=== PATIENT | female | born 1935 | race Caucasian/White ===

== ENCOUNTER → 2016-11-09 | Outpatient (CLI) | payer MEDICARE, OTHER ==
[~2016-11-09] MED LIST: ACET1TAB84 PO; FLEC100T21 PO; FLUO1CRE TD; FURO-85 PO; LISI-461 PO; MULTTAB5 PO; POTA20TA16 PO; PRT/20 PO; RIVA1TAB4 PO; TPRSR/100 PO
[2016-11-09 13:01] LABS: BLOOD UREA NITROGEN 14 mg/dl (7-18); BUN/CREATININE RATIO 23.3 (10-20); CALCIUM 9.2 mg/dl (8.5-10.1); CARBON DIOXIDE 28 mmol/L (21-32); CHLORIDE 106 mmol/L (98-107); CREATININE 0.61 mg/dl (0.60-1.20); GLUCOSE 86 mg/dl (70-99); POTASSIUM 4.2 mmol/L (3.5-5.1); SODIUM 142 mmol/L (136-145)
== END | disposition home or self-care (01) ==
LOC: C.LABOAKS 10:58
PROVIDERS: ATTEND Nurse Practitioner
DX: I10 Essential (primary) hypertension (principal)

== ENCOUNTER → 2017-05-04 | Outpatient (CLI) | payer MEDICARE, OTHER ==
--- NOTE | 2017-05-04 16:09 | MAMMOGRAPHY REPORT ---
BILATERAL DIGITAL SCREENING MAMMOGRAM WITH CAD: 05/04/2017 CLINICAL HISTORY: Routine screening. Patient has no complaints. TECHNIQUE: Current study was also evaluated with a Computer Aided Detection (CAD) system. Bilateral CC and MLO views were obtained. COMPARISON: Comparison is made to exams dated: 03/19/2016 mammogram, 02/03/2015 mammogram - [facility], 07/24/2012 mammogram, and 06/21/2011 mammogram. BREAST COMPOSITION: There are scattered areas of fibroglandular density in both breasts. FINDINGS: No suspicious masses, calcifications, or areas of architectural distortion are noted in ei ther breast. There has been no significant interval change compared to prior exams. Scar markers den ote scars on bilateral upper outer breasts. Bilateral benign-appearing calcifications are again note d. A biopsy marker clip is again noted in the left breast. IMPRESSION: ACR BI-RADS CATEGORY 2: BENIGN There is no mammographic evidence of malignancy. A 1 year screening mammogram is recommended. The pa tient will receive written notification of the results. Approximately 10% of breast cancers are not detected with mammography. A negative mammographic report should not delay biopsy if a clinically suggestive mass is present. Francesca Ramirez M.D. /:05/04/2017 15:29:25 [employer] Workers Supervisor: Dorinda NICOLE(Rosy)(Stefani)(BD), [facility] letter sent: Normal 1/2 BI-RADS Code: ACR BI-RADS Category 2: Benign
== END | disposition home or self-care (01) ==
LOC: C.MAMM 15:10
PROVIDERS: ATTEND Obstetrics & Gynecology
DX: Z12.31 Encounter for screening mammogram for malignant neoplasm of breast (principal)

== ENCOUNTER 2019-08-27 06:58 | Inpatient (IN) ==
[2019-08-27] MEDS ORDERED: SODIUM CHLORIDE 0.9% 500 ML IV ONE (07:07)
[2019-08-27] MEDS ORDERED: METOPROLOL SUCC 50MG EXT REL TAB PO STA (07:07)
[2019-08-27 07:21] LABS: Hematocrit (blood only) 43.4 % (37-47); Hemoglobin 13.8 g/dL (12.0-16.0); Mean Corpuscular Hemoglobin 21.9 pg (25-34); Mean Corpuscular Hgb Conc 31.8 g/dL (32-36); Mean Corpuscular Volume 68.9 fL (80-100); Mean Platelet Volume 9.9 fL (7.4-10.4); Platelet Count 177 K/uL (130-400); RDW Coefficient of Variation 15.7 % (11.5-14.5); RDW Standard Deviation 38.1 fL (36.4-46.3); White Blood Count 6.79 K/uL (4.8-10.8)
--- NOTE | 2019-08-27 07:22 | XRay Report ---
XR chest 1V portable CLINICAL HISTORY: weakness dyspnea COMPARISON STUDY: 10/28/2016 FINDINGS: Mild cardiomegaly. Chronic pleural scarring left lung base. Lungs otherwise appear clear. IMPRESSION: Mild cardiomegaly. Otherwise negative study. The above report was generated using voice recognition software. It may contain grammatical, syntax or spelling errors. Electronically signed by: Roderick Hernandes M.D. 08/27/2019 7:21 AM
[2019-08-27 07:38] LABS: Appearance Urine Clear (Clear); Bilirubin Urine Negative (Negative); Blood Urine Trace (Negative); Color Urine Yellow; Glucose Urine UA Negative (Negative); Ketones Urine Negative (Negative); Leukocyte Esterase Urine 2+ (Negative); Nitrite Urine Negative (Negative); Protein Urine Trace (Negative); Urobilinogen Urine Negative (Negative)
[2019-08-27 07:39] LABS: Alanine Aminotransferase 25 U/L (12-78); Albumin Level 4.1 gm/dl (3.4-5.0); Aspartate Aminotransferase 26 U/L (15-37); Blood Urea Nitrogen 14 mg/dl (7-18); Calcium 9.1 mg/dl (8.5-10.1); Carbon Dioxide 26 mmol/L (21-32); Chloride 105 mmol/L (98-107); Creatinine Clr Calc Pharmacy 61.8 ml/min; Est GFR (African American) 89.1; Est GFR (Non-African American) 76.9; Glucose 98 mg/dl (70-99); Potassium 4.1 mmol/L (3.5-5.1); Sodium 139 mmol/L (136-145)
[2019-08-27] MEDS ORDERED: cefTRIAXone SODIUM 2,000 MG/70 ML BAG IV STA (07:48)
[2019-08-27 07:49] LABS: ALC (manual) 2.16 K/uL (1.2-3.4); ANC (manual) 4.15 K/uL (1.4-6.5); Anisocytosis Present; Basophils # (manual) 0.06 K/uL (0-0.2); Basophils % (manual) 0.9 %; Eosinophils # (manual) 0.06 K/uL (0-0.5); Eosinophils % (manual) 0.9 %; Lymphocytes # (manual) 1.02 K/uL (1.2-3.4); Microcytosis Present; Monocytes # (manual) 0.36 K/uL (0.11-0.59); Monocytes % (manual) 5.3 %; Neutrophils # (manual) 4.15 K/uL (1.4-6.5); Neutrophils % (manual) 61.1 %; Ovalocytes 1+; Poikilocytosis Present; Reactive Lymphocytes # (manual) 1.14 K/uL; Reactive Lymphocytes % (manual) 16.8 %
[2019-08-27 07:51] LABS: Albumin Globulin Ratio 1.2 (0.9-2); Alkaline Phosphatase 74 U/L (45-117); Bilirubin,Total 1.5 mg/dl (0.2-1); Creatine Kinase 52 U/L (26-192); Creatine Kinase MB 1.1 ng/ml (0.5-3.6); Globulin 3.3 gm/dl (2.5-4.0); Thyroid Stimulating Hormone 0.674 uIu/ml (0.300-4.500); Total Protein 7.4 gm/dl (6.4-8.2); Troponin I < 0.015 ng/ml (0-0.045)
[2019-08-27 08:02] LABS: Bacteria Urine Negative (Negative); Epithelial Cell Urine >30 /lpf (0-5); RBC Urine 0-4 /hpf (0-4); WBC Urine >30 /hpf (0-5)
[2019-08-27] MEDS ORDERED: NITROGLYCERIN SL 0.4 MG/TAB TAB SL STA (08:24)
[2019-08-27] MEDS ORDERED: ASPIRIN CHEW 324 MG PO STA (08:24)
--- NOTE | 2019-08-27 09:46 | History & Physical Report ---
Date of Service August 27, 2019 Assessment & Plan (1) Chest pain: Began at 0500 this am upon awakening. Substernal with radiation to b/l shoulders and her back. Only major CAD risk factor is HTN. No family h/o CAD. Pain did improved from 8/10 to 3/10 with SL nitroglycerin. Additional nitropaste 1/2 inch x 1 given in ER for ongoing HTN and chest discomfort. I am uncertain if pain is ischemic vs related to markedly elevated BP vs other. In light of location and radiation of pain along with markedly elevated BP will obtain CTA dissection protocol to r/o aortic dissection. If CTA is negative plan for -- * improved BP control * serial troponins * 2D echo * telemetry Results of above studies will dictate plan of care. Consider stress test tomorrow. Consider formal cardiology consultation (sees Dr Holman from [facility]). If ischemic w/u is negative it is possible her pain/other symptoms are due to the uncontrolled HTN. (2) Hypertensive emergency without congestive heart failure: The patient took her lisinopril this am upon awakening. She also was given metoprolol xl in the ER. BPs briefly responded to this, but systolic BP is now back to 200. Nitro SL and nitropaste were given in the ER without any effect. Will provide amlodipine 5mg po x 1 now. Continue daily lisinopril. Continue BID toprol xl. Records indicate she was on HCTZ in the past. Consider changing her daily lasix to HCTZ. Her BPs have been challenging to control over the last few months and she has had several dose adjustments of her meds. Consider secondary work-up (renin, chidi levels; etc). TSH noted to be normal. Anxiety could be contributing as she reports significant stressors in her life. Fortunately patient appears compensated from CHF standpoint. (3) Paroxysmal atrial fibrillation: In NSR at time of presentation. Cont BB. Cont flecainide. Cont xarelto. Telemetry. (4) Anxiety: Cont klonipin BID. Could consider dose increase if anxiety is felt to be contributing to elevated BPs. (5) Asymptomatic bacteriuria: No symptoms of UTI at this time. Was given rocephin in ER for dirty u/a. Would defer on additional antibiotics at this time. (6) Thalassemia minor: Known diagnosis. This explains her chronic microcytosis. Would defer on additional work-up (iron studies, Hb electrophoresis). CBC is stable. (7) DVT prophylaxis: xarelto place on observation status History of Present Illness Chief Complaint: weakness, chest pain Primary Care Provider: Olman Vigil MD 84yo female with history of PAF who presents with weakness starting at 0500 this am upon awakening. As she went through her morning she simply didn't feel well and felt weak. She checked her BP on her home machine and it "didn't register" because it was so high. She reports recent issues with her HTN (poor control). When the BP machine wouldn't register a blood pressure she immediately took her lisinopril. In fact this medication was recently increased to 40mg from 20mg about 1 month ago. Prior to the increase her morning systolic BPs were 170s. She also had a recent increase in her toprol xl from once daily to BID dosing. Since the toprol xl increase her overall control has finally been better. In addition to the weakness she felt lightheaded and dizzy. No vomiting. No dyspnea. Did have nausea in the middle of the night but none in the ER. She also had chest discomfort - substernal - that radiated through her chest to the back. This occurred about 5am. The pain has lasted all morning. Was relieved with SL nitro. Her pain was 8/10 on pain scale early this am. It is now down to a 3/10. The pain never traveled into the arms or hands but it DID travel to both shoulders. No pain in neck or jaw. No sweats. Allergies Allergy/AdvReac Type Severity Reaction Status Date / Time metronidazole Allergy Intermediate HIVES Verified 08/27/19 08:03 naproxen Allergy Unknown HIVES Verified 08/27/19 08:03 Home Medications Home Medications Medication Instructions Recorded Confirmed Type clonazepam 0.125 mg disintegrating 0.125 mg PO BID tab 07/28/19 08/27/19 History tablet flecainide 100 mg tablet 100 mg PO Q12H #180 tab 07/28/19 08/27/19 History furosemide 40 mg tablet 40 mg PO DAILY tab 07/28/19 08/27/19 History lorazepam 0.5 mg tablet 0.5 mg PO PM PRN tab 07/28/19 08/27/19 History pantoprazole 20 mg tablet,delayed 20 mg PO QAM 07/28/19 08/27/19 History release potassium chloride ER 20 mEq 20 meq PO DAILY tab 07/28/19 08/27/19 History tablet,extended release rivaroxaban 20 mg tablet 20 mg PO QDD tab 07/28/19 08/27/19 History acetaminophen [Tylenol Extra 500 mg PO QID PRN 08/27/19 08/27/19 History Strength] fluocinolone 1 applic TOPICAL BID PRN 08/27/19 08/27/19 History lisinopril 40 mg PO DAILY 08/27/19 08/27/19 History metoprolol succinate [Toprol XL] 150 mg PO BID 08/27/19 08/27/19 History multivitamin 1 tab PO QAM 08/27/19 08/27/19 History Past Med/Surg History Medical History Biopsy of breast (Resolved 02/01/13) [id number] (Acute) Hypokalemia (Acute) Palpitations (Acute 09/05/13) Urinary tract infection (Acute) Dizziness (Acute 09/05/13) Chest pain (Acute) Atrial fibrillation with rapid ventricular response (Chronic) CHF (congestive heart failure) (Chronic) Acute on chronic diastolic CHF (congestive heart failure) (Acute) Atrial fibrillation with rapid ventricular response (Resolved) Congestive heart failure (Acute) Paroxysmal atrial fibrillation (Chronic) Surgical History History of hysterectomy (Chronic) with BSO History of 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 History of dilatation and curettage x 2 Family History Father , age 60 Colorectal cancer Mother , age 98 Dementia Hypertension Stroke Sister , age 60s Mesothelioma Social History Preferred Language: Greek Communication Ability: Effective Configuration Consultant Required: No Beliefs That Will Affect Care: None marital status: Current Living Situation: Alone Current Living Situation Comment: lives at [facility] current occupational status: 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) Other Information That Helps Us Care for You: No other: 2 daughters Feels Safe at Home: Yes Safety Concerns: Feels Safe At This Time Smoking Status: Never smoker Do You Dip or Chew Tobacco: No ; Second Hand Exposure: No ; Tobacco Cessation Education Requested by Patient: No Hx Alcohol Use: Yes Alcohol type: wine Alcohol Intake Frequency: Weekly Hx Substance Use: No Review of Systems Constitutional: no fever, no chills, no fatigue and no anorexia Eyes: no worsening vision Ear, Nose, Mouth, Throat: no nasal congestion, no sore throat and no dysphagia Respiratory: + dyspnea (today only) and + dyspnea on exertion (today only) Cardiovascular: + palpitations; no chest pain and no edema Gastrointestinal: + nausea; no abdominal pain, no vomiting and no blood in stools Genitourinary: no dysuria and no difficulty urinating Musculoskeletal: + joint pain (shoulders) Integumentary: no rash Neurologic: no numbness Psychiatric: + anxiety Endocrine: no DM Hematologic / Lymphatic: no easy bleeding Physical Exam Constitutional: well developed, well nourished and average body habitus; no acute distress and no altered mental status Eyes: PERRL (lens implants b/l) ENMT: external ear and nose normal, oropharynx normal Ears: no TM abnormality Neck: trachea midline, no thyromegaly Respiratory: no respiratory distress and does not use accessory muscles Auscultation: + crackles (left base); no wheezes Cardiovascular: Rate/Rhythm: regular rate and regular rhythm Heart Sounds: normal S1 and normal S2; no murmur Vessels: posterior tibial pulses present, dorsalis pedis pulses present and radial pulses present (symmetric, 2+ b/l ); no JVD Extremities: no edema right carotid upstroke is visually very promine nt Chest (Breasts): Additional Comments: no tenderness to palpation of chest wall Gastrointestinal (Abdomen): normal bowel sounds, soft, nontender, no hepatosplenomegaly Musculoskeletal: no cyanosis or clubbing, extremities motor strength 5/5 Skin: no rashes, warm and dry Neurologic: deep tendon reflexes 2+ bilaterally and moves all extremities; no focal motor deficits Psychiatric: A+Ox3, euthymic affect Lymphatic: no cervical lymphadenopathy Results & Data Vital Signs (Past 12 Hours) Vital Signs Temp Pulse Pulse Resp BP BP Pulse Ox 08/27/19 08:22 51 L 16 169/70 H 96 08/27/19 07:30 57 L 17 193/81 H 97 08/27/19 07:21 58 L 96 08/27/19 07:15 36.5 C 60 16 227/98 H 96 Laboratory Results Laboratory Results - last 24 hr 08/27/19 08/27/19 08/27/19 07:00 07:00 07:30 WBC 6.79 RBC 6.30 H Hgb 13.8 Hct 43.4 MCV 68.9 L MCH 21.9 L MCHC 31.8 L RDW Std Deviation 38.1 RDW Coeff of Mikayla 15.7 H Plt Count 177 MPV 9.9 Immature Gran % (Auto) 0.3 Neut % (Auto) 51.8 Lymph % (Auto) 37.0 Nobles % (Auto) 7.8 Eos % (Auto) 2.7 Baso % (Auto) 0.4 Immature Gran # (Auto) 0.02 Neut # (Auto) 3.52 Lymph # (Auto) 2.51 Nobles # (Auto) 0.53 Eos # (Auto) 0.18 Baso # (Auto) 0.03 Neutrophils % (Manual) 61.1 Lymphocytes % (Manual) 15.0 Reactive Lymphs % (Man) 16.8 Monocytes % (Manual) 5.3 Eosinophils % (Manual) 0.9 Basophils % (Manual) 0.9 Neutrophils # (Manual) 4.15 Total Absolute Neuts 4.15 Lymphocytes # (Manual) 1.02 L Reactive Lymphs # 1.14 Total Abs Lymphocytes 2.16 Monocytes # (Manual) 0.36 Eosinophils # (Manual) 0.06 Basophils # (Manual) 0.06 Poikilocytosis Present Anisocytosis Present Microcytosis Present Ovalocytes 1+ Sodium 139 Potassium 4.1 Chloride 105 Carbon Dioxide 26 Anion Gap 8.0 BUN 14 Creatinine 0.72 Est Cr Clr Drug Dosing 61.8 Est GFR ( Amer) 89.1 Est GFR (Non-Af Amer) 76.9 BUN/Creatinine Ratio 19.0 Glucose 98 Calcium 9.1 Total Bilirubin 1.5 H AST 26 ALT 25 Alkaline Phosphatase 74 Total Creatine Kinase 52 CK-MB (CK-2) 1.1 CK/CKMB % Calc 2.1 Troponin I < 0.015 Total Protein 7.4 Albumin 4.1 Globulin 3.3 Albumin/Globulin Ratio 1.2 TSH 0.674 Specimen Hemolysis Urine Color Yellow Urine Appearance Clear Urine pH 7.0 Ur Specific Jay 1.010 Urine Protein Trace H Urine Glucose (UA) Negative Urine Ketones Negative Urine Blood Trace H Urine Nitrite Negative Urine Bilirubin Negative Urine Urobilinogen Negative Ur Leukocyte Esterase 2+ H Urine RBC 0-4 Urine WBC >30 H Ur Epithelial Cells >30 H Urine Bacteria Negative 08/27/19 08:40 WBC RBC Hgb Hct MCV MCH MCHC RDW Std Deviation RDW Coeff of Mikayla Plt Count MPV Immature Gran % (Auto) Neut % (Auto) Lymph % (Auto) Nobles % (Auto) Eos % (Auto) Baso % (Auto) Immature Gran # (Auto) Neut # (Auto) Lymph # (Auto) Nobles # (Auto) Eos # (Auto) Baso # (Auto) Neutrophils % (Manual) Lymphocytes % (Manual) Reactive Lymphs % (Man) Monocytes % (Manual) Eosinophils % (Manual) Basophils % (Manual) Neutrophils # (Manual) Total Absolute Neuts Lymphocytes # (Manual) Reactive Lymphs # Total Abs Lymphocytes Monocytes # (Manual) Eosinophils # (Manual) Basophils # (Manual) Poikilocytosis Anisocytosis Microcytosis Ovalocytes Sodium Potassium Chloride Carbon Dioxide Anion Gap BUN Creatinine Est Cr Clr Drug Dosing Est GFR ( Amer) Est GFR (Non-Af Amer) BUN/Creatinine Ratio Glucose Calcium Total Bilirubin AST ALT Alkaline Phosphatase Total Creatine Kinase CK-MB (CK-2) CK/CKMB % Calc Troponin I < 0.015 Total Protein Albumin Globulin Albumin/Globulin Ratio TSH Specimen Hemolysis Urine Color Urine Appearance Urine pH Ur Specific Jay Urine Protein Urine Glucose (UA) Urine Ketones Urine Blood Urine Nitrite Urine Bilirubin Urine Urobilinogen Ur Leukocyte Esterase Urine RBC Urine WBC Ur Epithelial Cells Urine Bacteria Diagnostic Findings 1. chest - scarring left base, otherwise no infiltrates 2. EKG #1 - my reading - sinus leilani, first degree AV block, RSR' pattern anterior leads; no ST changes 3. EKG #2 - my reading - sinus leilani, first degree AV block, RSR' pattern, nonspecific ST changes III, AVF Code Status & VTE Plan Code Status DNR VTE Prophylaxis Plan VTE Prophylaxis will be ordered: Yes PG Care Time/CCT Total # of Minutes Spent Total Time Spent with Patient: Total time spent is greater than 50% in c oordination of care (as documented) at patient's floor/unit and/or counseling patient: (1) Chest pain Chest pain type: unspecified Qualified Code(s): R07.9 - Chest pain, unspecified
[2019-08-27] MEDS ORDERED: NITROGLYCERIN 2% OINTMENT 30GM TUBE EXT ONE (09:59)
[2019-08-27] MEDS ORDERED: AMLODIPINE BESYLATE 5 MG TAB PO ONE (10:42)
[2019-08-27] MEDS ORDERED: OPTIRAY 320 125ml IV PRN (10:57)
--- NOTE | 2019-08-27 11:18 | CT Scan Report ---
CT angio chest dissec wo/w con CT DOSE: 1217.23 mGycm HISTORY: Pain cp, b/l shoulder back pain, HTN; eval dissection TECHNIQUE: Multiaxial CT images of the chest, abdomen, and pelvis were performed both before and afte r the intravenous administration of contrast to evaluate the aorta. Maximal intensity projection imag es were also obtained. A dose lowering technique was utilized adhering to the principles of ALARA. COMPARISON STUDY: None. FINDINGS: Moderate cardiomegaly. Pulmonary vasculature enhances appropriately. Thoracic aorta shows minimal scattered atherosclerotic change. There is no evidence for aneurysm or d issection. Mild dependent bibasilar atelectasis. Lungs otherwise appear clear. IMPRESSION: 1. No evidence for aneurysm or dissection. 2. Moderate cardiomegaly. 3. Dependent bibasilar atelectasis. The above report was generated using voice recognition software. It may contain grammatical, syntax or spelling errors. Electronically signed by: Roderick Hernandes M.D. 08/27/2019 11:17 AM
[2019-08-27] MEDS ORDERED: NITROGLYCERIN SL 0.4 MG/TAB TAB SL PRN (11:39)
[2019-08-27] MEDS ORDERED: ONDANSETRON INJ 2 MG/ML 2 ML VIAL IV PRN (11:39)
[2019-08-27] MEDS ORDERED: SODIUM CHLORIDE 0.9% 1000ML 1,000 ML IV SCH (12:00)
[2019-08-27] MEDS ORDERED: ACETAMINOPHEN 500 MG TAB ONE (14:03)
[2019-08-27] MEDS: ACETAMINOPHEN 500 MG TAB PO PRN ×2 (14:04→20:31)
[2019-08-27] MEDS: FLECAINIDE ACETATE 100 MG TABLET PO SCH ×2 (14:05→20:30)
[2019-08-27] MEDS: RIVAROXABAN 20 MG TAB PO SCH (16:17)
--- NOTE | 2019-08-27 16:31 | Emergency Department Note ---
Entered by Tonny Coates acting as a scribe for History of Present Illness General Chief complaint: Chest Pain Stated complaint: chest pain Time Seen by Provider: 08/27/19 07:00 Source: patient History of Present Illness Provider complaint: Weakness Onset (ago): hour(s) (This morning) Location: head Radiation: non-radiation Pain Consistency: + constant Quality: + other (Pressure) Associated symptoms: + chest pain (Pressure) and + weakness The patient is an 84 year old female who presents to the Emergency Room with complaints of constant generalized weakness that she noticed this morning upon waking up. The patient states that when she noticed the weakness she took her blood pressure and it was too high to be read on her machine. The patient notes that she has taken her 40mg Lisinopril dose this morning but has not taken her Metoprolol. The patient adds that she had some chest pressure as well. The patient has a history of anxiety and admits to being anxious over this past week. The patient states that she took one of her Klonopin this morning. The patient denies any abdominal pain. Per EMS she has a history of Afib and CHF. EMS reports her pressures were initially 240s/100s but upon arrival to the ED they were around 180/90. Her pulses en route were in the 50s. The only medication she received from EMS was 324mg Aspirin. Home Medications Home Medications Medication Instructions Recorded Confirmed Type clonazepam 0.125 mg disintegrating 0.125 mg PO BID tab 07/28/19 08/27/19 History tablet flecainide 100 mg tablet 100 mg PO Q12H #180 tab 07/28/19 08/27/19 History furosemide 40 mg tablet 40 mg PO DAILY tab 07/28/19 08/27/19 History lorazepam 0.5 mg tablet 0.5 mg PO PM PRN tab 07/28/19 08/27/19 History pantoprazole 20 mg tablet,delayed 20 mg PO QAM 07/28/19 08/27/19 History release potassium chloride ER 20 mEq 20 meq PO DAILY tab 07/28/19 08/27/19 History tablet,extended release rivaroxaban 20 mg tablet 20 mg PO QDD tab 07/28/19 08/27/19 History acetaminophen [Tylenol Extra 500 mg PO QID PRN 08/27/19 08/27/19 History Strength] fluocinolone 1 applic TOPICAL BID PRN 08/27/19 08/27/19 History lisinopril 40 mg PO DAILY 08/27/19 08/27/19 History metoprolol succinate [Toprol XL] 150 mg PO BID 08/27/19 08/27/19 History multivitamin 1 tab PO QAM 08/27/19 08/27/19 History Allergies Allergy/AdvReac Type Severity Reaction Status Date / Time metronidazole Allergy Intermediate HIVES Verified 08/27/19 08:03 naproxen Allergy Unknown HIVES Verified 08/27/19 08:03 Past Med/Surg History Medical History Biopsy of breast (Resolved 02/01/13) [id number] (Acute) Hypokalemia (Acute) Palpitations (Acute 09/05/13) Urinary tract infection (Acute) Dizziness (Acute 09/05/13) Chest pain (Acute) Atrial fibrillation with rapid ventricular response (Chronic) CHF (congestive heart failure) (Chronic) Acute on chronic diastolic CHF (congestive heart failure) (Acute) Atrial fibrillation with rapid ventricular response (Resolved) Congestive heart failure (Acute) Paroxysmal atrial fibrillation (Chronic) Surgical History History of hysterectomy (Chronic) with BSO History of 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 History of dilatation and curettage x 2 Family History Father , age 60 Colorectal cancer Mother , age 98 Dementia Hypertension Stroke Sister , age 60s Mesothelioma Social History Preferred Language: Occitan Communication Ability: Effective 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 Beliefs That Will Affect Care: None marital status: Current Living Situation: Alone Current Living Situation Comment: lives at the [facility] current occupational status: 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 and A total of 10 systems reviewed and were otherwise negative Physical Exam Vital Signs Vital Signs - 24 hr 08/27/19 08:22 08/27/19 10:00 Pulse Rate [Apical] 51 L 61 Pulse Rhythm [Apical] Regular Regular Respiratory Rate 16 17 Respiratory Effort / Characteristics Non-Labored Spontaneous Non-Labored Spontaneous Respiratory Depth Normal Normal Respiratory Pattern Regular Regular Blood Pressure [Right Arm] 169/70 H 208/73 H Blood Pressure Mean [Right Arm] 103 118 Pulse Oximetry 96 96 Oxygen Delivery Method Room Air Room Air GENERAL: Awake, alert, well-appearing, in no distress HENT: Normocephalic, atraumatic. Oropharynx unremarkable. EYES: Normal conjunctiva. Sclera non-icteric. NECK: Supple. No nuchal rigidity. FROM. No masses. RESPIRATORY: Clear to auscultation. No wheezes. No rales. Normal respiratory effort. CARDIAC: Normal rate. Normal rhythm. No murmurs. No rubs. Extremities warm and well perfused. Pulses equal. No JVD. GI: Soft, non-distended. No tenderness to palpation. No rebound or guarding. No masses. RECTAL: Deferred. MUSCULOSKELETAL: Atraumatic. Chest examination reveals no tenderness. The back is symmetrical on inspection without obvious abnormality. There is no CVA tenderness to palpation. No joint edema. LOWER EXTREMITIES: Calves are equal size bilaterally and non-tender. No edema. No discoloration. NEURO: Normal sensorium. No sensory or motor deficits noted. Course 0700: Past medical records reviewed. The patient was evaluated in room B10, and a complete history and physical examination were performed. 822: I reevaluated the patient and she is now complaining of chest pain. 929: I reassessed the patient and she is feeling much better. I discussed the treatment plan with the patient and she agreed. 0939: I spoke to Dr. Luis Narayan [facility] Hospitalist about the patient's case. He is going to accept the patient for further evaluation. Consultations Consultation #1: I spoke to Dr. Luis Narayan [facility] Hospitalist about the patient's case. He is going to accept the patient for further evaluation. Time: 09:39 Administered Medications Acetaminophen (Tylenol) 500 mg PO QID PRN PRN Reason: Pain Stop: 09/26/19 11:38 Last Admin: 08/28/19 03:21 Dose: 500 mg Documented by: [id number] Admin: 08/27/19 20:31 Dose: 500 mg Documented by: [id number] Admin: 08/27/19 14:04 Dose: 500 mg Documented by: [id number] Cosigned by: [id number] Clonazepam (Klonopin) 0.125 mg PO BID RAMIRO Stop: 09/26/19 20:59 Last Admin: 08/27/19 20:31 Dose: 0.125 mg Documented by: [id number] Flecainide Acetate (Tambocor) 100 mg PO Q12 RAMIRO Stop: 09/26/19 11:38 Last Admin: 08/27/19 20:30 Dose: 100 mg Documented by: [id number] Admin: 08/27/19 14:05 Dose: 100 mg Documented by: [id number] Cosigned by: [id number] Ioversol (Optiray 320 125ml) 120 ml IV ONCE PRN PRN Reason: Interaction Checking Stop: 08/31/19 10:56 Last Admin: 08/27/19 10:58 Dose: 120 ml Documented by: [id number] Metoprolol Succinate (Toprol Xl) 150 mg PO BID RAMIRO Stop: 09/26/19 20:59 Last Admin: 08/27/19 20:30 Dose: 150 mg Documented by: [id number] Rivaroxaban (Xarelto) 20 mg PO QDD RAMIRO Stop: 09/26/19 16:29 Last Admin: 08/27/19 16:17 Dose: 20 mg Documented by: [id number] Discontinued Medications Acetaminophen (Tylenol) Confirm Administered Dose 500 mg .ROUTE .STK-MED ONE Stop: 08/27/19 14:04 Last Admin: 08/27/19 15:30 Dose: Not Given Documented by: [id number] Amlodipine Besylate (Norvasc) 5 mg PO NOW ONE Stop: 08/27/19 10:43 Last Admin: 08/27/19 11:02 Dose: 5 mg Documented by: [id number] Aspirin (Aspirin) 324 mg PO NOW STA Stop: 08/27/19 08:25 Last Admin: 08/27/19 08:27 Dose: 324 mg Documented by: [id number] Sodium Chloride (Nss) 500 mls @ 999 mls/hr IV .Q31M ONE Stop: 08/27/19 07:37 Last Infusion: 08/27/19 09:04 Dose: 0 mls/hr Documented by: [id number] Admin: 08/27/19 07:24 Dose: 999 mls/hr Documented by: [id number] Ceftriaxone Sodium (Rocephin) 2,000 mg in 70 mls @ 140 mls/hr IV NOW STA Stop: 08/27/19 08:17 Last Infusion: 08/27/19 09:04 Dose: 0 mls/hr Documented by: [id number] Admin: 08/27/19 08:22 Dose: 140 mls/hr Documented by: [id number] Sodium Chloride (Nss 1000ml) 1,000 mls @ 100 mls/hr IV .Q10H RAMIRO Stop: 08/27/19 16:59 Last Infusion: 08/27/19 18:41 Dose: 0 mls/hr Documented by: [id number] Admin: 08/27/19 11:57 Dose: 100 mls/hr Documented by: [id number] Metoprolol Succinate (Toprol Xl) 100 mg PO NOW STA Stop: 08/27/19 07:08 Last Admin: 08/27/19 07:24 Dose: 100 mg Documented by: [id number] Nitroglycerin (Nitrostat) 0.4 mg SL NOW STA Stop: 08/27/19 08:25 Last Admin: 08/27/19 08:28 Dose: 0.4 mg Documented by: [id number] Nitroglycerin (Nitro-Bid 2%) 0.5 inch EXT NOW ONE Stop: 08/27/19 10:00 Last Admin: 08/27/19 10:13 Dose: 0.5 inch Documented by: [id number] Medical Decision Making Differential Diagnosis Differential Diagnosis includes but is not limited to dehydration, stroke, anem ia, hypoglycemia, hyponatremia, hypernatremia, urinary tract infection, pneumonia, bronchitis, sepsis, gastroenteritis, additional abdominal pathology, metabolic abnormalities and infections. Medical Records Attestation: I reviewed the patient's medical records. Home Medications Current Medication List: was personally reviewed by me Laboratory Data Attestation: I reviewed the patient's lab results. Result diagrams: 08/27/19 07:00 08/28/19 06:42 Lab Results 08/27/19 08/27/19 08/27/19 Range/Units 07:00 07:00 07:30 WBC 6.79 (4.8-10.8) K/uL RBC 6.30 H (4.2-5.4) M/uL Hgb 13.8 (12.0-16.0) g/dL Hct 43.4 (37-47) % MCV 68.9 L (80-100) fL MCH 21.9 L (25-34) pg MCHC 31.8 L (32-36) g/dL RDW Std Deviation 38.1 (36.4-46.3) fL RDW Coeff of Mikayla 15.7 H (11.5-14.5) % Plt Count 177 (130-400) K/uL MPV 9.9 (7.4-10.4) fL Immature Gran % (Auto) % Neut % (Auto) % Lymph % (Auto) % [place] % (Auto) % Eos % (Auto) % Baso % (Auto) % Immature Gran # (Auto) (0.00-0.02) K/uL Neut # (Auto) (1.4-6.5) K/uL Lymph # (Auto) (1.2-3.4) K/uL [place] # (Auto) (0.11-0.59) K/uL Eos # (Auto) (0-0.5) K/uL Baso # (Auto) (0-0.2) K/uL Neutrophils % (Manual) 61.1 % Lymphocytes % (Manual) 15.0 % Reactive Lymphs % (Man) 16.8 % Monocytes % (Manual) 5.3 % Eosinophils % (Manual) 0.9 % Basophils % (Manual) 0.9 % Neutrophils # (Manual) 4.15 (1.4-6.5) K/uL Total Absolute Neuts 4.15 (1.4-6.5) K/uL Lymphocytes # (Manual) 1.02 L (1.2-3.4) K/uL Reactive Lymphs # 1.14 K/uL Total Abs Lymphocytes 2.16 (1.2-3.4) K/uL Monocytes # (Manual) 0.36 (0.11-0.59) K/uL Eosinophils # (Manual) 0.06 (0-0.5) K/uL Basophils # (Manual) 0.06 (0-0.2) K/uL Poikilocytosis Present Anisocytosis Present Microcytosis Present Ovalocytes 1+ Sodium 139 (136-145) mmol/L Potassium 4.1 (3.5-5.1) mmol/L Chloride 105 (98-107) mmol/L Carbon Dioxide 26 (21-32) mmol/L Anion Gap 8.0 (3-11) BUN 14 (7-18) mg/dl Creatinine 0.72 (0.6-1.2) mg/dl Est Cr Clr Drug Dosing 61.8 ml/min Est GFR ( Amer) 89.1 Est GFR (Non-Af Amer) 76.9 BUN/Creatinine Ratio 19.0 (10-20) Glucose 98 (70-99) mg/dl Calcium 9.1 (8.5-10.1) mg/dl Total Bilirubin 1.5 H (0.2-1) mg/dl AST 26 (15-37) U/L ALT 25 (12-78) U/L Alkaline Phosphatase 74 (45-117) U/L Total Creatine Kinase 52 (26-192) U/L CK-MB (CK-2) 1.1 (0.5-3.6) ng/ml CK/CKMB % Calc 2.1 (0-3.0) Troponin I < 0.015 (0-0.045) ng/ml Total Protein 7.4 (6.4-8.2) gm/dl Albumin 4.1 (3.4-5.0) gm/dl Globulin 3.3 (2.5-4.0) gm/dl Albumin/Globulin Ratio 1.2 (0.9-2) TSH 0.674 (0.300-4.500) uIu/ml Specimen Hemolysis Urine Color Yellow Urine Appearance Clear (Clear) Urine pH 7.0 (4.5-7.5) Ur Specific [place] 1.010 (1.000-1.030) Urine Protein Trace H (Negative) Urine Glucose (UA) Negative (Negative) Urine Ketones Negative (Negative) Urine Blood Trace H (Negative) Urine Nitrite Negative (Negative) Urine Bilirubin Negative (Negative) Urine Urobilinogen Negative (Negative) Ur Leukocyte Esterase 2+ H (Negative) Urine RBC 0-4 (0-4) /hpf Urine WBC >30 H (0-5) /hpf Ur Epithelial Cells >30 H (0-5) /lpf Urine Bacteria Negative (Negative) 08/27/19 Range/Units 08:40 WBC (4.8-10.8) K/uL RBC (4.2-5.4) M/uL Hgb (12.0-16.0) g/dL Hct (37-47) % MCV (80-100) fL MCH (25-34) pg MCHC (32-36) g/dL RDW Std Deviation (36.4-46.3) fL RDW Coeff of Mikayla (11.5-14.5) % Plt Count (130-400) K/uL MPV (7.4-10.4) fL Immature Gran % (Auto) % Neut % (Auto) % Lymph % (Auto) % [place] % (Auto) % Eos % (Auto) % Baso % (Auto) % Immature Gran # (Auto) (0.00-0.02) K/uL Neut # (Auto) (1.4-6.5) K/uL Lymph # (Auto) (1.2-3.4) K/uL [place] # (Auto) (0.11-0.59) K/uL Eos # (Auto) (0-0.5) K/uL Baso # (Auto) (0-0.2) K/uL Neutrophils % (Manual) % Lymphocytes % (Manual) % Reactive Lymphs % (Man) % Monocytes % (Manual) % Eosinophils % (Manual) % Basophils % (Manual) % Neutrophils # (Manual) (1.4-6.5) K/uL Total Absolute Neuts (1.4-6.5) K/uL Lymphocytes # (Manual) (1.2-3.4) K/uL Reactive Lymphs # K/uL Total Abs Lymphocytes (1.2-3.4) K/uL Monocytes # (Manual) (0.11-0.59) K/uL Eosinophils # (Manual) (0-0.5) K/uL Basophils # (Manual) (0-0.2) K/uL Poikilocytosis Anisocytosis Microcytosis Ovalocytes Sodium (136-145) mmol/L Potassium (3.5-5.1) mmol/L Chloride (98-107) mmol/L Carbon Dioxide (21-32) mmol/L Anion Gap (3-11) BUN (7-18) mg/dl Creatinine (0.6-1.2) mg/dl Est Cr Clr Drug Dosing ml/min Est GFR ( Amer) Est GFR (Non-Af Amer) BUN/Creatinine Ratio (10-20) Glucose (70-99) mg/dl Calcium (8.5-10.1) mg/dl Total Bilirubin (0.2-1) mg/dl AST (15-37) U/L ALT (12-78) U/L Alkaline Phosphatase (45-117) U/L Total Creatine Kinase (26-192) U/L CK-MB (CK-2) (0.5-3.6) ng/ml CK/CKMB % Calc (0-3.0) Troponin I < 0.015 (0-0.045) ng/ml Total Protein (6.4-8.2) gm/dl Albumin (3.4-5.0) gm/dl Globulin (2.5-4.0) gm/dl Albumin/Globulin Ratio (0.9-2) TSH (0.300-4.500) uIu/ml Specimen Hemolysis Urine Color Urine Appearance (Clear) Urine pH (4.5-7.5) Ur Specific [place] (1.000-1.030) Urine Protein (Negative) Urine Glucose (UA) (Negative) Urine Ketones (Negative) Urine Blood (Negative) Urine Nitrite (Negative) Urine Bilirubin (Negative) Urine Urobilinogen (Negative) Ur Leukocyte Esterase (Negative) Urine RBC (0-4) /hpf Urine WBC (0-5) /hpf Ur Epithelial Cells (0-5) /lpf Urine Bacteria (Negative) Imaging Data Radiologist's Impression: Radiology results as stated below per my review and the radiologist's interpretation: XR chest 1V portable CLINICAL HISTORY: weakness dyspnea COMPARISON STUDY: 10/28/2016 FINDINGS: Mild cardiomegaly. Chronic pleural scarring left lung base. Lungs otherwise appear clear. IMPRESSION: Mild cardiomegaly. Otherwise negative study. The above report was generated using voice recognition software. It may contain grammatical, syntax or spelling errors. Electronically signed by: Roderick Hernandes M.D. 08/27/2019 7:21 AM ECG Data Attestation: I personally reviewed and interpreted this ECG as follows: Indication: weakness Rate (beats per minute): 56 Rhythm: sinus bradycardia Findings: + other (Normal axis, QTC of 449) and + 1st degree AV block; no ST depression, no ST elevation and no acute ischemic change Additional Comments: REPEAT: SB rate of 50, 1st degree AV block, No ST elevation or depression, Normal axis, QTC 444 Blood Pressure Blood Pressure Findings: Elevated blood pressure Blood Pressure Disposition: further management by hospitalist MDM Narrative This is an 84-year-old female who presents the emergency department complaining of weakness. Patient does not have an elevation in her white blood cell count is afebrile. [place] through the patient's evaluation she began complaining of chest pain. For this she was given nitro. This resulted in relief of the patient's symptoms. Because of the patient's family history of cardiac disease she was placed in the emergency department for observation at 730 to avoid a hospital admission however the patient's chest pain was relieved by nitro and she was removed from observation at 9 AM for admission. I did discuss the case with the hospitalist service who agreed to admit the patient. Patient was in agreement with the treatment plan. Impression & Plan Chest pain Discharge Plan Visit Data *Final* Discharge Date/Time: 08/27/19 11:22 Chief Complaint: Chest Pain Stated Complaint: chest pain ED Provider: Maynor Alexander Discharge Problem: Chest pain Patient Disposition: Admitted As Inpatient Discharge Instructions Interventions: ED Discharge Assessment Last Done: 08/27/19 11:22 The scribe's documentation has been prepared under my direction and personally reviewed by me in its entirety. I confirm that the note above accurately reflects all work, treatment, procedures, and medical decision making performed by me.
[2019-08-27] MEDS: METOPROLOL SUCC 50MG EXT REL TAB PO SCH (20:30)
[2019-08-27] MEDS: clonazePAM 0.5 MG TAB PO SCH (20:31)
[2019-08-28] MEDS: ACETAMINOPHEN 500 MG TAB PO PRN ×2 (03:21→14:30)
[2019-08-28 07:29] LABS: Potassium 3.7 mmol/L (3.5-5.1)
[2019-08-28 07:30] LABS: BUN Creatinine Ratio 18.4 (10-20); Calcium 8.7 mg/dl (8.5-10.1); Creatinine Clr Calc Pharmacy 76.8 ml/min; Est GFR (African American) 97.5; Est GFR (Non-African American) 84.2
[2019-08-28] MEDS: MULTIVITAMIN TAB PO SCH (08:42)
[2019-08-28] MEDS: FLECAINIDE ACETATE 100 MG TABLET PO SCH ×2 (08:42→20:50)
[2019-08-28] MEDS: PANTOprazole 40 MG TAB PO SCH (08:42)
[2019-08-28] MEDS: METOPROLOL SUCC 50MG EXT REL TAB PO SCH ×2 (08:43→20:50)
--- NOTE | 2019-08-28 08:48 | Cardiology Consultation ---
Date of Consultation August 28, 2019 Assessment & Plan (1) Hypertensive emergency without congestive heart failure: She presents now with significant hypertension, her blood pressure has been increasing over the last year and her medications have been titrated but still she had significant hypertension. I agree with adding another class of medications (amlodipine) and that seems to have helped but her blood pressure is quite elevated this morning. She tells me that her blood pressure typically is higher in the morning then around noon, perhaps due to her morning medications affecting it. I think she will need a higher dose of amlodipine and I taken liberty of adding another 5 mg this morning in hopes that her blood pressure will come down by midday. I doubt she will be hypotensive. (2) Chest pain: She had some chest discomfort, it was a pressure sensation and although it could represent myocardial ischemia it was probably related to the hypertension and there is no evidence of myocardial damage. With her history of several nega tive stress tests, despite her risk factors for coronary disease, I would not further evaluate. (3) Paroxysmal atrial fibrillation: She has paroxysmal atrial fibrillation but it has been well controlled on her current regimen of flecainide and beta-blockade. She should remain on an anticoagulant, currently Xarelto. (4) CHF (congestive heart failure): She did present with congestive heart failure on the past but did not have shortness of breath this admission. Her chest x-ray or CT scan do not suggest CHF. She is maintained on a diuretic which I would continue. History of Present Illness Reason for Consultation: Chest discomfort, hypertension Attending Physician: Caio Smith History of Present Illness This is an 83-year-old woman with a history of hypertension, arthritis and thalassemia trait who moved here from [place]. She presented to the emergency room after she was awakened in the sports book writer hours with pal pitations, dizziness and weakness and was identified as having atrial fibrillation on September 05, 2013. She also reports having a heaviness in her chest. The arrhythmia converted in the emergency room after intravenous Cardizem, the duration was about 4-1/2 hours in total. By symptoms this is her first episode of atrial fibrillation. We therefore treated her conservatively with AV blockers, however she presented to the emergency room several more times with atrial fibrillation and a rapid heart rate, although she was not having hemodynamic symptoms during the arrhythmia. We therefore started her on flecainide in the early part of November 2013, at 50 mg twice a day. She then returned on November 12, 2013 with another episode of atrial fibrillation and her flecainide was increased to 100 mg twice a day. She has had no further sustained episodes of atrial fibrillation that she is aware of, we do have her on Xarelto. She was feeling a little bit of lightheadedness when she takes her flecainide and her metoprolol at the same time, I therefore changed to a long-acting metoprolol succinate preparation and have her take it in the evening. With these changes she felt very well. She presented to the emergency room again on June 06, 2015 with progressive weight gain and shortness of breath and was found to be in heart failure. Her echocardiogram was not significantly changed, she was diuresed and a pharmacologic stress ECHO was done which showed no ischemia. She had difficulty with chest pressure which sounded like it could be anginal. This was described initially in 2012 when she presented with atrial fibrillation, she also had it when she arrived in the emergency room June 06, 2015 but her enzymes were negative. She described having exertional symptoms of chest heaviness causing her to stop walking (she typically walked up and down the [place] where she lives at the [place] 4 times, however then with only 2 times she has the chest pressure and had to stop). We therefore performed a treadmill nuclear study on 09/26/2015 which was negative for ischemia. She presents now not feeling well and being very hypertensive. She was having some chest discomfort as well which she describes as a heaviness in her chest. This was present before she came in and while she was in the emergency room, she believes it lasted most of the morning but her enzymes and electrocardiograms we re negative for myocardial injury. She has not had recurrence of that. She has not had palpitations to suggest recurrent atrial fibrillation. Allergies Allergy/AdvReac Type Severity Reaction Status Date / Time metronidazole Allergy Intermediate HIVES Verified 08/27/19 08:03 naproxen Allergy Unknown HIVES Verified 08/27/19 08:03 Home Medications Home Medications Medication Instructions Recorded Confirmed Type clonazepam 0.125 mg disintegrating 0.125 mg PO BID tab 07/28/19 08/27/19 History tablet flecainide 100 mg tablet 100 mg PO Q12H #180 tab 07/28/19 08/27/19 History furosemide 40 mg tablet 40 mg PO DAILY tab 07/28/19 08/27/19 History lorazepam 0.5 mg tablet 0.5 mg PO PM PRN tab 07/28/19 08/27/19 History pantoprazole 20 mg tablet,delayed 20 mg PO QAM 07/28/19 08/27/19 History release potassium chloride ER 20 mEq 20 meq PO DAILY tab 07/28/19 08/27/19 History tablet,extended release rivaroxaban 20 mg tablet 20 mg PO QDD tab 07/28/19 08/27/19 History acetaminophen [Tylenol Extra 500 mg PO QID PRN 08/27/19 08/27/19 History Strength] fluocinolone 1 applic TOPICAL BID PRN 08/27/19 08/27/19 History lisinopril 40 mg PO DAILY 08/27/19 08/27/19 History metoprolol succinate [Toprol XL] 150 mg PO BID 08/27/19 08/27/19 History multivitamin 1 tab PO QAM 08/27/19 08/27/19 History Patient History Medical History Biopsy of breast (Resolved 02/01/13) [id number] (Acute) Hypokalemia (Acute) Palpitations (Acute 09/05/13) Urinary tract infection (Acute) Dizziness (Acute 09/05/13) Chest pain (Acute) Atrial fibrillation with rapid ventricular response (Chronic) CHF (congestive heart failure) (Chronic) Acute on chronic diastolic CHF (congestive heart failure) (Acute) Atrial fibrillation with rapid ventricular response (Resolved) Congestive heart failure (Acute) Paroxysmal atrial fibrillation (Chronic) Surgical History History of hysterectomy (Chronic) with BSO History of 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 History of dilatation and curettage x 2 Family History Father , age 60 Colorectal cancer Mother , age 98 Dementia Hypertension Stroke Sister , age 60s Mesothelioma Social History Preferred Language: Slovak Communication Ability: Effective 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 Required: No Beliefs That Will Affect Care: None marital status: Current Living Situation: Alone Current Living Situation Comment: lives at the [place] current occupational status: 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 HEENT: Unremarkable Neck: No jugular venous distention, carotid pulses are normal and equal bilaterally without bruits. Pulmonary: Basilar crackles on auscultation bilaterally. Cardiac: Regular rhythm with no murmur, gallop or rub. Abdomen: Soft, nontender with normal bowel sounds. Extremities: No edema. Distal pulses intact. Neurologic: No focal findings. Gait is steady. Skin: No rash, ecchymoses or petechiae. Results & Data Vital Signs (Past 12 Hours) Vital Signs Temp Pulse Pulse Resp BP Pulse Ox 08/28/19 07:52 37.1 C 54 L 16 180/72 H 93 08/28/19 03:06 37.0 C 54 L 18 160/65 H 92 08/27/19 23:58 56 L 08/27/19 23:37 36.8 C 58 L 18 151/65 H 93 Laboratory Results Abnormal lab results 08/28/19 Range/Units 06:42 Chloride 111 H (98-107) mmol/L Creatinine 0.59 L (0.6-1.2) mg/dl Diagnostic Findings Electrocardiography done several times shows sinus bradycardia with no acute changes. Echocardiography on August 27, 2019 shows normal left ventricular size and function with no wall motion abnormalities. She does have mild concentric left ventricular hypertrophy. PG Care Time/CCT Total # of Minutes Spent Total Time Spent with Patient: Total time spent is greater than 50% in coordination of care (as documented) at patient's floor/unit and/or counseling patient:
[2019-08-28] MEDS: clonazePAM 0.5 MG TAB PO SCH ×2 (08:53→20:54)
[2019-08-28] MEDS ORDERED: lisinopriL 40 MG TAB PO SCH (09:00)
[2019-08-28] MEDS ORDERED: AMLODIPINE BESYLATE 5 MG TAB PO SCH (09:00)
[2019-08-28] MEDS ORDERED: AMLODIPINE BESYLATE 5 MG TAB PO STA (09:17)
[2019-08-28] MEDS: RIVAROXABAN 20 MG TAB PO SCH ×2 (16:39→21:51)
[2019-08-28] MEDS ORDERED: FUROSEMIDE 40 MG TAB PO ONE (18:00)
--- NOTE | 2019-08-28 19:26 | Hospitalist Progress Note ---
Date of Service August 28, 2019 Assessment & Plan (1) Hypertensive emergency without congestive heart failure: pt continues to have severe, labile HTN with little response to date despite increasing doses of amlodipine. currently on large dose of BID beta evonne, max dose of lisinopril, and amlodipine. had been on lasix as outpatient - hadn't received thus far. plan - * renal artery doppler - r/o BRIAN * check renin/chidi levels in am * increase amlodipine to 5mg BID * make lisinopril 20mg BID * cont BB at BID dosing * consider substituting HCTZ or aldactone for lasix as former 2 will provide better BP coverage * if anxiety is contributing to BP lability - and I think it probably is to a degree - increase klonipin to 0.25mg BID patient/daughter agree w/ plan of care (2) Chest pain: likely 2nd to HTN emergency / severe HTN no evidence of ACS or ischemia trops neg x 3 echo w/o wall motion abnormalities seen by her primary power ballast machine operator, Dr Holman - agrees with treating BP; defer on additional w/u for chest pain at this time (3) Paroxysmal atrial fibrillation: Remains in NSR. Cont BB. Cont flecainide. Cont xarelto. Telemetry. (4) Anxiety: Increase klonipin to 0.25mg BID. Could consider increasing to TID dosing as well. (5) Asymptomatic bacteriuria: No symptoms of UTI at this time. Was given rocephin in ER for dirty u/a. Would defer on additional antibiotics at this time. Urine cx ultimately showed contamination. (6) Thalassemia minor: Known diagnosis. This explains her chronic microcytosis. Would defer on additional work-up (iron studies, Hb electrophoresis). CBC and hemoglobin are stable. (7) DVT prophylaxis: xarelto due to severe HTN will place on full admission status I certify that the inpatient services were ordered in accordance with Medicare regulations governing the order. This includes certification that hospital inpatient services are reasonable and necessary and in the case of services not specified as inpatient-only under 42 CFR 419.22(n), that they are appropriately provided as inpatient services in accordance to with the 2-midnight benchmark under 43 CFR 412.3(e) Subjective tele stable overnight no PAF admits to anxiety - got upset this afternoon that she hadn't been discharged, she was worried about hospital bills, etc spoke with daughter - she, too, also reports her mother has had increasing anxiety over last few weeks about various things denies any chest pain Review of Systems Constitutional: no fever, no chills, no fatigue and no anorexia Respiratory: no cough and no dyspnea Cardiovascular: no chest pain, no orthopnea, no paroxysmal nocturnal dyspnea and no edema Gastrointestinal: no abdominal pain, no nausea and no vomiting Physical Exam Constitutional: well developed and well nourished; no acute distress ENMT: external ear and nose normal, oropharynx normal Respiratory: normal respiratory effort, lungs clear to auscultation Cardiovascular: Rate/Rhythm: regular rate and regular rhythm Heart Sounds: normal S1 and normal S2; no murmur Vessels: posterior tibial pulses present and dorsalis pedis pulses present; no JVD Extremities: no edema Gastrointestinal (Abdomen): normal bowel sounds, soft, nontender, no hepatosplenomegaly Psychiatric: Orientation: alert and oriented x 3 Affect: + anxious affect Results & Data Vital Signs (Past 12 Hours) Vital Signs Temp Pulse Pulse Resp BP BP Pulse Ox 08/28/19 15:55 37.0 C 61 17 198/77 H 94 08/28/19 15:29 61 08/28/19 15:25 188/78 H 08/28/19 11:44 37.2 C 59 L 20 191/75 H 90 08/28/19 10:32 60 172/64 H 08/28/19 08:00 56 L 08/28/19 07:52 37.1 C 54 L 16 180/72 H 93 Laboratory Results Laboratory Results - last 24 hr 08/27/19 08/27/19 08/28/19 07:00 20:24 06:42 Immature Gran % (Auto) Neut % (Auto) Lymph % (Auto) [place] % (Auto) Eos % (Auto) Baso % (Auto) Immature Gran # (Auto) Neut # (Auto) Lymph # (Auto) [place] # (Auto) Eos # (Auto) Baso # (Auto) Sodium 142 Potassium 3.7 Chloride 111 H Carbon Dioxide 23 Anion Gap 8.0 BUN 11 Creatinine 0.59 L Est Cr Clr Drug Dosing 76.8 Est GFR ( Amer) 97.5 Est GFR (Non-Af Amer) 84.2 BUN/Creatinine Ratio 18.4 Glucose 97 Calcium 8.7 Troponin I < 0.015 PG Care Time/CCT Total # of Minutes Spent Total Time Spent with Patient: Total time spent is greater than 50% in coordination of care (as documented) at patient's floor/unit and/or counseling patient: (1) Chest pain Chest pain type: unspecified Qualified Code(s): R07.9 - Chest pain, unspecified
[2019-08-28] MEDS: AMLODIPINE BESYLATE 5 MG TAB PO SCH (20:49)
--- NOTE | 2019-08-28 21:53 | Ultrasound Report ---
US duplex renal artery CLINICAL HISTORY: Malignant hypertension. COMPARISON STUDY: None. FINDINGS: The right kidney measures 11.9 cm and the left kidney measures 11.5 cm. Bilateral renal vei ns are patent. No elevated velocities within the renal arteries to suggest renal artery stenosis. Pea k systolic velocity within the right renal artery was 113 cm/s and within the left renal artery was 1 12 cm/s. IMPRESSION: No evidence for renal artery stenosis. Electronically signed by: Markus Gongora M.D. 08/28/2019 9:52 PM
[2019-08-29 06:59] LABS: BUN Creatinine Ratio 17.6 (10-20); Calcium 8.9 mg/dl (8.5-10.1); Creatinine Clr Calc Pharmacy 58.7 ml/min; Est GFR (African American) 83.5; Potassium 3.7 mmol/L (3.5-5.1)
[2019-08-29] MEDS: AMLODIPINE BESYLATE 5 MG TAB PO SCH (07:49)
[2019-08-29] MEDS: FLECAINIDE ACETATE 100 MG TABLET PO SCH (07:49)
[2019-08-29] MEDS: MULTIVITAMIN TAB PO SCH (07:50)
[2019-08-29] MEDS: PANTOprazole 40 MG TAB PO SCH (07:50)
[2019-08-29] MEDS: METOPROLOL SUCC 50MG EXT REL TAB PO SCH (07:51)
[2019-08-29] MEDS ORDERED: lisinopriL 20 MG TAB PO SCH (09:00)
[2019-08-29] MEDS ORDERED: clonazePAM 0.5 MG TAB PO SCH (09:00)
[2019-08-29 11:33] VITALS: BP 161/71; TEMP 98.4; O2SAT 92
--- NOTE | 2019-08-29 14:23 | Discharge Summary ---
Date of Service date of admission - August 27, 2019 date of discharge - August 29, 2019 Admission HPI Per Admitting Provider 84yo female with history of PAF who presents with weakness starting at 0500 this am upon awakening. As she went through her morning she simply didn't feel well and felt weak. She checked her BP on her home machine and it "didn't register" because it was so high. She reports recent issues with her HTN (poor control). When the BP machine wouldn't register a blood pressure she immediately took her lisinopril. In fact this medication was recently increased to 40mg from 20mg about 1 month ago. Prior to the increase her morning systolic BPs were 170s. She also had a recent increase in her toprol xl from once daily to BID dosing. Since the toprol xl increase her overall control has finally been better. In addition to the weakness she felt lightheaded and dizzy. No vomiting. No dyspnea. Did have nausea in the middle of the night but none in the ER. She also had chest discomfort - substernal - that radiated through her chest to the back. This occurred about 5am. The pain has lasted all morning. Was relieved with SL nitro. Her pain was 8/10 on pain scale early this am. It is now down to a 3/10. The pain never traveled into the arms or hands but it DID travel to both shoulders. No pain in neck or jaw. No sweats. Principal Diagnosis hypertensive emergency Discharge Exam Constitutional well developed, well nourished and average body habitus; no acute distress and no altered mental status ENMT external ear and nose normal, oropharynx normal Neck trachea midline, no thyromegaly Respiratory no respiratory distress and does not use accessory muscles Auscultation: + crackles (left base); no wheezes Cardiovascular Rate/Rhythm: regular rate and regular rhythm Heart Sounds: normal S1 and normal S2; no murmur Vessels: posterior tibial pulses present, dorsalis pedis pulses present and radial pulses present (symmetric, 2+ b/l ); no JVD Extremities: no edema Gastrointestinal (Abdomen) normal bowel sounds, soft, nontender, no hepatosplenomegaly Neurologic moves all extremities; no focal motor deficits Psychiatric Orientation: alert and oriented x 3 Affect: + anxious affect Discharge Data Allergies Allergy/AdvReac Type Severity Reaction Status Date / Time metronidazole Allergy Intermediate HIVES Verified 08/27/19 08:03 naproxen Allergy Unknown HIVES Verified 08/27/19 08:03 Consultations Cardiology - Candido Holman MD Ordered Studies 1. CT angio chest dissection - IMPRESSION: 1. No evidence for aneurysm or dissection. 2. Moderate cardiomegaly. 3. Dependent bibasilar atelectasis. 2. US duplex renal artery - no evidence of renal artery stenosis. 3. echocardiogram - * EF 60-65% * no regional wall motion abnormalities * grade 1 diastolic dysfunction Hospital Course (1) Hypertensive emergency without congestive heart failure: Patient presented with severely elevated blood pressure (systolic BP of 220+) along with chest pain. Throughout her stay she continued with severe, labile HTN. She was placed on amlodipine and this was titrated to 10mg/day. Despite the amlodipine and her other home medications (metoprolol xl, lisinopril, etc) her BPs remained elevated. For that reason a renal artery doppler was checked and was negative for renal artery stenosis. Renin/aldosterone levels were dispatched. These were pending at time of hospital discharge. The patient endorsed multiple psychosocial stressors and admitted to increasing anxiety over the weeks leading up to this admission. Thus, her clonazepam was increased to 0.25mg BID (from 0.125mg BID). It is quite possible that anxiety was contributing to her HTN issues. Echo was checked this admission and was normal. On day of discharge, with a complex regimen of 4 different anti-hypertensives, her systolic BPs were finally in the ~160 range. Medication regimen at discharge for her HTN -- * lasix 40mg qam * amlodipine 5mg BID * lisinopril 20mg BID * metoprolol xl 150mg BID She will continue to check her BPs at home 1-2 times/day. If her BPs continue to remain high consider substituting HCTZ or aldactone for her lasix. (2) Chest pain: Likely 2nd to HTN emergency / severe HTN. No evidence of ACS or ischemia while hospitalized. Troponins were negative x 3. Echo failed to show wall motion abnormalities. She was seen by her primary boilermaker pipe fitter, Dr Holman. He agreed her pain was likely due to the HTN emergency and not ischemia. CTA chest dissection protocol this admission was NEGATIVE for dissection or other pathology. (3) Paroxysmal atrial fibrillation: Remained in NSR her entire stay. Cont metoprolol xl. Cont flecainide. Cont xarelto. (4) Anxiety: Increased her klonipin to 0.25mg BID while here. New prescription for such was given at discharge. (5) Asymptomatic bacteriuria: No symptoms of UTI during this admission. Was given rocephin in ER for dirty u/a. Would defer on additional antibiotics at this time. Urine culture ultimately showed contamination. (6) Thalassemia minor: Known diagnosis. This explains her chronic microcytosis. Would defer on additional work-up (iron studies, Hb electrophoresis). CBC and hemoglobin were stable. Total Time Total Time Spent Total Time Spent (In Minutes): 35 Total Time Includes: Examination of the Patient, Discharge Planning, Medication Reconciliation and Communication With Other Providers Discharge Plan Discharge Items Patient Disposition: Home - Self-Care Reason For Visit: chest pain Discharge Diagnosis: 1. chest pain - likely due to markedly elevated blood pressures - resolved. No evidence of heart attack, blood clots, aortic dissection, pneumonia, etc. 2. uncontrolled high blood pressure - ongoing issue but recently worse - slowly improving. 3. anxiety Goals: 1. rule out heart attack 2. control the blood pressure 3. improve the anxiety Activity: Resume your previous activity Non-emergency contact: Primary Care Provider and Plant Operator/Shift Supervisor Call non-emergency contact if: you have any medication questions, your symptoms worsen, your pain is not controlled, your pain is worsening, your pain is unusual for you, your pain is concerning for you and you have a fever Follow-up/Referrals: Olman Vigil MD [Primary Care Provider] - (Please, follow up with Dr. Vigil. *His nurse will contact you with appointment information. He will visit you at the [facility]. If you have any questions, call the office at [phone].) Diet: Heart Healthy Add Attending Provider Instructions: You were seen for markedly elevated blood pressure and chest pain/shoulder pain. Your systolic blood pressure (top number) was well over 200 by the time you came to the ER. We ruled out heart attack with 3 negative blood tests for your heart. Your echocardiogram showed good heart function. It was unchanged from your echo in 2015. A CAT scan of your lungs did not show aortic dissection or aneurysm which are conditions, if present, can cause chest pain. Your blood pressures were difficult to control during the stay prompting us to add another blood pressure medication called amlodipine. This was increased to 5mg twice a day. A renal artery doppler found that your arteries leading to the kidneys were normal (if someone has renal artery stenosis it can make it hard to control blood pressure). At this time we recommend - 1. split your lisinopril and take 20mg every AM and 20mg every evening 2. take amlodipine 5mg twice a day every day 3. continue your metoprolol and furosemide as previous 4. for anxiety INCREASE your clonazepam to 0.25mg twice a day new prescriptions sent to your pharmacy for the clonazepam and the amlodipine Continue to check your blood pressures once or twice a day. I would check your morning blood pressure 1 hour after taking your morning medications. Follow-up -- see Dr Vigil within 1 week Return to [facility] if -- * you have fevers over 100.5 degrees * you have worsening shortness of breath or severe chest pains * you have persistently high blood pressures over 200 (top number / systolic blood pressure) * any other concerns Pending Studies at Discharge: Yes Studies:: renin and aldosterone levels (hormones that, if out of balance, can contribute to [id number] blood pressure) Stand-Alone Forms: My [facility], Smoking Cessation Medications and DC Order Prescriptions: New amlodipine [Norvasc] 5 mg Tablet 5 mg PO BID Qty: 60 RF: 2 clonazepam 0.25 mg tablet,disintegrating 0.25 mg PO BID Qty: 60 RF: 0 Continued lorazepam 0.5 mg tablet 0.5 mg PO PM PRN (Reason: Insomnia) RF: 0 furosemide 40 mg tablet 40 mg PO DAILY RF: 0 potassium chloride 20 mEq tablet extended release 20 meq PO DAILY RF: 0 pantoprazole 20 mg tablet,delayed release (DR/EC) 20 mg PO QAM RF: 0 flecainide 100 mg tablet 100 mg PO Q12H Qty: 180 RF: 0 rivaroxaban 20 mg tablet 20 mg PO QDD RF: 0 metoprolol succinate [Toprol XL] 100 mg tablet extended release 24 hr 150 mg PO BID RF: 0 fluocinolone 0.01 % solution 1 applic topical BID PRN (Reason: Unknown) RF: 0 multivitamin Tablet 1 tab PO QAM RF: 0 acetaminophen [Tylenol Extra Strength] 500 mg Tablet 500 mg PO QID PRN (Reason: Pain) RF: 0 Changed lisinopril 40 mg tablet 20 mg PO BID Qty: 30 RF: 2 Discharge Orders: Discharge Order (Routine); Ordered 08/29/19 Ordered By: Caio Smith Admission Data Admit Date/Time: 08/28/19 16:26 Attending Provider: Caio Smith Admit Provider: Caio Smith Primary Care Provider: Olman Vigil Other Providers: Caio Smith ; Candido Holman Other Interventions: Discharge Summary Assessment (RN) Last Done: 08/29/19 14:20 DC Date/Time DO NOT enter until pt leaves facility: 08/29/19 15:32
[2019-08-29 14:51] VITALS: PULSE 60
[2019-09-05 16:19] LABS: Renin Activity 0.05 ng/mL/h (0.25-5.82)
== END 2019-08-29 15:32 | disposition home or self-care (01) | DRG 305 ==
LOC: ED 06:58 → 2S 06:58

== ENCOUNTER 2022-05-15 08:00 | Observation (INO) ==
[2022-05-15 08:45] LABS: Basophils # (auto) 0.06 K/uL (0-0.2); Basophils % (auto) 0.7 %; Eosinophils # (auto) 0.17 K/uL (0-0.50); Hematocrit (blood only) 41.4 % (34.1-44.9); Hemoglobin 12.9 g/dl (12.0-16.0); Immature Granulocytes # (auto) 0.03 K/uL (0.00-0.02); Immature Granulocytes % (auto) 0.4 %; Lymphocytes # (auto) 2.43 K/uL (1.2-3.4); Lymphocytes % (auto) 29.2 %; Mean Corpuscular Hemoglobin 21.3 pg (25.0-34.0); Mean Corpuscular Hgb Conc 31.2 g/dL (32.0-36.0); Mean Corpuscular Volume 68.3 fL (80.0-100.0); Monocytes % (auto) 7.2 %; Neutrophils # (auto) 5.03 K/uL (1.4-6.5); Neutrophils % (auto) 60.5 %; RDW Coefficient of Variation 16.2 % (11.5-14.5); RDW Standard Deviation 36.3 fL (36.4-46.3); Red Blood Count 6.06 M/uL (3.93-5.22); White Blood Count 8.32 K/ul (4.8-10.8)
[2022-05-15] MEDS ORDERED: GI COCKTAIL ED USE PO ONE (08:49)
--- NOTE | 2022-05-15 08:58 | Emergency Department Note ---
Impression & Plan Chest pain, Paroxysmal atrial fibrillation, Anticoagulant long-term use, Hypoxia ED Provider Note NAME: HENRY BOOKER AGE: 86 SEX: F : 1935 ARRIVES VIA: Ambulance INFORMANT: Patient ED PROVIDER(S): Emerson Bateman DO CHIEF COMPLAINT: Lightheaded HPI: Patient is an 86-year-old female with a past medical history of of hypertension, paroxysmal A. fib and chest pain who got up out of bed around 6:30-6:40 this morning. She went into the bathroom came back and started cleaning up around her room. She got lightheaded and felt her heart racing. She felt like she was in A. fib. She sat down and did not move that she was concerned and scared to get up move around other than taking her flecainide and clonazepam. She has been taking her apixaban and has not missed any doses. She also notes that she has a burning in the epigastric region coming up throughout her chest. She does have a history of reflux which is generally a burning sensation but notes that this was more diffuse in the little bit third or further throughout her chest but otherwise has no arm or jaw pain. She has no exertional symptoms. She notes that when she was in the A. fib she gets very worked up and is always very concerned. ROS: See above HPI for pertinent positives & negatives. A total of 10 systems reviewed and were otherwise negative. PAST MEDICAL HISTORY:See Below PAST SURGICAL HISTORY:See Below FAMILY HISTORY:See Below SOCIAL HISTORY:See Below HOME MEDICATIONS:See Below ALLERGIES:See Below VITALS:See Below PHYSICAL EXAMINATION: GENERAL: Sitting up in bed, alert, well appearing, well nourished, no distress, non-toxic EYE EXAM: normal conjunctiva. OROPHARYNX: no exudate, no erythema, lips, buccal mucosa, and tongue normal and mucous membranes are moist NECK: supple, no nuchal rigidity, no adenopathy, non-tender LUNGS: Clear to auscultation. Normal chest wall mechanics HEART: no murmurs, S1 normal and S2 normal ABDOMEN: abdomen soft, non-tender, normo-active bowel sounds, no masses, no rebound or guarding. UPPER EXTREMITIES: upper extremities are grossly normal. LOWER EXTREMITIES: No pitting edema. NEURO EXAM: Normal sensorium, cranial nerves II-XII grossly intact, normal speech, no gross weakness of arms, no gross weakness of legs. MEDICAL DECISION MAKING: Patient is an 86-year-old female with a past medical history of hypertension, paroxysmal A. fib, first-degree AV block, thalassemia anticoagulated who p resents the ER for feeling lightheaded and chest pressure. IV was established blood work was obtained and shows no significant leukocytosis or anemia. BMP along with LFTs was unremarkable. T bili slightly up at 1.4. Troponin was negative. Lipase is unremarkable. Heart score 4. EG shows no acute ischemia. No improvement with GI cocktail. Was given nitro chest pain resolved. X-ray was unremarkable. Patient did become slightly hypoxic at 86 to 89% transiently on room air 3 times and resolved shorty after. She is anticoagulated consequently did not pursue PE. Chest x-ray was clean. Will defer to the hospitalist for further evaluation. Triage Nursing notes reviewed. Limited review of prior medical records performed Vital Signs: reviewed and remarkable for HTN Differential diagnosis: Differential diagnoses includes but is not limited to acute coronary syndrome, myocardial infarction, pericarditis, pulmonary embolus, aortic dissection, pneumonia, pneumothorax, musculoskeletal, shingles, esophageal. ER treatment provided: See below Diagnostics interpreted by me: ECG: Sinus rhythm first-degree AV block rate of 63 Left axis No PVCs QTC 458 In comparison to EKG on 620 A. fib has now resolved Cardiac Monitoring: An order was placed for continuous cardiac monitoring. The monitor shows a rate of 70 with sinus rhythm. Laboratory studies: As stated above and show below. Imaging studies: Portable AP upright 1 view of the chest was unremarkable Consultation(s): Discussed with Dr. Zimmerman for further evaluation. Procedures: none Critical Care: None Past Med/Surg History Medical History Chest pain CHF (congestive heart failure) Paroxysmal atrial fibrillation Surgical History History of dilatation and curettage x 2 History of hysterectomy with BSO History of 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 Family History Father , age 60 Colorectal cancer Mother , age 98 Dementia Hypertension Stroke Sister , age 60s Mesothelioma Denies family history of Coronary heart disease AAA (abdominal aortic aneurysm) Social History Smoking Status: Never smoker Second Hand Exposure: No; Hx Alcohol Use: Yes Alcohol type: wine Hx Substance Use: No Preferred Language: Ghanaian Communication Ability: Effective Conservation Policy Analyst Required: No Beliefs That Will Affect Care: None marital status: Current Living Situation: Alone Current Living Situation Comment: lives at [facility] current occupational status: 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 Feels Safe at Home: Yes Assistive Devices: Glasses Allergies Allergies Allergy/AdvReac Type Severity Reaction Status Date / Time metronidazole Allergy Intermediate HIVES Verified 05/06/22 16:04 naproxen Allergy Unknown HIVES Verified 05/06/22 16:04 Home Meds Home Medications Medication Instructions Recorded Confirmed flecainide 100 mg tablet 100 mg PO Q12H #180 tab 07/28/19 05/06/22 furosemide 40 mg tablet 40 mg PO DAILY tab 07/28/19 05/06/22 lorazepam 0.5 mg tablet 0.5 mg PO PM PRN tab 07/28/19 05/06/22 pantoprazole 20 mg tablet,delayed 20 mg PO QAM 07/28/19 05/06/22 release potassium chloride 20 mEq 20 meq PO DAILY tab 07/28/19 05/06/22 tablet,extended release acetaminophen 500 mg tablet 500 mg PO QID PRN 08/27/19 05/15/22 (Tylenol Extra Strength) multivitamin 1 tab PO QAM 08/27/19 05/06/22 loperamide 2 mg capsule 2 mg PO DAILY PRN cap 06/12/20 05/06/22 simethicone 125 mg capsule (Gas 125 mg PO DAILY PRN 06/12/20 05/06/22 Relief (simethicone)) metoprolol succinate 100 mg 100 mg PO BID tab 06/16/21 05/06/22 tablet,extended release 24 hr (Toprol XL) Previous Rx's Medication Instructions Recorded amlodipine 5 mg tablet (Norvasc) 5 mg PO BID #60 tab 08/29/19 clonazepam 0.25 mg disintegrating 0.25 mg PO BID #60 tab 08/29/19 tablet lisinopril 40 mg tablet 20 mg PO BID #30 tab 08/29/19 apixaban 5 mg tablet (Eliquis) 5 mg PO BID #180 tab 07/21/21 Results & Data (ED) Vital Signs Vital Signs - 24 hr 05/15/22 08:02 05/15/22 08:13 05/15/22 08:35 Temperature 36.5 C Temperature Source Oral Pulse Rate 63 Pulse Rate [Apical] Pulse Rhythm [Apical] Respiratory Rate 16 18 Respiratory Effort / Characteristics Non-Labored Spontaneous Respiratory Depth Normal Blood Pressure 149/73 H Blood Pressure [Left Arm] Blood Pressure Mean 98 Blood Pressure Mean [Left Arm] Pulse Oximetry 96 95 94 Oxygen Delivery Method Room Air Room Air Room Air Sepsis Recent Fever Within 48 Hours No Sepsis New/Unexplained Change in Mental Status No Sepsis Action Taken by Nursing No Action Required 05/15/22 09:00 05/15/22 09:35 05/15/22 10:21 Temperature Temperature Source Pulse Rate Pulse Rate [Apical] 86 59 L Pulse Rhythm [Apical] Irregular Respiratory Rate 19 20 Respiratory Effort / Characteristics Non-Labored Spontaneous Non-Labored Spontaneous Respiratory Depth Normal Normal Blood Pressure Blood Pressure [Left Arm] 142/59 H 131/58 L Blood Pressure Mean Blood Pressure Mean [Left Arm] 86 82 Pulse Oximetry 96 95 89 L Oxygen Delivery Method Room Air Room Air Room Air Sepsis Recent Fever Within 48 Hours Sepsis New/Unexplained Change in Mental Status Sepsis Action Taken by Nursing Laboratory Data Result diagrams: 05/15/22 08:10 05/15/22 08:10 Lab Results 05/15/22 05/15/22 05/15/22 Range/Units 08:10 08:10 10:33 WBC 8.32 (4.8-10.8) K/ul RBC 6.06 H (3.93-5.22) M/uL Hgb 12.9 (12.0-16.0) g/dl Hct 41.4 (34.1-44.9) % MCV 68.3 L (80.0-100.0) fL MCH 21.3 L (25.0-34.0) pg MCHC 31.2 L (32.0-36.0) g/dL RDW Std Deviation 36.3 L (36.4-46.3) fL RDW Coeff of Mikayla 16.2 H (11.5-14.5) % Plt Count 219 (130-400) K/uL MPV 9.3 L (9.4-12.3) fL Immature Gran % (Auto) 0.4 % Neut % (Auto) 60.5 % Lymph % (Auto) 29.2 % Tate % (Auto) 7.2 % Eos % (Auto) 2.0 % Baso % (Auto) 0.7 % Neut # (Auto) 5.03 (1.4-6.5) K/uL Lymph # (Auto) 2.43 (1.2-3.4) K/uL Tate # (Auto) 0.60 (0.24-0.82) K/uL Eos # (Auto) 0.17 (0-0.50) K/uL Baso # (Auto) 0.06 (0-0.2) K/uL Immature Gran # (Auto) 0.03 H (0.00-0.02) K/uL Tear Drop Cells 1+ Sodium 137 (136-145) mmol/L Potassium 3.8 (3.5-5.1) mmol/L Chloride 102 (98-107) mmol/L Carbon Dioxide 26 (21-32) mmol/L Anion Gap 9 (3-11) BUN 16 (6-23) mg/dl Creatinine 0.62 (0.6-1.2) mg/dl Est Cr Clr Drug Dosing 37.5 ml/min Est GFR ( Amer) 94.6 ml/min Est GFR (Non-Af Amer) 81.6 ml/min BUN/Creatinine Ratio 25.8 H (10-20) Glucose 97 (70-99(Fasting)) mg/dl Calcium 9.6 (8.5-10.1) mg/dl Total Bilirubin 1.4 H (0.2-1.0) mg/dl AST 16 (13-39) U/L ALT 11 (7-52) U/L Alkaline Phosphatase 71 (34-104) U/L Troponin I High Sens 5.1 (0-14) pg/ml Total Protein 7.2 (6.0-8.3) gm/dl Albumin 4.5 (3.4-5.0) gm/dl Globulin 2.7 (2.5-4.0) gm/dl Albumin/Globulin Ratio 1.7 (0.9-2) Lipase 8 L (11-82) U/L SARS-CoV-2, RNA, NAAT NEGATIVE (NEGATIVE) Administered Medications Discontinued Medications Al Hydrox/Mg Hydrox/Simethicone (Gi Cocktail Ed Use) 1 dose PO ONE ONE Stop: 05/15/22 08:50 Last Admin: 05/15/22 09:04 Dose: 1 dose Documented by: [id number] Imaging Data Radiologist's Impression: Chest X-Ray 05/15/22 08:35 XR chest 1V portable CLINICAL HISTORY: Chest Pain. COMPARISON STUDY: 04/26/2022 TECHNIQUE: 1 view of the chest FINDINGS: Single frontal view of the chest demonstrates the heart to again be mildly enlarged. The lungs are clear of alveolar opacities. There is no evidence for pleural effusion. There is no evidence for vascular congestion. There is no acute osseous pathology. IMPRESSION: 1. Cardiomegaly with no acute chest disease. No significant interval change from the previous study. ACT 112: Negative or not required by law. Electronically signed by: Eliud Kang M.D. 05/15/2022 9:03 AM Discharge Plan Visit Data Chief Complaint: Dizziness Stated Complaint: LIGHTHEADED ED Provider: Emerson Bateman Discharge Problem: Chest pain, Paroxysmal atrial fibrillation, Anticoagulant long-term use, Hypoxia Forms Stand Alone Forms: My [facility] Prescriptions Prescriptions: No Action lorazepam 0.5 mg tablet 0.5 mg PO PM PRN (Reason: Insomnia) RF: 0 furosemide 40 mg tablet 40 mg PO DAILY RF: 0 potassium chloride 20 mEq tablet extended release 20 meq PO DAILY RF: 0 pantoprazole 20 mg tablet,delayed release (DR/EC) 20 mg PO QAM RF: 0 flecainide 100 mg tablet 100 mg PO Q12H Qty: 180 RF: 0 simethicone [Gas Relief (simethicone)] 125 mg capsule 125 mg PO DAILY PRNRF: 0 loperamide 2 mg capsule 2 mg PO DAILY PRNRF: 0 Eliquis 5 mg tablet 5 mg PO BID Qty: 180 RF: 3 multivitamin Tablet 1 tab PO QAM RF: 0 acetaminophen [Tylenol Extra Strength] 500 mg Tablet 500 mg PO QID PRN (Reason: Pain) RF: 0 amlodipine [Norvasc] 5 mg Tablet 5 mg PO BID Qty: 60 RF: 2 lisinopril 40 mg tablet 20 mg PO BID Qty: 30 RF: 2 clonazepam 0.25 mg tablet,disintegrating 0.25 mg PO BID Qty: 60 RF: 0 metoprolol succinate [Toprol XL] 100 mg tablet extended release 24 hr 100 mg PO BID RF: 0 Referrals Referrals: Olman Vigil MD [Primary Care Provider] - Discharge Problem: Chest pain Qualifiers: Chest pain type: unspecified Qualified Code(s): R07.9 - Chest pain, unspecified
--- NOTE | 2022-05-15 09:04 | XRay Report ---
XR chest 1V portable CLINICAL HISTORY: Chest Pain. COMPARISON STUDY: 04/26/2022 TECHNIQUE: 1 view of the chest FINDINGS: Single frontal view of the chest demonstrates the heart to again be mildly enlarged. The lungs are cl ear of alveolar opacities. There is no evidence for pleural effusion. There is no evidence for vascul ar congestion. There is no acute osseous pathology. IMPRESSION: 1. Cardiomegaly with no acute chest disease. No significant interval change from the previous study. ACT 112: Negative or not required by law. Electronically signed by: Eliud Kang M.D. 05/15/2022 9:03 AM
[2022-05-15 09:11] LABS: Troponin I High Sensitivity 5.1 pg/ml (0-14)
[2022-05-15 09:23] LABS: Albumin Globulin Ratio 1.7 (0.9-2); Albumin Level 4.5 gm/dl (3.4-5.0); BUN Creatinine Ratio 25.8 (10-20); Bilirubin,Total 1.4 mg/dl (0.2-1.0); Calcium 9.6 mg/dl (8.5-10.1); Creatinine Clr Calc Pharmacy 37.5 ml/min; Est GFR (African American) 94.6 ml/min; Est GFR (Non-African American) 81.6 ml/min; Globulin 2.7 gm/dl (2.5-4.0); Potassium 3.8 mmol/L (3.5-5.1); Total Protein 7.2 gm/dl (6.0-8.3)
[2022-05-15] MEDS ORDERED: NITROGLYCERIN SL 0.4 MG/TAB TAB SL PRN (09:25)
[2022-05-15 09:32] LABS: Mean Platelet Volume 9.3 fL (9.4-12.3); Platelet Count 219 K/uL (130-400); Tear Drop Cells 1+
--- NOTE | 2022-05-15 10:22 | History & Physical Report ---
Date of Service May 15, 2022 Assessment & Plan (1) Chest pain: Plan: - Burning sensation without radiation to back/arms/jaw. Presentation is more consistent with reflxu disease than ACS. Negative trop, Patient in NSR with HR < 100. - Trend troponin, continue PPI - AM labs. (2) Paroxysmal atrial fibrillation: Plan: - NSR here. - Continue flecainide, metoprolol, Eliquis. No missed doses. (3) Hypertension: Plan: - Continue lisinopril 20 mg daily, amlodipine 5 mg daily, as well as metoprolol as above. (4) (HFpEF) heart failure with preserved ejection fraction: Plan: - No evidence of acute exacerbation, pt's b/l edema is at her baseline. - Continue Lasix w/ K supplement. (5) GERD (gastroesophageal reflux disease): Plan: - Continue pantoprazole. (6) Arthritis: Plan: - Continue Tylenol 500 mg QID. (7) Anxiety: Plan: - Continue Klonopin 0.25 mg BID. - Lorazepam 0.5 mg hs prn. Plan: - Obs on med/tele. - SCDs, Eliquis for VTE ppx. - Full Code. History of Present Illness Chief Complaint: lightheadedness, chest pain since this AM Primary Care Provider: Olman Vigil MD Lizette Lynch is an 86-year-old female with past medical history significant for paroxysmal A. fib oon Eliquis, CHF, hypertension, GERD, arthritis, and anxiety who presents today with lightheadedness and burning in her chest this morning. She states she woke up around 6:30 AM and was making her bed when suddenly she felt lightheaded felt like her heart was beating faster than it typically does. She called EMS transferred to ED for further evaluation. While waiting for them, she had a burning sensation in her chest that radiated up to her throat and shoulders. In ED, she is hemodynamically stable, at times has a slower heart rate which she states is normal for her on her medications. Mildly hypertensive. Labs largely unremarkable, MCV and MCHC low, no toxemia. No electrolyte abnormalities. Initial troponin 5.1. EKG showed normal sinus rhythm without any ST segment or T wave changes. Chest x-ray showed cardiomegaly without acute disease process. ED course: GI cocktail, nitroglycerin 0.4 mg tab Patient will be observed overnight to trend troponin. Allergies Allergy/AdvReac Type Severity Reaction Status Date / Time metronidazole Allergy Intermediate HIVES Verified 05/06/22 16:04 naproxen Allergy Unknown HIVES Verified 05/06/22 16:04 Home Medications Medication Instructions Recorded Confirmed Type flecainide 100 mg tablet 100 mg PO Q12H #180 tab 07/28/19 05/06/22 History furosemide 40 mg tablet 40 mg PO DAILY tab 07/28/19 05/06/22 History lorazepam 0.5 mg tablet 0.5 mg PO PM PRN tab 07/28/19 05/06/22 History pantoprazole 20 mg tablet,delayed 20 mg PO QAM 07/28/19 05/06/22 History release potassium chloride 20 mEq 20 meq PO DAILY tab 07/28/19 05/06/22 History tablet,extended release acetaminophen 500 mg tablet 500 mg PO QID PRN 08/27/19 05/15/22 History (Tylenol Extra Strength) multivitamin 1 tab PO QAM 08/27/19 05/06/22 History amlodipine 5 mg tablet (Norvasc) 5 mg PO BID #60 tab 08/29/19 05/06/22 Rx clonazepam 0.25 mg disintegrating 0.25 mg PO BID #60 tab 08/29/19 05/06/22 Rx tablet lisinopril 40 mg tablet 20 mg PO BID #30 tab 08/29/19 05/15/22 Rx loperamide 2 mg capsule 2 mg PO DAILY PRN cap 06/12/20 05/06/22 History simethicone 125 mg capsule (Gas 125 mg PO DAILY PRN 06/12/20 05/06/22 History Relief (simethicone)) metoprolol succinate 100 mg 100 mg PO BID tab 06/16/21 05/06/22 History tablet,extended release 24 hr (Toprol XL) apixaban 5 mg tablet (Eliquis) 5 mg PO BID #180 tab 07/21/21 05/06/22 Rx Past Med/Surg History Medical History Chest pain CHF (congestive heart failure) Paroxysmal atrial fibrillation Surgical History History of dilatation and curettage x 2 History of hysterectomy with BSO History of 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 Family History Father , age 60 Colorectal cancer Mother , age 98 Dementia Hypertension Stroke Sister , age 60s Mesothelioma Denies family history of Coronary heart disease AAA (abdominal aortic aneurysm) Social History Smoking Status: Never smoker Second Hand Exposure: No; Hx Alcohol Use: Yes Alcohol type: wine Hx Substance Use: No Preferred Language: Belarusian Communication Ability: Effective Nurse College Required: No Beliefs That Will Affect Care: None marital status: Current Living Situation: Alone Current Living Situation Comment: lives at [facility] current occupational status: 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 Feels Safe at Home: Yes Assistive Devices: Glasses Review of Systems Review of Systems: Constitutional: lightheadedness this AM; No fever/chills, weakness, fatigue, myalgias, anorexia, night sweats Eyes: No diplopia, no worsening or blurred vision ENT: normal hearing, no trouble swallowing Respiratory: No cough, sputum, dyspnea at rest or on exertion Cardiovascular: burning chest pain this AM; no chest pressure, tightness or palpitations Abdomen: No pain, nausea, vomiting, diarrhea or constipation : Denies dysuria, hematuria, increased urgency/frequency, urinary retention Musculoskeletal: No joint pain, calf pain, swelling Neurologic: No weakness, numbness/tingling, or balance problems Psychiatric: No anxiety or depression Skin: No rash or itch Physical Exam Physical Exam: General: awake, alert, no apparent distress Head: Normocephalic, atraumatic ENT: PERRL, EOMI, no pharyngeal exudate, mucous membranes moist Chest: Clear to auscultation, on room air, no adventitious breath sounds Cardiac: Regular rate and rhythm, no murmur, no JVD, normal peripheral pulses, good capillary refill Abdominal: NABS x 4 quadrants, soft, nontender to palpation, no rebound, guarding or tenderness Extremities: Normal inspection, no peripheral edema or erythema, calfs nontender to palpation Psych: Normal mood and affect Neuro: AAO x 3, strength intact bilaterally and rated 5/5, no motor deficits, speech is clear, no peripheral sensory deficits Skin: no rash or erythema Results & Data Results & Data ([facility]) Vital Signs (Past 12 Hours) Vital Signs Temp Pulse Pulse Resp BP BP Pulse Ox 05/15/22 09:35 59 L 20 131/58 L 95 05/15/22 09:00 86 19 142/59 H 96 05/15/22 08:35 18 94 05/15/22 08:13 95 05/15/22 08:02 36.5 C 63 16 149/73 H 96 Laboratory Results Abnormal lab results 05/15/22 05/15/22 Range/Units 08:10 08:10 RBC 6.06 H (3.93-5.22) M/uL MCV 68.3 L (80.0-100.0) fL MCH 21.3 L (25.0-34.0) pg MCHC 31.2 L (32.0-36.0) g/dL RDW Std Deviation 36.3 L (36.4-46.3) fL RDW Coeff of Mikayla 16.2 H (11.5-14.5) % MPV 9.3 L (9.4-12.3) fL Immature Gran # (Auto) 0.03 H (0.00-0.02) K/uL BUN/Creatinine Ratio 25.8 H (10-20) Total Bilirubin 1.4 H (0.2-1.0) mg/dl Lipase 8 L (11-82) U/L Diagnostic Findings Chest X-Ray 05/15/22 08:35 XR chest 1V portable CLINICAL HISTORY: Chest Pain. COMPARISON STUDY: 04/26/2022 TECHNIQUE: 1 view of the chest FINDINGS: Single frontal view of the chest demonstrates the heart to again be mildly enlarged. The lungs are clear of alveolar opacities. There is no evidence for pleural effusion. There is no evidence for vascular congestion. There is no acute osseous pathology. IMPRESSION: 1. Cardiomegaly with no acute chest disease. No significant interval change from the previous study. ACT 112: Negative or not required by law. Electronically signed by: Eliud Kang M.D. 05/15/2022 9:03 AM ECG Additional Comments: Sinus rhythm with 1st degree A-V block Left axis deviation Possible Anterior infarct , age undetermined Abnormal ECG When compared with ECG of 26-APR-2022 08:37, Sinus rhythm has replaced Atrial fibrillation Vent. rate has decreased BY 37 BPM Incomplete right bundle branch block is no longer Present. Code Status & VTE Plan Code Status Full Code. Supervising Physician Co-Signing Physician Notes Patient seen and examined with IRAIDA, agree with her note above. This is an 86-year-old female with past medical history of paroxysmal atrial fibrillation on multiple medications for rhythm control along with Eliquis. Patient was complaining of some palpitations along with a burning chest pain as described above. She did also have a period of lightheadedness. At the time of our evaluation, patient's vital signs are stable and she remains in normal sinus rhythm with heart rate in the 70s. Patient denies any chest pain at this time. Plan to place patient in monitored observation overnight, rule out ischemia with troponins. Check magnesium, fasting lipids, and other routine lab work. Repeat EKG in the morning. Continue medications as per outpatient basis including anticoagulation. If no significant findings, suspect patient will be able to be discharged safely on 05/16. PG Care Time/CCT Total # of Minutes Spent Total Time Spent with Patient: Total time spent is greater than 50% in coordination of care (as documented) at patient's floor/unit and/or counseling patient: Coding Level of Care Code INT OBSERVATION CARE 50M LVL 2 Diagnoses Chest pain R07.9 Chest pain type: unspecified Paroxysmal atrial fibrillation I48.0 Arthritis M19.90 Anxiety F41.9 Hypertension I10 GERD (gastroesophageal reflux disease) K21.9 (HFpEF) heart failure with preserved ejection fraction I50.30 (1) Chest pain Chest pain type: unspecified Qualified Code(s): R07.9 - Chest pain, unspecified
[2022-05-15] MEDS ORDERED: FUROSEMIDE 40 MG TAB PO ONE (11:08)
[2022-05-15] MEDS ORDERED: PANTOprazole 40 MG TAB PO STA (11:08)
[2022-05-15] MEDS ORDERED: POTASSIUM CHLORIDE CRTAB 20 MEQ TABCR PO STA (11:08)
[2022-05-15] MEDS ORDERED: ACETAMINOPHEN 500 MG TAB PO STA (11:08)
[2022-05-15] MEDS ORDERED: LORazepam 0.5 MG TAB PO PRN (12:02)
--- NOTE | 2022-05-15 12:28 | Electrocardiogram Report ---
Test Reason : Blood Pressure : / mmHG Vent. Rate : 063 BPM Atrial Rate : 063 BPM P-R Int : 240 ms QRS Dur : 100 ms QT Int : 448 ms P-R-T Axes : 088 -40 036 degrees QTc Int : 458 ms Poor data quality, interpretation may be adversely affected Sinus rhythm with 1st degree A-V block Left axis deviation Poor R wave progression, consider anterior [place] vs. lead placement vs. LVH Abnormal ECG When compared with ECG of 26-APR-2022 08:37, Sinus rhythm has replaced Atrial fibrillation Vent. rate has decreased BY 37 BPM Incomplete right bundle branch block is no longer Present Confirmed by Ryan Jackson ([id number]) on 05/15/2022 12:28:02 PM Referred By: KATH Confirmed By:Oneil Jackson
[2022-05-15] MEDS: FLECAINIDE ACETATE 100 MG TABLET PO SCH ×3 (12:54→21:13)
[2022-05-15] MEDS ORDERED: LORazepam 0.5 MG TAB PO STA (16:33)
[2022-05-15] MEDS ORDERED: CALCIUM CARBONATE 500 MG CHEWABLE TAB PO STA (20:22)
[2022-05-15] MEDS: amLODIPine BESYLATE 5 MG TAB PO SCH (20:28)
[2022-05-15] MEDS: METOPROLOL SUCC 50MG EXT REL TAB PO SCH (20:29)
[2022-05-15] MEDS: lisinopril 20 MG TAB PO SCH (20:29)
[2022-05-15] MEDS: APIXABAN 5 MG TABLET PO SCH (20:29)
[2022-05-15] MEDS: ACETAMINOPHEN 500 MG TAB PO PRN (21:13)
[2022-05-15] MEDS: clonazePAM 0.25 MG TAB PO SCH (21:14)
[2022-05-16] MEDS: ACETAMINOPHEN 500 MG TAB PO PRN (05:04)
[2022-05-16 05:39] LABS: Basophils # (auto) 0.06 K/uL (0-0.2); Basophils % (auto) 0.7 %; Eosinophils # (auto) 0.19 K/uL (0-0.50); Eosinophils % (auto) 2.3 %; Hematocrit (blood only) 40.2 % (34.1-44.9); Hemoglobin 12.4 g/dl (12.0-16.0); Immature Granulocytes # (auto) 0.02 K/uL (0.00-0.02); Immature Granulocytes % (auto) 0.2 %; Lymphocytes # (auto) 2.35 K/uL (1.2-3.4); Lymphocytes % (auto) 28.2 %; Mean Corpuscular Hemoglobin 20.8 pg (25.0-34.0); Mean Corpuscular Hgb Conc 30.8 g/dL (32.0-36.0); Mean Corpuscular Volume 67.4 fL (80.0-100.0); Monocytes # (auto) 0.77 K/uL (0.24-0.82); Monocytes % (auto) 9.2 %; Neutrophils # (auto) 4.95 K/uL (1.4-6.5); Neutrophils % (auto) 59.4 %; RDW Coefficient of Variation 15.9 % (11.5-14.5); RDW Standard Deviation 35.1 fL (36.4-46.3); Red Blood Count 5.96 M/uL (3.93-5.22); White Blood Count 8.34 K/ul (4.8-10.8)
[2022-05-16 05:47] LABS: Mean Platelet Volume 9.5 fL (9.4-12.3); Platelet Count 219 K/uL (130-400)
[2022-05-16 05:58] LABS: BUN Creatinine Ratio 27.5 (10-20); Calcium 9.6 mg/dl (8.5-10.1); Chol HDL Ratio 2.4 (0-5); Creatinine Clr Calc Pharmacy 62.2 ml/min; Est GFR (African American) 91.4 ml/min; Est GFR (Non-African American) 78.8 ml/min; Potassium 4.3 mmol/L (3.5-5.1)
[2022-05-16 06:19] LABS: Target Cells 1+; Tear Drop Cells 2+
[2022-05-16] MEDS: lisinopril 20 MG TAB PO SCH (08:36)
[2022-05-16] MEDS: APIXABAN 5 MG TABLET PO SCH (08:37)
[2022-05-16] MEDS: amLODIPine BESYLATE 5 MG TAB PO SCH (08:37)
[2022-05-16] MEDS: METOPROLOL SUCC 50MG EXT REL TAB PO SCH (08:39)
[2022-05-16] MEDS: clonazePAM 0.25 MG TAB PO SCH (08:43)
[2022-05-16] MEDS ORDERED: PANTOprazole 40 MG TAB PO SCH (09:00)
[2022-05-16] MEDS ORDERED: FUROSEMIDE 40 MG TAB PO SCH (09:00)
[2022-05-16] MEDS ORDERED: POTASSIUM CHLORIDE CRTAB 20 MEQ TABCR PO SCH (09:00)
[2022-05-16] MEDS ORDERED: MULTIVITAMIN TAB PO SCH (09:00)
[2022-05-16] MEDS: FLECAINIDE ACETATE 100 MG TABLET PO SCH (09:58)
--- NOTE | 2022-05-16 13:36 | Discharge Summary ---
Date of Service May 16, 2022 Admission HPI Per Admitting Provider Lizette Lynch is an 86-year-old female with past medical history significant for paroxysmal A. fib oon Eliquis, CHF, hypertension, GERD, arthritis, and anxiety who presents today with lightheadedness and burning in her chest this morning. She states she woke up around 6:30 AM and was making her bed when suddenly she felt lightheaded felt like her heart was beating faster than it typically does. She called EMS transferred to ED for further evaluation. While waiting for them, she had a burning sensation in her chest that radiated up to her throat and shoulders. In ED, she is hemodynamically stable, at times has a slower heart rate which she states is normal for her on her medications. Mildly hypertensive. Labs largely unremarkable, MCV and MCHC low, no toxemia. No electrolyte abnormalities. Initial troponin 5.1. EKG showed normal sinus rhythm without any ST segment or T wave changes. Chest x-ray showed cardiomegaly without acute disease process. ED course: GI cocktail, nitroglycerin 0.4 mg tab Patient will be observed overnight to trend troponin. Admission Exam Per Admitting Provider The patient is awake, alert and oriented 3, well developed and well nourished, normocephalic and atraumatic, lying in bed and in no acute distress. HEENT--PERRL, EOMI, mucous membranes and oropharynx mildly dry Neck--supple. No JVD. No bruits. Thyroid normal, trachea midline, no adenopathy. Heart--normal S1 and S2. No murmurs, rubs or gallops. Lungs--clear bilaterally, no respiratory distress, no accessory muscle use. Abdomen--normal bowel sounds and soft. Mild epigastric and left sided abdominal pain Extremities--no cyanosis or clubbing. No edema. Dermatologic--normal skin turgor, normal color, no abnormal lymph nodes, no rash. Neurologic--cranial nerves II through XII grossly intact. Rheumatologic--normal range of motion. Psychiatric--normal affect. Principal Diagnosis Reflux Discharge Data Allergies Allergy/AdvReac Type Severity Reaction Status Date / Time metronidazole Allergy Intermediate HIVES Verified 05/06/22 16:04 naproxen Allergy Unknown HIVES Verified 05/06/22 16:04 Consultations 05/15/22 10:06 ED Decision to Admit Stat Hospital Course (1) Chest pain: - Most Likely due to reflux. Now resolved Patient adviced to take her home protonix BID instead of daily (2) Paroxysmal atrial fibrillation: - NSR here. - Continue flecainide, metoprolol, Eliquis. No missed doses. (3) Hypertension: - Continue lisinopril 20 mg daily, amlodipine 5 mg daily, as well as metoprolol as above. (4) (HFpEF) heart failure with preserved ejection fraction: - No evidence of acute exacerbation, pt's b/l edema is at her baseline. - Continue Lasix w/ K supplement. (5) GERD (gastroesophageal reflux disease): - Continue pantoprazole. (6) Arthritis: - Continue Tylenol 500 mg QID. (7) Anxiety: - Continue Klonopin 0.25 mg BID. - Lorazepam 0.5 mg hs prn. - Obs on med/tele. - SCDs, Eliquis for VTE ppx. - Full Code. Total Time Total Time Spent Total Time Spent (In Minutes): 35 Discharge Plan Discharge Items Patient Disposition: Home - Self-Care Reason For Visit: PALPITATIONS/CHEST PAIN Discharge Diagnosis: Reflux Activity: Resume your previous activity Non-emergency contact: Primary Care Provider Call non-emergency contact if: you have any medication questions Follow-up/Referrals: Olman Vigil MD [Primary Care Provider] - Diet: Regular Addtl Attending Provider Instructions: please make appointment to follow up with your regular PCP Pending Studies at Discharge: No Stand-Alone Forms: My [employer], Smoking Cessation Medications and DC Order Prescriptions: New pantoprazole 20 mg tablet,delayed release (DR/EC) 20 mg PO BID 30 Days Qty: 60 RF: 0 Continued lorazepam 0.5 mg tablet 0.5 mg PO PM PRN (Reason: Insomnia) RF: 0 furosemide 40 mg tablet 40 mg PO DAILY RF: 0 potassium chloride 20 mEq tablet extended release 20 meq PO DAILY RF: 0 flecainide 100 mg tablet 100 mg PO Q12H Qty: 180 RF: 0 simethicone [Gas Relief (simethicone)] 125 mg capsule 125 mg PO DAILY PRN (Reason: Gi Upset) RF: 0 loperamide 2 mg capsule 2 mg PO DAILY PRN (Reason: Gi Upset) RF: 0 Eliquis 5 mg tablet 5 mg PO BID Qty: 180 RF: 3 multivitamin Tablet 1 tab PO QAM RF: 0 acetaminophen [Tylenol Extra Strength] 500 mg Tablet 500 mg PO QID PRN (Reason: Pain) RF: 0 amlodipine [Norvasc] 5 mg Tablet 5 mg PO BID Qty: 60 RF: 2 lisinopril 40 mg tablet 20 mg PO BID Qty: 30 RF: 2 clonazepam 0.25 mg tablet,disintegrating 0.25 mg PO BID Qty: 60 RF: 0 metoprolol succinate [Toprol XL] 100 mg tablet extended release 24 hr 100 mg PO BID RF: 0 Discontinued pantoprazole 20 mg tablet,delayed release (DR/EC) 20 mg PO QAM RF: 0 Discharge Orders: Discharge Order (Routine); Ordered 05/16/22 Ordered By: Suha Arteaga/Other Patient Handouts: Understanding Deep Vein Thrombosis, DVT Complications, ED Chest Pain, Uncertain Cause Admission Data Admit Date/Time: 05/15/22 10:47 Attending Provider: Suha Small Admit Provider: Jason Zimmerman Primary Care Provider: Olman Vigil Other Providers: Jason Zimmerman Other Interventions: Discharge Summary Assessment (RN) Last Done: 05/16/22 10:23 Coding Level of Care Code D/C DAY MANAGEMENT >30 MINS Diagnoses Chest pain R07.9 Chest pain type: unspecified Paroxysmal atrial fibrillation I48.0 Hypertension I10 (HFpEF) heart failure with preserved ejection fraction I50.30 GERD (gastroesophageal reflux disease) K21.9 Arthritis M19.90 Anxiety F41.9 Time Spent (min) 35
== END 2022-05-16 12:35 | disposition home or self-care (01) ==
LOC: ED 08:00 → 1E 08:00 → SUATTDRO 10:47 → 1E 11:43 → 2E 05-16 06:21

== ENCOUNTER 2023-04-22 22:14 | Observation (INO) ==
[2023-04-22] MEDS ORDERED: MoRPHine SULFATE 2 MG/ML CARP IV STA (22:34)
[2023-04-22] MEDS ORDERED: ASPIRIN CHEW 324 MG PO STA (22:34)
--- NOTE | 2023-04-22 22:38 | Emergency Department Note ---
Impression & Plan Chest pain ED Provider Note HISTORY OF PRESENT ILLNESS: Patient is an 87-year-old female presenting with chest pain. Patient reports that earlier this evening she developed substernal chest pain that radiates into her left shoulder. Reports that she thought it was just her normal reflux symptoms and took 4 Tums without any relief of symptoms. However, the pain persisted and got progressively worse and she decided to call 911. EMS gave the patient 324 mg of aspirin and 0.4 mg of nitro in route. On arrival to the ER, the patient is still complaining of substernal chest pain. Describes the pain as a burning sensation. Denies any nausea, vomiting or shortness of breath. She denies any history of cardiac stents. She is on Eliquis daily for history of A-fib. Denies any DVT or PE history. ROS: as above PHYSICAL EXAM: Constitutional: Patient appears in no acute distress. HENT: Head: Normocephalic and atraumatic. Eyes: EOMI, PERRL Mouth/Throat: Mucous membranes moist. Neck: Trachea midline. Neck supple. Cardiovascular: RRR, No murmurs, rubs or gallops. Intact distal pulses. Pulmonary/Chest: No respiratory distress. Breath sounds clear and equal bilaterally. No wheezes or rales. Abdominal: BS +. Abdomen soft, no tenderness, rebound or guarding. Musculoskeletal: No edema, tenderness or deformity noted. Skin: Warm and dry. No rash, erythema, pallor or cyanosis Psychiatric: Appropriate mood and affect for situation. Neurological: Alert and keenly responsive. CN II-XII grossly intact, moving all extremities equally and fully. MDM: - Vitals signs stable. - History obtained via patient. Patient presents with substernal chest burning. Patient reports symptoms started earlier this evening. Describes the chest pain as a burning sensation that radiates into her left shoulder. Thought it was reflux and took multiple doses of Tums without any relief of symptoms. Patient reports she is never had reflux symptoms this intense before, so she called 911. Denies any history of cardiac stents. Denies any DVT or PE history. She is on Eliquis. - Chronic conditions affecting care: CHF; Afib - Differential diagnoses include, but are not limited to: Acute coronary syndrome; pulmonary embolism; dissection; tension pneumothorax; esophageal rupture; pneumonia - Order placed for continuous cardiac monitoring. At this time, monitor showed rate of 65 bpm with normal sinus rhythm, per my interpretation. - External medical records reviewed. EMS run sheet reviewed. Patient was vitally stable in route. Patient was given 324 mg of aspirin and 0.4 mg of n itro spray prehospital. - EKG reviewed by myself showed normal sinus rhythm. Rate 59 bpm. QTc 461. No acute ischemic changes. - Laboratory workup interpreted by myself showed normal WBC; stable rhett ctrolytes; normal troponin - CXR negative for pneumonia, per my interpretation. - HEART score 4 (+1 history; +0 EKG; +2 age; +1 risk factors; +0 troponin), resulting in a moderate risk. - Patient has never had a stress test noted on chart review before. Her last cardiology visit note from July 2022 reports that she had an echocardiogram and stress echo performed and 2015. She had a treadmill nuclear study on 09/26/2015 which was negative for ischemia. - Patient given 2 mg IV morphine and 4 mg IV zofran for continued chest pain in ER. - Discussion was had with social media content specialist about patient's case and need for admission. - Hospitalist, Dr. Dukes, consulted for admission. - [facility] ASSESSMENT AND PLAN: Diagnosis: chest pain Plan: admit Past Med/Surg History Medical History Chest pain CHF (congestive heart failure) Paroxysmal atrial fibrillation Surgical History History of dilatation and curettage x 2 History of hysterectomy with BSO History of 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 Family History Father , age 60 Colorectal cancer Mother , age 98 Dementia Hypertension Stroke Sister , age 60s Mesothelioma Denies family history of Coronary heart disease AAA (abdominal aortic aneurysm) Social History Smoking Status: Never smoker Second Hand Exposure: No; Do You Dip or Chew Tobacco: No; Hx Alcohol Use: No Hx Substance Use: No Preferred Language: Upper Sorbian Communication Ability: Effective Jeep Driver Required: No Beliefs That Will Affect Care: None marital status: Unknown Current Living Situation: Personal Care Facility Current Living Situation Comment: [facility] current occupational status: 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 Feels Safe at Home: Yes Assistive Devices: Cane Allergies Allergies Allergy/AdvReac Type Severity Reaction Status Date / Time metronidazole Allergy Intermediate HIVES Verified 07/29/22 13:15 naproxen Allergy Unknown HIVES Verified 07/29/22 13:15 Home Meds Home Medications Medication Instructions Recorded Confirmed flecainide 100 mg tablet 100 mg PO Q12H #180 tabs 07/28/19 07/29/22 furosemide 40 mg tablet 40 mg PO DAILY 07/28/19 07/29/22 lorazepam 0.5 mg tablet 0.5 mg PO PM PRN Insomnia 07/28/19 07/29/22 potassium chloride 20 mEq 20 meq PO DAILY 07/28/19 07/29/22 tablet,extended release acetaminophen 500 mg tablet 500 mg PO QID PRN Pain 08/27/19 07/29/22 (Tylenol Extra Strength) multivitamin 1 tab PO QAM 08/27/19 07/29/22 loperamide 2 mg capsule 2 mg PO DAILY PRN Gi Upset 06/12/20 07/29/22 simethicone 125 mg capsule (Gas 125 mg PO DAILY PRN Gi Upset 06/12/20 07/29/22 Relief (simethicone)) metoprolol succinate 100 mg 100 mg PO BID 06/16/21 07/29/22 tablet,extended release 24 hr (Toprol XL) Previous Rx's Medication Instructions Recorded amlodipine 5 mg tablet (Norvasc) 5 mg PO BID #60 tabs 08/29/19 clonazepam 0.25 mg disintegrating 0.25 mg PO BID #60 tabs 08/29/19 tablet lisinopril 40 mg tablet 20 mg PO BID #30 tabs 08/29/19 apixaban 5 mg tablet (Eliquis) 5 mg PO BID #180 tabs 07/21/21 Results & Data (ED) Vital Signs Vital Signs - 24 hr 04/22/23 22:21 04/22/23 22:21 04/22/23 22:52 Temperature 36.4 C L 36.4 C L Temperature Source Oral Oral Pulse Rate 57 L 61 Pulse Rate [Apical] 57 L Pulse Rate from SpO2 Sensor Respiratory Rate 17 17 17 Respiratory Effort / Characteristics Non-Labored Spontaneous Non-Labored Spontaneous Respiratory Depth Normal Normal Blood Pressure 130/61 Blood Pressure [Right Arm] 130/61 Blood Pressure Mean 84 Blood Pressure Mean [Right Arm] 84 Blood Pressure Position Semi-fowlers Blood Pressure Position [Right Arm] Semi-fowlers Pulse Oximetry 93 93 93 Oxygen Delivery Method Room Air Room Air Room Air Sepsis Recent Fever Within 48 Hours No Sepsis New/Unexplained Change in Mental Status N/A Sepsis Action Taken by Nursing No Action Required 04/22/23 22:30 Temperature Temperature Source Pulse Rate 120 H Pulse Rate [Apical] Pulse Rate from SpO2 Sensor 58 L Respiratory Rate 24 Respiratory Effort / Characteristics Respiratory Depth Blood Pressure Blood Pressure [Right Arm] Blood Pressure Mean Blood Pressure Mean [Right Arm] Blood Pressure Position Blood Pressure Position [Right Arm] Pulse Oximetry 94 Oxygen Delivery Method Sepsis Recent Fever Within 48 Hours Sepsis New/Unexplained Change in Mental Status Sepsis Action Taken by Nursing Laboratory Data 04/22/23 22:20 04/22/23 22:20 Lab Results 04/22/23 04/22/23 Range/Units 22:20 22:20 WBC 9.80 (4.8-10.8) K/ul RBC 5.84 H (4.20-5.40) M/uL Hgb 12.8 (12.0-16.0) g/dl Hct 39.7 (37.0-47.0) % MCV 68.0 L (80.0-100.0) fL MCH 21.9 L (25.0-34.0) pg MCHC 32.2 (32.0-36.0) g/dL RDW Std Deviation 38.4 (36.4-46.3) fL RDW Coeff of Mikayla 17.2 H (11.5-14.5) % Plt Count 220 (130-400) K/uL MPV 9.7 (9.4-12.4) fL Immature Gran % (Auto) 0.3 % Neut % (Auto) 43.5 % Lymph % (Auto) 42.9 % [place] % (Auto) 9.6 % Eos % (Auto) 2.9 % Baso % (Auto) 0.8 % Neut # (Auto) 4.27 (1.40-6.50) K/uL Lymph # (Auto) 4.20 H (1.2-3.4) K/uL [place] # (Auto) 0.94 H (0.11-0.59) K/uL Eos # (Auto) 0.28 (0-0.50) K/uL Baso # (Auto) 0.08 (0-0.2) K/uL Immature Gran # (Auto) 0.03 (0.01-0.20) K/uL Absolute Nucleated RBC 0.03 (0-0.12) K/uL Nucleated RBC % (auto) 0.3 % Microcytosis Present Tear Drop Cells 1+ Ovalocytes 1+ Sodium 137 (136-145) mmol/L Potassium 3.8 (3.5-5.1) mmol/L Chloride 103 (98-107) mmol/L Carbon Dioxide 26 (21-32) mmol/L Anion Gap 8 (3-11) BUN 15 (6-23) mg/dl Creatinine 0.72 (0.6-1.2) mg/dl Est Cr Clr Drug Dosing 58.8 ml/min Est GFR ( Amer) 87.3 ml/min Est GFR (Non-Af Amer) 75.3 ml/min BUN/Creatinine Ratio 20.8 H (10-20) Glucose 136 H (70-99(Fasting)) mg/dl Calcium 9.2 (8.6-10.3) mg/dl Total Bilirubin 0.9 (0.2-1.0) mg/dl AST 16 (13-39) U/L ALT 12 (7-52) U/L Alkaline Phosphatase 78 (34-104) U/L Troponin I High Sens 4.3 (0-14) pg/ml Total Protein 7.1 (6.0-8.3) gm/dl Albumin 4.5 (3.4-5.0) gm/dl Globulin 2.6 (2.5-4.0) gm/dl Albumin/Globulin Ratio 1.7 (0.9-2) Lipase 9 L (11-82) U/L Administered Medications Discontinued Medications Aspirin (Aspirin Chew 324 Mg) 324 mg PO NOW STA Stop: 04/22/23 22:35 Last Admin: 04/22/23 23:17 Dose: Not Given Documented By: BS Morphine Sulfate (Morphine Sulfate 2 Mg/Ml Carp) 2 mg IV NOW STA Stop: 04/22/23 22:35 Last Admin: 04/22/23 22:47 Dose: 2 mg Documented By: ASHUTOSH Ondansetron HCl (Ondansetron Inj 2 Mg/Ml 2 Ml Vial) 4 mg IV NOW STA Stop: 04/22/23 22:44 Last Admin: 04/22/23 22:47 Dose: 4 mg Documented By: ASHUTOSH Discharge Plan Visit Data Chief Complaint: Chest Pain Stated Complaint: Burning Chest Pain, L Shoulder Discomfort ED Provider: Sarah West Discharge Problem: Chest pain Forms Stand Alone Forms: Counts Include [facility] Prescriptions Prescriptions: No Action lorazepam 0.5 mg tablet 0.5 mg PO PM PRN (Reason: Insomnia) furosemide 40 mg tablet 40 mg PO DAILY potassium chloride 20 mEq tablet extended release 20 meq PO DAILY flecainide 100 mg tablet 100 mg PO Q12H Qty: 180 simethicone [Gas Relief (simethicone)] 125 mg capsule 125 mg PO DAILY PRN (Reason: Gi Upset) loperamide 2 mg capsule 2 mg PO DAILY PRN (Reason: Gi Upset) Eliquis 5 mg tablet 5 mg PO BID Qty: 180 3RF multivitamin Tablet 1 tab PO QAM acetaminophen [Tylenol Extra Strength] 500 mg Tablet 500 mg PO QID PRN (Reason: Pain) Rx Instructions: takes 4-5 times/day amlodipine [Norvasc] 5 mg Tablet 5 mg PO BID Qty: 60 2RF lisinopril 40 mg tablet 20 mg PO BID Qty: 30 2RF clonazepam 0.25 mg tablet,disintegrating 0.25 mg PO BID Qty: 60 0RF metoprolol succinate [Toprol XL] 100 mg tablet extended release 24 hr 100 mg PO BID Referrals Referrals: Olman Vigil MD [Primary Care Provider] -
[2023-04-22] MEDS ORDERED: ONDANSETRON INJ 2 MG/ML 2 ML VIAL IV STA (22:43)
[2023-04-22 22:45] LABS: Basophils # (auto) 0.08 K/uL (0-0.2); Basophils % (auto) 0.8 %; Eosinophils # (auto) 0.28 K/uL (0-0.50); Eosinophils % (auto) 2.9 %; Hematocrit (blood only) 39.7 % (37.0-47.0); Hemoglobin 12.8 g/dl (12.0-16.0); Immature Granulocytes # (auto) 0.03 K/uL (0.01-0.20); Immature Granulocytes % (auto) 0.3 %; Lymphocytes % (auto) 42.9 %; Mean Corpuscular Hemoglobin 21.9 pg (25.0-34.0); Mean Corpuscular Hgb Conc 32.2 g/dL (32.0-36.0); Monocytes # (auto) 0.94 K/uL (0.11-0.59); Monocytes % (auto) 9.6 %; Neutrophils # (auto) 4.27 K/uL (1.40-6.50); Neutrophils % (auto) 43.5 %; Nucleated RBC # (auto) 0.03 K/uL (0-0.12); Nucleated RBC % (auto) 0.3 %; RDW Coefficient of Variation 17.2 % (11.5-14.5); RDW Standard Deviation 38.4 fL (36.4-46.3); Red Blood Count 5.84 M/uL (4.20-5.40)
[2023-04-22 23:05] LABS: Albumin Level 4.5 gm/dl (3.4-5.0); Bilirubin,Total 0.9 mg/dl (0.2-1.0); Calcium 9.2 mg/dl (8.6-10.3); Potassium 3.8 mmol/L (3.5-5.1)
[2023-04-22 23:06] LABS: Mean Platelet Volume 9.7 fL (9.4-12.4); Ovalocytes 1+; Platelet Count 220 K/uL (130-400); Tear Drop Cells 1+
[2023-04-22 23:08] LABS: Microcytosis Present
[2023-04-22 23:11] LABS: Albumin Globulin Ratio 1.7 (0.9-2); BUN Creatinine Ratio 20.8 (10-20); Creatinine Clr Calc Pharmacy 58.8 ml/min; Est GFR (African American) 87.3 ml/min; Est GFR (Non-African American) 75.3 ml/min; Globulin 2.6 gm/dl (2.5-4.0); Total Protein 7.1 gm/dl (6.0-8.3)
[2023-04-22 23:17] LABS: Troponin I High Sensitivity 4.3 pg/ml (0-14)
--- NOTE | 2023-04-23 00:25 | History & Physical Report ---
Date of Service April 23, 2023 Assessment & Plan (1) Chest pain: Plan: 87 y/o F w/ PmHx paroxysmal atrial fibrillation on Eliquis, HTN, CHF, GERD, arthritis, and anxiety admitted for chest pain rule out. Chest pain: -Burning sensation w/ radiation to L arm, nauseous. -Blood work unremarkable, including troponin. -CXR w/o acute abnormality. -EKG NSR w/ 1st degree AV block, no acute ST changes. -Received ASA 324mg and 0.4mg nitro en route with EMS, 2mg Morphine in ED. -Will obtain repeat echo. -Replete K+ so that >4, Mg >2 -Trend troponin q6h. -Monitor on tele. HFpEF: -Noted, continue home Lasix, metoprolol, lisinopril. Paroxysmal atrial fibrillation: -EKG w/o signs of A. fib. -Continue home metoprolol, flecainide, Eliquis. HTN: -Continue home metoprolol, amlodipine, lisinopril. GERD: -Continue home pantoprazole. Anxiety: -Continue home sertraline. F/E/N/GI: Heart healthy diet. DVT Prophylaxis: Eliquis 5mg BID. Code status: Full code if short term only, does not want to be on life support chronically. PoA is daughter. Dispo: Med/tele. (2) (HFpEF) heart failure with preserved ejection fraction: (3) GERD (gastroesophageal reflux disease): (4) Hypertension: (5) Anxiety: (6) Anticoagulant long-term use: (7) Paroxysmal atrial fibrillation: History of Present Illness Chief Complaint: Chest burning. Primary Care Provider: Olman Vigil MD Lizette is an 87 y/o female w/ PmHx paroxysmal atrial fibrillation on Eliquis, HTN, CHF, GERD, arthritis, and anxiety coming into the emergency department for chest discomfort this past night. Patient states that earlier in the day she was at a concert at [employer] when during the concert she was feeling lightheaded/dizzy and went back to her apartment to cool off. The dizziness eventually subsided however later that night before she was going to bed she was brushing her teeth when all of a sudden she experienced a burning sensation at the sternum that eventually radiated up to the left shoulder. She has a history of heartburn but said this felt different. She also had some associated nausea associated with it. Denies fevers, chills, diaphoresis, diarrhea, constipation, urinary symptoms. She tells me she has a past history of congestive heart failure and atrial fibrillation on Eliquis. Her base weight is around 180-185 pounds and takes daily weights at home. Follows with Dr. Holman outpatient. In the EDC CBC w/o change from prior, CMP unremarkable, Troponin 4.3, Lipase 9. CXR without any acute abnormalities. EKG NSR without any acute ST changes. Allergies Allergy/AdvReac Type Severity Reaction Status Date / Time metronidazole Allergy Intermediate HIVES Verified 07/29/22 13:15 naproxen Allergy Unknown HIVES Verified 07/29/22 13:15 Home Medications Medication Instructions Recorded Confirmed Type flecainide 100 mg tablet 100 mg PO Q12H #180 tabs 07/28/19 04/23/23 History furosemide 40 mg tablet 40 mg PO DAILY 07/28/19 04/23/23 History lorazepam 0.5 mg tablet 0.5 mg PO PM PRN Insomnia 07/28/19 04/23/23 History potassium chloride 20 mEq 20 meq PO DAILY 07/28/19 04/23/23 History tablet,extended release multivitamin 1 tab PO QAM 08/27/19 04/23/23 History amlodipine 5 mg tablet (Norvasc) 5 mg PO BID #60 tabs 08/29/19 04/23/23 Rx clonazepam 0.25 mg disintegrating 0.25 mg PO BID #60 tabs 08/29/19 04/23/23 Rx tablet metoprolol succinate 100 mg 100 mg PO DAILY 06/16/21 04/23/23 History tablet,extended release 24 hr (Toprol XL) apixaban 5 mg tablet (Eliquis) 5 mg PO BID #180 tabs 07/21/21 04/23/23 Rx lisinopril 20 mg tablet 20 mg PO BID 04/23/23 04/23/23 History pantoprazole 20 mg tablet,delayed 20 mg PO BID 04/23/23 04/23/23 History release sertraline 50 mg tablet 50 mg PO DAILY 04/23/23 04/23/23 History Past Med/Surg History Medical History Chest pain CHF (congestive heart failure) Paroxysmal atrial fibrillation Surgical History History of dilatation and curettage x 2 History of hysterectomy with BSO History of 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 Family History Father , age 60 Colorectal cancer Mother , age 98 Dementia Hypertension Stroke Sister , age 60s Mesothelioma Denies family history of Coronary heart disease AAA (abdominal aortic aneurysm) Social History Smoking Status: Never smoker Second Hand Exposure: No; Do You Dip or Chew Tobacco: No; Tobacco Cessation Education Requested by Patient: No Hx Alcohol Use: No Hx Substance Use: No Preferred Language: Irish Communication Ability: Effective Vehicle Safety Inspector Required: No Beliefs That Will Affect Care: None marital status: Unknown Current Living Situation: Personal Care Facility Current Living Situation Comment: [place] current occupational status: 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 Physical Exam Constitutional: WD/WN, vitals as above Eyes: PERRL, conjunctivae normal, anicteric sclerae Respiratory: normal respiratory effort, lungs clear to auscultation Cardiovascular: Rate/Rhythm: regular rate and regular rhythm Heart Sounds: normal S1 and normal S2 Trace edema at bilateral lower extremities. Gastrointestinal (Abdomen): normal bowel sounds, soft, nontender, no hepatosplenomegaly Skin: no rashes, warm and dry Psychiatric: A+Ox3, euthymic affect Results & Data Results & Data Vital Signs (Past 12 Hours) Vital Signs Temp Pulse Pulse Resp BP BP Pulse Ox 04/22/23 22:30 120 H 24 94 04/22/23 22:52 61 17 93 04/22/23 22:21 36.4 C L 57 L 17 130/61 93 04/22/23 22:21 36.4 C L 57 L 17 130/61 93 O2 Del Method 04/22/23 22:30 04/22/23 22:52 Room Air 04/22/23 22:21 Room Air 04/22/23 22:21 Room Air Supervising Physician Co-Signing Physician Notes Patient seen and examined, chart reviewed, case discussed with Dr. Harry and I agree with the assessment and plan as documented above. In brief, patient is a pleasant 87yo female presenting with chest discomfort - burning sensation in substernal region with radiation to left arm as well s nausea. Patient initially thought her symptoms were secondary to GERD but unrelieved by TUMS. Non-positional, non-exertional. On physical exam she is afebrile, HD stable, NAD Skin - warm, dry, intact HEENT -NC/AT, PERRL, MMM, Neck supple Heart - +S1/S2, bradycardic, regular, no m/r/g, no reproducible chest wall pain Lungs - CTA, no rales/rhonchi/wheezes Abd - +BS, soft, NT/ND Ext - warm, well perfused, no clubbing, cyanosis or edema Labs and images reviewed. Troponin WNL EKG with no acute ischemic changes Assessment/Plan: -Trend troponin -Check 2D echo -Telemetry monitoring -Continue home medications, Lasix, Metoprolol and Lisinopril, AMlodipine -Continue Flecainide and Eliquis for AF -Remainder of plan as above Resident Activity Tracking Resident Involvement: Resident Care Provided Care Provided: Adult Hospital Medicine
[2023-04-23] MEDS ORDERED: POTASSIUM CHLORIDE CRTAB 20 MEQ TABCR PO STA (00:57)
[2023-04-23] MEDS ORDERED: FLECAINIDE ACETATE 100 MG TABLET PO SCH (02:16)
[2023-04-23] MEDS ORDERED: ONDANSETRON INJ 2 MG/ML 2 ML VIAL IV PRN (02:16)
[2023-04-23] MEDS ORDERED: NITROGLYCERIN SL 0.4 MG/TAB TAB SL PRN (02:16)
[2023-04-23] MEDS ORDERED: clonazePAM 0.25 MG TAB PO PRN (05:56)
[2023-04-23] MEDS: ACETAMINOPHEN 325 MG TAB PO PRN ×2 (06:08→12:52)
--- NOTE | 2023-04-23 06:55 | Discharge Summary ---
Date of Service April 23, 2023 Admission HPI Per Admitting Provider Lizette is an 87 y/o female w/ PmHx paroxysmal atrial fibrillation on Eliquis, HTN, CHF, GERD, arthritis, and anxiety coming into the emergency department for chest discomfort this past night. Patient states that earlier in the day she was at a concert at the [employer] when during the concert she was feeling lightheaded/dizzy and went back to her apartment to cool off. The dizziness eventually subsided however later that night before she was going to bed she was brushing her teeth when all of a sudden she experienced a burning sensation at the sternum that eventually radiated up to the left shoulder. She has a history of heartburn but said this felt different. She also had some associated nausea associated with it. Denies fevers, chills, diaphoresis, diarrhea, constipation, urinary symptoms. She tells me she has a past history of congestive heart failure and atrial fibrillation on Eliquis. Her base weight is around 180-185 pounds and takes daily weights at home. Follows with Dr. Holman outpatient. In the [facility] CBC w/o change from prior, CMP unremarkable, Troponin 4.3, Lipase 9. CXR without any acute abnormalities. EKG NSR without any acute ST changes. Admission Exam Per Admitting Provider Constitutional: WD/WN, vitals as above Eyes: PERRL, conjunctivae normal, anicteric sclerae Respiratory: normal respiratory effort, lungs clear to auscultation Cardiovascular: Rate/Rhythm: regular rate and regular rhythm Heart Sounds: normal S1 and normal S2 Trace edema at bilateral lower extremities. Gastrointestinal (Abdomen): normal bowel sounds, soft, nontender, no hep atosplenomegaly Skin: no rashes, warm and dry Psychiatric: A+Ox3, euthymic affect Principal Diagnosis Musculoskeletal chest pain and GERD Discharge Exam Constitutional WD/WN, vitals as above Eyes PERRL, conjunctivae normal, anicteric sclerae Respiratory normal respiratory effort, lungs clear to auscultation Cardiovascular RRR, no murmur, no edema Gastrointestinal (Abdomen) normal bowel sounds, soft, nontender, no hepatosplenomegaly Musculoskeletal no cyanosis or clubbing, extremities motor strength 5/5 Tenderness to palpation on the left upper anterior chest wall Skin no rashes, warm and dry Psychiatric A+Ox3, euthymic affect Discharge Data Allergies Allergy/AdvReac Type Severity Reaction Status Date / Time metronidazole Allergy Intermediate HIVES Verified 07/29/22 13:15 naproxen Allergy Unknown HIVES Verified 07/29/22 13:15 Consultations 04/22/23 23:59 ED Decision to Admit Stat Ordered Studies Labs 04/22/23 04/22/23 04/23/23 22:20 22:20 03:43 WBC 9.80 RBC 5.84 H Hgb 12.8 Hct 39.7 MCV 68.0 L MCH 21.9 L MCHC 32.2 RDW Std Deviation 38.4 RDW Coeff of Mikayla 17.2 H Plt Count 220 MPV 9.7 Immature Gran % (Auto) 0.3 Neut % (Auto) 43.5 Lymph % (Auto) 42.9 [place] % (Auto) 9.6 Eos % (Auto) 2.9 Baso % (Auto) 0.8 Neut # (Auto) 4.27 Lymph # (Auto) 4.20 H [place] # (Auto) 0.94 H Eos # (Auto) 0.28 Baso # (Auto) 0.08 Immature Gran # (Auto) 0.03 Absolute Nucleated RBC 0.03 Nucleated RBC % (auto) 0.3 Microcytosis Present Tear Drop Cells 1+ Ovalocytes 1+ Sodium 137 Potassium 3.8 Chloride 103 Carbon Dioxide 26 Anion Gap 8 BUN 15 Creatinine 0.72 Est Cr Clr Drug Dosing 58.8 Est GFR ( Amer) 87.3 Est GFR (Non-Af Amer) 75.3 BUN/Creatinine Ratio 20.8 H Glucose 136 H Calcium 9.2 Total Bilirubin 0.9 AST 16 ALT 12 Alkaline Phosphatase 78 Troponin I High Sens 4.3 5.2 Total Protein 7.1 Albumin 4.5 Globulin 2.6 Albumin/Globulin Ratio 1.7 Lipase 9 L SARS-CoV-2, RNA, NAAT 04/23/23 04/23/23 04/23/23 10:03 10:03 10:03 WBC 9.01 RBC 5.96 H Hgb 12.7 Hct 40.4 MCV 67.8 L MCH 21.3 L MCHC 31.4 L RDW Std Deviation 37.8 RDW Coeff of Mikayla 17.2 H Plt Count 251 MPV 9.5 Immature Gran % (Auto) Neut % (Auto) Lymph % (Auto) [place] % (Auto) Eos % (Auto) Baso % (Auto) Neut # (Auto) Lymph # (Auto) [place] # (Auto) Eos # (Auto) Baso # (Auto) Immature Gran # (Auto) Absolute Nucleated RBC Nucleated RBC % (auto) Microcytosis Tear Drop Cells Ovalocytes Sodium 138 Potassium 4.2 Chloride 104 Carbon Dioxide 29 Anion Gap 5 BUN 10 Creatinine 0.59 L Est Cr Clr Drug Dosing 71.9 Est GFR ( Amer) 95.5 Est GFR (Non-Af Amer) 82.4 BUN/Creatinine Ratio 16.9 Glucose 107 H Calcium 9.5 Total Bilirubin 1.0 AST 16 ALT 11 Alkaline Phosphatase 60 Troponin I High Sens 5.6 Total Protein 6.8 Albumin 4.3 Globulin 2.5 Albumin/Globulin Ratio 1.7 Lipase SARS-CoV-2, RNA, NAAT 04/23/23 Unknown WBC RBC Hgb Hct MCV MCH MCHC RDW Std Deviation RDW Coeff of Mikayla Plt Count MPV Immature Gran % (Auto) Neut % (Auto) Lymph % (Auto) [place] % (Auto) Eos % (Auto) Baso % (Auto) Neut # (Auto) Lymph # (Auto) [place] # (Auto) Eos # (Auto) Baso # (Auto) Immature Gran # (Auto) Absolute Nucleated RBC Nucleated RBC % (auto) Microcytosis Tear Drop Cells Ovalocytes Sodium Potassium Chloride Carbon Dioxide Anion Gap BUN Creatinine Est Cr Clr Drug Dosing Est GFR ( Amer) Est GFR (Non-Af Amer) BUN/Creatinine Ratio Glucose Calcium Total Bilirubin AST ALT Alkaline Phosphatase Troponin I High Sens Total Protein Albumin Globulin Albumin/Globulin Ratio Lipase SARS-CoV-2, RNA, NAAT NEGATIVE Chest X-Ray 04/22/23 22:29 SINGLE VIEW CHEST CLINICAL HISTORY: Atypical chest pain. FINDINGS: An AP, portable, upright chest radiograph is compared to study dated 03/24/2023. The heart is enlarged nodes in atherosclerotic calcification of the thoracic aorta. The pulmonary vasculature is noncongested. Chronic interstitial thickening is similar to previous. Scarring/atelectasis is noted at the lung bases. The lungs and pleural spaces are otherwise clear. No pneumothorax is seen. The skeletal structures are osteopenic. The bony thorax is grossly intact. IMPRESSION: Cardiomegaly with no acute cardiopulmonary abnormality identified. ACT 112: Negative or not required by law. Electronically signed by: Néstor Escobar M.D. 04/23/2023 8:40 AM Hospital Course (1) Chest pain: 87 y/o F w/ PmHx paroxysmal atrial fibrillation on Eliquis, HTN, CHF, GERD, arthritis, and anxiety admitted for chest pain rule out. Chest pain -Burning sensation w/ radiation to L arm, nauseous. -ASA 324 mg and nitro via EMS -Chest x-ray negative for acute abnormalities -Troponin negative x3. -CBC benign, CMP benign, lipase negative -EKG showing sinus bradycardia with first-degree AV block -Echo showed EF of 60-65%, no significant change compared to study done on 08/2019. -Chest pain reproducible on physical exam with palpation, more than likely musculoskeletal in nature. -Should follow-up with PCP, may consider physical therapy if patient's symptoms persist. GERD -Improved by time of admission. -We will start famotidine 20 mg once a day in addition to her home Protonix. -Follow-up with PCP about continuing GERD treatment. HFpEF: -Continue home Lasix, metoprolol, lisinopril. -Echo done during admission showed no significant changes. Paroxysmal atrial fibrillation: -EKG w/o signs of A. fib. -Continue home metoprolol, flecainide, Eliquis. HTN: -Continue home metoprolol, amlodipine, lisinopril. GERD: -Continue home pantoprazole. Anxiety: -Continue home sertraline. (2) (HFpEF) heart failure with preserved ejection fraction: (3) GERD (gastroesophageal reflux disease): (4) Hypertension: (5) Anxiety: (6) Anticoagulant long-term use: (7) Paroxysmal atrial fibrillation: Total Time Total Time Spent Total Time Spent (In Minutes): Please refer to attendings attestation. Discharge Plan Discharge Items Patient Disposition: Home - Self-Care Reason For Visit: CHEST PAIN RULE OUT Discharge Diagnosis: Musculoskeletal chest pain and GERD Activity: Resume your previous activity Non-emergency contact: Primary Care Provider Call non-emergency contact if: you have any medication questions, your pain is unusual for you and your temperature is above 101.5 Follow-up/Referrals: Olman Vigil MD [Primary Care Provider] - (PLEASE CALL YOUR PRIMARY CARE PROVIDER TO SCHEDULE A DISCHARGE FOLLOW-UP APPOINTMENT WITHIN 7-10 DAYS.) Diet: Heart Healthy Addtl Attending Provider Instructions: You were admitted to the hospital for chest pain rule out and GERD. Your chest pain was noncardiac in nature. Your GERD will be controlled with your current management and we will add famotidine to your regular medications. A discharge summary will be sent to your primary care physician to ensure continuity of care. Please bring this discharge summary with you to your next office appointment so that your provider can review it at that time. Follow-up appointments: * Make a follow-up appointment with your PCP within the next week. It is very important that you follow up with them shortly after discharge from the hospital. * Keep all your follow-up appointments as already scheduled. If you cannot make an appointment, notify your provider. Medications: Your medication list has been reviewed and reconciled upon discharge to ensure accuracy and continuity of care. An updated list of all your medications is included with your hospital discharge paperwork. Please review this list closely, and make note of any changes. * We sent a new medication called famotidine to your pharmacy. Please take famotidine 20 mg once a day. * If you have any issues filling these prescriptions, please call [phone] and ask to leave a message for Dr. Cooney. * Take your medications as instructed; do not skip a dose of your medicines. Make sure all of your doctors know every medicine you are taking (including [id number] medicines, vitamins, and supplements). Call your primary care provider before taking any new medicines (including over- the-counter medicines, vitamins, and supplements), because some of these may interact with your current medications, or may make your symptoms worse. Tell your primary care provider if you cannot afford your medications. CONTACT YOUR PRIMARY CARE PROVIDER if you experience any of the following: * Worsening of symptoms * Fever, chills, or fatigue * Difficulty following your treatment plan, or difficulty taking medications CALL 911 OR GO TO THE EMERGENCY DEPARTMENT if you experience any of the following: * Sudden, severe abdominal pain or nausea/vomiting * Severe chest pain, or chest pain that radiates (moves) to your jaw or arm * Sudden, severe shortness of breath or difficulty breathing Thank you for allowing us to participate in your care. Pending Studies at Discharge: No Stand-Alone Forms: My Smeet, Smoking Cessation Medications and DC Order Prescriptions: New famotidine 20 mg tablet 20 mg PO DAILY Qty: 30 0RF Continued lorazepam 0.5 mg tablet 0.5 mg PO PM PRN (Reason: Insomnia) furosemide 40 mg tablet 40 mg PO DAILY potassium chloride 20 mEq tablet extended release 20 meq PO DAILY flecainide 100 mg tablet 100 mg PO Q12H Qty: 180 Eliquis 5 mg tablet 5 mg PO BID Qty: 180 3RF multivitamin Tablet 1 tab PO QAM amlodipine [Norvasc] 5 mg Tablet 5 mg PO BID Qty: 60 2RF clonazepam 0.25 mg tablet,disintegrating 0.25 mg PO BID Qty: 60 0RF metoprolol succinate [Toprol XL] 100 mg tablet extended release 24 hr 100 mg PO DAILY pantoprazole 20 mg tablet,delayed release (DR/EC) 20 mg PO BID lisinopril 20 mg tablet 20 mg PO BID sertraline 50 mg tablet 50 mg PO DAILY Discharge Orders: Discharge Order (Routine); Ordered 04/23/23 Ordered By: Néstor Cooney Admission Data Admit Date/Time: 04/23/23 00:50 Attending Provider: Aiden Stewart Admit Provider: Jake Harry Primary Care Provider: Olman Vigil Other Providers: Shayla Dukes Other Interventions: Discharge Summary Assessment (RN) Last Done: 04/23/23 13:36 Supervising Physician Co-Signing Physician Notes Attending attestation Pt seen and examined in concert with Dr. Cooney. In agreement with the documented findings as noted in the resident documentation with any exceptions or additions as noted here. Asymptomatic at time of examination without recurrence of complaint. On examination, S1/S2 nl RRR no MCG. CTAB. Abd NT/ND BS+ve Chest pain - negative troponin x 3, no ST/T wave changes. Echocardiogram as noted. Add famotidine daily. Transition to outpatient care. HFpEF - continue furosemide, metoprolol, lisinopril Else see resident documentation as noted. Total attending physician time spent with this patient's care on the day of discharge: 35 minutes Resident Activity Tracking Resident Involvement: Resident Care Provided Care Provided: Adult Hospital Medicine
--- NOTE | 2023-04-23 08:41 | XRay Report ---
SINGLE VIEW CHEST CLINICAL HISTORY: Atypical chest pain. FINDINGS: An AP, portable, upright chest radiograph is compared to study dated 03/24/2023. The heart i s enlarged nodes in atherosclerotic calcification of the thoracic aorta. The pulmonary vasculature is noncongested. Chronic interstitial thickening is similar to previous. Scarring/atelectasis is noted at the lung bases. The lungs and pleural spaces are otherwise clear. No pneumothorax is seen. The ske letal structures are osteopenic. The bony thorax is grossly intact. IMPRESSION: Cardiomegaly with no acute cardiopulmonary abnormality identified. ACT 112: Negative or not required by law. Electronically signed by: Néstor Escobar M.D. 04/23/2023 8:40 AM
[2023-04-23] MEDS ORDERED: APIXABAN 5 MG TABLET PO SCH (09:00)
[2023-04-23] MEDS ORDERED: clonazePAM 0.25 MG TAB PO SCH (09:00)
[2023-04-23] MEDS ORDERED: SERTRALINE HCL 50 MG TABLET PO SCH (09:00)
[2023-04-23] MEDS ORDERED: amLODIPine BESYLATE 5 MG TAB PO SCH (09:00)
[2023-04-23] MEDS ORDERED: PANTOprazole 40 MG TAB PO SCH (09:00)
[2023-04-23] MEDS ORDERED: lisinopril 20 MG TAB PO SCH (09:00)
[2023-04-23] MEDS ORDERED: FUROSEMIDE 40 MG TAB PO SCH (09:00)
[2023-04-23] MEDS ORDERED: METOPROLOL SUCC 50MG EXT REL TAB PO SCH (09:00)
[2023-04-23] MEDS ORDERED: POTASSIUM CHLORIDE CRTAB 20 MEQ TABCR PO SCH (09:00)
[2023-04-23 10:19] LABS: Hematocrit (blood only) 40.4 % (37.0-47.0); Hemoglobin 12.7 g/dl (12.0-16.0); Mean Corpuscular Hemoglobin 21.3 pg (25.0-34.0); Mean Corpuscular Hgb Conc 31.4 g/dL (32.0-36.0); Mean Corpuscular Volume 67.8 fL (80.0-100.0); Mean Platelet Volume 9.5 fL (9.4-12.4); Platelet Count 251 K/uL (130-400); RDW Coefficient of Variation 17.2 % (11.5-14.5); RDW Standard Deviation 37.8 fL (36.4-46.3); Red Blood Count 5.96 M/uL (4.20-5.40); White Blood Count 9.01 K/ul (4.8-10.8)
[2023-04-23 10:39] LABS: Albumin Globulin Ratio 1.7 (0.9-2); Albumin Level 4.3 gm/dl (3.4-5.0); BUN Creatinine Ratio 16.9 (10-20); Calcium 9.5 mg/dl (8.6-10.3); Creatinine Clr Calc Pharmacy 71.9 ml/min; Est GFR (African American) 95.5 ml/min; Est GFR (Non-African American) 82.4 ml/min; Globulin 2.5 gm/dl (2.5-4.0); Potassium 4.2 mmol/L (3.5-5.1); Total Protein 6.8 gm/dl (6.0-8.3)
--- NOTE | 2023-04-23 10:41 | Billing Data ---
Date of Service April 23, 2023 Coding Level of Care Code 09961 INT INP/OBS CARE
--- NOTE | 2023-04-23 12:33 | XCELERA ---
[id number]
--- NOTE | 2023-04-23 13:15 | Electrocardiogram Report ---
Test Reason : Blood Pressure : / mmHG Vent. Rate : 059 BPM Atrial Rate : 059 BPM P-R Int : 258 ms QRS Dur : 112 ms QT Int : 466 ms P-R-T Axes : 082 -31 040 degrees QTc Int : 461 ms Sinus bradycardia with 1st degree A-V block Left axis deviation Incomplete right bundle branch block Abnormal ECG When compared with ECG of 24-MAR-2023 05:32, Borderline criteria for Anteroseptal infarct are no longer Present Confirmed by eMjia Bland ([id number]) on 04/23/2023 1:15:25 PM Referred By: REFERRED SELF Confirmed By:Mejia Bland
--- NOTE | 2023-04-23 13:28 | Electrocardiogram Report ---
Test Reason : Blood Pressure : / mmHG Vent. Rate : 057 BPM Atrial Rate : 057 BPM P-R Int : 314 ms QRS Dur : 110 ms QT Int : 480 ms P-R-T Axes : 086 -42 043 degrees QTc Int : 467 ms Sinus bradycardia with 1st degree A-V block Left axis deviation Poor R wave progression, consider anterior WI vs. lead placement vs. LVH Abnormal ECG When compared with ECG of 22-APR-2023 22:20, (unconfirmed) Incomplete right bundle branch block is no longer Present Confirmed by Mejia Bland ([id number]) on 04/23/2023 1:28:24 PM Referred By: REFERRED SELF Confirmed By:Mejia Bland
[2023-04-23] MEDS ORDERED: LORazepam 0.5 MG TAB PO STA (14:52)
== END 2023-04-23 16:05 | disposition home or self-care (01) ==
LOC: ED 22:14 → 2W 22:14 → SUATTDRO 04-23 00:50 → 2W 04-23 01:21

== ENCOUNTER 2023-10-09 12:42 | Inpatient (IN) ==
--- NOTE | 2023-10-09 12:53 | Emergency Department Note ---
Impression & Plan Hypoxia, Closed right hip fracture, Rhabdomyolysis, Leukocytosis, Troponin level elevated ED Provider Note NAME: HENRY BOOKER AGE: 88 SEX: F : 1935 ARRIVES VIA: Ambulance INFORMANT: Patient, ED PROVIDER(S): Didier Oneil MD CHIEF COMPLAINT: Found down on the ground, hip pain, hypoxia MEDICAL DECISION MAKING: Patient was found down by her daughter this morning. Patient was noted to be hypoxemic in the 70s. IV was established blood was obtained along with CT head cervical spine thoracic and lumbar spine patient did have plain films completed of the chest and right hip. Was concerned the patient does have a hip fracture. C-spine was cleared. The patient has no reproducible head or neck pain Patient's blood work shows a white count of 22 so antibiotics were ordered. The patient has no abdominal pain on exam. H&H is normal with normal platelet count. Kidney function unremarkable initial troponin 157. No history of CHF patient does have pulmonary edema seen on her CAT scan imaging. The patient was ordered Lasix and a Reardon catheter. Patient is a patient to have a CK completed which is at 1284. Patient's x-ray of the hip shows a right femoral neck fracture. CT cervical spine and head are negative. The patient's chest x-ray is unremarkable. Lumbar spine CT does not show acute fractures. Patient CT of the rest spine does not show any fractures but does show pulmonary edema and bilateral pleural effusions which may be contributing to patient's hypoxia. Patient was ordered IV Lasix. I did speak with the on-call orthopedist Dr. Flanagan he did evaluate the patient. I did convey the findings to the patient the patient's daughter. I subsequently did speak with the inpatient medicine service Dr. Alexandra and the patient was admitted. Critical Care: I have personally spent 45 minutes of critical care time in direct management of this patient. This includes bedside care, interpretation of diagnostic studies, and testing, discussion with consultants, patient, and family members, and other require inpatient management activities. This 45 minutes is in excess of all separately billable procedures. Discussion w/ other healthcare providers: Dr. Flanagan orthopedics Dr. Alexandra inpatient medicine service Prior /Outside records reviewed: Reviewed a discharge summary from April 23, [address] Cooney. The patient was seen at that time due to concern for chest discomfort in the setting of known history of A-fib on Eliquis hypertension CHF GERD and anxiety. Differential diagnosis: Fracture, dislocation, contusion, strain, sprain, ICH, hemothorax, intra- abdominal injury, anemia among other causes were considered. Diagnostics, as interpreted by me: ECG:Sinus with first-degree AV block, rate of 78, normal QRS, left axis deviation no ST elevations. Cardiac monitoring: An order was placed for continuous cardiac monitoring. The monitor shows a rate of 87 with sinus rhythm. Patient was placed on pulse oximetry Medical decision rules: Continued head CT rule Imaging studies: I informally interpreted the patient's chest x-ray which does not show obvious pneumonia or pneumothorax with formal report to follow. I informally interpreted the patient's CT head which does not show obvious ICH HPI: Patient presents due to concern for likely fall. The patient is unsure as to when this occurred. Daughter at bedside also provides additional history and states that she found her this morning but last spoke to her on . Patient does complain of mild shortness of breath and some right hip pain. Patient does take blood thinning medications. The patient's daughter does believe that she has been confused. Patient denies any head neck or chest pain. She does have some associated back and hip pain. Patient does take blood thinning medications. Patient did not likely take her medications last evening or this morning. PAST MEDICAL HISTORY: See Below PAST SURGICAL HISTORY: See Below SOCIAL HISTORY: See Below HOME MEDICATIONS: See Below ALLERGIES: See Below VITALS: See Below PHYSICAL EXAMINATION: GENERAL: C-collar in place, nasal cannula in place. EYE EXAM: Normal conjunctiva. PERRL, no anisocoria and EOM's grossly intact w/o pain. OROPHARYNX: Moist mucus membranes, grossly normal dentition. NECK: Supple, no nuchal rigidity, no adenopathy, non-tender. No signs of meningismus. FROM of the neck with good chin to chest and neck extension. No stridor. LUNGS: Clear to auscultation. Normal chest wall mechanics. Chest: No reproducible chest wall pain. HEART: NSR, no MRG. ABDOMEN: Abdomen soft, non-tender, no masses, no rebound or guarding. BACK: No CVA TTP. SKIN: No rashes and no bruising. UPPER EXTREMITIES: Upper extremities are grossly normal. No TTP or deformity. LOWER EXTREMITIES: Right lower extremity shortening with pain over the right lateral hip. NEURO EXAM: A&O x3, cranial nerves II-XII grossly intact, normal speech, moves all 4 extremities. Past Med/Surg History Medical History Chest pain Paroxysmal atrial fibrillation CHF (congestive heart failure) Chest pain Surgical History History of 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 History of dilatation and curettage x 2 History of hysterectomy with BSO Family History Father , age 60 Colorectal cancer Mother , age 98 Dementia Hypertension Stroke Sister , age 60s Mesothelioma Denies family history of Coronary heart disease AAA (abdominal aortic aneurysm) Social History Smoking Status: Never smoker Second Hand Exposure: No; Do You Dip or Chew Tobacco: No; Hx Alcohol Use: Yes Alcohol type: wine Hx Substance Use: No Preferred Language: Belarusian Communication Ability: Effective Line Service Attendant Required: No Beliefs That Will Affect Care: None marital status: Unknown Current Living Situation: Alone and Long Term Current Living Situation Comment: independent living at [facility] current occupational status: 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 Feels Safe at Home: Yes Safety Concerns: Feels Safe At This Time Assistive Devices: Cane, Glasses and Raised Toilet Seat Allergies Allergies Allergy/AdvReac Type Severity Reaction Status Date / Time metronidazole Allergy Intermediate HIVES Verified 10/09/23 16:33 naproxen Allergy Intermediate HIVES Verified 10/09/23 16:33 perflutren [From DefinQubit] AdvReac Back Pain Verified 10/10/23 07:53 Home Meds Home Medications Medication Instructions Recorded Confirmed flecainide 100 mg tablet 100 mg PO Q12H #180 tabs 07/28/19 10/09/23 furosemide 40 mg tablet 40 mg PO DAILY 07/28/19 10/09/23 lorazepam 0.5 mg tablet 0.5 mg PO PM PRN Insomnia 07/28/19 10/09/23 potassium chloride 20 mEq 20 meq PO DAILY 07/28/19 10/09/23 tablet,extended release multivitamin 1 tab PO QAM 08/27/19 10/09/23 metoprolol succinate 100 mg 100 mg PO DAILY 06/16/21 10/09/23 tablet,extended release 24 hr (Toprol XL) lisinopril 20 mg tablet 20 mg PO BID 04/23/23 10/09/23 pantoprazole 20 mg tablet,delayed 20 mg PO BID 04/23/23 10/09/23 release sertraline 50 mg tablet 50 mg PO DAILY 04/23/23 10/09/23 acetaminophen 500 mg tablet 500 mg PO DIRECTED PRN 10/09/23 10/09/23 (Tylenol Extra Strength) ARTHRITIS PAIN carboxymethylcellulose 0.5 1 drp ophthalmic (eye) DIRECTED 10/09/23 10/09/23 %-glycerin 0.9 % eye drops PRN Dry Eyes (Refresh Optive) loperamide 2 mg tablet 2 mg PO DIRECTED PRN Diarrhea 10/09/23 10/09/23 simethicone 125 mg chewable tablet 125 mg PO DIRECTED PRN GAS 10/09/23 10/09/23 (Gas-X Extra Strength) RELIEF Previous Rx's Medication Instructions Recorded amlodipine 5 mg tablet (Norvasc) 5 mg PO BID #60 tabs 08/29/19 clonazepam 0.25 mg disintegrating 0.25 mg PO BID #60 tabs 08/29/19 tablet apixaban 5 mg tablet (Eliquis) 5 mg PO BID #180 tabs 07/21/21 Results & Data (ED) Vital Signs Vital Signs - 24 hr 10/09/23 13:10 10/09/23 13:40 10/09/23 14:00 Temperature 36.6 C Temperature Source Oral Pulse Rate 82 79 76 Respiratory Rate 21 24 Respiratory Depth Normal Blood Pressure 155/67 H Blood Pressure Mean 96 Pulse Oximetry 91 92 Oxygen Delivery Method Nasal Cannula Nasal Cannula Oxygen Flow Rate 5 5 Sepsis Recent Fever Within 48 Hours No Sepsis New/Unexplained Change in Mental Status N/A Sepsis Action Taken by Nursing No Action Required 10/09/23 14:30 10/09/23 15:20 10/09/23 15:30 Temperature Temperature Source Pulse Rate 75 79 77 Respiratory Rate 25 H 21 24 Respiratory Depth Blood Pressure 134/58 L 137/50 L Blood Pressure Mean 83 79 Pulse Oximetry 92 93 93 Oxygen Delivery Method Nasal Cannula Oxymask Oxymask Oxygen Flow Rate 5 6 6 Sepsis Recent Fever Within 48 Hours Sepsis New/Unexplained Change in Mental Status Sepsis Action Taken by Long Term Medications Current Medication List: was personally reviewed by me Laboratory Data Attestation: I reviewed the patient's lab results. 10/10/23 02:13 10/10/23 02:13 Lab Results 10/09/23 10/09/23 10/09/23 Range/Units 13:07 13:29 14:43 WBC 22.90 H (4.8-10.8) K/ul RBC 6.72 H (4.20-5.40) M/uL Hgb 14.1 (12.0-16.0) g/dl Hct 45.1 (37.0-47.0) % MCV 67.1 L (80.0-100.0) fL MCH 21.0 L (25.0-34.0) pg MCHC 31.3 L (32.0-36.0) g/dL RDW Std Deviation 34.9 L (36.4-46.3) fL RDW Coeff of Mikayla 17.4 H (11.5-14.5) % Plt Count 202 (130-400) K/uL MPV 10.4 (9.4-12.4) fL Immature Gran % (Auto) 0.9 % Neut % (Auto) 86.1 % Lymph % (Auto) 5.8 % [place] % (Auto) 6.9 % Eos % (Auto) 0.0 % Baso % (Auto) 0.3 % Neut # (Auto) 19.70 H (1.40-6.50) K/uL Lymph # (Auto) 1.33 (1.20-3.40) K/uL [place] # (Auto) 1.58 H (0.11-0.59) K/uL Eos # (Auto) 0.01 (0.00-0.50) K/uL Baso # (Auto) 0.07 (0.00-0.20) K/uL Immature Gran # (Auto) 0.21 H (0.01-0.20) K/uL Absolute Nucleated RBC 0.03 (0.00-0.12) K/uL Nucleated RBC % (auto) 0.1 % Polychromasia 1+ Microcytosis Present Target Cells 1+ Ovalocytes 1+ Sodium TNP Potassium TNP Chloride 103 (98-107) mmol/L Carbon Dioxide 25 (21-32) mmol/L Anion Gap TNP BUN 17 (6-23) mg/dl Creatinine 0.73 (0.6-1.2) mg/dl Est Cr Clr Drug Dosing 57.8 ml/min Est GFR ( Amer) 85.2 ml/min Est GFR (Non-Af Amer) 73.5 ml/min BUN/Creatinine Ratio 23.3 H (10-20) Glucose 143 H (70-99(Fasting)) mg/dl Calcium 9.1 (8.6-10.3) mg/dl Total Bilirubin 2.1 H (0.2-1.0) mg/dl AST TNP ALT 27 (7-52) U/L Alkaline Phosphatase 75 (34-104) U/L Total Creatine Kinase (26-192) U/L Troponin I High Sens 157.8 H* (0-14) pg/ml Total Protein 7.2 (6.0-8.3) gm/dl Albumin 4.4 (3.4-5.0) gm/dl Globulin 2.8 (2.5-4.0) gm/dl Albumin/Globulin Ratio 1.6 (0.9-2) Procalcitonin Cancelled Urine Color Yellow Urine Appearance Clear (Clear) Urine pH 6.5 (4.5-7.5) Ur Specific [place] 1.020 (1.000-1.030) Urine Protein 2+ H (Negative) Urine Glucose (UA) Negative (Negative) Urine Ketones 1+ H (Negative) Urine Blood 2+ H (Negative) Urine Nitrite Negative (Negative) Urine Bilirubin Negative (Negative) Urine Urobilinogen Negative (Negative) Ur Leukocyte Esterase Negative (Negative) Urine WBC (Auto) 1-5 (0-5) /hpf Urine RBC (Auto) 5-10 H (0-4) /hpf U Hyaline Cast (Auto) 0 (0-5) /lpf U Epithel Cells (Auto) 10-20 H (0-5) /lpf Urine Bacteria (Auto) Negative (Negative) Adenovirus (PCR) Not Detected (NotDetected) B. pertussis DNA (PCR) Not Detected (NotDetected) B.parapertussis DNA PCR Not Detected (NotDetected) C. pneumoniae DNA (PCR) Not Detected (NotDetected) Coronavirus OC43 (PCR) Not Detected (NotDetected) Coronavirus HKU1 (PCR) Not Detected (NotDetected) Coronavirus 229E (PCR) Not Detected (NotDetected) SARS-CoV-2 (PCR) Not Detected (NotDetected) Coronavirus NL63 (PCR) Not Detected (NotDetected) Human Metapneumovir PCR Not Detected (NotDetected) Influenza Type A (PCR) Not Detected (NotDetected) Influenza Type B (PCR) Not Detected (NotDetected) M. pneumoniae (PCR) Not Detected (NotDetected) Parainfluenza 1 (PCR) Not Detected (NotDetected) Parainfluenza 2 (PCR) Not Detected (NotDetected) Parainfluenza 3 (PCR) Not Detected (NotDetected) Parainfluenza 4 (PCR) Not Detected (NotDetected) RSV (PCR) Not Detected (NotDetected) Entero/Rhino (PCR) Not Detected (NotDetected) 10/09/23 Range/Units 15:46 WBC (4.8-10.8) K/ul RBC (4.20-5.40) M/uL Hgb (12.0-16.0) g/dl Hct (37.0-47.0) % MCV (80.0-100.0) fL MCH (25.0-34.0) pg MCHC (32.0-36.0) g/dL RDW Std Deviation (36.4-46.3) fL RDW Coeff of Mikayla (11.5-14.5) % Plt Count (130-400) K/uL MPV (9.4-12.4) fL Immature Gran % (Auto) % Neut % (Auto) % Lymph % (Auto) % [place] % (Auto) % Eos % (Auto) % Baso % (Auto) % Neut # (Auto) (1.40-6.50) K/uL Lymph # (Auto) (1.20-3.40) K/uL [place] # (Auto) (0.11-0.59) K/uL Eos # (Auto) (0.00-0.50) K/uL Baso # (Auto) (0.00-0.20) K/uL Immature Gran # (Auto) (0.01-0.20) K/uL Absolute Nucleated RBC (0.00-0.12) K/uL Nucleated RBC % (auto) % Polychromasia Microcytosis Target Cells Ovalocytes Sodium 139 Potassium 4.2 Chloride (98-107) mmol/L Carbon Dioxide (21-32) mmol/L Anion Gap BUN (6-23) mg/dl Creatinine (0.6-1.2) mg/dl Est Cr Clr Drug Dosing ml/min Est GFR ( Amer) ml/min Est GFR (Non-Af Amer) ml/min BUN/Creatinine Ratio (10-20) Glucose (70-99(Fasting)) mg/dl Calcium (8.6-10.3) mg/dl Total Bilirubin (0.2-1.0) mg/dl AST 61 H ALT (7-52) U/L Alkaline Phosphatase (34-104) U/L Total Creatine Kinase 1284 H (26-192) U/L Troponin I High Sens 209.7 H* D (0-14) pg/ml Total Protein (6.0-8.3) gm/dl Albumin (3.4-5.0) gm/dl Globulin (2.5-4.0) gm/dl Albumin/Globulin Ratio (0.9-2) Procalcitonin 0.47 Urine Color Urine Appearance (Clear) Urine pH (4.5-7.5) Ur Specific [place] (1.000-1.030) Urine Protein (Negative) Urine Glucose (UA) (Negative) Urine Ketones (Negative) Urine Blood (Negative) Urine Nitrite (Negative) Urine Bilirubin (Negative) Urine Urobilinogen (Negative) Ur Leukocyte Esterase (Negative) Urine WBC (Auto) (0-5) /hpf Urine RBC (Auto) (0-4) /hpf U Hyaline Cast (Auto) (0-5) /lpf U Epithel Cells (Auto) (0-5) /lpf Urine Bacteria (Auto) (Negative) Adenovirus (PCR) (NotDetected) B. pertussis DNA (PCR) (NotDetected) B.parapertussis DNA PCR (NotDetected) C. pneumoniae DNA (PCR) (NotDetected) Coronavirus OC43 (PCR) (NotDetected) Coronavirus HKU1 (PCR) (NotDetected) Coronavirus 229E (PCR) (NotDetected) SARS-CoV-2 (PCR) (NotDetected) Coronavirus NL63 (PCR) (NotDetected) Human Metapneumovir PCR (NotDetected) Influenza Type A (PCR) (NotDetected) Influenza Type B (PCR) (NotDetected) M. pneumoniae (PCR) (NotDetected) Parainfluenza 1 (PCR) (NotDetected) Parainfluenza 2 (PCR) (NotDetected) Parainfluenza 3 (PCR) (NotDetected) Parainfluenza 4 (PCR) (NotDetected) RSV (PCR) (NotDetected) Entero/Rhino (PCR) (NotDetected) Administered Medications Clonazepam (Clonazepam 0.5 Mg Tab) 0.25 mg PO BID RAMIRO Stop: 11/08/23 20:59 Last Admin: 10/10/23 10:30 Dose: 0.25 mg Documented By: Admin: 10/09/23 20:21 Dose: 0.25 mg Documented By: CARINA Flecainide Acetate (Flecainide Acetate 100 Mg Tablet) 100 mg PO Q12H RAMIRO Stop: 11/08/23 20:59 Last Admin: 10/10/23 10:30 Dose: 100 mg Documented By: Admin: 10/09/23 21:37 Dose: 100 mg Documented By: KIRAN Lactated Ringer's (Lr) 1,000 mls @ 100 mls/hr IV .Q10H RAMIRO Stop: 10/10/23 12:59 Last Admin: 10/10/23 06:08 Dose: 100 mls/hr Documented By: Infusion: 10/10/23 06:08 Dose: Infused Documented By: Admin: 10/09/23 20:21 Dose: 100 mls/hr Documented By: CARINA Doxycycline Hyclate 100 mg/ (Dextrose) 100 mls @ 50 mls/hr IV Q12H RAMIRO Stop: 10/16/23 22:29 Last Admin: 10/10/23 10:42 Dose: 50 mls/hr Documented By: Infusion: 10/10/23 01:06 Dose: Infused Documented By: Admin: 10/09/23 23:02 Dose: 50 mls/hr Documented By: KIRAN Ampicillin Sodium/Sulbactam Sodium 3,000 mg/ Sodium Chloride 100 mls @ 100 mls/hr IV Q6H RAMIRO Stop: 10/16/23 21:44 Last Infusion: 10/10/23 10:16 Dose: Infused Documented By: Admin: 10/10/23 09:20 Dose: 100 mls/hr Documented By: Infusion: 10/10/23 06:28 Dose: Infused Documented By: Admin: 10/10/23 04:45 Dose: 100 mls/hr Documented By: Infusion: 10/10/23 00:14 Dose: Infused Documented By: Admin: 10/09/23 23:02 Dose: 100 mls/hr Documented By: KIRAN Metoprolol Succinate (Metoprolol Succ 50mg Ext Rel Tab) 100 mg PO DAILY RAMIRO Stop: 11/09/23 08:59 Last Admin: 10/10/23 10:30 Dose: 100 mg Documented By: MIO Morphine Sulfate (Morphine Sulfate 2 Mg/Ml Carp) 2 mg IV Q3H PRN PRN Reason: pain (5+) Stop: 10/23/23 16:29 Last Admin: 10/09/23 17:09 Dose: 2 mg Documented By: CRISTIAN Pantoprazole Sodium (Pantoprazole 40 Mg Tab) 40 mg PO BID RAMIRO Stop: 11/08/23 20:59 Last Admin: 10/10/23 10:30 Dose: 40 mg Documented By: Admin: 10/09/23 20:21 Dose: 40 mg Documented By: CARINA Sertraline HCl (Sertraline Hcl 50 Mg Tablet) 50 mg PO DAILY RAMIRO Stop: 11/09/23 08:59 Last Admin: 10/10/23 10:31 Dose: 50 mg Documented By: MIO Discontinued Medications Enoxaparin Sodium (Enoxaparin Inj 40 Mg/0.4 Ml Syr) 40 mg SQ ONCE ONE Stop: 10/09/23 21:01 Last Admin: 10/09/23 21:37 Dose: 40 mg Documented By: KIRAN Flecainide Acetate (Flecainide Acetate 100 Mg Tablet) 100 mg PO NOW STA Stop: 10/09/23 16:22 Last Admin: 10/09/23 17:01 Dose: 100 mg Documented By: CRISTIAN Furosemide (Furosemide 40 Mg/4 Ml Vial) 40 mg IV ONE ONE Stop: 10/09/23 15:28 Last Admin: 10/09/23 16:30 Dose: 40 mg Documented By: KIRAN Acetaminophen (Ofirmev) 1,000 mg in 100 mls @ 400 mls/hr IV NOW STA Stop: 10/09/23 13:20 Last Infusion: 10/09/23 14:33 Dose: Infused Documented By: Admin: 10/09/23 13:20 Dose: 400 mls/hr Documented By: KIRAN Piperacillin Sod/Tazobactam Sod (Zosyn) 4.5 gm in 100 mls @ 200 mls/hr IV NOW ONE Stop: 10/09/23 15:29 Last Infusion: 10/09/23 17:44 Dose: Infused Documented By: [facility] Admin: 10/09/23 15:21 Dose: 200 mls/hr Documented By: KIRAN Lactated Ringer's (Lr) 1,000 mls @ 999 mls/hr IV .Q1H1M ONE Stop: 10/09/23 17:54 Last Infusion: 10/09/23 19:29 Dose: Infused Documented By: Admin: 10/09/23 17:47 Dose: 999 mls/hr Documented By: KIRAN Metoprolol Succinate (Metoprolol Succ 50mg Ext Rel Tab) 100 mg PO NOW STA Stop: 10/09/23 16:22 Last Admin: 10/09/23 17:01 Dose: 100 mg Documented By: CRISTIAN Ondansetron HCl (Ondansetron Inj 2 Mg/Ml 2 Ml Vial) Confirm Administered Dose 4 mg .ROUTE .STK-MED ONE Stop: 10/09/23 17:08 Last Admin: 10/09/23 17:08 Dose: 4 mg Documented By: CRISTIAN Imaging Data Radiologist's Impression: Hip/Pelvis X-Ray 10/09/23 13:06 XR hip RT 2V w pelvis CLINICAL HISTORY: Fall with right hip pain. COMPARISON STUDY: None. FINDINGS: Slightly displaced fracture within the right femoral neck. No dislocation. The visualized pelvic bones are intact. IMPRESSION: Right femoral neck fracture. ACT 112: Negative or not required by law. Electronically signed by: Markus Gongora M.D. 10/09/2023 2:[address] 10/09/23 13:[address] DOSE: HISTORY: Trauma TECHNIQUE: Multiaxial CT images of the cervical spine were performed and reformatted in the sagittal and coronal plane without the use of contrast. A dose lowering technique was utilized adhering to the principles of ALARA. COMPARISON: None. FINDINGS: No fractures. There is 2 mm of anterolisthesis of C4 on C5 likely due to long-standing degenerative change. Moderate degenerative disc disease from C5 through C7 is noted. [id number] facet degenerative changes. Multinodular thyroid gland is noted. Prevertebral soft tissues and the C1-C2 interval are intact. No pneumothorax. IMPRESSION: No fractures within the cervical spine. ACT 112: Negative or not required by law. Electronically signed by: Markus Gongora M.D. 10/09/2023 3:04 PM Chest X-Ray 10/09/23 13:07 XR chest 1V portable HISTORY: sob, hypoxia COMPARISON: 04/22/2023. FINDINGS: Rotated study. No pneumothorax. No pleural effusions. The heart remains enlarged. No evidence for pulmonary edema. Chronic interstitial thickening persists. Bibasilar linear densities favor subsegmental atelectasis. IMPRESSION: No significant change compared to the prior study. No acute process. ACT 112: Negative or not required by law. Electronically signed by: Markus Gongora M.D. 10/09/2023 2:[address] 10/09/23 13:[address] DOSE: HISTORY: Trauma TECHNIQUE: Multiaxial CT images of the head were performed without the use of intravenous contrast. Automated exposure control was utilized for this study. A dose lowering technique was utilized adhering to the principles of ALARA. Comparison: None. Findings: Moderate mucosal thickening within the floor of the right maxillary sinus. The calvarium and skull base are intact. There is no mass, hematoma, midline shift, acute infarct. White matter hypodensity is nonspecific but suggestive of microvascular ischemic change. The ventricles and sulci demonstrate mild age-related involutional changes. Impression: No acute intracranial abnormality. ACT 112: Negative or not required by law. Electronically signed by: Markus Gongora M.D. 10/09/2023 3:[address] 10/09/23 13:[address] DOSE: 3509.39 mGy.cm HISTORY: Trauma TECHNIQUE: Multiaxial CT images of the lumbar spine were performed and reformatted in the sagittal and coronal plane without the use of contrast. A dose lowering technique was utilized adhering to the principles of ALARA. COMPARISON: Chest CT 04/26/2022. FINDINGS: There is an old mild superior endplate compression fracture at L1, unchanged. No associated retropulsion. No acute fractures within the lumbar spine. The visualized sacrum is intact. Mild disc space narrowing at L4-5. Partially visualized cystic lesion at the pancreatic head measuring 2.5 cm. IMPRESSION: 1. No acute fractures within the lumbar spine. 2. Old mild superior endplate compression deformity at L1, unchanged. 3. Partially visualized cystic lesion at the pancreatic head measuring 2.5 cm. 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 Therefore, this is of doubtful current significance given the patient's age. ACT 112: Negative or not required by law. Electronically signed by: Markus Gongora M.D. 10/09/2023 3:[address] 10/09/23 13:[address] DOSE: HISTORY: Trauma TECHNIQUE: Multiaxial CT images of the thoracic spine were performed and reformatted in the sagittal and coronal plane without the use of contrast. A dose lowering technique was utilized adhering to the principles of ALARA. COMPARISON: None. FINDINGS: No fractures. No subluxation. Paraspinal soft tissues are unremarkable. No pneumothorax. Multinodular thyroid gland. Trace bilateral pleural effusions with interlobular septal thickening consistent with pulmonary edema. The heart is enlarged. There are patchy densities within the lungs posteriorly. This reduces pulmonary edema and/or atelectasis. IMPRESSION: 1. No acute fractures within the thoracic spine.. 2. Mild pulmonary edema and trace bilateral pleural effusions. ACT 112: Negative or not required by law. Electronically signed by: Markus Gongora M.D. 10/09/2023 3:08 PM Discharge Plan Visit Data Chief Complaint: Fall ED Provider: Didier Oneil Discharge Problem: Hypoxia, Closed right hip fracture, Rhabdomyolysis, Leukocytosis, Troponin level elevated Discharge Instructions Interventions: ED Discharge Assessment Last Done: 10/09/23 18:54 Discharge Problem: Closed right hip fracture Qualifiers: Encounter type: initial encounter Qualified Code(s): S72.001A - Fracture of unspecified part of neck of right femur, initial encounter for closed fracture Rhabdomyolysis Qualifiers: Encounter type: initial encounter Leukocytosis Qualifiers: Leukocytosis type: unspecified Qualified Code(s): D72.829 - Elevated white blood cell count, unspecified
--- OUTSIDE RECORDS SUMMARY | 2023-10-09 13:00 | External Medical Summary | Summary of Care ---
Author Name Unknown Organization [facility] Address [address] [facility] [place] [address] Phone [phone] Care Team Providers Care Stiff Neck Loader Name Role Phone Olman Vigil MD Primary Care Provider [phone] Reason for Visit * Reason Onset Date Comments Test Results 06/07/2023 Encounter Details Date Type Department Care Team Description 06/07/2023 Telephone Careworks [facility] [address] [place] [address] Ibrahima Membreno PA-C [address] [place] [address] Test Results Allergies Active Allergy Reactions Severity Noted Date Comments Naproxen 02/23/2016 Rash Metronidazole Hcl Rash 02/13/2013 documented as of this encounter (statuses as of 06/07/2023) Medications Medication Sig Dispensed Refills Start Date End Date Status FLECAINIDE ACETATE 100 MG PO TABS 1 tab every 12 hours 0 Active CENTRUM SILVER PO TABS 1 tab daily 0 Active TYLENOL EXTRA STRENGTH 500 MG PO TABS 1 tab 3X daily as needed 0 Active pantoprazole (PROTONIX) 20 MG TBEC 1 tab 1/2 hour before breakfast 3 12/12/2014 Active LORAzepam (ATIVAN) 0.5 MG Tablet Take 1 Tablet by mouth every 6 hours as needed. 0 01/10/2017 Active Potassium Chloride Mone ER 20 MEQ TBCR Take 1 Tablet by mouth in the morning. 4 11/18/2016 Active furosemide (LASIX) 40 MG Tablet Take 1 Tablet by mouth in the morning. 0 12/12/2017 Active amLODIPine (NORVASC) 5 MG Tablet Take 1 Tablet by mouth in the morning and 1 Tablet before bedtime. 0 03/21/2020 Active lisinopril (PRINIVIL) 20 MG Tablet Take 1 Tablet by mouth in the morning and 1 Tablet before bedtime. 0 02/29/2020 Active Metoprolol Succinate 100 MG CS24 Take 1 Tab by mouth daily. 0 Active Apixaban 5 MG Oral Tablet Take 1 Tablet by mouth in the morning and 1 Tablet before bedtime. 0 Active clonazePAM 0.25 MG Oral Tablet Disintegrating (KlonoPIN) DISSOLVE 1 TABLET IN MOUTH TWICE A DAY 0 05/03/2023 Active Sertraline HCl 50 MG Oral Tablet (Zoloft) Take 1 Tablet by mouth at bedtime. 0 05/02/2023 Active Cephalexin 500 MG Oral CapsuleIndications:Ac thomas UTI Take 1 Capsule by mouth in the morning and 1 Capsule before bedtime. Do all this for 7 days. 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 Overview: BCC left neck 02/21 BCC left nose SCC neck documented as of this encounter (statuses as of 06/07/2023) Resolved Problems Problem Noted Date Resolved Date History of squamous cell carcinoma 02/13/2013 02/07/2018 History of basal cell carcinoma 02/13/2013 02/07/2018 Other seborrheic keratosis 02/13/201302/07 documented as of this encounter (statuses as of 06/07/2023) Social History Tobacco Use Types Packs/Day Years Used Date Smoking Tobacco: Never Smokeless Tobacco: Never Alcohol Use Standard Drinks/Week Comments Never 0 (1 standard drink = 0.6 oz pur e alcohol) Sex Assigned at Date Recorded Not on file Job Start Date Occupation Industry Not on file Not on file Not on file documented as of this encounter Miscellaneous Notes * Telephone Encounter - Caridad Perez LPN - 06/07/2023 12:01 PM EDT Patient calling for test results. Per IRAIDA Hayes, Urine culture negative. patient does not need to complete antibiotics if they are not helping. Follow up with PCP documented in this encounter Plan of Treatment Upcoming Encounters Date Type Specialty Care Team Description 06/23/2023 Office Visit Dermatology Adia Castillo MD [address] [place] [address] Health Maintenance Due Date Last Done Comments DXA Scan 1935 Depression Screening, Annual for Pts 12 and Over 1947 DTaP,Tdap,and Td Vaccines (1 - Tdap) 1954 Zoster Vaccines (1 of 2) 1985 Pneumococcal Vaccine: 65+ Years (1 - PCV) 2000 COVID-19 Vaccine (3 - Modern a series) 03/24/2021 01/27/2021, 12/30/2020 Influenza Vaccine (FLU shot) (#1) 2023 GARDASIL-HPV IMMUNIZATION SERIES Aged Out No longer eligible b ased on patient's age to complete this topic Hepatitis B Aged Out No longer eligi ble based on patient's age to complete this topic MENINGOCOCCAL (MENACTRA/MENVEO) Aged Out No longer eligible b ased on patient's age to complete this topic documented as of this encounter Medical Devices Not on filedocumented as of this encounter Care Teams Stiff Neck Loader Relationship Specialty Start Date End Date Olman Vigil MD [address] [place] [address], [place] [address] PCP - General Critical Care Medicine 02/23/16 documented as of this encounter
--- OUTSIDE RECORDS SUMMARY | 2023-10-09 13:00 | External Medical Summary | Summary of Care ---
Author Name Unknown Organization [facility] Address [address] [facility] [place] [address] Phone [phone] Care Team Providers Care Salary And Wage Administrator Name Role Phone Olman Vigil MD Primary Care Provider [phone] Reason for Visit * Reason Onset Date Comments Urinary Tract Infection Symptoms Urinary Tract Infection Symptoms 06/05/2023 Encounter Details Date Type Department Care Team Description 06/05/2023 Convenient Care Visit [facility] [place] [address] Ibrahima Membreno PA-C [address] [place] [address] UTI symptoms*; Acute UTI Allergies Active Allergy Reactions Severity Noted Date Comments Naproxen 02/23/2016 Rash Metronidazole Hcl Rash 02/13/2013 documented as of this encounter (statuses as of 06/05/2023) Medications Medication Sig Dispensed Refills Start Date [...] 0 05/02/2023 Active Cephalexin 500 MG Oral CapsuleIndications:A cute UTI Take 1 Capsule by mouth in the morning and 1 Capsule before bedtime. Do all this for 7 days. 14 Capsule 0 06/05/2023 3 Active XARELTO 20 MG PO TABS Take by mouth. 0 3 Discontinue d(End of Procedure) ClonazePAM 0.125 MG TBDP Take 2 Tablets by mouth in the morning and 2 Tablets before bedtime. 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/07 Overview: BCC left neck 02/21 BCC left nose SCC neck documented as of this encounter (statuses as of 06/05/2023) Resolved Problems Problem Noted Date Resolved Date History of squamous cell carcinoma 02/13/2013 02/07/2018 History of basal cell carcinoma 02/13/2013 02/07/2018 Other seborrheic keratosis 02/13/201302/07 documented as of this encounter (statuses as of 06/05/2023) Social History Tobacco Use Types Packs/Day Years Used Date Smoking Tobacco: Never Smokeless Tobacco: Never Alcohol Use Standard Drinks/Week Comments Never 0 (1 standard drink = 0.6 oz pur e alcohol) Sex Assigned at Date Recorded Not on file Job Start Date Occupation Industry Not on file Not on file Not on file documented as of this encounter Last Filed Vital Signs Vital Sign Reading Time Taken Comments Blood Pressure 118/60 06/05/2023 9:36 AM EDT Pulse 64 06/05/2023 9:36 AM EDT Temperature 36.5 C (97.7 F) 06/05/2023 9:36 AM ED T Respiratory Rate 20 06/05/2023 9:36 AM EDT Oxygen Saturation 95% 06/05/2023 9:36 AM EDT Inhaled Oxygen Concentration - - Weight 83.6 kg (184 lb 3.2 oz) 06/05/2023 9:36 A M EDT Height 165.1 cm (5' 5") 06/05/2023 9:36 AM EDT Body Mass Index 30.65 06/05/2023 9:36 AM EDT documented in this encounter Patient Instructions * Patient Instructions* Ibrahima Membreno PA-C - 06/05/2023 10:46 AM EDT Keflex twice a day for 7 days. Do not stop early. Drink plenty of fluids and increase fluid intake over next 48-72 hours. Take all medications as prescribed, even if you are feeling better sooner so as to reduce risk of reinfection and to reduce the chance of antibiotic resistance developing. We will notify you of your urine culture results. F/U with PCP with no improvement in 3-5 days. Go immediately to the ED with any change or worsening symptoms including chills, fevers, back pain. documented in this encounter Progress Notes * Ibrahima Membreno PA-C - 06/05/2023 10:28 AM EDT Nursing Notes: Martha Shine LPN 06/05/23 0938 Signed Lizette Lynch is a 88 year old female who presents to walk-in clinic today complaining of Chief Complaint Patient presents with Urinary Tract Infection Symptoms Main Symptoms:urinary sx, burning, frequency, urgency Cause: unknown How lon days Tried: nothing Pt accompanied by: self CONVENIENT CARE PROGRESS NOTE Lizette Lynch is a 88 year old female who presents with urinary tract symptoms. Patient was accompanied by Self. HPI: Severity of Symptoms: Moderate Modifying Factors (what was done since onset of Symptoms): none Timing (How often does it occur): constant Quality (Feels Like): low pelvic pressure, 'like I always have to go' Other associated Signs and Symptoms: dysuria, frequency Denies urgency, hematuria, abn vaginal dc, abn back pain, f/s/ch, n/v/d/c (vaginal) She reports a h/o prolapse (unsure if bladder, uterine, or other). Denies h/o nephrolithiasis. Denies concerns for STI ROS: See HPI HISTORY: No past medical history on file. No past surgical history on file. Social History Socioeconomic History Marital status: Single Spouse name: Not on file Number of children: Not on file Years of education: Not on file Highest education level: Not on file Occupational History Not on file Tobacco Use Smoking status: Never Smokeless tobacco: Never Substance and Sexual Activity Alcohol use: Never Drug use: No Sexual activity: Not on file Other Topics Concern Not on file Social History Narrative Not on file Social Determinants of Health Financial Resource Strain: Not on file Food Insecurity: Not on file Transportation Needs: Not on file Physical Activity: Not on file Stress: Not on file Social Connections: Not on file Intimate Partner Violence: Not on file Housing Stability: Not on file Current Outpatient Medications Medication Sig Dispense Refill FLECAINIDE ACETATE 100 MG PO TABS 1 tab every 12 hours CENTRUM SILVER PO TABS 1 tab daily TYLENOL EXTRA STRENGTH 500 MG PO TABS 1 tab 3X daily as needed pantoprazole (PROTONIX) 20 MG TBEC 1 tab 1/2 hour before breakfast 3 LORAzepam (ATIVAN) 0.5 MG Tablet Take 1 Tablet by mouth every 6 hours as needed. 0 Potassium Chloride Mone ER 20 MEQ TBCR Take 1 Tablet by mouth in the morning. 4 furosemide (LASIX) 40 MG Tablet Take 1 Tablet by mouth in the morning. 0 amLODIPine (NORVASC) 5 MG Tablet Take 1 Tablet by mouth in the morning and 1 Tablet before bedtime. lisinopril (PRINIVIL) 20 MG Tablet Take 1 Tablet by mouth in the morning and 1 Tablet before bedtime. Metoprolol Succinate 100 MG CS24 Take 1 Tab by mouth daily. Apixaban 5 MG Oral Tablet Take 1 Tablet by mouth in the morning and 1 Tablet before bedtime. clonazePAM 0.25 MG Oral Tablet Disintegrating (KlonoPIN) DISSOLVE 1 TABLET IN MOUTH TWICE A DAY Sertraline HCl 50 MG Oral Tablet (Zoloft) Take 1 Tablet by mouth at bedtime. Cephalexin 500 MG Oral Capsule Take 1 Capsule by mouth in the morning and 1 Capsule before bedtime. Do all this for 7 days. 14 Capsule 0 No current facility-administered medications for this visit. Review of patient's allergies indicates: Allergen Reactions Aleve [Naproxen] Rash Flagyl [Metronidazole Hcl] Rash No family history on file. OBJECTIVE: BP 118/60 | Pulse 64 | Temp 36.5 C (97.7 F) (Tympanic) | Resp 20 | Ht 1.651 m (5' 5") | Wt 83.6kg (184 lb 3.2 oz) | SpO2 95% | BMI 30.65 kg/m | BSA 1.96 m Wt Readings from Last 1 Encounters: 06/05/23 83.6 kg (184 lb 3.2 oz) General appearance: awake, alert, no apparent distress Abdominal Exam: back: no CVA tenderness and abd: +suprapubic tenderness to palpation, no R/R/G, +BS Respiratory: clear to auscultation, no rhonchi, no wheezes and no crackles Heart: regular rate, regular rhythm, no murmurs , no rubs and no gallops Skin/Integumentary: warm, dry Results for orders placed or performed in visit on 06/05/23 URINALYSIS, POINT OF CARE (ENTER/EDIT) Result Value Ref Range Color, Urine Yellow Yellow or Light Yellow Clarity, Urine Slightly Cloudy Clear Glucose, Urine Negative Negative mg/dL Bilirubin, Urine Negative Negative Ketone, Urine Negative Negative mg/dL Specific [place], Urine 4.010 1.003 - 1.030 Blood, Urine Moderate (A) Negative pH, Urine 7.0 5.0 - 7.5 units Protein, Urine Negative Negative mg/dL Urobilinogen, Urine 0.2 0.2 - 1.0 mg/dL Nitrite, Urine Negative Negative Esterase, Urine Large (A) Negative Patient Instructions Keflex twice a day for 7 days. Do not stop early. Drink plenty of fluids and increase fluid intake over next 48-72 hours. Take all medications as prescribed, even if you are feeling better sooner so as to reduce risk of reinfection and to reduce the chance of antibiotic resistance developing. We will notify you of your urine culture results. F/U with PCP with no improvement in 3-5 days. Go immediately to the ED with any change or worsening symptoms including chills, fevers, back pain. Assessment: UTI symptoms (Primary) - URINALYSIS, POINT OF CARE (ENTER/EDIT) - CULTURE, URINE, QUANTITATIVE Acute UTI - Cephalexin 500 MG Oral Capsule; Take 1 Capsule by mouth in the morning and 1 Capsule before bedtime. Do all this for 7 days. UA, history, and exam consistent with UTI. Will start meds and follow culture Follow Up: Return for Patient to follow up with Primary Care Provider as directed. | For: Patient to follow up with Primary Care Provider as directed Patient goals for plan of care were discussed Ibrahima Membreno PA-C [address] [address] documented in this encounter Nursing Notes * Martha Shine LPN - 06/05/2023 9:34 AM EDT Lizette Lynch is a 88 year old female who presents to walk-in clinic today complaining of Chief Complaint Patient presents with Urinary Tract Infection Symptoms Main Symptoms:urinary sx, burning, frequency, urgency Cause: unknown How lon days Tried: nothing Pt accompanied by: self documented in this encounter Plan of Treatment Upcoming Encounters Date Type Specialty Care Team Description 06/23/2023 Office Visit Dermatology Adia Castillo MD [address] [place] [address], [place] [id number] Pending Results Name Type Priority Associated Diagnoses Date /Time CULTURE, URINE, QUANTITATIVE Lab STAT UTI symptoms 06/05/2023 10:41 AM EDT Health Maintenance Due Date Last Done Comments [...] Not on filedocumented as of this encounter Procedures Procedure Name Priority Date/Time Associated Diagnosis Comments URINALYSIS, POINT OF CARE (ENTER/EDIT) Routine 06/05/2023 UTI symptoms documented in this encounter Results * (ABNORMAL) URINALYSIS, POINT OF CARE (ENTER/EDIT) (06/05/2023) Color, Urine Yellow Yellow or Light Yellow Clarity, Urine Slightly Cloudy Clear Glucose, Urine Negative Negative mg/dL Bilirubin, Urine Negative Negative Ketone, Urine Negative Negative mg/dL Specific [place], Urine 4.010 1.003 - 1.030 Blood, Urine Moderate(A) Negative pH, Urine 7.0 5.0 - 7.5 units Protein, Urine Negative Negative mg/dL Urobilinogen, Urine 0.2 0.2 - 1.0 mg/dL Nitrite, Urine Negative Negative Esterase, Urine Large(A) Negative Urine 06/05/2023 Ibrahima Membreno PA-C LAB POINT O F CARE TEST ENTER/EDIT ORDERABLES documented in this encounter Visit Diagnoses Diagnosis UTI symptoms- Primary Other symptoms involving urinary system Acute UTI Urinary tract infection, site not specified documented in this encounter Care Teams Salary And Wage Administrator Relationship Specialty Start Date End Date Olman Vigil MD [address] [place] [id number] PCP - General Critical Care Medicine 02/23/16 documented as of this encounter
--- OUTSIDE RECORDS SUMMARY | 2023-10-09 13:00 | External Medical Summary ---
Author Name Unknown Address Unknown Organization [id number]:[facility] - [address] [place] [address] Laboratory Report Ordering Provider Test Date Status SETH MARLOW 06/05/2023 10:41:24 Final Observation Date Value Abnormality Reference (Units) Status Bacteria identified in Unspecified specimen by Culture 06/05/2023 10:41:24 No significant growth Final Test: Culture, Urine, Quanti tative
Specimen Source: Urine, Clean Catch
Specimen Type: Urine
Specimen Date: 06/05/2023 10:41 AM
Result Date: 06/06/2023 2:15 PM
Result Status: Final result
Resulting Lab: [facility]
[address]
[place] [address]

CULTURE

No significant growth

null Performing Location [facility] - [address] [place] [address]
--- OUTSIDE RECORDS SUMMARY | 2023-10-09 13:00 | External Medical Summary | Summary of Care ---
Author Name Unknown Organization [facility] Address [address] [place] [facility] [place] [address] Phone [phone] Care Team Providers Care Senior Python Developer Name Role Phone Olman Vigil MD Primary Care Provider [phone] [phone] Reason for Visit * Reason Comments Skin Check Full body skin check Encounter Details Date Type Department Care Team Description 06/23/2023 Office Visit Dermatology [facility] [place] [address] [facility] [place] [address] [facility] [address] [facility] [address] Solar purpura (HCC)*; Skin lesion; History of nonmelanoma skin cancer; Screening exam for skin cancer Allergies Active Allergy Reactions Severity Noted Date Comments Naproxen 02/23/2016 Rash Metronidazole Hcl Rash 02/13/2013 documented as of this encounter (statuses as of 06/27/2023) Medications Medication Sig Dispensed Refills Start Date End Date Status FLECAINIDE ACETATE 100 MG PO TABS 1 tab every 12 hours 0 Active CENTRUM SILVER PO TABS 1 tab daily 0 A ctive TYLENOL EXTRA STRENGTH 500 MG PO TABS [...] by mouth at bedtime. 0 05/02/2023 Active documented as of this encounter (statuses as of 06/27/2023) Active Problems Problem Noted Date History of nonmelanoma skin cancer 02/07 Overview: BCC left neck 02/21 BCC left nose SCC neck documented as of this encounter (statuses as of 06/27/2023) Resolved Problems Problem Noted Date Resolved Date History of squamous cell carcinoma 02/13/2013 02/07/2018 History of basal cell carcinoma 02/13/2013 02/07/2018 Other seborrheic keratosis 02/13/201302/07 documented as of this encounter (statuses as of 06/27/2023) Social History Tobacco Use Types Packs/Day Years Used Date Smoking Tobacco: Never Smokeless Tobacco: Never Alcohol Use Standard Drinks/Week Comments Never 0 (1 standard drink = 0.6 oz pur e alcohol) Sex Assigned at Date Recorded Not on file Job Start Date Occupation Industry Not on file Not on file Not on file documented as of this encounter Patient Instructions * Patient Instructions* Adia Castillo MD - 06/23/2023 1:03 PM EDT SUNSCREEN USE AND SUN PROTECTION: 1. The best protection is sun avoidance. Seek shade if you can, especially between 9am to 5pm (peaksun hours). 2. Use sunscreen with a Sun Protection Factor (SPF) of 30 or more that protects from Ultraviolet A (UVA) and Ultraviolet B (UVB) wavelength light. This is referred to as broad spectrum sun protection. Unfortunately, even though the protection is broad it is not complete, therefore making sun avoidance the best protection. UVB and UVA have both been implicated in causing skin cancers. Older sunscreens only protected from UVB and sunscreens with added UVA protection should contain Titanium dioxide, Zinc oxide, Mexoryl or Parsol 1789, also known as Avobenzone. 3. Use sun protection daily. Apply 20-30 minutes before going out and reapply every 2 hours. No sunscreen is truly water ''proof'' and it will wash away with sweat, swimming and rubbing. 4. Wear tightly woven, loose fitting (cooler) long sleeved clothing, UV-blocking clothing and sun glasses (eyes need protection as well) and wide-brimmed hatwear (no straw hats with holes because light still gets through). HOW TO CHECK YOUR MOLES: 1. Check moles every month and have a relative/friend check your back if possible. The use of a handheld mirror can help as well. The most common place for melanoma in women are the back and legs, and for men is the back. 2. Look for the ABCD's of melanoma: Asymmetry (strange shape - not round or oval), Borders (notched, scalloped or irregular edges), Color (very black or multi-colored), Diameter (size greater than 5mm or the size greater than a pencil eraser). 3. Changes in old moles and growths of new ones in relation to the ABCD's are the most important factors. 4. Some people have many moles that fit the ABCD criteria. At times the best thing is to look for the ''Ugly Duckling'' mole - the one that stands out the most. 5. If there are any questions on a mole please do not hesitate in calling our office at [phone] to have it evaluated. documented in this encounter Progress Notes * Adia Castillo MD - 06/23/2023 12:53 PM EDT SUBJECTIVE: History of Present Illness: Lizette Lynch is a 88 year old female seen today for follow up skin check. She asks about a lesion on her left forearm. 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 Patient reports she had Mohs surgery 2004 on her left nose (appears to be at left alar crease) in [place]. Social Hx: Previously lived in [place], was born in [place], [place] REVIEW OF SYSTEMS: SKIN: No other new or changing moles. HEME/LYMPH: No new or enlarging lumps or bumps. MEDICA TIONS: Current Outpatient Medications Medication Sig Dispense Refill [...] Take 1 Tablet by mouth at bedtime. No current facility-administered medications for this visit. ALLERG IES: Aleve [naproxen] and Flagyl [metronidazole hcl] OBJECTIVE: GEN: Healthy, alert, no distress, appears oriented, pleasant, and cooperative. SKIN: Detailed exam of hair, face including lids and lips, neck, back, chest, abdomen, buttocks, right and left upper extremities, right and left lower extremities including the nails and digits completed and are normal except: 1. Left forearm: ~1.3 cm red to violaceous patch 2. Left upper arm near elbow: ~ 8 mm pink macule ASSESS MENT/PLAN: 1. Deon's purpura, left forearm - benign, reassurance 2. Ddx includes basal cell carcinoma vs actinic keratosis vs telangiectatic patch vs inflammatory lesion, left upper arm near elbow - Lesion photographed, will monitor for now, recheck at next appt 3. History of nonmelanoma skin cancer/Skin cancer screening - Full skin check performed. No evidence of recurrence at previously treated sites of nonmelanoma skin cancer. - Discussed sunscreen/photoprotection. Informational handout reviewing sunscreen/photoprotection and self monitoring for melanoma was provided to patient at today's visit. - return in 1 year or sooner for any new or changing lesions of concern. Follow-up: 1 year The patient was encouraged to contact me with any further questions or concerns. Adia Castillo MD 06/23/2023 documented in this encounter Nursing Notes * Francesca Harrington LPN - 06/23/2023 12:44 PM EDT Patient identified by name and date of . Do you have any concerns about pain management for today's visit? No Living Will or Advance Directive for Health Care as noted on problem list. [facility] is a way you can talk to your provider online through e-mail. Would you like to sign up? I can activate it for you? ALREADY ACTIVE Chief Complaint Patient presents with Skin Check Full body skin check documented in this encounter Plan of Treatment Upcoming Encounters Date Type Specialty Care Team Description 07/12/2024 Office Visit Dermatology Adia Castillo MD [address] [place] [address] Health Maintenance Due Date Last Done Comments [...] Not on filedocumented as of this encounter Visit Diagnoses Diagnosis Solar purpura (HCC)- Primary Other nonthrombocytopenic purpuras Skin lesion Unspecified disorder of skin and subcutaneous tissue History of nonmelanoma skin cancer Personal history of other malignant neoplasm of skin Screening exam for skin cancer Screening for malignant neoplasm of the skin documented in this encounter Care Teams Senior Python Developer Relationship Specialty Start Date End Date Olman Vigil MD [address] [place] [address] PCP - General Critical Care Medicine 02/23/16 documented as of this encounter
--- OUTSIDE RECORDS SUMMARY | 2023-10-09 13:00 | External Medical Summary | Summary of Care ---
Author Name Unknown Organization [facility] Address [address] [facility] [place] [address] Phone [phone] Care Team Providers Care Cook House Supervisor Name Role Phone Olman Vigil MD Primary Care Provider [phone] Encounter Details Date Type Department Care Team Description 06/08/2023 [facility] [address] [place] [address] Ibrahima Membreno PA-C [address] [place] [id number] Allergies Active Allergy Reactions Severity Noted Date Comments Naproxen 02/23/2016 Rash Metronidazole Hcl Rash 02/13/2013 documented as of this encounter (statuses as of 06/08/2023) Medications Medication Sig Dispensed Refills Start Date [...] 05/02/2023 Active Cephalexin 500 MG Oral CapsuleIndications:[place] UTI Take 1 Capsule by mouth in the morning and 1 Capsule before bedtime. Do all this for 7 days. 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 There is minimal bacteria in urine on this test, not a confirmed UTI. Recommend finishing antibiotic if symptoms improving. If not, can discontinue meds. Recommend follow-up with primary care provider for persistent symptoms. Thank you! Ibrahima Membreno PA-C documented in this encounter Plan of Treatment Upcoming Encounters Date Type Specialty Care Team Description 06/23/2023 Office Visit Dermatology Adia Castillo MD [address] [place] [address] Health Maintenance Due Date Last Done Comments [...] filedocumented as of this encounter Care Teams Cook House Supervisor Relationship Specialty Start Date End Date Olman Vigil MD [address] [place] [id number] PCP - General Critical Care Medicine 02/23/16 documented as of this encounter
--- OUTSIDE RECORDS SUMMARY | 2023-10-09 13:00 | External Medical Summary | Summary of Care ---
Author Name Unknown Organization [facility] Address [address] [facility] [place] [address] Phone [phone] Care Team Providers Care Cane Feeder Name Role Phone Olman Vigil MD Primary Care Provider [phone] Encounter Details Date Type Department Care Team Description 06/[facility] [address] [place] [address] Ibrahima Membreno PA-C [address] [employer] [place] [id number] Allergies Active Allergy Reactions Severity Noted Date [...] 05/02/2023 Active Cephalexin 500 MG Oral CapsuleIndications:Ac [place] UTI Take 1 Capsule by mouth in [...] encounter Miscellaneous Notes * Telephone Encounter - Debi Diaz LPN - 06/08/2023 11:25 AM EDT Upon review of chart this information was given to patient by Len Hayes PA-C yesterday with pt voicing understanding. * Telephone Encounter - Ibrahima Membreno PA-C [...] 06/23/2023 Office Visit Dermatology Adia Castillo MD [address] [place] [phone] Health Maintenance Due Date Last Done Comments [...] filedocumented as of this encounter Care Teams Cane Feeder Relationship Specialty Start Date End Date Olman Vigil MD [address] [place] [address], [place] [address] PCP - General Critical Care Medicine 02/23/16 documented as of this encounter
[2023-10-09] MEDS ORDERED: ACETAMINOPHEN 1,000 MG/100 ML VIAL IV STA (13:06)
--- NOTE | 2023-10-09 13:35 | Electrocardiogram Report ---
Test Reason : Blood Pressure : / mmHG Vent. Rate : 078 BPM Atrial Rate : 078 BPM P-R Int : 234 ms QRS Dur : 098 ms QT Int : 394 ms P-R-T Axes : 071 -16 049 degrees QTc Int : 449 ms Sinus rhythm with 1st degree A-V block Incomplete right bundle branch block Minimal voltage criteria for LVH, may be normal variant ( ) Septal infarct , age undetermined Abnormal ECG When compared with ECG of 23-APR-2023 05:34, Incomplete right bundle branch block is now Present Septal infarct is now Present Confirmed by Mejia Bland ([id number]) on 10/09/2023 1:35:00 PM Referred By: Confirmed By:Mejia Bland
[2023-10-09 13:50] LABS: Hematocrit (blood only) 45.1 % (37.0-47.0); Hemoglobin 14.1 g/dl (12.0-16.0); Mean Corpuscular Hgb Conc 31.3 g/dL (32.0-36.0); Mean Corpuscular Volume 67.1 fL (80.0-100.0); Mean Platelet Volume 10.4 fL (9.4-12.4); Nucleated RBC # (auto) 0.03 K/uL (0.00-0.12); Nucleated RBC % (auto) 0.1 %; Platelet Count 202 K/uL (130-400); RDW Coefficient of Variation 17.4 % (11.5-14.5); RDW Standard Deviation 34.9 fL (36.4-46.3); Red Blood Count 6.72 M/uL (4.20-5.40)
[2023-10-09 14:09] LABS: Alanine Aminotransferase 27 U/L (7-52); Albumin Globulin Ratio 1.6 (0.9-2); Albumin Level 4.4 gm/dl (3.4-5.0); Alkaline Phosphatase 75 U/L (34-104); BUN Creatinine Ratio 23.3 (10-20); Bilirubin,Total 2.1 mg/dl (0.2-1.0); Blood Urea Nitrogen 17 mg/dl (6-23); Calcium 9.1 mg/dl (8.6-10.3); Carbon Dioxide 25 mmol/L (21-32); Chloride 103 mmol/L (98-107); Creatinine Clr Calc Pharmacy 57.8 ml/min; Est GFR (African American) 85.2 ml/min; Est GFR (Non-African American) 73.5 ml/min; Globulin 2.8 gm/dl (2.5-4.0); Glucose 143 mg/dl (70-99(Fasting)); Total Protein 7.2 gm/dl (6.0-8.3); Troponin I High Sensitivity 157.8 pg/ml (0-14)
--- NOTE | 2023-10-09 14:18 | XRay Report ---
XR chest 1V portable HISTORY: sob, hypoxia COMPARISON: 04/22/2023. FINDINGS: Rotated study. No pneumothorax. No pleural effusions. The heart remains enlarged. No eviden ce for pulmonary edema. Chronic interstitial thickening persists. Bibasilar linear densities favor padilla bsegmental atelectasis. IMPRESSION: No significant change compared to the prior study. No acute process. ACT 112: Negative or not required by law. Electronically signed by: Markus Gongora M.D. 10/09/2023 2:16 PM
--- NOTE | 2023-10-09 14:18 | XRay Report ---
XR hip RT 2V w pelvis CLINICAL HISTORY: Fall with right hip pain. COMPARISON STUDY: None. FINDINGS: Slightly displaced fracture within the right femoral neck. No dislocation. The visualized p elvic bones are intact. IMPRESSION: Right femoral neck fracture. ACT 112: Negative or not required by law. Electronically signed by: Markus Gongora M.D. 10/09/2023 2:17 PM
[2023-10-09 14:26] LABS: Basophils # (auto) 0.07 K/uL (0.00-0.20); Basophils % (auto) 0.3 %; Eosinophils # (auto) 0.01 K/uL (0.00-0.50); Immature Granulocytes # (auto) 0.21 K/uL (0.01-0.20); Immature Granulocytes % (auto) 0.9 %; Lymphocytes # (auto) 1.33 K/uL (1.20-3.40); Lymphocytes % (auto) 5.8 %; Microcytosis Present; Monocytes # (auto) 1.58 K/uL (0.11-0.59); Monocytes % (auto) 6.9 %; Neutrophils % (auto) 86.1 %; Ovalocytes 1+; Polychromasia 1+; Target Cells 1+
[2023-10-09 14:47] LABS: Adenovirus PCR Not Detected (NotDetected); Bordetella parapertussis PCR Not Detected (NotDetected); Bordetella pertussis PCR Not Detected (NotDetected); Chlamydia pneumoniae PCR Not Detected (NotDetected); Coronavirus 229E PCR Not Detected (NotDetected); Coronavirus CoV-2 (COVID19)PCR Not Detected (NotDetected); Coronavirus HKU1 PCR Not Detected (NotDetected); Coronavirus NL63 PCR Not Detected (NotDetected); Coronavirus OC43PCR Not Detected (NotDetected); Human Metapneumovirus PCR Not Detected (NotDetected); Influenza A PCR Not Detected (NotDetected); Influenza B PCR Not Detected (NotDetected); Mycoplasma pneumoniae PCR Not Detected (NotDetected); Parainfluenza Virus 1 PCR Not Detected (NotDetected); Parainfluenza Virus 2 PCR Not Detected (NotDetected); Parainfluenza Virus 3 PCR Not Detected (NotDetected); Parainfluenza Virus 4 PCR Not Detected (NotDetected); Respiratory Syncytial VirusPCR Not Detected (NotDetected); Rhinovirus/Enterovirus PCR Not Detected (NotDetected)
[2023-10-09] MEDS ORDERED: PIPERACILLIN/TAZOBACTAM 4.5 GM/100 ML BAG IV ONE (15:00)
--- NOTE | 2023-10-09 15:03 | CT Scan Report ---
HEAD CT NONCONTRAST CT DOSE: HISTORY: Trauma TECHNIQUE: Multiaxial CT images of the head were performed without the use of intravenous contrast. A utomated exposure control was utilized for this study. A dose lowering technique was utilized adheri ng to the principles of ALARA. Comparison: None. Findings: Moderate mucosal thickening within the floor of the right maxillary sinus. The calvarium an d skull base are intact. There is no mass, hematoma, midline shift, acute infarct. White matter hypod ensity is nonspecific but suggestive of microvascular ischemic change. The ventricles and sulci demon strate mild age-related involutional changes. Impression: No acute intracranial abnormality. ACT 112: Negative or not required by law. Electronically signed by: Markus Gongora M.D. 10/09/2023 3:01 PM
--- NOTE | 2023-10-09 15:07 | CT Scan Report ---
CERVICAL SPINE CT CT DOSE: HISTORY: Trauma TECHNIQUE: Multiaxial CT images of the cervical spine were performed and reformatted in the sagittal and coronal plane without the use of contrast. A dose lowering technique was utilized adhering to e principles of ALARA. COMPARISON: None. FINDINGS: No fractures. There is 2 mm of anterolisthesis of C4 on C5 likely due to long-standing dege nerative change. Moderate degenerative disc disease from C5 through C7 is noted. [id number] fac et degenerative changes. Multinodular thyroid gland is noted. Prevertebral soft tissues and the C1-C2 interval are intact. No pneumothorax. IMPRESSION: No fractures within the cervical spine. ACT 112: Negative or not required by law. Electronically signed by: Markus Gongora M.D. 10/09/2023 3:04 PM
--- NOTE | 2023-10-09 15:11 | CT Scan Report ---
THORACIC SPINE CT CT DOSE: HISTORY: Trauma TECHNIQUE: Multiaxial CT images of the thoracic spine were performed and reformatted in the sagittal and coronal plane without the use of contrast. A dose lowering technique was utilized adhering to th e principles of ALARA. COMPARISON: None. FINDINGS: No fractures. No subluxation. Paraspinal soft tissues are unremarkable. No pneumothorax. M ultinodular thyroid gland. Trace bilateral pleural effusions with interlobular septal thickening cons istent with pulmonary edema. The heart is enlarged. There are patchy densities within the lungs poste riorly. This reduces pulmonary edema and/or atelectasis. IMPRESSION: 1. No acute fractures within the thoracic spine.. 2. Mild pulmonary edema and trace bilateral pleural effusions. ACT 112: Negative or not required by law. Electronically signed by: Markus Gongora M.D. 10/09/2023 3:08 PM
[2023-10-09 15:12] LABS: Appearance Urine Clear (Clear); Bacteria Urine Automated Negative (Negative); Bilirubin Urine Negative (Negative); Blood Urine 2+ (Negative); Cast Urine Automated 0 /lpf (0-5); Color Urine Yellow; Glucose Urine UA Negative (Negative); Ketones Urine 1+ (Negative); Leukocyte Esterase Urine Negative (Negative); Nitrite Urine Negative (Negative); Protein Urine 2+ (Negative); Urobilinogen Urine Negative (Negative); pH Urine 6.5 (4.5-7.5)
--- NOTE | 2023-10-09 15:13 | CT Scan Report ---
LUMBAR SPINE CT CT DOSE: 3509.39 mGy.cm HISTORY: Trauma TECHNIQUE: Multiaxial CT images of the lumbar spine were performed and reformatted in the sagittal an d coronal plane without the use of contrast. A dose lowering technique was utilized adhering to the principles of ALARA. COMPARISON: Chest CT 04/26/2022. FINDINGS: There is an old mild superior endplate compression fracture at L1, unchanged. No associated retropulsion. No acute fractures within the lumbar spine. The visualized sacrum is intact. Mild disc space narrowing at L4-5. Partially visualized cystic lesion at the pancreatic head measuring 2.5 cm. IMPRESSION: 1. No acute fractures within the lumbar spine. 2. Old mild superior endplate compression deformity at L1, unchanged. 3. Partially visualized cystic lesion at the pancreatic head measuring 2.5 cm. 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 Therefore, this is of doubtful current significance giv en the patient's age. ACT 112: Negative or not required by law. Electronically signed by: Markus Gongora M.D. 10/09/2023 3:11 PM
[2023-10-09] MEDS ORDERED: FUROSEMIDE 40 MG/4 ML VIAL IV ONE (15:27)
--- NOTE | 2023-10-09 15:51 | History & Physical Report ---
Date of Service October 09, 2023 Assessment & Plan (1) Fall: Plan: -Admit to med/tele on pulse oximetry -Currently hemodynamically stable and stable on 6L oxymask -Patient sustained a mechanical fall in the late morning on 10/08 while attempting to sit on a chair in her living room -Patient denies symptoms such as chest pain, palpitations, lightheadedness/dizziness prior to her fall -Per the history from the patient and her daughter, the patient was likely on the ground for approximately 24 hours prior to being found on the ground by her daughter -Only signs of trauma at this time are her right hip fracture and bruising over the dorsum of the left foot -Patient appears dehydrated on exam, did receive 40 mg IV lasix in the ED as the CT of the thoracic spine noted mild pulmonary edema and trace BL pleural effusions -Holding Eliquis as she will be going to the OR with orthopedics during this admission -Pain control with prn morphine for now with development of rhabdomyolysis on initial labs -Will obtain xray of the left food with her fall and new bruising -Spoke with Orthopedics, ok for chemical DVT PPX tonight, they may be able to take her to the OR tomorrow if stable -Will give 40 meq SQ Lovenox tonight for DVT PPX, BL ADELINA's as well -HH diet then NPO at midnight -AM CBC, CMP, Mag, PT/INR (2) Troponin level elevated: Plan: -Initial high sen trop elevated at 157 ---> 209 on 2 hour repeat -Initial CK level elevated at 1284 -Patient denies chest pain -ECG shows possible RBBB with ST depression in the anterior leads -Likely due to demand from falling and being on the ground for approximately 24 hours -Will continue to trend high sen trop q6h moving forward and monitor on tele -Will obtain TTE tomorrow as [employer] have left for the day -If the patient would develop chest pain or have significant troponin elevations will speak with cardiology and likely start heparin drip (3) Hypoxia: Plan: -Patient was reportedly hypoxic for EMS on arrival -No sign of pneumonia on CXR, no respiratory distress on admission -CT of the thoracic spine mentions mild pulmonary edema and small BL pleural effusions, lung exam is essentially clear -Likely due to the patient taking shallow breaths while laying flat -Patient also mentions that she is often started on O2 while admitted and sleeping, likely has some component of EDGAR and/or obesity hypoventilation syndrome -Incentive spirometry, flutter therapy, prn O2 to [place] SpO2 at or above 94% (4) Leukocytosis: Plan: -Patient with WBC of 22 with neutrophil predominance of 19 -Patient has been afebrile, chest xray negative for consolidation, UA does not appear infectious, no other symptoms or physical exam findings to suggest acute infection -Like reactive from her fall and being on the ground for approximately 24 hours -S/P one dose of Zosyn in the ED -Will obtain blood cultures on admission, unfortunately she was given Zosyn and no blood cultures were obtain in the ED -Will hold additional abx at this time and monitor fever curve and blood cultures (5) Closed right hip fracture: Plan: -Noted on xray of the right hip/pelvis today -Orthopedics is following, will likely take her to the OR tomorrow vs Tuesday depending on stability and OR scheduled -Will give 40 mg SQ lovenox tonight for chemical DVT PPX -Holding Eliquis in preparation for OR -Fall precautions, PT/OT consults -PRN morphine for pain, will hold tylenol for now until we determine how severe her Rhabdomyolysis is (6) Rhabdomyolysis: Plan: -Initial CK elevated at 1284 -Renal function currently stable -Total bili at 2.1 and AST at 61, other LFT's are WNL -Will give 1L LR bolus on admission and continue light IV hydration overnight -Will repeat CMP and CK tonight with next troponin level and am CK level (7) (HFpEF) heart failure with preserved ejection fraction: Plan: -Patient appears dehydrated on exam despite mild pulmonary edema and small BL pleural effusions on thoracic spine CT -No significant fluid on auscultation of lungs on admission -At this time we will start IV fluids for dehydration and mild rhabdomyolysis but will monitor respiratory status closely with continuous pulse oximetry -Will obtain BNP on admission for further evaluation -S/P 40 mg IV lasix in the ED, will hold additional diuretics at this time (8) Hypertension: Plan: -Stable -Will continue home metoprolol, mainly for afib -Will hold home amlodipine and lisinopril for now with her dehydration and rhabdomyolysis (9) Paroxysmal atrial fibrillation: Plan: -Currently in NSR with HR in the 80's -Continue metoprolol and flecainide, will given am doses now -Holding eliquis with OR with ortho at some point during this admission for right hip fracture repair (10) Pneumonia: Plan The patient was discussed with Dr. Alexandra at the time of the admission History of Present Illness Chief Complaint: Found down at home, hypoxia, right hip pain Primary Care Provider: Olman Vigil MD Lizette is an 88 y/o female w/ PmHx paroxysmal atrial fibrillation on Eliquis, HTN, HFpEF, GERD, arthritis, and anxiety who presented to the [facility] ED on 10/09 via EMS after being found down at home this am. Per the ED staff, EMS found the patient to be hypoxic in the 70's on RA, she was placed on 6L NC prior to arrival. In the ED she remained stable on 6L oxymask and was otherwise stable. Labs were significant for a leukocytosis of 22 with neutrophil predominance of 19, intial high sen trop of 157, UA with 2+ protein, 1+ ketones, 2+ blood, 5-10 RBC's, and 10-20 epithelial cells, full respiratory biofire negative, and with sodium, potassium, and AST too hemolyzed on first draw. CT head, chest xray, and cervical spine CT were read as negative for acute findings. Ct of the thoracic spine was read as "1. No acute fractures within the thoracic spine.2. Mild pulmonary edema and trace bilateral pleural effusions.". Lumbar spine CT was read as "1. No acute fractures within the lumbar spine. 2. Old mild superior endplate compression deformity at L1, unchanged. 3. Partially visualized cystic lesion at the pancreatic head measuring 2.5 cm. 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 Therefore, this is of doubtful current significance given the patient's age.". Xray of the right hip with pelvis was read as "Right femoral neck fracture. ". Prior to admission the patient was given 1gm IV tylenol, a dose of Zosyn, and 40 mg IV lasix. At the time of the exam the patient was lying in bed in no acute distress with her daughter sitting bedside, history was obtained from both. The patient is a resident of the [facility]. She states that she was in her apartment yesterday and was trying to sit on a living room chair to watch TV. She states that she thought the chair was closer than it actually was and only sat on the edge, causing her to fall to the ground and land on her buttoc ks. She denies hitting her head or losing consciousness but was on the ground all night until her daughter found her this am around 1100. She denies recent fever, chills, chest pain, cough, abd pain, nausea, vomiting, diarrhea, dysuria, hematuria, melena, and LE swelling. She has not had any of her home medications since 10/07 as she did not have her am medications prior to her fall yesterday. We discussed code status, the patient wishes to be a DNR/DNI. Her daughter, Liz Lynch [phone], is her POA if she cannot make decisions on her own. Please refer to Dr. Alexandra's attestation for any changes to the treatment plan Allergies Allergy/AdvReac Type Severity Reaction Status Date / Time metronidazole Allergy Intermediate HIVES Verified 10/09/23 16:33 naproxen Allergy Intermediate HIVES Verified 10/09/23 16:33 perflutren [From Flexiroam] AdvReac Back Pain Verified 10/10/23 07:53 Home Medications Medication Instructions Recorded Confirmed Type flecainide 100 mg tablet 100 mg PO Q12H #180 tabs 07/28/19 10/09/23 History furosemide 40 mg tablet 40 mg PO DAILY 07/28/19 10/09/23 History lorazepam 0.5 mg tablet 0.5 mg PO PM PRN Insomnia 07/28/19 10/09/23 History potassium chloride 20 mEq 20 meq PO DAILY 07/28/19 10/09/23 History tablet,extended release multivitamin 1 tab PO QAM 08/27/19 10/09/23 History amlodipine 5 mg tablet (Norvasc) 5 mg PO BID #60 tabs 08/29/19 10/09/23 Rx clonazepam 0.25 mg disintegrating 0.25 mg PO BID #60 tabs 08/29/19 10/09/23 Rx tablet metoprolol succinate 100 mg 100 mg PO DAILY 06/16/21 10/09/23 History tablet,extended release 24 hr (Toprol XL) apixaban 5 mg tablet (Eliquis) 5 mg PO BID #180 tabs 07/21/21 10/09/23 Rx lisinopril 20 mg tablet 20 mg PO BID 04/23/23 10/09/23 History pantoprazole 20 mg tablet,delayed 20 mg PO BID 04/23/23 10/09/23 History release sertraline 50 mg tablet 50 mg PO DAILY 04/23/23 10/09/23 History acetaminophen 500 mg tablet 500 mg PO DIRECTED PRN 10/09/23 10/09/23 History (Tylenol Extra Strength) ARTHRITIS PAIN carboxymethylcellulose 0.5 1 drp ophthalmic (eye) DIRECTED 10/09/23 10/09/23 History %-glycerin 0.9 % eye drops PRN Dry Eyes (Refresh Optive) loperamide 2 mg tablet 2 mg PO DIRECTED PRN Diarrhea 10/09/23 10/09/23 History simethicone 125 mg chewable tablet 125 mg PO DIRECTED PRN GAS 10/09/23 10/09/23 History (Gas-X Extra Strength) RELIEF Past Med/Surg History Medical History Chest pain Paroxysmal atrial fibrillation CHF (congestive heart failure) Chest pain Surgical History History of 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 History of dilatation and curettage x 2 History of hysterectomy with BSO Family History Father , age 60 Colorectal cancer Mother , age 98 Dementia Hypertension Stroke Sister , age 60s Mesothelioma Denies family history of Coronary heart disease AAA (abdominal aortic aneurysm) Social History Smoking Status: Never smoker Second Hand Exposure: No; Do You Dip or Chew Tobacco: No; Hx Alcohol Use: Yes Alcohol type: wine Hx Substance Use: No Preferred Language: Belarusian Communication Ability: Effective Insurance Salesman Required: No Beliefs That Will Affect Care: None marital status: Unknown Current Living Situation: Alone and Prison Current Living Situation Comment: independent living at [facility] in 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 Feels Safe at Home: Yes Safety Concerns: Feels Safe At This Time Assistive Devices: Cane, Glasses and Raised Toilet Seat Physical Exam Physical Exam: Physical Exam: General: In no acute distress, stated age, non-toxic appearing HEENT: Normocephalic, atraumatic, no scleral icterus, pupils around round, symmetrical, and reactive to light, dry mucus membranes, trachea midline, no thyromegaly Chest/Pulm: No respiratory distress, symmetrical chest expansion, decreased breath sounds in the BL lower lung olmos, otherwise CTA Cardiac: RRR, no murmurs noted Abdomen: Negative for ascites and bruising, normoactive bowel sounds, soft, non-tender to palpation throughout Musculoskeletal: No acute trauma on inspection and palpation of the face, head, cervical spine, chest abd, and LLE. Patient with RLE shortened and minimally externally rotated with tenderness to palpation over the right hip, otherwise no acute trauma noted in the RLE Extremities: Radial, dorsalis pedis, and posterior tibial pulses are intact and symmetrical, no edema noted in the BL LE's Skin: Warm, dry, no rashes , lesions, or scars noted Neuro: Alert and oriented to person, place, month, year, and president, no focal defects, CN II-XII tested and intact, no tremors noted Psych: No acute distress, calm and cooperative during the exam Results & Data Results & Data Vital Signs (Past 12 Hours) Vital Signs Temp Pulse Resp BP Pulse Ox O2 Del Method O2 Flow Rate 10/09/23 15:20 79 21 134/58 L 93 Oxymask 6 10/09/23 14:30 75 25 H 92 Nasal Cannula 5 10/09/23 14:00 76 24 92 Nasal Cannula 5 10/09/23 13:40 79 10/09/23 13:10 36.6 C 82 21 155/67 H 91 Nasal Cannula 5 Laboratory Results Abnormal lab results 10/09/23 10/09/23 10/09/23 Range/Units 13:07 14:43 15:46 WBC 22.90 H (4.8-10.8) K/ul RBC 6.72 H (4.20-5.40) M/uL MCV 67.1 L (80.0-100.0) fL MCH 21.0 L (25.0-34.0) pg MCHC 31.3 L (32.0-36.0) g/dL RDW Std Deviation 34.9 L (36.4-46.3) fL RDW Coeff of Mikayla 17.4 H (11.5-14.5) % Neut # (Auto) 19.70 H (1.40-6.50) K/uL [place] # (Auto) 1.58 H (0.11-0.59) K/uL Immature Gran # (Auto) 0.21 H (0.01-0.20) K/uL BUN/Creatinine Ratio 23.3 H (10-20) Glucose 143 H (70-99(Fasting)) mg/dl Total Bilirubin 2.1 H (0.2-1.0) mg/dl AST 61 H (13-39) U/L Total Creatine Kinase 1284 H (26-192) U/L Troponin I High Sens 157.8 H* 209.7 H* D (0-14) pg/ml Urine Protein 2+ H (Negative) Urine Ketones 1+ H (Negative) Urine Blood 2+ H (Negative) Urine RBC (Auto) 5-10 H (0-4) /hpf U Epithel Cells (Auto) 10-20 H (0-5) /lpf Diagnostic Findings Hip/Pelvis X-Ray 10/09/23 13:06 XR hip RT 2V w pelvis CLINICAL HISTORY: Fall with right hip pain. COMPARISON STUDY: None. FINDINGS: Slightly displaced fracture within the right femoral neck. No dislocation. The visualized pelvic bones are intact. IMPRESSION: Right femoral neck fracture. ACT 112: Negative or not required by law. Electronically signed by: Markus Gongora M.D. 10/09/2023 2:[address] 10/09/23 13:[address] DOSE: HISTORY: Trauma TECHNIQUE: Multiaxial CT images of the cervical spine were performed and reformatted in the sagittal and coronal plane without the use of contrast. A dose lowering technique was utilized adhering to the principles of ALARA. COMPARISON: None. FINDINGS: No fractures. There is 2 mm of anterolisthesis of C4 on C5 likely due to long-standing degenerative change. Moderate degenerative disc disease from C5 through C7 is noted. [id number] facet degenerative changes. Multinodular thyroid gland is noted. Prevertebral soft tissues and the C1-C2 interval are intact. No pneumothorax. IMPRESSION: No fractures within the cervical spine. ACT 112: Negative or not required by law. Electronically signed by: Markus Gongora M.D. 10/09/2023 3:04 PM Chest X-Ray 10/09/23 13:07 XR chest 1V portable HISTORY: sob, hypoxia COMPARISON: 04/22/2023. FINDINGS: Rotated study. No pneumothorax. No pleural effusions. The heart remains enlarged. No evidence for pulmonary edema. Chronic interstitial thickening persists. Bibasilar linear densities favor subsegmental atelectasis. IMPRESSION: No significant change compared to the prior study. No acute process. ACT 112: Negative or not required by law. Electronically signed by: Markus Gongora M.D. 10/09/2023 2:[address] 10/09/23 13:[address] DOSE: HISTORY: Trauma TECHNIQUE: Multiaxial CT images of the head were performed without the use of intravenous contrast. Automated exposure control was utilized for this study. A dose lowering technique was utilized adhering to the principles of ALARA. Comparison: None. Findings: Moderate mucosal thickening within the floor of the right maxillary sinus. The calvarium and skull base are intact. There is no mass, hematoma, midline shift, acute infarct. White matter hypodensity is nonspecific but suggestive of microvascular ischemic change. The ventricles and sulci demonstrate mild age-related involutional changes. Impression: No acute intracranial abnormality. ACT 112: Negative or not required by law. Electronically signed by: Markus Gongora M.D. 10/09/2023 3:[address] 10/09/23 13:[address] DOSE: 3509.39 mGy.cm HISTORY: Trauma TECHNIQUE: Multiaxial CT images of the lumbar spine were performed and reformatted in the sagittal and coronal plane without the use of contrast. A dose lowering technique was utilized adhering to the principles of ALARA. COMPARISON: Chest CT 04/26/2022. FINDINGS: There is an old mild superior endplate compression fracture at L1, unchanged. No associated retropulsion. No acute fractures within the lumbar spine. The visualized sacrum is intact. Mild disc space narrowing at L4-5. Partially visualized cystic lesion at the pancreatic head measuring 2.5 cm. IMPRESSION: 1. No acute fractures within the lumbar spine. 2. Old mild superior endplate compression deformity at L1, unchanged. 3. Partially visualized cystic lesion at the pancreatic head measuring 2.5 cm. 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 Therefore, this is of doubtful current significance given the patient's age. ACT 112: Negative or not required by law. Electronically signed by: Markus Gongora M.D. 10/09/2023 3:[address] 10/09/23 13:[address] DOSE: HISTORY: Trauma TECHNIQUE: Multiaxial CT images of the thoracic spine were performed and reformatted in the sagittal and coronal plane without the use of contrast. A dose lowering technique was utilized adhering to the principles of ALARA. COMPARISON: None. FINDINGS: No fractures. No subluxation. Paraspinal soft tissues are unremarkable. No pneumothorax. Multinodular thyroid gland. Trace bilateral pleural effusions with interlobular septal thickening consistent with pulmonary edema. The heart is enlarged. There are patchy densities within the lungs posteriorly. This reduces pulmonary edema and/or atelectasis. IMPRESSION: 1. No acute fractures within the thoracic spine.. 2. Mild pulmonary edema and trace bilateral pleural effusions. ACT 112: Negative or not required by law. Electronically signed by: Markus Gongora M.D. 10/09/2023 3:08 PM ECG Additional Comments: Sinus rhythm with 1st degree A-V block Incomplete right bundle branch block Minimal voltage criteria for LVH, may be normal variant ( ) Septal infarct , age undetermined Abnormal ECG When compared with ECG of 23-APR-2023 05:34, Incomplete right bundle branch block is now Present Septal infarct is now Present Confirmed by Mejia Bland ([id number]) on 10/09/2023 1:35:00 PM Code Status & VTE Plan Code Status Full code VTE Prophylaxis Plan VTE Prophylaxis will be ordered: Yes Supervising Physician Co-Signing Physician Notes I personally saw and examined the patient. I verified all palmer points and agree with Maynor Ramírez PA-C with the following exceptions and/or additions: 88 year old female presents to the ER after a fall onto her right hip after missing her chair. On the floor until this morning. Reports feeling well prior to this without any suspected illness this week. No fever, chills, shortness of breath, cough, sinus pain, chest pain, abdominal pain, urinary symptoms or diarrhea. Did not take any medications last night. O/E HS RRR, no murmurs, Chest CTAB, Abdo SNT, right leg shortened and externally rotated with left 5th toe ecchymosis. 5/5 dorsi/plantar flexion of ankle and sensation intact. Skin intact around right hip. No areas of cellulitis noted. A/P Right femoral neck fracture - patient is not medically optimized for further at this time. consult orthopedics. NPO after midnight for re-evaluation of medical optimization for surgery by medical team tomorrow. Left 5th toe proximal phalanx fracture - no particular intervention for this Suspected pneumonia - this appears to be the most likely source of infection. Fever @ 21:25 therefore started on Unasyn and doxycycline. Zosyn given in the ER prior to blood cultures. Incentive spirometer and flutter valve Mild rhabdomyolysis - mild pulmonary edema on thoracic spine CT therefore will avoid excessive fluids, only mild elevation in CK in addition Elevated troponin - suspect due to rhabdomyolysis, no chest pain or shortness of breath to suggest ACS PG Care Time/CCT Total # of Minutes Spent Total Time Spent with Patient: Total time spent is greater than 50% in coordination of care (as documented) at patient's floor/unit and/or counseling patient: Coding [place] [address] INT INP/OBS CARE 3/75MIN Patient Type Established Medical Decision Making Moderate Complexity Diagnoses Fall W19.XXXA Troponin level elevated R79.89 Hypoxia R09.02 Leukocytosis D72.829 Closed right hip fracture S72.001A Rhabdomyolysis M62.82 (HFpEF) heart failure with preserved ejection fraction I50.30 Hypertension I10 Paroxysmal atrial fibrillation I48.0 Pneumonia J18.9
[2023-10-09] MEDS ORDERED: NALOXONE HCL 0.4 MG/1 ML VIAL/CARP IV PRN ×2 (16:20→18:53)
[2023-10-09] MEDS ORDERED: METOPROLOL SUCC 50MG EXT REL TAB PO STA (16:21)
[2023-10-09] MEDS ORDERED: FLECAINIDE ACETATE 100 MG TABLET PO STA (16:21)
[2023-10-09 16:22] LABS: Potassium 4.2 mmol/L (3.5-5.1)
[2023-10-09 16:32] LABS: Troponin I High Sensitivity 209.7 pg/ml (0-14)
[2023-10-09] MEDS ORDERED: LACTATED RINGER'S 1,000 ML IV ONE (16:54)
[2023-10-09] MEDS ORDERED: ONDANSETRON INJ 2 MG/ML 2 ML VIAL ONE (17:07)
[2023-10-09] MEDS: MoRPHine SULFATE 2 MG/ML CARP IV PRN (17:09)
--- NOTE | 2023-10-09 17:27 | Orthopedic Consultation ---
Date of Consultation October 09, 2023 Assessment & Plan (1) Closed right hip fracture: 88-year-old female with displaced right femoral neck fracture Nonweightbearing right lower extremity Bedrest Pain control DVT prophylaxis Medical management Plan for right hip hemiarthroplasty History of Present Illness Reason for Consultation: Right femoral neck fracture History of Present Illness 88-year-old female is presenting after sustaining ground-level fall onto her right hip with acute complaint of right hip pain. Radiographs were obtained in the emergency department demonstrating a displaced right femoral neck fracture. Patient admitted medical service orthopedics was consulted for operative management. Allergies Allergy/AdvReac Type Severity Reaction Status Date / Time metronidazole Allergy Intermediate HIVES Verified 10/09/23 16:33 naproxen Allergy Intermediate HIVES Verified 10/09/23 16:33 Home Medications Medication Instructions Recorded Confirmed Type flecainide 100 mg tablet 100 mg PO Q12H #180 tabs 07/28/19 10/09/23 History furosemide 40 mg tablet 40 mg PO DAILY 07/28/19 10/09/23 History lorazepam 0.5 mg tablet 0.5 mg PO PM PRN Insomnia 07/28/19 10/09/23 History potassium chloride 20 mEq 20 meq PO DAILY 07/28/19 10/09/23 History tablet,extended release multivitamin 1 tab PO QAM 08/27/19 10/09/23 History amlodipine 5 mg tablet (Norvasc) 5 mg PO BID #60 tabs 08/29/19 10/09/23 Rx clonazepam 0.25 mg disintegrating 0.25 mg PO BID #60 tabs 08/29/19 10/09/23 Rx tablet metoprolol succinate 100 mg 100 mg PO DAILY 06/16/21 10/09/23 History tablet,extended release 24 hr (Toprol XL) apixaban 5 mg tablet (Eliquis) 5 mg PO BID #180 tabs 07/21/21 10/09/23 Rx lisinopril 20 mg tablet 20 mg PO BID 04/23/23 10/09/23 History pantoprazole 20 mg tablet,delayed 20 mg PO BID 04/23/23 10/09/23 History release sertraline 50 mg tablet 50 mg PO DAILY 04/23/23 10/09/23 History acetaminophen 500 mg tablet 500 mg PO DIRECTED PRN 10/09/23 10/09/23 History (Tylenol Extra Strength) ARTHRITIS PAIN carboxymethylcellulose 0.5 1 drp ophthalmic (eye) DIRECTED 10/09/23 10/09/23 History %-glycerin 0.9 % eye drops PRN Dry Eyes (Refresh Optive) loperamide 2 mg tablet 2 mg PO DIRECTED PRN Diarrhea 10/09/23 10/09/23 History simethicone 125 mg chewable tablet 125 mg PO DIRECTED PRN GAS 10/09/23 10/09/23 History (Gas-X Extra Strength) RELIEF Patient History Medical History Chest pain Paroxysmal atrial fibrillation CHF (congestive heart failure) Chest pain Surgical History History of 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 History of dilatation and curettage x 2 History of hysterectomy with BSO Family History Father , age 60 Colorectal cancer Mother , age 98 Dementia Hypertension Stroke Sister , age 60s Mesothelioma Denies family history of Coronary heart disease AAA (abdominal aortic aneurysm) Social History Smoking Status: Never smoker Second Hand Exposure: No; Do You Dip or Chew Tobacco: No; Hx Alcohol Use: No Hx Substance Use: No Preferred Language: Qatari Communication Ability: Effective [employer] Developer Required: No Beliefs That Will Affect Care: None marital status: Unknown Current Living Situation: Personal Care Facility Current Living Situation Comment: [facility] current occupational status: 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 Feels Safe at Home: Yes Assistive Devices: Cane, Glasses and Raised Toilet Seat Physical Exam Constitutional: General: No acute distress, resting in bed Musculoskeletal: Right lower extremity + logroll, unable to SLR - silt s/spn/dpn/t/s - fires ta/ehl/gsc + dp/pt Results & Data Vital Signs (Past 12 Hours) Vital Signs Temp Pulse Resp BP Pulse Ox O2 Del Method O2 Flow Rate 10/09/23 16:30 75 25 H 138/57 L 93 Oxymask 6 10/09/23 16:00 79 24 141/98 H 94 Oxymask 6 10/09/23 15:30 77 24 137/50 L 93 Oxymask 6 10/09/23 15:20 79 21 134/58 L 93 Oxymask 6 10/09/23 14:30 75 25 H 92 Nasal Cannula 5 10/09/23 14:00 76 24 92 Nasal Cannula 5 10/09/23 13:40 79 10/09/23 13:10 36.6 C 82 21 155/67 H 91 Nasal Cannula 5 Diagnostic Findings Right hip radiographs demonstrate a displaced right femoral neck fracture
--- NOTE | 2023-10-09 17:27 | XRay Report ---
LEFT FOOT 3 VIEWS HISTORY: fall, bruising over dorsum of left foot COMPARISON: None. FINDINGS: Only seen on the lateral view there is a possible nondisplaced fracture at the base of the left fifth toe proximal phalanx. This is difficult to assess due to the flexion deformities of the to es. The bones are osteopenic. The Lisfranc joint is aligned. Plantar and posterior calcaneal spurs ar e noted. No radiopaque foreign bodies. IMPRESSION: Possible nondisplaced fracture at the base of the left fifth toe proximal phalanx. Recommend correlat ion for pain at this location to assess for an acute injury. ACT 112: Negative or not required by law. Electronically signed by: Markus Gongora M.D. 10/09/2023 5:25 PM
[2023-10-09] MEDS ORDERED: ALBUT/IPRATROP 3MG/0.5MG NEB 3 ML VIAL NEB PRN (17:59)
[2023-10-09] MEDS ORDERED: bisacodyL 10 MG SUPP PR PRN (18:53)
[2023-10-09] MEDS ORDERED: MAGNESIUM HYDROXIDE SUSP 30 ML UDC PO PRN (18:53)
[2023-10-09] MEDS: clonazePAM 0.5 MG TAB PO SCH (20:21)
[2023-10-09] MEDS: LACTATED RINGER'S 1,000 ML IV SCH (20:21)
[2023-10-09] MEDS: PANTOprazole 40 MG TAB PO SCH (20:21)
[2023-10-09 20:46] LABS: Albumin Globulin Ratio 1.6 (0.9-2); Albumin Level 3.8 gm/dl (3.4-5.0); BUN Creatinine Ratio 22.1 (10-20); Bilirubin,Total 2.2 mg/dl (0.2-1.0); Calcium 8.9 mg/dl (8.6-10.3); Creatinine Clr Calc Pharmacy 54.8 ml/min; Est GFR (African American) 79.9 ml/min; Est GFR (Non-African American) 68.9 ml/min; Globulin 2.4 gm/dl (2.5-4.0); Potassium 3.6 mmol/L (3.5-5.1); Total Protein 6.2 gm/dl (6.0-8.3)
[2023-10-09 20:56] LABS: Troponin I High Sensitivity 223.8 pg/ml (0-14)
[2023-10-09] MEDS ORDERED: ENOXAPARIN INJ 40 MG/0.4 ML SYR SQ ONE (21:00)
[2023-10-09] MEDS: FLECAINIDE ACETATE 100 MG TABLET PO SCH (21:37)
[2023-10-09] MEDS: DOXYCYCLINE HYCLATE 100 MG in DEXTROSE 5% MINI-B 100 ML IV SCH (23:02)
[2023-10-09] MEDS: AMPICILLIN/SULBACTAM SOD 3,000 MG in SODIUM CHLOR 0.9% MINI-B 100 ML IV SCH (23:02)
[2023-10-10 02:54] LABS: Basophils # (auto) 0.04 K/uL (0.00-0.20); Basophils % (auto) 0.2 %; Eosinophils # (auto) 0.02 K/uL (0.00-0.50); Eosinophils % (auto) 0.1 %; Hematocrit (blood only) 37.3 % (37.0-47.0); Hemoglobin 12.2 g/dl (12.0-16.0); Immature Granulocytes # (auto) 0.11 K/uL (0.01-0.20); Immature Granulocytes % (auto) 0.6 %; Lymphocytes # (auto) 1.57 K/uL (1.20-3.40); Lymphocytes % (auto) 8.1 %; Mean Corpuscular Hemoglobin 21.5 pg (25.0-34.0); Mean Corpuscular Hgb Conc 32.7 g/dL (32.0-36.0); Mean Corpuscular Volume 65.7 fL (80.0-100.0); Monocytes # (auto) 1.44 K/uL (0.11-0.59); Monocytes % (auto) 7.4 %; Neutrophils # (auto) 16.21 K/uL (1.40-6.50); Neutrophils % (auto) 83.6 %; RDW Coefficient of Variation 15.7 % (11.5-14.5); RDW Standard Deviation 35.1 fL (36.4-46.3); Red Blood Count 5.68 M/uL (4.20-5.40); White Blood Count 19.39 K/ul (4.8-10.8)
[2023-10-10 03:01] LABS: INR 1.2 (0.9-1.1); Prothrombin Time 12.5 Seconds (9.0-12.0)
[2023-10-10 03:11] LABS: Albumin Globulin Ratio 1.6 (0.9-2); Albumin Level 3.6 gm/dl (3.4-5.0); BUN Creatinine Ratio 20.7 (10-20); Bilirubin,Total 1.9 mg/dl (0.2-1.0); Calcium 8.8 mg/dl (8.6-10.3); Creatinine Clr Calc Pharmacy 48.5 ml/min; Est GFR (African American) 68.9 ml/min; Est GFR (Non-African American) 59.5 ml/min; Globulin 2.3 gm/dl (2.5-4.0); Magnesium 1.8 mg/dl (1.7-2.4); Potassium 3.5 mmol/L (3.5-5.1); Total Protein 5.9 gm/dl (6.0-8.3)
[2023-10-10 03:20] LABS: Mean Platelet Volume 9.8 fL (9.4-12.4); Microcytosis Present; Ovalocytes 1+; Platelet Count 179 K/uL (130-400); Polychromasia 1+
[2023-10-10] MEDS: AMPICILLIN/SULBACTAM SOD 3,000 MG in SODIUM CHLOR 0.9% MINI-B 100 ML IV SCH ×4 (04:45→20:03)
[2023-10-10] MEDS: LACTATED RINGER'S 1,000 ML IV SCH (06:08)
--- NOTE | 2023-10-10 09:59 | Hospitalist Progress Note ---
Date of Service October 10, 2023 Assessment & Plan (1) Fall: Plan: -Patient sustained a mechanical fall in the late morning on 10/08 while attempting to sit on a chair in her living room, was likely on ground for 24 hours before being found by her daughter -Only signs of trauma at this time are her right hip fracture and bruising over the dorsum of the left foot -Xray: Nondisplaced fracture oat the base of fifth proximal phalanx -Received 40 mg IV lasix in the ED as the CT of the thoracic spine noted mild pulmonary edema and trace BL pleural effusions -Consult ortho, appreciate recs - Eliquis on hold, was given Lovenox 10/09 pm - Will take to OR when medically stable -Pain control with prn morphine - recheck CMP AM, consider adding Tylenol (2) Hypoxia: Plan: -Patient was reportedly hypoxic for EMS on arrival -No sign of pneumonia on CXR, no respiratory distress on admission -CT of the thoracic spine mentions mild pulmonary edema and small BL pleural effusions, lung exam is essentially clear -Patient also mentions that she is often started on O2 while admitted and sleeping, likely has some component of EDGAR and/or obesity hypoventilation syndrome -Morning of 10/10 was requiring 9-10L oxymask, no fevers, WBC elevated. - CXR without signs of pneumonia - CTA without PE - Was able to titrate down to 4L later in the day -Incentive spirometry, flutter therapy, prn O2 to keep SpO2 at or above 94% (3) Troponin level elevated: Plan: -Initial high sen trop elevated at 157 ---> 209 on 2 hour repeat, continues to downtrend, most recent 117.2 -Initial CK level elevated at 1284 --> 743 -Patient denies chest pain -ECG shows possible RBBB with ST depression in the anterior leads -Likely due to demand from falling and being on the ground for approximately 24 hours -10/10 Echo: mild LVH, EF 60-65% (4) Leukocytosis: Plan: -Patient with WBC of 22 with neutrophil predominance of 19 on admission -Febrile overnight 10/09 --> will treat as infection - Continue Unasyn and doxycycline -Will obtain blood cultures on admission, unfortunately she was given Zosyn and no blood cultures were obtain in the ED (5) Closed right hip fracture: Plan: -Noted on xray of the right hip/pelvis today -Orthopedics is following, will likely take her to the OR Tuesday depending on stability and OR scheduled -Holding Eliquis in preparation for OR -Fall precautions, PT/OT consults -PRN morphine for pain (6) Rhabdomyolysis: Plan: -Initial CK elevated at 1284 --> 743 -Renal function currently stable, Bili (1.9) and AST (58) improving -Stop IV fluids, at patient is tolerating orals (7) (HFpEF) heart failure with preserved ejection fraction: Plan: -Patient appeared dehydrated on admission despite mild pulmonary edema and small BL pleural effusions on thoracic spine CT - Given 40mg lasix IV in the ED -No significant fluid on auscultation of lungs on admission -IVF for rhabdomyolysis have been stopped. -BNP: 802 -Daily weight (8) Hypertension: Plan: -Stable -Will continue home metoprolol, mainly for afib -Will hold home amlodipine and lisinopril for now with her dehydration and rhabdomyolysis (9) Paroxysmal atrial fibrillation: Plan: -Currently in NSR with HR in the 80's -Continue metoprolol and flecainide, will given am doses now -Holding eliquis with OR with ortho at some point during this admission for right hip fracture repair (10) Pneumonia: Plan Continued inpatient stay Admission and Anticipated Discharge Date Admission Date: October 09, 2023 Subjective 0940 - Patient seen lying in bed. Reports some mild back pain and dry mouth from oxygen mask. Denies any pain in the hip. Reports fall because she missed the chair, just thought it was closer. Has an alert monitor at the [place], but she did not have it on her when she fell. Denies SOB, despite having the increasing O2 needs. Denies CP. Tele - NSR 70s Review of Systems Review of Systems: All systems reviewed & are unremarkable except as noted in Subjective Physical Exam Physical Exam: General: WN/WD, NAD, VS as above Resp: normal respiratory effort, no accessory muscle use, able to speak in full sentences, CTA CV: RRR, no murmur, no edema Abd: normal bowel sounds, non tender, no hepatosplenomegaly Extremities: hematoma over left 5th digit, distal pulses intact bilaterally Neuro: A&O x3, Skin: intact, no lesions noted Results & Data Results & Data Vital Signs (Past 12 Hours) Vital Signs Pulse Pulse Resp BP Pulse Ox O2 Del Method O2 Flow Rate 10/10/23 07:54 Oxymask 10 10/10/23 07:54 70 16 134/66 94 Oxymask 10 10/10/23 06:59 68 10/10/23 03:00 71 20 131/66 92 Oxymask 10 10/10/23 00:30 75 10/09/23 23:52 15 10/09/23 23:50 75 23 92 10/09/23 23:40 75 21 91 10/09/23 23:30 74 22 92 10/09/23 23:20 76 22 93 10/09/23 23:10 76 21 93 10/09/23 23:00 78 22 92 10/09/23 22:50 76 22 93 10/09/23 22:40 77 21 93 10/09/23 22:30 76 22 92 10/09/23 22:24 Oxymask 10 10/09/23 22:24 15 10/09/23 22:20 76 22 92 10/09/23 22:10 76 22 93 10/09/23 22:00 77 20 92 Medications Administered CBC, CMP, Trop, PT/INR reviewed PG Care Time/CCT Total # of Minutes Spent Total Time Spent with Patient: Total time spent is greater than 50% in coordination of care (as documented) at patient's floor/unit and/or counseling patient: Coding Level of Care Code 20535 SUB INP/OBS CARE 3/50MIN Diagnoses Fall W19.XXXA Hypoxia R09.02 Troponin level elevated R79.89 Leukocytosis D72.829 Closed right hip fracture S72.001A Rhabdomyolysis M62.82 (HFpEF) heart failure with preserved ejection fraction I50.30 Hypertension I10 Paroxysmal atrial fibrillation I48.0 Pneumonia J18.9
[2023-10-10] MEDS: PANTOprazole 40 MG TAB PO SCH ×2 (10:30→20:03)
[2023-10-10] MEDS: METOPROLOL SUCC 50MG EXT REL TAB PO SCH (10:30)
[2023-10-10] MEDS: FLECAINIDE ACETATE 100 MG TABLET PO SCH ×2 (10:30→20:02)
[2023-10-10] MEDS: clonazePAM 0.5 MG TAB PO SCH ×2 (10:30→20:02)
[2023-10-10] MEDS: SERTRALINE HCL 50 MG TABLET PO SCH (10:31)
--- NOTE | 2023-10-10 10:33 | XRay Report ---
XR chest 1V portable CLINICAL HISTORY: increasing O2 needs TECHNIQUE: Single frontal radiograph of the chest was obtained. Comparison: Comparison is made to chest radiograph 10/09/2023 FINDINGS: No lines and tubes are seen. Calcified aortic knob is seen. The lungs are clear. No evidence of pleur al effusion or pneumothorax. IMPRESSION: No acute chest disease. Cardiomegaly is noted. ACT 112: Negative or not required by law. Electronically signed by: Gio Sawant M.D. 10/10/2023 10:31 AM
[2023-10-10] MEDS: DOXYCYCLINE HYCLATE 100 MG in DEXTROSE 5% MINI-B 100 ML IV SCH ×2 (10:42→21:31)
--- NOTE | 2023-10-10 11:21 | XCELERA ---
[id number]
[2023-10-10] MEDS ORDERED: OPTIRAY 320 125ml IV ONE (13:23)
[2023-10-10] MEDS: CHOLECALCIFEROL 1,000 UNITS 25 MCG TAB PO SCH (13:33)
--- NOTE | 2023-10-10 13:48 | CT Scan Report ---
CT angio chest PE protocol CLINICAL HISTORY: PE TECHNIQUE: Multidetector row helical CT of the chest was performed with angiographic protocol. Palacio l and sagittal reformations were obtained. Coronal and sagittal MIPS were obtained from the axial jewel a set and were submitted for review. Automated dose lowering techniques and/or adjustment according to patient size were utilized for this exam. CT DOSE: 765.13 mGy.cm Comparison: Comparison is made to CT chest 04/26/2022 FINDINGS: Lungs and pleura: There is a 5 mm nodule in the right upper lobe (series 4 image 69). There is trace bilateral pleural effusion with underlying atelectasis. Heart and pericardium: Cardiomegaly is seen with biatrial enlargement. Vessels: No evidence of pulmonary embolism. Mediastinum and sherrie: Unremarkable. Chest wall and lower neck: Small thyroid nodules are noted which do not require follow-up by ACR favio alvarado. Abdomen: Unremarkable. Bones: Degenerative changes in the thoracic spine. IMPRESSION: 1. No acute abnormality and in particular no evidence of pulmonary embolus. 2. Atelectasis and trace bilateral pleural effusions. ACT 112: Negative or not required by law. Electronically signed by: Gio Sawant M.D. 10/10/2023 1:46 PM
[2023-10-10] MEDS: ONDANSETRON INJ 2 MG/ML 2 ML VIAL IV PRN ×2 (13:51→17:26)
[2023-10-10] MEDS: MoRPHine SULFATE 2 MG/ML CARP IV PRN ×2 (13:51→17:18)
[2023-10-10] MEDS ORDERED: ACETAMINOPHEN 500 MG TAB PO PRN (17:09)
[2023-10-10] MEDS ORDERED: HYDROmorphone INJ 0.5 MG/0.5 ML SYR IV STA (19:18)
[2023-10-10] MEDS ORDERED: ENOXAPARIN INJ 40 MG/0.4 ML SYR SQ ONE (21:00)
[2023-10-11 02:21] LABS: Basophils # (auto) 0.04 K/uL (0.00-0.20); Basophils % (auto) 0.3 %; Eosinophils # (auto) 0.34 K/uL (0.00-0.50); Eosinophils % (auto) 2.6 %; Hematocrit (blood only) 36.1 % (37.0-47.0); Hemoglobin 10.9 g/dl (12.0-16.0); Immature Granulocytes # (auto) 0.07 K/uL (0.01-0.20); Immature Granulocytes % (auto) 0.5 %; Lymphocytes # (auto) 1.44 K/uL (1.20-3.40); Lymphocytes % (auto) 10.8 %; Mean Corpuscular Hemoglobin 20.8 pg (25.0-34.0); Mean Corpuscular Hgb Conc 30.2 g/dL (32.0-36.0); Mean Corpuscular Volume 68.8 fL (80.0-100.0); Monocytes # (auto) 1.29 K/uL (0.11-0.59); Monocytes % (auto) 9.7 %; Neutrophils % (auto) 76.1 %; RDW Coefficient of Variation 15.5 % (11.5-14.5); RDW Standard Deviation 37.5 fL (36.4-46.3); Red Blood Count 5.25 M/uL (4.20-5.40); White Blood Count 13.28 K/ul (4.8-10.8)
[2023-10-11 02:24] LABS: Albumin Globulin Ratio 1.3 (0.9-2); Albumin Level 3.2 gm/dl (3.4-5.0); BUN Creatinine Ratio 24.6 (10-20); Bilirubin,Total 1.1 mg/dl (0.2-1.0); Calcium 8.6 mg/dl (8.6-10.3); Est GFR (African American) 93.8 ml/min; Est GFR (Non-African American) 80.9 ml/min; Globulin 2.4 gm/dl (2.5-4.0); Potassium 3.5 mmol/L (3.5-5.1); Total Protein 5.6 gm/dl (6.0-8.3)
[2023-10-11 02:41] LABS: Mean Platelet Volume 9.7 fL (9.4-12.4); Microcytosis Present; Ovalocytes 1+; Platelet Count 148 K/uL (130-400); Polychromasia 1+
[2023-10-11 02:42] LABS: Prothrombin Time 11.4 Seconds (9.0-12.0)
[2023-10-11] MEDS: AMPICILLIN/SULBACTAM SOD 3,000 MG in SODIUM CHLOR 0.9% MINI-B 100 ML IV SCH ×4 (05:07→20:06)
[2023-10-11] MEDS: MoRPHine SULFATE 2 MG/ML CARP IV PRN ×4 (05:50→20:06)
[2023-10-11] MEDS: ONDANSETRON INJ 2 MG/ML 2 ML VIAL IV PRN (09:25)
[2023-10-11] MEDS: SERTRALINE HCL 50 MG TABLET PO SCH (09:27)
[2023-10-11] MEDS: PANTOprazole 40 MG TAB PO SCH ×2 (09:27→20:05)
[2023-10-11] MEDS: FLECAINIDE ACETATE 100 MG TABLET PO SCH ×3 (09:29→20:05)
[2023-10-11] MEDS: CHOLECALCIFEROL 1,000 UNITS 25 MCG TAB PO SCH ×2 (09:30→09:37)
[2023-10-11] MEDS: clonazePAM 0.5 MG TAB PO SCH ×2 (09:30→20:05)
[2023-10-11] MEDS: METOPROLOL SUCC 50MG EXT REL TAB PO SCH (09:31)
[2023-10-11] MEDS: DOXYCYCLINE HYCLATE 100 MG in DEXTROSE 5% MINI-B 100 ML IV SCH ×2 (09:31→23:13)
--- NOTE | 2023-10-11 11:41 | Hospitalist Progress Note ---
Date of Service October 11, 2023 Assessment & Plan (1) Fall: Plan: -Patient sustained a mechanical fall in the late morning on 10/08 while attempting to sit on a chair in her living room, was likely on ground for 24 hours before being found by her daughter -Only signs of trauma at this time are her right hip fracture and bruising over the dorsum of the left foot -Xray: Nondisplaced fracture at the base of fifth proximal phalanx -Received 40 mg IV lasix in the ED as the CT of the thoracic spine noted mild pulmonary edema and trace BL pleural effusions -Consult ortho, appreciate recs - Eliquis on hold, was given Lovenox 10/10 pm - Medically stable for OR - plan to go to OR with Dr. Flanagan 10/11 -Pain control with prn tylenol and morphine (2) Hypoxia: Plan: -Patient was reportedly hypoxic for EMS on arrival -No sign of pneumonia on CXR, no respiratory distress on admission -10/09: CT of the thoracic spine mentions mild pulmonary edema and small BL pleural effusions, lung exam is essentially clear -Patient also mentions that she is often started on O2 while admitted and sleeping, likely has some component of EDGAR and/or obesity hypoventilation synd ashley -10/10: CXR without signs of pneumonia, CTA without PE -Currently on 5L -Incentive spirometry, flutter therapy, prn O2 to keep SpO2 at or above 94% (3) Leukocytosis: Plan: -Patient with WBC of 22 with neutrophil predominance of 19 on admission -Febrile overnight 10/09 --> will treat as infection - Continue Unasyn and doxycycline - WBC downtrending -Will obtain blood cultures on admission, unfortunately she was given Zosyn and no blood cultures were obtain in the ED -No growth at 24 hours (4) Closed right hip fracture: Plan: -Noted on xray of the right hip/pelvis 10/09 -Orthopedics is following, medically stable for OR, scheduled for 10/11 -Holding Eliquis in preparation for OR -Fall precautions, PT/OT consults after surgery -10/11: Vit D level: 15.7, 2000 units daily ordered -PRN tylenol and morphine for pain (5) Troponin level elevated: Plan: -Initial high sen trop elevated at 157 ---> 209 on 2 hour repeat, continues to downtrend, most recent 117.2 -Initial CK level elevated at 1284 --> 743 -Patient denies chest pain -ECG shows possible RBBB with ST depression in the anterior leads -Likely due to demand from falling and being on the ground for approximately 24 hours -10/10 Echo: mild LVH, EF 60-65% (6) Rhabdomyolysis: Plan: -Initial CK elevated at 1284 --> 743 -Improved - renal function and LFTs WNLs (7) (HFpEF) heart failure with preserved ejection fraction: Plan: -Patient appeared dehydrated on admission despite mild pulmonary edema and small BL pleural effusions on thoracic spine CT - Given 40mg lasix IV in the ED -No significant fluid on auscultation of lungs on admission -IVF for rhabdomyolysis have been stopped. Continues to look euvolemic -BNP: 802 -Daily weight (8) Hypertension: Plan: -Stable -Will continue home metoprolol, mainly for afib -Home amlodipine and lisinopril initially held in the setting of dehydration and rhabdomyolysis - will continue to hold as pressures have been stable without (9) Paroxysmal atrial fibrillation: Plan: -Currently in NSR with HR in the 80's -Continue metoprolol and flecainide -Holding Eliquis with awaiting OR w for right hip fracture repair (10) Pneumonia: Plan: suspect cause of hypoxia, see above continue Doxycycline and Unasyn Plan Continued inpatient stay Admission and Anticipated Discharge Date Admission Date: October 09, 2023 Subjective Patient sitting up in bed. Reports pain in left hip after movement in bed, but responding well to pain medications. Denies shortness of breath, has been using IS. Reports being hungry. Is hoping surgery can be done soon so she doesn't have to keep worrying about it. She has not had a BM since admission. Denies CP. Tele: NSR 60-70s Review of Systems Review of Systems: All systems reviewed & are unremarkable except as noted in Subjective Physical Exam Physical Exam: General: WN/WD, NAD, VS as above Resp: normal respiratory effort, no accessory muscle use, able to speak in full sentences, CTA CV: RRR, no murmur, no edema Abd: normal bowel sounds, non tender, no hepatosplenomegaly Extremities: hematoma over left 5th digit, distal pulses intact bilaterally Neuro: A&O x3, Skin: intact, bruising as above Results & Data Results & Data Vital Signs (Past 12 Hours) Vital Signs Temp Pulse Pulse Resp BP Pulse Ox O2 Del Method 10/11/23 11:12 36.4 C L 63 18 126/68 91 Nasal Cannula 10/11/23 07:40 36.7 C 63 18 126/70 93 Nasal Cannula 10/11/23 03:47 36.7 C 64 18 126/70 94 Nasal Cannula 10/11/23 01:45 66 O2 Flow Rate 10/11/23 11:12 6 10/11/23 07:40 6 10/11/23 03:47 2 10/11/23 01:45 Laboratory Results CBC, chemistry, PT/INR, trop, Vit D reviewed Diagnostic Findings Chest CTA 10/10/23 11:54 CT angio chest PE protocol CLINICAL HISTORY: PE TECHNIQUE: Multidetector row helical CT of the chest was performed with angiographic protocol. Coronal and sagittal reformations were obtained. Coronal and sagittal MIPS were obtained from the axial data set and were submitted for Video[employer]st. Automated dose lowering techniques and/or adjustment according to patient size were utilized for this exam. CT DOSE: 765.13 mGy.cm Comparison: Comparison is made to CT chest 04/26/2022 FINDINGS: Lungs and pleura: There is a 5 mm nodule in the right upper lobe (series 4 image 69). There is trace bilateral pleural effusion with underlying atelectasis. Heart and pericardium: Cardiomegaly is seen with biatrial enlargement. Vessels: No evidence of pulmonary embolism. Mediastinum and sherrie: Unremarkable. Chest wall and lower neck: Small thyroid nodules are noted which do not require follow-up by ACR criteria. Abdomen: Unremarkable. Bones: Degenerative changes in the thoracic spine. IMPRESSION: 1. No acute abnormality and in particular no evidence of pulmonary embolus. 2. Atelectasis and trace bilateral pleural effusions. ACT 112: Negative or not required by law. Electronically signed by: Gio Sawant M.D. 10/10/2023 1:46 PM PG Care Time/CCT Total # of Minutes Spent Total Time Spent with Patient: Total time spent is greater than 50% in coordination of care (as documented) at patient's floor/unit and/or counseling patient: Coding Level of Care Code 92584 SUB INP/OBS CARE 3/50MIN Diagnoses Fall W19.XXXA Hypoxia R09.02 Leukocytosis D72.829 Leukocytosis type: unspecified Closed right hip fracture S72.001A Encounter type: initial encounter Troponin level elevated R79.89 Rhabdomyolysis M62.82 Encounter type: initial encounter (HFpEF) heart failure with preserved ejection fraction I50.30 Hypertension I10 Paroxysmal atrial fibrillation I48.0 Pneumonia J18.9 (3) Leukocytosis Leukocytosis type: unspecified Qualified Code(s): D72.829 - Elevated white blood cell count, unspecified (4) Closed right hip fracture Encounter type: initial encounter Qualified Code(s): S72.001A - Fracture of unspecified part of neck of right femur, initial encounter for closed fracture (6) Rhabdomyolysis Encounter type: initial encounter
[2023-10-11] MEDS: ACETAMINOPHEN 325 MG TAB PO PRN (15:55)
[2023-10-11] MEDS ORDERED: ENOXAPARIN INJ 40 MG/0.4 ML SYR SQ ONE (16:38)
[2023-10-11] MEDS: POLYETHYLENE (MIRALAX) 17 GM PACK PO SCH (17:28)
[2023-10-12] MEDS: AMPICILLIN/SULBACTAM SOD 3,000 MG in SODIUM CHLOR 0.9% MINI-B 100 ML IV SCH ×4 (04:33→20:32)
[2023-10-12] MEDS: MoRPHine SULFATE 2 MG/ML CARP IV PRN ×2 (04:34→09:51)
[2023-10-12 06:55] LABS: Basophils # (auto) 0.03 K/uL (0.00-0.20); Basophils % (auto) 0.3 %; Eosinophils # (auto) 0.44 K/uL (0.00-0.50); Eosinophils % (auto) 4.4 %; Hemoglobin 10.8 g/dl (12.0-16.0); Immature Granulocytes # (auto) 0.05 K/uL (0.01-0.20); Immature Granulocytes % (auto) 0.5 %; Lymphocytes # (auto) 1.57 K/uL (1.20-3.40); Lymphocytes % (auto) 15.6 %; Mean Corpuscular Hemoglobin 20.7 pg (25.0-34.0); Mean Corpuscular Volume 68.8 fL (80.0-100.0); Monocytes # (auto) 1.19 K/uL (0.11-0.59); Monocytes % (auto) 11.9 %; Neutrophils # (auto) 6.76 K/uL (1.40-6.50); Neutrophils % (auto) 67.3 %; RDW Standard Deviation 36.9 fL (36.4-46.3); Red Blood Count 5.23 M/uL (4.20-5.40); White Blood Count 10.04 K/ul (4.8-10.8)
[2023-10-12 07:18] LABS: Albumin Globulin Ratio 1.3 (0.9-2); Albumin Level 3.2 gm/dl (3.4-5.0); BUN Creatinine Ratio 29.1 (10-20); Bilirubin,Total 1.1 mg/dl (0.2-1.0); Calcium 8.7 mg/dl (8.6-10.3); Creatinine Clr Calc Pharmacy 76.3 ml/min; Est GFR (African American) 97.1 ml/min; Est GFR (Non-African American) 83.7 ml/min; Globulin 2.4 gm/dl (2.5-4.0); Magnesium 2.1 mg/dl (1.7-2.4); Potassium 3.7 mmol/L (3.5-5.1); Total Protein 5.6 gm/dl (6.0-8.3)
[2023-10-12 07:32] LABS: Mean Platelet Volume 10.9 fL (9.4-12.4); Platelet Count 160 K/uL (130-400)
[2023-10-12 07:37] LABS: Hypochromasia Present; Microcytosis Present; Polychromasia 1+; Tear Drop Cells 2+
[2023-10-12] MEDS: METOPROLOL SUCC 50MG EXT REL TAB PO SCH (08:39)
[2023-10-12] MEDS: CHOLECALCIFEROL 1,000 UNITS 25 MCG TAB PO SCH (08:39)
[2023-10-12] MEDS: FLECAINIDE ACETATE 100 MG TABLET PO SCH ×2 (08:39→20:32)
[2023-10-12] MEDS: clonazePAM 0.5 MG TAB PO SCH ×2 (08:39→20:37)
[2023-10-12] MEDS: SERTRALINE HCL 50 MG TABLET PO SCH (08:40)
[2023-10-12] MEDS: PANTOprazole 40 MG TAB PO SCH ×2 (08:40→20:31)
[2023-10-12] MEDS: POLYETHYLENE (MIRALAX) 17 GM PACK PO SCH (08:40)
[2023-10-12] MEDS: ONDANSETRON INJ 2 MG/ML 2 ML VIAL IV PRN (09:51)
[2023-10-12] MEDS: DOXYCYCLINE HYCLATE 100 MG in DEXTROSE 5% MINI-B 100 ML IV SCH ×2 (10:59→20:33)
[2023-10-12] MEDS ORDERED: METOPROLOL TARTRATE 1 MG/ML VIAL IV STA ×4 (11:11→16:11)
--- NOTE | 2023-10-12 11:11 | Hospitalist Progress Note ---
Date of Service October 12, 2023 Assessment & Plan (1) Fall: Plan: -Patient sustained a mechanical fall in the late morning on 10/08 while attempting to sit on a chair in her living room, was likely on ground for 24 hours before being found by her daughter -Only signs of trauma at this time are her right hip fracture and bruising over the dorsum of the left foot -Xray: Nondisplaced fracture at the base of fifth proximal phalanx LEFT foot -Received 40 mg IV lasix in the ED as the CT of the thoracic spine noted mild pulmonary edema and trace BL pleural effusions -Consult ortho, appreciate recs - Medically stable for OR - plan to go to OR with Dr. Flanagan 10/13 -Pain control with prn tylenol and morphine (2) Hypoxia: Plan: -Patient was reportedly hypoxic for EMS on arrival -No sign of pneumonia on CXR, no respiratory distress on admission -10/09: CT of the thoracic spine mentions mild pulmonary edema and small BL pleural effusions, lung exam is essentially clear -Patient also mentions that she is often started on O2 while admitted and sleeping, likely has some component of EDGAR and/or obesity hypoventilation syndrome -10/10: CXR without signs of pneumonia, CTA without PE -Currently on 5L -Incentive spirometry, flutter therapy, prn O2 to keep SpO2 at or above 94% (3) Closed right hip fracture: Plan: -Noted on xray of the right hip/pelvis 10/09 -Orthopedics is following, medically stable for OR, scheduled for 10/13 -Holding Eliquis in preparation for OR -Fall precautions, PT/OT consults after surgery -10/11: Vit D level: 15.7, 2000 units daily ordered -PRN tylenol and morphine for pain (4) Leukocytosis: Plan: -Patient with WBC of 22 with neutrophil predominance of 19 on admission -Febrile overnight 10/09 --> will treat as infection - Continue Unasyn and doxycycline - WBC downtrending -Will obtain blood cultures on admission, unfortunately she was given Zosyn and no blood cultures were obtain in the ED -No growth at 48 hours (5) Troponin level elevated: Plan: -Initial high sen trop elevated at 157 ---> 209 on 2 hour repeat, continues to downtrend, most recent 117.2 -Initial CK level elevated at 1284 --> 743 -Patient denies chest pain -ECG shows possible RBBB with ST depression in the anterior leads -Likely due to demand from falling and being on the ground for approximately 24 hours -10/10 Echo: mild LVH, EF 60-65% (6) Rhabdomyolysis: Plan: -Initial CK elevated at 1284 --> 743 -Improved - renal function and LFTs WNLs (7) (HFpEF) heart failure with preserved ejection fraction: Plan: -Patient appeared dehydrated on admission despite mild pulmonary edema and small BL pleural effusions on thoracic spine CT - Given 40mg lasix IV in the ED -No significant fluid on auscultation of lungs on admission -IVF for rhabdomyolysis have been stopped. Continues to look euvolemic -BNP: 802 -Daily weight (8) Hypertension: Plan: -Stable -Will continue home metoprolol, mainly for afib -Home amlodipine and lisinopril initially held in the setting of dehydration and rhabdomyolysis - will continue to hold as pressures have been stable without (9) Paroxysmal atrial fibrillation: Plan: -Flipped to Afib evening of 10/11, has sustained with rates 100-120s since. -IV lopressor 2.5mg x 3 -Continue metoprolol and flecainide -Holding Eliquis with awaiting OR w for right hip fracture repair (10) Pneumonia: Plan: suspect cause of hypoxia, see above continue Doxycycline and Unasyn Plan Continued inpatient stay Admission and Anticipated Discharge Date Admission Date: October 09, 2023 Subjective 1100 - Patient seen sitting up in bed, had just gotten washed up with nursing. Report hip pain after having been turned for her bath. Has been in afib since last night, reports that she has only felt like her heart was going fast twice. Denies chest pain or pressure. Does not usually feel like she in afib since her principal technical writer started her on flecainide. Still requiring 5L oxygen, has felt short of breath after movement in the bed. Good appetite, has not had bowel movement yet but tolerating miralax. Tele - Afib 120s Review of Systems Review of Systems: All systems reviewed & are unremarkable except as noted in Subjective Physical Exam Physical Exam: General: WN/WD, NAD, VS as above Resp: normal respiratory effort, no accessory muscle use, able to speak in full sentences, CTA CV: RRR, no murmur, no edema Abd: normal bowel sounds, non tender, no hepatosplenomegaly Extremities: hematoma over left 5th digit, distal pulses intact bilaterally. Minimal swelling, no bruising over R hip Neuro: A&O x3, Skin: intact, bruising as above Results & Data Results & Data Vital Signs (Past 12 Hours) Vital Signs Temp Pulse Pulse Resp BP Pulse Ox O2 Del Method 10/12/23 08:09 36.2 C L 98 H 18 140/80 94 Nasal Cannula 10/12/23 07:21 135 H 10/12/23 07:18 Nasal Cannula 10/12/23 04:38 36.6 C 102 H 20 133/80 95 Nasal Cannula 10/12/23 01:04 110 H 10/12/23 00:48 36.9 C 102 H 20 106/64 93 Oxymask 10/11/23 23:44 Nasal Cannula O2 Flow Rate 10/12/23 08:09 5 10/12/23 07:21 10/12/23 07:18 5 10/12/23 04:38 5 10/12/23 01:04 10/12/23 00:48 5 10/11/23 23:44 5 PG Care Time/CCT Total # of Minutes Spent Total Time Spent with Patient: Total time spent is greater than 50% in coordination of care (as documented) at patient's floor/unit and/or counseling patient: Coding Level of Care Code 98477 SUB INP/OBS CARE 3/50MIN Diagnoses Fall W19.XXXA Hypoxia R09.02 Closed right hip fracture S72.001A Encounter type: initial encounter Leukocytosis D72.829 Leukocytosis type: unspecified Troponin level elevated R79.89 Rhabdomyolysis M62.82 Encounter type: initial encounter (HFpEF) heart failure with preserved ejection fraction I50.30 Hypertension I10 Paroxysmal atrial fibrillation I48.0 Pneumonia J18.9 (3) Closed right hip fracture Encounter type: initial encounter Qualified Code(s): S72.001A - Fracture of unspecified part of neck of right femur, initial encounter for closed fracture (4) Leukocytosis Leukocytosis type: unspecified Qualified Code(s): D72.829 - Elevated white blood cell count, unspecified (6) Rhabdomyolysis Encounter type: initial encounter
[2023-10-12] MEDS: ACETAMINOPHEN 325 MG TAB PO PRN ×2 (11:58→20:37)
[2023-10-12] MEDS ORDERED: ENOXAPARIN INJ 40 MG/0.4 ML SYR SQ ONE (16:46)
--- NOTE | 2023-10-12 18:10 | Anesthesiology Consultation ---
Date of Service October 12, 2023 Assessment & Plan (1) Encounter for pre-operative examination: Chart Review Chart Review: Acceptable Risk for Surgery and Patient NOT seen in Pre Admission Testing Consults Requested none History Surgery Operation Date: 10/13/23 07:00 Proposed Procedures p Right Hip Hemiarthroplasty - Wes Flanagan, Height/Weight Height: 5 ft 5 in Weight: 85.4 kg Allergies Allergy/AdvReac Type Severity Reaction Status Date / Time metronidazole Allergy Intermediate HIVES Verified 10/09/23 16:33 naproxen Allergy Intermediate HIVES Verified 10/09/23 16:33 perflutren [From [employer]] AdvReac Back Pain Verified 10/10/23 07:53 Medications Home Medications Medication Instructions Recorded Confirmed Last Taken flecainide 100 mg tablet 100 mg PO Q12H #180 tabs 07/28/19 10/09/23 10/07/23 furosemide 40 mg tablet 40 mg PO DAILY 07/28/19 10/09/23 10/07/23 lorazepam 0.5 mg tablet 0.5 mg PO PM PRN Insomnia 07/28/19 10/09/23 Unknown potassium chloride 20 mEq 20 meq PO DAILY 07/28/19 10/09/23 10/07/23 tablet,extended release multivitamin 1 tab PO QAM 08/27/19 10/09/23 10/07/23 amlodipine 5 mg tablet (Norvasc) 5 mg PO BID #60 tabs 08/29/19 10/09/23 10/07/23 clonazepam 0.25 mg disintegrating 0.25 mg PO BID #60 tabs 08/29/19 10/09/23 10/07/23 tablet metoprolol succinate 100 mg 100 mg PO DAILY 06/16/21 10/09/23 10/07/23 tablet,extended release 24 hr (Toprol XL) apixaban 5 mg tablet (Eliquis) 5 mg PO BID #180 tabs 07/21/21 10/09/23 10/07/23 lisinopril 20 mg tablet 20 mg PO BID 04/23/23 10/09/23 10/07/23 pantoprazole 20 mg tablet,delayed 20 mg PO BID 04/23/23 10/09/23 10/07/23 release sertraline 50 mg tablet 50 mg PO DAILY 04/23/23 10/09/23 10/07/23 acetaminophen 500 mg tablet 500 mg PO DIRECTED PRN 10/09/23 10/09/23 10/07/23 (Tylenol Extra Strength) ARTHRITIS PAIN carboxymethylcellulose 0.5 1 drp ophthalmic (eye) DIRECTED 10/09/23 10/09/23 Unknown %-glycerin 0.9 % eye drops PRN Dry Eyes (Refresh Optive) loperamide 2 mg tablet 2 mg PO DIRECTED PRN Diarrhea 10/09/23 10/09/23 Unknown simethicone 125 mg chewable tablet 125 mg PO DIRECTED PRN GAS 10/09/23 10/09/23 Unknown (Gas-X Extra Strength) RELIEF Active Medications Generic Name Dose Route Start Last Admin Trade Name Freq PRN Reason Stop Dose Admin Acetaminophen 325 mg 10/11/23 11:52 10/12/23 11:58 Acetaminophen 325 Mg Tab PO 11/10/23 11:51 325 mg Q4H PRN Administration Mild-Mod Pain (Scale 1-6) Clonazepam 0.25 mg 10/09/23 21:00 10/12/23 08:39 Clonazepam 0.5 Mg Tab PO 11/08/23 20:59 0.25 mg BID RAMIRO Administration Flecainide Acetate 100 mg 10/09/23 21:00 10/12/23 08:39 Flecainide Acetate 100 Mg Tablet PO 11/08/23 20:59 100 mg Q12H RAMIRO Administration Doxycycline Hyclate 100 mg/ 100 mls @ 50 mls/hr 10/09/23 22:30 10/12/23 13:01 Dextrose IV 10/16/23 22:29 Infused Q12H RAMIRO Infusion Ampicillin Sodium/Sulbactam 100 mls @ 100 mls/hr 10/09/23 21:45 10/12/23 16:50 Sodium 3,000 mg/ Sodium IV 10/16/23 21:44 Infused Chloride Q6H RAMIRO Infusion Metoprolol Succinate 100 mg 10/10/23 09:00 10/12/23 08:39 Metoprolol Succ 50mg Ext Rel Tab PO 11/09/23 08:59 100 mg DAILY RAMIRO Administration Morphine Sulfate 2 mg 10/09/23 16:19 10/12/23 09:51 Morphine Sulfate 2 Mg/Ml Carp IV 10/23/23 16:29 2 mg Q3H PRN Administration pain (5+) Ondansetron HCl 4 mg 10/09/23 17:05 10/12/23 09:51 Ondansetron Inj 2 Mg/Ml 2 Ml Vial IV 11/08/23 17:04 4 mg Q6H PRN Administration Nausea And Vomiting Pantoprazole Sodium 40 mg 10/09/23 21:00 10/12/23 08:40 Pantoprazole 40 Mg Tab PO 11/08/23 20:59 40 mg BID RAMIRO Administration Polyethylene Glycol 17 gm 10/11/23 17:00 10/12/23 08:40 Polyethylene (Miralax) 17 Gm Pack PO 11/10/23 16:59 17 gm DAILY RAMIRO Administration Sertraline HCl 50 mg 10/10/23 09:00 10/12/23 08:40 Sertraline Hcl 50 Mg Tablet PO 11/09/23 08:59 50 mg DAILY RAMIRO Administration Vitamin D 2,000 units 10/10/23 11:00 10/12/23 08:39 Cholecalciferol 1,000 Units 25 Mcg Tab PO 11/09/23 10:59 2,000 units QAM RAMIRO Administration Past Medical History Medical History (Updated 10/12/23 @ 18:09 by Tristan Toledo MD) Encounter for pre-operative examination Troponin level elevated Rhabdomyolysis Hypertension Hypoxia Anticoagulant long-term use Chest pain Paroxysmal atrial fibrillation CHF (congestive heart failure) Chest pain Fall late morning 10/08/23 and was found down after 24 hours. Hypoxic on arrival. Troponin elevated and thought to be demand related. Rhabdo improving. Exercise / Class Metabolic Activity III < 4 Walking/Shop/Light housework Past Family History Family History Father , age 60 Colorectal cancer Mother , age 98 Dementia Hypertension Stroke Sister , age 60s Mesothelioma Denies family history of Coronary heart disease AAA (abdominal aortic aneurysm) Past Surgical History Surgical History History of 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 History of dilatation and curettage x 2 History of hysterectomy with BSO Social History Smoking Status: Never smoker Do You Dip or Chew Tobacco: No Hx Alcohol Use: Yes Alcohol type: wine alcohol intake frequency: holidays/special occasions only Hx Substance Use: No substance use type: does not use Physical Exam Vital Signs Last Vital Signs Temp 36.8 C 10/12/23 15:19 Pulse 101 H 10/12/23 16:48 Resp 16 10/12/23 15:19 BP 130/73 10/12/23 16:48 Pulse Ox 93 10/12/23 15:19 O2 Del Method Nasal Cannula 10/12/23 15:19 O2 Flow Rate 5 10/12/23 15:19 Testing Laboratory Results 10/12/23 05:48 10/12/23 05:48 PT 11.4 Seconds (9.0-12.0) 10/11/23 01:49 INR 1.0 (0.9-1.1) 10/11/23 01:49 Urine Color Yellow 10/09/23 14:43 Urine Appearance Clear (Clear) 10/09/23 14:43 Urine pH 6.5 (4.5-7.5) 10/09/23 14:43 Ur Specific [place] 1.020 (1.000-1.030) 10/09/23 14:43 Urine Protein 2+ (Negative) H 10/09/23 14:43 Urine Glucose (UA) Negative (Negative) 10/09/23 14:43 Urine Ketones 1+ (Negative) H 10/09/23 14:43 Urine Nitrite Negative (Negative) 10/09/23 14:43 Ur Leukocyte Esterase Negative (Negative) 10/09/23 14:43 Urine WBC (Auto) 1-5 /hpf (0-5) 10/09/23 14:43 Urine RBC (Auto) 5-10 /hpf (0-4) H 10/09/23 14:43 U Hyaline Cast (Auto) 0 /lpf (0-5) 10/09/23 14:43 U Epithel Cells (Auto) 10-20 /lpf (0-5) H 10/09/23 14:43 Urine Bacteria (Auto) Negative (Negative) 10/09/23 14:43 Blood Type O Positive 10/09/23 20:09 Antibody Screen NEGATIVE 10/09/23 20:09 10/09/23 16:46 Aerobic Blood Culture - Preliminary Blood No growth in Aerobic bottle after 48 hours. Anaerobic Blood Culture - Preliminary No growth in Anaerobic bottle after 48 hours. 10/09/23 16:50 Aerobic Blood Culture - Preliminary Blood No growth in Aerobic bottle after 48 hours. Anaerobic Blood Culture - Preliminary No growth in Anaerobic bottle after 48 hours. Electrocardiogram Date: 10/09/23 DICTATED BY: Mejia Bland MD Test Reason : Blood Pressure : / mmHG Vent. Rate : 078 BPM Atrial Rate : 078 BPM P-R Int : 234 ms QRS Dur : 098 ms QT Int : 394 ms P-R-T Axes : 071 -16 049 degrees QTc Int : 449 ms Sinus rhythm with 1st degree A-V block Incomplete right bundle branch block Minimal voltage criteria for LVH, may be normal variant ( ) Septal infarct , age undetermined Abnormal ECG When compared with ECG of 23-APR-2023 05:34, Incomplete right bundle branch block is now Present Septal infarct is now Present Confirmed by Mejia Bland ([id number]) on 10/09/2023 1:35:00 PM Chest X-Ray Date: 10/09/23 XR chest 1V portable CLINICAL HISTORY: increasing O2 needs TECHNIQUE: Single frontal radiograph of the chest was obtained. Comparison: Comparison is made to chest radiograph 10/09/2023 FINDINGS: No lines and tubes are seen. Calcified aortic knob is seen. The lungs are clear. No evidence of pleural effusion or pneumothorax. IMPRESSION: No acute chest disease. Cardiomegaly is noted. Echocardiogram Date: 10/10/23 LV systolic function is normal. No RWMA noted. Mild LVH EF 60-65% NO . Other Testing 10/10/[address]: CT angio chest PE protocol CLINICAL HISTORY: PE TECHNIQUE: Multidetector row helical CT of the chest was performed with angiographic protocol. Coronal and sagittal reformations were obtained. Coronal and sagittal MIPS were obtained from the axial data set and were submitted for review. Automated dose lowering techniques and/or adjustment according to patient size were utilized for this exam. CT DOSE: 765.13 mGy.cm Comparison: Comparison is made to CT chest 04/26/2022 FINDINGS: Lungs and pleura: There is a 5 mm nodule in the right upper lobe (series 4 image 69). There is trace bilateral pleural effusion with underlying atelectasis. Heart and pericardium: Cardiomegaly is seen with biatrial enlargement. Vessels: No evidence of pulmonary embolism. Mediastinum and sherrie: Unremarkable. Chest wall and lower neck: Small thyroid nodules are noted which do not require follow-up by ACR criteria. Abdomen: Unremarkable. Bones: Degenerative changes in the thoracic spine. IMPRESSION: 1. No acute abnormality and in particular no evidence of pulmonary embolus. 2. Atelectasis and trace bilateral pleural effusions.
[2023-10-13] MEDS: AMPICILLIN/SULBACTAM SOD 3,000 MG in SODIUM CHLOR 0.9% MINI-B 100 ML IV SCH ×4 (04:45→20:44)
[2023-10-13] MEDS: MoRPHine SULFATE 2 MG/ML CARP IV PRN ×3 (05:58→21:00)
[2023-10-13] MEDS: ONDANSETRON INJ 2 MG/ML 2 ML VIAL IV PRN ×2 (05:59→20:43)
[2023-10-13 06:50] LABS: Basophils # (auto) 0.04 K/uL (0.00-0.20); Basophils % (auto) 0.4 %; Eosinophils # (auto) 0.37 K/uL (0.00-0.50); Eosinophils % (auto) 4.1 %; Hematocrit (blood only) 35.5 % (37.0-47.0); Hemoglobin 10.9 g/dl (12.0-16.0); Immature Granulocytes # (auto) 0.03 K/uL (0.01-0.20); Immature Granulocytes % (auto) 0.3 %; Lymphocytes # (auto) 1.63 K/uL (1.20-3.40); Lymphocytes % (auto) 18.1 %; Mean Corpuscular Hemoglobin 20.7 pg (25.0-34.0); Mean Corpuscular Hgb Conc 30.7 g/dL (32.0-36.0); Mean Corpuscular Volume 67.5 fL (80.0-100.0); Monocytes # (auto) 1.07 K/uL (0.11-0.59); Monocytes % (auto) 11.9 %; Neutrophils # (auto) 5.86 K/uL (1.40-6.50); Neutrophils % (auto) 65.2 %; RDW Coefficient of Variation 14.6 % (11.5-14.5); RDW Standard Deviation 34.5 fL (36.4-46.3); Red Blood Count 5.26 M/uL (4.20-5.40)
[2023-10-13 06:58] LABS: Albumin Globulin Ratio 1.3 (0.9-2); Albumin Level 3.1 gm/dl (3.4-5.0); BUN Creatinine Ratio 25.6 (10-20); Bilirubin,Total 1.4 mg/dl (0.2-1.0); Calcium 8.6 mg/dl (8.6-10.3); Est GFR (African American) 108.7 ml/min; Est GFR (Non-African American) 93.8 ml/min; Globulin 2.3 gm/dl (2.5-4.0); Potassium 3.6 mmol/L (3.5-5.1); Total Protein 5.4 gm/dl (6.0-8.3)
[2023-10-13 07:20] LABS: Platelet Count 153 K/uL (130-400)
[2023-10-13 07:23] LABS: Hypochromasia Present; Microcytosis Present; Ovalocytes 1+; Poikilocytosis Present; Polychromasia 1+; Tear Drop Cells 2+
[2023-10-13] MEDS: ACETAMINOPHEN 325 MG TAB PO PRN ×2 (07:38→20:42)
[2023-10-13] MEDS: clonazePAM 0.5 MG TAB PO SCH ×2 (08:44→20:42)
[2023-10-13] MEDS: PANTOprazole 40 MG TAB PO SCH ×2 (08:44→20:44)
[2023-10-13] MEDS: FLECAINIDE ACETATE 100 MG TABLET PO SCH ×2 (08:44→20:44)
[2023-10-13] MEDS: CHOLECALCIFEROL 1,000 UNITS 25 MCG TAB PO SCH (08:44)
[2023-10-13] MEDS: METOPROLOL SUCC 50MG EXT REL TAB PO SCH ×2 (08:44→08:56)
[2023-10-13] MEDS: SERTRALINE HCL 50 MG TABLET PO SCH (08:44)
[2023-10-13] MEDS ORDERED: fentaNYL citrate PF 100 MCG/2 ML VIAL ONE ×2 (10:22→12:37)
[2023-10-13] MEDS: SODIUM CHLORIDE 0.9% 1,000 ML IV SCH ×2 (10:29→17:44)
[2023-10-13] MEDS ORDERED: PROMETHAZINE HCL 12.5 MG in SODIUM CHLORIDE 0.9% 50 ML IV PRN (10:46)
[2023-10-13] MEDS ORDERED: ePHEDrine sulfate 50 MG/ML AMP IV PRN (10:46)
[2023-10-13] MEDS ORDERED: NALOXONE HCL 0.4 MG/1 ML VIAL/CARP IV PRN ×2 (10:46→16:41)
[2023-10-13] MEDS ORDERED: ATROPINE SULFATE 0.1 MG/ML 10ML SYR IV PRN (10:46)
[2023-10-13] MEDS ORDERED: FLUMAZENIL 0.1 MG/1 ML 10 ML VIAL IV PRN (10:46)
[2023-10-13] MEDS ORDERED: HYDROmorphone INJ 1 MG/ML SYRINGE IV PRN (10:46)
[2023-10-13] MEDS ORDERED: fentaNYL citrate PF 100 MCG/2 ML VIAL IV PRN (10:46)
[2023-10-13] MEDS ORDERED: LABETALOL HCL IV 5 MG/ML 20ML IV PRN (10:46)
[2023-10-13] MEDS ORDERED: ONDANSETRON INJ 2 MG/ML 2 ML VIAL IV PRN ×2 (10:46→16:41)
--- NOTE | 2023-10-13 11:08 | History & Physical Bridge Note ---
Date of Service October 13, 2023 History & Physical Bridge Note I have examined the patient, reviewed the History & Physical and in the interval since the performance of the History & Physical I have noted the following changes of clinical significance: Patient with right hip displaced femoral neck fracture. Will plan for right hip hemiarthroplasty. Procedure was explained in detail, and the patient and her daughter are in agreement this plan. Risks, benefits, and alternatives of surgery were explained in detail. The surgical procedure, as well as postoperative recovery and rehabilitation, was also explained in detail. Risks include bleeding; infection; damage to surrounding structures such as nerves, blood vessels, and tendons that run in the area; persistent pain or stiffness; hardware failure; dislocation; leg length discrepancy; blood clots; or need for further surgery. The patient understands all of this and wishes to proceed with surgery. Informed consent was obtained.
[2023-10-13] MEDS ORDERED: LIDOCAINE 1% LOCAL 20 ML VIAL ONE (11:15)
[2023-10-13] MEDS ORDERED: LIDOCAINE 1%/EPINEPHRINE 1:100,000 20 ML VIAL ONE (11:15)
[2023-10-13] MEDS ORDERED: BUPIVACAINE 0.5 % 5 MG/1 ML MPF 30ML VIAL ONE (11:16)
[2023-10-13] MEDS ORDERED: ESMOLOL HCL INJ 10 MG/ML 10ML VIAL IV ONE (12:04)
[2023-10-13] MEDS ORDERED: PROPOFOL IV EMULSION 10 MG/ML 20 ML VIAL IV ONE (12:09)
[2023-10-13] MEDS ORDERED: ONDANSETRON INJ 2 MG/ML 2 ML VIAL ONE (12:09)
[2023-10-13] MEDS ORDERED: LIDOCAINE 2% 2 ML VIAL/AMP(20MG/ML) INFIL ONE (12:09)
[2023-10-13] MEDS ORDERED: ROCURONIUM BROMIDE 10 MG/ML 5 ML VIAL IV ONE (12:09)
[2023-10-13] MEDS ORDERED: DEXAMETHASONE SOD INJ 4 MG/ML VIAL ONE (12:09)
[2023-10-13] MEDS ORDERED: ceFAZolin 2000MG 2,000 MG/15 ML SYR IV ONE (12:33)
[2023-10-13] MEDS ORDERED: SUGAMMADEX SODIUM 200 MG/2 ML VIAL IV ONE (12:43)
[2023-10-13] MEDS ORDERED: PHENYLEPHRINE 100MCG/ML 10ML SYR IV ONE (12:43)
[2023-10-13] MEDS ORDERED: PHENYLEPHRINE HCL 10 MG/ML VIAL ONE (13:15)
[2023-10-13] MEDS ORDERED: ceFAZolin 330 MG/ML 1 GM VIAL ONE (13:22)
--- NOTE | 2023-10-13 13:47 | Operative Report ---
Post Operative Report Pre & Post Diagnosis Operation Date: 10/13/23 07:00 Pre-Op Diagnosis: Right hip displaced femoral neck fracture Post-Op Diagnosis: Right hip displaced femoral neck fracture I identified the patient and participated in the time-out.: Yes Procedure Operation Date: 10/13/23 07:00 Actual Procedures Right hip hemiarthroplasty for displaced femoral neck fracture (78392) - Eitan Long M.D. Surgeon Eitan Long MD Core Fitter Alfredo Rose PA-C Estimated Blood Loss 75 Findings Consistent with Post-Op Diagnosis Specimens None Drains None Anesthesia Type General Complications none Disposition Disposition: Recovery Room Indications Ms. Lynch is an 88-year-old female who injured her right hip during a ground- level fall at home. History, clinical exam, and imaging were consistent with the above diagnosis. Risks, benefits, and alternatives of surgery were explained in detail. The patient understood all this and wished to proceed. Description of Procedure Components implanted: Biomet Echo Bi-Metric press-fit 64x543 mm Standard Femoral Stem 46mm RingLoc Bi-Polar Shell with +3mm Neck Patient was identified in the preoperative holding area. Operative extremity was marked. Patient was then brought back to the operating room, and general anesthesia was induced without complication. Appropriate weight-based dose of Ancef was infused intravenously for antibiotic prophylaxis. Patient was then turned in the lateral decubitus position with the right hip up. Hip positioner was applied to hold the pelvis stable. Axillary roll was placed and all bony prominences were well padded. The right leg was then prepped and draped in a standard sterile fashion using Chlorhexidine prep. I made an incision over the lateral aspect of the hip for a posterolateral approach. I then dissected through subcutaneous tissues down to the iliotibial band. The iliotibial band was divided in line with its fibers at the posterior third of the greater trochanter. Greater trochanteric bursectomy was then performed to expose the posterolateral aspect of the hip. I released the piriformis tendon and short external rotators off of their attachment point at the posterolateral aspect of the greater trochanter. These tendons was tagged with #2 FiberWire sutures in a locking [place] fashion for later repair. I then made a T-capsulotomy of the posterior hip joint capsule. The inferior leaf the capsulotomy was tagged with a #1 Vicryl suture for retraction during hip reduction and later repair. The femoral neck fracture was then easily identified. Comminuted fracture fragments were removed as they were encountered. I then marked the femoral neck about 1 cm proximal to the lesser trochanter and made the proximal femoral cut in line with the angle given by the proximal femoral resection guide. Femoral neck fracture fragments were then removed proximal to the neck cut. The femoral head was then removed and sized. Ligamentum teres was resected from the depth of the acetabulum and the acetabulum was copiously irrigated with sterile saline to insure that there were no remaining bone fragments. I then placed an appropriately-sized trial head into the acetabulum. It seated fully, had free range of motion, and had a good suction seal. I then used the box osteotome to remove a rectangle of bone at the posterolateral femur in line with the femoral canal to ensure that I was completely lateralized into the medial wall of the greater trochanter. Canal finder was then used down the center of the femoral canal. I then used a lateralizing reamer to ensure that I was completely lateralized to avoid varus positioning of the implant. I then sequentially reamed with the canal reamers until I got good cortical chatter. I then sequentially broached until I achieved good cortical fit. The final femoral stem was impacted into place. This showed excellent rotational stability. I then trialed with various neck lengths on the femoral stem while taking the hip through full range of motion. I selected a neck length that gave good stability of the hip through full range of motion, including in flexion, adduction, and internal rotation, as well as good range of motion in flexion and extension, and equal leg lengths. I then removed the trial femoral head and impacted the final femoral head onto the [place] taper of the femoral stem. I then again reduced the hip and took it through full range of motion. Again, there was excellent stability of the hip with full range of motion. I was then satisfied with the procedure. The wound was copiously irrigated with sterile saline via pulsatile irrigation. I then closed the posterior capsulotomy with #2 FiberWire suture. I then made three drill holes in the posterior aspect of the greater trochanter and passed the previously placed FiberWire sutures in the piriformis tendon and short external rotators through these drill holes. The tendons were reapproximated and tied with the hip held in external rotation. I then closed the iliotibial band with a #1 Vicryl suture as a tacking stitch followed by a running #0 V-Lock suture. Deep dermal tissue was then closed with 2-0 V-Lock, and subcutaneous tissue was closed with 3-0 V- Lock. Wound bed was then anesthetized with a 50-50 mixture of 1% lidocaine and 0.5% Marcaine without epinephrine. The incision was then sealed with Dermabond. Sterile dressings were then applied with Silverlon. Drapes were then removed and a hip abduction pillow was placed. The patient was then transferred over to the stretcher and taken to the Post-Anesthesia Care Unit in stable condition. There were no immediate complications from the procedure. I was present and scrubbed for the entire procedure. Due to the complex nature of the procedure, the entire surgery was performed with the operational assistance of Alfredo Rose PA-C. The media assistant, under direct supervision, was involved in the performance of all aspects of the surgical procedure including patient positioning, tissue retraction, hemostasis, wound closure, and dressing application. I attest to the content of the Intraoperative Record and any orders documented therein. Any exceptions are noted below.
--- NOTE | 2023-10-13 15:09 | Anesthesiology Progress Note ---
Date of Service October 13, 2023 Anesthesia Post Procedure Vital Signs Vital Signs: Temp Pulse Pulse Pulse Resp BP BP 10/13/23 15:00 97.7 F 110 H 17 108/62 10/13/23 14:50 110 H 12 105/54 L 10/13/23 14:40 128 H 16 115/53 L 10/13/23 14:30 127 H 25 H 112/68 10/13/23 14:20 122 H 14 132/68 10/13/23 14:10 118 H 16 138/62 10/13/23 14:00 108 H 17 123/59 L 10/13/23 13:52 97.7 F 121 H 17 107/67 10/13/23 10:10 122 H 10/13/23 10:10 98.1 F 123 H 16 133/71 10/13/23 07:59 97.7 F 99 H 18 126/59 L 10/13/23 07:40 10/13/23 06:06 10/13/23 04:05 97.9 F 102 H 20 129/76 10/13/23 00:23 97.9 F 82 18 176/58 H 10/13/23 00:00 90 10/12/23 22:07 10/12/23 19:59 98.4 F 101 H 20 113/66 10/12/23 16:48 101 H 130/73 10/12/23 16:28 104 H 126/75 10/12/23 16:03 102 H 123/70 10/12/23 15:47 112 H 120/75 10/12/23 15:34 98 H 10/12/23 15:19 98.2 F 109 H 16 120/72 BP Pulse Ox O2 Del Method O2 Flow Rate 10/13/23 15:00 92 Nasal Cannula 4 10/13/23 14:50 92 Nasal Cannula 4 10/13/23 14:40 92 Nasal Cannula 4 10/13/23 14:30 90 Nasal Cannula 4 10/13/23 14:20 123/82 93 Nasal Cannula 4 10/13/23 14:10 123/85 93 Oxymask 10 10/13/23 14:00 105/50 L 91 Oxymask 10 10/13/23 13:52 108/64 90 Oxymask 10 10/13/23 10:10 10/13/23 10:10 94 Nasal Cannula 4 10/13/23 07:59 92 Room Air 10/13/23 07:40 Nasal Cannula 3 10/13/23 06:06 94 Nasal Cannula 3 10/13/23 04:05 94 Nasal Cannula 4 10/13/23 00:23 96 Room Air 2 10/13/23 00:00 10/12/23 22:07 Nasal Cannula 4 10/12/23 19:59 94 Nasal Cannula 10/12/23 16:48 10/12/23 16:28 10/12/23 16:03 10/12/23 15:47 10/12/23 15:34 10/12/23 15:19 93 Nasal Cannula 5 Pain Intensity Right Hip: Pain Intensity: 6 Transfer of Care Handoff Completed per policy Notes Mental Status: alert / awake / arousable and participated in evaluation Patient Amnestic to Procedure: Yes Nausea / Vomiting: adequately controlled Pain: adequately controlled Airway Patency, RR, SpO2: stable & adequate BP & HR: stable & adequate Hydration State: stable & adequate Anesthetic Complications: no major complications apparent and Pt Satisfied with anesthetic care
[2023-10-13] MEDS: DOXYCYCLINE HYCLATE 100 MG in DEXTROSE 5% MINI-B 100 ML IV SCH ×2 (15:36→20:45)
--- NOTE | 2023-10-13 15:51 | XRay Report ---
XR hip 1V RT w pelvis CLINICAL HISTORY: post op TECHNIQUE: 2 view of the right hip and single frontal view of the pelvis were obtained. Comparison: Comparison is made to hip radiograph 10/09/2023 FINDINGS: Patient is status post total hip arthroplasty with expected postsurgical changes including soft tissu e swelling and subcutaneous emphysema. IMPRESSION: Expected postoperative appearance status post placement of total hip arthroplasty. ACT 112: Negative or not required by law. Electronically signed by: Gio Sawant M.D. 10/13/2023 3:49 PM
--- NOTE | 2023-10-13 15:56 | Hospitalist Progress Note ---
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 Christian 10/13 -Pain control, DVT proh recommendations per surgery - Eliquis currently on hold, likely resume 10/14 -PT/OT -10/11: Vit D level: 15.7, 2000 units daily ordered -PRN tylenol and morphine for pain -Will need rehab placement (3) Hypoxia: Plan: -Patient was reportedly hypoxic for EMS on arrival -No sign of pneumonia on CXR, no respiratory distress on admission -10/09: CT of the thoracic spine mentions mild pulmonary edema and small BL pleural effusions, lung exam is essentially clear -Patient also mentions that she is often started on O2 while admitted and sleeping, likely has some component of EDGAR and/or obesity hypoventilation syndrome -10/10: CXR without signs of pneumonia, CTA without PE -Incentive spirometry, flutter therapy, prn O2 to keep SpO2 at or above 94% (4) Leukocytosis: Plan: -Patient with WBC of 22 with neutrophil predominance of 19 on admission -Febrile overnight 10/09 --> will treat as infection - Continue Unasyn and doxycycline - WBC downtrending -Will obtain blood cultures on admission, unfortunately she was given Zosyn and no blood cultures were obtain in the ED -No growth at 48 hours (5) Troponin level elevated: Plan: Demand ischemia -Initial high sen trop elevated at 157 ---> 209 on 2 hour repeat, continues to downtrend, most recent 117.2 -Initial CK level elevated at 1284 --> 743 -Patient denies chest pain -ECG shows possible RBBB with ST depression in the anterior leads -Likely due to demand from falling and being on the ground for approximately 24 hours -12/4 Echo: mild LVH, EF 60-65% (6) Rhabdomyolysis: Plan: -Initial CK elevated at 1284 --> 743 -Improved - renal function and LFTs WNLs (7) (HFpEF) heart failure with preserved ejection fraction: Plan: Acute on chronic HFpEF -Patient appeared dehydrated on admission despite mild pulmonary edema and small BL pleural effusions on thoracic spine CT - Given 40mg lasix IV in the ED -No significant fluid on auscultation of lungs on admission -BNP: 802 -Daily weight (8) Hypertension: Plan: -Stable -Will continue home metoprolol, mainly for afib -Home amlodipine and lisinopril initially held in the setting of dehydration and rhabdomyolysis - will continue to hold as pressures have been stable without (9) Paroxysmal atrial fibrillation: Plan: -Flipped to Afib evening of 10/11, has sustained with rates 100-120s since. -IV lopressor 2.5mg x 3 and did not convert -Continue metoprolol and flecainide -Eliquis still on hold (10) Pneumonia: Plan: suspect cause of hypoxia, see above continue Doxycycline and Unasyn - started 10/09 Plan Continued inpatient stay Admission and Anticipated Discharge Date Admission Date: October 09, 2023 Supervising Physician Co-Signing Physician Notes Attending Attestation - Chart reviewed, care plan d/w GIACOMO Alfaro. I agree w/ the palmer components of her documentation. Caio Smith MD Subjective patient seen sitting up in bed, Daughter Shahnaz at bedside. Still experiencing some disorientation for anesthesia. Does report pain in R hip. Asking for something to drink. Denies CP or SOB. Tele - Afib 90-120s Review of Systems Review of Systems: All systems reviewed & are unremarkable except as noted in Subjective Physical Exam Physical Exam: General: WN/WD, NAD, VS as above Resp: normal respiratory effort, no accessory muscle use, able to speak in full sentences, CTA CV: RRR, no murmur, no edema Abd: normal bowel sounds, non tender, no hepatosplenomegaly Extremities:distal pulses intact bilaterally. Ice pack over R hip Neuro: A&O x3, Skin: intact, no lesions noted Results & Data Results & Data Vital Signs (Past 12 Hours) Vital Signs Temp Pulse Pulse Pulse Resp BP BP 10/13/23 15:46 36.7 C 101 H 18 108/64 12/07/23 15:38 36.6 C 95 H 18 98/54 L 10/13/23 15:24 130 H 10/13/23 15:00 36.5 C 110 H 17 108/62 10/13/23 14:50 110 H 12 105/54 L 10/13/23 14:40 128 H 16 115/53 L 10/13/23 14:30 127 H 25 H 112/68 10/13/23 14:20 122 H 14 132/68 123/82 10/13/23 14:10 118 H 16 138/62 123/85 10/13/23 14:00 108 H 17 123/59 L 105/50 L 10/13/23 13:52 36.5 C 121 H 17 107/67 108/64 10/13/23 10:10 122 H 10/13/23 10:10 36.7 C 123 H 16 133/71 10/13/23 07:59 36.5 C 99 H 18 126/59 L 10/13/23 07:40 10/13/23 06:06 10/13/23 04:05 36.6 C 102 H 20 129/76 Pulse Ox O2 Del Method O2 Flow Rate 10/13/23 15:46 93 Nasal Cannula 4 10/13/23 15:38 94 Nasal Cannula 4 10/13/23 15:24 10/13/23 15:00 92 Nasal Cannula 4 10/13/23 14:50 92 Nasal Cannula 4 10/13/23 14:40 92 Nasal Cannula 4 10/13/23 14:30 90 Nasal Cannula 4 10/13/23 14:20 93 Nasal Cannula 4 10/13/23 14:10 93 Oxymask 10 10/13/23 14:00 91 Oxymask 10 10/13/23 13:52 90 Oxymask 10 10/13/23 10:10 10/13/23 10:10 94 Nasal Cannula 4 10/13/23 07:59 92 Room Air 10/13/23 07:40 Nasal Cannula 3 10/13/23 06:06 94 Nasal Cannula 3 10/13/23 04:05 94 Nasal Cannula 4 Laboratory Results CBC and chemistry reviewed PG Care Time/CCT Total # of Minutes Spent Total Time Spent with Patient: Total time spent is greater than 50% in coordination of care (as documented) at patient's floor/unit and/or counseling patient: Coding Level of Care Code 11668 SUB INP/OBS CARE MIN Diagnoses Fall W19.XXXA Closed right hip fracture S72.001A Encounter type: initial encounter Hypoxia R09.02 Leukocytosis D72.829 Leukocytosis type: unspecified Troponin level elevated R79.89 Rhabdomyolysis M62.82 Encounter type: initial encounter (HFpEF) heart failure with preserved ejection fraction I50.30 Hypertension I10 Paroxysmal atrial fibrillation I48.0 Pneumonia J18.9 (2) Closed right hip fracture Encounter type: initial encounter Qualified Code(s): S72.001A - Fracture of unspecified part of neck of right femur, initial encounter for closed fracture (4) Leukocytosis Leukocytosis type: unspecified Qualified Code(s): D72.829 - Elevated white blood cell count, unspecified (6) Rhabdomyolysis Encounter type: initial encounter
[2023-10-13] MEDS ORDERED: bisacodyL 10 MG SUPP PR PRN (16:41)
[2023-10-13] MEDS ORDERED: METOCLOPRAMIDE HCL INJ 5 MG/ML 2 ML VIAL IV PRN (16:41)
[2023-10-13] MEDS ORDERED: MAGNESIUM HYDROXIDE SUSP 30 ML UDC PO PRN (16:41)
[2023-10-13] MEDS: DOCUSATE SODIUM 100 MG CAP PO SCH (20:42)
[2023-10-13] MEDS: POLYETHYLENE (MIRALAX) 17 GM PACK PO SCH (20:43)
[2023-10-13] MEDS: SENNA 8.6 MG TAB PO SCH (20:43)
[2023-10-13] MEDS: ceFAZolin 2000MG 2,000 MG/15 ML SYR IV SCH (20:45)
[2023-10-14] MEDS: AMPICILLIN/SULBACTAM SOD 3,000 MG in SODIUM CHLOR 0.9% MINI-B 100 ML IV SCH ×3 (03:47→16:30)
[2023-10-14] MEDS: ceFAZolin 2000MG 2,000 MG/15 ML SYR IV SCH (03:47)
[2023-10-14] MEDS: ONDANSETRON INJ 2 MG/ML 2 ML VIAL IV PRN (03:48)
[2023-10-14] MEDS: SODIUM CHLORIDE 0.9% 1,000 ML IV SCH ×2 (03:48→15:22)
[2023-10-14] MEDS: MoRPHine SULFATE 2 MG/ML CARP IV PRN ×2 (03:48→11:31)
[2023-10-14] MEDS ORDERED: METOPROLOL TARTRATE 1 MG/ML VIAL IV STA ×2 (04:11→09:34)
[2023-10-14 06:36] LABS: Basophils # (auto) 0.02 K/uL (0.00-0.20); Basophils % (auto) 0.2 %; Hematocrit (blood only) 33.8 % (37.0-47.0); Hemoglobin 10.2 g/dl (12.0-16.0); Immature Granulocytes # (auto) 0.08 K/uL (0.01-0.20); Immature Granulocytes % (auto) 0.7 %; Lymphocytes # (auto) 1.16 K/uL (1.20-3.40); Lymphocytes % (auto) 9.5 %; Mean Corpuscular Hemoglobin 20.6 pg (25.0-34.0); Mean Corpuscular Hgb Conc 30.2 g/dL (32.0-36.0); Mean Corpuscular Volume 68.4 fL (80.0-100.0); Monocytes # (auto) 1.38 K/uL (0.11-0.59); Monocytes % (auto) 11.3 %; Neutrophils # (auto) 9.55 K/uL (1.40-6.50); Neutrophils % (auto) 78.3 %; RDW Coefficient of Variation 14.5 % (11.5-14.5); RDW Standard Deviation 35.5 fL (36.4-46.3); Red Blood Count 4.94 M/uL (4.20-5.40); White Blood Count 12.19 K/ul (4.8-10.8)
[2023-10-14 06:57] LABS: Platelet Count 164 K/uL (130-400)
[2023-10-14 07:12] LABS: Hypochromasia Present; Microcytosis Present; Ovalocytes 1+; Poikilocytosis Present; Polychromasia 1+; Tear Drop Cells 1+
[2023-10-14 07:14] LABS: Albumin Globulin Ratio 1.3 (0.9-2); Albumin Level 3.1 gm/dl (3.4-5.0); BUN Creatinine Ratio 26.4 (10-20); Bilirubin,Total 0.9 mg/dl (0.2-1.0); Calcium 8.5 mg/dl (8.6-10.3); Creatinine Clr Calc Pharmacy 80.7 ml/min; Est GFR (African American) 98.3 ml/min; Est GFR (Non-African American) 84.8 ml/min; Globulin 2.3 gm/dl (2.5-4.0); Potassium 3.8 mmol/L (3.5-5.1); Total Protein 5.4 gm/dl (6.0-8.3)
--- NOTE | 2023-10-14 08:22 | Orthopedic Progress Note ---
Date of Service October 14, 2023 Assessment & Plan (1) Closed right hip fracture: Plan: 88 yo female stable POD #1 s/p right hip hemiarthroplasty 1. Med management 2. DVT prophylaxis- may resume Eliquis today 24 hrs postop, SCDs 3. PT/OT 4. D/C planning- Admission and Anticipated Discharge Date Admission Date: October 09, 2023 Subjective Pt resting in bed, denies significant pain Physical Exam Physical Exam: Silverlon dressing intact, thigh soft, toes mobile, NVI Results & Data Vital Signs (Past 12 Hours) Vital Signs Temp Pulse Pulse Pulse Resp BP BP 10/14/23 04:36 120 H 124/68 10/14/23 04:21 134 H 132/71 10/14/23 04:20 134 H 22 132/71 10/14/23 03:02 36.8 C 110 H 20 131/75 10/14/23 00:58 130 H 120/71 10/14/23 00:58 10/14/23 00:33 110 H 20 10/13/23 23:52 10/13/23 23:43 36.6 C 103 H 24 118/56 L 10/13/23 21:51 132 H Pulse Ox O2 Del Method O2 Flow Rate 10/14/23 04:36 10/14/23 04:21 10/14/23 04:20 92 Nasal Cannula 4 10/14/23 03:02 92 Nasal Cannula 4 10/14/23 00:58 92 Nasal Cannula 4 10/14/23 00:58 78 L Room Air 10/14/23 00:33 94 Nasal Cannula 3 10/13/23 23:52 Nasal Cannula 3 10/13/23 23:43 92 Nasal Cannula 3 10/13/23 21:51 Laboratory Results 10/14/23 Range/Units 05:41 WBC 12.19 H (4.8-10.8) K/ul RBC 4.94 (4.20-5.40) M/uL Hgb 10.2 L (12.0-16.0) g/dl Hct 33.8 L (37.0-47.0) % MCV 68.4 L (80.0-100.0) fL MCH 20.6 L (25.0-34.0) pg MCHC 30.2 L (32.0-36.0) g/dL RDW Std Deviation 35.5 L (36.4-46.3) fL RDW Coeff of Mikayla 14.5 (11.5-14.5) % Plt Count 164 (130-400) K/uL MPV 11.0 (9.4-12.4) fL Immature Gran % (Auto) 0.7 % Neut % (Auto) 78.3 % Lymph % (Auto) 9.5 % [place] % (Auto) 11.3 % Eos % (Auto) 0.0 % Baso % (Auto) 0.2 % Neut # (Auto) 9.55 H (1.40-6.50) K/uL Lymph # (Auto) 1.16 L (1.20-3.40) K/uL [place] # (Auto) 1.38 H (0.11-0.59) K/uL Eos # (Auto) 0.00 (0.00-0.50) K/uL Baso # (Auto) 0.02 (0.00-0.20) K/uL Immature Gran # (Auto) 0.08 (0.01-0.20) K/uL Polychromasia 1+ Hypochromasia Present Poikilocytosis Present Microcytosis Present Tear Drop Cells 1+ Ovalocytes 1+ Sodium 139 (136-145) mmol/L Potassium 3.8 (3.5-5.1) mmol/L Chloride 106 (98-107) mmol/L Carbon Dioxide 27 (21-32) mmol/L Anion Gap 6 (3-11) BUN 14 (6-23) mg/dl Creatinine 0.53 L (0.6-1.2) mg/dl Est Cr Clr Drug Dosing 80.7 ml/min Est GFR ( Amer) 98.3 ml/min Est GFR (Non-Af Amer) 84.8 ml/min BUN/Creatinine Ratio 26.4 H (10-20) Glucose 124 H (70-99(Fasting)) mg/dl Calcium 8.5 L (8.6-10.3) mg/dl Total Bilirubin 0.9 D (0.2-1.0) mg/dl AST 25 (13-39) U/L ALT 19 (7-52) U/L Alkaline Phosphatase 58 (34-104) U/L Total Protein 5.4 L (6.0-8.3) gm/dl Albumin 3.1 L (3.4-5.0) gm/dl Globulin 2.3 L (2.5-4.0) gm/dl Albumin/Globulin Ratio 1.3 (0.9-2) (1) Closed right hip fracture Encounter type: initial encounter Qualified Code(s): S72.001A - Fracture of unspecified part of neck of right femur, initial encounter for closed fracture
[2023-10-14] MEDS: CHOLECALCIFEROL 1,000 UNITS 25 MCG TAB PO SCH (08:55)
[2023-10-14] MEDS: SERTRALINE HCL 50 MG TABLET PO SCH (08:55)
[2023-10-14] MEDS: FLECAINIDE ACETATE 100 MG TABLET PO SCH ×2 (08:56→21:49)
[2023-10-14] MEDS: METOPROLOL SUCC 50MG EXT REL TAB PO SCH (08:56)
[2023-10-14] MEDS: PANTOprazole 40 MG TAB PO SCH ×2 (08:56→21:49)
[2023-10-14] MEDS: MULTIVITAMIN TAB PO SCH (08:57)
[2023-10-14] MEDS: DOCUSATE SODIUM 100 MG CAP PO SCH ×2 (08:57→21:48)
[2023-10-14] MEDS: clonazePAM 0.5 MG TAB PO SCH ×2 (08:59→21:47)
[2023-10-14] MEDS: POLYETHYLENE (MIRALAX) 17 GM PACK PO SCH (09:00)
--- NOTE | 2023-10-14 10:04 | Hospitalist Progress Note ---
Date of Service October 14, 2023 Assessment & Plan (1) Fall: Plan: -Patient sustained a mechanical fall in the late morning on 10/08 while attempting to sit on a chair in her living room, was likely on ground for 24 hours before being found by her daughter -Only signs of trauma at this time are her right hip fracture and bruising over the dorsum of the left foot -Xray: Nondisplaced fracture at the base of fifth proximal phalanx LEFT foot (2) Closed right hip fracture: Plan: Age-related osteoporotic fracture of the right hip -Noted on xray of the right hip/pelvis 10/09 - Right hip hemiarthroplasty with Dr. Christian 10/13 -Pain control per surgery -Resume Eliquis BID -PT/OT -10/11: Vit D level: 15.7, 2000 units daily ordered -PRN tylenol and morphine for pain -Will need rehab placement (3) Hypoxia: Plan: -Patient was reportedly hypoxic for EMS on arrival -No sign of pneumonia on CXR, no respiratory distress on admission -10/09: CT of the thoracic spine mentions mild pulmonary edema and small BL pleural effusions, lung exam is essentially clear -Patient also mentions that she is often started on O2 while admitted and sleeping, likely has some component of EDGAR and/or obesity hypoventilation syndrome -10/10: CXR without signs of pneumonia, CTA without PE -Incentive spirometry, flutter therapy, prn O2 to keep SpO2 at or above 94% (4) Paroxysmal atrial fibrillation: Plan: -Flipped to Afib evening of 10/11, has sustained with rates now 130s -Discussed case with Dr. Bland, cardiology - increase flecainide to 150mg BID and continue IV Lopressor as BP allows -Continue metoprolol 100mg QD -Resume Eliquis today (5) Leukocytosis: Plan: -Patient with WBC of 22 with neutrophil predominance of 19 on admission -Febrile overnight 10/09 --> will treat as infection - Continue Unasyn and doxycycline - started 10/09 PM will discontinue after PM dose today after 6 days of treatment -Will obtain blood cultures on admission, unfortunately she was given Zosyn and no blood cultures were obtain in the ED -No growth at 48 hours (6) Troponin level elevated: Plan: Demand ischemia -Initial high sen trop elevated at 157 ---> 209 on 2 hour repeat, continues to downtrend, most recent 117.2 -Initial CK level elevated at 1284 --> 743 -Patient denies chest pain -ECG shows possible RBBB with ST depression in the anterior leads -Likely due to demand from falling and being on the ground for approximately 24 hours -10/10 Echo: mild LVH, EF 60-65% (7) Rhabdomyolysis: Plan: -Initial CK elevated at 1284 --> 743 -Improved - renal function and LFTs WNLs (8) (HFpEF) heart failure with preserved ejection fraction: Plan: Acute on chronic HFpEF -Patient appeared dehydrated on admission despite mild pulmonary edema and small BL pleural effusions on thoracic spine CT - Given 40mg lasix IV in the ED -No significant fluid on auscultation of lungs on admission -BNP: 802 -Daily weight (9) Hypertension: Plan: -Stable -Will continue home metoprolol, mainly for afib -Home amlodipine and lisinopril initially held in the setting of dehydration and rhabdomyolysis - will continue to hold as pressures have been stable without (10) Pneumonia: Plan: suspect cause of hypoxia, see above - Doxycycline and Unasyn - started 10/09 will d/c after dosing tonight Plan Continued inpatient stay Admission and Anticipated Discharge Date Admission Date: October 09, 2023 Supervising Physician Co-Signing Physician Notes Attending Attestation - Chart reviewed, care plan d/w GIACOMO Alfaro. I agree w/ the palmer components of her documentation. Appreciate input from [facility] re: a.fib rate control. Caio Smith MD Subjective 0940 - Patient seen siting up in bed. States she feels like her Right leg is as big as two legs. Did not sleep well last night. Reports good appetite. Can feel that her heart rate is fast but denies CP or SOB. Tele - persistent afib, 160s overnight, has not been below 100 recently Review of Systems Review of Systems: All systems reviewed & are unremarkable except as noted in Subjective Physical Exam Physical Exam: General: WN/WD, NAD, VS as above Resp: normal respiratory effort, no accessory muscle use, able to speak in full sentences, CTA CV: RRR, no murmur, no edema Abd: normal bowel sounds, non tender, no hepatosplenomegaly Extremities:distal pulses intact bilaterally. Ice pack over R hip, dressing c/d/i Neuro: A&O x3, Skin: intact, no lesions noted Results & Data Results & Data Vital Signs (Past 12 Hours) Vital Signs Temp Pulse Pulse Pulse Resp BP BP 10/14/23 08:31 36.7 C 127 H 18 146/74 H 10/14/23 04:36 120 H 124/68 10/14/23 04:21 134 H 132/71 10/14/23 04:20 134 H 22 132/71 10/14/23 03:02 36.8 C 110 H 20 131/75 10/14/23 00:58 130 H 120/71 10/14/23 00:58 10/14/23 00:33 110 H 20 10/13/23 23:52 10/13/23 23:43 36.6 C 103 H 24 118/56 L Pulse Ox O2 Del Method O2 Flow Rate 10/14/23 08:31 93 Nasal Cannula 4 10/14/23 04:36 10/14/23 04:21 10/14/23 04:20 92 Nasal Cannula 4 10/14/23 03:02 92 Nasal Cannula 4 10/14/23 00:58 92 Nasal Cannula 4 10/14/23 00:58 78 L Room Air 10/14/23 00:33 94 Nasal Cannula 3 10/13/23 23:52 Nasal Cannula 3 10/13/23 23:43 92 Nasal Cannula 3 Laboratory Results CBC and CMP reviewed PG Care Time/CCT Total # of Minutes Spent Total Time Spent with Patient: Total time spent is greater than 50% in coordination of care (as documented) at patient's floor/unit and/or counseling patient: Coding Level of Care Code 32556 SUB INP/OBS CARE 3/50MIN Diagnoses Fall W19.XXXA Closed right hip fracture S72.001A Encounter type: initial encounter Hypoxia R09.02 Paroxysmal atrial fibrillation I48.0 Leukocytosis D72.829 Leukocytosis type: unspecified Troponin level elevated R79.89 Rhabdomyolysis M62.82 Encounter type: initial encounter (HFpEF) heart failure with preserved ejection fraction I50.30 Hypertension I10 Pneumonia J18.9 (2) Closed right hip fracture Encounter type: initial encounter Qualified Code(s): S72.001A - Fracture of unspecified part of neck of right femur, initial encounter for closed fracture (5) Leukocytosis Leukocytosis type: unspecified Qualified Code(s): D72.829 - Elevated white blood cell count, unspecified (7) Rhabdomyolysis Encounter type: initial encounter
[2023-10-14] MEDS: DOXYCYCLINE HYCLATE 100 MG in DEXTROSE 5% MINI-B 100 ML IV SCH (11:30)
[2023-10-14] MEDS: APIXABAN 5 MG TABLET PO SCH ×2 (17:54→21:52)
[2023-10-14] MEDS: ACETAMINOPHEN 325 MG TAB PO PRN (17:58)
[2023-10-14] MEDS: SENNA 8.6 MG TAB PO SCH (21:48)
[2023-10-15 06:11] LABS: Hematocrit (blood only) 29.1 % (37.0-47.0); Hemoglobin 9.3 g/dl (12.0-16.0); Mean Corpuscular Hemoglobin 21.2 pg (25.0-34.0); Mean Corpuscular Volume 66.3 fL (80.0-100.0); Mean Platelet Volume 10.9 fL (9.4-12.4); Platelet Count 174 K/uL (130-400); RDW Coefficient of Variation 14.6 % (11.5-14.5); RDW Standard Deviation 34.5 fL (36.4-46.3); Red Blood Count 4.39 M/uL (4.20-5.40); White Blood Count 12.63 K/ul (4.8-10.8)
[2023-10-15 06:33] LABS: BUN Creatinine Ratio 27.5 (10-20); Calcium 8.3 mg/dl (8.6-10.3); Creatinine Clr Calc Pharmacy 83.8 ml/min; Est GFR (African American) 99.5 ml/min; Est GFR (Non-African American) 85.9 ml/min; Potassium 3.7 mmol/L (3.5-5.1)
--- NOTE | 2023-10-15 08:01 | Orthopedic Progress Note ---
Date of Service October 15, 2023 Assessment & Plan (1) Closed right hip fracture: Plan: 88 yo female stable POD #2 s/p right hip hemiarthroplasty 1. Med management 2. DVT prophylaxis- may resume Eliquis 24 hrs postop, SCDs 3. PT/OT: Weightbearing as tolerated. 4. D/C planning-likely will need rehab versus SNF placement. Orthopedics will sign off at this time. Patient will need follow-up with Dr. Long's clinic 12 to 14 days postoperatively. She can call [phone] for an appointment. Please call with any questions or concerns. Thank you. Admission and Anticipated Discharge Date Admission Date: October 09, 2023 Subjective Patient is resting in bed comfortably. Pain is controlled currently. No other complaints at this time. Denies chest pain, shortness of breath, nausea/vomiting/diarrhea, headaches or dizziness. Review of Systems Review of Systems: All systems reviewed & are unremarkable except as noted in Subjective Physical Exam Physical Exam: Right hip: Silverlon dressing is clean, dry, intact. Compartments are soft and compressible, mild swelling. No calf tenderness. Toes are mobile with good dorsiflexion. Distal neurovascular status and sensation is grossly intact. Results & Data Vital Signs (Past 12 Hours) Vital Signs Temp Pulse Pulse Resp BP Pulse Ox O2 Del Method 10/15/23 07:15 131 H 10/15/23 03:25 37.0 C 112 H 18 109/69 93 Nasal Cannula 10/15/23 00:08 Nasal Cannula 10/14/23 23:56 36.6 C 115 H 18 106/54 L 94 Nasal Cannula 10/14/23 22:01 124 H 10/14/23 20:00 37.0 C 118 H 18 106/70 93 Nasal Cannula O2 Flow Rate 10/15/23 07:15 10/15/23 03:25 4 10/15/23 00:08 4 10/14/23 23:56 4 10/14/23 22:01 10/14/23 20:00 4 Laboratory Results Lab Results 10/09/23 10/09/23 10/09/23 Range/Units 13:07 13:29 14:43 WBC 22.90 H (4.8-10.8) K/ul RBC 6.72 H (4.20-5.40) M/uL Hgb 14.1 (12.0-16.0) g/dl Hct 45.1 (37.0-47.0) % MCV 67.1 L (80.0-100.0) fL MCH 21.0 L (25.0-34.0) pg MCHC 31.3 L (32.0-36.0) g/dL RDW Std Deviation 34.9 L (36.4-46.3) fL RDW Coeff of Mikayla 17.4 H (11.5-14.5) % Plt Count 202 (130-400) K/uL MPV 10.4 (9.4-12.4) fL Immature Gran % (Auto) 0.9 % Neut % (Auto) 86.1 % Lymph % (Auto) 5.8 % [place] % (Auto) 6.9 % Eos % (Auto) 0.0 % Baso % (Auto) 0.3 % Neut # (Auto) 19.70 H (1.40-6.50) K/uL Lymph # (Auto) 1.33 (1.20-3.40) K/uL [place] # (Auto) 1.58 H (0.11-0.59) K/uL Eos # (Auto) 0.01 (0.00-0.50) K/uL Baso # (Auto) 0.07 (0.00-0.20) K/uL Immature Gran # (Auto) 0.21 H (0.01-0.20) K/uL Absolute Nucleated RBC 0.03 (0.00-0.12) K/uL Nucleated RBC % (auto) 0.1 % Polychromasia 1+ Hypochromasia Poikilocytosis Microcytosis Present Target Cells 1+ Tear Drop Cells Ovalocytes 1+ PT (9.0-12.0) Seconds INR (0.9-1.1) Sodium TNP Potassium TNP Chloride 103 (98-107) mmol/L Carbon Dioxide 25 (21-32) mmol/L Anion Gap TNP BUN 17 (6-23) mg/dl Creatinine 0.73 (0.6-1.2) mg/dl Est Cr Clr Drug Dosing 57.8 ml/min Est GFR ( Amer) 85.2 ml/min Est GFR (Non-Af Amer) 73.5 ml/min BUN/Creatinine Ratio 23.3 H (10-20) Glucose 143 H (70-99(Fasting)) mg/dl Calcium 9.1 (8.6-10.3) mg/dl Magnesium (1.7-2.4) mg/dl Total Bilirubin 2.1 H (0.2-1.0) mg/dl AST TNP ALT 27 (7-52) U/L Alkaline Phosphatase 75 (34-104) U/L Total Creatine Kinase (26-192) U/L Troponin I High Sens 157.8 H* (0-14) pg/ml B-Natriuretic Peptide (0-100) pg/ml Total Protein 7.2 (6.0-8.3) gm/dl Albumin 4.4 (3.4-5.0) gm/dl Globulin 2.8 (2.5-4.0) gm/dl Albumin/Globulin Ratio 1.6 (0.9-2) 25-OH Vitamin D Total (30-100) ng/ml Procalcitonin Cancelled Urine Color Yellow Urine Appearance Clear (Clear) Urine pH 6.5 (4.5-7.5) Ur Specific [place] 1.020 (1.000-1.030) Urine Protein 2+ H (Negative) Urine Glucose (UA) Negative (Negative) Urine Ketones 1+ H (Negative) Urine Blood 2+ H (Negative) Urine Nitrite Negative (Negative) Urine Bilirubin Negative (Negative) Urine Urobilinogen Negative (Negative) Ur Leukocyte Esterase Negative (Negative) Urine WBC (Auto) 1-5 (0-5) /hpf Urine RBC (Auto) 5-10 H (0-4) /hpf U Hyaline Cast (Auto) 0 (0-5) /lpf U Epithel Cells (Auto) 10-20 H (0-5) /lpf Urine Bacteria (Auto) Negative (Negative) Nasal Screen MRSA (PCR) (Negative) Adenovirus (PCR) Not Detected (NotDetected) B. pertussis DNA (PCR) Not Detected (NotDetected) B.parapertussis DNA PCR Not Detected (NotDetected) C. pneumoniae DNA (PCR) Not Detected (NotDetected) Coronavirus OC43 (PCR) Not Detected (NotDetected) Coronavirus HKU1 (PCR) Not Detected (NotDetected) Coronavirus 229E (PCR) Not Detected (NotDetected) SARS-CoV-2 (PCR) Not Detected (NotDetected) Coronavirus NL63 (PCR) Not Detected (NotDetected) Human Metapneumovir PCR Not Detected (NotDetected) Influenza Type A (PCR) Not Detected (NotDetected) Influenza Type B (PCR) Not Detected (NotDetected) M. pneumoniae (PCR) Not Detected (NotDetected) Parainfluenza 1 (PCR) Not Detected (NotDetected) Parainfluenza 2 (PCR) Not Detected (NotDetected) Parainfluenza 3 (PCR) Not Detected (NotDetected) Parainfluenza 4 (PCR) Not Detected (NotDetected) RSV (PCR) Not Detected (NotDetected) Entero/Rhino (PCR) Not Detected (NotDetected) Blood Type Antibody Screen 10/09/23 10/09/23 10/09/23 Range/Units 15:46 16:46 20:09 WBC (4.8-10.8) K/ul RBC (4.20-5.40) M/uL Hgb (12.0-16.0) g/dl Hct (37.0-47.0) % MCV (80.0-100.0) fL MCH (25.0-34.0) pg MCHC (32.0-36.0) g/dL RDW Std Deviation (36.4-46.3) fL RDW Coeff of Mikayla (11.5-14.5) % Plt Count (130-400) K/uL MPV (9.4-12.4) fL Immature Gran % (Auto) % Neut % (Auto) % Lymph % (Auto) % [place] % (Auto) % Eos % (Auto) % Baso % (Auto) % Neut # (Auto) (1.40-6.50) K/uL Lymph # (Auto) (1.20-3.40) K/uL [place] # (Auto) (0.11-0.59) K/uL Eos # (Auto) (0.00-0.50) K/uL Baso # (Auto) (0.00-0.20) K/uL Immature Gran # (Auto) (0.01-0.20) K/uL Absolute Nucleated RBC (0.00-0.12) K/uL Nucleated RBC % (auto) % Polychromasia Hypochromasia Poikilocytosis Microcytosis Target Cells Tear Drop Cells Ovalocytes PT (9.0-12.0) Seconds INR (0.9-1.1) Sodium 139 137 Potassium 4.2 3.6 Chloride 102 (98-107) mmol/L Carbon Dioxide 26 (21-32) mmol/L Anion Gap 9 BUN 17 (6-23) mg/dl Creatinine 0.77 (0.6-1.2) mg/dl Est Cr Clr Drug Dosing 54.8 ml/min Est GFR ( Amer) 79.9 ml/min Est GFR (Non-Af Amer) 68.9 ml/min BUN/Creatinine Ratio 22.1 H (10-20) Glucose 136 H (70-99(Fasting)) mg/dl Calcium 8.9 (8.6-10.3) mg/dl Magnesium (1.7-2.4) mg/dl Total Bilirubin 2.2 H (0.2-1.0) mg/dl AST 61 H 61 H ALT 25 (7-52) U/L Alkaline Phosphatase 70 (34-104) U/L Total Creatine Kinase 1284 H 1014 H (26-192) U/L Troponin I High Sens 209.7 H* D 223.8 H* (0-14) pg/ml B-Natriuretic Peptide 802 H (0-100) pg/ml Total Protein 6.2 (6.0-8.3) gm/dl Albumin 3.8 (3.4-5.0) gm/dl Globulin 2.4 L (2.5-4.0) gm/dl Albumin/Globulin Ratio 1.6 (0.9-2) 25-OH Vitamin D Total (30-100) ng/ml Procalcitonin 0.47 Urine Color Urine Appearance (Clear) Urine pH (4.5-7.5) Ur Specific [place] (1.000-1.030) Urine Protein (Negative) Urine Glucose (UA) (Negative) Urine Ketones (Negative) Urine Blood (Negative) Urine Nitrite (Negative) Urine Bilirubin (Negative) Urine Urobilinogen (Negative) Ur Leukocyte Esterase (Negative) Urine WBC (Auto) (0-5) /hpf Urine RBC (Auto) (0-4) /hpf U Hyaline Cast (Auto) (0-5) /lpf U Epithel Cells (Auto) (0-5) /lpf Urine Bacteria (Auto) (Negative) Nasal Screen MRSA (PCR) (Negative) Adenovirus (PCR) (NotDetected) B. pertussis DNA (PCR) (NotDetected) B.parapertussis DNA PCR (NotDetected) C. pneumoniae DNA (PCR) (NotDetected) Coronavirus OC43 (PCR) (NotDetected) Coronavirus HKU1 (PCR) (NotDetected) Coronavirus 229E (PCR) (NotDetected) SARS-CoV-2 (PCR) (NotDetected) Coronavirus NL63 (PCR) (NotDetected) Human Metapneumovir PCR (NotDetected) Influenza Type A (PCR) (NotDetected) Influenza Type B (PCR) (NotDetected) M. pneumoniae (PCR) (NotDetected) Parainfluenza 1 (PCR) (NotDetected) Parainfluenza 2 (PCR) (NotDetected) Parainfluenza 3 (PCR) (NotDetected) Parainfluenza 4 (PCR) (NotDetected) RSV (PCR) (NotDetected) Entero/Rhino (PCR) (NotDetected) Blood Type O Positive Antibody Screen NEGATIVE 10/10/23 10/10/23 10/10/23 Range/Units 00:50 02:13 07:40 WBC 19.39 H (4.8-10.8) K/ul RBC 5.68 H (4.20-5.40) M/uL Hgb 12.2 (12.0-16.0) g/dl Hct 37.3 (37.0-47.0) % MCV 65.7 L (80.0-100.0) fL MCH 21.5 L (25.0-34.0) pg MCHC 32.7 (32.0-36.0) g/dL RDW Std Deviation 35.1 L (36.4-46.3) fL RDW Coeff of Mikayla 15.7 H (11.5-14.5) % Plt Count 179 (130-400) K/uL MPV 9.8 (9.4-12.4) fL Immature Gran % (Auto) 0.6 % Neut % (Auto) 83.6 % Lymph % (Auto) 8.1 % [place] % (Auto) 7.4 % Eos % (Auto) 0.1 % Baso % (Auto) 0.2 % Neut # (Auto) 16.21 H (1.40-6.50) K/uL Lymph # (Auto) 1.57 (1.20-3.40) K/uL [place] # (Auto) 1.44 H (0.11-0.59) K/uL Eos # (Auto) 0.02 (0.00-0.50) K/uL Baso # (Auto) 0.04 (0.00-0.20) K/uL Immature Gran # (Auto) 0.11 (0.01-0.20) K/uL Absolute Nucleated RBC (0.00-0.12) K/uL Nucleated RBC % (auto) % Polychromasia 1+ Hypochromasia Poikilocytosis Microcytosis Present Target Cells Tear Drop Cells Ovalocytes 1+ PT 12.5 H (9.0-12.0) Seconds INR 1.2 H (0.9-1.1) Sodium 138 Potassium 3.5 Chloride 102 (98-107) mmol/L Carbon Dioxide 28 (21-32) mmol/L Anion Gap 8 BUN 18 (6-23) mg/dl Creatinine 0.87 (0.6-1.2) mg/dl Est Cr Clr Drug Dosing 48.5 ml/min Est GFR ( Amer) 68.9 ml/min Est GFR (Non-Af Amer) 59.5 ml/min BUN/Creatinine Ratio 20.7 H (10-20) Glucose 134 H (70-99(Fasting)) mg/dl Calcium 8.8 (8.6-10.3) mg/dl Magnesium 1.8 (1.7-2.4) mg/dl Total Bilirubin 1.9 H (0.2-1.0) mg/dl AST 58 H ALT 24 (7-52) U/L Alkaline Phosphatase 66 (34-104) U/L Total Creatine Kinase 743 H (26-192) U/L Troponin I High Sens 118.6 H* D 129.5 H* (0-14) pg/ml B-Natriuretic Peptide (0-100) pg/ml Total Protein 5.9 L (6.0-8.3) gm/dl Albumin 3.6 (3.4-5.0) gm/dl Globulin 2.3 L (2.5-4.0) gm/dl Albumin/Globulin Ratio 1.6 (0.9-2) 25-OH Vitamin D Total (30-100) ng/ml Procalcitonin Urine Color Urine Appearance (Clear) Urine pH (4.5-7.5) Ur Specific [place] (1.000-1.030) Urine Protein (Negative) Urine Glucose (UA) (Negative) Urine Ketones (Negative) Urine Blood (Negative) Urine Nitrite (Negative) Urine Bilirubin (Negative) Urine Urobilinogen (Negative) Ur Leukocyte Esterase (Negative) Urine WBC (Auto) (0-5) /hpf Urine RBC (Auto) (0-4) /hpf U Hyaline Cast (Auto) (0-5) /lpf U Epithel Cells (Auto) (0-5) /lpf Urine Bacteria (Auto) (Negative) Nasal Screen MRSA (PCR) Negative (Negative) Adenovirus (PCR) (NotDetected) B. pertussis DNA (PCR) (NotDetected) B.parapertussis DNA PCR (NotDetected) C. pneumoniae DNA (PCR) (NotDetected) Coronavirus OC43 (PCR) (NotDetected) Coronavirus HKU1 (PCR) (NotDetected) Coronavirus 229E (PCR) (NotDetected) SARS-CoV-2 (PCR) (NotDetected) Coronavirus NL63 (PCR) (NotDetected) Human Metapneumovir PCR (NotDetected) Influenza Type A (PCR) (NotDetected) Influenza Type B (PCR) (NotDetected) M. pneumoniae (PCR) (NotDetected) Parainfluenza 1 (PCR) (NotDetected) Parainfluenza 2 (PCR) (NotDetected) Parainfluenza 3 (PCR) (NotDetected) Parainfluenza 4 (PCR) (NotDetected) RSV (PCR) (NotDetected) Entero/Rhino (PCR) (NotDetected) Blood Type Antibody Screen 1210/10/23 10/11/23 Range/Units 14:33 20:33 01:49 WBC 13.28 H (4.8-10.8) K/ul RBC 5.25 (4.20-5.40) M/uL Hgb 10.9 L (12.0-16.0) g/dl Hct 36.1 L (37.0-47.0) % MCV 68.8 L (80.0-100.0) fL MCH 20.8 L (25.0-34.0) pg MCHC 30.2 L (32.0-36.0) g/dL RDW Std Deviation 37.5 (36.4-46.3) fL RDW Coeff of Mikayla 15.5 H (11.5-14.5) % Plt Count 148 (130-400) K/uL MPV 9.7 (9.4-12.4) fL Immature Gran % (Auto) 0.5 % Neut % (Auto) 76.1 % Lymph % (Auto) 10.8 % [place] % (Auto) 9.7 % Eos % (Auto) 2.6 % Baso % (Auto) 0.3 % Neut # (Auto) 10.10 H (1.40-6.50) K/uL Lymph # (Auto) 1.44 (1.20-3.40) K/uL [place] # (Auto) 1.29 H (0.11-0.59) K/uL Eos # (Auto) 0.34 (0.00-0.50) K/uL Baso # (Auto) 0.04 (0.00-0.20) K/uL Immature Gran # (Auto) 0.07 (0.01-0.20) K/uL Absolute Nucleated RBC (0.00-0.12) K/uL Nucleated RBC % (auto) % Polychromasia 1+ Hypochromasia Poikilocytosis Microcytosis Present Target Cells Tear Drop Cells Ovalocytes 1+ PT 11.4 (9.0-12.0) Seconds INR 1.0 (0.9-1.1) Sodium 140 Potassium 3.5 Chloride 105 (98-107) mmol/L Carbon Dioxide 31 (21-32) mmol/L Anion Gap 4 BUN 15 (6-23) mg/dl Creatinine 0.61 (0.6-1.2) mg/dl Est Cr Clr Drug Dosing 69.0 ml/min Est GFR ( Amer) 93.8 ml/min Est GFR (Non-Af Amer) 80.9 ml/min BUN/Creatinine Ratio 24.6 H (10-20) Glucose 114 H (70-99(Fasting)) mg/dl Calcium 8.6 (8.6-10.3) mg/dl Magnesium 2.0 (1.7-2.4) mg/dl Total Bilirubin 1.1 H (0.2-1.0) mg/dl AST 37 ALT 21 (7-52) U/L Alkaline Phosphatase 52 (34-104) U/L Total Creatine Kinase (26-192) U/L Troponin I High Sens 117.2 H* 90.8 H* D 79.1 H* D (0-14) pg/ml B-Natriuretic Peptide (0-100) pg/ml Total Protein 5.6 L (6.0-8.3) gm/dl Albumin 3.2 L (3.4-5.0) gm/dl Globulin 2.4 L (2.5-4.0) gm/dl Albumin/Globulin Ratio 1.3 (0.9-2) 25-OH Vitamin D Total 15.7 L (30-100) ng/ml Procalcitonin Urine Color Urine Appearance (Clear) Urine pH (4.5-7.5) Ur Specific [place] (1.000-1.030) Urine Protein (Negative) Urine Glucose (UA) (Negative) Urine Ketones (Negative) Urine Blood (Negative) Urine Nitrite (Negative) Urine Bilirubin (Negative) Urine Urobilinogen (Negative) Ur Leukocyte Esterase (Negative) Urine WBC (Auto) (0-5) /hpf Urine RBC (Auto) (0-4) /hpf U Hyaline Cast (Auto) (0-5) /lpf U Epithel Cells (Auto) (0-5) /lpf Urine Bacteria (Auto) (Negative) Nasal Screen MRSA (PCR) (Negative) Adenovirus (PCR) (NotDetected) B. pertussis DNA (PCR) (NotDetected) B.parapertussis DNA PCR (NotDetected) C. pneumoniae DNA (PCR) (NotDetected) Coronavirus OC43 (PCR) (NotDetected) Coronavirus HKU1 (PCR) (NotDetected) Coronavirus 229E (PCR) (NotDetected) SARS-CoV-2 (PCR) (NotDetected) Coronavirus NL63 (PCR) (NotDetected) Human Metapneumovir PCR (NotDetected) Influenza Type A (PCR) (NotDetected) Influenza Type B (PCR) (NotDetected) M. pneumoniae (PCR) (NotDetected) Parainfluenza 1 (PCR) (NotDetected) Parainfluenza 2 (PCR) (NotDetected) Parainfluenza 3 (PCR) (NotDetected) Parainfluenza 4 (PCR) (NotDetected) RSV (PCR) (NotDetected) Entero/Rhino (PCR) (NotDetected) Blood Type Antibody Screen 10/12/23 10/13/23 10/14/23 Range/Units 05:48 06:24 05:41 WBC 10.04 9.00 12.19 H (4.8-10.8) K/ul RBC 5.23 5.26 4.94 (4.20-5.40) M/uL Hgb 10.8 L 10.9 L 10.2 L (12.0-16.0) g/dl Hct 36.0 L 35.5 L 33.8 L (37.0-47.0) % MCV 68.8 L 67.5 L 68.4 L (80.0-100.0) fL MCH 20.7 L 20.7 L 20.6 L (25.0-34.0) pg MCHC 30.0 L 30.7 L 30.2 L (32.0-36.0) g/dL RDW Std Deviation 36.9 34.5 L 35.5 L (36.4-46.3) fL RDW Coeff of Mikayla 15.0 H 14.6 H 14.5 (11.5-14.5) % Plt Count 160 153 164 (130-400) K/uL MPV 10.9 10.0 11.0 (9.4-12.4) fL Immature Gran % (Auto) 0.5 0.3 0.7 % Neut % (Auto) 67.3 65.2 78.3 % Lymph % (Auto) 15.6 18.1 9.5 % [place] % (Auto) 11.9 11.9 11.3 % Eos % (Auto) 4.4 4.1 0.0 % Baso % (Auto) 0.3 0.4 0.2 % Neut # (Auto) 6.76 H 5.86 9.55 H (1.40-6.50) K/uL Lymph # (Auto) 1.57 1.63 1.16 L (1.20-3.40) K/uL [place] # (Auto) 1.19 H 1.07 H 1.38 H (0.11-0.59) K/uL Eos # (Auto) 0.44 0.37 0.00 (0.00-0.50) K/uL Baso # (Auto) 0.03 0.04 0.02 (0.00-0.20) K/uL Immature Gran # (Auto) 0.05 0.03 0.08 (0.01-0.20) K/uL Absolute Nucleated RBC (0.00-0.12) K/uL Nucleated RBC % (auto) % Polychromasia 1+ 1+ 1+ Hypochromasia Present Present Present Poikilocytosis Present Present Microcytosis Present Present Present Target Cells Tear Drop Cells 2+ 2+ 1+ Ovalocytes 1+ 1+ PT (9.0-12.0) Seconds INR (0.9-1.1) Sodium 142 138 139 Potassium 3.7 3.6 3.8 Chloride 105 104 106 (98-107) mmol/L Carbon Dioxide 31 29 27 (21-32) mmol/L Anion Gap 6 5 6 BUN 16 10 14 (6-23) mg/dl Creatinine 0.55 L 0.39 L 0.53 L (0.6-1.2) mg/dl Est Cr Clr Drug Dosing 76.3 108.0 80.7 ml/min Est GFR ( Amer) 97.1 108.7 98.3 ml/min Est GFR (Non-Af Amer) 83.7 93.8 84.8 ml/min BUN/Creatinine Ratio 29.1 H 25.6 H 26.4 H (10-20) Glucose 96 114 H 124 H (70-99(Fasting)) mg/dl Calcium 8.7 8.6 8.5 L (8.6-10.3) mg/dl Magnesium 2.1 (1.7-2.4) mg/dl Total Bilirubin 1.1 H 1.4 H 0.9 D (0.2-1.0) mg/dl AST 26 23 25 ALT 19 20 19 (7-52) U/L Alkaline Phosphatase 50 52 58 (34-104) U/L Total Creatine Kinase (26-192) U/L Troponin I High Sens (0-14) pg/ml B-Natriuretic Peptide (0-100) pg/ml Total Protein 5.6 L 5.4 L 5.4 L (6.0-8.3) gm/dl Albumin 3.2 L 3.1 L 3.1 L (3.4-5.0) gm/dl Globulin 2.4 L 2.3 L 2.3 L (2.5-4.0) gm/dl Albumin/Globulin Ratio 1.3 1.3 1.3 (0.9-2) 25-OH Vitamin D Total (30-100) ng/ml Procalcitonin Urine Color Urine Appearance (Clear) Urine pH (4.5-7.5) Ur Specific [place] (1.000-1.030) Urine Protein (Negative) Urine Glucose (UA) (Negative) Urine Ketones (Negative) Urine Blood (Negative) Urine Nitrite (Negative) Urine Bilirubin (Negative) Urine Urobilinogen (Negative) Ur Leukocyte Esterase (Negative) Urine WBC (Auto) (0-5) /hpf Urine RBC (Auto) (0-4) /hpf U Hyaline Cast (Auto) (0-5) /lpf U Epithel Cells (Auto) (0-5) /lpf Urine Bacteria (Auto) (Negative) Nasal Screen MRSA (PCR) (Negative) Adenovirus (PCR) (NotDetected) B. pertussis DNA (PCR) (NotDetected) B.parapertussis DNA PCR (NotDetected) C. pneumoniae DNA (PCR) (NotDetected) Coronavirus OC43 (PCR) (NotDetected) Coronavirus HKU1 (PCR) (NotDetected) Coronavirus 229E (PCR) (NotDetected) SARS-CoV-2 (PCR) (NotDetected) Coronavirus NL63 (PCR) (NotDetected) Human Metapneumovir PCR (NotDetected) Influenza Type A (PCR) (NotDetected) Influenza Type B (PCR) (NotDetected) M. pneumoniae (PCR) (NotDetected) Parainfluenza 1 (PCR) (NotDetected) Parainfluenza 2 (PCR) (NotDetected) Parainfluenza 3 (PCR) (NotDetected) Parainfluenza 4 (PCR) (NotDetected) RSV (PCR) (NotDetected) Entero/Rhino (PCR) (NotDetected) Blood Type Antibody Screen 10/15/23 Range/Units 05:45 WBC 12.63 H (4.8-10.8) K/ul RBC 4.39 (4.20-5.40) M/uL Hgb 9.3 L (12.0-16.0) g/dl Hct 29.1 L (37.0-47.0) % MCV 66.3 L (80.0-100.0) fL MCH 21.2 L (25.0-34.0) pg MCHC 32.0 (32.0-36.0) g/dL RDW Std Deviation 34.5 L (36.4-46.3) fL RDW Coeff of Mikayla 14.6 H (11.5-14.5) % Plt Count 174 (130-400) K/uL MPV 10.9 (9.4-12.4) fL Immature Gran % (Auto) % Neut % (Auto) % Lymph % (Auto) % [place] % (Auto) % Eos % (Auto) % Baso % (Auto) % Neut # (Auto) (1.40-6.50) K/uL Lymph # (Auto) (1.20-3.40) K/uL [place] # (Auto) (0.11-0.59) K/uL Eos # (Auto) (0.00-0.50) K/uL Baso # (Auto) (0.00-0.20) K/uL Immature Gran # (Auto) (0.01-0.20) K/uL Absolute Nucleated RBC (0.00-0.12) K/uL Nucleated RBC % (auto) % Polychromasia Hypochromasia Poikilocytosis Microcytosis Target Cells Tear Drop Cells Ovalocytes PT (9.0-12.0) Seconds INR (0.9-1.1) Sodium 139 Potassium 3.7 Chloride 106 (98-107) mmol/L Carbon Dioxide 27 (21-32) mmol/L Anion Gap 6 BUN 14 (6-23) mg/dl Creatinine 0.51 L (0.6-1.2) mg/dl Est Cr Clr Drug Dosing 83.8 ml/min Est GFR ( Amer) 99.5 ml/min Est GFR (Non-Af Amer) 85.9 ml/min BUN/Creatinine Ratio 27.5 H (10-20) Glucose 109 H (70-99(Fasting)) mg/dl Calcium 8.3 L (8.6-10.3) mg/dl Magnesium (1.7-2.4) mg/dl Total Bilirubin (0.2-1.0) mg/dl AST ALT (7-52) U/L Alkaline Phosphatase (34-104) U/L Total Creatine Kinase (26-192) U/L Troponin I High Sens (0-14) pg/ml B-Natriuretic Peptide (0-100) pg/ml Total Protein (6.0-8.3) gm/dl Albumin (3.4-5.0) gm/dl Globulin (2.5-4.0) gm/dl Albumin/Globulin Ratio (0.9-2) 25-OH Vitamin D Total (30-100) ng/ml Procalcitonin Urine Color Urine Appearance (Clear) Urine pH (4.5-7.5) Ur Specific [place] (1.000-1.030) Urine Protein (Negative) Urine Glucose (UA) (Negative) Urine Ketones (Negative) Urine Blood (Negative) Urine Nitrite (Negative) Urine Bilirubin (Negative) Urine Urobilinogen (Negative) Ur Leukocyte Esterase (Negative) Urine WBC (Auto) (0-5) /hpf Urine RBC (Auto) (0-4) /hpf U Hyaline Cast (Auto) (0-5) /lpf U Epithel Cells (Auto) (0-5) /lpf Urine Bacteria (Auto) (Negative) Nasal Screen MRSA (PCR) (Negative) Adenovirus (PCR) (NotDetected) B. pertussis DNA (PCR) (NotDetected) B.parapertussis DNA PCR (NotDetected) C. pneumoniae DNA (PCR) (NotDetected) Coronavirus OC43 (PCR) (NotDetected) Coronavirus HKU1 (PCR) (NotDetected) Coronavirus 229E (PCR) (NotDetected) SARS-CoV-2 (PCR) (NotDetected) Coronavirus NL63 (PCR) (NotDetected) Human Metapneumovir PCR (NotDetected) Influenza Type A (PCR) (NotDetected) Influenza Type B (PCR) (NotDetected) M. pneumoniae (PCR) (NotDetected) Parainfluenza 1 (PCR) (NotDetected) Parainfluenza 2 (PCR) (NotDetected) Parainfluenza 3 (PCR) (NotDetected) Parainfluenza 4 (PCR) (NotDetected) RSV (PCR) (NotDetected) Entero/Rhino (PCR) (NotDetected) Blood Type Antibody Screen (1) Closed right hip fracture Encounter type: initial encounter Qualified Code(s): S72.001A - Fracture of unspecified part of neck of right femur, initial encounter for closed fracture
--- NOTE | 2023-10-15 09:20 | XRay Report ---
XR chest 1V portable HISTORY: continued O2 needs, ?fluid overload COMPARISON: Chest 10/10/2023. FINDINGS: No pneumothorax. The heart remains enlarged. There are trace bilateral pleural effusions. T here is mild central pulmonary vascular congestion without overt edema. This is similar to the prior study. Bibasilar densities also persist. This may represent atelectasis or pneumonia. IMPRESSION: 1. No significant change compared to the prior studies. 2. Cardiomegaly, mild congestive change, trace bilateral pleural effusions persist 3. Bibasilar densities again noted. This may represent atelectasis or pneumonia. ACT 112: Negative or not required by law. Electronically signed by: Markus Gongora M.D. 10/15/2023 9:19 AM
[2023-10-15] MEDS: APIXABAN 5 MG TABLET PO SCH ×2 (09:31→21:54)
[2023-10-15] MEDS: DOCUSATE SODIUM 100 MG CAP PO SCH ×2 (09:32→21:53)
[2023-10-15] MEDS: FLECAINIDE ACETATE 100 MG TABLET PO SCH ×2 (09:32→21:52)
[2023-10-15] MEDS: CHOLECALCIFEROL 1,000 UNITS 25 MCG TAB PO SCH (09:32)
[2023-10-15] MEDS: PANTOprazole 40 MG TAB PO SCH ×2 (09:33→21:52)
[2023-10-15] MEDS: MULTIVITAMIN TAB PO SCH (09:34)
[2023-10-15] MEDS: SERTRALINE HCL 50 MG TABLET PO SCH (09:34)
[2023-10-15] MEDS: METOPROLOL SUCC 50MG EXT REL TAB PO SCH (09:34)
[2023-10-15] MEDS: clonazePAM 0.5 MG TAB PO SCH ×2 (09:38→22:03)
[2023-10-15] MEDS ORDERED: FUROSEMIDE 40 MG/4 ML VIAL IV ONE (09:41)
[2023-10-15] MEDS: POLYETHYLENE (MIRALAX) 17 GM PACK PO SCH (09:49)
[2023-10-15] MEDS: ACETAMINOPHEN 325 MG TAB PO PRN (10:42)
[2023-10-15] MEDS: dilTIAZem HCL 30 MG TAB PO SCH ×3 (11:17→21:51)
--- NOTE | 2023-10-15 11:57 | Hospitalist Progress Note ---
Date of Service October 15, 2023 Assessment & Plan (1) Fall: Plan: -Patient sustained a mechanical fall in the late morning on 10/08 while attempting to sit on a chair in her living room, was likely on ground for 24 hours before being found by her daughter -Only signs of trauma at this time are her right hip fracture and bruising over the dorsum of the left foot -Xray: Nondisplaced fracture at the base of fifth proximal phalanx LEFT foot (2) Closed right hip fracture: Plan: Age-related osteoporotic fracture of the right hip -Noted on xray of the right hip/pelvis 10/09 - Right hip hemiarthroplasty with Dr. Christian 10/13 -Pain control: prn Tylenol and morphine -Resume Eliquis BID -PT/OT -10/11: Vit D level: 15.7, 2000 units daily ordered -PRN tylenol and morphine for pain -Will need rehab placement (3) Hypoxia: Plan: -Patient was reportedly hypoxic for EMS on arrival. No baseline oxygen needs -10/09: CT of the thoracic spine mentions mild pulmonary edema and small BL pleural effusions, lung exam is essentially clear -Patient also mentions that she is often started on O2 while admitted and sleeping, likely has some component of EDGAR and/or obesity hypoventilation syndrome -10/10: CXR without signs of pneumonia, CTA without PE -10/15 CXR: Trace bilateral pleural effusion, bibasilar densitiesatelectasis vs pneumonia? - IV lasix 40mg ordered -Will keep Reardon in place while giving IV Lasix -Incentive spirometry, flutter therapy, prn O2 to keep SpO2 at or above 94% (4) Paroxysmal atrial fibrillation: Plan: -Flipped to Afib evening of 10/11, rates 100-160s -Discussed case with Dr. Bland, cardiology - increase flecainide to 150mg BID and continue IV Lopressor as BP allows -Continue metoprolol 100mg QD -Continue Eliquis -Will add Cardizem q6 for rate control (5) Anxiety: Plan: -Continue Zoloft, Klonopin and prn ativan -Family reporting worsening anxiety, requesting psych consult (6) Leukocytosis: Plan: -Patient with WBC of 22 with neutrophil predominance of 19 on admission -Febrile overnight 10/09 --> Unasyn and doxycycline - 10/09 PM to 10/14 for 6 days of treatment -Will obtain blood cultures on admission, unfortunately she was given Zosyn and no blood cultures were obtain in the ED -->No growth after 5 days - Improved after antibiotic, slight increase on 10/14 after surgery but patient received dexamethasone. Will continue to monitor (7) Troponin level elevated: Plan: Demand ischemia -Initial high sen trop elevated at 157 ---> 209 on 2 hour repeat, continues to downtrend, most recent 117.2 -Initial CK level elevated at 1284 --> 743 -Patient denies chest pain -ECG shows possible RBBB with ST depression in the anterior leads -Likely due to demand from falling and being on the ground for approximately 24 hours -10/10 Echo: mild LVH, EF 60-65% (8) (HFpEF) heart failure with preserved ejection fraction: Plan: Acute on chronic HFpEF -Patient appeared dehydrated on admission despite mild pulmonary edema and small BL pleural effusions on thoracic spine CT - Given 40mg lasix IV in the ED -No significant fluid on auscultation of lungs on admission -BNP: 802 -Daily weight +3kg since surgery, lasix as above (9) Hypertension: Plan: -Stable, hypotensive at times -Will continue home metoprolol, mainly for afib -Home amlodipine and lisinopril initially held in the setting of dehydration and rhabdomyolysis - will continue to hold as pressures have been stable/low without (10) Rhabdomyolysis: Plan: -Initial CK elevated at 1284 --> 743 -Improved - renal function and LFTs WNLs Plan Dispo: Continued inpatient stay VTE prophy: Eliquis Admission and Anticipated Discharge Date Admission Date: October 09, 2023 Supervising Physician Co-Signing Physician Notes Attending Attestation - Chart reviewed, care plan d/w GIACOMO Alfaro. I agree w/ the palmer components of her documentation. Caio Smith MD Subjective Patient seen sitting up in bed. Reports that her pain has been well-controlled. She did have a bowel movement this morning. Remains in A-fib, rates up to 160s overnight despite increase in flecainide. IV Lopressor. She denies any palpitations. But did state that she did not sleep well. Reports that therapy did not go well yesterday but would like to continue to work at it. Call to Daughter, Liz - she expressed concern with mother's mental state. States Lizette is very anxious at baseline and is now very worried about returning home and that she will not be able to walk again. Reports repetive flash backs of being down for 24 hours and having weird dreams at night. Would like a psych consult. Patient does follow with psychiatry outpatient. Tele -A-fib 130-160s Review of Systems Review of Systems: All systems reviewed & are unremarkable except as noted in Subjective Physical Exam Physical Exam: General: WN/WD, NAD, VS as above Resp: normal respiratory effort, no accessory muscle use, able to speak in full sentences, CTA CV: irregular and rapid, no murmur, no edema Abd: normal bowel sounds, non tender, no hepatosplenomegaly Extremities:distal pulses intact bilaterally. Ice pack over R hip, dressing c/d/i Neuro: A&O x3, Skin: intact, no lesions noted Results & Data Results & Data Vital Signs (Past 12 Hours) Vital Signs Temp Pulse Pulse Resp BP Pulse Ox O2 Del Method 10/15/23 09:09 37.3 C 122 H 18 125/58 L 92 Nasal Cannula 10/15/23 07:15 131 H 10/15/23 03:25 37.0 C 112 H 18 109/69 93 Nasal Cannula 10/15/23 00:08 Nasal Cannula 10/14/23 23:56 36.6 C 115 H 18 106/54 L 94 Nasal Cannula O2 Flow Rate 10/15/23 09:09 5 10/15/23 07:15 10/15/23 03:25 4 10/15/23 00:08 4 10/14/23 23:56 4 Laboratory Results CBC and CMP reviewed Diagnostic Findings Chest X-Ray 10/15/23 08:09 XR chest 1V portable HISTORY: continued O2 needs, ?fluid overload COMPARISON: Chest 10/10/2023. FINDINGS: No pneumothorax. The heart remains enlarged. There are trace bilateral pleural effusions. There is mild central pulmonary vascular congestion without overt edema. This is similar to the prior study. Bibasilar densities also persist. This may represent atelectasis or pneumonia. IMPRESSION: 1. No significant change compared to the prior studies. 2. Cardiomegaly, mild congestive change, trace bilateral pleural effusions persist 3. Bibasilar densities again noted. This may represent atelectasis or pneumonia. ACT 112: Negative or not required by law. Electronically signed by: Markus Gongora M.D. 10/15/2023 9:19 AM PG Care Time/CCT Total # of Minutes Spent Total Time Spent with Patient: Total time spent is greater than 50% in coordination of care (as documented) at patient's floor/unit and/or counseling patient: Coding Level of Care Code 47265 SUB INP/OBS CARE 3/50MIN Diagnoses Fall W19.XXXA Closed right hip fracture S72.001A Encounter type: initial encounter Hypoxia R09.02 Paroxysmal atrial fibrillation I48.0 Anxiety F41.9 Leukocytosis D72.829 Leukocytosis type: unspecified Troponin level elevated R79.89 (HFpEF) heart failure with preserved ejection fraction I50.30 Hypertension I10 Rhabdomyolysis M62.82 Encounter type: initial encounter (2) Closed right hip fracture Encounter type: initial encounter Qualified Code(s): S72.001A - Fracture of unspecified part of neck of right femur, initial encounter for closed fracture (6) Leukocytosis Leukocytosis type: unspecified Qualified Code(s): D72.829 - Elevated white blood cell count, unspecified (10) Rhabdomyolysis Encounter type: initial encounter
[2023-10-15] MEDS: ACETAMINOPHEN 500 MG TAB PO PRN ×2 (16:54→22:03)
[2023-10-15] MEDS: SENNA 8.6 MG TAB PO SCH (21:51)
[2023-10-15] MEDS: LORazepam 0.5 MG TAB PO PRN (22:02)
[2023-10-16] MEDS: dilTIAZem HCL 30 MG TAB PO SCH ×4 (03:20→21:41)
[2023-10-16 07:13] LABS: Basophils # (auto) 0.05 K/uL (0.00-0.20); Basophils % (auto) 0.5 %; Eosinophils # (auto) 0.19 K/uL (0.00-0.50); Eosinophils % (auto) 1.8 %; Hematocrit (blood only) 29.1 % (37.0-47.0); Immature Granulocytes # (auto) 0.06 K/uL (0.01-0.20); Immature Granulocytes % (auto) 0.6 %; Lymphocytes # (auto) 2.09 K/uL (1.20-3.40); Mean Corpuscular Hemoglobin 20.8 pg (25.0-34.0); Mean Corpuscular Hgb Conc 30.9 g/dL (32.0-36.0); Mean Corpuscular Volume 67.4 fL (80.0-100.0); Monocytes # (auto) 1.17 K/uL (0.11-0.59); Monocytes % (auto) 11.2 %; Neutrophils # (auto) 6.87 K/uL (1.40-6.50); Neutrophils % (auto) 65.9 %; RDW Coefficient of Variation 14.3 % (11.5-14.5); RDW Standard Deviation 34.1 fL (36.4-46.3); Red Blood Count 4.32 M/uL (4.20-5.40); White Blood Count 10.43 K/ul (4.8-10.8)
[2023-10-16 07:40] LABS: BUN Creatinine Ratio 26.7 (10-20); Calcium 8.4 mg/dl (8.6-10.3); Creatinine Clr Calc Pharmacy 93.6 ml/min; Est GFR (African American) 103.7 ml/min; Est GFR (Non-African American) 89.5 ml/min; Potassium 3.5 mmol/L (3.5-5.1)
[2023-10-16 07:45] LABS: Mean Platelet Volume 11.1 fL (9.4-12.4); Microcytosis Present; Ovalocytes 1+; Platelet Count 175 K/uL (130-400); Polychromasia 1+; Tear Drop Cells 1+
[2023-10-16] MEDS: CHOLECALCIFEROL 1,000 UNITS 25 MCG TAB PO SCH (08:32)
[2023-10-16] MEDS: PANTOprazole 40 MG TAB PO SCH ×2 (08:32→21:41)
[2023-10-16] MEDS: METOPROLOL SUCC 50MG EXT REL TAB PO SCH (08:32)
[2023-10-16] MEDS: SERTRALINE HCL 50 MG TABLET PO SCH (08:32)
[2023-10-16] MEDS: FLECAINIDE ACETATE 100 MG TABLET PO SCH ×2 (08:33→21:42)
[2023-10-16] MEDS: DOCUSATE SODIUM 100 MG CAP PO SCH ×2 (08:33→21:43)
[2023-10-16] MEDS: APIXABAN 5 MG TABLET PO SCH ×2 (08:33→21:41)
[2023-10-16] MEDS: POLYETHYLENE (MIRALAX) 17 GM PACK PO SCH (08:33)
[2023-10-16] MEDS: MULTIVITAMIN TAB PO SCH (08:34)
[2023-10-16] MEDS: MoRPHine SULFATE 2 MG/ML CARP IV PRN (08:40)
[2023-10-16] MEDS: clonazePAM 0.5 MG TAB PO SCH ×2 (08:40→21:45)
[2023-10-16] MEDS: ONDANSETRON INJ 2 MG/ML 2 ML VIAL IV PRN (08:41)
[2023-10-16] MEDS ORDERED: FUROSEMIDE INJ 20 MG/2 ML VIAL IV ONE ×2 (09:55→17:00)
--- NOTE | 2023-10-16 09:59 | Hospitalist Progress Note ---
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 Christian 10/13 -Pain control: prn Tylenol and morphine -Continue Eliquis BID -hgb stable, will check Fe studies for microcytic anemia -PT/OT -10/11: Vit D level: 15.7, 2000 units daily ordered -PRN tylenol and morphine for pain -Will need rehab placement (3) Paroxysmal atrial fibrillation: Plan: -Flipped to Afib evening of 10/11, rates 100-160s -10/[address] Bland, cardiology - increase flecainide to 150mg BID and continue IV Lopressor as BP allows -Continue metoprolol 100mg QD -Continue Eliquis -10/15 added PO Cardizem - Rate remain elevated, cardiology consulted, appreciate recs -Plan for cardioversion 10/17 -Continue diuresis, will add second dose of lasix tonight -Consider transition to amiodarone in the outpatient setting (4) Hypoxia: Plan: -Patient was reportedly hypoxic for EMS on arrival. No baseline oxygen needs -10/09: CT of the thoracic spine mentions mild pulmonary edema and small BL pleural effusions, lung exam is essentially clear -Patient also mentions that she is often started on O2 while admitted and sleeping, likely has some component of EDGAR and/or obesity hypoventilation syndrome -10/10: CXR without signs of pneumonia, CTA without PE -10/15 CXR: Trace bilateral pleural effusion, bibasilar densitiesatelectasis vs pneumonia? -Will start IV lasix - keep English in place while giving IV Lasix -Incentive spirometry, flutter therapy, prn O2 to keep SpO2 at or above 94% (5) Anxiety: Plan: -Continue Zoloft, Klonopin and prn ativan -Family reporting worsening anxiety, requesting psych consult (6) (HFpEF) heart failure with preserved ejection fraction: Plan: Acute on chronic HFpEF -Patient appeared dehydrated on admission despite mild pulmonary edema and small BL pleural effusions on thoracic spine CT - Given 40mg lasix IV in the ED -No significant fluid on auscultation of lungs on admission -BNP: 802 -Daily weight - patient reports that she weighs herself daily at home and ~179# +3kg since surgery, lasix as above (7) Leukocytosis: Plan: -Patient with WBC of 22 with neutrophil predominance of 19 on admission -Febrile overnight 10/09 --> Unasyn and doxycycline - 12/3 PM to 10/14 for 6 days of treatment -Will obtain blood cultures on admission, unfortunately she was given Zosyn and no blood cultures were obtain in the ED -->No growth after 5 days - Improved after antibiotic, slight increase on 10/14 after surgery but patient received dexamethasone. Now WNL (8) Hypertension: Plan: -Stable, hypotensive at times -Will continue home metoprolol, mainly for afib -Home amlodipine and lisinopril initially held in the setting of dehydration and rhabdomyolysis - will continue to hold as pressures have been stable/low without (9) Rhabdomyolysis: Plan: Mild present on admission, resolved. Plan Dispo: Continued inpatient stay VTE prophy: Eliquis Admission and Anticipated Discharge Date Admission Date: October 09, 2023 Supervising Physician Co-Signing Physician Notes Attending Attestation - Chart reviewed, care plan d/w GIACOMO Alfaro. I agree w/ the palmer components of her documentation. Cardiology consulted for rapid a.fib as the a.fib has been unresponsive to AV lauryn agents as well as increased dose of flecainide. Plan - cardioversion tomorrow. Caio Smith MD Subjective Sitting up in bed, states she slept better last night after taking Ativan. Does not fell chest pain/pressure/palpitations with afib. good appeitite. pain of right hip being well controlled. Patient very anxious about being able to walk again and having her english discontinued. Denies feeling short of breath. Tele - afib 130s Review of Systems Review of Systems: All systems reviewed & are unremarkable except as noted in Subjective Physical Exam Physical Exam: General: WN/WD, NAD, VS as above Resp: normal respiratory effort, no accessory muscle use, able to speak in full sentences, CTA CV: irregular and rapid, no murmur, Abd: normal bowel sounds, non tender, no hepatosplenomegaly Extremities:distal pulses intact bilaterally. Ice pack over R hip, dressing c/d/i. Mild edema bilateral legs Neuro: A&O x3, Skin: intact, no lesions noted Results & Data Results & Data Vital Signs (Past 12 Hours) Vital Signs Temp Pulse Pulse Resp BP Pulse Ox O2 Del Method 10/16/23 08:41 36.7 C 135 H 18 115/72 92 Nasal Cannula 10/16/23 07:29 99 H 10/16/23 03:22 36.8 C 122 H 18 106/68 92 Nasal Cannula 10/16/23 02:37 Nasal Cannula 10/16/23 00:00 36.9 C 117 H 18 105/61 92 Nasal Cannula 10/15/23 22:00 150 H O2 Flow Rate 10/16/23 08:41 4 10/16/23 07:29 10/16/23 03:22 4 10/16/23 02:37 4 10/16/23 00:00 4 10/15/23 22:00 Laboratory Results Cbc and chemistry reviewed PG Care Time/CCT Total # of Minutes Spent Total Time Spent with Patient: Total time spent is greater than 50% in coordination of care (as documented) at patient's floor/unit and/or counseling patient: Coding Level of Care Code 25253 SUB INP/OBS CARE 3/50MIN Diagnoses Fall W19.XXXA Closed right hip fracture S72.001A Encounter type: initial encounter Paroxysmal atrial fibrillation I48.0 Hypoxia R09.02 Anxiety F41.9 (HFpEF) heart failure with preserved ejection fraction I50.30 Leukocytosis D72.829 Leukocytosis type: unspecified Hypertension I10 Rhabdomyolysis M62.82 Encounter type: initial encounter (2) Closed right hip fracture Encounter type: initial encounter Qualified Code(s): S72.001A - Fracture of unspecified part of neck of right femur, initial encounter for closed fracture (7) Leukocytosis Leukocytosis type: unspecified Qualified Code(s): D72.829 - Elevated white blood cell count, unspecified (9) Rhabdomyolysis Encounter type: initial encounter
--- NOTE | 2023-10-16 10:14 | Cardiology Consultation ---
Date of Consultation October 16, 2023 Assessment & Plan (1) Paroxysmal atrial fibrillation: Plan 1. Atrial fibrillation: She has persistent atrial fibrillation. No associated symptoms. Some elevated ventricular rates. This seems to be consistent with prior episodes of atrial fibrillation which resulted in spontaneous conversion back to sinus rhythm. In general she seems to have done well on flecainide over a few years. Her last documented episode of atrial fibrillation was in May of 2022. She is not very satisfied with the therapy simply because the pill itself dissolved on her tongue and taste poorly. She inquired about an alternative therapy. Despite a good dose of metoprolol and diltiazem she continues to have elevated ventricular rates. Despite an increased dose of flecainide she continues to have atrial fibrillation. Although are many options, I think given her success with antiarrhythmic previously we should move towards cardioversion. This would also likely facilitate a more rapid discharge to rehab. Unfortunately, her anticoagulation was interrupted for few days while she was in atrial fibrillation. I think in order to perform a cardioversion safely a transesophageal echocardiogram will need to per performed immediately prior to cardioversion. This can likely be arranged tomorrow or the following day. She should continue her current dose of apixaban. With respect to flecainide, I think we will continue this in the short term. The option for an transition to amiodarone can be discussed in the outpatient setting. 2. Dyspnea: At times. She was notably hypoxic at the time of admission. She has rales on examination today. She was administered a dose of diuretic earlier today and I would consider an additional dose this evening. I think we could attempt more aggressive diuresis leading up to her cardioversion. We can mo nitor her electrolytes and renal function closely. She may benefit from a daily dose of Lasix at the time of discharge depending on her clinical condition and renal status. History of Present Illness Reason for Consultation: Atrial fibrillation Requesting Physician: Angelina Attending Physician: Caio Smith MD History of Present Illness The patient is an 88-year-old woman with a history of paroxysmal atrial fibrillation was admitted to the hospital after suffering a mechanical fall at home. Patient states that she was attempting to sit down on a seizure chest when she missed and fell hard on the floor. She was unable to get up was found by her daughter the following morning. She was brought to the hospital for evaluation and did suffer a left hip fracture. At the time admission the patient was in sinus rhythm but on 10/11/2023 she reverted to atrial fibrillation with rapid ventricular response. She underwent operative repair of her hip on 10/13/2023. She just now regaining some mobility. She has been unaware of any palpitations or rapid heartbeats. She did not report any symptoms of this nature at home leading up to her admission. No symptoms of dizziness or lightheadedness. She does have an element of dyspnea at times. She seems to have an element of orthopnea and when pushing a grocery cart to her residence can get somewhat short of breath. With routine activity she does not report dyspnea. No associated chest pain. Generally she can walk with a cane. She has some unsteadiness at times. She has not suffered any additional falls recently. Again, no dizziness or lightheadedness. Allergies Allergy/AdvReac Type Severity Reaction Status Date / Time metronidazole Allergy Intermediate HIVES Verified 10/09/23 16:33 naproxen Allergy Intermediate HIVES Verified 10/09/23 16:33 perflutren [From [employer]] AdvReac Back Pain Verified 10/10/23 07:53 Home Medications Medication Instructions Recorded Confirmed Type flecainide 100 mg tablet 100 mg PO Q12H #180 tabs 07/28/19 10/09/23 History furosemide 40 mg tablet 40 mg PO DAILY 07/28/19 10/09/23 History lorazepam 0.5 mg tablet 0.5 mg PO PM PRN Insomnia 07/28/19 10/09/23 History potassium chloride 20 mEq 20 meq PO DAILY 07/28/19 10/09/23 History tablet,extended release multivitamin 1 tab PO QAM 08/27/19 10/09/23 History amlodipine 5 mg tablet (Norvasc) 5 mg PO BID #60 tabs 08/29/19 10/09/23 Rx clonazepam 0.25 mg disintegrating 0.25 mg PO BID #60 tabs 08/29/19 10/09/23 Rx tablet metoprolol succinate 100 mg 100 mg PO DAILY 06/16/21 10/09/23 History tablet,extended release 24 hr (Toprol XL) apixaban 5 mg tablet (Eliquis) 5 mg PO BID #180 tabs 07/21/21 10/09/23 Rx lisinopril 20 mg tablet 20 mg PO BID 04/23/23 10/09/23 History pantoprazole 20 mg tablet,delayed 20 mg PO BID 04/23/23 10/09/23 History release sertraline 50 mg tablet 50 mg PO DAILY 04/23/23 10/09/23 History acetaminophen 500 mg tablet 500 mg PO DIRECTED PRN 10/09/23 10/09/23 History (Tylenol Extra Strength) ARTHRITIS PAIN carboxymethylcellulose 0.5 1 drp ophthalmic (eye) DIRECTED 10/09/23 10/09/23 History %-glycerin 0.9 % eye drops PRN Dry Eyes (Refresh Optive) loperamide 2 mg tablet 2 mg PO DIRECTED PRN Diarrhea 10/09/23 10/09/23 History simethicone 125 mg chewable tablet 125 mg PO DIRECTED PRN GAS 10/09/23 10/09/23 History (Gas-X Extra Strength) RELIEF Patient History Medical History (Updated 10/17/23 @ 13:52 by Linette Alfaro PA-C) Major depressive disorder, recurrent, mild JOSTIN (generalized anxiety disorder) Acute stress disorder Troponin level elevated Rhabdomyolysis Hypoxia Encounter for pre-operative examination Hypertension Anticoagulant long-term use Chest pain Paroxysmal atrial fibrillation CHF (congestive heart failure) Chest pain Surgical History History of 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 History of dilatation and curettage x 2 History of hysterectomy with BSO Family History Father , age 60 Colorectal cancer Mother , age 98 Dementia Hypertension Stroke Sister , age 60s Mesothelioma Denies family history of Coronary heart disease AAA (abdominal aortic aneurysm) Social History Smoking Status: Never smoker Second Hand Exposure: No; Do You Dip or Chew Tobacco: No; Hx Alcohol Use: Yes Alcohol type: wine Hx Substance Use: No Preferred Language: Portuguese Communication Ability: Effective Car Installations Supervisor Required: No Beliefs That Will Affect Care: Quaker marital status: Unknown Current Living Situation: Alone and M[facility] Current Living Situation Comment: independent living at [facility] current occupational status: 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 Mood affect appear normal. She answered all questions appropriately. HEENT: Sclerae are anicteric. Pupils are equal and reactive to light and accommodation. Extraocular movements were intact. Neuro: Cranial nerves intact Lungs: She has bibasilar rales. Normal respiratory effort. No expiratory wheezing. Cardiac: The rhythm was irregular. S1 and S2 were normal. There are no murmurs on examination. The PMI was not markedly displaced on palpation. Extremities: Patient has bilateral radial pulses that are equal in intensity. There is no evidence cyanosis or clubbing. Skin: There are no rashes noted on examination today. Multiple ecchymoses Results & Data Vital Signs (Past 12 Hours) Vital Signs Temp Pulse Pulse Resp BP Pulse Ox O2 Del Method 10/16/23 08:41 36.7 C 135 H 18 115/72 92 Nasal Cannula 10/16/23 07:29 99 H 10/16/23 03:22 36.8 C 122 H 18 106/68 92 Nasal Cannula 10/16/23 02:37 Nasal Cannula 10/16/23 00:00 36.9 C 117 H 18 105/61 92 Nasal Cannula O2 Flow Rate 10/16/23 08:41 4 10/16/23 07:29 10/16/23 03:22 4 10/16/23 02:37 4 10/16/23 00:00 4 Laboratory Results Abnormal Lab Results 10/16/23 05:43 WBC 10.43 RBC 4.32 Hgb 9.0 L Hct 29.1 L MCV 67.4 L MCH 20.8 L MCHC 30.9 L RDW Std Deviation 34.1 L RDW Coeff of Mikayla 14.3 Plt Count 175 MPV 11.1 Immature Gran % (Auto) 0.6 Neut % (Auto) 65.9 Lymph % (Auto) 20.0 Alcorn % (Auto) 11.2 Eos % (Auto) 1.8 Baso % (Auto) 0.5 Neut # (Auto) 6.87 H Lymph # (Auto) 2.09 Alcorn # (Auto) 1.17 H Eos # (Auto) 0.19 Baso # (Auto) 0.05 Immature Gran # (Auto) 0.06 Polychromasia 1+ Microcytosis Present Tear Drop Cells 1+ Ovalocytes 1+ Sodium 139 Potassium 3.5 Chloride 104 Carbon Dioxide 30 Anion Gap 5 BUN 12 Creatinine 0.45 L Est Cr Clr Drug Dosing 93.6 Est GFR ( Amer) 103.7 Est GFR (Non-Af Amer) 89.5 BUN/Creatinine Ratio 26.7 H Glucose 101 H Calcium 8.4 L Diagnostic Findings Echocardiogram performed 10/10/2023: Normal LV systolic function with ejection fraction 60-65%. Mild LVH. No significant valvular heart disease. Performed the time admission not reveal any evidence of pulmonary embolus. Trace bilateral pleural effusions. ECG Additional Comments: Right bundle branch block, first-degree AV block. PG Care Time/CCT Total # of Minutes Spent Total Time Spent with Patient: Total time spent is greater than 50% in coordination of care (as documented) at patient's floor/unit and/or counseling patient: Coding Level of Care Code 96496 INT INP/OBS CARE 3/75MIN Diagnoses Paroxysmal atrial fibrillation I48.0
[2023-10-16] MEDS: ACETAMINOPHEN 500 MG TAB PO PRN (13:33)
--- NOTE | 2023-10-16 18:37 | Psychiatric Consultation ---
Date of Consultation October 16, 2023 Impression / Recommendations Impression 88 y/o woman who fairly evidently had an episode of hallucinosis after having been stuck on the floor for an extended period without access to fluids. While I can elicit no evidence of hallucinosis since then, she has had distressing, intrusive memories of this weird experience with which she's become preoccupied. Given the brief interval since the incident and lack of other typical PTSD symptoms, I think it would be fair to characterize this as Acute Stress Disorder. This usually resolves without sequelae but some patients go on to develop PTSD. In my experience treating many people following delirium, hallucinated experiences during delirium can be abnormally vivid and memorable and people often remain worried about them even if the content wasn't threatening. Pt is already on 2 medications that could help with such symptoms, venlafaxine XR and clonazepam. The venlafaxine dose is likely too low to be particularly effective. At home she was taking oral-dissolving clonazepam on a BID schedule, which is hard for me to figure out. Clonazepam taken Q12 hours should reach steady state after a few days and thereafter blood levels shouldn't dip before or rise after doses very much. The primary rationale for the ODT is faster absorption and distribution of medication that makes a poor PRN when taken by mouth due to delayed onset of action. Rapidly-peaking benzodiazepine levels increase risk of falls. Overall I spent a total of 81 minutes on the floor for this consultation assessment including review of chart records, review of test results, direct evaluation of the patient [id number], counseling the patient, medication education with the patient, risk assessment, discussion with the psychiatric liaison nurse, and documentation in the electronic health record. (1) Acute stress disorder: (2) JOSTIN (generalized anxiety disorder): (3) Major depressive disorder, recurrent, mild: Plan Increase sertraline to 75 mg x 2 days then 100 mg daily change clonazepam to 0.25 mg Q8Hr (using regular tablets) Psych History Identifying Data HENRY BOOKER is a 88-year-old F with a history of depression and anxiety, admitted on 10/09/2023 for hip fracture and rhabdomyolysis. Consult is by the hospitalist service for "increasing anxiety, frequent flashbacks". Chief Complaint "I'm doing better now". 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 Despite her attempts to reach a phone or emergency button, she was only able to drag herself a small way into a hallway where she then lay on her back for about a full day. When her daughter came to check on her and was pounding on the door (she didn't have a palmer) pt noted seeing her daughter's face as if projected on the ceiling above her. Subsequently, she has had intrusive memories of this, which she experiences as weird and foreboding because she recognizes it couldn't have been real. She says her anxiety about this has slowly been diminishing. She denies current depression symptoms and reports "normal sort of worries" about show progression since hip surgery and eagerness to get to prison so she "can do PT and get back home". Pt reports no other intrusive memories but acknowledges she's "spent a lot of time chewing that one over". Denies hypervigilance, avoidance behaviors (though that would be difficult to assess here). Allergies Allergy/AdvReac Type Severity Reaction Status Date / Time metronidazole Allergy Intermediate HIVES Verified 10/09/23 16:33 naproxen Allergy Intermediate HIVES Verified 10/09/23 16:33 perflutren [From Kredits] AdvReac Back Pain Verified 10/10/23 07:53 Home Medications Medication Instructions Recorded Confirmed Type flecainide 100 mg tablet 100 mg PO Q12H #180 tabs 07/28/19 10/09/23 History furosemide 40 mg tablet 40 mg PO DAILY 07/28/19 10/09/23 History lorazepam 0.5 mg tablet 0.5 mg PO PM PRN Insomnia 07/28/19 10/09/23 History potassium chloride 20 mEq 20 meq PO DAILY 07/28/19 10/09/23 History tablet,extended release multivitamin 1 tab PO QAM 08/27/19 10/09/23 History amlodipine 5 mg tablet (Norvasc) 5 mg PO BID #60 tabs 08/29/19 10/09/23 Rx clonazepam 0.25 mg disintegrating 0.25 mg PO BID #60 tabs 08/29/19 10/09/23 Rx tablet metoprolol succinate 100 mg 100 mg PO DAILY 06/16/21 10/09/23 History tablet,extended release 24 hr (Toprol XL) apixaban 5 mg tablet (Eliquis) 5 mg PO BID #180 tabs 07/21/21 10/09/23 Rx lisinopril 20 mg tablet 20 mg PO BID 04/23/23 10/09/23 History pantoprazole 20 mg tablet,delayed 20 mg PO BID 04/23/23 10/09/23 History release sertraline 50 mg tablet 50 mg PO DAILY 04/23/23 10/09/23 History acetaminophen 500 mg tablet 500 mg PO DIRECTED PRN 10/09/23 10/09/23 History (Tylenol Extra Strength) ARTHRITIS PAIN carboxymethylcellulose 0.5 1 drp ophthalmic (eye) DIRECTED 10/09/23 10/09/23 History %-glycerin 0.9 % eye drops PRN Dry Eyes (Refresh Optive) loperamide 2 mg tablet 2 mg PO DIRECTED PRN Diarrhea 10/09/23 10/09/23 History simethicone 125 mg chewable tablet 125 mg PO DIRECTED PRN GAS 10/09/23 10/09/23 History (Gas-X Extra Strength) RELIEF Patient History Medical History (Updated 10/16/23 @ 21:03 by Roderick Bañuelos MD) Major depressive disorder, recurrent, mild JOSTIN (generalized anxiety disorder) Acute stress disorder Troponin level elevated Rhabdomyolysis Hypoxia Encounter for pre-operative examination Hypertension Anticoagulant long-term use Chest pain Paroxysmal atrial fibrillation CHF (congestive heart failure) Chest pain Surgical History History of 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 History of dilatation and curettage x 2 History of hysterectomy with BSO Family History Father , age 60 Colorectal cancer Mother , age 98 Dementia Hypertension Stroke Sister , age 60s Mesothelioma Denies family history of Coronary heart disease AAA (abdominal aortic aneurysm) Social History Smoking Status: Never smoker Second Hand Exposure: No; Do You Dip or Chew Tobacco: No; Hx Alcohol Use: Yes Alcohol type: wine Hx Substance Use: No Preferred Language: Mongolian Communication Ability: Effective International Bank Manager Required: No Beliefs That Will Affect Care: None marital status: Unknown Current Living Situation: Alone and Half-Way Current Living Situation Comment: independent living at [facility] current occupational status: 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 Feels Safe at Home: Yes Assistive Devices: Cane, Glasses and Raised Toilet Seat Physical Exam Psychiatric: Orientation: alert, oriented to person, oriented to place, oriented to time and cooperative Apperance: appropriately dressed and appropriately groomed Eye Contact: good eye contact Motor Behavior: no abnormal motor movements Speech: normal rate/rhythm/volume of speech Affect: mood congruent with affect Mood: + anxious mood Thought Process: linear/logical thought process Thought Content: + preoccupation (with intrusive memory of hallucination while delirious) and reality based without delusions Suicidal Thoughts: denies suicidal thoughts, denies suicidal plan and denies suicidal intent Homicidal Thoughts: denies homicidal thoughts Hallucinations: no auditory hallucinations and no visual hallucinations Cognition: recent memory grossly intact, remote memory grossly intact, attention grossly intact and language grossly intact Estimated Intelligence: consistent with education level Insight: + fair insight Judgment: + fair judgement Vital Signs (Past 24 Hours): Last Vital Signs Temp 36.7 C 10/16/23 08:41 Pulse 123 H 10/16/23 14:46 Resp 18 10/16/23 08:41 BP 115/72 10/16/23 08:41 Pulse Ox 92 10/16/23 08:41 O2 Del Method Nasal Cannula 10/16/23 10:29 O2 Flow Rate 4 10/16/23 10:29 Review of Systems Psychiatric: + depression and + anxiety; no hopelessness, no suicidal ideation, no paranoia and no hallucinations Results & Data (PSY) Medications Administered Acetaminophen (Acetaminophen 500 Mg Tab) 500 mg PO Q4H PRN PRN Reason: Mild-Mod Pain (Scale 1-6) Stop: 11/10/23 11:51 Last Admin: 10/16/23 13:33 Dose: 500 mg Documented By: Admin: 10/15/23 22:03 Dose: 500 mg Documented By: DMStefani Admin: 10/15/23 16:54 Dose: 500 mg Documented By: TMP Apixaban (Apixaban 5 Mg Tablet) 5 mg PO BID [facility] Stop: 11/13/23 11:59 Last Admin: 10/16/23 08:33 Dose: 5 mg Documented By: Admin: 10/15/23 21:54 Dose: 5 mg Documented By: Admin: 10/15/23 09:31 Dose: 5 mg Documented By: Admin: 10/14/23 21:52 Dose: 5 mg Documented By: Admin: 10/14/23 17:54 Dose: 5 mg Documented By: KEHINDE Clonazepam (Clonazepam 0.5 Mg Tab) 0.25 mg PO BID [facility] Stop: 11/08/23 20:59 Last Admin: 10/16/23 08:40 Dose: 0.25 mg Documented By: Admin: 10/15/23 22:03 Dose: 0.25 mg Documented By: Admin: 10/15/23 09:38 Dose: 0.25 mg Documented By: Admin: 10/14/23 21:47 Dose: 0.25 mg Documented By: Admin: 10/14/23 08:59 Dose: 0.25 mg Documented By: Admin: 10/13/23 20:42 Dose: 0.25 mg Documented By: Admin: 10/13/23 08:44 Dose: Not Given Documented By: Admin: 10/12/23 20:37 Dose: 0.25 mg Documented By: Admin: 10/12/23 08:39 Dose: 0.25 mg Documented By: Admin: 10/11/23 20:05 Dose: 0.25 mg Documented By: Admin: 10/11/23 09:30 Dose: Not Given Documented By: Admin: 10/10/23 20:02 Dose: 0.25 mg Documented By: Admin: 10/10/23 10:30 Dose: 0.25 mg Documented By: Admin: 10/09/23 20:21 Dose: 0.25 mg Documented By: CARINA Diltiazem HCl (Diltiazem Hcl 30 Mg Tab) 30 mg PO Q6H [facility]IR[facility] Stop: 11/14/23 09:04 Last Admin: 10/16/23 15:07 Dose: 30 mg Documented By: Admin: 10/16/23 08:32 Dose: 30 mg Documented By: Admin: 10/16/23 03:20 Dose: 30 mg Documented By: Admin: 10/15/23 21:51 Dose: 30 mg Documented By: Admin: 10/15/23 15:31 Dose: 30 mg Documented By: Admin: 10/15/23 11:17 Dose: 30 mg Documented By: BALDEMAR Docusate Sodium (Docusate Sodium 100 Mg Cap) 100 mg PO BID [facility] Stop: 11/12/23 20:59 Last Admin: 10/16/23 08:33 Dose: Not Given Documented By: Admin: 10/15/23 21:53 Dose: 100 mg Documented By: Admin: 10/15/23 09:32 Dose: 100 mg Documented By: Admin: 10/14/23 21:48 Dose: 100 mg Documented By: Admin: 10/14/23 08:57 Dose: 100 mg Documented By: Admin: 10/13/23 20:42 Dose: 100 mg Documented By: ARIANE Flecainide Acetate (Flecainide Acetate 100 Mg Tablet) 150 mg PO Q12 [facility] Stop: 11/13/23 20:59 Last Admin: 10/16/23 08:33 Dose: 150 mg Documented By: Admin: 10/15/23 21:52 Dose: 150 mg Documented By: Admin: 10/15/23 09:32 Dose: 150 mg Documented By: Admin: 10/14/23 21:49 Dose: 150 mg Documented By: SEAN Lorazepam (Lorazepam 0.5 Mg Tab) 0.5 mg PO Q12 PRN PRN Reason: Anxiety/Insomnia Stop: 11/11/23 16:45 Last Admin: 10/15/23 22:02 Dose: 0.5 mg Documented By: SEAN Metoprolol Succinate (Metoprolol Succ 50mg Ext Rel Tab) 100 mg PO DAILY [facility] Stop: 11/09/23 08:59 Last Admin: 10/16/23 08:32 Dose: 100 mg Documented By: Admin: 10/15/23 09:34 Dose: 100 mg Documented By: Admin: 10/14/23 08:56 Dose: 100 mg Documented By: Admin: 10/13/23 08:56 Dose: 100 mg Documented By: Admin: 10/12/23 08:39 Dose: 100 mg Documented By: Admin: 10/11/23 09:31 Dose: Not Given Documented By: Admin: 10/10/23 10:30 Dose: 100 mg Documented By: ES Morphine Sulfate (Morphine Sulfate 2 Mg/Ml Carp) 2 mg IV Q3H PRN PRN Reason: pain (5+) Stop: 10/23/23 16:29 Last Admin: 10/16/23 08:40 Dose: 2 mg Documented By: Admin: 10/14/23 11:31 Dose: 2 mg Documented By: KKBecca Admin: 10/14/23 03:48 Dose: 2 mg Documented By: Admin: 10/13/23 21:00 Dose: 2 mg Documented By: Admin: 10/13/23 18:39 Dose: 2 mg Documented By: Admin: 10/13/23 05:58 Dose: 2 mg Documented By: Admin: 10/12/23 09:51 Dose: 2 mg Documented By: Admin: 10/12/23 04:34 Dose: 2 mg Documented By: Admin: 10/11/23 20:06 Dose: 2 mg Documented By: Admin: 10/11/23 12:35 Dose: 2 mg Documented By: Admin: 10/11/23 09:25 Dose: 2 mg Documented By: Admin: 10/11/23 05:50 Dose: 2 mg Documented By: Admin: 10/10/23 17:18 Dose: 2 mg Documented By: Admin: 10/10/23 13:51 Dose: 2 mg Documented By: Admin: 10/09/23 17:09 Dose: 2 mg Documented By: CRISTIAN Multivitamins (Multivitamin Tab) 1 tab PO QAM [facility] Stop: 11/13/23 08:59 Last Admin: 10/16/23 08:34 Dose: 1 tab Documented By: Admin: 10/15/23 09:34 Dose: 1 tab Documented By: Admin: 10/14/23 08:57 Dose: 1 tab Documented By: KEHINDE Ondansetron HCl (Ondansetron Inj 2 Mg/Ml 2 Ml Vial) 4 mg IV Q6H PRN PRN Reason: Nausea And Vomiting Stop: 11/08/23 17:04 Last Admin: 10/16/23 08:41 Dose: 4 mg Documented By: Admin: 10/14/23 03:48 Dose: 4 mg Documented By: Admin: 10/13/23 20:43 Dose: 4 mg Documented By: Admin: 10/13/23 05:59 Dose: 4 mg Documented By: Admin: 10/12/23 09:51 Dose: 4 mg Documented By: Admin: 10/11/23 09:25 Dose: 4 mg Documented By: Admin: 10/10/23 17:26 Dose: 4 mg Documented By: Admin: 10/10/23 13:51 Dose: 4 mg Documented By: PARKER Pantoprazole Sodium (Pantoprazole 40 Mg Tab) 40 mg PO BID [facility] Stop: 11/08/23 20:59 Last Admin: 10/16/23 08:32 Dose: 40 mg Documented By: Admin: 10/15/23 21:52 Dose: 40 mg Documented By: Admin: 10/15/23 09:33 Dose: 40 mg Documented By: Admin: 10/14/23 21:49 Dose: 40 mg Documented By: Admin: 10/14/23 08:56 Dose: 40 mg Documented By: Admin: 10/13/23 20:44 Dose: 40 mg Documented By: Admin: 10/13/23 08:44 Dose: Not Given Documented By: Admin: 10/12/23 20:31 Dose: 40 mg Documented By: Admin: 10/12/23 08:40 Dose: 40 mg Documented By: Admin: 10/11/23 20:05 Dose: 40 mg Documented By: Admin: 10/11/23 09:27 Dose: 40 mg Documented By: Admin: 10/10/23 20:03 Dose: 40 mg Documented By: Admin: 10/10/23 10:30 Dose: 40 mg Documented By: Admin: 10/09/23 20:21 Dose: 40 mg Documented By: CARINA Polyethylene Glycol (Polyethylene (Miralax) 17 Gm Pack) 17 gm PO DAILY [facility] Stop: 11/10/23 16:59 Last Admin: 10/16/23 08:33 Dose: Not Given Documented By: Admin: 10/15/23 09:49 Dose: Not Given Documented By: Admin: 10/14/23 09:00 Dose: 17 gm Documented By: KKBecca Admin: 10/13/23 20:43 Dose: 17 gm Documented By: Admin: 10/12/23 08:40 Dose: 17 gm Documented By: Admin: 10/11/23 17:28 Dose: 17 gm Documented By: CARMELO Sennosides (Senna 8.6 Mg Tab) 17.2 mg PO [facility] Stop: 11/12/23 20:59 Last Admin: 10/15/23 21:51 Dose: 17.2 mg Documented By: Admin: 10/14/23 21:48 Dose: 17.2 mg Documented By: Admin: 10/13/23 20:43 Dose: 17.2 mg Documented By: ARIANE Sertraline HCl (Sertraline Hcl 50 Mg Tablet) 50 mg PO DAILY [facility] Stop: 11/09/23 08:59 Last Admin: 10/16/23 08:32 Dose: 50 mg Documented By: Admin: 10/15/23 09:34 Dose: 50 mg Documented By: Admin: 10/14/23 08:55 Dose: 50 mg Documented By: Admin: 10/13/23 08:44 Dose: Not Given Documented By: Admin: 10/12/23 08:40 Dose: 50 mg Documented By: Admin: 10/11/23 09:27 Dose: 50 mg Documented By: Admin: 10/10/23 10:31 Dose: 50 mg Documented By: MIO Vitamin D (Cholecalciferol 1,000 Units 25 Mcg Tab) 2,000 units PO [facility] Stop: 11/09/23 10:59 Last Admin: 10/16/23 08:32 Dose: 2,000 units Documented By: Admin: 10/15/23 09:32 Dose: 2,000 units Documented By: Admin: 10/14/23 08:55 Dose: 2,000 units Documented By: Admin: 10/13/23 08:44 Dose: Not Given Documented By: Admin: 10/12/23 08:39 Dose: 2,000 units Documented By: Admin: 10/11/23 09:37 Dose: Not Given Documented By: Admin: 10/10/23 13:33 Dose: 2,000 units Documented By: PARKER Coding Level of Care Code 24514 [facility] Intl Hosp Care Lvl 3 Diagnoses Acute stress disorder F43.0 JOSTIN (generalized anxiety disorder) F41.1 Major depressive disorder, recurrent, mild F33.0 Time Spent (min) 81
[2023-10-16] MEDS: LORazepam 0.5 MG TAB PO PRN (21:43)
[2023-10-16] MEDS: SENNA 8.6 MG TAB PO SCH (21:45)
[2023-10-17] MEDS: dilTIAZem HCL 30 MG TAB PO SCH ×4 (03:07→21:15)
[2023-10-17 06:38] LABS: Hematocrit (blood only) 29.7 % (37.0-47.0); Hemoglobin 9.2 g/dl (12.0-16.0); Mean Corpuscular Hemoglobin 20.8 pg (25.0-34.0); Mean Platelet Volume 11.3 fL (9.4-12.4); Nucleated RBC # (auto) 0.02 K/uL (0.00-0.12); Nucleated RBC % (auto) 0.2 %; Platelet Count 237 K/uL (130-400); RDW Coefficient of Variation 14.3 % (11.5-14.5); Red Blood Count 4.43 M/uL (4.20-5.40); White Blood Count 10.75 K/ul (4.8-10.8)
[2023-10-17 06:49] LABS: BUN Creatinine Ratio 21.6 (10-20); Calcium 8.6 mg/dl (8.6-10.3); Creatinine Clr Calc Pharmacy 83.1 ml/min; Est GFR (African American) 99.5 ml/min; Est GFR (Non-African American) 85.9 ml/min; Potassium 3.4 mmol/L (3.5-5.1)
--- NOTE | 2023-10-17 08:06 | Hospitalist Progress Note ---
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 Christian 10/13 -Pain control: prn Tylenol and morphine -Continue Eliquis BID -hgb stable -PT/OT -10/11: Vit D level: 15.7, 2000 units daily ordered -PRN tylenol and morphine for pain -Will need rehab placement (3) Paroxysmal atrial fibrillation: Plan: -Flipped to Afib evening of 10/11, rates 100-160s -10/[address] Bland, cardiology - increase flecainide to 150mg BID and continue IV Lopressor as BP allows -Continue metoprolol 100mg QD -Continue Eliquis -10/15 added PO Cardizem - Rate remain elevated, cardiology consulted, appreciate recs -Plan for cardioversion 10/18 -Continue diuresis --> lasix 20 mg BID -Consider transition to amiodarone in the outpatient setting (4) Hypoxia: Plan: -Patient was reportedly hypoxic for EMS on arrival. No baseline oxygen needs -10/09: CT of the thoracic spine mentions mild pulmonary edema and small BL pleural effusions, lung exam is essentially clear -Patient also mentions that she is often started on O2 while admitted and sleep ing, likely has some component of EDGAR and/or obesity hypoventilation syndrome -10/10: CXR without signs of pneumonia, CTA without PE -10/15 CXR: Trace bilateral pleural effusion, bibasilar densitiesatelectasis vs pneumonia? -Will start IV lasix --> replace K as needed -keep Reardon in place while giving IV Lasix -Incentive spirometry, flutter therapy, prn O2 to keep SpO2 at or above 94% (5) Anxiety: Plan: -Continue Zoloft, Klonopin and prn ativan -Family reporting worsening anxiety, requesting psych consult- appreciate recs -Diagnosed with acute stress disorder -Increase Zoloft to 75mg for 2 days, then 100 mg therafter (starting 10/19) -Klonopin increased to TID, will need a new rx at discharge for normal tabs (not ODT) (6) (HFpEF) heart failure with preserved ejection fraction: Plan: Acute on chronic HFpEF -Patient appeared dehydrated on admission despite mild pulmonary edema and small BL pleural effusions on thoracic spine CT - Given 40mg lasix IV in the ED -No significant fluid on auscultation of lungs on admission -BNP: 802 -Daily weight - patient reports that she weighs herself daily at home and ~179# +3kg since surgery, lasix as above (7) Leukocytosis: Plan: -Patient with WBC of 22 with neutrophil predominance of 19 on admission -Febrile overnight 10/09 --> Unasyn and doxycycline - 12/ PM to 10/14 for 6 days of treatment -Will obtain blood cultures on admission, unfortunately she was given Zosyn and no blood cultures were obtain in the ED -->No growth after 5 days - Improved after antibiotic, slight increase on 10/14 after surgery but patient received dexamethasone. Now WNL (8) Hypertension: Plan: -Stable, hypotensive at times -Will continue home metoprolol, mainly for afib -Home amlodipine and lisinopril initially held in the setting of dehydration and rhabdomyolysis - will continue to hold as pressures have been stable/low without (9) Rhabdomyolysis: Plan: Mild present on admission, resolved. (10) Iron (Fe) deficiency anemia: Plan: -confirmed by iron studies 10/17 -Daily Fe supplementation Plan Dispo: Continued inpatient stay VTE prophy: Caraquis Admission and Anticipated Discharge Date Admission Date: October 09, 2023 Supervising Physician Co-Signing Physician Notes Attending Attestation - Chart reviewed, care plan d/w GIACOMO Alfaro. I agree w/ the palmer components of her documentation. Cardiology consulted for rapid a.fib as the a.fib has been unresponsive to AV lauryn agents as well as increased dose of flecainide. Plan - cardioversion tomorrow on 10/18/23. Continue diuresis for decompensated CHF. Caio Smith MD Subjective Pateint lying in bed, tearful with alot of anxiety about everything going on with her health and unsure if her daughter knows. Reassured patient that I will call and update her daughter. Also reporting pain in her hip. Reassured patient that I ordered the new pysch medications that were recommended. Continues to deny any symptoms from the afib, or shortness of breath. Tele - afib mainly 110-130s but did get up to the 150s Review of Systems Review of Systems: All systems reviewed & are unremarkable except as noted in Subjective Physical Exam Physical Exam: General: WN/WD, NAD, VS as above Resp: normal respiratory effort, no accessory muscle use, able to speak in full sentences, CTA CV: irregular and rapid, no murmur, Abd: normal bowel sounds, non tender, no hepatosplenomegaly Extremities:distal pulses intact bilaterally. Ice pack over R hip, dressing c/d/i. Mild edema bilateral legs, but improving. Neuro: A&O x3, Skin: intact, no lesions noted Results & Data Results & Data Vital Signs (Past 12 Hours) Vital Signs Temp Pulse Pulse Resp BP Pulse Ox O2 Del Method 10/17/23 07:49 36.8 C 128 H 18 107/67 92 Nasal Cannula 10/17/23 07:37 123 H 10/17/23 03:30 36.7 C 133 H 18 114/77 92 Nasal Cannula 10/17/23 01:43 Nasal Cannula 10/16/23 23:00 36.8 C 109 H 20 126/71 95 Nasal Cannula 10/16/23 22:01 132 H O2 Flow Rate 10/17/23 07:49 3 10/17/23 07:37 10/17/23 03:30 4 10/17/23 01:43 4 10/16/23 23:00 4 10/16/23 22:01 Laboratory Results CBC and CMP reviewed PG Care Time/CCT Total # of Minutes Spent Total Time Spent with Patient: Total time spent is greater than 50% in coordination of care (as documented) at patient's floor/unit and/or counseling patient: Coding Level of Care Code 95483 SUB INP/OBS CARE 2/35MIN Diagnoses Fall W19.XXXA Closed right hip fracture S72.001A Encounter type: initial encounter Paroxysmal atrial fibrillation I48.0 Hypoxia R09.02 Anxiety F41.9 (HFpEF) heart failure with preserved ejection fraction I50.30 Leukocytosis D72.829 Leukocytosis type: unspecified Hypertension I10 Rhabdomyolysis M62.82 Encounter type: initial encounter Iron (Fe) deficiency anemia D50.9 (2) Closed right hip fracture Encounter type: initial encounter Qualified Code(s): S72.001A - Fracture of unspecified part of neck of right femur, initial encounter for closed fracture (7) Leukocytosis Leukocytosis type: unspecified Qualified Code(s): D72.829 - Elevated white blood cell count, unspecified (9) Rhabdomyolysis Encounter type: initial encounter
[2023-10-17] MEDS ORDERED: POTASSIUM CHLORIDE CRTAB 20 MEQ TABCR PO STA (08:08)
[2023-10-17] MEDS ORDERED: FUROSEMIDE INJ 20 MG/2 ML VIAL IV ONE (09:37)
--- NOTE | 2023-10-17 10:05 | Cardiology Progress Note ---
Date of Service October 17, 2023 Assessment & Plan (1) Paroxysmal atrial fibrillation: Plan: 1. Atrial fibrillation: Although she has had paroxysmal atrial fibrillation in the past it appears more persistent now, which is part of the natural history of atrial fibrillation. Her heart rate is a bit fast. We could consider better rate control, however converting her rhythm may be better in the long run. We may have to switch agents, but I am reluctant to do that now without being confident that she does not have left atrial clot. I think therefore we need to ANITHA, and we might as well do the cardioversion while she is under anesthesia. Perhaps it will hold, although she may have recurrence as we switch antiarrhythmic agents. I discussed to some extent different agents but we can make a final decision in the future. She is agreeable to this plan. I have scheduled her for a ANITHA cardioversion tomorrow although not sure yet who will be doing it. Admission and Anticipated Discharge Date Admission Date: October 09, 2023 Subjective She is feeling relatively well today, she remains unaware of her rhythm despite remaining in atrial fibrillation with a rapid heart rate. Physical Exam Physical Exam: Constitutional: Alert, cooperative and in no distress. HEENT: Unremarkable Neck: No jugular venous distention, carotid pulses are irregular but otherwise normal and equal bilaterally without bruits. Pulmonary: Clear to auscultation bilaterally. Cardiac: Irregular rhythm with no murmur, gallop or rub. Abdomen: Soft, nontender with normal bowel sounds. Extremities: No edema. Distal pulses intact. Neurologic: No focal findings. Skin: No rash, ecchymoses or petechiae. Results & Data Vital Signs (Past 12 Hours) Vital Signs Temp Pulse Pulse Resp BP Pulse Ox O2 Del Method 10/17/23 08:00 Nasal Cannula 10/17/23 07:49 36.8 C 128 H 18 107/67 92 Nasal Cannula 10/17/23 07:37 123 H 10/17/23 03:30 36.7 C 133 H 18 114/77 92 Nasal Cannula 10/17/23 01:43 Nasal Cannula 10/16/23 23:00 36.8 C 109 H 20 126/71 95 Nasal Cannula O2 Flow Rate 10/17/23 08:00 3 10/17/23 07:49 3 10/17/23 07:37 10/17/23 03:30 4 10/17/23 01:43 4 10/16/23 23:00 4 Laboratory Results CBC 10/17/23 Range/Units 05:40 WBC 10.75 (4.8-10.8) K/ul RBC 4.43 (4.20-5.40) M/uL Hgb 9.2 L (12.0-16.0) g/dl Hct 29.7 L (37.0-47.0) % Plt Count 237 (130-400) K/uL Comprehensive Metabolic Panel 10/17/23 Range/Units 05:40 Sodium 138 (136-145) mmol/L Potassium 3.4 L (3.5-5.1) mmol/L Chloride 102 (98-107) mmol/L Carbon Dioxide 31 (21-32) mmol/L BUN 11 (6-23) mg/dl Creatinine 0.51 L (0.6-1.2) mg/dl Glucose 108 H (70-99(Fasting)) mg/dl Calcium 8.6 (8.6-10.3) mg/dl Intake and Output 10/16/23 10/17/23 10/17/23 22:59 06:59 14:59 Intake Total 955 / 1075 Output Total 1450 / 1850 400 / 1850 Balance -495 / -775 -400 / -775 Intake: Oral 955 / 1075 Output: Urine Amount (Catheter) 1450 / 1850 400 / 1850 Reardon/Indwelling 1450 / 1850 400 / 1850 Other: Other Intake Source NPO Weight 87 kg Weight Measurement Method Built in [facility] Diagnostic Findings Telemetry: Atrial fibrillation, heart rate averaging 110 to 120 bpm. PG Care Time/CCT Total # of Minutes Spent Total Time Spent with Patient: Total time spent is greater than 50% in coordination of care (as documented) at patient's floor/unit and/or counseling patient: Coding Level of Care Code 32644 SUB INP/OBS CARE 3/50MIN Diagnoses Paroxysmal atrial fibrillation I48.0
[2023-10-17] MEDS: SERTRALINE HCL 50 MG TABLET PO SCH (11:44)
[2023-10-17] MEDS: FERROUS SULFATE 325 MG TAB PO SCH (11:45)
[2023-10-17] MEDS: FLECAINIDE ACETATE 100 MG TABLET PO SCH ×2 (11:46→21:16)
[2023-10-17] MEDS: PANTOprazole 40 MG TAB PO SCH ×2 (11:46→21:15)
[2023-10-17] MEDS: DOCUSATE SODIUM 100 MG CAP PO SCH ×2 (11:47→21:18)
[2023-10-17] MEDS: METOPROLOL SUCC 50MG EXT REL TAB PO SCH (11:47)
[2023-10-17] MEDS: APIXABAN 5 MG TABLET PO SCH ×2 (11:47→21:16)
[2023-10-17] MEDS: CHOLECALCIFEROL 1,000 UNITS 25 MCG TAB PO SCH (11:48)
[2023-10-17] MEDS: MULTIVITAMIN TAB PO SCH (11:48)
[2023-10-17] MEDS: clonazePAM 0.25 MG TAB PO SCH ×3 (11:51→21:14)
[2023-10-17] MEDS: POLYETHYLENE (MIRALAX) 17 GM PACK PO SCH (11:52)
[2023-10-17] MEDS ORDERED: COUGH DROP (SUGAR FREE) LOZ 24 LOZ/1 BOX BUCCAL STA (16:13)
[2023-10-17] MEDS: ACETAMINOPHEN 500 MG TAB PO PRN (16:28)
[2023-10-17] MEDS: FUROSEMIDE INJ 20 MG/2 ML VIAL IV SCH (18:07)
[2023-10-17] MEDS: MoRPHine SULFATE 2 MG/ML CARP IV PRN (21:13)
[2023-10-17] MEDS: ONDANSETRON INJ 2 MG/ML 2 ML VIAL IV PRN (21:14)
[2023-10-17] MEDS: SENNA 8.6 MG TAB PO SCH (21:18)
[2023-10-18] MEDS: dilTIAZem HCL 30 MG TAB PO SCH (03:06)
[2023-10-18 06:42] LABS: Calcium 8.5 mg/dl (8.6-10.3); Creatinine Clr Calc Pharmacy 84.2 ml/min; Est GFR (African American) 100.2 ml/min; Est GFR (Non-African American) 86.4 ml/min; Potassium 3.5 mmol/L (3.5-5.1)
--- NOTE | 2023-10-18 07:01 | Anesthesiology Consultation ---
Date of Service October 18, 2023 Assessment & Plan (1) Encounter for pre-operative examination: Chart Review Chart Review: Acceptable Risk for Surgery and Patient NOT seen in Pre Admission Testing Consults Requested none History Surgery Operation Date: 10/13/23 07:00 Proposed Procedures p Right Hip Hemiarthroplasty - Wes Flanagan DO Operation Date: 10/18/23 07:15 Proposed Procedures p Cardiac Cath Procedure - Ryan Jackson MD Height/Weight Height: 5 ft 5 in Weight: 85.9 kg Allergies Allergy/AdvReac Type Severity Reaction Status Date / Time metronidazole Allergy Intermediate HIVES Verified 10/09/23 16:33 naproxen Allergy Intermediate HIVES Verified 10/09/23 16:33 perflutren [From PowerD[employer]] AdvReac Back Pain Verified 10/10/23 07:53 Medications Home Medications Medication Instructions Recorded Confirmed Last Taken flecainide 100 mg tablet 100 mg PO Q12H #180 tabs 07/28/19 10/09/23 10/07/23 furosemide 40 mg tablet 40 mg PO DAILY 07/28/19 10/09/23 10/07/23 lorazepam 0.5 mg tablet 0.5 mg PO PM PRN Insomnia 07/28/19 10/09/23 Unknown potassium chloride 20 mEq 20 meq PO DAILY 07/28/19 10/09/23 10/07/23 tablet,extended release multivitamin 1 tab PO QAM 08/27/19 10/09/23 10/07/23 amlodipine 5 mg tablet (Norvasc) 5 mg PO BID #60 tabs 08/29/19 10/09/23 10/07/23 clonazepam 0.25 mg disintegrating 0.25 mg PO BID #60 tabs 08/29/19 10/09/23 10/07/23 tablet metoprolol succinate 100 mg 100 mg PO DAILY 06/16/21 10/09/23 10/07/23 tablet,extended release 24 hr (Toprol XL) apixaban 5 mg tablet (Eliquis) 5 mg PO BID #180 tabs 07/21/21 10/09/23 10/07/23 lisinopril 20 mg tablet 20 mg PO BID 04/23/23 10/09/23 10/07/23 pantoprazole 20 mg tablet,delayed 20 mg PO BID 04/23/23 10/09/2323 release sertraline 50 mg tablet 50 mg PO DAILY 04/23/23 10/09/23 10/07/23 acetaminophen 500 mg tablet 500 mg PO DIRECTED PRN 10/09/23 10/09/23 10/07/23 (Tylenol Extra Strength) ARTHRITIS PAIN carboxymethylcellulose 0.5 1 drp ophthalmic (eye) DIRECTED 10/09/23 10/09/23 Unknown %-glycerin 0.9 % eye drops PRN Dry Eyes (Refresh Optive) loperamide 2 mg tablet 2 mg PO DIRECTED PRN Diarrhea 10/09/23 10/09/23 Unknown simethicone 125 mg chewable tablet 125 mg PO DIRECTED PRN GAS 10/09/23 10/09/23 Unknown (Gas-X Extra Strength) RELIEF Active Medications Generic Name Dose Route Start Last Admin Trade Name Freq PRN Reason Stop Dose Admin Acetaminophen 500 mg 10/15/23 11:58 10/17/23 16:28 Acetaminophen 500 Mg Tab PO 11/10/23 11:51 500 mg Q4H PRN Administration Mild-Mod Pain (Scale 1-6) Apixaban 5 mg 10/14/23 12:00 10/17/23 21:16 Apixaban 5 Mg Tablet PO 11/13/23 11:59 5 mg BID RAMIRO Administration Clonazepam 0.25 mg 10/17/23 09:00 10/17/23 21:14 Clonazepam 0.25 Mg Tab PO 11/16/23 08:59 0.25 mg TID RAMIRO Administration Diltiazem HCl 30 mg 10/15/23 09:05 10/18/23 03:06 Diltiazem Hcl 30 Mg Tab PO 11/14/23 09:04 30 mg Q6H RAMIRO Administration Docusate Sodium 100 mg 10/13/23 21:00 10/17/23 21:18 Docusate Sodium 100 Mg Cap PO 11/12/23 20:59 Not Given BID RAMIRO Ferrous Sulfate 325 mg 10/17/23 09:00 10/17/23 11:45 Ferrous Sulfate 325 Mg Tab PO 11/16/23 08:59 325 mg QAM RAMIRO Administration Flecainide Acetate 150 mg 10/14/23 21:00 10/17/23 21:16 Flecainide Acetate 100 Mg Tablet PO 11/13/23 20:59 150 mg Q12 RAMIRO Administration Furosemide 20 mg 10/17/23 17:00 10/17/23 18:07 Furosemide Inj 20 Mg/2 Ml Vial IV 11/16/23 16:59 20 mg BID17 RAMIRO Administration Lorazepam 0.5 mg 10/12/23 16:46 10/16/23 21:43 Lorazepam 0.5 Mg Tab PO 11/11/23 16:45 0.5 mg Q12 PRN Administration Anxiety/Insomnia Metoprolol Succinate 100 mg 10/10/23 09:00 10/17/23 11:47 Metoprolol Succ 50mg Ext Rel Tab PO 11/09/23 08:59 100 mg DAILY RAMIRO Administration Morphine Sulfate 2 mg 10/09/23 16:19 10/17/23 21:13 Morphine Sulfate 2 Mg/Ml Carp IV 10/23/23 16:29 2 mg Q3H PRN Administration pain (5+) Multivitamins 1 tab 10/14/23 09:00 10/17/23 11:48 Multivitamin Tab PO 11/13/23 08:59 1 tab QAM RAMIRO Administration Ondansetron HCl 4 mg 10/09/23 17:05 10/17/23 21:14 Ondansetron Inj 2 Mg/Ml 2 Ml Vial IV 11/08/23 17:04 4 mg Q6H PRN Administration Nausea And Vomiting Pantoprazole Sodium 40 mg 10/09/23 21:00 10/17/23 21:15 Pantoprazole 40 Mg Tab PO 11/08/23 20:59 40 mg BID RAMIRO Administration Polyethylene Glycol 17 gm 10/11/23 17:00 10/17/23 11:52 Polyethylene (Miralax) 17 Gm Pack PO 11/10/23 16:59 Not Given DAILY RAMIRO Sennosides 17.2 mg 10/13/23 21:00 10/17/23 21:18 Senna 8.6 Mg Tab PO 11/12/23 20:59 Not Given HS RAMIRO Sertraline HCl 75 mg 10/17/23 09:00 10/17/23 11:44 Sertraline Hcl 50 Mg Tablet PO 10/18/23 13:59 75 mg DAILY RAMIRO Administration Vitamin D 2,000 units 10/10/23 11:00 10/17/23 11:48 Cholecalciferol 1,000 Units 25 Mcg Tab PO 11/09/23 10:59 2,000 units QAM RAMIRO Administration NPO Date Last Intake of Fluids: 10/13/23 Time Last Intake of Fluids: 08:30 Last Intake of Fluids Comment: sip water w/meds Date Last Intake of Solids: 10/12/23 Time Last Intake of Solids: 19:30 Past Medical History Medical History (Updated 10/17/23 @ 13:52 by Linette Alfaro PA-C) Major depressive disorder, recurrent, mild JOSTIN (generalized anxiety disorder) Acute stress disorder Troponin level elevated Rhabdomyolysis Hypoxia Encounter for pre-operative examination Hypertension Anticoagulant long-term use Chest pain Paroxysmal atrial fibrillation CHF (congestive heart failure) Chest pain Past Family History Family History Father , age 60 Colorectal cancer Mother , age 98 Dementia Hypertension Stroke Sister , age 60s Mesothelioma Denies family history of Coronary heart disease AAA (abdominal aortic aneurysm) Past Surgical History Surgical History History of 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 History of dilatation and curettage x 2 History of hysterectomy with BSO Social History Smoking Status: Never smoker Do You Dip or Chew Tobacco: No Hx Alcohol Use: Yes Alcohol type: wine alcohol intake frequency: holidays/special occasions only Hx Substance Use: No substance use type: does not use Physical Exam Vital Signs Last Vital Signs Temp 98.2 F 10/18/23 03:11 Pulse 102 H 10/18/23 03:11 Resp 20 10/18/23 03:11 BP 123/78 10/18/23 03:11 Pulse Ox 92 10/18/23 03:11 O2 Del Method Nasal Cannula 10/18/23 03:11 O2 Flow Rate 2 10/18/23 03:11 Testing Laboratory Results 10/17/23 05:40 10/18/23 05:23 PT 11.4 Seconds (9.0-12.0) 10/11/23 01:49 INR 1.0 (0.9-1.1) 10/11/23 01:49 Urine Color Yellow 10/09/23 14:43 Urine Appearance Clear (Clear) 10/09/23 14:43 Urine pH 6.5 (4.5-7.5) 10/09/23 14:43 Ur Specific [place] 1.020 (1.000-1.030) 10/09/23 14:43 Urine Protein 2+ (Negative) H 10/09/23 14:43 Urine Glucose (UA) Negative (Negative) 10/09/23 14:43 Urine Ketones 1+ (Negative) H 10/09/23 14:43 Urine Nitrite Negative (Negative) 10/09/23 14:43 Ur Leukocyte Esterase Negative (Negative) 10/09/23 14:43 Urine WBC (Auto) 1-5 /hpf (0-5) 10/09/23 14:43 Urine RBC (Auto) 5-10 /hpf (0-4) H 10/09/23 14:43 U Hyaline Cast (Auto) 0 /lpf (0-5) 10/09/23 14:43 U Epithel Cells (Auto) 10-20 /lpf (0-5) H 10/09/23 14:43 Urine Bacteria (Auto) Negative (Negative) 10/09/23 14:43 Blood Type O Positive 10/09/23 20:09 Antibody Screen NEGATIVE 10/09/23 20:09 10/09/23 16:46 Aerobic Blood Culture - Final Blood No growth in Aerobic bottle after 5 days. Anaerobic Blood Culture - Final No growth in Anaerobic bottle after 5 days. 10/09/23 16:50 Aerobic Blood Culture - Final Blood No growth in Aerobic bottle after 5 days. Anaerobic Blood Culture - Final No growth in Anaerobic bottle after 5 days. Electrocardiogram Date: 10/09/23 DICTATED BY: Mejia Bland MD Test Reason : Blood Pressure : / mmHG Vent. Rate : 078 BPM Atrial Rate : 078 BPM P-R Int : 234 ms QRS Dur : 098 ms QT Int : 394 ms P-R-T Axes : 071 -16 049 degrees QTc Int : 449 ms Sinus rhythm with 1st degree A-V block Incomplete right bundle branch block Minimal voltage criteria for LVH, may be normal variant ( ) Septal infarct , age undetermined Abnormal ECG When compared with ECG of 23-APR-2023 05:34, Incomplete right bundle branch block is now Present Septal infarct is now Present Confirmed by Mejia Bland ([id number]) on 10/09/2023 1:35:00 PM Chest X-Ray Date: 10/09/23 XR chest 1V portable CLINICAL HISTORY: increasing O2 needs TECHNIQUE: Single frontal radiograph of the chest was obtained. Comparison: Comparison is made to chest radiograph 10/09/2023 FINDINGS: No lines and tubes are seen. Calcified aortic knob is seen. The lungs are clear. No evidence of pleural effusion or pneumothorax. IMPRESSION: No acute chest disease. Cardiomegaly is noted. Echocardiogram Date: 10/10/23 LV systolic function is normal. No RWMA noted. Mild LVH EF 60-65% NO . Other Testing 10/10/[address]: CT angio chest PE protocol CLINICAL HISTORY: PE TECHNIQUE: Multidetector row helical CT of the chest was performed with angiographic protocol. Coronal and sagittal reformations were obtained. Coronal and sagittal MIPS were obtained from the axial data set and were submitted for review. Automated dose lowering techniques and/or adjustment according to patient size were utilized for this exam. CT DOSE: 765.13 mGy.cm Comparison: Comparison is made to CT chest 04/26/2022 FINDINGS: Lungs and pleura: There is a 5 mm nodule in the right upper lobe (series 4 image 69). There is trace bilateral pleural effusion with underlying atelectasis. Heart and pericardium: Cardiomegaly is seen with biatrial enlargement. Vessels: No evidence of pulmonary embolism. Mediastinum and sherrie: Unremarkable. Chest wall and lower neck: Small thyroid nodules are noted which do not require follow-up by ACR criteria. Abdomen: Unremarkable. Bones: Degenerative changes in the thoracic spine. IMPRESSION: 1. No acute abnormality and in particular no evidence of pulmonary embolus. 2. Atelectasis and trace bilateral pleural effusions.
[2023-10-18] MEDS ORDERED: LIDOCAINE 2% 2 ML VIAL/AMP(20MG/ML) INFIL ONE (07:03)
[2023-10-18] MEDS ORDERED: PHENYLEPHRINE 100MCG/ML 5ML SYR ONE (07:03)
[2023-10-18] MEDS ORDERED: PROPOFOL IV EMULSION 10 MG/ML 20 ML VIAL IV ONE (07:03)
[2023-10-18] MEDS ORDERED: BENZOCAINE/TETRACAIN/BUTAM 50 APPLN/5 GM CAN EXT ONE (07:04)
--- NOTE | 2023-10-18 07:32 | Anesthesiology Progress Note ---
Date of Service October 18, 2023 Anesthesia Post Procedure Vital Signs Vital Signs: Temp Pulse Pulse Resp BP Pulse Ox O2 Del Method 10/18/23 07:00 120 H 20 115/82 93 Nasal Cannula 10/18/23 03:11 98.2 F 102 H 20 123/78 92 Nasal Cannula 10/18/23 00:49 Nasal Cannula 10/17/23 23:49 98.4 F 102 H 20 105/62 92 Nasal Cannula 10/17/23 22:40 106 H 10/17/23 19:30 97.7 F 102 H 20 107/65 94 Nasal Cannula 10/17/23 16:01 97.7 F 112 H 18 120/72 92 Nasal Cannula 10/17/23 10:59 97.9 F 123 H 20 116/64 90 Nasal Cannula 10/17/23 08:00 Nasal Cannula 10/17/23 07:49 98.2 F 128 H 18 107/67 92 Nasal Cannula 10/17/23 07:37 123 H O2 Flow Rate 10/18/23 07:00 3 10/18/23 03:11 2 10/18/23 00:49 3 10/17/23 23:49 2 10/17/23 22:40 10/17/23 19:30 2 10/17/23 16:01 3 10/17/23 10:59 3 10/17/23 08:00 3 10/17/23 07:49 3 10/17/23 07:37 Pain Intensity Right Hip: Pain Intensity: 5 Transfer of Care Handoff Completed per policy Notes Mental Status: alert / awake / arousable and participated in evaluation Patient Amnestic to Procedure: Yes Nausea / Vomiting: adequately controlled Pain: adequately controlled Airway Patency, RR, SpO2: stable & adequate BP & HR: stable & adequate Hydration State: stable & adequate Anesthetic Complications: no major complications apparent and Pt Satisfied with anesthetic care
--- NOTE | 2023-10-18 08:06 | Cardioversion ---
Date of Service October 18, 2023 PG Electrical Cardioversion Rp Electrical Cardioversion Report Procedure performed: Cardioversion Indication: Atrial fibrillation Staff employee relations advisor: Ryan Jackson MD Procedure in detail: The patient was informed of the risks benefits and alternatives to the intended procedure. He understood such which proceed. He was taken to the cardiac catheterization suite holding area. A general anesthetic was administered by the Anesthesiology Service. Once appropriately anesthetized, the patient was cardioverted using 200 joules delivered in a biphasic fashion. This returned the patient to sinus rhythm. The patient tolerated procedure well, there were no immediate complications. Patient was neurologically intact subsequent to the procedure. Impression: Successful cardioversion from atrial fibrillation to normal sinus rhythm Coding Level of Care Code 81076 CARDIOVERSION, ELECTIVE Additional Codes Electrical Cardioversion Report ([id number])
--- NOTE | 2023-10-18 08:58 | Electrocardiogram Report ---
Test Reason : Blood Pressure : / mmHG Vent. Rate : 064 BPM Atrial Rate : 064 BPM P-R Int : 262 ms QRS Dur : 114 ms QT Int : 446 ms P-R-T Axes : 077 -26 050 degrees QTc Int : 460 ms Poor data quality, interpretation may be adversely affected Sinus rhythm with 1st degree A-V block Incomplete right bundle branch block Borderline ECG When compared with ECG of 09-OCT-2023 12:55, Criteria for Septal infarct are no longer Present Confirmed by Ebenezer Antoine ([id number]) on 10/18/2023 8:57:52 AM Referred By: REFERRED SELF Confirmed By:Ebenezer Antoine
[2023-10-18] MEDS: DOCUSATE SODIUM 100 MG CAP PO SCH ×2 (09:52→20:12)
[2023-10-18] MEDS: SERTRALINE HCL 50 MG TABLET PO SCH (09:52)
[2023-10-18] MEDS: MULTIVITAMIN TAB PO SCH (09:52)
[2023-10-18] MEDS: METOPROLOL SUCC 50MG EXT REL TAB PO SCH (09:53)
[2023-10-18] MEDS: CHOLECALCIFEROL 1,000 UNITS 25 MCG TAB PO SCH (09:53)
[2023-10-18] MEDS: APIXABAN 5 MG TABLET PO SCH ×2 (09:53→20:12)
[2023-10-18] MEDS: FERROUS SULFATE 325 MG TAB PO SCH (09:53)
[2023-10-18] MEDS: PANTOprazole 40 MG TAB PO SCH ×2 (09:53→20:12)
[2023-10-18] MEDS: FLECAINIDE ACETATE 100 MG TABLET PO SCH ×2 (09:54→20:11)
[2023-10-18] MEDS: POLYETHYLENE (MIRALAX) 17 GM PACK PO SCH (09:54)
[2023-10-18] MEDS: FUROSEMIDE INJ 20 MG/2 ML VIAL IV SCH (09:55)
[2023-10-18] MEDS: clonazePAM 0.25 MG TAB PO SCH ×3 (09:56→20:11)
[2023-10-18] MEDS: ACETAMINOPHEN 500 MG TAB PO PRN ×2 (10:12→20:15)
--- NOTE | 2023-10-18 13:46 | Hospitalist Progress Note ---
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 Christian 10/13 -Pain control: prn Tylenol and morphine -Continue Eliquis BID -hgb stable -PT/OT -10/11: Vit D level: 15.7, 2000 units daily ordered -PRN tylenol and morphine for pain -Will need rehab placement (3) Paroxysmal atrial fibrillation: Plan: -Flipped to Afib evening of 10/11, rates 100-160s -10/[address] Bland, cardiology - increase flecainide to 150mg BID and continue IV Lopressor as BP allows - Rate remain elevated, cardiology consulted, appreciate recs - Continue Eliquis BID and Metoprolol 100mg qam -Cardioversion 10/18, patient currently maintains NSR -Consider transition to amiodarone in the outpatient setting (4) Hypoxia: Plan: -Patient was reportedly hypoxic for EMS on arrival. No baseline oxygen needs -10/09: CT of the thoracic spine mentions mild pulmonary edema and small BL pleural effusions, lung exam is essentially clear -Patient also mentions that she is often started on O2 while admitted and sleeping, likely has some component of EDGAR and/or obesity hypoventilation syndrome -10/10: CXR without signs of pneumonia, CTA without PE -10/15 CXR: Trace bilateral pleural effusion, bibasilar densitiesatelectasis vs pneumonia? -Will start IV lasix --> replace K as needed -10/18 excellent repsonse to lasix, patient now hypotensive, will stop lasix -Incentive spirometry, flutter therapy, prn O2 to keep SpO2 at or above 94% (5) Anxiety: Plan: -Continue Zoloft, Klonopin and prn ativan -Family reporting worsening anxiety, requesting psych consult- appreciate recs -Diagnosed with acute stress disorder -Increase Zoloft to 75mg for 2 days, then 100 mg therafter (starting 10/19) -Klonopin increased to TID, will need a new rx at discharge for normal tabs (not ODT) -Orchestra Teacher visit (6) (HFpEF) heart failure with preserved ejection fraction: Plan: Acute on chronic HFpEF -Patient appeared dehydrated on admission despite mild pulmonary edema and small BL pleural effusions on thoracic spine CT - Given 40mg lasix IV in the ED -No significant fluid on auscultation of lungs on admission -BNP: 802 -Daily weight - patient reports that she weighs herself daily at home and ~179# +3kg since surgery, improved with lasix (7) Leukocytosis: Plan: -Patient with WBC of 22 with neutrophil predominance of 19 on admission -Febrile overnight 10/09 --> Unasyn and doxycycline - 12 PM to 10/14 for 6 days of treatment -Will obtain blood cultures on admission, unfortunately she was given Zosyn and no blood cultures were obtain in the ED -->No growth after 5 days - Improved after antibiotic, slight increase on 10/14 after surgery but patient received dexamethasone. Now WNL (8) Hypertension: Plan: -Stable, hypotensive at times -Will continue home metoprolol, mainly for afib -Home amlodipine and lisinopril initially held in the setting of dehydration and rhabdomyolysis - will continue to hold as pressures have been stable/low without (9) Rhabdomyolysis: Plan: Mild present on admission, resolved. (10) Iron (Fe) deficiency anemia: Plan: -confirmed by iron studies 10/17 -Daily Fe supplementation Plan Dispo: Continued inpatient stay, medically stable for rehab placement VTE prophy: Eliquis Admission and Anticipated Discharge Date Admission Date: October 09, 2023 Subjective patient seen sitting up in bed. Reports feeling fatigued after cardioversion this morning. Otherwise right hip pain is well-controlled. Just finished eating her breakfast. Hoping to continue to progress with therapy. Tele - afib overnight, now NSR 60s Review of Systems Review of Systems: All systems reviewed & are unremarkable except as noted in Subjective Physical Exam Physical Exam: General: WN/WD, NAD, VS as above Resp: normal respiratory effort, no accessory muscle use, able to speak in full sentences, CTA CV: RRR, no murmur, Extremities:distal pulses intact bilaterally. Ice pack over R hip, dressing c/d/i. Mild edema bilateral legs, but improving. Neuro: A&O x3, Skin: intact, no lesions noted Results & Data Results & Data Vital Signs (Past 12 Hours) Vital Signs Temp Pulse Pulse Pulse Resp BP Pulse Ox 10/18/23 11:21 37.2 C 64 18 91/57 L 94 10/18/23 08:34 67 10/18/23 08:00 10/18/23 08:00 63 18 105/74 93 10/18/23 07:45 63 18 104/52 L 93 10/18/23 07:25 64 18 108/55 L 93 10/18/23 07:00 120 H 20 115/82 93 10/18/23 03:11 36.8 C 102 H 20 123/78 92 O2 Del Method O2 Flow Rate 10/18/23 11:21 Nasal Cannula 3 10/18/23 08:34 10/18/23 08:00 Nasal Cannula 3 10/18/23 08:00 Oxymask 3 10/18/23 07:45 Oxymask 3 10/18/23 07:25 Oxymask 3 10/18/23 07:00 Nasal Cannula 3 10/18/23 03:11 Nasal Cannula 2 Laboratory Results chemistry reviewed PG Care Time/CCT Total # of Minutes Spent Total Time Spent with Patient: Total time spent is greater than 50% in coordination of care (as documented) at patient's floor/unit and/or counseling patient: Coding Level of Care Code 47807 SUB INP/OBS CARE 3/50MIN Diagnoses Fall W19.XXXA Closed right hip fracture S72.001A Encounter type: initial encounter Paroxysmal atrial fibrillation I48.0 Hypoxia R09.02 Anxiety F41.9 (HFpEF) heart failure with preserved ejection fraction I50.30 Leukocytosis D72.829 Leukocytosis type: unspecified Hypertension I10 Rhabdomyolysis M62.82 Encounter type: initial encounter Iron (Fe) deficiency anemia D50.9 (2) Closed right hip fracture Encounter type: initial encounter Qualified Code(s): S72.001A - Fracture of unspecified part of neck of right femur, initial encounter for closed fracture (7) Leukocytosis Leukocytosis type: unspecified Qualified Code(s): D72.829 - Elevated white blood cell count, unspecified (9) Rhabdomyolysis Encounter type: initial encounter
--- NOTE | 2023-10-18 14:22 | XCELERA ---
[id number] [id number]
[2023-10-18] MEDS: SENNA 8.6 MG TAB PO SCH (20:11)
[2023-10-18] MEDS: LORazepam 0.5 MG TAB PO PRN (20:15)
[2023-10-19 06:48] LABS: Est GFR (African American) 89.7 ml/min; Est GFR (Non-African American) 77.4 ml/min; Magnesium 1.9 mg/dl (1.7-2.4)
--- NOTE | 2023-10-19 08:03 | Hospitalist Progress Note ---
Date of Service October 19, 2023 Assessment & Plan (1) Closed right hip fracture: Plan: Patient sustained a mechanical fall in the late morning on 10/08 while attempting to sit on a chair in her living room, was likely on ground for 24 hours before being found by her daughter -Only signs of trauma at this time are her right hip fracture and bruising over the dorsum of the left foot -Xray: Nondisplaced fracture at the base of fifth proximal phalanx LEFT foot Age-related osteoporotic fracture of the right hip Noted on xray of the right hip/pelvis 10/09 s/p RIGHT hip hemiarthroplasty with Dr. Christian 10/13. EBL 75cc. Pain control: prn Tylenol and morphine -Added prn oxycodone 5mg, will dc morphine. Hopefully this far out will not need (did get dose 10/17, only tylenol available orally otherwise) Vit D level: 15.7, 2000 units daily ordered Resumed Eliquis BID (went into afib 10/11 w/ elevated rates as below, now s/p cardioversion 10/[address] Jackson) -Keeping K/mag replete (mag 1.9 on AM labs, k3.8) -Tele: remaining in NSR 10/19, rates controlled. Continues on flecainide 150mg BID, metoprolol 100mg daily. See below regarding Multaq, new 10/19 Lasix 40mg IV AM 10/19 x 1, place further on hold. -Will give 1gm IV magnesium to keep closer to 2, additional 40meq KCL to keep K replete w/ lasix use DC English catheter 10/19 if improvements with therapy. Monitor for any UTI sxs Venofer IV x 1, place PO on hold to prevent constipation Bowel regimen +daily BMs reported (AM 10/19). Will hold further miralax. Can continue senna/docusate. PT/OT evals, rehab recommended. -[facility] planned. CM following -- P2P for this afternoon to be completed (2) Fall: Plan: As above, planning for rehab at discharge (3) Hypoxia: Plan: Patient was reportedly hypoxic for EMS on arrival. No baseline oxygen needs 10/09: CT of the thoracic spine mentions mild pulmonary edema and small BL pleural effusions, lung exam is essentially clear Patient also mentions that she is often started on O2 while admitted and sleeping, likely has some component of EDGAR and/or obesity hypoventilation syndrome 10/10: CXR without signs of pneumonia, CTA without PE 10/15 CXR: Trace bilateral pleural effusion persist, atelectasis vs PNA --> Lasix 20mg BID ordered -> placed on hold 10/18 AM after "confusion reported" Completed 6 day course while inpatient last week 10/09 through 10/14 with unasyn and doxycycline Remains on 3L NC -- titrate to maintain sats Repeat CXR for 10/19 ordered, appearing congested on exam --> Lasix 40mg IV x 1 ordered for today and will monitor response/possible repeat dose for tomorrow Incentive spirometer encouraged C2V ordered for AM (4) Paroxysmal atrial fibrillation: Plan: Flipped to Afib evening of 10/11, rates 100-160s Discussed case with Dr. Bland, cardiology - increased flecainide to 150mg BID and continue IV Lopressor as BP allows Continues on metoprolol 100mg daily Eliquis resumed as above, s/p cardioversion 10/[address] Jackson. Rates controlled, in NSR since cardioversion --> per Dr Holman, starting Multaq 400mg BID for better ryhthm control -- continue to monitor on telemetry Keep K/mag replete (5) Anxiety: Plan: Continue Zoloft, Klonopin and prn ativan Family reporting worsening anxiety, requested psych consult zoloft increased to 100mg daily clonazepam 0.25mg q8h (ativan available prn) (6) Leukocytosis: Plan: Patient with WBC of 22 with neutrophil predominance of 19 on admission Febrile overnight 10/09 --> Unasyn and doxycycline - 10/09 PM to 10/14 for 6 days of treatment Blood cultures NGTD x 5 days (was given Zosyn in ER, then abx as outlined) Improved after antibiotic, slight increase on 10/14 after surgery but patient received dexamethasone. Remains wnl, afebrile. 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) Likely due to demand from falling and being on the ground for approximately 24 hours Patient denied chest pain -ECG shows possible RBBB with ST depression in the anterior leads 12/4 Echo: mild LVH, EF 60-65% NO CP REPORTED, REMAINING IN NSR Note hx thalassemia trait (explains chronic microcytosis) -- consider f/u outpt (8) (HFpEF) heart failure with preserved ejection fraction: Plan: Acute on chronic HFpEF Patient appeared dehydrated on admission despite mild pulmonary edema and small BL pleural effusions on thoracic spine CT - Given 40mg lasix IV in the ED , placed on IVF while NPO w/ surgery, also had afib w/ elevated rates and suspect that may have worsened CHF symptoms BNP 802. ECHO EF 60-65% Lasix 20mg IV BID ordered, placed on hold after AM dose 10/19 but will resume 40mg IV ONCE DAILY for now (on 40mg PO once daily as outpatient) Weight 85.5kg at present (86.3kg on admission) -- appears ~ dry weight 188lb in office Monitor weight/I&O Monitor w/ additional dose of lasix as above, will hold further diuretics for AM Also on lisinopril 20mg BID, not ordered --> placed orders to resume for this evening 10/19 Repeat CXR for today as above (9) Hypertension: Plan: Stable, hypotensive at times Will continue home metoprolol, mainly for afib Home amlodipine and lisinopril initially held in the setting of dehydration and rhabdomyolysis --> lisinopril resumed given CHF as above, monitor off amlodipine (10) Rhabdomyolysis: Plan: -Initial CK elevated at 1284 --> 743 -Improved - renal function and LFTs WNLs Plan Dispo: Continued inpatient stay [facility] prophy: T[facility] HandleyP for this afternoon, [facility] planned eventually at discharge Admission and Anticipated Discharge Date Admission Date: October 09, 2023 Subjective eval this morning, just finished working with therapy. Moving her bowels daily, soft. Will look at regimen/decrease. She does endorse first couple of days she had difficulty getting her bowels moving. Wanting to go to [facility]. Still on supplemental oxygen -- discussed additional dose of lasix for today. Remaining in NSR on monitor since cardioversion yesterday. Discussed w/ nursing and if improvement with therapy today will plan to remove english. Patient with blisters to distal aspect of dressing, nonpainful but about to rupture distal to dressing. Discussed will have orthopedics eval dressing to hip/possible topical abx vs other pending eval. Denies any fever/chills chest pain. Denies shortness of breath/cough, despite oxygen use. No abdominal pain/nausea. Will order dose of Venofer/place PO iron on hold. Questions/concerns addressed at present time. Physical Exam 2 Physical Exam: General: WN/WD, general pallor, just finished working with therapy, NAD, but fatigued appearing HEENT: head atraumatic, normocephalic, mmm, trachea midline Resp: diminished in the bases, faint exp wheezing posteriorly, no crackles/rales, on 3L NC CV: RRR, no significant m/r/g, trace 1+ pedal edema, calves nontender, pulses palpable MSK/Neuro: dressing to RIGHT hip intact, blistering present under dressing/distally, no surrounding cellulitis, no overt tenderness/drainage at present mild edema present sensation intact no focal deficits Psych: AOx3, cooperative with exam Results & Data Results & Data Vital Signs (Past 12 Hours) Vital Signs Temp Pulse Pulse Resp BP Pulse Ox O2 Del Method 10/19/23 07:35 36.9 C 67 18 130/67 92 Nasal Cannula 10/19/23 03:55 37.1 C 68 18 114/66 92 Nasal Cannula 10/18/23 23:18 37.4 C 75 20 115/64 92 Nasal Cannula 10/18/23 21:58 69 10/18/23 20:00 Nasal Cannula O2 Flow Rate 10/19/23 07:35 3 10/19/23 03:55 2 10/18/23 23:18 2 10/18/23 21:58 10/18/23 20:00 3 Laboratory Results 10/19/23 08:11 10/19/23 08:11 Diagnostic Findings Chest X-Ray 10/19/23 10:34 TWO VIEW CHEST CLINICAL HISTORY: Hypoxia. FINDINGS: AP and lateral chest radiographs are compared to study dated 10/15/2023 and correlated with chest CT dated 10/10/2023. The heart is enlarged noting atherosclerotic calcification of the thoracic aorta. There is pulmonary vascular congestion with evidence of interstitial edema. There are layering pleural effusions with dependent consolidation. There is no pneumothorax. The skeletal structures are osteopenic. The bony thorax appears intact. IMPRESSION: 1. Cardiomegaly with evidence of congestive failure and pulmonary edema. 2. Layering pleural effusions with dependent consolidation. ACT 112: Negative or not required by law. Electronically signed by: Néstor Escobar M.D. 10/19/2023 12:05 PM PG Care Time/CCT Total # of Minutes Spent Total Time Spent with Patient: Total time spent is greater than 50% in coordination of care (as documented) at patient's floor/unit and/or counseling patient: Coding Level of Care Code 04444 SUB INP/OBS CARE 3/50MIN Diagnoses Closed right hip fracture S72.001A Encounter type: initial encounter Fall W19.XXXA Hypoxia R09.02 Paroxysmal atrial fibrillation I48.0 Anxiety F41.9 Leukocytosis D72.829 Leukocytosis type: unspecified Troponin level elevated R79.89 (HFpEF) heart failure with preserved ejection fraction I50.30 Hypertension I10 Rhabdomyolysis M62.82 Encounter type: initial encounter (1) Closed right hip fracture Encounter type: initial encounter Qualified Code(s): S72.001A - Fracture of unspecified part of neck of right femur, initial encounter for closed fracture (6) Leukocytosis Leukocytosis type: unspecified Qualified Code(s): D72.829 - Elevated white blood cell count, unspecified (10) Rhabdomyolysis Encounter type: initial encounter
[2023-10-19 08:30] LABS: Hematocrit (blood only) 28.6 % (37.0-47.0); Hemoglobin 8.8 g/dl (12.0-16.0); Mean Corpuscular Hemoglobin 20.7 pg (25.0-34.0); Mean Corpuscular Hgb Conc 30.8 g/dL (32.0-36.0); Mean Corpuscular Volume 67.3 fL (80.0-100.0); Mean Platelet Volume 10.2 fL (9.4-12.4); Nucleated RBC # (auto) 0.03 K/uL (0.00-0.12); Nucleated RBC % (auto) 0.3 %; Platelet Count 306 K/uL (130-400); RDW Coefficient of Variation 14.6 % (11.5-14.5); RDW Standard Deviation 34.2 fL (36.4-46.3); Red Blood Count 4.25 M/uL (4.20-5.40); White Blood Count 9.78 K/ul (4.8-10.8)
[2023-10-19 08:49] LABS: BUN Creatinine Ratio 21.4 (10-20); Calcium 8.7 mg/dl (8.6-10.3); Est GFR (African American) 89.7 ml/min; Est GFR (Non-African American) 77.4 ml/min; Potassium 3.8 mmol/L (3.5-5.1)
[2023-10-19] MEDS: FERROUS SULFATE 325 MG TAB PO SCH (09:01)
[2023-10-19] MEDS: PANTOprazole 40 MG TAB PO SCH ×2 (09:01→20:29)
[2023-10-19] MEDS: FLECAINIDE ACETATE 100 MG TABLET PO SCH (09:01)
[2023-10-19] MEDS: MULTIVITAMIN TAB PO SCH (09:02)
[2023-10-19] MEDS: SERTRALINE HCL 100 MG TABLET PO SCH (09:02)
[2023-10-19] MEDS: METOPROLOL SUCC 50MG EXT REL TAB PO SCH (09:02)
[2023-10-19] MEDS: CHOLECALCIFEROL 1,000 UNITS 25 MCG TAB PO SCH (09:02)
[2023-10-19] MEDS: DOCUSATE SODIUM 100 MG CAP PO SCH ×2 (09:02→20:30)
[2023-10-19] MEDS: POLYETHYLENE (MIRALAX) 17 GM PACK PO SCH (09:03)
[2023-10-19] MEDS: clonazePAM 0.25 MG TAB PO SCH ×3 (09:05→20:28)
[2023-10-19] MEDS: oxyCODONE HCL IR 5 MG TAB (IMMEDIATE RELEASE) PO PRN ×2 (09:05→17:50)
--- NOTE | 2023-10-19 10:11 | Cardiology Progress Note ---
Date of Service October 19, 2023 Assessment & Plan (1) Paroxysmal atrial fibrillation: Plan: 1. Atrial fibrillation: Although she has had paroxysmal atrial fibrillation in the past it appeared more persistent now, which is part of the natural history of atrial fibrillation. Her flecainide may be becoming less effective, even at a dose of 150 mg twice a day. Her heart rate was fast during atrial fibrillation and rhythm control is probably a good idea. We may have to switch antiarrhythmic agents, she is in agreement with this. She does not have left ventricular dysfunction or wall motion abnormalities and we have no evidence that she is obstructive coronary artery disease. I would prefer to use a less toxic drug than amiodarone to start therefore I am going to try Multaq. She will be here several days awaiting placement so we can observe on telemetry. Admission and Anticipated Discharge Date Admission Date: October 09, 2023 Subjective Due to transient withholding of anticoagulant therapy a ANITHA was done prior to cardioversion yesterday, demonstrating no clot cardioversion was successfully performed. Her post cardioversion electrocardiogram shows sinus rhythm at 64 bpm with first-degree AV block (MA interval 262 ms) and an incomplete right bundle branch block pattern. The QT interval is normal. Today she is feeling well, she has no cardiovascular symptoms. Physical Exam Physical Exam: Constitutional: Alert, cooperative and in no distress. HEENT: Unremarkable Neck: No jugular venous distention, carotid pulses are normal and equal bilaterally without bruits. Pulmonary: Clear to auscultation bilaterally. Cardiac: Regular rhythm with no murmur, gallop or rub. Abdomen: Soft, nontender with normal bowel sounds. Extremities: No edema. Distal pulses intact. Neurologic: No focal findings. Skin: No rash, ecchymoses or petechiae. Results & Data Vital Signs (Past 12 Hours) Vital Signs Temp Pulse Pulse Resp BP Pulse Ox O2 Del Method 10/19/23 09:46 Nasal Cannula 10/19/23 09:36 68 10/19/23 07:35 36.9 C 67 18 130/67 92 Nasal Cannula 10/19/23 03:55 37.1 C 68 18 114/66 92 Nasal Cannula 10/18/23 23:18 37.4 C 75 20 115/64 92 Nasal Cannula O2 Flow Rate 10/19/23 09:46 3 10/19/23 09:36 12/13/23 07:35 3 10/19/23 03:55 2 10/18/23 23:18 2 Laboratory Results CBC 10/19/23 Range/Units 08:11 WBC 9.78 (4.8-10.8) K/ul RBC 4.25 (4.20-5.40) M/uL Hgb 8.8 L (12.0-16.0) g/dl Hct 28.6 L (37.0-47.0) % Plt Count 306 (130-400) K/uL Comprehensive Metabolic Panel 10/19/23 10/19/23 Range/Units 05:35 08:11 Sodium 139 (136-145) mmol/L Potassium 3.8 (3.5-5.1) mmol/L Chloride 101 (98-107) mmol/L Carbon Dioxide 34 H (21-32) mmol/L BUN 15 (6-23) mg/dl Creatinine 0.70 0.70 (0.6-1.2) mg/dl Glucose 97 (70-99(Fasting)) mg/dl Calcium 8.7 (8.6-10.3) mg/dl Intake and Output 10/18/23 10/19/23 10/19/23 22:59 06:59 14:59 Intake Total 100 / 440 100 / 440 Output Total 300 / 900 300 / 900 Balance -200 / -460 -200 / -460 Intake: Oral 100 / 440 100 / 440 Output: Urine Amount (Catheter) 300 / 900 300 / 900 Reardon/Indwelling 300 / 900 300 / 900 Other: Weight 85.5 kg Weight Measurement Method Built in [facility] Diagnostic Findings Telemetry: Sinus rhythm since cardioversion. PG Care Time/CCT Total # of Minutes Spent Total Time Spent with Patient: Total time spent is greater than 50% in coordination of care (as documented) at patient's floor/unit and/or counseling patient: Coding Level of Care Code 25922 SUB INP/OBS CARE 2/35MIN Diagnoses Paroxysmal atrial fibrillation I48.0
[2023-10-19] MEDS ORDERED: MAGNESIUM SULFATE / D5W 1 GM/100 ML BAG IV ONE (10:18)
[2023-10-19] MEDS ORDERED: POTASSIUM CHLORIDE CRTAB 20 MEQ TABCR PO STA (10:19)
[2023-10-19] MEDS ORDERED: FUROSEMIDE 40 MG/4 ML VIAL IV ONE (10:19)
[2023-10-19] MEDS ORDERED: IRON SUCROSE 300 MG in SODIUM CHLORIDE 0.9% 250 ML IV ONE (10:29)
[2023-10-19] MEDS: APIXABAN 5 MG TABLET PO SCH ×2 (10:37→20:28)
[2023-10-19] MEDS ORDERED: DRONEDARONE HCL 400 MG TAB PO SCH (11:45)
--- NOTE | 2023-10-19 12:07 | XRay Report ---
TWO VIEW CHEST CLINICAL HISTORY: Hypoxia. FINDINGS: AP and lateral chest radiographs are compared to study dated 10/15/2023 and correlated with chest CT dated 10/10/2023. The heart is enlarged noting atherosclerotic calcification of the thoracic aorta. There is pulmonary vascular congestion with evidence of interstitial edema. There are layering pleural effusions with dependent consolidation. There is no pneumothorax. The skeletal structures ar e osteopenic. The bony thorax appears intact. IMPRESSION: 1. Cardiomegaly with evidence of congestive failure and pulmonary edema. 2. Layering pleural effusions with dependent consolidation. ACT 112: Negative or not required by law. Electronically signed by: Néstor Escobar M.D. 10/19/2023 12:05 PM
[2023-10-19] MEDS: lisinopril 20 MG TAB PO SCH ×2 (20:28→20:34)
[2023-10-19] MEDS: SENNA 8.6 MG TAB PO SCH (20:29)
[2023-10-20 06:50] LABS: Basophils # (auto) 0.06 K/uL (0.00-0.20); Basophils % (auto) 0.6 %; Eosinophils # (auto) 0.43 K/uL (0.00-0.50); Eosinophils % (auto) 4.1 %; Hematocrit (blood only) 26.8 % (37.0-47.0); Hemoglobin 8.5 g/dl (12.0-16.0); Immature Granulocytes # (auto) 0.07 K/uL (0.01-0.20); Immature Granulocytes % (auto) 0.7 %; Lymphocytes # (auto) 2.18 K/uL (1.20-3.40); Lymphocytes % (auto) 20.8 %; Mean Corpuscular Hgb Conc 31.7 g/dL (32.0-36.0); Mean Corpuscular Volume 66.2 fL (80.0-100.0); Monocytes # (auto) 0.97 K/uL (0.11-0.59); Monocytes % (auto) 9.3 %; Neutrophils # (auto) 6.75 K/uL (1.40-6.50); Neutrophils % (auto) 64.5 %; Nucleated RBC # (auto) 0.04 K/uL (0.00-0.12); Nucleated RBC % (auto) 0.4 %; RDW Coefficient of Variation 15.1 % (11.5-14.5); RDW Standard Deviation 34.5 fL (36.4-46.3); Red Blood Count 4.05 M/uL (4.20-5.40); White Blood Count 10.46 K/ul (4.8-10.8)
[2023-10-20 07:13] LABS: Albumin Globulin Ratio 1.3 (0.9-2); Albumin Level 2.9 gm/dl (3.4-5.0); BUN Creatinine Ratio 20.7 (10-20); Bilirubin,Total 0.9 mg/dl (0.2-1.0); Calcium 8.5 mg/dl (8.6-10.3); Creatinine Clr Calc Pharmacy 72.5 ml/min; Est GFR (African American) 95.4 ml/min; Est GFR (Non-African American) 82.3 ml/min; Globulin 2.3 gm/dl (2.5-4.0); Magnesium 1.9 mg/dl (1.7-2.4); Potassium 4.1 mmol/L (3.5-5.1); Total Protein 5.2 gm/dl (6.0-8.3)
[2023-10-20 07:14] LABS: Mean Platelet Volume 11.1 fL (9.4-12.4); Platelet Count 290 K/uL (130-400)
[2023-10-20 07:27] LABS: Hypochromasia Present; Microcytosis Present; Ovalocytes 1+; Target Cells 1+; Tear Drop Cells 2+
[2023-10-20] MEDS ORDERED: FUROSEMIDE 40 MG/4 ML VIAL IV ONE ×2 (07:45→17:00)
--- NOTE | 2023-10-20 07:51 | Hospitalist Progress Note ---
Date of Service October 20, 2023 Assessment & Plan (1) Closed right hip fracture: Plan: Patient sustained a mechanical fall in the late morning on 10/08 while attempting to sit on a chair in her living room, was likely on ground for 24 hours before being found by her daughter -Only signs of trauma at this time are her right hip fracture and bruising over the dorsum of the left foot -Xray: Nondisplaced fracture at the base of fifth proximal phalanx LEFT foot Age-related osteoporotic fracture of the right hip Noted on xray of the right hip/pelvis 10/09 s/p RIGHT hip hemiarthroplasty with Dr. Christian 10/13. EBL 75cc. Pain control:Added prn oxycodone 5mg, will dc morphine. Hopefully this far out will not need (did get dose 10/17, only tylenol available orally otherwise) Vit D level 15.7 --2000 units PO, continue at dc Eliquis BID resumed (went into afib 10/11 w/ elevated rates as below, now s/p cardioversion 10/[address] Jackson) Tele: remaining in NSR 10/19, rates controlled. Continues onmetoprolol 100mg daily. See below regarding Multaq, new 10/19, dc flecanide Lasix 40mg IV AM 10/19 x 1, placed scheduled dosing on hold. Give 1gm IV mag to keep closer to 2/PO Kcl to keep K ~4 Additional 40mg IV x 1 for today (10/20), monitor response. Renal function stable/improved since resuming her lisinopril/additional Lasix. POssible additonal IV dose for tomorrow vs resuming home PO dosing DC Reardon catheter 10/19 if improvements with therapy. Monitor for any UTI sxs Venofer IV x 1 on 10/19, place PO on hold to prevent constipation Bowel regimen +daily BMs reported (AM 10/19). Will hold further miralax. Can continue senna/docusate. PT/OT evals - [facility] planned, hopefully tomorrow. (2) Fall: Plan: As above, planning for rehab at discharge (3) Hypoxia: Plan: Patient was reportedly hypoxic for EMS on arrival. No baseline oxygen needs 10/09: CT of the thoracic spine mentions mild pulmonary edema and small BL pleural effusions, lung exam is essentially clear Patient also mentions that she is often started on O2 while admitted and sleeping, likely has some component of EDGAR and/or obesity hypoventilation syndrome 10/10: CXR without signs of pneumonia, CTA without PE 10/15 CXR: Trace bilateral pleural effusion persist, atelectasis vs PNA --> Lasix 20mg BID ordered -> placed on hold 10/18 AM after "confusion reported" Completed 6 day course while inpatient last week 10/09 through 10/14 with unasyn and doxycycline Remained on 3L NC through 10/19 Repeat CXR for 10/19 ordered, appearing congested on exam --> Lasix 40mg IV x 1 C2V ordered for this morning w/ interval improvement in pulm edema/bilateral effusions. Compressive atelectasis from effusions (RN to provide incentive spirometer) Renal function improved w/ diuretics and additional 40mg IV ordered for 10/20 and will order additional dosing for this evening (4) Paroxysmal atrial fibrillation: Plan: Flipped to Afib evening of 10/11, rates 100-160s Discussed case with Dr. Bland, cardiology - increased flecainide to 150mg BID and continue IV Lopressor as BP allows Continues on metoprolol 100mg daily Eliquis resumed as above, s/p cardioversion 10/[address] Jackson. Rates controlled, in NSR since cardioversion --> per Dr Holman, starting Multaq 400mg BID for better rhythm control -- continue to monitor on telemetry overnight 10/20 Flecainide has been discontinued Keep K/mag replete (5) Anxiety: Plan: Continue Zoloft, Klonopin and prn ativan Family reporting worsening anxiety, requested psych consult zoloft increased to 100mg daily clonazepam 0.25mg q8h (ativan available prn) (6) Leukocytosis: Plan: Patient with WBC of 22 with neutrophil predominance of 19 on admission Febrile overnight 10/09 --> Unasyn and doxycycline - 10/09 PM to 10/14 for 6 days of treatment Blood cultures NGTD x 5 days (was given Zosyn in ER, then abx as outlined) Improved after antibiotic, slight increase on 10/14 after surgery but patient received dexamethasone. Remains wnl, afebrile. Borderline 10.4 w/ L shift. 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) Likely due to demand from falling and being on the ground for approximately 24 hours Patient denied chest pain -ECG shows possible RBBB with ST depression in the anterior leads / Echo: mild LVH, EF 60-65% NO CP REPORTED, REMAINING IN NSR Note hx thalassemia trait (explains chronic microcytosis) -- consider f/u outpt (8) (HFpEF) heart failure with preserved ejection fraction: Plan: Acute on chronic HFpEF Patient appeared dehydrated on admission despite mild pulmonary edema and small BL pleural effusions on thoracic spine CT - Given 40mg lasix IV in the ED , placed on IVF while NPO w/ surgery, also had afib w/ elevated rates and suspect that may have worsened CHF symptoms BNP 802. ECHO EF 60-65% Lasix 20mg IV BID ordered, placed on hold after AM dose 10/19 but ordered 40mg IV daily 10/19 and repeated dose for this morning 10/20 (on 40mg PO once daily as outpatient) Also on lisinopril 20mg BID, not ordered --> placed orders to resume for this evening 10/19 Will give additional dose 40mg IV lasix for PM 10/20 Monitor weight/I&O (9) Hypertension: Plan: Stable, hypotensive at times Will continue home metoprolol, mainly for afib Home amlodipine and lisinopril initially held in the setting of dehydration and rhabdomyolysis --> lisinopril resumed given CHF as above, monitor off amlodipine (10) Rhabdomyolysis: Plan: Initial CK elevated at 1284 --> 743 Improved - renal function and LFTs WNLs Plan Dispo: Continued inpatient stay VTE prophy: Eliquis Lasix IV for diuresis [facility] planned eventually at discharge, hopefully tomorrow Admission and Anticipated Discharge Date Admission Date: October 09, 2023 Supervising Physician Co-Signing Physician Notes The patient was not seen by me. The chart was reviewed. Case discussed with GIACOMO Hester. Agree with assessment and plan Subjective Eval this morning. Said someone from orthopedics was by and changed her dressing. Pain to hip controlled. Breathing stable, down to 2L (asking RN to recheck -- listed on RA this morning but never on room air). Additional titration as able w/ lasix ordered for today and possible additional dose IV tomorrow vs resuming usual PO dosing. Planning for [facility]. Physical Exam 2 Physical Exam: General: WN/WD, general pallor, just finished working with therapy, NAD, but fatigued appearing HEENT: head atraumatic, normocephalic, mmm, trachea midline Resp: diminished in the bases, faint exp wheezing posteriorly, no crackles/rales, on 3L NC CV: RRR, no significant m/r/g, trace-1+ pedal edema, calves nontender, pulses palpable MSK/Neuro: dressing to RIGHT hip intact (changed this morning), some serosanginous drainage noted from blister rupturing (dressing not removed), no surrounding cellulitis/warmth, does have some tenderness sensation intact no focal deficits Psych: AOx3, cooperative with exam Results & Data Results & Data Vital Signs (Past 12 Hours) Vital Signs Temp Pulse Pulse Resp BP Pulse Ox O2 Del Method 10/20/23 07:23 59 L 10/20/23 03:16 37.0 C 98 H 20 121/64 92 Nasal Cannula 10/20/23 00:19 36.8 C 68 18 105/64 92 Nasal Cannula 10/19/23 22:00 67 10/19/23 19:51 36.8 C 65 18 98/64 L 92 Nasal Cannula O2 Flow Rate 10/20/23 07:23 10/20/23 03:16 2 10/20/23 00:19 2 10/19/23 22:00 10/19/23 19:51 2 Laboratory Results 10/20/23 05:51 10/20/23 05:51 Diagnostic Findings Chest X-Ray 10/19/23 10:34 TWO VIEW CHEST CLINICAL HISTORY: Hypoxia. FINDINGS: AP and lateral chest radiographs are compared to study dated 10/15/2023 and correlated with chest CT dated 10/10/2023. The heart is enlarged noting atherosclerotic calcification of the thoracic aorta. There is pulmonary vascular congestion with evidence of interstitial edema. There are layering pleural effusions with dependent consolidation. There is no pneumothorax. The skeletal structures are osteopenic. The bony thorax appears intact. IMPRESSION: 1. Cardiomegaly with evidence of congestive failure and pulmonary edema. 2. Layering pleural effusions with dependent consolidation. ACT 112: Negative or not required by law. Electronically signed by: Néstor Escobar M.D. 10/19/2023 12:05 PM PG Care Time/CCT Total # of Minutes Spent Total Time Spent with Patient: Total time spent is greater than 50% in coordination of care (as documented) at patient's floor/unit and/or counseling patient: Coding Level of Care Code 43935 SUB INP/OBS CARE 350MIN Diagnoses Closed right hip fracture S72.001A Encounter type: initial encounter Fall W19.XXXA Hypoxia R09.02 Paroxysmal atrial fibrillation I48.0 Anxiety F41.9 Leukocytosis D72.829 Leukocytosis type: unspecified Troponin level elevated R79.89 (HFpEF) heart failure with preserved ejection fraction I50.30 Hypertension I10 Rhabdomyolysis M62.82 Encounter type: initial encounter (1) Closed right hip fracture Encounter type: initial encounter Qualified Code(s): S72.001A - Fracture of unspecified part of neck of right femur, initial encounter for closed fracture (6) Leukocytosis Leukocytosis type: unspecified Qualified Code(s): D72.829 - Elevated white blood cell count, unspecified (10) Rhabdomyolysis Encounter type: initial encounter
[2023-10-20] MEDS: PANTOprazole 40 MG TAB PO SCH ×2 (09:19→20:44)
[2023-10-20] MEDS: SERTRALINE HCL 100 MG TABLET PO SCH (09:19)
[2023-10-20] MEDS: DRONEDARONE HCL 400 MG TAB PO SCH ×2 (09:19→20:18)
[2023-10-20] MEDS: MULTIVITAMIN TAB PO SCH (09:19)
[2023-10-20] MEDS: CHOLECALCIFEROL 1,000 UNITS 25 MCG TAB PO SCH (09:19)
[2023-10-20] MEDS: METOPROLOL SUCC 50MG EXT REL TAB PO SCH (09:19)
[2023-10-20] MEDS: DOCUSATE SODIUM 100 MG CAP PO SCH (09:20)
[2023-10-20] MEDS: lisinopril 20 MG TAB PO SCH ×2 (09:20→20:18)
[2023-10-20] MEDS: APIXABAN 5 MG TABLET PO SCH ×2 (09:20→20:19)
[2023-10-20] MEDS: clonazePAM 0.25 MG TAB PO SCH ×3 (09:21→20:18)
--- NOTE | 2023-10-20 09:29 | XRay Report ---
XR chest 2V PA/lateral HISTORY: f/u pulmonary congestion/edema COMPARISON: Chest 10/19/2013. FINDINGS: No pneumothorax. The heart remains enlarged. Small bilateral pleural effusions and mild pul monary edema have improved. Bibasilar densities persist. The upper lung zones are clear. No acute fra ctures. IMPRESSION: 1. Interval improvement in the pulmonary edema and small bilateral pleural effusions. 2. Cardiomegaly, unchanged. 3. Bibasilar densities persist. This favors compressive atelectasis from the pleural effusions. ACT 112: Negative or not required by law. Electronically signed by: Markus Gongora M.D. 10/20/2023 9:28 AM
[2023-10-20] MEDS: ACETAMINOPHEN 500 MG TAB PO PRN ×2 (12:18→23:11)
--- NOTE | 2023-10-20 16:28 | Cardiology Progress Note ---
Date of Service October 20, 2023 Assessment & Plan (1) Paroxysmal atrial fibrillation: Plan 1. Atrial fibrillation: Although she has had paroxysmal atrial fibrillation in the past it appeared more persistent prior to and during this admission, which is part of the natural history of atrial fibrillation. Her flecainide may be becoming less effective, even at a dose of 150 mg twice a day. Her heart rate was fast during atrial fibrillation and rhythm control is probably a good idea. She does not have left ventricular dysfunction or wall motion abnormalities and we have no evidence that she has obstructive coronary artery disease. I would prefer to use a less toxic drug than amiodarone to start therefore I am going to try Multaq. She received her first dose this morning. Admission and Anticipated Discharge Date Admission Date: October 09, 2023 Subjective She is feeling well this morning, she is having no cardiovascular symptoms. She denies palpitations, lightheadedness or dizziness. She is to receive her first dose of Multaq this morning. Physical Exam Physical Exam: Constitutional: Alert, cooperative and in no distress. HEENT: Unremarkable Neck: No jugular venous distention, carotid pulses are normal and equal bilaterally without bruits. Pulmonary: Clear to auscultation bilaterally. Cardiac: Regular rhythm with no murmur, gallop or rub. Abdomen: Soft, nontender with normal bowel sounds. Extremities: No edema. Distal pulses intact. Neurologic: No focal findings. Skin: No rash, ecchymoses or petechiae. Results & Data Vital Signs (Past 12 Hours) Vital Signs Temp Pulse Pulse Resp BP Pulse Ox O2 Del Method 10/20/23 15:37 36.4 C L 59 L 16 101/50 L 92 Nasal Cannula 10/20/23 15:10 60 10/20/23 11:57 36.4 C L 67 18 94/58 L 93 Nasal Cannula 10/20/23 09:30 Nasal Cannula 10/20/23 08:06 36.4 C L 67 18 119/68 92 Room Air 10/20/23 07:23 59 L O2 Flow Rate 10/20/23 15:37 2 10/20/23 15:10 10/20/23 11:57 3 10/20/23 09:30 3 10/20/23 08:06 10/20/23 07:23 Laboratory Results Cardiac Enzymes 10/20/23 Range/Units 05:51 AST 23 (13-39) U/L CBC 10/20/23 Range/Units 05:51 WBC 10.46 (4.8-10.8) K/ul RBC 4.05 L (4.20-5.40) M/uL Hgb 8.5 L (12.0-16.0) g/dl Hct 26.8 L (37.0-47.0) % Plt Count 290 (130-400) K/uL Neut # (Auto) 6.75 H (1.40-6.50) K/uL Lymph # (Auto) 2.18 (1.20-3.40) K/uL Wilkes # (Auto) 0.97 H (0.11-0.59) K/uL Eos # (Auto) 0.43 (0.00-0.50) K/uL Baso # (Auto) 0.06 (0.00-0.20) K/uL Comprehensive Metabolic Panel 10/20/23 Range/Units 05:51 Sodium 137 (136-145) mmol/L Potassium 4.1 (3.5-5.1) mmol/L Chloride 101 (98-107) mmol/L Carbon Dioxide 32 (21-32) mmol/L BUN 12 (6-23) mg/dl Creatinine 0.58 L (0.6-1.2) mg/dl Glucose 89 (70-99(Fasting)) mg/dl Calcium 8.5 L (8.6-10.3) mg/dl AST 23 (13-39) U/L ALT 18 (7-52) U/L Alkaline Phosphatase 78 (34-104) U/L Total Protein 5.2 L (6.0-8.3) gm/dl Albumin 2.9 L (3.4-5.0) gm/dl Intake and Output 10/20/23 10/20/23 10/20/23 06:59 14:59 22:59 Intake Total 120 / 945 360 / 360 Output Total 2 / 2 Balance 120 / 245 358 / 358 Intake: Oral 120 / 580 360 / 360 Output: # Bowel Movements 2 / 2 Other: # Unmeasured Voids 1 2 Weight 85.7 kg Weight Measurement Method Built in [facility] Diagnostic Findings Telemetry: Sinus rhythm and sinus bradycardia, no atrial fibrillation since ca rdioversion. PG Care Time/CCT Total # of Minutes Spent Total Time Spent with Patient: Total time spent is greater than 50% in coordination of care (as documented) at patient's floor/unit and/or counseling patient: Coding Level of Care Code 31314 SUB INP/OBS CARE 235MIN Diagnoses Paroxysmal atrial fibrillation I48.0
[2023-10-20] MEDS: ONDANSETRON INJ 2 MG/ML 2 ML VIAL IV PRN (23:12)
[2023-10-21 06:20] LABS: Basophils # (auto) 0.05 K/uL (0.00-0.20); Basophils % (auto) 0.5 %; Eosinophils # (auto) 0.48 K/uL (0.00-0.50); Eosinophils % (auto) 4.4 %; Hematocrit (blood only) 25.6 % (37.0-47.0); Immature Granulocytes # (auto) 0.06 K/uL (0.01-0.20); Immature Granulocytes % (auto) 0.6 %; Lymphocytes # (auto) 1.81 K/uL (1.20-3.40); Lymphocytes % (auto) 16.6 %; Mean Corpuscular Hemoglobin 20.7 pg (25.0-34.0); Mean Corpuscular Hgb Conc 31.3 g/dL (32.0-36.0); Mean Corpuscular Volume 66.1 fL (80.0-100.0); Monocytes # (auto) 0.94 K/uL (0.11-0.59); Monocytes % (auto) 8.6 %; Neutrophils # (auto) 7.55 K/uL (1.40-6.50); Neutrophils % (auto) 69.3 %; Nucleated RBC # (auto) 0.03 K/uL (0.00-0.12); Nucleated RBC % (auto) 0.3 %; RDW Standard Deviation 34.4 fL (36.4-46.3); Red Blood Count 3.87 M/uL (4.20-5.40); White Blood Count 10.89 K/ul (4.8-10.8)
[2023-10-21 06:41] LABS: Mean Platelet Volume 10.2 fL (9.4-12.4); Platelet Count 323 K/uL (130-400)
[2023-10-21 06:44] LABS: Albumin Globulin Ratio 1.3 (0.9-2); Albumin Level 2.9 gm/dl (3.4-5.0); BUN Creatinine Ratio 16.2 (10-20); Calcium 8.6 mg/dl (8.6-10.3); Creatinine Clr Calc Pharmacy 56.6 ml/min; Est GFR (African American) 83.8 ml/min; Est GFR (Non-African American) 72.3 ml/min; Globulin 2.2 gm/dl (2.5-4.0); Magnesium 1.8 mg/dl (1.7-2.4); Potassium 3.6 mmol/L (3.5-5.1); Total Protein 5.1 gm/dl (6.0-8.3)
[2023-10-21 06:59] LABS: Ovalocytes 1+; Polychromasia 1+; Schistocytes 1+; Tear Drop Cells 1+
--- NOTE | 2023-10-21 07:44 | Hospitalist Progress Note ---
Date of Service October 21, 2023 Assessment & Plan (1) Closed right hip fracture: Plan: Patient sustained a mechanical fall in the late morning on 10/08 while attempting to sit on a chair in her living room, was likely on ground for 24 hours before being found by her daughter -Only signs of trauma at this time are her right hip fracture and bruising over the dorsum of the left foot -Xray: Nondisplaced fracture at the base of fifth proximal phalanx LEFT foot Age-related osteoporotic fracture of the right hip Noted on xray of the right hip/pelvis 10/09 s/p RIGHT hip hemiarthroplasty with Dr. Christian 10/13. EBL 75cc. Pain control/antiemetics prn: Tylenol, oxycodone Vit D level 15.7 --2000 units PO, continue at dc Eliquis BID resumed (went into afib 10/11 w/ elevated rates as below, now s/p cardioversion 10/[address] Jackson) English dc'd 10/19 -- did obtain repeat UA given leukocytosis/english catheter length -- UA+leuk esterase, >30 WBC, 10-20 epi, 4+ bacteria Placing on Ceftriaxone IV daily, f/u urine cxs. Continued daily bowel movements, placed laxatives/softeners on hold for now. CXR w/ continued congestion, IV diuretics as outlined below/monitor I&O/weights/response. PT/OT evals, rehab at [facility] planned. No bed today but hopefully stable for dc over the weekend (2) (HFpEF) heart failure with preserved ejection fraction: Plan: Acute on chronic HFpEF Patient appeared dehydrated on admission despite mild pulmonary edema and small BL pleural effusions on thoracic spine CT Given 40mg lasix IV in the ED , placed on IVF while NPO w/ surgery, also had afib w/ elevated rates and suspect that may have worsened CHF symptoms BNP 802. ECHO EF 60-65% Repeat CXR 10/19 given continued O2 requirements/weight gain -- noting was given 20mg IV lasix x 2 doses (then placed on hold given hypotension/confusion) --> Imaging w/ cardiomegaly w/ congestive failure/pulmonary edema and layering effusions w/ dependent consolidation Lasix 40mg IV on 10/19, repeated 40mg IV x 2 doses 10/20 for continued congestion/O2 use and given 40mg IV this morning. CXR w/ increased effusions/pulm edema and increased lasix to 80mg IV BID for now Monitor weight/I&O (asked RN to utilize purewick while in bed for better output measurement) Supplemental O2 to maintain sats, titrate as able (3) UTI (urinary tract infection): Plan: suspect 2nd to catheter associated UTI given length of english placement, since removed UA obtained to today --> appears infected Empiric abx w/ IV ceftriaxone, monitor final cx/sensitivities (4) Hypoxia: Plan: Reportedly hypoxic on arrival. CXR w/o acute finding however did note subsegmental atelectasis and chronic interstitial thickening. Did get IV lasix in ER, but placed on IVF as above CTA on 10/10 w/o evidence for PE but noted atelectasis and trace pleural effusions Completed 6 day course while inpatient last week 10/09 through 10/14 with unasyn and doxycycline ABOVE, suspect acute on chronic CHF exacerbation with preserved ejection fraction (5) Paroxysmal atrial fibrillation: Plan: Flipped to Afib evening of 10/11, rates 100-160s Discussed case with Dr. Bland, cardiology - increased flecainide to 150mg BID and continue IV Lopressor as BP allows Continues on metoprolol 100mg daily Eliquis resumed as above, s/p cardioversion 10/[address] Jackson. Rates controlled, in NSR since cardioversion --> per Dr Holman, starting Multaq 400mg BID for better rhythm control Flecainide has been discontinued Keep K/mag replete -- scheduled 20meq kcl TID while on lasix for volume overload (6) Anxiety: Plan: Continue Zoloft, Klonopin and prn ativan Family reporting worsening anxiety, requested psych consult zoloft increased to 100mg daily clonazepam 0.25mg q8h (ativan available prn) mood stable at present (7) Leukocytosis: Plan: Patient with WBC of 22 with neutrophil predominance of 19 on admission Febrile overnight 10/09 --> Unasyn and doxycycline - 12/ PM to 10/14 for 6 days of treatment Blood cultures NGTD x 5 days (was given Zosyn in ER, then abx as outlined) Improved after antibiotic, slight increase on 10/14 after surgery but patient received dexamethasone. Remains wnl, afebrile. Borderline 10.4 w/ L shift and NOW ELEVATED, suspected 2nd to CAUTI as above placed for surgery (local blisters at site of dressing to RIGHT hip== no evidence for cellulitis at present but will monitor) CBC in AM (8) Troponin level elevated: Plan: Demand ischemia Initial high sen trop elevated at 157 ---> 209 on 2 hour repeat, continued to downtrend, 117.2--> 90.8-- > 79.1 -Initial CK level elevated at 1284 --> 743 (mild rhabdo, was down ~24 hours prior to being found [employer]) Likely due to demand from falling and being on the ground for approximately 24 hours Patient denied chest pain -ECG showed possible RBBB with ST depression in the anterior leads 12/4 Echo: mild LVH, EF 60-65% NO CP REPORTED, REMAINING IN NSR Note hx thalassemia trait (explains chronic microcytosis) -- consider f/u outpt (9) Hypertension: Plan: Stable, hypotensive at times Will continue home metoprolol, mainly for afib Home amlodipine and lisinopril initially held in the setting of dehydration and rhabdomyolysis --> lisinopril resumed given CHF as above, monitor off amlodipine w increased diuretics (10) Rhabdomyolysis: Plan: Initial CK elevated at 1284 --> 743 Improved - renal function and LFTs WNLs (11) Iron (Fe) deficiency anemia: Plan: low iron, thalassemia trait. will resume PO supplementation suspect hgb dilutional from overload, no bleeding reported. monitor cbc in am (12) Major depressive disorder, recurrent, mild: Plan: as above, mood currently stable (13) JOSTIN (generalized anxiety disorder): (14) Pulmonary edema: Plan: 2nd to diuretics held on admission/IVF while NPO, suspect worsened w/ elevated HRs/electrolyte deficiencies Lasix IV as outlined, increased for today and will monitor response CXR in AM (15) Fall: Plan: As above, planning for rehab at discharge Plan Dispo: Continued inpatient stay VTE prophy: Eliquis Lasix IV for diuresis, IV abx for UTI [facility] planned eventually at discharge, hopefully tomorrow vs Tuesday Updated daughter on phone 10/21 Admission and Anticipated Discharge Date Admission Date: October 09, 2023 Supervising Physician Co-Signing Physician Notes The patient was not seen by me. The chart was reviewed. Case discussed with GIACOMO Hester. Agree with assessment and plan Subjective Eval this morning, doing well. On bedpan, formed stool . No abdominal pain. Pain to hip controlled. No fever/chills. Additional lasix for pulm congestion , now on room air and reports breathing stable. No cough/sputum production. TO go to [facility] but no bed today and hopefully will be able to take her tomorrow. Questions/concerns addressed at this time -- patient wanting to update daughter today. UA to be repeated. Avoiding replacement of catheter. Physical Exam 2 Physical Exam: General: WN/WD, general pallor, sitting on toilet having a bowel movement, NAD HEENT: head atraumatic, normocephalic, mmm, trachea midline Resp: diminished in the bases with associated crackles, faint exp wheezing posteriorly, now on room air CV: RRR, no significant m/r/g, trace-1+ pedal edema, calves nontender, pulses palpable MSK/Neuro: dressing to RIGHT hip intact - some serosanguineous drainage noted, no surrounding cellulitis/warmth, does have some tenderness sensation intact no focal deficits Psych: AOx3, cooperative with exam Results & Data Results & Data Vital Signs (Past 12 Hours) Vital Signs Temp Pulse Pulse Resp BP Pulse Ox O2 Del Method 10/21/23 07:17 65 10/21/23 02:48 36.8 C 63 16 126/68 91 Nasal Cannula 10/20/23 22:37 36.8 C 70 18 110/62 90 Nasal Cannula 10/20/23 21:57 69 10/20/23 19:53 Nasal Cannula 10/20/23 19:47 36.7 C 67 16 108/62 93 Nasal Cannula O2 Flow Rate 10/21/23 07:17 10/21/23 02:48 2 10/20/23 22:37 2 10/20/23 21:57 10/20/23 19:53 2 10/20/23 19:47 2 Laboratory Results 10/21/23 05:40 10/21/23 05:40 Diagnostic Findings Chest X-Ray 10/21/23 07:00 XR chest 1V portable HISTORY: 88 years-old Female CHF, pulm edema f/u acute shortness of breath with pulmonary edema COMPARISON: 10/20/2023 TECHNIQUE: AP view of the chest FINDINGS: Cardiac silhouette is enlarged. Pulmonary vascular congestion with progressive interstitial coarsening. Small pleural effusions have increased in size with progressive bibasilar opacities. No pneumothorax. Bones appear grossly intact. IMPRESSION: 1. Cardiomegaly with worsening pulmonary edema. 2. Increased size of the pleural effusions with mildly progressed bibasilar opacities. ACT 112: Negative or not required by law. The above report was generated using voice recognition software. It may contain grammatical, syntax or spelling errors. Electronically signed by: Wes Gallagher M.D. 10/21/2023 9:41 AM PG Care Time/CCT Total # of Minutes Spent Total Time Spent with Patient: Total time spent is greater than 50% in coordination of care (as documented) at patient's floor/unit and/or counseling patient: Coding Level of Care Code 31198 SUB INP/OBS CARE 3/50MIN Diagnoses Closed right hip fracture S72.001A Encounter type: initial encounter (HFpEF) heart failure with preserved ejection fraction I50.30 UTI (urinary tract infection) N39.0 Hypoxia R09.02 Paroxysmal atrial fibrillation I48.0 Anxiety F41.9 Leukocytosis D72.829 Leukocytosis type: unspecified Troponin level elevated R79.89 Hypertension I10 Rhabdomyolysis M62.82 Encounter type: initial encounter Iron (Fe) deficiency anemia D50.9 Major depressive disorder, recurrent, mild F33.0 JOSTIN (generalized anxiety disorder) F41.1 Pulmonary edema J81.1 Fall W19.XXXA (1) Closed right hip fracture Encounter type: initial encounter Qualified Code(s): S72.001A - Fracture of unspecified part of neck of right femur, initial encounter for closed fracture (7) Leukocytosis Leukocytosis type: unspecified Qualified Code(s): D72.829 - Elevated white blood cell count, unspecified (10) Rhabdomyolysis Encounter type: initial encounter
[2023-10-21] MEDS ORDERED: POTASSIUM CHLORIDE CRTAB 20 MEQ TABCR PO STA (07:45)
[2023-10-21] MEDS ORDERED: FUROSEMIDE 40 MG/4 ML VIAL IV ONE (07:45)
[2023-10-21] MEDS: lisinopril 20 MG TAB PO SCH ×2 (09:05→20:29)
[2023-10-21] MEDS: APIXABAN 5 MG TABLET PO SCH ×2 (09:05→20:30)
[2023-10-21] MEDS: PANTOprazole 40 MG TAB PO SCH ×2 (09:05→20:29)
[2023-10-21] MEDS: DRONEDARONE HCL 400 MG TAB PO SCH ×2 (09:05→20:29)
[2023-10-21] MEDS: clonazePAM 0.25 MG TAB PO SCH ×3 (09:05→20:28)
[2023-10-21] MEDS: CHOLECALCIFEROL 1,000 UNITS 25 MCG TAB PO SCH (09:06)
[2023-10-21] MEDS: SERTRALINE HCL 100 MG TABLET PO SCH (09:06)
[2023-10-21] MEDS: METOPROLOL SUCC 50MG EXT REL TAB PO SCH (09:06)
[2023-10-21] MEDS: MULTIVITAMIN TAB PO SCH (09:06)
--- NOTE | 2023-10-21 09:42 | XRay Report ---
XR chest 1V portable HISTORY: 88 years-old Female CHF, pulm edema f/u acute shortness of breath with pulmonary edema COMPARISON: 10/20/2023 TECHNIQUE: AP view of the chest FINDINGS: Cardiac silhouette is enlarged. Pulmonary vascular congestion with progressive interstitial coarsenin g. Small pleural effusions have increased in size with progressive bibasilar opacities. No pneumothor ax. Bones appear grossly intact. IMPRESSION: 1. Cardiomegaly with worsening pulmonary edema. 2. Increased size of the pleural effusions with mildly progressed bibasilar opacities. ACT 112: Negative or not required by law. The above report was generated using voice recognition software. It may contain grammatical, syntax o r spelling errors. Electronically signed by: Wes Gallagher M.D. 10/21/2023 9:41 AM
[2023-10-21 11:32] LABS: Appearance Urine Turbid (Clear); Bacteria Urine Automated 4+ (Negative); Bilirubin Urine Negative (Negative); Blood Urine 1+ (Negative); Color Urine Yellow; Glucose Urine UA Negative (Negative); Ketones Urine Negative (Negative); Leukocyte Esterase Urine 3+ (Negative); Nitrite Urine Negative (Negative); Protein Urine Negative (Negative); RBC Urine Automated 0-4 /hpf (0-4); Specific Gravity Urine 1.014 (1.000-1.030); Urobilinogen Urine Negative (Negative); WBC Urine Automated >30 /hpf (0-5); pH Urine 6.5 (4.5-7.5)
[2023-10-21] MEDS: FUROSEMIDE 40 MG/4 ML VIAL IV SCH ×2 (11:37→17:41)
[2023-10-21] MEDS ORDERED: cefTRIAXone SODIUM 1,000 MG in DEXTROSE 5 % MINI-B 50 ML IV SCH (12:00)
[2023-10-21] MEDS: cefTRIAXone SODIUM 2,000 MG in DEXTROSE 5 % MINI-B 50 ML IV SCH (13:03)
[2023-10-21] MEDS: POTASSIUM CHLORIDE CRTAB 20 MEQ TABCR PO SCH ×2 (13:03→20:29)
[2023-10-22 06:15] LABS: Basophils # (auto) 0.07 K/uL (0.00-0.20); Basophils % (auto) 0.6 %; Eosinophils # (auto) 0.41 K/uL (0.00-0.50); Eosinophils % (auto) 3.5 %; Hematocrit (blood only) 27.9 % (37.0-47.0); Hemoglobin 8.4 g/dl (12.0-16.0); Immature Granulocytes # (auto) 0.09 K/uL (0.01-0.20); Immature Granulocytes % (auto) 0.8 %; Lymphocytes % (auto) 16.3 %; Mean Corpuscular Hemoglobin 20.3 pg (25.0-34.0); Mean Corpuscular Hgb Conc 30.1 g/dL (32.0-36.0); Mean Corpuscular Volume 67.4 fL (80.0-100.0); Monocytes # (auto) 1.04 K/uL (0.11-0.59); Monocytes % (auto) 8.9 %; Neutrophils # (auto) 8.14 K/uL (1.40-6.50); Neutrophils % (auto) 69.9 %; Nucleated RBC # (auto) 0.04 K/uL (0.00-0.12); Nucleated RBC % (auto) 0.3 %; RDW Coefficient of Variation 15.3 % (11.5-14.5); RDW Standard Deviation 34.5 fL (36.4-46.3); Red Blood Count 4.14 M/uL (4.20-5.40); White Blood Count 11.65 K/ul (4.8-10.8)
[2023-10-22 06:19] LABS: Mean Platelet Volume 10.1 fL (9.4-12.4); Platelet Count 350 K/uL (130-400)
[2023-10-22 06:41] LABS: Albumin Globulin Ratio 1.3 (0.9-2); Albumin Level 3.1 gm/dl (3.4-5.0); BUN Creatinine Ratio 14.8 (10-20); Calcium 8.8 mg/dl (8.6-10.3); Creatinine Clr Calc Pharmacy 51.4 ml/min; Est GFR (African American) 75.2 ml/min; Est GFR (Non-African American) 64.8 ml/min; Globulin 2.3 gm/dl (2.5-4.0); Magnesium 1.8 mg/dl (1.7-2.4); Potassium 3.8 mmol/L (3.5-5.1); Total Protein 5.4 gm/dl (6.0-8.3)
[2023-10-22 07:16] LABS: Hypochromasia Present; Ovalocytes 1+; Polychromasia 1+; Target Cells 1+; Tear Drop Cells 1+
--- NOTE | 2023-10-22 07:50 | XRay Report ---
SINGLE VIEW CHEST CLINICAL HISTORY: Follow-up congestive heart failure. FINDINGS: An AP, portable, upright chest radiograph is compared to study dated 10/21/2023 and correla beatriz with chest CT dated 10/10/2023. The heart is enlarged noting atherosclerotic calcification of the thoracic aorta. There is mild pulmonary vascular congestion. This has improved from previous. There a re small pleural effusions, left larger than right with dependent consolidation. There is no pneumoth orax. The skeletal structures are osteopenic. The bony thorax is grossly intact. IMPRESSION: 1. Cardiomegaly with mild pulmonary vascular congestion. This has improved from previous. 2. Left larger than right pleural effusions with dependent consolidation. ACT 112: Negative or not required by law. Electronically signed by: Néstor Escobar M.D. 10/22/2023 7:48 AM
--- NOTE | 2023-10-22 07:57 | Hospitalist Progress Note ---
Date of Service October 22, 2023 Assessment & Plan (1) Closed right hip fracture: Plan: Patient sustained a mechanical fall in the late morning on 10/08 while attempting to sit on a chair in her living room, was likely on ground for 24 hours before being found by her daughter -Only signs of trauma at this time are her right hip fracture and bruising over the dorsum of the left foot -Xray: Nondisplaced fracture at the base of fifth proximal phalanx LEFT foot Age-related osteoporotic fracture of the right hip Noted on xray of the right hip/pelvis 10/09 s/p RIGHT hip hemiarthroplasty with Dr. Christian 10/13. EBL 75cc. Pain control/antiemetics prn: Tylenol, oxycodone Vit D level 15.7 --2000 units PO, continue at dc Eliquis BID resumed (went into afib 10/11 w/ elevated rates as below, now s/p cardioversion 10/[address] Jackson) English dc'd 10/19 -- did obtain repeat UA given leukocytosis/english catheter length -- UA+leuk esterase, >30 WBC, 10-20 epi, 4+ bacteria Placing on Ceftriaxone IV daily, f/u urine cxs. Continued daily bowel movements, placed laxatives/softeners on hold for now. PT/OT tara, rehab at [facility] planned. No bed today but hopefully stable for dc over the weekend CXR w/ continued congestion, IV diuretics as outlined below/monitor I&O/weights/response. ?worsened w/ multaq for her rhythm control. Messaged cardiology of increased diuretic needs (2) (HFpEF) heart failure with preserved ejection fraction: Plan: Acute on chronic HFpEF Patient appeared dehydrated on admission despite mild pulmonary edema and small BL pleural effusions on thoracic spine CT Given 40mg lasix IV in the ED , placed on IVF while NPO w/ surgery, also had afib w/ elevated rates and suspect that may have worsened CHF symptoms BNP 802. ECHO EF 60-65% Repeat CXR 10/19 given continued O2 requirements/weight gain -- noting was given 20mg IV lasix x 2 doses (then placed on hold given hypotension/confusion) --> Imaging w/ cardiomegaly w/ congestive failure/pulmonary edema and layering effusions w/ dependent consolidation Lasix 40mg IV on 10/19, Repeated 40mg IV x 2 doses 10/20 for continued congestion/O2 use and CXR w/ increased effusions/pulm edema and increased lasix to 80mg IV BID. BNP decreased to 300s on repeat CXR w/ IMPROVEMENT today, however still congested/edema/effusions Fluid restriction 1800ml daily Monitor weight/I&O (asked RN to utilize purewick while in bed for better output measurement however not able to obtain accurate I&O) Supplemental O2 to maintain sats, titrate as able Will obtain overnight pulse ox tonight given daughter reporting every time inpatient she requires o2 at night. ?underlying EDGAR (3) UTI (urinary tract infection): Plan: suspect 2nd to catheter for surgery, removed as above however concerns w/ leukocytosis/length of catheter placement and repeat UA obtained Urine cx w/ gram negative bacilli Placed on ceftriaxone, f/u urine cxs (4) Hypoxia: Plan: Reportedly hypoxic on arrival. CXR w/o acute finding however did note subsegmental atelectasis and chronic interstitial thickening. Did get IV lasix in ER, but placed on IVF as above CTA on 10/10 w/o evidence for PE but noted atelectasis and trace pleural effusions Completed 6 day course while inpatient last week 10/09 through 10/14 with unasyn and doxycycline ABOVE, suspect acute on chronic CHF exacerbation with preserved ejection fraction and diuretics as outlined (5) Paroxysmal atrial fibrillation: Plan: Flipped to Afib evening of 10/11, rates 100-160s Discussed case with Dr. Bland, cardiology - increased flecainide to 150mg BID and continue IV Lopressor as BP allows Continues on metoprolol 100mg daily Eliquis resumed as above, s/p cardioversion 10/[address] Jackson. Rates controlled, in NSR since cardioversion --> per Dr Holman, starting Multaq 400mg BID for better rhythm control Flecainide has been discontinued Keep K/mag replete -- scheduled 20meq kcl TID while on lasix for volume overload to prevent hypokalemia (6) Anxiety: Plan: CONCERT SINGER Zoloft, Klonopin and prn ativan Family reported worsening anxiety, requested psych consult zoloft increased to 100mg daily clonazepam 0.25mg q8h (ativan available prn) mood stable at present (7) Leukocytosis: Plan: Patient with WBC of 22 with neutrophil predominance of 19 on admission Febrile overnight 10/09 --> Unasyn and doxycycline - 12/ PM to 10/14 for 6 days of treatment Blood cultures NGTD x 5 days (was given Zosyn in ER, then abx as outlined) Improved after antibiotic, slight increase on 10/14 after surgery but patient received dexamethasone. Remains wnl, afebrile. Borderline 10.4 w/ L shift and NOW ELEVATED 10/21, suspected 2nd to CAUTI as above placed for surgery (local blisters at site of dressing to RIGHT hip== no evidence for cellulitis at present but will monitor) WBC still elevated, ?from pulm edema congestion. Has been AFBRILE CBC in AM (8) Troponin level elevated: Plan: Demand ischemia Initial high sen trop elevated at 157 ---> 209 on 2 hour repeat, continued to downtrend, 117.2--> 90.8-- > 79.1 -Initial CK level elevated at 1284 --> 743 (mild rhabdo, was down ~24 hours prior to being found CONCERT SINGER) Likely due to demand from falling and being on the ground for approximately 24 hours Patient denied chest pain -ECG showed possible RBBB with ST depression in the anterior leads 10/10 Echo: mild LVH, EF 60-65% NO CP REPORTED, REMAINING IN NSR Note hx thalassemia trait (explains chronic microcytosis) -- consider f/u outpt (9) Hypertension: Plan: Stable, hypotensive at times Will continue home metoprolol, mainly for afib Home amlodipine and lisinopril initially held in the setting of dehydration and rhabdomyolysis --> lisinopril resumed given CHF as above, monitor off amlodipine w increased diuretics (10) Rhabdomyolysis: Plan: Initial CK elevated at 1284 --> 743 Improved - renal function and LFTs WNLs (11) Iron (Fe) deficiency anemia: Plan: low iron, thalassemia trait. will resume PO supplementation suspect hgb dilutional from overload, no bleeding reported. monitor cbc in am -- improved w/ diuretics for volume overload and will monitor (12) Major depressive disorder, recurrent, mild: Plan: as above, mood currently stable (13) JOSTIN (generalized anxiety disorder): Plan: mood stable at present (14) Pulmonary edema: Plan: 2nd to diuretics held on admission/IVF while NPO, suspect worsened w/ elevated HRs/electrolyte deficiencies Lasix IV as outlined, increased 10/21 and stable renal function w/ improvement in CXR and will continue current dose/monitor response (15) Fall: Plan: As above, planning for rehab at discharge at [facility] once stabilized w/ CHF and UTI cx finalized for PO abx therapy Plan Dispo: Continued inpatient stay VTE prophy: Eliquis Lasix IV for diuresis, IV abx for UTI [facility] planned eventually at discharge, hopefully tomorrow vs Tuesday Updated daughter on phone 10/22 Admission and Anticipated Discharge Date Admission Date: October 09, 2023 Supervising Physician Co-Signing Physician Notes The patient was not seen by me. The chart was reviewed. Case discussed with GIACOMO Hester. Agree with assessment and plan Subjective Eval this morning, sitting up in bed eating breakfast. She notes she did feel a little confused yesterday like she was in a play/dream but she realized she couldn't walk and it wasn't a dream. Discussed UTI likely from catheter placement as well as CHF and response to diuretics. Discussed continued inpatient stay/will update daughter. Denies significant shortness of breath - CXR improving. Discussed having O2 titrated and possible overnight pulse ox to see about untreated sleep apnea underlying as well. Reports pain controlled. No CP/SOB. No cough/sputum production. No nausea/vomiting. Moving her bowels. Questions/concerns addressed at this time. Physical Exam 2 Physical Exam: General: WN/WD, general pallor improved, sitting up in bed, appearing a little better today, NAD HEENT: head atraumatic, normocephalic, mmm, trachea midline, +JVD Resp: diminished in the bases with associated crackles (Improving), no further wheezing, on 2L NC 96% (asked RN to titrate, no hypoxia reported) CV: RRR, no significant m/r/g, trace-1+ pedal edema, calves nontender, pulses palpable MSK/Neuro: dressing to RIGHT hip intact/changed, dry at present time without surrounding cellulitis/warmth, decreased swelling sensation intact no focal deficits small ulceration from prior blister, nontender Psych: AOx3, cooperative with exam Results & Data Results & Data Vital Signs (Past 12 Hours) Vital Signs Temp Pulse Pulse Resp BP Pulse Ox O2 Del Method 10/22/23 07:08 69 10/22/23 04:07 37.1 C 68 18 118/63 93 Nasal Cannula 10/21/23 23:22 37.1 C 67 20 111/54 L 92 Nasal Cannula 10/21/23 21:58 89 O2 Flow Rate 10/22/23 07:08 10/22/23 04:07 2 10/21/23 23:22 2 10/21/23 21:58 Laboratory Results 10/22/23 05:53 10/22/23 05:53 UA turbid, 1+ blood, 3+ leuk esterase, >30 WBC, 10-20 epi, 4+ bacteria Diagnostic Findings Chest X-Ray 10/22/23 07:00 SINGLE VIEW CHEST CLINICAL HISTORY: Follow-up congestive heart failure. FINDINGS: An AP, portable, upright chest radiograph is compared to study dated 10/21/2023 and correlated with chest CT dated 10/10/2023. The heart is enlarged noting atherosclerotic calcification of the thoracic aorta. There is mild pulmonary vascular congestion. This has improved from previous. There are small pleural effusions, left larger than right with dependent consolidation. There is no pneumothorax. The skeletal structures are osteopenic. The bony thorax is grossly intact. IMPRESSION: 1. Cardiomegaly with mild pulmonary vascular congestion. This has improved from previous. 2. Left larger than right pleural effusions with dependent consolidation. ACT 112: Negative or not required by law. Electronically signed by: Néstor Escobar M.D. 10/22/2023 7:48 AM PG Care Time/CCT Total # of Minutes Spent Total Time Spent with Patient: Total time spent is greater than 50% in coordination of care (as documented) at patient's floor/unit and/or counseling patient: Coding Level of Care Code 79674 SUB INP/OBS CARE 3/50MIN Diagnoses Closed right hip fracture S72.001A Encounter type: initial encounter (HFpEF) heart failure with preserved ejection fraction I50.30 UTI (urinary tract infection) N39.0 Hypoxia R09.02 Paroxysmal atrial fibrillation I48.0 Anxiety F41.9 Leukocytosis D72.829 Leukocytosis type: unspecified Troponin level elevated R79.89 Hypertension I10 Rhabdomyolysis M62.82 Encounter type: initial encounter Iron (Fe) deficiency anemia D50.9 Major depressive disorder, recurrent, mild F33.0 JOSTIN (generalized anxiety disorder) F41.1 Pulmonary edema J81.1 Fall W19.XXXA (1) Closed right hip fracture Encounter type: initial encounter Qualified Code(s): S72.001A - Fracture of unspecified part of neck of right femur, initial encounter for closed fracture (7) Leukocytosis Leukocytosis type: unspecified Qualified Code(s): D72.829 - Elevated white blood cell count, unspecified (10) Rhabdomyolysis Encounter type: initial encounter
--- NOTE | 2023-10-22 08:25 | Electrocardiogram Report ---
Test Reason : Blood Pressure : / mmHG Vent. Rate : 072 BPM Atrial Rate : 072 BPM P-R Int : 238 ms QRS Dur : 104 ms QT Int : 400 ms P-R-T Axes : 057 -19 035 degrees QTc Int : 438 ms Sinus rhythm with 1st degree A-V block Abnormal ECG When compared with ECG of 18-OCT-2023 07:28, QT interval has prolonged but is still normal Confirmed by Candido Holman ([id number]) on 10/22/2023 8:25:05 AM Referred By: REFERRED SELF Confirmed By:Candido Holman
[2023-10-22] MEDS: APIXABAN 5 MG TABLET PO SCH ×2 (08:42→20:11)
[2023-10-22] MEDS: DRONEDARONE HCL 400 MG TAB PO SCH ×2 (08:43→20:10)
[2023-10-22] MEDS: FERROUS SULFATE 325 MG TAB PO SCH (08:43)
[2023-10-22] MEDS: METOPROLOL SUCC 50MG EXT REL TAB PO SCH (08:43)
[2023-10-22] MEDS: lisinopril 20 MG TAB PO SCH ×2 (08:43→20:11)
[2023-10-22] MEDS: POTASSIUM CHLORIDE CRTAB 20 MEQ TABCR PO SCH ×3 (08:43→20:11)
[2023-10-22] MEDS: SERTRALINE HCL 100 MG TABLET PO SCH (08:44)
[2023-10-22] MEDS: PANTOprazole 40 MG TAB PO SCH ×2 (08:44→20:11)
[2023-10-22] MEDS: CHOLECALCIFEROL 1,000 UNITS 25 MCG TAB PO SCH (08:44)
[2023-10-22] MEDS: MULTIVITAMIN TAB PO SCH (08:44)
[2023-10-22] MEDS: FUROSEMIDE 40 MG/4 ML VIAL IV SCH ×2 (08:45→18:10)
[2023-10-22] MEDS: clonazePAM 0.25 MG TAB PO SCH ×3 (08:46→20:10)
[2023-10-22] MEDS ORDERED: FUROSEMIDE 40 MG/4 ML VIAL IV SCH (09:00)
[2023-10-22] MEDS: oxyCODONE HCL IR 5 MG TAB (IMMEDIATE RELEASE) PO PRN (11:02)
[2023-10-22] MEDS: LORazepam 0.5 MG TAB PO PRN (11:02)
[2023-10-22] MEDS ORDERED: MAGNESIUM SULFATE / D5W 1 GM/100 ML BAG IV ONE (11:03)
[2023-10-22] MEDS: cefTRIAXone SODIUM 2,000 MG in DEXTROSE 5 % MINI-B 50 ML IV SCH (12:13)
[2023-10-22 14:18] LABS: Microcytosis Present
[2023-10-22] MEDS: ACETAMINOPHEN 500 MG TAB PO PRN (20:14)
[2023-10-23 06:40] LABS: Basophils # (auto) 0.06 K/uL (0.00-0.20); Basophils % (auto) 0.6 %; Eosinophils # (auto) 0.49 K/uL (0.00-0.50); Eosinophils % (auto) 4.7 %; Hematocrit (blood only) 28.1 % (37.0-47.0); Hemoglobin 8.5 g/dl (12.0-16.0); Immature Granulocytes # (auto) 0.09 K/uL (0.01-0.20); Immature Granulocytes % (auto) 0.9 %; Lymphocytes # (auto) 1.85 K/uL (1.20-3.40); Lymphocytes % (auto) 17.7 %; Mean Corpuscular Hemoglobin 20.5 pg (25.0-34.0); Mean Corpuscular Hgb Conc 30.2 g/dL (32.0-36.0); Mean Corpuscular Volume 67.9 fL (80.0-100.0); Monocytes # (auto) 1.21 K/uL (0.11-0.59); Monocytes % (auto) 11.6 %; Neutrophils # (auto) 6.74 K/uL (1.40-6.50); Neutrophils % (auto) 64.5 %; Nucleated RBC # (auto) 0.04 K/uL (0.00-0.12); Nucleated RBC % (auto) 0.4 %; RDW Coefficient of Variation 15.7 % (11.5-14.5); RDW Standard Deviation 35.4 fL (36.4-46.3); Red Blood Count 4.14 M/uL (4.20-5.40); White Blood Count 10.44 K/ul (4.8-10.8)
[2023-10-23 06:50] LABS: Mean Platelet Volume 10.4 fL (9.4-12.4); Platelet Count 373 K/uL (130-400)
[2023-10-23 07:10] LABS: Albumin Globulin Ratio 1.3 (0.9-2); Albumin Level 3.2 gm/dl (3.4-5.0); BUN Creatinine Ratio 14.7 (10-20); Bilirubin,Total 0.9 mg/dl (0.2-1.0); Calcium 9.1 mg/dl (8.6-10.3); Creatinine Clr Calc Pharmacy 35.9 ml/min; Est GFR (African American) 48.7 ml/min; Globulin 2.4 gm/dl (2.5-4.0); Magnesium 2.1 mg/dl (1.7-2.4); Potassium 4.3 mmol/L (3.5-5.1); Total Protein 5.6 gm/dl (6.0-8.3)
[2023-10-23 07:36] LABS: Hypochromasia Present; Microcytosis Present; Ovalocytes 1+; Polychromasia 1+; Target Cells 1+; Tear Drop Cells 1+
--- NOTE | 2023-10-23 07:48 | XRay Report ---
SINGLE VIEW CHEST CLINICAL HISTORY: Follow-up congestive heart failure. FINDINGS: An AP, portable, upright chest radiograph is compared to study dated 10/22/2023 and correla beatriz with chest CT dated 10/10/2023. The heart is enlarged noting atherosclerotic calcification of the thoracic aorta. There is mild pulmonary vascular congestion. There are small pleural effusions, left larger than right with dependent consolidation. There is no pneumothorax. The skeletal structures are osteopenic. The bony thorax is grossly intact. IMPRESSION: 1. Cardiomegaly with mild pulmonary vascular congestion. This is similar to yesterday. 2. Left larger than right pleural effusions with dependent consolidation. ACT 112: Negative or not required by law. Electronically signed by: Néstor Escobar M.D. 10/23/2023 7:47 AM
--- NOTE | 2023-10-23 08:07 | Hospitalist Progress Note ---
Date of Service October 23, 2023 Assessment & Plan (1) Closed right hip fracture: Plan: Patient sustained a mechanical fall in the late morning on 10/08 while attempting to sit on a chair in her living room, was likely on ground for 24 hours before being found by her daughter -Only signs of trauma at this time are her right hip fracture and bruising over the dorsum of the left foot -Xray: Nondisplaced fracture at the base of fifth proximal phalanx LEFT foot Age-related osteoporotic fracture of the right hip Noted on xray of the right hip/pelvis 10/09 s/p RIGHT hip hemiarthroplasty with Dr. Christian 10/13. EBL 75cc. Pain control/antiemetics prn: Tylenol, oxycodone Vit D level 15.7 --2000 units PO, continue at dc Eliquis BID resumed (went into afib 10/11 w/ elevated rates as below, now s/p cardioversion 10/[address] Jackson) English dc'd 10/19 -- did obtain repeat UA given leukocytosis/english catheter length -- UA+leuk esterase, >30 WBC, 10-20 epi, 4+ bacteria Placed on Ceftriaxone IV daily (got 3 doses) and plan to transition to Keflex PO to complete course Continued daily bowel movements, placed laxatives/softeners on hold for now. PT/OT tara, rehab at [facility] planned, hopefully tomorrow pending continued response to diuretics given CXR w/ cardiomegaly w/ mild pulm vascular congestion similar to day prior ?worsened w/ multaq for her rhythm control. Messaged cardiology of increased diuretic needs and rec to conitnue diuretics as outlined (2) (HFpEF) heart failure with preserved ejection fraction: Plan: Acute on chronic HFpEF Patient appeared dehydrated on admission despite mild pulmonary edema and small BL pleural effusions on thoracic spine CT Given 40mg lasix IV in the ED , placed on IVF while NPO w/ surgery, also had afib w/ elevated rates and suspect that may have worsened CHF symptoms BNP 802 on 10/09 on admission . ECHO EF 60-65%, mild concentric LVH *note surgery note done until 10/13 and suspect being off her diuretics/IVF likely worsened CHF prior Repeat CXR 10/19 given continued O2 requirements/weight gain -- noting was given 20mg IV lasix x 2 doses (then placed on hold given hypotension/confusion) --> Imaging w/ cardiomegaly w/ congestive failure/pulmonary edema and layering effusions w/ dependent consolidation Lasix 40mg IV on 10/19 and repeated BID on 10/20 for continued congestion/hypoxia and increased to 80mg IV BID w/ some improvement/decreased BNP on repeat to 300s however still congested. Had NOT been using her incentive spirometer (educated today/encouraged) Continue fluid restriction Weights/I&Os Supplemental O2 to maintain sats, titrate as able Will obtain overnight pulse ox tonight given daughter reporting every time inpatient she requires o2 at night. ?underlying EDGAR -- was done on 2L but she was fearful she may need this. monitor/otherwise would continue 2L while sleeping at dc until outpatient sleep study able to be performed (3) UTI (urinary tract infection): Plan: suspect UTI cause for leukocytossi 2nd to catheter for surgery, removed as above however concerns w/ leukocytosis/length of catheter placement and repeat UA obtained Urine culture with KLEBSIELLA (sensitive except intermediate to nitrofurantoin) --> got 3 doses Ceftriaxone and plan to transition to PO 10/24 to complete course (4) Hypoxia: Plan: Reportedly hypoxic on arrival. CXR w/o acute finding however did note subsegmental atelectasis and chronic interstitial thickening. Did get IV lasix in ER, but placed on IVF as above CTA on 10/10 w/o evidence for PE but noted atelectasis and trace pleural effusions Completed 6 day course while inpatient last week 10/09 through 10/14 with unasyn and doxycycline ABOVE, suspect acute on chronic CHF exacerbation with preserved ejection fraction and diuretics as outlined INCENTIVE SPIROMETER ENCOURAGED, shown how to use 10/23 (5) Paroxysmal atrial fibrillation: Plan: Flipped to Afib evening of 10/11, rates 100-160s Discussed case with Dr. Bland, cardiology - increased flecainide to 150mg BID and continue IV Lopressor as BP allows Continues on metoprolol 100mg daily Eliquis resumed as above, s/p cardioversion 10/[address] Jackson. Rates controlled, in NSR since cardioversion --> per Dr Holman, starting Multaq 400mg BID for better rhythm control and has remain SR at present. 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 Remains wnl, afebrile. Borderline 10.4 w/ L shift and NOW ELEVATED 10/21, suspected 2nd UTI given catheter post-op for hip fracture, removed 10/19 Local blisters observed at site of dressing to RIGHT hip prior last week, notified ortho, likely 2nd to fracture/tension blister-- rec daily dressing changes. 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) Likely due to demand from falling and being on the ground for approximately 24 hours Patient denied chest pain -ECG showed possible RBBB with ST depression in the anterior leads 12/4 Echo: mild LVH, EF 60-65% NO CP REPORTED, REMAINING IN NSR Note hx thalassemia trait (explains chronic microcytosis) -- consider f/u outpt (9) Hypertension: Plan: Stable, hypotensive at times Continues home metoprolol, mainly for afib Home amlodipine and lisinopril initially held in the setting of dehydration and rhabdomyolysis --> lisinopril resumed given CHF as above, monitor off amlodipine w increased diuretics (10) Rhabdomyolysis: Plan: Initial CK elevated at 1284 --> 743 Improved - renal function and LFTs WNLs (11) Iron (Fe) deficiency anemia: Plan: low iron, thalassemia trait. will resume PO supplementation suspect hgb dilutional from overload, no bleeding reported. stable hgb w/ diuretics/no bleeding reported (12) Major depressive disorder, recurrent, mild: (13) JOSTIN (generalized anxiety disorder): (14) Pulmonary edema: Plan: as above, lasix IV continued, serial CXR eventual outpt sleep study rec for likely underlying EDGAR (15) Fall: Plan: As above, planning for rehab at discharge at [facility] hopefully this upcoming week Tuesday/Tuesday pending continued response to diuretics Plan Dispo: Continued inpatient stay, hopefully dc to [facility] Tuesday vs Tuesday, CM following and has been accepted Lasix IV BID as outlined, updated daughter Shahnaz by phone 10/23 Admission and Anticipated Discharge Date Admission Date: October 09, 2023 Supervising Physician Co-Signing Physician Notes The patient was not seen by me. The chart was reviewed. Case discussed with GIACOMO Hester. Agree with assessment and plan Subjective Eval this morning, sitting up in bed. Little sleepy today but reports feeling better. Asking nursing and patient to use incentive spirometer more often. Showed patient use in room and she completed x 10. Continued diuretics , CXR w/ some improvement but discussed possibly overloaded on admission. Discussed overnight o2 study and possible underlying sleep apnea as done on 2L and needing continuous and prior admits w/ always needing O2 at night. She reports she was worried about that. Denies any fever/chills, chest pain or difficulty with breathing at present time on 2L supplementation. Discussed continued inpatient stay and [facility] hopefully tomorrow but wanting to get her optimized. Telemetry w/ stable SR/1st degree. Questions/concerns addressed at this time. Physical Exam Physical Exam: General: 88yo female sitting up in bed, reports feeling improved but still fatigued appearing HEENT: head atraumatic, normocephalic, mmm, trachea midline, +JVD Resp: diminished in the bases with associated crackles (improvement in air entry today, working on incentive spirometer with her), on 2L NC to maintain satur ation CV: RRR, no significant m/r/g, trace-1+ pedal edema, calves nontender, pulses palpable MSK/Neuro: dressing to RIGHT hip intact/changed, dry at present time without surrounding cellulitis/warmth, decreased swelling. sensation intact Psych: AOx3 with intermittent forgetfullness, cooperative/calm with exam Results & Data Results & Data Vital Signs (Past 12 Hours) Vital Signs Temp Pulse Pulse Pulse Pulse Resp BP 10/23/23 07:55 63 10/23/23 07:35 36.6 C 91 H 16 101/61 10/23/23 07:00 36.9 C 68 20 121/61 10/23/23 04:00 36.7 C 88 18 104/61 10/23/23 03:20 67 10/23/23 00:14 72 10/22/23 22:26 67 71 10/22/23 22:13 69 10/22/23 22:00 36.9 C 67 20 112/57 L 10/22/23 21:00 Pulse Ox Pulse Ox Pulse Ox Pulse Ox O2 Del Method O2 Del Method O2 Del Method 10/23/23 07:55 10/23/23 07:35 91 Nasal Cannula 10/23/23 07:00 92 Nasal Cannula 10/23/23 04:00 93 Nasal Cannula 10/23/23 03:20 92 Nasal Cannula 10/23/23 00:14 94 Nasal Cannula 10/22/23 22:26 92 86 L Nasal Cannula 10/22/23 22:13 10/22/23 22:00 90 Nasal Cannula 10/22/23 21:00 91 Nasal Cannula O2 Del Method O2 Flow Rate O2 Flow Rate O2 Flow Rate 10/23/23 07:55 10/23/23 07:35 2 10/23/23 07:00 2 10/23/23 04:00 3 10/23/23 03:20 2 10/23/23 00:14 2 10/22/23 22:26 Room Air 2 10/22/23 22:13 10/22/23 22:00 2 10/22/23 21:00 2 Laboratory Results 10/23/23 10/22/23 Range/Units 05:46 05:53 WBC 10.44 (4.8-10.8) K/ul RBC 4.14 L (4.20-5.40) M/uL Hgb 8.5 L (12.0-16.0) g/dl Hct 28.1 L (37.0-47.0) % MCV 67.9 L (80.0-100.0) fL MCH 20.5 L (25.0-34.0) pg MCHC 30.2 L (32.0-36.0) g/dL RDW Std Deviation 35.4 L (36.4-46.3) fL RDW Coeff of Mikayla 15.7 H (11.5-14.5) % Plt Count 373 (130-400) K/uL MPV 10.4 (9.4-12.4) fL Immature Gran % (Auto) 0.9 % Neut % (Auto) 64.5 % Lymph % (Auto) 17.7 % [place] % (Auto) 11.6 % Eos % (Auto) 4.7 % Baso % (Auto) 0.6 % Neut # (Auto) 6.74 H (1.40-6.50) K/uL Lymph # (Auto) 1.85 (1.20-3.40) K/uL [place] # (Auto) 1.21 H (0.11-0.59) K/uL Eos # (Auto) 0.49 (0.00-0.50) K/uL Baso # (Auto) 0.06 (0.00-0.20) K/uL Immature Gran # (Auto) 0.09 (0.01-0.20) K/uL Absolute Nucleated RBC 0.04 (0.00-0.12) K/uL Nucleated RBC % (auto) 0.4 % Polychromasia 1+ Hypochromasia Present Microcytosis Present Present Target Cells 1+ Tear Drop Cells 1+ Ovalocytes 1+ Sodium 138 (136-145) mmol/L Potassium 4.3 (3.5-5.1) mmol/L Chloride 99 (98-107) mmol/L Carbon Dioxide 34 H (21-32) mmol/L Anion Gap 5 (3-11) BUN 17 (6-23) mg/dl Creatinine 1.16 D (0.6-1.2) mg/dl Est Cr Clr Drug Dosing 35.9 ml/min Est GFR ( Amer) 48.7 ml/min Est GFR (Non-Af Amer) 42.0 ml/min BUN/Creatinine Ratio 14.7 (10-20) Glucose 97 (70-99(Fasting)) mg/dl Calcium 9.1 (8.6-10.3) mg/dl Magnesium 2.1 (1.7-2.4) mg/dl Total Bilirubin 0.9 (0.2-1.0) mg/dl AST 18 (13-39) U/L ALT 14 (7-52) U/L Alkaline Phosphatase 75 (34-104) U/L Total Protein 5.6 L (6.0-8.3) gm/dl Albumin 3.2 L (3.4-5.0) gm/dl Globulin 2.4 L (2.5-4.0) gm/dl Albumin/Globulin Ratio 1.3 (0.9-2) Diagnostic Findings Chest X-Ray 10/23/23 07:00 SINGLE VIEW CHEST CLINICAL HISTORY: Follow-up congestive heart failure. FINDINGS: An AP, portable, upright chest radiograph is compared to study dated 10/22/2023 and correlated with chest CT dated 10/10/2023. The heart is enlarged noting atherosclerotic calcification of the thoracic aorta. There is mild pulmonary vascular congestion. There are small pleural effusions, left larger than right with dependent consolidation. There is no pneumothorax. The skeletal structures are osteopenic. The bony thorax is grossly intact. IMPRESSION: 1. Cardiomegaly with mild pulmonary vascular congestion. This is similar to yesterday. 2. Left larger than right pleural effusions with dependent consolidation. ACT 112: Negative or not required by law. Electronically signed by: Néstor Escobar M.D. 10/23/2023 7:47 AM PG Care Time/CCT Total # of Minutes Spent Total Time Spent with Patient: Total time spent is greater than 50% in coordination of care (as documented) at patient's floor/unit and/or counseling patient: Coding Level of Care Code 12195 SUB INP/OBS CARE 3/50MIN Diagnoses Closed right hip fracture S72.001A Encounter type: initial encounter (HFpEF) heart failure with preserved ejection fraction I50.30 UTI (urinary tract infection) N39.0 Hypoxia R09.02 Paroxysmal atrial fibrillation I48.0 Anxiety F41.9 Leukocytosis D72.829 Leukocytosis type: unspecified Troponin level elevated R79.89 Hypertension I10 Rhabdomyolysis M62.82 Encounter type: initial encounter Iron (Fe) deficiency anemia D50.9 Major depressive disorder, recurrent, mild F33.0 JOSTIN (generalized anxiety disorder) F41.1 Pulmonary edema J81.1 Fall W19.XXXA (1) Closed right hip fracture Encounter type: initial encounter Qualified Code(s): S72.001A - Fracture of unspecified part of neck of right femur, initial encounter for closed fracture (7) Leukocytosis Leukocytosis type: unspecified Qualified Code(s): D72.829 - Elevated white blood cell count, unspecified (10) Rhabdomyolysis Encounter type: initial encounter
[2023-10-23] MEDS: lisinopril 20 MG TAB PO SCH ×2 (08:54→20:26)
[2023-10-23] MEDS: DRONEDARONE HCL 400 MG TAB PO SCH ×2 (08:55→20:27)
[2023-10-23] MEDS: FERROUS SULFATE 325 MG TAB PO SCH (08:55)
[2023-10-23] MEDS: CHOLECALCIFEROL 1,000 UNITS 25 MCG TAB PO SCH (08:55)
[2023-10-23] MEDS: SERTRALINE HCL 100 MG TABLET PO SCH (08:55)
[2023-10-23] MEDS: PANTOprazole 40 MG TAB PO SCH ×2 (08:55→20:27)
[2023-10-23] MEDS: APIXABAN 5 MG TABLET PO SCH ×2 (08:55→20:27)
[2023-10-23] MEDS: POTASSIUM CHLORIDE CRTAB 20 MEQ TABCR PO SCH ×2 (08:56→20:26)
[2023-10-23] MEDS: MULTIVITAMIN TAB PO SCH (08:56)
[2023-10-23] MEDS: METOPROLOL SUCC 50MG EXT REL TAB PO SCH (08:56)
[2023-10-23] MEDS: FUROSEMIDE 40 MG/4 ML VIAL IV SCH ×2 (08:57→17:38)
[2023-10-23] MEDS: clonazePAM 0.25 MG TAB PO SCH ×3 (09:00→20:26)
[2023-10-23] MEDS: cefTRIAXone SODIUM 2,000 MG in DEXTROSE 5 % MINI-B 50 ML IV SCH (12:17)
[2023-10-23] MEDS: ACETAMINOPHEN 500 MG TAB PO PRN (21:43)
--- NOTE | 2023-10-24 06:28 | Communication Note ---
Date of Service: October 24, 2023 Reardon catheter ordered due to urinary retention. Straight cathed by nursing earlier in the shift for 1.3L and bladder scan now shows >999 mL of retained urine.
--- NOTE | 2023-10-24 07:15 | XRay Report ---
XR chest 1V portable CLINICAL HISTORY: f/u pulmonary edema/vascular congestion COMPARISON STUDY: Chest CT October 10, 2023. Chest radiograph October 23, 2023. FINDINGS: There is no pneumothorax. Small left and trace right pleural effusions are present. Persist ent bibasilar opacities are noted. Cardiomegaly is unchanged. Pulmonary vascular congestion is unchan ged. Linear right midlung opacity is also unchanged and favors atelectasis. IMPRESSION: 1. No change in appearance of the chest. Bibasilar opacities which could reflect pneumonia or atelect asis. Radiographic follow-up to ensure resolution is recommended. 2. Cardiomegaly with pulmonary vascular congestion. Small left and trace right pleural effusions. ACT 112: Negative or not required by law. Electronically signed by: Vinicius Brennan M.D. 10/24/2023 7:14 AM
[2023-10-24 07:30] LABS: Basophils # (auto) 0.06 K/uL (0.00-0.20); Basophils % (auto) 0.6 %; Eosinophils # (auto) 0.39 K/uL (0.00-0.50); Eosinophils % (auto) 4.2 %; Hematocrit (blood only) 29.5 % (37.0-47.0); Hemoglobin 9.1 g/dl (12.0-16.0); Immature Granulocytes # (auto) 0.07 K/uL (0.01-0.20); Immature Granulocytes % (auto) 0.7 %; Lymphocytes # (auto) 2.15 K/uL (1.20-3.40); Lymphocytes % (auto) 22.9 %; Mean Corpuscular Hemoglobin 20.8 pg (25.0-34.0); Mean Corpuscular Hgb Conc 30.8 g/dL (32.0-36.0); Mean Corpuscular Volume 67.4 fL (80.0-100.0); Monocytes # (auto) 0.86 K/uL (0.11-0.59); Monocytes % (auto) 9.2 %; Neutrophils # (auto) 5.85 K/uL (1.40-6.50); Neutrophils % (auto) 62.4 %; Nucleated RBC # (auto) 0.02 K/uL (0.00-0.12); Nucleated RBC % (auto) 0.2 %; RDW Coefficient of Variation 15.8 % (11.5-14.5); RDW Standard Deviation 35.5 fL (36.4-46.3); Red Blood Count 4.38 M/uL (4.20-5.40); White Blood Count 9.38 K/ul (4.8-10.8)
[2023-10-24 07:45] LABS: BUN Creatinine Ratio 13.9 (10-20); Calcium 8.9 mg/dl (8.6-10.3); Creatinine Clr Calc Pharmacy 36.5 ml/min; Est GFR (African American) 49.2 ml/min; Est GFR (Non-African American) 42.4 ml/min; Magnesium 2.1 mg/dl (1.7-2.4)
[2023-10-24 08:03] LABS: Mean Platelet Volume 10.2 fL (9.4-12.4); Microcytosis Present; Ovalocytes 1+; Platelet Count 364 K/uL (130-400); Polychromasia 1+; Target Cells 1+; Tear Drop Cells 1+
[2023-10-24] MEDS: PANTOprazole 40 MG TAB PO SCH (08:12)
[2023-10-24] MEDS: APIXABAN 5 MG TABLET PO SCH (08:12)
[2023-10-24] MEDS: METOPROLOL SUCC 50MG EXT REL TAB PO SCH (08:12)
[2023-10-24] MEDS: lisinopril 20 MG TAB PO SCH (08:13)
[2023-10-24] MEDS: POTASSIUM CHLORIDE CRTAB 20 MEQ TABCR PO SCH (08:13)
[2023-10-24] MEDS: DRONEDARONE HCL 400 MG TAB PO SCH (08:13)
[2023-10-24] MEDS: CHOLECALCIFEROL 1,000 UNITS 25 MCG TAB PO SCH (08:14)
[2023-10-24] MEDS: SERTRALINE HCL 100 MG TABLET PO SCH (08:14)
[2023-10-24] MEDS: MULTIVITAMIN TAB PO SCH (08:14)
[2023-10-24] MEDS: FERROUS SULFATE 325 MG TAB PO SCH (08:14)
[2023-10-24] MEDS: clonazePAM 0.25 MG TAB PO SCH (08:16)
[2023-10-24] MEDS: oxyCODONE HCL IR 5 MG TAB (IMMEDIATE RELEASE) PO PRN (08:16)
[2023-10-24] MEDS: FUROSEMIDE 40 MG/4 ML VIAL IV SCH (08:17)
--- NOTE | 2023-10-24 08:19 | Hospitalist Progress Note ---
Date of Service October 24, 2023 Assessment & Plan (1) Closed right hip fracture: Plan: Patient sustained a mechanical fall in the late morning on 10/08 while attempting to sit on a chair in her living room, was likely on ground for 24 hours before being found by her daughter -Only signs of trauma at this time are her right hip fracture and bruising over the dorsum of the left foot -Xray: Nondisplaced fracture at the base of fifth proximal phalanx LEFT foot Age-related osteoporotic fracture of the right hip Noted on xray of the right hip/pelvis 10/09 s/p RIGHT hip hemiarthroplasty with Dr. Christian 10/13. EBL 75cc. Pain control/antiemetics prn: Tylenol, oxycodone Vit D level 15.7 --2000 units PO, continue at dc Eliquis BID resumed (went into afib 10/11 w/ elevated rates as below, now s/p cardioversion 10/[address] Jackson) English dc'd 10/19 -- did obtain repeat UA given leukocytosis/english catheter length -- UA+leuk esterase, >30 WBC, 10-20 epi, 4+ bacteria Placed on Ceftriaxone IV daily (got 3 doses) and plan to transition to Keflex PO to complete course Continued daily bowel movements, placed laxatives/softeners on hold for now. PT/OT tara, rehab at [facility] planned, hopefully tomorrow pending continued response to diuretics given CXR w/ cardiomegaly w/ mild pulm vascular congestion similar to day prior ?worsened w/ multaq for her rhythm control. Messaged cardiology of increased diuretic needs and rec to conitnue diuretics as outlined (2) (HFpEF) heart failure with preserved ejection fraction: Plan: Acute on chronic HFpEF Patient appeared dehydrated on admission despite mild pulmonary edema and small BL pleural effusions on thoracic spine CT Given 40mg lasix IV in the ED , placed on IVF while NPO w/ surgery, also had afib w/ elevated rates and suspect that may have worsened CHF symptoms BNP 802 on 10/09 on admission . ECHO EF 60-65%, mild concentric LVH *note surgery note done until 10/13 and suspect being off her diuretics/IVF likely worsened CHF prior Repeat CXR 10/19 given continued O2 requirements/weight gain -- noting was given 20mg IV lasix x 2 doses (then placed on hold given hypotension/confusion) --> Imaging w/ cardiomegaly w/ congestive failure/pulmonary edema and layering effusions w/ dependent consolidation Lasix 40mg IV on 10/19 and repeated BID on 10/20 for continued congestion/hypoxia and increased to 80mg IV BID w/ some improvement/decreased BNP on repeat to 300s however still congested. Had NOT been using her incentive spirometer (educated today/encouraged) Continue fluid restriction Weights/I&Os Supplemental O2 to maintain sats, titrate as able Will obtain overnight pulse ox tonight given daughter reporting every time inpatient she requires o2 at night. ?underlying EDGAR -- was done on 2L but she was fearful she may need this. monitor/otherwise would continue 2L while sleeping at dc until outpatient sleep study able to be performed (3) UTI (urinary tract infection): Plan: suspect UTI cause for leukocytossi 2nd to catheter for surgery, removed as above however concerns w/ leukocytosis/length of catheter placement and repeat UA obtained Urine culture with KLEBSIELLA (sensitive except intermediate to nitrofurantoin) --> got 3 doses Ceftriaxone and plan to transition to PO 10/24 to complete course (4) Hypoxia: Plan: Reportedly hypoxic on arrival. CXR w/o acute finding however did note subsegmental atelectasis and chronic interstitial thickening. Did get IV lasix in ER, but placed on IVF as above CTA on 10/10 w/o evidence for PE but noted atelectasis and trace pleural effusions Completed 6 day course while inpatient last week 10/09 through 10/14 with unasyn and doxycycline ABOVE, suspect acute on chronic CHF exacerbation with preserved ejection fraction and diuretics as outlined INCENTIVE SPIROMETER ENCOURAGED, shown how to use 10/23 (5) Paroxysmal atrial fibrillation: Plan: Flipped to Afib evening of 10/11, rates 100-160s Discussed case with Dr. Bland, cardiology - increased flecainide to 150mg BID and continue IV Lopressor as BP allows Continues on metoprolol 100mg daily Eliquis resumed as above, s/p cardioversion 10/[address] Jackson. Rates controlled, in NSR since cardioversion --> per Dr Holman, starting Multaq 400mg BID for better rhythm control and has remain SR at present. 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 Remains wnl, afebrile. Borderline 10.4 w/ L shift and NOW ELEVATED 10/21, suspected 2nd UTI given catheter post-op for hip fracture, removed 10/19 Local blisters observed at site of dressing to RIGHT hip prior last week, notified ortho, likely 2nd to fracture/tension blister-- rec daily dressing changes. 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) Likely due to demand from falling and being on the ground for approximately 24 hours Patient denied chest pain -ECG showed possible RBBB with ST depression in the anterior leads 12/4 Echo: mild LVH, EF 60-65% NO CP REPORTED, REMAINING IN NSR Note hx thalassemia trait (explains chronic microcytosis) -- consider f/u outpt (9) Hypertension: Plan: Stable, hypotensive at times Continues home metoprolol, mainly for afib Home amlodipine and lisinopril initially held in the setting of dehydration and rhabdomyolysis --> lisinopril resumed given CHF as above, monitor off amlodipine w increased diuretics (10) Rhabdomyolysis: Plan: Initial CK elevated at 1284 --> 743 Improved - renal function and LFTs WNLs (11) Iron (Fe) deficiency anemia: Plan: low iron, thalassemia trait. will resume PO supplementation suspect hgb dilutional from overload, no bleeding reported. stable hgb w/ diuretics/no bleeding reported (12) Major depressive disorder, recurrent, mild: (13) JOSTIN (generalized anxiety disorder): (14) Pulmonary edema: Plan: as above, lasix IV continued, serial CXR eventual outpt sleep study rec for likely underlying EDGAR (15) Fall: Plan: As above, planning for rehab at discharge at [facility] hopefully this upcoming week Tuesday/Tuesday pending continued response to diuretics Plan Dispo: Continued inpatient stay, hopefully dc to [facility] Tuesday vs Tuesday, CM following and has been accepted Lasix IV BID as outlined, updated daughter Shahnaz by phone 10/23 Admission and Anticipated Discharge Date Admission Date: October 09, 2023 Results & Data Results & Data Vital Signs (Past 12 Hours) Vital Signs Temp Pulse Pulse Resp BP Pulse Ox O2 Del Method 10/24/23 07:45 36.8 C 66 16 117/56 L 91 Nasal Cannula 10/24/23 05:57 65 10/24/23 04:35 36.6 C 68 18 115/64 92 Nasal Cannula 10/23/23 23:50 36.9 C 68 18 114/58 L 92 Nasal Cannula 10/23/23 21:58 73 O2 Flow Rate 10/24/23 07:45 2 10/24/23 05:57 10/24/23 04:35 2 10/23/23 23:50 2 10/23/23 21:58 PG Care Time/CCT Total # of Minutes Spent Total Time Spent with Patient: Total time spent is greater than 50% in coordination of care (as documented) at patient's floor/unit and/or counseling patient: Coding Diagnoses Closed right hip fracture S72.001A Encounter type: initial encounter (HFpEF) heart failure with preserved ejection fraction I50.30 UTI (urinary tract infection) N39.0 Hypoxia R09.02 Paroxysmal atrial fibrillation I48.0 Anxiety F41.9 Leukocytosis D72.829 Leukocytosis type: unspecified Troponin level elevated R79.89 Hypertension I10 Rhabdomyolysis M62.82 Encounter type: initial encounter Iron (Fe) deficiency anemia D50.9 Major depressive disorder, recurrent, mild F33.0 JOSTIN (generalized anxiety disorder) F41.1 Pulmonary edema J81.1 Fall W19.XXXA (1) Closed right hip fracture Encounter type: initial encounter Qualified Code(s): S72.001A - Fracture of unspecified part of neck of right femur, initial encounter for closed fracture (7) Leukocytosis Leukocytosis type: unspecified Qualified Code(s): D72.829 - Elevated white blood cell count, unspecified (10) Rhabdomyolysis Encounter type: initial encounter
--- NOTE | 2023-10-24 10:38 | Discharge Summary ---
Date of Service October 24, 2023 Admission HPI Per Admitting Provider Lizette is an 88 y/o female w/ PmHx paroxysmal atrial fibrillation on Eliquis, HTN, HFpEF, GERD, arthritis, and anxiety who presented to the [facility] ED on 10/09 via EMS after being found down at home this am. Per the ED staff, EMS found the patient to be hypoxic in the 70's on RA, she was placed on 6L NC prior to arrival. In the ED she remained stable on 6L oxymask and was otherwise stable. Labs were significant for a leukocytosis of 22 with neutrophil predominance of 19, intial high sen trop of 157, UA with 2+ protein, 1+ ketones, 2+ blood, 5-10 RBC's, and 10-20 epithelial cells, full respiratory biofire negat dayo, and with sodium, potassium, and AST too hemolyzed on first draw. CT head, chest xray, and cervical spine CT were read as negative for acute findings. Ct of the thoracic spine was read as "1. No acute fractures within the thoracic spine.2. Mild pulmonary edema and trace bilateral pleural effusions.". Lumbar spine CT was read as "1. No acute fractures within the lumbar spine. 2. Old mild superior endplate compression deformity at L1, unchanged. 3. Partially visualized cystic lesion at the pancreatic head measuring 2.5 cm. 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 Therefore, this is of doubtful current significance given the patient's age.". Xray of the right hip with pelvis was read as "Right femoral neck fracture. ". Prior to admission the patient was given 1gm IV tylenol, a dose of Zosyn, and 40 mg IV lasix. At the time of the exam the patient was lying in bed in no acute distress with her daughter sitting bedside, history was obtained from both. The patient is a resident of the [facility]. She states that she was in her apartment yesterday and was trying to sit on a living room chair to watch TV. She states that she thought the chair was closer than it actually was and only sat on the edge, causing her to fall to the ground and land on her buttocks. She denies hitting her head or losing consciousness but was on the ground all night until her daughter found her this am around 1100. She denies recent fever, chills, chest pain, cough, abd pain, nausea, vomiting, diarrhea, dysuria, hematuria, melena, and LE swelling. She has not had any of her home medications since 10/07 as she did not have her am medications prior to her fall yesterday. We discussed code status, the patient wishes to be a DNR/DNI. Her daughter, Liz Lynch [phone], is her POA if she cannot make decisions on her own. Please refer to Dr. Alexandra's attestation for any changes to the treatment plan Admission Exam Per Admitting Provider Physical Exam: General: In no acute distress, stated age, non-toxic appearing HEENT: Normocephalic, atraumatic, no scleral icterus, pupils around round, symmetrical, and reactive to light, dry mucus membranes, trachea midline, no thyromegaly Chest/Pulm: No respiratory distress, symmetrical chest expansion, decreased breath sounds in the BL lower lung olmos, otherwise CTA Cardiac: RRR, no murmurs noted Abdomen: Negative for ascites and bruising, normoactive bowel sounds, soft, non- tender to palpation throughout Musculoskeletal: No acute trauma on inspection and palpation of the face, head, cervical spine, chest abd, and LLE. Patient with RLE shortened and minimally externally rotated with tenderness to palpation over the right hip, otherwise no acute trauma noted in the RLE Extremities: Radial, dorsalis pedis, and posterior tibial pulses are intact and symmetrical, no edema noted in the BL LE's Skin: Warm, dry, no rashes , lesions, or scars noted Neuro: Alert and oriented to person, place, month, year, and president, no focal defects, CN II-XII tested and intact, no tremors noted Psych: No acute distress, calm and cooperative during the exam Principal Diagnosis Fall, Hip Fracture (RIGHT) Discharge Exam General: 88yo female sitting up in bed, reports feeling improved but still fatigued appearing and on 2L NC HEENT: head atraumatic, normocephalic, mmm, trachea midline Resp: diminished in the bases with associated crackles (improvement in air entry today, working on incentive spirometer with her), on 2L NC to maintain saturation CV: RRR, no significant m/r/g, trace-1+ pedal edema, calves nontender, pulses palpable MSK/Neuro: dressing to RIGHT hip intact/changed, dry at present time without surrounding cellulitis/warmth, decreased swelling. sensation intact Psych: AOx3 with intermittent forgetfulness, cooperative/calm with exam Discharge Data Allergies Allergy/AdvReac Type Severity Reaction Status Date / Time metronidazole Allergy Intermediate HIVES Verified 10/09/23 16:33 naproxen Allergy Intermediate HIVES Verified 10/09/23 16:33 perflutren [From Definity] AdvReac Back Pain Verified 10/10/23 07:53 Consultations 10/09/23 15:24 ED Decision to Admit Stat 10/09/23 17:08 Consult Orthopedic Surgery Routine 10/15/23 15:50 Consult Psychiatry Routine 10/16/23 09:40 Consult Cardiology Routine Procedures Performed Operation Date: 10/18/23 07:15 Actual Procedures p Echo Transesophageal - Ryan Jackson MD s Cardioversion - Ryan Jackson MD s Echo Color Flow - Ryan Jackson MD Ordered Studies Hip/Pelvis X-Ray 10/09/23 13:06 XR hip RT 2V w pelvis CLINICAL HISTORY: Fall with right hip pain. COMPARISON STUDY: None. FINDINGS: Slightly displaced fracture within the right femoral neck. No dislocation. The visualized pelvic bones are intact. IMPRESSION: Right femoral neck fracture. ACT 112: Negative or not required by law. Electronically signed by: Markus Gongora M.D. 10/09/2023 2:[address] 10/09/23 13:[address] DOSE: HISTORY: Trauma TECHNIQUE: Multiaxial CT images of the cervical spine were performed and reformatted in the sagittal and coronal plane without the use of contrast. A dose lowering technique was utilized adhering to the principles of ALARA. COMPARISON: None. FINDINGS: No fractures. There is 2 mm of anterolisthesis of C4 on C5 likely due to long-standing degenerative change. Moderate degenerative disc disease from C5 through C7 is noted. Cdsk-lq-urqyfkwy facet degenerative changes. Multinodular thyroid gland is noted. Prevertebral soft tissues and the C1-C2 interval are intact. No pneumothorax. IMPRESSION: No fractures within the cervical spine. ACT 112: Negative or not required by law. Electronically signed by: Markus Gongora M.D. 10/09/2023 3:04 PM Chest X-Ray 10/09/23 13:07 XR chest 1V portable HISTORY: sob, hypoxia COMPARISON: 04/22/2023. FINDINGS: Rotated study. No pneumothorax. No pleural effusions. The heart remains enlarged. No evidence for pulmonary edema. Chronic interstitial thickening persists. Bibasilar linear densities favor subsegmental atelectasis. IMPRESSION: No significant change compared to the prior study. No acute process. ACT 112: Negative or not required by law. Electronically signed by: Markus Gongora M.D. 10/09/2023 2:[address] 10/09/23 13:[address] DOSE: HISTORY: Trauma TECHNIQUE: Multiaxial CT images of the head were performed without the use of intravenous contrast. Automated exposure control was utilized for this study. A dose lowering technique was utilized adhering to the principles of ALARA. Comparison: None. Findings: Moderate mucosal thickening within the floor of the right maxillary sinus. The calvarium and skull base are intact. There is no mass, hematoma, midline shift, acute infarct. White matter hypodensity is nonspecific but suggestive of microvascular ischemic change. The ventricles and sulci demonstrate mild age-related involutional changes. Impression: No acute intracranial abnormality. ACT 112: Negative or not required by law. Electronically signed by: Markus Gongora M.D. 10/09/2023 3:[address] 10/09/23 13:[address] DOSE: 3509.39 mGy.cm HISTORY: Trauma TECHNIQUE: Multiaxial CT images of the lumbar spine were performed and reformatted in the sagittal and coronal plane without the use of contrast. A dose lowering technique was utilized adhering to the principles of ALARA. COMPARISON: Chest CT 04/26/2022. FINDINGS: There is an old mild superior endplate compression fracture at L1, unchanged. No associated retropulsion. No acute fractures within the lumbar spine. The visualized sacrum is intact. Mild disc space narrowing at L4-5. Partially visualized cystic lesion at the pancreatic head measuring 2.5 cm. IMPRESSION: 1. No acute fractures within the lumbar spine. 2. Old mild superior endplate compression deformity at L1, unchanged. 3. Partially visualized cystic lesion at the pancreatic head measuring 2.5 cm. 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 Therefore, this is of doubtful current significance given the patient's age. ACT 112: Negative or not required by law. Electronically signed by: Markus Gongora M.D. 10/09/2023 3:[address] 10/09/23 13:[address] DOSE: HISTORY: Trauma TECHNIQUE: Multiaxial CT images of the thoracic spine were performed and reformatted in the sagittal and coronal plane without the use of contrast. A dose lowering technique was utilized adhering to the principles of ALARA. COMPARISON: None. FINDINGS: No fractures. No subluxation. Paraspinal soft tissues are unremarkable. No pneumothorax. Multinodular thyroid gland. Trace bilateral pleural effusions with interlobular septal thickening consistent with pulmonary edema. The heart is enlarged. There are patchy densities within the lungs posteriorly. This reduces pulmonary edema and/or atelectasis. IMPRESSION: 1. No acute fractures within the thoracic spine.. 2. Mild pulmonary edema and trace bilateral pleural effusions. ACT 112: Negative or not required by law. Electronically signed by: Markus Gongora M.D. 10/09/2023 3:08 PM Foot X-Ray 10/09/23 16:35 LEFT FOOT 3 VIEWS HISTORY: fall, bruising over dorsum of left foot COMPARISON: None. FINDINGS: Only seen on the lateral view there is a possible nondisplaced fracture at the base of the left fifth toe proximal phalanx. This is difficult to assess due to the flexion deformities of the toes. The bones are osteopenic. The Lisfranc joint is aligned. Plantar and posterior calcaneal spurs are noted. No radiopaque foreign bodies. IMPRESSION: Possible nondisplaced fracture at the base of the left fifth toe proximal phalanx. Recommend correlation for pain at this location to assess for an acute injury. ACT 112: Negative or not required by law. Electronically signed by: Markus Gongora M.D. 10/09/2023 5:25 PM Chest X-Ray 10/10/23 09:55 XR chest 1V portable CLINICAL HISTORY: increasing O2 needs TECHNIQUE: Single frontal radiograph of the chest was obtained. Comparison: Comparison is made to chest radiograph 10/09/2023 FINDINGS: No lines and tubes are seen. Calcified aortic knob is seen. The lungs are clear. No evidence of pleural effusion or pneumothorax. IMPRESSION: No acute chest disease. Cardiomegaly is noted. ACT 112: Negative or not required by law. Electronically signed by: Gio Sawant M.D. 10/10/2023 10:31 AM Chest CTA 10/10/23 11:54 CT angio chest PE protocol CLINICAL HISTORY: PE TECHNIQUE: Multidetector row helical CT of the chest was performed with angiographic protocol. Coronal and sagittal reformations were obtained. Coronal and sagittal MIPS were obtained from the axial data set and were submitted for review. Automated dose lowering techniques and/or adjustment according to patient size were utilized for this exam. CT DOSE: 765.13 mGy.cm Comparison: Comparison is made to CT chest 04/26/2022 FINDINGS: Lungs and pleura: There is a 5 mm nodule in the right upper lobe (series 4 image 69). There is trace bilateral pleural effusion with underlying atelectasis. Heart and pericardium: Cardiomegaly is seen with biatrial enlargement. Vessels: No evidence of pulmonary embolism. Mediastinum and sherrie: Unremarkable. Chest wall and lower neck: Small thyroid nodules are noted which do not require follow-up by ACR criteria. Abdomen: Unremarkable. Bones: Degenerative changes in the thoracic spine. IMPRESSION: 1. No acute abnormality and in particular no evidence of pulmonary embolus. 2. Atelectasis and trace bilateral pleural effusions. ACT 112: Negative or not required by law. Electronically signed by: Gio Sawant M.D. 10/10/2023 1:46 PM Hip/Pelvis X-Ray 10/13/23 14:04 XR hip 1V RT w pelvis CLINICAL HISTORY: post op TECHNIQUE: 2 view of the right hip and single frontal view of the pelvis were obtained. Comparison: Comparison is made to hip radiograph 10/09/2023 FINDINGS: Patient is status post total hip arthroplasty with expected postsurgical changes including soft tissue swelling and subcutaneous emphysema. IMPRESSION: Expected postoperative appearance status post placement of total hip arthroplasty. ACT 112: Negative or not required by law. Electronically signed by: Gio Sawant M.D. 10/13/2023 3:49 PM Chest X-Ray 10/15/23 08:09 XR chest 1V portable HISTORY: continued O2 needs, ?fluid overload COMPARISON: Chest 10/10/2023. FINDINGS: No pneumothorax. The heart remains enlarged. There are trace bilateral pleural effusions. There is mild central pulmonary vascular congestion without overt edema. This is similar to the prior study. Bibasilar densities also persist. This may represent atelectasis or pneumonia. IMPRESSION: 1. No significant change compared to the prior studies. 2. Cardiomegaly, mild congestive change, trace bilateral pleural effusions persist 3. Bibasilar densities again noted. This may represent atelectasis or pneumonia. ACT 112: Negative or not required by law. Electronically signed by: Markus Gongora M.D. 10/15/2023 9:19 AM Chest X-Ray 10/19/23 10:34 TWO VIEW CHEST CLINICAL HISTORY: Hypoxia. FINDINGS: AP and lateral chest radiographs are compared to study dated 10/15/2023 and correlated with chest CT dated 10/10/2023. The heart is enlarged noting atherosclerotic calcification of the thoracic aorta. There is pulmonary vascular congestion with evidence of interstitial edema. There are layering pleural effusions with dependent consolidation. There is no pneumothorax. The skeletal structures are osteopenic. The bony thorax appears intact. IMPRESSION: 1. Cardiomegaly with evidence of congestive failure and pulmonary edema. 2. Layering pleural effusions with dependent consolidation. ACT 112: Negative or not required by law. Electronically signed by: Néstor Escobar M.D. 10/19/2023 12:05 PM Chest X-Ray 10/20/23 06:00 XR chest 2V PA/lateral HISTORY: f/u pulmonary congestion/edema COMPARISON: Chest 10/19/2013. FINDINGS: No pneumothorax. The heart remains enlarged. Small bilateral pleural effusions and mild pulmonary edema have improved. Bibasilar densities persist. The upper lung zones are clear. No acute fractures. IMPRESSION: 1. Interval improvement in the pulmonary edema and small bilateral pleural effusions. 2. Cardiomegaly, unchanged. 3. Bibasilar densities persist. This favors compressive atelectasis from the pleural effusions. ACT 112: Negative or not required by law. Electronically signed by: Markus Gongora M.D. 10/20/2023 9:28 AM Chest X-Ray 10/21/23 07:00 XR chest 1V portable HISTORY: 88 years-old Female CHF, pulm edema f/u acute shortness of breath with pulmonary edema COMPARISON: 10/20/2023 TECHNIQUE: AP view of the chest FINDINGS: Cardiac silhouette is enlarged. Pulmonary vascular congestion with progressive interstitial coarsening. Small pleural effusions have increased in size with progressive bibasilar opacities. No pneumothorax. Bones appear grossly intact. IMPRESSION: 1. Cardiomegaly with worsening pulmonary edema. 2. Increased size of the pleural effusions with mildly progressed bibasilar opacities. ACT 112: Negative or not required by law. The above report was generated using voice recognition software. It may contain grammatical, syntax or spelling errors. Electronically signed by: Wes Gallagher M.D. 10/21/2023 9:41 AM Chest X-Ray 10/22/23 07:00 SINGLE VIEW CHEST CLINICAL HISTORY: Follow-up congestive heart failure. FINDINGS: An AP, portable, upright chest radiograph is compared to study dated 10/21/2023 and correlated with chest CT dated 10/10/2023. The heart is enlarged noting atherosclerotic calcification of the thoracic aorta. There is mild pulmonary vascular congestion. This has improved from previous. There are small pleural effusions, left larger than right with dependent consolidation. There is no pneumothorax. The skeletal structures are osteopenic. The bony thorax is grossly intact. IMPRESSION: 1. Cardiomegaly with mild pulmonary vascular congestion. This has improved from previous. 2. Left larger than right pleural effusions with dependent consolidation. ACT 112: Negative or not required by law. Electronically signed by: Néstor Escobar M.D. 10/22/2023 7:48 AM Chest X-Ray 10/23/23 07:00 SINGLE VIEW CHEST CLINICAL HISTORY: Follow-up congestive heart failure. FINDINGS: An AP, portable, upright chest radiograph is compared to study dated 10/22/2023 and correlated with chest CT dated 10/10/2023. The heart is enlarged noting atherosclerotic calcification of the thoracic aorta. There is mild pulmonary vascular congestion. There are small pleural effusions, left larger than right with dependent consolidation. There is no pneumothorax. The skeletal structures are osteopenic. The bony thorax is grossly intact. IMPRESSION: 1. Cardiomegaly with mild pulmonary vascular congestion. This is similar to yesterday. 2. Left larger than right pleural effusions with dependent consolidation. ACT 112: Negative or not required by law. Electronically signed by: Néstor Escobar M.D. 10/23/2023 7:47 AM Chest X-Ray 10/24/23 07:00 XR chest 1V portable CLINICAL HISTORY: f/u pulmonary edema/vascular congestion COMPARISON STUDY: Chest CT October 10, 2023. Chest radiograph October 23, 2023. FINDINGS: There is no pneumothorax. Small left and trace right pleural effusions are present. Persistent bibasilar opacities are noted. Cardiomegaly is unchanged. Pulmonary vascular congestion is unchanged. Linear right midlung opacity is also unchanged and favors atelectasis. IMPRESSION: 1. No change in appearance of the chest. Bibasilar opacities which could reflect pneumonia or atelectasis. Radiographic follow-up to ensure resolution is recommended. 2. Cardiomegaly with pulmonary vascular congestion. Small left and trace right pleural effusions. ACT 112: Negative or not required by law. Electronically signed by: Vinicius Brennan M.D. 10/24/2023 7:14 AM ANITHA - No thrombus is detected in L atrial appendage. Mild mitral regurgitation. Hospital Course (1) Closed right hip fracture: Patient sustained a mechanical fall in the late morning on 10/08 while attempting to sit on a chair in her living room, was likely on ground for 24 hours before being found by her daughter and found w/ elevated CK on admission w/ mild rhabdomylosis. Also was hypoxic to the 70s/elevated BNP to 800s on admission on lasix 40mg PO daily which was held due to dehydration/fall/rhabdo on admissoin and suspect given CTA during inpatient stay she may have been having a little CHF exacerbation on admission as well Age-related osteoporotic fracture of the right hip Imaging on admission w/ xray of the right hip/pelvis 10/09 and RIGHT hip fracture. Does have nondisplaced fx base 5th metatarsal as well Vit D low, replacement ordered and continued at ut Orthopedics consulted s/p RIGHT hip hemiarthroplasty with Dr. Christian 10/13. EBL 75cc. Pain control, oxycodone/tylenol effective. Moving her bowels Hgb dropped however no bleeding reported and suspected 2nd to CHF exacerbation (see below, improved since diuresis) Had english placed and removed on 10/19 and developed leukocytosis which prompted repeat UA/cx which showed pansensitive Klebsiella (except intermediate to nitrofurantoin) and received 4 doses IV ceftriaxone but english replaced due to urinary retention and decision to continue at dc and have voiding trial at rehab. PT/OT evals and [facility] arranged at discharge. DVT proph: Eliquis s/p cardioversion while inpatient. ANITHA negative for thrombus. Her flecanide was discontinued and she was placed on Multaq by Dr Holman w/ maintenance of SR on monitor and outpt cards f/u Discussed w/ Prashant Hayes patient's complicated course and diuretic use/oxygen at discharge to titrate back to baseline. (2) (HFpEF) heart failure with preserved ejection fraction: Acute on chronic HFpEF Patient appeared dehydrated on admission despite mild pulmonary edema and small BL pleural effusions on thoracic spine CT BNP 802 on 10/09 on admission . Prior ECHO EF 60-65%, mild concentric LVH Given 40mg lasix IV in the ED , placed on IVF while NPO w/ surgery, also had afib w/ elevated rates and suspect that may have worsened CHF symptoms *note surgery note done until 10/13 and suspect being off her diuretics/IVF likely worsened CHF prior Patient continued w/ hypoxia/O2 use and completed course abx x 5-6 days for possible pneumonia but again, I suspect this was more from volume overload Lasix 20mg IV provided BID but placed on hold for blood pressure however further exam w/ continued congestion CTA negative for PE but noting bilateral effusions/congestion, subsequent w/ layering effusions and increased lasix up to 80mg IV BID (on 40mg PO daily at baseline) and her lisinopril 20mg BID was resumed which had been on hold for about a week Continued fluid restriction at discharge, english in place as above and had good output this morning w/ AM dose of lasix BNP 306--> 299 despite continued lasix 80mg IV BID for past several days Renal function remaining stable/slight elevation w/ significant increased diuretics. Again, updated [facility] provider and discussed w/ supervising provider to continue 80mg PO lasix BID at discharge at least for short term. Would aim for negative balance and may need adjustments pending response. Con metal precision machine assembler repeating BNP in 2-3 days for comparison. Could also consider switching to torsemide vs bumex for better bioavailability pending response Was still on 2L prior to dc but breathing much improved. No cough/fever or further leukocytosis since treating her UTI. Titrate as able. Also did overnight pulse ox on 2L and suspect underlying EDGAR contributing and should have outpt sleep study in f/u with PCP Continued encouragement of incentive spirometer at dc to prevent developing pneumonia (3) UTI (urinary tract infection): suspect UTI cause for leukocytossi 2nd to catheter for surgery, removed as above however concerns w/ leukocytosis/length of catheter placement and repeat UA obtained Urine culture with KLEBSIELLA (sensitive except intermediate to nitrofurantoin) --> got 4 doses Ceftriaxone and per supervising provider no further abx at dc and to monitor for any issues at rehab. Voiding trial to be attempted but if unsuccessful would rec f/u urology (4) Hypoxia: Reportedly hypoxic on arrival. CXR w/o acute finding however did note subsegmental atelectasis and chronic interstitial thickening. Did get IV lasix in ER, but placed on IVF as above CTA on 10/10 w/o evidence for PE but noted atelectasis and trace pleural effusions Completed 6 day course while inpatient last week 10/09 through 10/14 with unasyn and doxycycline however again as above, suspected 2nd to CHF exacerbation given imaging/hypoxia on admission and elevated BNP w/ response to diuretics INCENTIVE SPIROMETER ENCOURAGED, shown how to use 10/23 2L at dc, titrate as able w/ continued diuretics (5) Paroxysmal atrial fibrillation: Flipped to Afib evening of 10/11, rates 100-160s Discussed case with Dr. Bland, cardiology - increased flecainide to 150mg BID initially and continued on metoprolol 100mg daily Eliquis resumed as above, s/p cardioversion 10/[address] Jackson. Rates controlled, in NSR since cardioversion --> per Dr Holman, started Multaq 400mg BID for better rhythm control and has remain SR at present. 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 and prn ativan Family reported worsening anxiety, requested psych consult zoloft increased to 100mg daily clonazepam changed to TID however some confusion .25mg q8h (ativan available prn) mood stable presently (7) Leukocytosis: Patient with WBC of 22 with neutrophil predominance of 19 on admission Febrile overnight 10/09 --> Unasyn and doxycycline - 12/3 PM to 12/8 for 6 days of treatment (was given Zosyn in ER, then abx as outlined) above for possible PNA then UTI from catheter WBC normalized w/ completion of tx for UTI.Blood cx negative x 5 days from admission (8) Troponin level elevated: Suspected Demand ischemia Initial high sen trop elevated at 157 ---> 209 on 2 hour repeat, continued to downtrend, 117.2--> 90.8-- > 79.1 -Initial CK level elevated at 1284 --> 743 (mild rhabdo, 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) Likely due to demand from falling and being on the ground for approximately 24 hours Patient denied chest pain -ECG showed possible RBBB with ST depression in the anterior leads 12/4 Echo: mild LVH, EF 60-65% NO CP REPORTED, REMAINING IN NSR Note hx thalassemia trait (explains chronic microcytosis) -- consider f/u outpt with PCP (9) Hypertension: Stable, hypotensive at times but appears around baseline and volume overloaded as above Continue home metoprolol, mainly for afib and resumed her lisinopril given hx CHF which was held on admit for rhabdo Holding amlodipine at dc while on increased diuretics to prevent worsened hypotension and suspect likely able to be off this medication and limit issues w/ peripheral edema as has not needed for BP control (10) Rhabdomyolysis: Initial CK elevated at 1284 --> 743 Improved - renal function and LFTs WNLs (11) Iron (Fe) deficiency anemia: low iron, thalassemia trait. resumed PO supplementation suspect hgb dilutional from overload, no bleeding reported. stable hgb and improved w/ diuretics/no bleeding reported (12) Major depressive disorder, recurrent, mild: (13) JOSTIN (generalized anxiety disorder): (14) Pulmonary edema: as above, lasix IV continued, serial CXR transitoined to 80mg PO lasix BID at dc and can monitor serial exams/response to diuretics eventual outpt sleep study rec for likely underlying EDGAR but would continue 2L HS (15) Fall: Plan discharged to [facility] for inpatient rehab. Updated daughter Shahnaz per request prior to dc. Transport arranged by for 1600 this afternoon. Updated provider at [facility] Total Time Total Time Spent Total Time Spent (In Minutes): 65 Discharge Plan Discharge Items Patient Disposition: Transfer Inpatient Rehab Fac Reason For Visit: FALL, RIGHT HIP FRACTURE, ELEVATED TROP Discharge Diagnosis: Right hip displaced femoral neck fracture Goals: You have been hospitalized for an urgent problem which required surgery. During your stay at [facility], we have made an effort to correct the problem that brought you to the hospital while keeping you as comfortable as possible. Surgery and medications were used to bring your condition under control and your discharge instructions will include directions for any medications you should take after leaving the hospital. Please make sure to follow the advice of your surgeon regarding follow up with the surgeon and with your primary care provider. Activity: Per Instructions section Non-emergency contact: Primary Care Provider, Surgeon, Member Of Congress and Urologist Call non-emergency contact if: your pain is not controlled, your temperature is above 101.5, your wound has increased redness and your wound has increased drainage Follow-up/Referrals: Olman Vigil MD [Primary Care Provider] - Ryan Jackson MD [Physician] - Eitan Long M.D. [Physician] - Diet: Carb Consistent or DM2 and Heart Healthy Fluids: 1800ml (7 cups) Addtl Attending Provider Instructions: You have been admitted for a fall and sustained a hip fracture which was treated with surgery and you should have follow up with orthopedics this next week. You had elevated heart rate and cardiology was consulted and your FLECAINIDE has been discontinued and you have been started on Multaq TWICE daily to help keep you in normal rhythm and underwent cardioversion. You have been stable from this. You had a english catheter placed and developed a UTI which you received several days IV antibiotics which cultures show are sensitive to. English catheter needed replaced and you should have a voiding trial in the next day or two. You do not need any continued antibiotics at discharge unless you develop symptoms and would recommend having repeat culture obtained. You have required supplemental oxygen and are being discharged on 2 liter and you have evidence for congestion in your lungs which is likely from being volume overloaded from IV fluids and holding your home diuretics which were resumed at higher IV dosing and discussion with supervising provider you are being sent on Lasix 80mg by mouth twice daily for now and they can titrate to maintain a negative balance. These may need increased further but we recommend checking repeat kidney function testing and BNP while on continued diuretics in the next day or two. Ideally you should also be set up for testing for possible underlying sleep apnea. Please follow up with primary care, orthopedics, and cardiology in the next week. Please return to the ER with any fevers/chills, worsening shortness of breath or for uncontrolled pain or any other symptoms concerning for you. It has been a pleasure being a part of the medical team providing for you while you have been in the hospital. Take care! Addtl Space Systems Operations Manager Provider Instructions: Orthopedic-Specific Instructions Things to Watch Out For -Go to the Emergency Room if you have sudden onset of chest pain, shortness of breath, or uncontrollable pain. -Call the orthopedics clinic immediately if you have a sudden increase in the amount of wound drainage or the drainage becomes thick, yellow or green, or foul-smelling. -For routine questions regarding your hip surgery, call the orthopedics clinic at [phone] during regular business hours (8am-5pm). For urgent issues after regular business hours, you may call the clinic to be connected to the on-call physician. Dressings -A special waterproof, silver-impregnated dressing was placed on your hip. Keep this dressing in place for 1 week after surgery. You may shower with the waterproof dressing in place, but do not soak the dressing in the bathtub or pool. -One week after surgery, you may remove the waterproof dressing. You may continue to shower, and let water run BRIEFLY over the incision, but do not soak the incision in the bathtub or pool for 2 weeks. You may also gently clean the incision with mild soap and water; pat the incision dry after cleaning-do not rub the incision. Apply a new dressing daily thereafter. Weight Bearing -You may weight bear as tolerated on your operative leg. Use a walker for support and balance. Total Hip Precautions -Do not cross your legs, flex your hip past 90 degrees, or internally rotate your hip. -Keep the abduction pillow in place when you are in bed for the first 6 weeks after surgery. You may remove it when you are out of bed. -If you hear a clunk and your leg is suddenly much shorter and turned inward compared to your other leg, come to the Emergency Department immediately. Followup -You will need to follow-up with Dr. Long in orthopedic surgery clinic 10- 14 days after surgery. Please call [facility] at [phone] to make an appointment. Pending Studies at Discharge: No Stand-Alone Forms: [facility] Skilled Items Patient informed of condition?: Yes DNR: No Discharge Level of Care: Acute rehab Communicable Disease: No Discharge Prognosis: Stable Lines: None Urinary Catheter: Yes Medications and DC Order Prescriptions: New ferrous sulfate 325 mg (65 mg iron) Tablet,Delayed Release (Dr/Ec) 325 mg PO QAM Qty: 30 0RF oxycodone 5 mg Tablet 5 mg PO Q4H PRN (Reason: pain) Qty: 12 0RF Multaq 400 mg Tablet 400 mg PO BID Qty: 60 0RF cholecalciferol (vitamin D3) 25 mcg (1,000 unit) Capsule 2,000 unit PO QAM Qty: 60 0RF Continued lorazepam 0.5 mg tablet 0.5 mg PO PM PRN (Reason: Insomnia) Eliquis 5 mg tablet 5 mg PO BID Qty: 180 3RF multivitamin Tablet 1 tab PO QAM clonazepam 0.25 mg tablet,disintegrating 0.25 mg PO BID Qty: 60 0RF metoprolol succinate [Toprol XL] 100 mg tablet extended release 24 hr 100 mg PO DAILY pantoprazole 20 mg tablet,delayed release (DR/EC) 20 mg PO BID lisinopril 20 mg tablet 20 mg PO BID loperamide 2 mg Tablet 2 mg PO DIRECTED PRN (Reason: Diarrhea) acetaminophen [Tylenol Extra Strength] 500 mg Tablet 500 mg PO DIRECTED PRN (Reason: ARTHRITIS PAIN) Rx Instructions: PER MED LIST, TAKES 4-5 TIMES DAILY simethicone [Gas-X Extra Strength] 125 mg Tablet,Chewable 125 mg PO DIRECTED PRN (Reason: GAS RELIEF) Refresh Optive 0.5-0.9 % Drops 1 drp OPHTHALMIC (EYE) DIRECTED PRN (Reason: Dry Eyes) Changed furosemide 40 mg tablet 80 mg PO BID Qty: 160 0RF sertraline 50 mg tablet 100 mg PO DAILY Qty: 60 0RF potassium chloride 20 mEq tablet extended release 20 meq PO BID Qty: 60 0RF Held amlodipine [Norvasc] 5 mg Tablet 5 mg PO BID Qty: 60 2RF Hold Instructions: Resume on 11/04/23. holding while on diuretics to prevent hypotension Discontinued flecainide 100 mg tablet 100 mg PO Q12H Qty: 180 Discharge Orders: Discharge Order (Routine); Ordered 10/24/23 Ordered By: Lesly Issa Admission Data Admit Date/Time: 10/09/23 15:52 Attending Provider: Malik Alcantar Admit Provider: Caio Alexandra Primary Care Provider: Olman Vigil Other Providers: Wes Flanagan; Eitan Long; Ryan Jackson; Candido Holman; Robert Elena; J Luis Bañuelos; [facility] Other Interventions: Discharge Summary Assessment (RN) Last Done: 10/24/23 11:16 Supervising Physician Co-Signing Physician Notes During face to face encounter, I obtained a brief physical examination, discussed hospital stay with patient and discharge instructions with patient. I discussed discharge plan of care with YAZMIN Issa. I reviewed above note and agree with it except for the following: Patient admitted for a hip fracture. Patient will be discharged on diuretics acutely for fluid retnetion and DOAC for DVT prophylaxis. Coding Level of Care Code 38624 INP/OBS DISCH >30 MIN Diagnoses Closed right hip fracture S72.001A Encounter type: initial encounter (HFpEF) heart failure with preserved ejection fraction I50.30 UTI (urinary tract infection) N39.0 Hypoxia R09.02 Paroxysmal atrial fibrillation I48.0 Anxiety F41.9 Leukocytosis D72.829 Leukocytosis type: unspecified Troponin level elevated R79.89 Hypertension I10 Rhabdomyolysis M62.82 Encounter type: initial encounter Iron (Fe) deficiency anemia D50.9 Major depressive disorder, recurrent, mild F33.0 JOSTIN (generalized anxiety disorder) F41.1 Pulmonary edema J81.1 Fall W19.XXXA
[2023-10-24] MEDS: cefTRIAXone SODIUM 2,000 MG in DEXTROSE 5 % MINI-B 50 ML IV SCH (12:18)
== END 2023-10-24 16:13 | DRG 521 ==
LOC: ED 12:42 → EDINP 15:52 → SUATTDRO 15:52 → 2N 10-10 16:35
DX: J18.9 Pneumonia, unspecified organism; I48.19 Other persistent atrial fibrillation; I48.0 Paroxysmal atrial fibrillation; Y92.038 Other place in apartment as the place of occurrence of the external cause; Z88.1 Allergy status to other antibiotic agents; Z68.31 Body mass index [BMI] 31.0-31.9, adult; T83.511A Infection and inflammatory reaction due to indwelling urethral catheter, initial encounter; I24.89 Other forms of acute ischemic heart disease; Z91.041 Radiographic dye allergy status; I50.33 Acute on chronic diastolic (congestive) heart failure; M80.051A Age-related osteoporosis with current pathological fracture, right femur, initial encounter for fracture; Z79.01 Long term (current) use of anticoagulants; K21.9 Gastro-esophageal reflux disease without esophagitis; R33.9 Retention of urine, unspecified; F43.0 Acute stress reaction; R09.02 Hypoxemia; E66.2 Morbid (severe) obesity with alveolar hypoventilation; F33.0 Major depressive disorder, recurrent, mild; E86.0 Dehydration; Z88.6 Allergy status to analgesic agent; W07.XXXA Fall from chair, initial encounter; Y99.8 Other external cause status; I11.0 Hypertensive heart disease with heart failure; Y84.6 Urinary catheterization as the cause of abnormal reaction of the patient, or of later complication, without mention of misadventure at the time of the procedure; Z66 Do not resuscitate; F41.1 Generalized anxiety disorder; Y73.1 Therapeutic (nonsurgical) and rehabilitative gastroenterology and urology devices associated with adverse incidents; N39.0 Urinary tract infection, site not specified; M62.82 Rhabdomyolysis; D50.9 Iron deficiency anemia, unspecified; B96.1 Klebsiella pneumoniae [K. pneumoniae] as the cause of diseases classified elsewhere; S92.515A Nondisplaced fracture of proximal phalanx of left lesser toe(s), initial encounter for closed fracture

== ENCOUNTER 2024-09-09 05:16 | Inpatient (IN) ==
--- OUTSIDE RECORDS SUMMARY | 2024-09-09 05:21 | External Medical Summary | Summary of Care ---
Author Name Unknown Organization [facility] Address [address] [facility] [place] [address] Phone [phone] Care Team Providers Care Cardiographer Name Role Phone Olman Vigil MD Primary Care Provider [phone] Reason for Visit * Reason Comments Follow Up Skin check- hx of bc c and scc, no acute concerns today Encounter Details Date Type Department Care Team (Late st Contact Info) Description 07/19/2024 1:40 PM EDT Office Visit Dermatology [facility] [place] [address] [place] [address] Cassi Strong PA-C [address] [facility] [place] [address] Skin exam, screening for cancer*; Skin tumor Allergies Active Allergy Reactions Criticality Noted Date Comments Naproxen 02/23/2016 Rash Metronidazole Hcl Rash 02/13/2013 documented as of this encounter (statuses as of 07/19/2024) Medications Medication Sig Dispensed Refills Start Date End Date Status FLECAINIDE ACETATE 100 MG PO TABS 1 tab every 12 hours Active CENTRUM SILVER PO TABS 1 tab daily A ctive TYLENOL EXTRA STRENGTH 500 MG PO TABS 1 tab 3X daily as needed Active pantoprazole (PROTONIX) 20 MG TBEC 1 [...] the morning and 1 Tablet before bedtime. 03/21/2020 Active lisinopril (PRINIVIL) 20 MG Tablet Take 1 Tablet by mouth in the morning and 1 Tablet before bedtime. 02/29/2020 Active Metoprolol Succinate 100 MG CS24 Take 1 Tab by mouth daily. Active Apixaban 5 MG Oral Tablet Take 1 Tablet by mouth in the morning and 1 Tablet before bedtime. Active clonazePAM 0.25 MG Oral Tablet Disintegrating (KlonoPIN) DISSOLVE 1 TABLET IN MOUTH TWICE A DAY 05/03/2023 Active Sertraline HCl 50 MG Oral Tablet (Zoloft) Take 1 Tablet by mouth at bedtime. 05/02/2023 Active Dronedarone HCl 400 MG Oral Tablet (Multaq) Take 1 Tablet by mouth 2 times a day with morning and evening meals. Active Vitamin D3 50 MCG (2000 UT) Oral Capsule Take 1 Capsule by mouth in the morning. Active Denosumab 60 MG/ML Subcutaneous Solution Prefilled Syringe (We[employer]) Inject 60 mg under the skin once. 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 documented as of this encounter (statuses as of 07/19/2024) Resolved Problems Problem Noted Date Diagnosed Date Resolved Date History of squamous cell carcinoma 02/13/2013 02/07/2018 History of basal cell carcinoma 02/13/2013 02/07/2018 Other seborrheic keratosis 02/13/2013 0 02/07/2018 documented as of this encounter (statuses as of 07/19/2024) Social History Tobacco Use Types Packs/Day Years Used Date Smoking Tobacco: Never Smokeless Tobacco: Never Alcohol Use Standard Drinks/Week Comments Never 0 (1 standard drink = 0.6 oz pur e alcohol) Utilities Answer Date Recorded Do you have trouble paying y our heating, water, or electric bill? (Adult - for ages 18 years and over) Not on file 04/24/2024 Is your family able to pay t he heat, water, or electric bill? (Household - for ages 0-17 years) Not on file 04/24/2024 Does your family have access to good internet? (Household - for ages 0-17 years) Not on file 04/24/2024 Social Connections Answer Date Recorded How often do you feel lonely or isolated from those around you? (Adult - for ages 18 years and over) Not on file 04/24/2024 Sex and Gender Information Value Date Recorded Sex Assigned at Female 07/18/2024 5:53 PM EDT Gender Identity Female 07/18/2024 5:53 PM EDT Sexual Orientation Straight 07/18/2024 5: 53 PM EDT Job Start Date Occupation Industry Not on file Not on file Not on file documented as of this encounter Progress Notes * Cassi Strong PA-C - 07/19/2024 1:18 PM EDT SUBJECTIVE: History of Present Illness: Lizette Lynch is a 89 year old female seen today for follow up of skin check. Date Last Appointment: 06/23/2023 (in office) DERMATOLOGIC HISTORY: Pt has a history of [...] to be at left alar crease) in [place]. Social Hx: Previously lived in [place], lived in [place], was born in [place], [place] REVIEW OF SYSTEMS: SKIN: No other new or changing moles. HEME/LYMPH: No new or enlarging lumps or bumps. MEDICA TIONS: Current Outpatient Medications Medication Sig Dispense Refill Potassium Chloride Mone ER 20 MEQ TBCR Take 1 Tablet by mouth in the morning. 4 amLODIPine (NORVASC) 5 MG Tablet Take 1 Tablet by mouth in the morning and 1 Tablet before bedtime. Metoprolol Succinate 100 MG CS24 Take 1 Tab by mouth daily. Apixaban 5 MG Oral Tablet Take 1 Tablet by mouth in the morning and 1 Tablet before bedtime. Sertraline HCl 50 MG Oral Tablet (Zoloft) Take 1 Tablet by mouth at bedtime. Dronedarone HCl 400 MG Oral Tablet (Multaq) Take 1 Tablet by mouth 2 times a day with morning and evening meals. FLECAINIDE ACETATE 100 MG PO TABS 1 tab every 12 hours CENTRUM SILVER PO TABS 1 tab daily TYLENOL EXTRA STRENGTH 500 MG PO TABS 1 tab 3X daily as needed pantoprazole (PROTONIX) 20 MG TBEC 1 tab 1/2 hour before breakfast 3 LORAzepam (ATIVAN) 0.5 MG Tablet Take 1 Tablet by mouth every 6 hours as needed. 0 furosemide (LASIX) 40 MG Tablet Take 1 Tablet by mouth in the morning. 0 lisinopril (PRINIVIL) 20 MG Tablet Take 1 Tablet by mouth in the morning and 1 Tablet before bedtime. clonazePAM 0.25 MG Oral Tablet Disintegrating (KlonoPIN) DISSOLVE 1 TABLET IN MOUTH TWICE A DAY No current facility-administered medications for this visit. ALLERG IES: Aleve [naproxen] and Flagyl [metronidazole hcl] OBJECTIVE: GEN: Healthy, alert, no distress, appears oriented, pleasant, and cooperative. SKIN: Detailed exam of face including lids and lips completed and are normal except: 1. Scars- throughout 2. A. L upper arm. 5mm shiny papule. Favor BCC. 3. B. R judaism- 6mm shiny pink papule. Favor BCC ASSESS MENT/PLAN: 1. Hx NMSC - no evidence of recurrence Discussed sun protection with patient including proper use of sunscreens and protective clothing. ABCDs explained 2. A. BCC 3. B. BCC. Biopsies of the lesions noted above to establish and confirm diagnosis. The procedures, risks, benefits, alternatives and expected outcomes were discussed with the patient and consent was obtained. Time out called. Patient identified, procedure verified, site identified and verified. Patient and staff present in agreement. Areas prepped with alcohol and anesthetized with 0.5% lidocaine with epinephrine at 1:200,000 concentration. Shave biopsies of lesions performed. 20% AlCl and bandaging applied. Specimens sent to pathology. Patient instructed in routine post-op care. Follow-up: 1 year There were no barriers tolearning and no other pain was related to today's visit. The patient and/or person accompanying patient demonstrates understanding of the visit and treatment. Cassi Strong PA-C 07/19/2024 1:19 PM documented in this encounter Nursing Notes * Shayla [facility] LPN - 07/19/2024 1:20 PM EDT Patient identified by name and date of . Do you have any concerns about pain management for today's visit? No Living Will or Advance Directive for Health Care as noted on problem list. [email or web address] is a way you can talk to your provider online through e-mail. Would you like to sign up? I can activate it for you? ALREADY ACTIVE Chief Complaint Patient presents with Follow Up Skin check- hx of bcc and scc, no acute concerns today documented in this encounter Plan of Treatment Pending Results Name Type Priority Associated Diagnoses Date /Time SURGICAL PATHOLOGY Pathology Routine Skin tumor 07/19/2024 1:32 PM EDT Health Maintenance Due Date Last Done Comments DXA Scan 1935 Depression Screening 1947 DTap/Tdap Vaccines (1 - Tdap) 1954 Zoster Vaccines (1 of 2) 1985 Pneumococcal Vaccine: 65+ Years (1 of 1 - PCV) 2000 COVID-19 Vaccine (3 - 2023-2 5 season) 2024 01/27/2021, 12/30/2020 Influenza Vaccine (FLU shot) (#1) 2024 HPV (Gardasil) Vaccine Aged Out No lo nger eligible based on patient's age to complete this topic Hepatitis B Vaccine Aged Out No longe r eligible based on patient's age to complete this topic MENINGOCOCCAL (MENACTRA/MENVEO) Aged Out No longer eligible b ased on patient's age to complete this topic documented as of this encounter Medical Devices Not on filedocumented as of this encounter Visit Diagnoses Diagnosis Skin exam, screening for cancer- Primary Screening for malignant neoplasm of the skin Skin tumor Neoplasm of uncertain behavior of skin documented in this encounter Care Teams Cardiographer Relationship Specialty Start Date End Date Olman Vigil MD [address] [place] [address] PCP - General Critical Care Medicine 02/23/16 documented as of this encounter
--- OUTSIDE RECORDS SUMMARY | 2024-09-09 05:21 | External Medical Summary ---
Author Name Unknown Address Unknown Organization [id number]:[facility] - [address] [place] [address] Laboratory Report Ordering Provider Test Date Status RENETTA WONG 06/28/2024 08:15:00 Final Observation Date Value Abnormality Reference (Units ) Status TSH 06/28/2024 08:15:00 1.21 0.27-4.20 (uIU/mL) Final Performing Location [facility] - [address] [place] [address]
--- OUTSIDE RECORDS SUMMARY | 2024-09-09 05:21 | External Medical Summary | Summary of Care ---
Author Name Unknown Organization [facility] Address [address] [place] [place] [address] Phone [phone] Care Team Providers Care Surveillance Observer Name Role Phone Olman Vigil MD Primary Care Provider [phone] Reason for Visit * Reason Comments Follow Up Skin check- hx of bc c and scc, no acute concerns today Encounter Details Date Type Department Care Team (Late st Contact Info) Description 07/19/2024 1:40 PM EDT Office Visit Dermatology [facility] [place] [address] [place] [address] Cassi Strong PA-C [address] [facility] [place] [address] Skin exam, screening for cancer*; Skin tumor [...] Denosumab 60 MG/ML Subcutaneous Solution Prefilled Syringe (Fourandhalf) Inject 60 mg under the skin once. [...] as of this encounter Progress Notes * Erick Suárez MD - 07/19/2024 10:43 PM EDT I have reviewed the charting notes and orders and associated images and agree with the assessment and plan of Cassi Strong PA-C I was available for consultation during and after the visit Erick Suárez MD 07/19/2024 10:43 PM * Cassi Strong PA-C - 07/19/2024 1:18 [...] to be at left alar crease) in [place]. Social Hx: Previously lived in [place], lived in [place] for 6 years, was born in [place], [place] REVIEW OF SYSTEMS: SKIN: No other [...] shiny papule. Favor BCC. 3. B. R religious- 6mm shiny pink papule. Favor BCC ASSESS [...] Health Care as noted on problem list. [facility] is a way you can talk to [...] Procedure Name Priority Date/Time Associated Diagnosis Comments DERM IMAGE (SITE) Routine 07/19/2024 Skin tumor documented in this encounter Results * DERM IMAGE (SITE) (07/19/2024) 07/19/2024 Cassi Strong PA-Connie DIGITAL PHOTOGR APHY documented in this encounter Visit Diagnoses Diagnosis Skin exam, screening for cancer- Primary Screening for malignant neoplasm of the skin Skin tumor Neoplasm of uncertain behavior of skin documented in this encounter Care Teams Surveillance Observer Relationship Specialty Start Date End Date Olman Vigil MD [address] [place] [address] PCP - General Critical Care Medicine 02/23/16 documented as of this encounter
--- NOTE | 2024-09-09 05:52 | Emergency Department Note ---
Impression & Plan Atrial fibrillation with rapid ventricular response, Urinary tract infection, Hypokalemia, On apixaban therapy ED Provider Note NAME: HENRY BOOKER AGE: 89 SEX: F : 1935 ARRIVES VIA: Ambulance INFORMANT: Patient ED PROVIDER(S): Jose D Singh MD CHIEF COMPLAINT: Atrial fibrillation with RVR PLAN: Disposition: Admit MEDICAL DECISION MAKING: The patient is a pleasant 89-year-old woman with a past medical history of paroxysmal atrial fibrillation on Eliquis, hypertension, hyperlipidemia, anxiety who presents to the emergency department via EMS for evaluation of atrial fibrillation with RVR in the 120s which she reports she noticed when she woke up early this morning to go to the bathroom and urinate and felt her heart rate fast. Because of this she felt short of breath and attempted to go back to sleep but could not and took her blood pressure but it would not measure on her machine and so she suspected it was high. Because of her symptoms she was concerned and thought it was best to present to the emergency department and called 911. She denies any chest pain. She reports feeling healthy prior today and denies any fevers, chills, cough, congestion, GI or symptoms. She reports her legs are doing well now from an edema standpoint. She denies any recent increased weight gain and this has been stable. On evaluation the patient is no distress, afebrile with heart in the 110s-120s in atrial fibrillation with blood pressure 160s/80s and vital signs otherwise stable. She appears euvolemic to slightly dry. Lungs are clear with normal respiratory effort. EKG demonstrates atrial fibrillation versus atrial flutter with variable AV block Paregoric 121 without overt acute ischemia. Chest x-ray negative for acute cardiopulmonary process per my preliminary independent interpretation. WBC, H/H and platelets within normal limits. Differential does show elevated lymphocytes with blood smear reviewed reflexed and pending. Chemistry without metabolic acidosis. Potassium 3.1 with oral repletion provided. LFTs are unremarkable. High-sensitivity opponent 4.5, within normal limits. BNP was 437, nonspecific and likely rate related stretch due to RVR. Lipase is normal. TSH within normal limits. UA is suspicious for infection with positive nitrates, leukoesterase, WBCs and 3+ bacteria. Treatment was initiated with IV ceftriaxone. Patient was treated with gentle IV fluid hydration and 5 mg of IV Lopressor x 2 heart rate somewhat improved though still maintaining in the 100s- 110s. Patient was ordered for third dose of 5 mg of IV Lopressor and her morning dose of Multaq. However given the patient's persistence of atrial fibrillation with RVR likely provoked by her UTI patient does agree with plan for admission for further management. Case was discussed with NIGEL Noel PAC, with NIGEL Kerr hospitalist who will evaluate the patient for admission. Triage Nursing notes reviewed and agree them. Prior/external medical records reviewed Vital Signs: reviewed Differential diagnosis: Premature contractions, electrolyte abnormality, cardiac dysrhythmia, thyroid dysfunction, pulmonary embolism, infection, gastrointestinal, as well as other pathologies. ER treatment provided: See below. Diagnostics interpreted by me: ECG: Atrial fibrillation vs atrial flutter with variable AVB with RVR, 121 bpm, nonspecific ST and T wave abnormality, no overt ST elevation or depression, QTc 465 QRS 90. Cardiac Monitoring: An order for continuous cardiac monitoring was placed and demonstrated Atrial fibrillation vs atrial flutter with variable AVB with RVR, 121 bpm. Laboratory studies: See below Imaging studies: See below Consultation(s): NIGEL Noel PAC, with NIGEL Kerr hospitalist HPI: The patient is a pleasant 89-year-old woman with a past medical history of paroxysmal atrial fibrillation on Eliquis, hypertension, hyperlipidemia, anxiety who presents to the emergency department via EMS for evaluation of atrial fibrillation with RVR in the 120s which she reports she noticed when she woke up early this morning to go to the bathroom and urinate and felt her heart rate fast. Because of this she felt short of breath and attempted to go back to sleep but could not and took her blood pressure but it would not measure on her machine and so she suspected it was high. Because of her symptoms she was concerned and thought it was best to present to the emergency department and called 911. She denies any chest pain. She reports feeling healthy prior today and denies any fevers, chills, cough, congestion, GI or symptoms. She reports her legs are doing well now from an edema standpoint. She denies any recent increased weight gain and this has been stable. ROS: See above HPI for pertinent positives & negatives. A total of 10 systems reviewed and were otherwise negative. VITALS:See Below PHYSICAL EXAMINATION: GENERAL: Awake, alert, in no distress HENT: Normocephalic, atraumatic. Oropharynx with dry mucous membranes and otherwise unremarkable. EYES: Normal conjunctiva. Sclera non-icteric. NECK: Supple. No nuchal rigidity. FROM. No JVD. RESPIRATORY: Clear to auscultation. CARDIAC: Tachycardic rate, irregular rhythm. Extremities warm and well perfused. Pulses equal. ABDOMEN: Soft, non-distended. No tenderness to palpation. No rebound or guarding. No masses. MUSCULOSKELETAL: Chest examination reveals no tenderness. The back is symmetrical on inspection without obvious abnormality. There is no CVA tenderness to palpation. No joint edema. LOWER EXTREMITIES: Calves are equal size bilaterally and non-tender. No edema. No discoloration. NEURO: Normal sensorium. No sensory or motor deficits noted. SKIN: No rash or jaundice noted. ED COURSE: Critical Care: I have personally spent greater than 35 minutes of critical care time in the direct management of this patient. This includes bedside care, interpretation of diagnostic studies, and testing, discussion with consultants, patient, and family members, and other required patient management activities. This 35 minutes is in excess of all separately billable procedures. 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, recurrent, mild JOSTIN (generalized anxiety disorder) Acute stress disorder Troponin level elevated Rhabdomyolysis Hypoxia Encounter for pre-operative examination Pneumonia Leukocytosis (Acute) Closed right hip fracture (Acute) Fall (HFpEF) heart failure with preserved ejection fraction GERD (gastroesophageal reflux disease) Anxiety Arthritis First degree atrioventricular block by electrocardiogram HBP (high blood pressure) (Acute) Paroxysmal atrial fibrillation (Acute) Chest pain (Acute) Medical History Hypertension Anticoagulant long-term use Chest pain CHF (congestive heart failure) Surgical History History of 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 History of dilatation and curettage x 2 History of hysterectomy with BSO Family History Father , age 60 Colorectal cancer Mother , age 98 Dementia Hypertension Stroke Sister , age 60s Mesothelioma Denies family history of Coronary heart disease AAA (abdominal aortic aneurysm) Social History Smoking Status: Never smoker Second Hand Exposure: No; Do You Dip or Chew Tobacco: No; Hx Alcohol Use: No Hx Substance Use: No Preferred Language: Japanese Communication Ability: Effective Certified Nurse Required: No Beliefs That Will Affect Care: None marital status: Unknown Current Living Situation: Personal Care Facility Current Living Situation Comment: independent living at [facility] current occupational status: 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) Other Information That Helps Us Care for You: No other: 2 daughters Feels Safe at Home: Yes Safety Concerns: Feels Safe At This Time Assistive Devices: Glasses Allergies Allergies Allergy/AdvReac Type Severity Reaction Status Date / Time metronidazole Allergy Intermediate HIVES Verified 09/09/24 10:39 naproxen Allergy Intermediate HIVES Verified 09/09/24 10:39 perflutren [From [employer]] AdvReac Back Pain Verified 09/09/24 10:39 Home Meds Home Medications Medication Instructions Recorded Confirmed multivitamin 1 tab PO QAM 08/27/19 09/09/24 metoprolol succinate 100 mg 100 mg PO DAILY 06/16/21 09/09/24 tablet,extended release 24 hr (Toprol XL) pantoprazole 20 mg tablet,delayed 20 mg PO BID 04/23/23 09/09/24 release acetaminophen 500 mg tablet 500 mg PO DIRECTED PRN 10/09/23 09/09/24 (Tylenol Extra Strength) ARTHRITIS PAIN carboxymethylcellulose 0.5 1 drp ophthalmic (eye) DIRECTED 10/09/23 09/09/24 %-glycerin 0.9 % eye drops PRN Dry Eyes (Refresh Optive) simethicone 125 mg chewable tablet 125 mg PO DIRECTED PRN GAS 10/09/23 09/09/24 (Gas-X Extra Strength) RELIEF denosumab 60 mg/mL subcutaneous 0 mg subcut Q6MO 06/20/24 09/09/24 syringe (Prolia) furosemide 40 mg tablet 40 mg PO DAILY 06/20/24 09/09/24 Previous Rx's Medication Instructions Recorded amlodipine 5 mg tablet (Norvasc) 5 mg PO BID #60 tabs 08/29/19 clonazepam 0.25 mg disintegrating 0.25 mg PO BID #60 tabs 08/29/19 tablet apixaban 5 mg tablet (Eliquis) 5 mg PO BID #180 tabs 07/21/21 cholecalciferol (vitamin D3) 25 2,000 unit PO QAM #60 caps 10/24/23 mcg (1,000 unit) capsule dronedarone 400 mg tablet (Multaq) 400 mg PO BID #60 tabs 10/24/23 potassium chloride 20 mEq 20 meq PO BID #60 tabs 10/24/23 tablet,extended release sertraline 50 mg tablet 100 mg (2 x 50 mg) PO DAILY #60 10/24/23 tabs Results & Data (ED) Vital Signs Vital Signs - 24 hr 09/09/24 05:21 09/09/24 05:29 09/09/24 05:30 Temperature 36.4 C L Temperature Source Oral Pulse Rate 118 H 115 H 124 H Pulse Rate [Apical] Pulse Rate from SpO2 Sensor 115 H Pulse Rhythm Pulse Rhythm [Apical] Pulse Strength [Apical] Respiratory Rate 19 19 Respiratory Effort / Characteristics Non-Labored Respiratory Depth Normal Respiratory Pattern Blood Pressure 166/86 H 166/86 H Blood Pressure [Right Arm] Blood Pressure Mean 112 131 Blood Pressure Mean [Right Arm] Pulse Oximetry 94 94 Oxygen Delivery Method Room Air Room Air Sepsis Recent Fever Within 48 Hours No Sepsis New/Unexplained Change in Mental Status N/A Sepsis Action Taken by Nursing No Action Required 09/09/24 06:18 09/09/24 06:57 09/09/24 06:58 Temperature Temperature Source Pulse Rate 128 H 123 H Pulse Rate [Apical] Pulse Rate from SpO2 Sensor Pulse Rhythm Irregular Pulse Rhythm [Apical] Pulse Strength [Apical] Respiratory Rate 22 Respiratory Effort / Characteristics Respiratory Depth Respiratory Pattern Blood Pressure 137/86 Blood Pressure [Right Arm] 143/82 H Blood Pressure Mean Blood Pressure Mean [Right Arm] 102 Pulse Oximetry 92 Oxygen Delivery Method Room Air Sepsis Recent Fever Within 48 Hours Sepsis New/Unexplained Change in Mental Status Sepsis Action Taken by Nursing 09/09/24 07:00 09/09/24 07:04 09/09/24 07:30 Temperature Temperature Source Pulse Rate 122 H 122 H 116 H Pulse Rate [Apical] Pulse Rate from SpO2 Sensor Pulse Rhythm Pulse Rhythm [Apical] Pulse Strength [Apical] Respiratory Rate Respiratory Effort / Characteristics Respiratory Depth Respiratory Pattern Blood Pressure 133/89 136/67 Blood Pressure [Right Arm] Blood Pressure Mean Blood Pressure Mean [Right Arm] Pulse Oximetry Oxygen Delivery Method Sepsis Recent Fever Within 48 Hours Sepsis New/Unexplained Change in Mental Status Sepsis Action Taken by Nursing 09/09/24 07:43 09/09/24 07:46 09/09/24 08:00 Temperature Temperature Source Pulse Rate 118 H 110 H Pulse Rate [Apical] 115 H Pulse Rate from SpO2 Sensor Pulse Rhythm Pulse Rhythm [Apical] Irregular Pulse Strength [Apical] Normal Respiratory Rate 18 Respiratory Effort / Characteristics Non-Labored Spontaneous Respiratory Depth Normal Respiratory Pattern Regular Blood Pressure 116/79 136/85 Blood Pressure [Right Arm] 128/75 Blood Pressure Mean Blood Pressure Mean [Right Arm] 92 Pulse Oximetry 91 Oxygen Delivery Method Room Air Sepsis Recent Fever Within 48 Hours Sepsis New/Unexplained Change in Mental Status Sepsis Action Taken by Nursing Laboratory Data Attestation: I reviewed the patient's lab results. 09/09/24 05:30 09/09/24 05:30 Lab Results 09/09/24 09/09/24 Range/Units 05:29 05:30 WBC 10.62 (4.8-10.8) K/ul RBC 6.12 H (4.20-5.40) M/uL Hgb 12.5 (12.0-16.0) g/dl Hct 40.8 (37.0-47.0) % MCV 66.7 L (80.0-100.0) fL MCH 20.4 L (25.0-34.0) pg MCHC 30.6 L (32.0-36.0) g/dL RDW Std Deviation 38.0 (36.4-46.3) fL RDW Coeff of Mikayla 17.8 H (11.5-14.5) % Plt Count 210 (130-400) K/uL MPV 10.2 (9.4-12.4) fL Neutrophils % (Manual) 27 % Lymphocytes % (Manual) 40 % Eosinophils % (Manual) 3 % Neutrophils # (Manual) 2.87 (1.40-6.50) K/uL Total Absolute Neuts 2.87 (1.4-6.5) K/uL Lymphocytes # (Manual) 4.25 H (1.2-3.4) K/uL Total Abs Lymphocytes 7.43 H (1.2-3.4) K/uL Eosinophils # (Manual) 0.32 (0-0.50) K/uL Large Granular Lymphs 30 % # Lrg Granular Lymphs 3.19 K/uL Polychromasia 2+ Tear Drop Cells 2+ Ovalocytes 1+ PT 11.0 (9.0-12.0) Seconds INR 1.0 (0.9-1.1) Sodium 143 (136-145) mmol/L Potassium 3.1 L (3.5-5.1) mmol/L Chloride 106 (98-107) mmol/L Carbon Dioxide 24 (21-32) mmol/L Anion Gap 13 H (3-11) BUN 15 (6-23) mg/dl Creatinine 0.79 (0.6-1.2) mg/dl Est Cr Clr Drug Dosing 48.2 ml/min eGFR 71.46 BUN/Creatinine Ratio 19.0 (10-20) Glucose 116 H (70-99(Fasting)) mg/dl Calcium 9.4 (8.6-10.3) mg/dl Phosphorus 2.5 (2.5-4.9) mg/dl Magnesium 2.2 (1.7-2.4) mg/dl Total Bilirubin 1.1 H (0.2-1.0) mg/dl AST 20 (13-39) U/L ALT 11 (7-52) U/L Alkaline Phosphatase 64 (34-104) U/L Troponin I High Sens 4.5 (0-14) pg/ml B-Natriuretic Peptide 437 H (0-100) pg/ml Total Protein 7.7 (6.0-8.3) gm/dl Albumin 4.8 (3.4-5.0) gm/dl Globulin 2.9 (2.5-4.0) gm/dl Albumin/Globulin Ratio 1.7 (0.9-2) Lipase 12 (11-82) U/L TSH 0.991 (0.300-4.500) uIu/ml Urine Color Yellow Urine Appearance Clear (Clear) Urine pH 7.0 (4.5-7.5) Ur Specific [place] 1.020 (1.000-1.030) Urine Protein 1+ H (Negative) Urine Glucose (UA) Negative (Negative) Urine Ketones Negative (Negative) Urine Blood Trace-intact H (Negative) Urine Nitrite Positive A (Negative) Urine Bilirubin Negative (Negative) Urine Urobilinogen Negative (Negative) Ur Leukocyte Esterase 1+ H (Negative) Urine RBC 0-2 (0-2) /hpf Urine WBC 11-20 H (0-5) /hpf Ur Epithelial Cells 11-20 H (0-2) /hpf Urine Bacteria 3+ H (None Seen) Administered Medications Acetaminophen (Acetaminophen 500 Mg Tab) 500 mg PO QID PRN PRN Reason: ARTHRITIS PAIN Stop: 10/09/24 15:56 Last Admin: 09/09/24 19:51 Dose: 500 mg Documented By: HERBER Amlodipine Besylate (Amlodipine Besylate 5 Mg Tab) 5 mg PO BID RAMIRO Stop: 10/09/24 20:59 Last Admin: 09/09/24 20:21 Dose: 5 mg Documented By: HERBER Apixaban (Apixaban 5 Mg Tablet) 5 mg PO BID RAMIRO Stop: 10/09/24 20:59 Last Admin: 09/09/24 20:21 Dose: 5 mg Documented By: HERBER Clonazepam (Clonazepam 0.25 Mg Od Tab) 0.25 mg PO BID RAMIRO Stop: 10/09/24 20:59 Last Admin: 09/09/24 20:21 Dose: 0.25 mg Documented By: HERBER Dronedarone (Dronedarone Hcl 400 Mg Tab) 400 mg PO BID RAMIRO Stop: 10/09/24 20:59 Last Admin: 09/09/24 20:21 Dose: 400 mg Documented By: HERBER Metoprolol Tartrate (Metoprolol Tartrate 50 Mg Tab) 50 mg PO TID RAMIRO Stop: 10/09/24 13:59 Last Admin: 09/09/24 20:21 Dose: 50 mg Documented By: Admin: 09/09/24 14:30 Dose: 50 mg Documented By: KEHINDE Pantoprazole Sodium (Pantoprazole 40 Mg Tab) 20 mg PO BID RAMIRO Stop: 10/09/24 20:59 Last Admin: 09/09/24 20:21 Dose: 20 mg Documented By: HERBER Potassium Chloride (Potassium Chloride Crtab 20 Meq Tabcr) 20 meq PO BID RAMIRO Stop: 10/09/24 20:59 Last Admin: 09/09/24 20:22 Dose: 20 meq Documented By: HERBER Discontinued Medications Dronedarone (Dronedarone Hcl 400 Mg Tab) 400 mg PO NOW STA Stop: 09/09/24 07:24 Last Admin: 09/09/24 08:22 Dose: 400 mg Documented By: HUGO Sodium Chloride (Nss) 500 mls @ 999 mls/hr IV .Q31M ONE Stop: 09/09/24 06:16 Last Infusion: 09/09/24 06:28 Dose: Infused Documented By: Admin: 09/09/24 05:57 Dose: 999 mls/hr Documented By: GOVIND Ceftriaxone Sodium (Rocephin) 2,000 mg in 50 mls @ 100 mls/hr IV NOW STA Stop: 09/09/24 07:22 Last Infusion: 09/09/24 07:44 Dose: Infused Documented By: Admin: 09/09/24 07:01 Dose: 100 mls/hr Documented By: HUGO Metoprolol Tartrate (Metoprolol Tartrate 1 Mg/Ml Vial) 5 mg IV NOW STA Stop: 09/09/24 06:08 Last Admin: 09/09/24 06:18 Dose: 5 mg Documented By: GOVIND Metoprolol Tartrate (Metoprolol Tartrate 1 Mg/Ml Vial) 5 mg IV NOW STA Stop: 09/09/24 06:53 Last Admin: 09/09/24 07:04 Dose: 5 mg Documented By: HUGO Metoprolol Tartrate (Metoprolol Tartrate 1 Mg/Ml Vial) 5 mg IV NOW STA Stop: 09/09/24 07:25 Last Admin: 09/09/24 07:46 Dose: 5 mg Documented By: HUGO Metoprolol Tartrate (Metoprolol Tartrate 50 Mg Tab) 50 mg PO NOW STA Stop: 09/09/24 09:18 Last Admin: 09/09/24 09:37 Dose: 50 mg Documented By: HUGO Potassium Chloride (Potassium Chloride Crtab 20 Meq Tabcr) 40 meq PO NOW STA Stop: 09/09/24 06:07 Last Admin: 09/09/24 06:18 Dose: 40 meq Documented By: GOVIND Imaging Data Radiologist's Impression: Chest X-Ray 09/09/24 05:30 EXAM: XR chest 1V portable CLINICAL HISTORY: AFIB JMF TECHNIQUE: CR chest frontal view. COMPARISON: 10/24/2023 FINDINGS: No gross air-space opacities noted in both lung olmos. Still noted prominent bilateral perihilar vasculature. Left lower zonal linear opacity ( likely an atelectatic band). Limited evaluation of the cardiac size given an AP projection yet stable when compared with previous study. Interval improvement regarding the left pleural effusion, currently noted subtle blunting of the left costophrenic angle suggesting minimal residual. No right pleural effusion. No acute osseous abnormality. IMPRESSION: 1. No gross air-space opacities in both lung olmos. 2. Still noted prominent bilateral perihilar vasculature, likely representing congestion. 3. Interval improvement regarding the left pleural effusion, currently noted subtle blunting of the left costophrenic angle suggesting minimal residual. 4. Prominent cardiac shadow (stable from previous study). Electronically signed by Tiffanie Curry 09-09-2024 07:36 AM Discharge Plan Visit Data Chief Complaint: Arrhythmia/Palpitations Stated Complaint: Afib RVR ED Provider: Jose D Singh Discharge Problem: Atrial fibrillation with rapid ventricular response, Urinary tract infection, Hypokalemia, On apixaban therapy Patient Disposition: Admitted As Inpatient Discharge Instructions Interventions: ED Discharge Assessment Last Done: 09/09/24 10:28 Discharge Problem: Urinary tract infection Qualifiers: Urinary tract infection type: acute cystitis Hematuria presence: without hematuria Qualified Code(s): N30.00 - Acute cystitis without hematuria
[2024-09-09] MEDS: SODIUM CHLORIDE 0.9% 500 ML IV ONE (05:57)
[2024-09-09 06:00] LABS: Albumin Globulin Ratio 1.7 (0.9-2); Albumin Level 4.8 gm/dl (3.4-5.0); Bilirubin,Total 1.1 mg/dl (0.2-1.0); Calcium 9.4 mg/dl (8.6-10.3); Creatinine Clr Calc Pharmacy 48.2 ml/min; Globulin 2.9 gm/dl (2.5-4.0); Magnesium 2.2 mg/dl (1.7-2.4); Phosphorus 2.5 mg/dl (2.5-4.9); Potassium 3.1 mmol/L (3.5-5.1); Total Protein 7.7 gm/dl (6.0-8.3)
[2024-09-09 06:07] LABS: Troponin I High Sensitivity 4.5 pg/ml (0-14)
[2024-09-09 06:16] LABS: Thyroid Stimulating Hormone 0.991 uIu/ml (0.300-4.500)
[2024-09-09] MEDS: POTASSIUM CHLORIDE CRTAB 20 MEQ TABCR PO STA (06:18)
[2024-09-09] MEDS: METOPROLOL TARTRATE 1 MG/ML VIAL IV STA ×4 (06:18→22:39)
[2024-09-09 06:37] LABS: Appearance Urine Clear (Clear); Bilirubin Urine Negative (Negative); Blood Urine Trace-intact (Negative); Color Urine Yellow; Glucose Urine UA Negative (Negative); Ketones Urine Negative (Negative); Leukocyte Esterase Urine 1+ (Negative); Nitrite Urine Positive (Negative); Protein Urine 1+ (Negative); Urobilinogen Urine Negative (Negative)
[2024-09-09 06:44] LABS: ALC (manual) 7.43 K/uL (1.2-3.4); ANC (manual) 2.87 K/uL (1.4-6.5); Eosinophils # (manual) 0.32 K/uL (0-0.50); Eosinophils % (manual) 3 %; Hematocrit (blood only) 40.8 % (37.0-47.0); Hemoglobin 12.5 g/dl (12.0-16.0); Large Granular Lymph # (manua 3.19 K/uL; Large Granular Lymph % (manual) 30 %; Lymphocytes # (manual) 4.25 K/uL (1.2-3.4); Lymphocytes % (manual) 40 %; Mean Corpuscular Hemoglobin 20.4 pg (25.0-34.0); Mean Corpuscular Hgb Conc 30.6 g/dL (32.0-36.0); Mean Corpuscular Volume 66.7 fL (80.0-100.0); Mean Platelet Volume 10.2 fL (9.4-12.4); Neutrophils # (manual) 2.87 K/uL (1.40-6.50); Neutrophils % (manual) 27 %; Ovalocytes 1+; Platelet Count 210 K/uL (130-400); Polychromasia 2+; RDW Coefficient of Variation 17.8 % (11.5-14.5); Red Blood Count 6.12 M/uL (4.20-5.40); Tear Drop Cells 2+; White Blood Count 10.62 K/ul (4.8-10.8)
[2024-09-09 06:49] LABS: Bacteria Urine 3+ (None Seen); RBC Urine 0-2 /hpf (0-2)
[2024-09-09] MEDS: cefTRIAXone SODIUM 2,000 MG/50 ML BAG IV STA (07:01)
--- NOTE | 2024-09-09 07:37 | XRay Report ---
EXAM: XR chest 1V portable CLINICAL HISTORY: AFIB JMF TECHNIQUE: CR chest frontal view. COMPARISON: 10/24/2023 FINDINGS: No gross air-space opacities noted in both lung olmos. Still noted prominent bilateral perihilar vasculature. Left lower zonal linear opacity ( likely an atelectatic band). Limited evaluation of the cardiac size given an AP projection yet stable when compared with previous study. Interval improvement regarding the left pleural effusion, currently noted subtle blunting of the left costophrenic angle suggesting minimal residual. No right pleural effusion. No acute osseous abnormality. IMPRESSION: 1. No gross air-space opacities in both lung olmos. 2. Still noted prominent bilateral perihilar vasculature, likely representing congestion. 3. Interval improvement regarding the left pleural effusion, currently noted subtle blunting of the left costophrenic angle suggesting minimal residual. 4. Prominent cardiac shadow (stable from previous study). Electronically signed by Tiffanie Curry 09-09-2024 07:36 AM
--- NOTE | 2024-09-09 08:08 | History & Physical Report ---
Date of Service September 09, 2024 Assessment & Plan (1) Atrial fibrillation with rapid ventricular response: Plan: H/o PAF on Eliquis, metoprolol, Multaq; Cardiology visit 06/20/[address] Holman - Admit - Provided with metoprolol tartrate IV in ED (50 mg total) - EKG on admission showed A-fib. rate of 121 - telemetry showing HR 100-110s; irregularly irregular - TTE (10/10/2023)- mild concentric LVH, EF 60 to 65%; ANITHA (10/18/2023)- no thrombus in BECKA, mild mitral regurgitation - Pending repeat echo - TSH 0.991 - Mg 2.2, phosphorus 2.5 - Current episode likely 2/2 UTI (see #2) - Anticoagulated with Eliquis 5 mg p.o. twice daily - Rate controlled with metoprolol succinate 100 mg daily, rhythm controlled with dronedarone 400 mg twice daily - Change metoprolol to 50 mg TID - [id number] score 5 = on anticoagulation (Eliquis) - HAS-BLED score 2 - Continue to monitor on telemetry - Cardiology consulted Appreciate cardiology input and recs (2) Urinary tract infection: Plan: Symptoms of dysuria and frequency x 1 to 2 days - H/o Klebsiella on urine culture, no history of Pseudomonas - UA show 1+ protein, trace blood, presence of nitrate, 1+ LE, WBC, 3+ bacteria - Pending cx - Ceftriaxone 1g IV daily; start 09/10 - No CVA tenderness - Zofran 4mg odt q6hr prn N/V (3) (HFpEF) heart failure with preserved ejection fraction: Plan: H/o chronic diastolic heart failure (HFpEF); appearing mildly hypovolemic on exam today, lower extremity edema stable per patient (1+ bilaterally), lungs CTA bilaterally - Dry weight ~ 80kg, current weight 76kg - Daily weights standing - I+Os - Echo as #1; pending repeat - BNP 437 - CXR showed prominent bilateral perihilar vasculature (representing congestion), interval improvement regarding left pleural effusion with subtle blunting of the left costophrenic angle suggesting minimal residual, prominent cardiac shadow (stable) - CBC without leukocytosis - CMP creatinine stable (0.79) anion gap 13, potassium 3.1-> KCl given in ED; on KCl 20 mEq twice daily as outpatient - Repeat BMP in a.m. - Troponin 4.5 - Continue metoprolol succinate extended release 100 mg daily - Not on WILLY inhibitor at baseline - Lasix 40 mg daily; edema stable per patient - SCDs, promote leg elevation (4) Major depressive disorder, recurrent, mild: Plan: Mood stable, per patient - Continue sertraline 100 mg daily - Clonazepam 0.25 mg p.o. twice daily Plan HTN- Norvasc 5 mg twice daily TRAN- Per records; H&H stable at admission; no red blood per patient- CBC a.m. GERD- pantoprazole 20 mg twice daily Dispo: Admit VTE prophylaxis: Eliquis 5 mg twice daily; SCDs Code: Full Admission and Anticipated Discharge Date Admission Date: 09/09/2024 History of Present Illness Chief Complaint: Tachycardia Primary Care Provider: Olman Vigil MD 89-year-old female presenting via EMS secondary to racing heartbeat with SOB at home around 0500. H/o A-fib. Tachycardic and hypertensive on arrival. ED course: CBC- RBC 6.12, MCV 66.7, MCH 20.4, MCHC 30.6; PT/INR WNL; CMP- K 3.1 (KCl given), anion gap 13, creatinine stable 0.79, bilirubin 1.1; magnesium and phosphate WNL; BNP 437, TSH 0.991.; UA revealing evidence of infection with following findings-1+ protein, trace blood, positive nitrate, 1+ LE, WBC, epithelial cells, bacteria 3+.; CXR-no gross airspace opacities, prominent bilateral Prashanth hilar vasculature (representing congestive), improvement regarding left pleural effusion with subtle blunting of the left costophrenic angle, stable but prominent cardiac shadow.; EKG revealing A-fib rate around 120. Provided with Lopressor IV x 3 (15 mg total) as well as out home dose Mu ltaq 400 mg p.o.. Rocephin x 1, IVF for mild hypovolemia suggested by exam. Patient is an 89-year-old female with PMHx PAF (on Eliquis, Multaq, metoprolol, amlodipine), HTN, HLD, TRAN, MDD, JOSTIN, HFpEF, GERD who presents for feeling as though her heart was racing with associated SOB and palpitations. Allergies Allergy/AdvReac Type Severity Reaction Status Date / Time metronidazole Allergy Intermediate HIVES Verified 09/09/24 10:39 naproxen Allergy Intermediate HIVES Verified 09/09/24 10:39 perflutren [From [facility]] AdvReac Back Pain Verified 09/09/24 10:39 Home Medications Medication Instructions Recorded Confirmed Type multivitamin 1 tab PO QAM 08/27/19 09/09/24 History amlodipine 5 mg tablet (Norvasc) 5 mg PO BID #60 tabs 08/29/19 09/09/24 Rx clonazepam 0.25 mg disintegrating 0.25 mg PO BID #60 tabs 08/29/19 09/09/24 Rx tablet metoprolol succinate 100 mg 100 mg PO DAILY 06/16/21 09/09/24 History tablet,extended release 24 hr (Toprol XL) apixaban 5 mg tablet (Eliquis) 5 mg PO BID #180 tabs 07/21/21 09/09/24 Rx pantoprazole 20 mg tablet,delayed 20 mg PO BID 04/23/23 09/09/24 History release acetaminophen 500 mg tablet 500 mg PO DIRECTED PRN 10/09/23 09/09/24 History (Tylenol Extra Strength) ARTHRITIS PAIN carboxymethylcellulose 0.5 1 drp ophthalmic (eye) DIRECTED 10/09/23 09/09/24 History %-glycerin 0.9 % eye drops PRN Dry Eyes (Refresh Optive) simethicone 125 mg chewable tablet 125 mg PO DIRECTED PRN GAS 10/09/23 09/09/24 History (Gas-X Extra Strength) RELIEF cholecalciferol (vitamin D3) 25 2,000 unit PO QAM #60 caps 10/24/23 09/09/24 Rx mcg (1,000 unit) capsule dronedarone 400 mg tablet (Multaq) 400 mg PO BID #60 tabs 10/24/23 09/09/24 Rx potassium chloride 20 mEq 20 meq PO BID #60 tabs 10/24/23 09/09/24 Rx tablet,extended release sertraline 50 mg tablet 100 mg (2 x 50 mg) PO DAILY #60 10/24/23 09/09/24 Rx tabs denosumab 60 mg/mL subcutaneous 0 mg subcut Q6MO 06/20/24 09/09/24 History syringe (Prolia) furosemide 40 mg tablet 40 mg PO DAILY 06/20/24 09/09/24 History Past Med/Surg History Problem List (Updated 09/09/24 @ 20:59 by Jose D Singh MD) On apixaban therapy (Acute) Hypokalemia (Acute) Urinary tract infection (Acute) Atrial fibrillation with rapid ventricular response (Acute) UTI (urinary tract infection) Pulmonary edema 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, recurrent, mild JOSTIN (generalized anxiety disorder) Acute stress disorder Troponin level elevated Rhabdomyolysis Hypoxia Encounter for pre-operative examination Pneumonia Leukocytosis (Acute) Closed right hip fracture (Acute) Fall (HFpEF) heart failure with preserved ejection fraction GERD (gastroesophageal reflux disease) Anxiety Arthritis First degree atrioventricular block by electrocardiogram HBP (high blood pressure) (Acute) Paroxysmal atrial fibrillation (Acute) Chest pain (Acute) Medical History Hypertension Anticoagulant long-term use Chest pain CHF (congestive heart failure) Surgical History History of 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 History of dilatation and curettage x 2 History of hysterectomy with BSO Family History Father , age 60 Colorectal cancer Mother , age 98 Dementia Hypertension Stroke Sister , age 60s Mesothelioma Denies family history of Coronary heart disease AAA (abdominal aortic aneurysm) Social History Smoking Status: Never smoker Second Hand Exposure: No; Do You Dip or Chew Tobacco: No; Hx Alcohol Use: No Hx Substance Use: No Preferred Language: Irish Communication Ability: Effective Electrician Office Required: No Beliefs That Will Affect Care: None marital status: Unknown Current Living Situation: Personal Care Facility Current Living Situation Comment: independent living at 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 Skin: Warm and dry, without rashes or lesions Head: Normocephalic, atraumatic Eyes: PERRL, conjunctivae clear, sclera non-icteric; EOM intact ENT: External ear and ear canal without swelling; nose atraumatic; good dentition, tongue normal appearance Neck: Supple, no LAD; no JVD Cardio: Tachycardic, irregularly irregular rhythm, no M/G/R, S1 and S2 normal Resp: Chest wall symmetric, normal respiratory effort; No respiratory distress, Lungs CTA in all lobes bilaterally, no wheezes, rales, or rhonchi Abdomen: Soft, symmetric, mild tenderness to palpation at lower abdomen; no distention; No masses or hepatosplenomegaly : No CVA tenderness; PureWick in place MSK: No deformities, full ROM throughout; sensation normal to UE/LE; pulses p alpable and equal; 1+ pitting edema. Neuro: Awake, alert; Muscle strength 5/5 bilaterally in UE/LE; Sensation intact bilaterally; CN intact Psych: Appropriate mood and affect; good judgement and insight. Results & Data Results & Data Vital Signs (Past 12 Hours) Vital Signs Temp Pulse Pulse Resp BP BP Pulse Ox 09/09/24 07:46 118 H 116/79 09/09/24 07:43 115 H 18 128/75 91 09/09/24 07:30 116 H 136/67 09/09/24 07:04 122 H 133/89 09/09/24 07:00 122 H 09/09/24 06:58 143/82 H 09/09/24 06:57 123 H 22 92 09/09/24 06:18 128 H 137/86 09/09/24 05:30 124 H 19 166/86 H 94 09/09/24 05:29 36.4 C L 115 H 19 166/86 H 94 09/09/24 05:21 118 H O2 Del Method 09/09/24 07:46 09/09/24 07:43 Room Air 09/09/24 07:30 09/09/24 07:04 09/09/24 07:00 09/09/24 06:58 09/09/24 06:57 Room Air 09/09/24 06:18 09/09/24 05:30 Room Air 09/09/24 05:29 Room Air 09/09/24 05:21 Laboratory Results 09/09/24 05:30 Urine Culture - Pending Urine,Clean Catch 09/09/24 09/09/24 05:30 05:29 WBC 10.62 RBC 6.12 H Hgb 12.5 Hct 40.8 MCV 66.7 L MCH 20.4 L MCHC 30.6 L RDW Std Deviation 38.0 RDW Coeff of Mikayla 17.8 H Plt Count 210 MPV 10.2 Neutrophils % (Manual) 27 Lymphocytes % (Manual) 40 Eosinophils % (Manual) 3 Neutrophils # (Manual) 2.87 Total Absolute Neuts 2.87 Lymphocytes # (Manual) 4.25 H Total Abs Lymphocytes 7.43 H Eosinophils # (Manual) 0.32 Large Granular Lymphs 30 # Lrg Granular Lymphs 3.19 Polychromasia 2+ Tear Drop Cells 2+ Ovalocytes 1+ PT 11.0 INR 1.0 Sodium 143 Potassium 3.1 L Chloride 106 Carbon Dioxide 24 Anion Gap 13 H BUN 15 Creatinine 0.79 Est Cr Clr Drug Dosing 48.2 eGFR 71.46 BUN/Creatinine Ratio 19.0 Glucose 116 H Calcium 9.4 Phosphorus 2.5 Magnesium 2.2 Total Bilirubin 1.1 H AST 20 ALT 11 Alkaline Phosphatase 64 Troponin I High Sens 4.5 B-Natriuretic Peptide 437 H Total Protein 7.7 Albumin 4.8 Globulin 2.9 Albumin/Globulin Ratio 1.7 Lipase 12 TSH 0.991 Urine Color Yellow Urine Appearance Clear Urine pH 7.0 Ur Specific Treece 1.020 Urine Protein 1+ H Urine Glucose (UA) Negative Urine Ketones Negative Urine Blood Trace-intact H Urine Nitrite Positive A Urine Bilirubin Negative Urine Urobilinogen Negative Ur Leukocyte Esterase 1+ H Urine RBC 0-2 Urine WBC 11-20 H Ur Epithelial Cells 11-20 H Urine Bacteria 3+ H Diagnostic Findings Chest X-Ray 09/09/24 05:30 EXAM: XR chest 1V portable CLINICAL HISTORY: AFIB JMF TECHNIQUE: CR chest frontal view. COMPARISON: 10/24/2023 FINDINGS: No gross air-space opacities noted in both lung olmos. Still noted prominent bilateral perihilar vasculature. Left lower zonal linear opacity ( likely an atelectatic band). Limited evaluation of the cardiac size given an AP projection yet stable when compared with previous study. Interval improvement regarding the left pleural effusion, currently noted subtle blunting of the left costophrenic angle suggesting minimal residual. No right pleural effusion. No acute osseous abnormality. IMPRESSION: 1. No gross air-space opacities in both lung olmos. 2. Still noted prominent bilateral perihilar vasculature, likely representing congestion. 3. Interval improvement regarding the left pleural effusion, currently noted subtle blunting of the left costophrenic angle suggesting minimal residual. 4. Prominent cardiac shadow (stable from previous study). Electronically signed by Tiffanie Curry 09-09-2024 07:36 AM Code Status & VTE Plan Code Status Full PG Care Time/CCT Total # of Minutes Spent Total Time Spent with Patient: Total time spent is greater than 50% in coordination of care (as documented) at patient's floor/unit and/or counseling patient: Coding Level of Care Code None Diagnoses Atrial fibrillation with rapid ventricular response I48.91 Urinary tract infection N39.0 (HFpEF) heart failure with preserved ejection fraction I50.30 Major depressive disorder, recurrent, mild F33.0 Time Spent (min) 80
[2024-09-09] MEDS: DRONEDARONE HCL 400 MG TAB PO STA (08:22)
[2024-09-09] MEDS: METOPROLOL TARTRATE 50 MG TAB PO STA (09:37)
[2024-09-09] MEDS ORDERED: MELATONIN 3 MG TAB PO PRN (12:19)
[2024-09-09] MEDS ORDERED: ONDANSETRON 4 MG OD TAB PO PRN (12:19)
[2024-09-09] MEDS ORDERED: POLYETHYLENE (MIRALAX) 17 GM PACK PO PRN (12:19)
[2024-09-09] MEDS: METOPROLOL TARTRATE 50 MG TAB PO SCH (14:30)
[2024-09-09] MEDS ORDERED: ARTIFICIAL TEARS OP PRN (16:28)
--- NOTE | 2024-09-09 17:37 | Electrocardiogram Report ---
Test Reason : Blood Pressure : */* mmHG Vent. Rate : 121 BPM Atrial Rate : * BPM P-R Int : * ms QRS Dur : 90 ms QT Int : 328 ms P-R-T Axes : * -17 -35 degrees QTcB Int : 465 ms Atrial fibrillation with rapid ventricular response Nonspecific ST and T wave abnormality Abnormal ECG When compared with ECG of 28-Dec-2023 10:29, (unconfirmed) Atrial fibrillation has replaced Sinus rhythm Vent. rate has increased by [address] now depressed in Inferior leads Non-specific change in ST segment in Anterior leads Nonspecific T wave abnormality now evident in Anterior leads Confirmed by Eda Leggett (Sergo) on 09/09/2024 5:37:19 PM Referred By: REFERRED SELF Confirmed By: Eda Leggett
--- NOTE | 2024-09-09 18:03 | History & Physical Report ---
Date of Service September 09, 2024 Assessment & Plan (1) Atrial fibrillation with rapid ventricular response: Plan: A. fib RVR in a 89 yo female patient with SOB and H/O PAF Likely due to complicated UTI. Plan is to admit patient and treat underlying cause. In regards to rate control: ,etoprolol 50 mg PO TID will be ordered instead of metoprolol 100 mg PO succinate. Consulted cardio On eliquis. pending echo. Appreciate cardiology input and recs (2) Urinary tract infection: Plan: Complicated UTI Patient with dysuria and frequency. - H/o Klebsiella on previous cultures. Pending culture - UA show 1+ protein, trace blood, presence of nitrate, 1+ LE, WBC, 3+ bacteria -Treat with IV rocephin, - No CVA tenderness - Zofran 4mg odt q6hr prn N/V (3) (HFpEF) heart failure with preserved ejection fraction: Plan: H/o chronic diastolic heart failure (HFpEF); appearing mildly hypovolemic on exam today, lower extremity edema stable per patient (1+ bilaterally), lungs CTA bilaterally - Dry weight ~ 80kg, current weight 76kg - Daily weights standing - I+Os - Echo as #1; pending repeat - BNP 437 - CXR showed prominent bilateral perihilar vasculature (representing congestion), interval improvement regarding left pleural effusion with subtle blunting of the left costophrenic angle suggesting minimal residual, prominent cardiac shadow (stable) - CBC without leukocytosis - CMP creatinine stable (0.79) anion gap 13, potassium 3.1-> KCl given in ED; on KCl 20 mEq twice daily as outpatient - Repeat BMP in a.m. - Troponin 4.5 - Continue metoprolol succinate extended release 100 mg daily - Not on WILLY inhibitor at baseline - Lasix 40 mg daily; edema stable per patient - SCDs, promote leg elevation (4) Major depressive disorder, recurrent, mild: Plan: Mood stable, per patient - Continue sertraline 100 mg daily - Clonazepam 0.25 mg p.o. twice daily Plan HTN- Norvasc 5 mg twice daily GERD- pantoprazole 20 mg twice daily Dispo: Admit VTE prophylaxis: Eliquis 5 mg twice daily; SCDs Code: Full Admission and Anticipated Discharge Date Admission Date: September 09, 2024 History of Present Illness Chief Complaint: SOB Primary Care Provider: Olman Vigil MD 89 yo female arrives to the ED via ambulance due to a SOB which suddenly awoke her at 5:00. She noticed her heart rate was racing. She denies any significant symptms prior to this epiosde. However now that she is in the ED, she notices increased frequency and dysuria. When she arrived to the ED she remained tachycardic. UA: showed bacteria, nitrates. Patient denies any sick contacts, recent travel. ROS noticed below Allergies Allergy/AdvReac Type Severity Reaction Status Date / Time metronidazole Allergy Intermediate HIVES Verified 09/09/24 10:39 naproxen Allergy Intermediate HIVES Verified 09/09/24 10:39 perflutren [From [employer]] AdvReac Back Pain Verified 09/09/24 10:39 Home Medications Medication Instructions Recorded Confirmed Type multivitamin 1 tab PO QAM 08/27/19 09/09/24 History amlodipine 5 mg tablet (Norvasc) 5 mg PO BID #60 tabs 08/29/19 09/09/24 Rx clonazepam 0.25 mg disintegrating 0.25 mg PO BID #60 tabs 08/29/19 09/09/24 Rx tablet metoprolol succinate 100 mg 100 mg PO DAILY 06/16/21 09/09/24 History tablet,extended release 24 hr (Toprol XL) apixaban 5 mg tablet (Eliquis) 5 mg PO BID #180 tabs 07/21/21 09/09/24 Rx pantoprazole 20 mg tablet,delayed 20 mg PO BID 04/23/23 09/09/24 History release acetaminophen 500 mg tablet 500 mg PO DIRECTED PRN 10/09/23 09/09/24 History (Tylenol Extra Strength) ARTHRITIS PAIN carboxymethylcellulose 0.5 1 drp ophthalmic (eye) DIRECTED 10/09/23 09/09/24 History %-glycerin 0.9 % eye drops PRN Dry Eyes (Refresh Optive) simethicone 125 mg chewable tablet 125 mg PO DIRECTED PRN GAS 10/09/23 09/09/24 History (Gas-X Extra Strength) RELIEF cholecalciferol (vitamin D3) 25 2,000 unit PO QAM #60 caps 10/24/23 09/09/24 Rx mcg (1,000 unit) capsule dronedarone 400 mg tablet (Multaq) 400 mg PO BID #60 tabs 10/24/23 09/09/24 Rx potassium chloride 20 mEq 20 meq PO BID #60 tabs 10/24/23 09/09/24 Rx tablet,extended release sertraline 50 mg tablet 100 mg (2 x 50 mg) PO DAILY #60 10/24/23 09/09/24 Rx tabs denosumab 60 mg/mL subcutaneous 0 mg subcut Q6MO 06/20/24 09/09/24 History syringe (Prolia) furosemide 40 mg tablet 40 mg PO DAILY 06/20/24 09/09/24 History Past Med/Surg History Problem List On apixaban therapy (Acute) Hypokalemia (Acute) Urinary tract infection (Acute) Atrial fibrillation with rapid ventricular response (Acute) UTI (urinary tract infection) Pulmonary edema 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, recurrent, mild JOSTIN (generalized anxiety disorder) Acute stress disorder Troponin level elevated Rhabdomyolysis Hypoxia Encounter for pre-operative examination Pneumonia Leukocytosis (Acute) Closed right hip fracture (Acute) Fall (HFpEF) heart failure with preserved ejection fraction GERD (gastroesophageal reflux disease) Anxiety Arthritis First degree atrioventricular block by electrocardiogram HBP (high blood pressure) (Acute) Paroxysmal atrial fibrillation (Acute) Chest pain (Acute) Medical History Hypertension Anticoagulant long-term use Chest pain CHF (congestive heart failure) Surgical History History of 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 History of dilatation and curettage x 2 History of hysterectomy with BSO Family History Father , age 60 Colorectal cancer Mother , age 98 Dementia Hypertension Stroke Sister , age 60s Mesothelioma Denies family history of Coronary heart disease AAA (abdominal aortic aneurysm) Social History Smoking Status: Never smoker Second Hand Exposure: No; Do You Dip or Chew Tobacco: No; Hx Alcohol Use: No Hx Substance Use: No Preferred Language: Serbian Communication Ability: Effective Complaint Analyst Required: No Beliefs That Will Affect Care: None marital status: Unknown Current Living Situation: Personal Care Facility Current Living Situation Comment: independent living at [facility] in [place] current occupational status: 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) Other Information That Helps Us Care for You: No other: 2 daughters Feels Safe at Home: Yes Safety Concerns: Feels Safe At This Time Assistive Devices: Glasses Review of Systems Constitutional: no fever and no body aches Eyes: no blind spots Ear, Nose, Mouth, Throat: no ear pain Respiratory: no cough Cardiovascular: no chest pain Gastrointestinal: no abdominal pain Genitourinary: + dysuria and + urinary frequency Musculoskeletal: no loss of height Integumentary: no rash Neurologic: no gait abnormality Psychiatric: no behavioral changes Endocrine: + fatigue Hematologic / Lymphatic: no easy bleeding Allergy / Immunological: no GI upset with certain foods Physical Exam Constitutional: WD/WN, vitals as above Eyes: PERRL, conjunctivae normal, anicteric sclerae ENMT: external ear and nose normal, oropharynx normal Neck: trachea midline, no thyromegaly Respiratory: normal respiratory effort, lungs clear to auscultation Cardiovascular: RRR, no murmur, no edema Gastrointestinal (Abdomen): normal bowel sounds, soft, nontender, no hepatosplenomegaly Musculoskeletal: no cyanosis or clubbing, extremities motor strength 5/5 Skin: no rashes, warm and dry Neurologic: PERRL, EOMI, accommodation nl, no face palsy, no dysarthria Psychiatric: A+Ox3, euthymic affect Lymphatic: no cervical or axillary lymphadenopathy Results & Data Results & Data Vital Signs (Past 12 Hours) Vital Signs Temp Pulse Pulse Pulse Resp BP BP 09/09/24 16:45 36.6 C 107 H 18 124/68 09/09/24 15:38 36.6 C 107 H 18 124/68 09/09/24 11:51 36.5 C 120 H 16 136/76 09/09/24 10:10 125 H 19 123/88 09/09/24 09:37 115 H 18 115/80 09/09/24 09:31 120 H 09/09/24 08:35 112 H 17 123/71 09/09/24 08:00 110 H 136/85 09/09/24 07:46 118 H 116/79 09/09/24 07:43 115 H 18 128/75 09/09/24 07:30 116 H 136/67 09/09/24 07:04 122 H 133/89 09/09/24 07:00 122 H 09/09/24 06:58 143/82 H 09/09/24 06:57 123 H 22 09/09/24 06:18 128 H 137/86 Pulse Ox O2 Del Method 09/09/24 16:45 93 Room Air 09/09/24 15:38 90 Room Air 09/09/24 11:51 93 Room Air 09/09/24 10:10 92 Room Air 09/09/24 09:37 96 Room Air 09/09/24 09:31 09/09/24 08:35 92 Room Air 09/09/24 08:00 09/09/24 07:46 09/09/24 07:43 91 Room Air 09/09/24 07:30 09/09/24 07:04 09/09/24 07:00 09/09/24 06:58 09/09/24 06:57 92 Room Air 09/09/24 06:18 Code Status & VTE Plan VTE Prophylaxis Plan VTE Prophylaxis will be ordered: Yes PG Care Time/CCT Total # of Minutes Spent Total Time Spent with Patient: Total time spent is greater than 50% in coordination of care (as documented) at patient's floor/unit and/or counseling patient: Coding Level of Care Code 99906 INT INP/OBS CARE 3/75MIN Diagnoses Atrial fibrillation with rapid ventricular response I48.91 Urinary tract infection N39.0 (HFpEF) heart failure with preserved ejection fraction I50.30 Major depressive disorder, recurrent, mild F33.0
[2024-09-09] MEDS: ACETAMINOPHEN 500 MG TAB PO PRN (19:51)
[2024-09-09] MEDS: amLODIPine BESYLATE 5 MG TAB PO SCH (20:21)
[2024-09-09] MEDS: APIXABAN 5 MG TABLET PO SCH (20:21)
[2024-09-09] MEDS: clonazePAM 0.25 MG OD TAB PO SCH (20:21)
[2024-09-09] MEDS: DRONEDARONE HCL 400 MG TAB PO SCH (20:21)
[2024-09-09] MEDS: PANTOprazole 40 MG TAB PO SCH (20:21)
[2024-09-09] MEDS: POTASSIUM CHLORIDE CRTAB 20 MEQ TABCR PO SCH (20:22)
[2024-09-10] MEDS: dilTIAZem HCl 5 MG/ML 5 ML VIAL IV STA (00:21)
[2024-09-10] MEDS: cefTRIAXone SODIUM 1,000 MG/50 ML BAG IV SCH (06:13)
[2024-09-10 06:23] LABS: Hemoglobin 11.8 g/dl (12.0-16.0); Mean Corpuscular Hemoglobin 20.3 pg (25.0-34.0); Mean Corpuscular Hgb Conc 31.1 g/dL (32.0-36.0); Mean Corpuscular Volume 65.5 fL (80.0-100.0); Mean Platelet Volume 10.3 fL (9.4-12.4); Nucleated RBC # (auto) 0.02 K/uL (0.00-0.12); Nucleated RBC % (auto) 0.2 %; Platelet Count 249 K/uL (130-400); RDW Coefficient of Variation 16.8 % (11.5-14.5); White Blood Count 9.71 K/ul (4.8-10.8)
[2024-09-10 06:46] LABS: BUN Creatinine Ratio 15.2 (10-20); Calcium 8.8 mg/dl (8.6-10.3); Creatinine Clr Calc Pharmacy 49.3 ml/min; Potassium 4.4 mmol/L (3.5-5.1)
[2024-09-10] MEDS: CHOLECALCIFEROL 25 MCG (1000 UNITS) TAB PO SCH (09:51)
[2024-09-10] MEDS: MULTIVITAMIN TAB PO SCH (09:52)
[2024-09-10] MEDS: SERTRALINE HCL 100 MG TABLET PO SCH (09:52)
[2024-09-10] MEDS: FUROSEMIDE 40 MG TAB PO SCH (10:18)
--- NOTE | 2024-09-10 10:19 | Cardiology Consultation ---
Date of Consultation September 10, 2024 Assessment & Plan (1) Atrial fibrillation with rapid ventricular response: (2) Paroxysmal atrial fibrillation: (3) (HFpEF) heart failure with preserved ejection fraction: (4) On apixaban therapy: Plan Mrs. Lynch is an 89-year-old female with a history of Paroxysmal Atrial Fibrillation, HFpEF, GERD, Hypertension, and Iron Deficiency Anemia who presented acutely to [facility] via EMS on 09/09/24 after sudden onset Tachycardia with associated Dyspnea and a UTI. Patient knew she went into atrial fibrillation is soon as her heart started racing, and it persisted. She had gotten up in approximately 0500 in the morning of 09/09/2024 to use the restroom, and she immediately noted the onset of palpitations and a fast heart rate. She tried to count her pulse, but was unable to. Upon presentation, EKG confirmed the presence of AFib with RVR, chest x-ray shows a small left pleural effusion, her high sensitivity troponin I level is normal at 4.5 pg/mL, and her BNP is elevated at 437 pg/mL (although she does not have any evidence of heart failure on physical examination). Patient was given IV Lopressor 5 mg x 3 doses in the ER which did improve her rate. Patient is currently in room 202 and she remains in atrial fibrillation with heart rates in the 100-120 bpm range. She has been maintained on her Multaq 400 mg b.i.d., Eliquis 5 mg b.i.d., and her Toprol-XL 100 mg daily has been converted to Lopressor 50 mg t.i.d. in an effort to get her heart rate slowed down. Her Echocardiogram dated 09/09/24 shows normal LV size and systolic function, LVEF 55% to 60%, borderline concentric LVH, woia-ys-thtrvwwt mitral regurgitation, oept-yo-nbbrrfor tricuspid regurgitation, and elevated RVSP of 40 to 50 mmHg. Patient still has a sensation of palpitations and mild dyspnea. Patient has not experienced any angina pectoris, she is not have any overt evidence of heart failure, nor has she had any focal neurologic symptoms suggestive of stroke or mini stroke. Patient has not missed any doses of Eliquis. She is compliant with her medications and has not had any adverse side effects. We discussed her current situation, the ongoing management of her atrial fibrillation, and the importance of long-term anticoagulation. Options are to continue Multaq, Eliquis, Metoprolol, and undergo cardioversion tomorrow morning. We also discussed the possibility of converting her over to Amiodarone. I also discussed this case with Dr. Holman who agreed cardioversion is a very reasonable way to proceed. Her last cardioversion was in October 2023. Recommend the followin. NPO except medications after midnight in preparation of an elective electrical cardioversion tomorrow morning. 2. Cardioversion tomorrow morning. 3. Continue Multaq 400 mg b.i.d.. 4. Continue Eliquis 5 mg b.i.d. without interruption. 5. Continue Lopressor 50 mg t.i.d., convert to Toprol XL 150 mg daily at discharge. 6. Continue Amlodipine 5 mg b.i.d.. Thank you for asking us to see this patient in consultation. We will continue to follow her along while hospitalized and following discharge. History of Present Illness Reason for Consultation: -- Paroxysmal Atrial Fibrillation with RVR. Requesting Physician: Marlyn Gilbert MD Attending Physician: Mejia Bland MD History of Present Illness Mrs. Lynch is an 89-year-old female with a history of Paroxysmal Atrial Fibrillation, HFpEF, GERD, Hypertension, and Iron Deficiency Anemia who presented acutely to [facility] via EMS on 09/09/24 after sudden onset Tachycardia with associated Dyspnea and a UTI. Patient knew she went into atrial fibrillation is soon as her heart started racing, and it persisted. She had gotten up in approximately 0500 in the morning of 09/09/2024 to use the restroom, and she immediately noted the onset of palpitations and a fast heart rate. She tried to count her pulse, but was unable to. On presentation, EKG confirmed the presence of AFib with RVR, chest x-ray shows a small left pleural effusion, her high sensitivity troponin I level is 4.5 pg/mL, and her BNP is elevated at 437 pg/mL (although she is not have any evidence of heart failure on physical examination). Patient was given IV Lopressor 5 mg x 3 doses in the ER which did improve her rate. Patient is currently in room 202 and she remains in atrial fibrillation with heart rates in the 100-120 bpm range. She has been maintained on her Multaq 400 mg b.i.d., Eliquis 5 mg b.i.d., and her Toprol-XL 100 mg daily has been converted to Lopressor 50 mg t.i.d. in an effort to get her heart rate slowed down. Patient still has a sensation of palpitations and mild dyspnea. She denies any chest pain, heaviness, tightness, pressure, or discomfort. She denies any neck, jaw, back, or arm pain. She denies any orthopnea or PND. She has not had any syncope or near-syncope. She has not had any focal neurologic symptoms suggestive of stroke or mini stroke. Patient has not missed any doses of Eliquis. ECHOCARDIOGRAM 09/09/2024: 1. Normal LV size and systolic function, borderline concentric LVH. 2. LVEF 55% to 60%. 3. Grqm-ka-xhezhkcr mitral regurgitation. 4. Aawf-qw-mcnsxylb tricuspid regurgitation. 5. RVSP elevated at 40 to 50 mmHg. Allergies Allergy/AdvReac Type Severity Reaction Status Date / Time metronidazole Allergy Intermediate HIVES Verified 09/09/24 10:39 naproxen Allergy Intermediate HIVES Verified 09/09/24 10:39 perflutren [From Pzoom] AdvReac Back Pain Verified 09/09/24 10:39 Home Medications Medication Instructions Recorded Confirmed Type multivitamin 1 tab PO QAM 08/27/19 09/09/24 History amlodipine 5 mg tablet (Norvasc) 5 mg PO BID #60 tabs 08/29/19 09/09/24 Rx clonazepam 0.25 mg disintegrating 0.25 mg PO BID #60 tabs 08/29/19 09/09/24 Rx tablet metoprolol succinate 100 mg 100 mg PO DAILY 06/16/21 09/09/24 History tablet,extended release 24 hr (Toprol XL) apixaban 5 mg tablet (Eliquis) 5 mg PO BID #180 tabs 07/21/21 09/09/24 Rx pantoprazole 20 mg tablet,delayed 20 mg PO BID 04/23/23 09/09/24 History release acetaminophen 500 mg tablet 500 mg PO DIRECTED PRN 10/09/23 09/09/24 History (Tylenol Extra Strength) ARTHRITIS PAIN carboxymethylcellulose 0.5 1 drp ophthalmic (eye) DIRECTED 10/09/23 09/09/24 History %-glycerin 0.9 % eye drops PRN Dry Eyes (Refresh Optive) simethicone 125 mg chewable tablet 125 mg PO DIRECTED PRN GAS 10/09/23 09/09/24 History (Gas-X Extra Strength) RELIEF cholecalciferol (vitamin D3) 25 2,000 unit PO QAM #60 caps 10/24/23 09/09/24 Rx mcg (1,000 unit) capsule dronedarone 400 mg tablet (Multaq) 400 mg PO BID #60 tabs 10/24/23 09/09/24 Rx potassium chloride 20 mEq 20 meq PO BID #60 tabs 10/24/23 09/09/24 Rx tablet,extended release sertraline 50 mg tablet 100 mg (2 x 50 mg) PO DAILY #60 10/24/23 09/09/24 Rx tabs denosumab 60 mg/mL subcutaneous 0 mg subcut Q6MO 06/20/24 09/09/24 History syringe (Prolia) furosemide 40 mg tablet 40 mg PO DAILY 06/20/24 09/09/24 History Patient History Medical History Hypertension Anticoagulant long-term use Chest pain CHF (congestive heart failure) Surgical History History of 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 History of dilatation and curettage x 2 History of hysterectomy with BSO Family History Father , age 60 Colorectal cancer Mother , age 98 Dementia Hypertension Stroke Sister , age 60s Mesothelioma Denies family history of Coronary heart disease AAA (abdominal aortic aneurysm) Social History Smoking Status: Never smoker Second Hand Exposure: No; Do You Dip or Chew Tobacco: No; Hx Alcohol Use: No Hx Substance Use: No Preferred Language: Upper Sorbian Communication Ability: Effective Banking Management Consulting Manager Required: No Beliefs That Will Affect Care: None marital status: Unknown Current Living Situation: Personal Care Facility Current Living Situation Comment: independent living at [facility] current occupational status: 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 -- As per HPI. Physical Exam Physical Exam: Blood pressure is 110/74 pulse 108 and irregularly irregular GENERAL: Patient in no acute distress. HEENT: Head is atraumatic, normocephalic. EOM's intact. Facies symmetric. No perioral cyanosis. NECK: No JVD. JVP is not elevated. Carotid upstrokes are + 2 bilaterally without bruits. CHEST/LUNGS: Clear to auscultation throughout all lung olmos. No wheezes, rales, or crackles. CVS: S1 and S2 are irregularly irregular and tachycardic with a grade 1/6 apical systolic murmur. No diastolic murmurs. No gallops or rubs. PMI is nondisplaced. No lifts, heaves, or thrills. No abdominal aortic or renal bruits. ABDOMINAL EXAM: Bowel sounds are present. EXTREMITIES: No clubbing or cyanosis. Trace pretibial edema. Limbs appear to be well perfused. NEUROLOGIC EXAM: Patient is awake, alert, and oriented. Pleasant and cooperative. Answers questions appropriately. Speech is clear. SKIP HOIST OPERATOR: -- A-Fib with V rates in the 100 to 120 bpm range. Results & Data Vital Signs (Past 12 Hours) Vital Signs Temp Pulse Pulse Resp BP BP Pulse Ox 09/10/24 07:00 36.5 C 108 H 20 110/74 94 09/10/24 05:09 91 H 94 09/10/24 03:01 36.5 C 78 16 109/68 96 09/10/24 02:05 93 H 09/10/24 00:41 09/10/24 00:38 83 09/10/24 00:15 36.6 C 116 H 16 125/88 94 09/10/24 00:05 109 H 09/09/24 23:00 108 H 115/76 09/09/24 22:39 112 H 120/77 09/09/24 22:37 36.8 C 112 H 16 120/77 91 O2 Del Method O2 Flow Rate 09/10/24 07:00 Room Air 09/10/24 05:09 Nasal Cannula 3 09/10/24 03:01 Nasal Cannula 09/10/24 02:05 09/10/24 00:41 Nasal Cannula 2 09/10/24 00:38 09/10/24 00:15 Nasal Cannula 2 09/10/24 00:05 09/09/24 23:00 09/09/24 22:39 09/09/24 22:37 Nasal Cannula 2 Laboratory Results Laboratory Results - last 24 hr 09/09/24 09/10/24 05:30 05:19 WBC 9.71 RBC 5.80 H Hgb 11.8 L Hct 38.0 MCV 65.5 L MCH 20.3 L MCHC 31.1 L RDW Std Deviation 37.0 RDW Coeff of Mikayla 16.8 H Plt Count 249 MPV 10.3 Absolute Nucleated RBC 0.02 Nucleated RBC % (auto) 0.2 Blood Smear Review Sodium 139 Potassium 4.4 D Chloride 106 Carbon Dioxide 26 Anion Gap 7 BUN 12 Creatinine 0.79 Est Cr Clr Drug Dosing 49.3 eGFR 71.46 BUN/Creatinine Ratio 15.2 Glucose 101 H Calcium 8.8 Diagnostic Findings CXR 09/09/24: 1. No gross air-space opacities in both lung olmos. 2. Still noted prominent bilateral perihilar vasculature, likely representing congestion. 3. Interval improvement regarding the left pleural effusion, currently noted subtle blunting of the left costophrenic angle suggesting minimal residual. 4. Prominent cardiac shadow (stable from previous study). Medications Administered Medication List Acetaminophen (Acetaminophen 500 Mg Tab) 500 mg PO QID PRN PRN Reason: ARTHRITIS PAIN Stop: 10/09/24 15:56 Last Admin: 09/10/24 00:30 Dose: 500 mg Documented By: Admin: 09/09/24 19:51 Dose: 500 mg Documented By: HERBER Amlodipine Besylate (Amlodipine Besylate 5 Mg Tab) 5 mg PO BID RAMIRO Stop: 10/09/24 20:59 Last Admin: 09/10/24 09:52 Dose: 5 mg Documented By: Admin: 09/09/24 20:21 Dose: 5 mg Documented By: HERBER Apixaban (Apixaban 5 Mg Tablet) 5 mg PO BID RAMIRO Stop: 10/09/24 20:59 Last Admin: 11/04/24 09:53 Dose: 5 mg Documented By: Admin: 09/09/24 20:21 Dose: 5 mg Documented By: HERBER Clonazepam (Clonazepam 0.25 Mg Od Tab) 0.25 mg PO BID RAMIRO Stop: 10/09/24 20:59 Last Admin: 09/10/24 10:02 Dose: 0.25 mg Documented By: Admin: 09/09/24 20:21 Dose: 0.25 mg Documented By: HERBER Dronedarone (Dronedarone Hcl 400 Mg Tab) 400 mg PO BID RAMIRO Stop: 10/09/24 20:59 Last Admin: 09/10/24 09:52 Dose: 400 mg Documented By: Admin: 09/09/24 20:21 Dose: 400 mg Documented By: HERBER Furosemide (Furosemide 40 Mg Tab) 40 mg PO DAILY RAMIRO Stop: 10/10/24 08:59 Last Admin: 09/10/24 10:18 Dose: 40 mg Documented By: SCOT Ceftriaxone Sodium (Rocephin) 1,000 mg in 50 mls @ 100 mls/hr IV Q24H RAMIRO Stop: 09/20/24 06:59 Last Infusion: 09/10/24 08:00 Dose: Infused Documented By: Admin: 09/10/24 06:13 Dose: 100 mls/hr Documented By: PAULETTE Metoprolol Tartrate (Metoprolol Tartrate 50 Mg Tab) 50 mg PO TID RAMIRO Stop: 10/09/24 13:59 Last Admin: 09/10/24 09:51 Dose: 50 mg Documented By: Admin: 09/09/24 20:21 Dose: 50 mg Documented By: Admin: 09/09/24 14:30 Dose: 50 mg Documented By: KEHINDE Multivitamins (Multivitamin Tab) 1 tab PO QAM RAMIRO Stop: 10/10/24 08:59 Last Admin: 09/10/24 09:52 Dose: 1 tab Documented By: SCOT Pantoprazole Sodium (Pantoprazole 40 Mg Tab) 20 mg PO BID RAMIRO Stop: 10/09/24 20:59 Last Admin: 09/10/24 09:53 Dose: 20 mg Documented By: Admin: 09/09/24 20:21 Dose: 20 mg Documented By: HERBER Potassium Chloride (Potassium Chloride Crtab 20 Meq Tabcr) 20 meq PO BID RAMIRO Stop: 10/09/24 20:59 Last Admin: 09/10/24 09:53 Dose: 20 meq Documented By: Admin: 09/09/24 20:22 Dose: 20 meq Documented By: HERBER Sertraline HCl (Sertraline Hcl 100 Mg Tablet) 100 mg PO DAILY RAMIRO Stop: 10/10/24 08:59 Last Admin: 09/10/24 09:52 Dose: 100 mg Documented By: SCOT Vitamin D (Cholecalciferol 25 Mcg (1000 Units) Tab) 50 mcg PO QAM RAMIRO Stop: 10/10/24 08:59 Last Admin: 09/10/24 09:51 Dose: 50 mcg Documented By: SCOT Discontinued Medications Diltiazem HCl (Diltiazem Hcl 5 Mg/Ml 5 Ml Vial) 10 mg IV NOW STA Stop: 09/09/24 23:22 Last Admin: 09/10/24 00:21 Dose: 10 mg Documented By: PAULETTE Co-signed By: TERESSA Dronedarone (Dronedarone Hcl 400 Mg Tab) 400 mg PO NOW STA Stop: 09/09/24 07:24 Last Admin: 09/09/24 08:22 Dose: 400 mg Documented By: HUGO Sodium Chloride (Nss) 500 mls @ 999 mls/hr IV .Q31M ONE Stop: 09/09/24 06:16 Last Infusion: 09/09/24 06:28 Dose: Infused Documented By: Admin: 09/09/24 05:57 Dose: 999 mls/hr Documented By: GOVIND Ceftriaxone Sodium (Rocephin) 2,000 mg in 50 mls @ 100 mls/hr IV NOW STA Stop: 09/09/24 07:22 Last Infusion: 09/09/24 07:44 Dose: Infused Documented By: Admin: 09/09/24 07:01 Dose: 100 mls/hr Documented By: HUGO Metoprolol Tartrate (Metoprolol Tartrate 1 Mg/Ml Vial) 5 mg IV NOW STA Stop: 09/09/24 06:08 Last Admin: 09/09/24 06:18 Dose: 5 mg Documented By: GOVIND Metoprolol Tartrate (Metoprolol Tartrate 1 Mg/Ml Vial) 5 mg IV NOW STA Stop: 09/09/24 06:53 Last Admin: 09/09/24 07:04 Dose: 5 mg Documented By: HUGO Metoprolol Tartrate (Metoprolol Tartrate 1 Mg/Ml Vial) 5 mg IV NOW STA Stop: 09/09/24 07:25 Last Admin: 09/09/24 07:46 Dose: 5 mg Documented By: HUGO Metoprolol Tartrate (Metoprolol Tartrate 50 Mg Tab) 50 mg PO NOW STA Stop: 09/09/24 09:18 Last Admin: 09/09/24 09:37 Dose: 50 mg Documented By: HUGO Metoprolol Tartrate (Metoprolol Tartrate 1 Mg/Ml Vial) 5 mg IV NOW STA; Protoco l Stop: 09/09/24 22:25 Last Admin: 09/09/24 22:39 Dose: 5 mg Documented By: HERBER Potassium Chloride (Potassium Chloride Crtab 20 Meq Tabcr) 40 meq PO NOW STA Stop: 09/09/24 06:07 Last Admin: 09/09/24 06:18 Dose: 40 meq Documented By: GOVIND PG Care Time/CCT Total # of Minutes Spent Total Time Spent with Patient: Total time spent is greater than 50% in coordination of care (as documented) at patient's floor/unit and/or counseling patient:42 Coding [place] [address] INT INP/OBS CARE 2/55MIN Patient Type Established History Comprehensive Exam Comprehensive Medical Decision Making Moderate Complexity Diagnoses Atrial fibrillation with rapid ventricular response I48.91 Paroxysmal atrial fibrillation I48.0 Chronic heart failure with preserved ejection fraction I50.32 Heart failure chronicity: chronic On apixaban therapy Z79.01 Time Spent (min) 68 (3) (HFpEF) heart failure with preserved ejection fraction Heart failure chronicity: chronic Qualified Code(s): I50.32 - Chronic diastolic (congestive) heart failure
--- NOTE | 2024-09-10 11:59 | Hospitalist Progress Note ---
Date of Service September 10, 2024 Assessment & Plan (1) Atrial fibrillation with rapid ventricular response: Plan: Presents with rapid atrial fibrillation. Has a history of paroxysmal atrial fibrillation and is on Multaq, apixaban, and metoprolol. She follows with Dr. Holman of [facility] cardiology. Rate control strategy attempts have not worked thus far with increasing metoprolol Echocardiogram here with preserved EF 55-60%, mild to moderate TR and MR, RVSP elevated at 40-50 mmHg Appreciate cardiology consultation-plan for n.p.o. after midnight and cardioversion tomorrow Follow BMP, magnesium and keep electrolytes replete-hypokalemia previously is now improved Continue to follow on telemetry Continue Multaq, metoprolol, apixaban (2) Urinary tract infection: Plan: Presented with dysuria and frequency. UA abnormal. No fevers or CVA tenderness Urine culture with Klebsiella-sensitivities pending Continue ceftriaxone and follow urine cultures (3) (HFpEF) heart failure with preserved ejection fraction: Plan: Chronic HFpEF- Dry weight ~ 80kg, current weight 76kg. Has chronic mild edema. Chest x-ray with some pulmonary vascular congestion and very tiny left pleural effusion but she is asymptomatic Follow daily weights, strict I's and O's, low-sodium diet Restart home Lasix 40 mg daily, continue potassium supplementation Continue blood pressure control with amlodipine, metoprolol (4) Lymphocytosis: Plan: With absolute lymphocytosis of 7300 Peripheral smear without evidence of malignancy Follow CBC in the morning and if lymphocytosis persists, will send out flow cytometry and recommend outpatient follow-up with hematology (5) Major depressive disorder, recurrent, mild: Plan: Mood stable, per patient Continue sertraline 100 mg daily and clonazepam 0.25 mg p.o. twice daily Plan HTN-blood pressures are controlled, continue Norvasc 5 mg twice daily, metoprolol, Lasix GERD-no acute issues, continue PPI DVT prophylaxis-Eliquis Disposition-continued stay in PCU, possible discharge home tomorrow after cardioversion Admission and Anticipated Discharge Date Admission Date: September 09, 2024 Subjective Patient feeling fine, no significant issues. She has not really gotten out of bed and walked around much. Telemetry with atrial fibrillation with rates in the 90s to 120s She is agreeable to cardioversion tomorrow Physical Exam Constitutional: WD/WN, vitals as above Respiratory: normal respiratory effort, lungs clear to auscultation Cardiovascular: Rate/Rhythm: + tachycardic and + irregularly irregular Heart Sounds: no murmur Extremities: + edema (Trace edema legs bilaterally) Gastrointestinal (Abdomen): normal bowel sounds, soft, nontender, no hepatosplenomegaly Psychiatric: Orientation: alert and oriented x 3 Results & Data Results & Data Vital Signs (Past 12 Hours) Vital Signs Temp Pulse Pulse Resp BP Pulse Ox O2 Del Method 09/10/24 11:23 36.5 C 115 H 20 101/64 90 Room Air 09/10/24 07:00 36.5 C 108 H 20 110/74 94 Room Air 09/10/24 05:09 91 H 94 Nasal Cannula 09/10/24 03:01 36.5 C 78 16 109/68 96 Nasal Cannula 09/10/24 02:05 93 H 09/10/24 00:41 Nasal Cannula 09/10/24 00:38 83 09/10/24 00:15 36.6 C 116 H 16 125/88 94 Nasal Cannula 09/10/24 00:05 109 H O2 Flow Rate 09/10/24 11:23 09/10/24 07:00 09/10/24 05:09 3 09/10/24 03:01 09/10/24 02:05 09/10/24 00:41 2 09/10/24 00:38 09/10/24 00:15 2 09/10/24 00:05 Laboratory Results CBC, BMP, LFTs reviewed PG Care Time/CCT Total # of Minutes Spent Total Time Spent with Patient: Total time spent is greater than 50% in coordination of care (as documented) at patient's floor/unit and/or counseling patient: Coding Level of Care Code 91094 SUB INP/OBS CARE 2/35MIN Diagnoses Atrial fibrillation with rapid ventricular response I48.91 Urinary tract infection N30.00 Hematuria presence: without hematuria Urinary tract infection type: acute cystitis Chronic heart failure with preserved ejection fraction I50.32 Heart failure chronicity: chronic Lymphocytosis D72.820 Major depressive disorder, recurrent, mild F33.0 (2) Urinary tract infection Hematuria presence: without hematuria Urinary tract infection type: acute cystitis Qualified Code(s): N30.00 - Acute cystitis without hematuria (3) (HFpEF) heart failure with preserved ejection fraction Heart failure chronicity: chronic Qualified Code(s): I50.32 - Chronic diastolic (congestive) heart failure
[2024-09-11 06:08] LABS: Hematocrit (blood only) 38.6 % (37.0-47.0); Hemoglobin 11.9 g/dl (12.0-16.0); Mean Corpuscular Hgb Conc 30.8 g/dL (32.0-36.0); Mean Platelet Volume 10.1 fL (9.4-12.4); Nucleated RBC # (auto) 0.02 K/uL (0.00-0.12); Nucleated RBC % (auto) 0.2 %; Platelet Count 243 K/uL (130-400); RDW Coefficient of Variation 16.9 % (11.5-14.5); RDW Standard Deviation 36.4 fL (36.4-46.3); Red Blood Count 5.94 M/uL (4.20-5.40); White Blood Count 8.84 K/ul (4.8-10.8)
[2024-09-11 06:26] LABS: Albumin Level 4.1 gm/dl (3.4-5.0); BUN Creatinine Ratio 18.8 (10-20); Bilirubin Direct 0.1 mg/dl (0-0.2); Calcium 8.9 mg/dl (8.6-10.3); Creatinine Clr Calc Pharmacy 48.7 ml/min; Magnesium 2.2 mg/dl (1.7-2.4); Potassium 4.5 mmol/L (3.5-5.1); Total Protein 6.5 gm/dl (6.0-8.3)
[2024-09-11 06:44] LABS: Ferritin 193.9 ng/ml (8-388)
[2024-09-11 07:29] LABS: Basophils # (auto) 0.07 K/uL (0.00-0.20); Basophils % (auto) 0.8 %; Eosinophils # (auto) 0.33 K/uL (0.00-0.50); Eosinophils % (auto) 3.7 %; Immature Granulocytes # (auto) 0.02 K/uL (0.01-0.20); Immature Granulocytes % (auto) 0.2 %; Lymphocytes # (auto) 3.33 K/uL (1.20-3.40); Lymphocytes % (auto) 37.6 %; Monocytes # (auto) 0.81 K/uL (0.11-0.59); Monocytes % (auto) 9.2 %; Neutrophils # (auto) 4.29 K/uL (1.40-6.50); Neutrophils % (auto) 48.5 %
[2024-09-11] MEDS: FAMOTIDINE 20MG IV PUSH 20 MG/5 ML SYR IV STA (12:23)
--- NOTE | 2024-09-11 12:56 | Anesthesiology Consultation ---
Date of Service September 11, 2024 Assessment & Plan Chart Review Chart Review: Acceptable Risk for Surgery and Patient NOT seen in Pre Admission Testing Consults Requested none ASA ASA4 Proposed Anesthesia Anesthesia Type: General History Surgery Operation Date: 09/11/24 13:00 Proposed Procedures p Cardiac Cath Procedure - Mejia Bland MD Height/Weight Height: 5 ft 4 in Weight: 79.6 kg Allergies Allergy/AdvReac Type Severity Reaction Status Date / Time metronidazole Allergy Intermediate HIVES Verified 09/09/24 10:39 naproxen Allergy Intermediate HIVES Verified 09/09/24 10:39 perflutren [From [employer]] AdvReac Back Pain Verified 09/09/24 10:39 Medications Home Medications Medication Instructions Recorded Confirmed Last Taken multivitamin 1 tab PO QAM 08/27/19 09/09/24 10/07/23 amlodipine 5 mg tablet (Norvasc) 5 mg PO BID #60 tabs 08/29/19 09/09/24 10/07/23 clonazepam 0.25 mg disintegrating 0.25 mg PO BID #60 tabs 08/29/19 09/09/24 10/07/23 tablet metoprolol succinate 100 mg 100 mg PO DAILY 06/16/21 09/09/24 09/09/24 tablet,extended release 24 hr (Toprol XL) apixaban 5 mg tablet (Eliquis) 5 mg PO BID #180 tabs 07/21/21 09/09/24 10/07/23 pantoprazole 20 mg tablet,delayed 20 mg PO BID 04/23/23 09/09/24 10/07/23 release acetaminophen 500 mg tablet 500 mg PO DIRECTED PRN 10/09/23 09/09/24 10/07/23 (Tylenol Extra Strength) ARTHRITIS PAIN carboxymethylcellulose 0.5 1 drp ophthalmic (eye) DIRECTED 10/09/23 09/09/24 Unknown %-glycerin 0.9 % eye drops PRN Dry Eyes (Refresh Optive) simethicone 125 mg chewable tablet 125 mg PO DIRECTED PRN GAS 10/09/23 09/09/24 Unknown (Gas-X Extra Strength) RELIEF cholecalciferol (vitamin D3) 25 2,000 unit PO QAM #60 caps 10/24/23 09/09/24 Unknown mcg (1,000 unit) capsule dronedarone 400 mg tablet (Multaq) 400 mg PO BID #60 tabs 10/24/23 09/09/24 09/09/24 potassium chloride 20 mEq 20 meq PO BID #60 tabs 10/24/23 09/09/24 09/09/24 tablet,extended release sertraline 50 mg tablet 100 mg (2 x 50 mg) PO DAILY #60 10/24/23 09/09/24 10/07/23 tabs denosumab 60 mg/mL subcutaneous 0 mg subcut Q6MO 06/20/24 09/09/24 12/07/23 syringe (Prolia) furosemide 40 mg tablet 40 mg PO DAILY 06/20/24 09/09/24 Unknown Active Medications Generic Name Dose Route Start Last Admin Trade Name Freq PRN Reason Stop Dose Admin Acetaminophen 500 mg 09/09/24 15:57 09/11/24 12:27 Acetaminophen 500 Mg Tab PO 10/09/24 15:56 500 mg QID PRN Administration ARTHRITIS PAIN Amlodipine Besylate 5 mg 09/09/24 21:00 09/11/24 08:33 Amlodipine Besylate 5 Mg Tab PO 10/09/24 20:59 5 mg BID RAMIRO Administration Apixaban 5 mg 09/09/24 21:00 09/11/24 08:33 Apixaban 5 Mg Tablet PO 10/09/24 20:59 5 mg BID RAMIRO Administration Clonazepam 0.25 mg 09/09/24 21:00 09/11/24 08:34 Clonazepam 0.25 Mg Od Tab PO 10/09/24 20:59 0.25 mg BID RAMIRO Administration Dronedarone 400 mg 09/09/24 21:00 09/10/24 20:54 Dronedarone Hcl 400 Mg Tab PO 10/09/24 20:59 400 mg BID RAMIRO Administration Furosemide 40 mg 09/10/24 09:00 09/11/24 08:34 Furosemide 40 Mg Tab PO 10/10/24 08:59 40 mg DAILY RAMIRO Administration Ceftriaxone Sodium 1,000 mg in 50 mls @ 100 mls/hr 09/10/24 07:00 09/11/24 08:18 Rocephin IV 09/20/24 06:59 100 mls/hr Q24H RAMIRO Administration Metoprolol Tartrate 50 mg 09/09/24 14:00 09/11/24 08:34 Metoprolol Tartrate 50 Mg Tab PO 10/09/24 13:59 50 mg TID RAMIRO Administration Multivitamins 1 tab 09/10/24 09:00 09/11/24 08:34 Multivitamin Tab PO 10/10/24 08:59 1 tab QAM RAMIRO Administration Potassium Chloride 20 meq 09/09/24 21:00 09/11/24 08:36 Potassium Chloride Crtab 20 Meq Tabcr PO 10/09/24 20:59 20 meq BID RAMIRO Administration Sertraline HCl 100 mg 09/10/24 09:00 09/11/24 08:37 Sertraline Hcl 100 Mg Tablet PO 10/10/24 08:59 100 mg DAILY RAMIRO Administration Vitamin D 50 mcg 09/10/24 09:00 09/11/24 08:33 Cholecalciferol 25 Mcg (1000 Units) Tab PO 10/10/24 08:59 50 mcg QAM RAMIRO Administration Past Medical History Medical History Hypertension Anticoagulant long-term use Chest pain CHF (congestive heart failure) ASCVD Exercise / Class Metabolic Activity III < 4 Walking/Shop/Light housework Past Family History Family History Father , age 60 Colorectal cancer Mother , age 98 Dementia Hypertension Stroke Sister , age 60s Mesothelioma Denies family history of Coronary heart disease AAA (abdominal aortic aneurysm) Past Surgical History Surgical History History of 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 History of dilatation and curettage x 2 History of hysterectomy with BSO Past Anesthesia History No Hx of Anesthesia Complications and No Family Hx of Anesthesia Complications History of PONV No Hx of PONV and No Hx of Motion Sickness Social History Smoking Status: Never smoker Do You Dip or Chew Tobacco: No Hx Alcohol Use: No Alcohol type: wine alcohol intake frequency: holidays/special occasions only Hx Substance Use: No substance use type: does not use Physical Exam Vital Signs Last Vital Signs Temp 36.7 C 09/11/24 11:36 Pulse 118 H 09/11/24 11:36 Resp 18 09/11/24 11:36 BP 108/49 L 09/11/24 11:36 Pulse Ox 92 09/11/24 11:36 O2 Del Method Room Air 09/11/24 11:36 O2 Flow Rate 3 09/10/24 05:09 Testing Laboratory Results 09/11/24 05:36 09/11/24 05:36 PT 11.0 Seconds (9.0-12.0) 09/09/24 05:29 INR 1.0 (0.9-1.1) 09/09/24 05:29 Urine Color Yellow 09/09/24 05:30 Urine Appearance Clear (Clear) 09/09/24 05:30 Urine pH 7.0 (4.5-7.5) 09/09/24 05:30 Ur Specific [place] 1.020 (1.000-1.030) 09/09/24 05:30 Urine Protein 1+ (Negative) H 09/09/24 05:30 Urine Glucose (UA) Negative (Negative) 09/09/24 05:30 Urine Ketones Negative (Negative) 09/09/24 05:30 Urine Nitrite Positive (Negative) A 09/09/24 05:30 Ur Leukocyte Esterase 1+ (Negative) H 09/09/24 05:30 Urine RBC 0-2 /hpf (0-2) 09/09/24 05:30 Urine WBC 11-20 /hpf (0-5) H 09/09/24 05:30 Ur Epithelial Cells 11-20 /hpf (0-2) H 09/09/24 05:30 09/09/24 05:30 Urine Culture - Final Urine,Clean Catch Klebsiella pneumoniae Klebsiella pneumoniae#2 Electrocardiogram Date: 09/09/24 Findings: + AFIB @ (@ 121 w/RVR;NS ST & T wave abnl) Chest X-Ray Date: 09/09/24 Findings: + pulmonary vascular congestion Echocardiogram Date: 09/09/24 EF: 55% LV Function: normal RWMA: + none Valvular Disease: + MR (mod.) TR-mod.
[2024-09-11] MEDS ORDERED: ATROPINE SULFATE 0.1 MG/ML 10ML SYR IV PRN (13:27)
[2024-09-11] MEDS ORDERED: ePHEDrine sulfate 50 MG/ML AMP IV PRN (13:27)
[2024-09-11 13:35] VITALS: TEMP 97.5
--- NOTE | 2024-09-11 13:38 | Anesthesiology Progress Note ---
Date of Service September 11, 2024 Anesthesia Post Procedure Vital Signs Vital Signs: Temp Pulse Pulse Pulse Resp BP BP 09/11/24 13:28 36.4 C L 62 14 104/51 L 09/11/24 13:15 138 H 18 135/85 09/11/24 12:55 116 H 18 134/100 09/11/24 11:36 36.7 C 118 H 18 108/49 L 09/11/24 08:02 36.8 C 122 H 18 137/87 09/11/24 06:36 131/81 09/11/24 03:19 36.8 C 112 H 18 147/93 H 09/11/24 00:48 117 H 09/11/24 00:47 93 H 09/10/24 22:43 37.0 C 103 H 18 127/83 09/10/24 20:30 09/10/24 19:35 37.5 C 106 H 18 134/84 09/10/24 14:47 36.8 C 102 H 20 122/80 09/10/24 14:07 105 H Pulse Ox O2 Del Method O2 Flow Rate 09/11/24 13:28 98 Room Air 09/11/24 13:15 97 Oxymask 5 09/11/24 12:55 90 Room Air 09/11/24 11:36 92 Room Air 09/11/24 08:02 98 Room Air 09/11/24 06:36 09/11/24 03:19 91 Room Air 09/11/24 00:48 09/11/24 00:47 09/10/24 22:43 91 Room Air 09/10/24 20:30 Room Air 09/10/24 19:35 92 Room Air 09/10/24 14:47 91 Room Air 09/10/24 14:07 Pain Intensity Bilateral Head: Pain Intensity: 6 Transfer of Care Handoff Completed per policy Notes Mental Status: alert / awake / arousable Patient Amnestic to Procedure: Yes Nausea / Vomiting: adequately controlled Pain: adequately controlled Airway Patency, RR, SpO2: stable & adequate BP & HR: stable & adequate Hydration State: stable & adequate Anesthetic Complications: no major complications apparent
--- NOTE | 2024-09-11 13:41 | Cardioversion ---
Date of Service September 11, 2024 PG Electrical Cardioversion Rp Electrical Cardioversion Report Date of procedure: September 11, 2024 Procedure: Elective, electrical cardioversion Indication: Refractory atrial fibrillation Protocol: After informed consent and a "timeout" performed, the patient was sedated smoothly by anesthesia. The patient was monitored continuously by telemetry, end tidal CO2, pulse oximetry, and sphygmomanometry. Once anesthetized, the patient was given 100 J of synchronized biphasic energy via hands-off paddles. This successfully converted the patient to normal sinus rhythm. There were no complications. The patient tolerated the procedure well. Following the cardioversion, the patient was awake, alert, conversant, and without complaints. Conclusions: 1. Successful cardioversion to normal sinus rhythm 2. No complications Coding Level of Care Code 02787 CARDIOVERSION, ELECTIVE Additional Codes Electrical Cardioversion Report ([id number])
[2024-09-11] MEDS: PROPOFOL IV EMULSION 10 MG/ML 20 ML VIAL IV ONE (14:23)
[2024-09-11 14:44] VITALS: BP 126/53; PULSE 60; RESP 20; O2SAT 93
--- NOTE | 2024-09-11 14:47 | Discharge Summary ---
Discharge Summary Date of Service September 11, 2024 Principal Dx & Hospital Course #1 = Principal Diagnosis (1) Atrial fibrillation with rapid ventricular response: Presents with rapid atrial fibrillation. Has a history of paroxysmal atrial fibrillation and is on Multaq, apixaban, and metoprolol. She follows with Dr. Holman of [facility] cardiology. Rate control strategy attempts have not worked thus far with increasing metoprolol dose to tartrate 50 mg po tid Echocardiogram here with preserved EF 55-60%, mild to moderate TR and MR, RVSP elevated at 40-50 mmHg Appreciate cardiology consultation-performed cardioversion and was back in a NSR Continue Multaq, home dose of metoprolol, apixaban Stable for dc to home and f/u as outpt with Cardiology (2) Urinary tract infection: Presented with dysuria and frequency. UA abnormal. No fevers or CVA tenderness Urine culture with Klebsiella-resistant to nitrofurantoin Received 2 doses of ceftriaxone and dc to home on cefuroxime 500mg po bid x 5 more days (3) (HFpEF) heart failure with preserved ejection fraction: Chronic HFpEF- Dry weight ~ 80kg, current weight 76kg. Has chronic mild edema. Chest x-ray with some pulmonary vascular congestion and very tiny left pleural effusion but she is asymptomatic Appears euvolemic continue daily weights at home, low-sodium diet Continue home Lasix 40 mg daily, continue potassium supplementation Continue blood pressure control with amlodipine, metoprolol (4) Lymphocytosis: With absolute lymphocytosis of 7300 on admission, resoled on day of discharge Peripheral smear without evidence of malignancy Recommend repeat CBC with diff again with PCP in a few weeks and if absolute lymphocytosis persists, would refer to Hematology (5) Major depressive disorder, recurrent, mild: Mood stable, per patient Continue sertraline 100 mg daily and clonazepam 0.25 mg p.o. twice daily Plan HTN-blood pressures are controlled, continue Norvasc 5 mg twice daily, metoprolol, Lasix GERD-no acute issues, continue PPI DVT prophylaxis-Eliquis Disposition-dc to home today Discussed care with Cardiology on day of discharge Notes For Next Care Provider Check CBC in 2-3 weeks Medication Changes From Visit Added cefuroxime 500mg p bid x 5 more days for UTI Admission HPI Per Admitting Provider 89 yo female arrives to the ED via ambulance due to a SOB which suddenly awoke her at 5:00. She noticed her heart rate was racing. She denies any significant symptms prior to this epiosde. However now that she is in the ED, she notices increased frequency and dysuria. When she arrived to the ED she remained tachycardic. UA: showed bacteria, nitrates. Patient denies any sick contacts, recent travel. ROS noticed below Discharge Exam Constitutional WD/WN, vitals as above Respiratory normal respiratory effort, lungs clear to auscultation Cardiovascular Rate/Rhythm: + tachycardic and + irregularly irregular Heart Sounds: no murmur Extremities: + edema (Trace edema legs bilaterally) Gastrointestinal (Abdomen) normal bowel sounds, soft, nontender, no hepatosplenomegaly Psychiatric Orientation: alert and oriented x 3 Discharge Plan Discharge Items Patient Disposition: Home - Self-Care Reason For Visit: Afib RVR, UTI Discharge Diagnosis: Rapid atrial fibrillation UTI Activity: Resume your previous activity Non-emergency contact: Primary Care Provider and Transition Teacher Call non-emergency contact if: you have any medication questions and your symptoms worsen Follow-up/Referrals: Candido Holman MD [Physician] - (Follow up within 2 weeks) Olman Vigil MD [Primary Care Provider] - (Follow up within 1-2 weeks) Diet: Heart Healthy Addtl Attending Provider Instructions: You were admitted with rapid atrial fibrillation and had an electric cardioversion to shock your heart back to a normal heart rhythm. This was successful. You can stay on your same/usual dose of metoprolol and definitely continue to take your Eliquis. You also had a UTI. Please finish out 5 more days of the oral antibiotic called cefuroxime twice a day for this. Pending Studies at Discharge: No Stand-Alone Forms: My [facility] Medications and DC Order Prescriptions: New cefuroxime axetil 500 mg tablet 500 mg PO BID Qty: 10 0RF Continued Eliquis 5 mg tablet 5 mg PO BID Qty: 180 3RF furosemide 40 mg tablet 40 mg PO DAILY Prolia 60 mg/mL syringe 0 mg subcut Q6MO Rx Instructions: dose unknown multivitamin Tablet 1 tab PO QAM amlodipine [Norvasc] 5 mg Tablet 5 mg PO BID Qty: 60 2RF Hold Instructions: Resume on 11/04/23. holding while on diuretics to prevent hypotension clonazepam 0.25 mg tablet,disintegrating 0.25 mg PO BID Qty: 60 0RF metoprolol succinate [Toprol XL] 100 mg tablet extended release 24 hr 100 mg PO DAILY pantoprazole 20 mg tablet,delayed release (DR/EC) 20 mg PO BID acetaminophen [Tylenol Extra Strength] 500 mg Tablet 500 mg PO DIRECTED PRN (Reason: ARTHRITIS PAIN) Rx Instructions: PER MED LIST, TAKES 4-5 TIMES DAILY simethicone [Gas-X Extra Strength] 125 mg Tablet,Chewable 125 mg PO DIRECTED PRN (Reason: GAS RELIEF) Refresh Optive 0.5-0.9 % Drops 1 drp OPHTHALMIC (EYE) DIRECTED PRN (Reason: Dry Eyes) Multaq 400 mg Tablet 400 mg PO BID Qty: 60 0RF cholecalciferol (vitamin D3) 25 mcg (1,000 unit) Capsule 2,000 unit PO QAM Qty: 60 0RF sertraline 50 mg tablet 100 mg PO DAILY Qty: 60 0RF potassium chloride 20 mEq tablet extended release 20 meq PO BID Qty: 60 0RF Discharge Orders: Discharge Order (Routine); Ordered 09/11/24 Ordered By: Marlyn Gilbert Admission Data Admit Date/Time: 09/09/24 08:30 Attending Provider: Marlyn Gilbert Admit Provider: Malik Alcantar Primary Care Provider: Olman Vigil Other Providers: Malik Alcantar; Jose Manuel Farfan; Ebenezer Antoine; Mejia Bland; Ortiz Lai; Candido Holman; Lang Glynn Jr; Mika Katz; Samina Gonzales; Mavis Segovia; Ryan Christy; Ryan Jackson; Tonny Ayon; Adia Nieto; Bryce Henriquez; India Gunn; Enrrique Starks; Bryce Mccord; Calos Shanks; Roshan Gray; Alisia Sands; Zofia Nava; Yamilet Johnson; Maday Marroquin; Brody Jiménez; Natanael Sahni; Bryce Scott; Markus Pride; Georgina Pride; Maciel Young; Adia Vasquez; Lam Tucker; Robert Castano; Karthik Amanda; Kaycee Casrto; Roderick Duong A; Lesly Duong; Niraj Walton; Nasrin Brandon; Gregg Lopez; Elizabeth Mccann; Nellie Peña; Wai Penny; Shayla Bettencourt; Barbara Zamudio; Britt Barnett; Glory Negron; Alex Negron V; Tristan Toledo; Zofia Saldivar; Nilson Rodriguez; Ana Guillaume; Alex Fletcher; Paco Castro; Gio Harrison; Argentina Parson; Janie Velázquez; Alex Hawkins; Elijah Shine.; Astrid Kim; Néstor Aguirre; Jessica Hameed; Sarahy Somers; Ortiz Resendiz; Abhijit Wilson; Tracy Ibanez; Geni Mondragon.; Octavia Gottlieb; Mendel Luu; Ryan Rascon; Brody Aragon Jr; Chrissy Stone; Yoko Ayala A.; Chitra Bonilla A.; Wai Augustin; Markus Crawford.; Jennifer Riley S.; Yoko Reyes A.; Michael Fagan.; Dank Phillips; Ibrahima Post; Jd House; Erin Cabrera; Kate Lucas; Lana Jones; Margy Wagner; Debi Azevedo; Rosey Coe; Javid Shaver Jr; Jaida Sanchez; Shayla Greene; Trevor Jimenez M Hospital Stay Data Consultations 09/09/24 07:50 ED Decision to Admit Stat 09/09/24 09:14 Consult Cardiology Routine 09/10/24 13:29 Consult Anesthesiology Routine Procedures Performed Operation Date: 09/11/24 13:00 Actual Procedures p Cardioversion - Mejia Bland MD Diagnostic Imagining Performed ECHO Pending Results Patient Have Any Pending Studies at Discharge: No Discharge Instructions Given to Patient (Per Discharging Provider) You were admitted with rapid atrial fibrillation and had an electric cardioversion to shock your heart back to a normal heart rhythm. This was successful. You can stay on your same/usual dose of metoprolol and definitely continue to take your Eliquis. You also had a UTI. Please finish out 5 more days of the oral antibiotic called cefuroxime twice a day for this. Total Time Total Time Spent Total Time Spent (In Minutes): 35 min Total Time Includes: Examination of the Patient, Discharge Planning, Medication Reconciliation and Communication With Other Providers Coding Level of Care Code 37732 INP/OBS DISCH >30 MIN Diagnoses Atrial fibrillation with rapid ventricular response I48.91 Urinary tract infection N30.00 Hematuria presence: without hematuria Urinary tract infection type: acute cystitis Chronic heart failure with preserved ejection fraction I50.32 Heart failure chronicity: chronic Lymphocytosis D72.820 Major depressive disorder, recurrent, mild F33.0
[2024-09-12] MEDS ORDERED: PANTOprazole 40 MG TAB PO SCH (09:00)
--- NOTE | 2024-09-12 15:25 | Electrocardiogram Report ---
Test Reason : Blood Pressure : */* mmHG Vent. Rate : 64 BPM Atrial Rate : 64 BPM P-R Int : 190 ms QRS Dur : 82 ms QT Int : 428 ms P-R-T Axes : 51 -23 21 degrees QTcB Int : 441 ms Normal sinus rhythm Poor R wave progression, consider anterior OH vs. lead placement vs. LVH Abnormal ECG When compared with ECG of 09-Sep-2024 05:21, Sinus rhythm has replaced Atrial fibrillation Vent. rate has decreased by [address] no longer depressed in Inferior leads Non-specific change in ST segment in Anterior leads Confirmed by Mejia Bland ([id number]) on 09/12/2024 3:25:34 PM Referred By: REFERRED SELF Confirmed By: Mejia Bland
== END 2024-09-11 17:20 | disposition home or self-care (01) | DRG 309 ==
LOC: ED 05:16 → SUATTDRO 08:30 → 2N 08:30 → 2E 09-10 00:17

== ENCOUNTER 2024-11-13 09:34 | Inpatient (IN) ==
[2024-11-13 10:26] LABS: Albumin Globulin Ratio 1.8 (0.9-2); Albumin Level 4.3 gm/dl (3.4-5.0); BUN Creatinine Ratio 26.9 (10-20); Bilirubin,Total 1.1 mg/dl (0.2-1.0); Calcium 8.7 mg/dl (8.6-10.3); Creatinine Clr Calc Pharmacy 53.2 ml/min; Globulin 2.4 gm/dl (2.5-4.0); Magnesium 2.2 mg/dl (1.7-2.4); Potassium 4.3 mmol/L (3.5-5.1); Total Protein 6.7 gm/dl (6.0-8.3)
[2024-11-13 10:27] LABS: Hematocrit (blood only) 36.1 % (37.0-47.0); Hemoglobin 10.9 g/dl (12.0-16.0); Mean Corpuscular Hemoglobin 20.5 pg (25.0-34.0); Mean Corpuscular Hgb Conc 30.2 g/dL (32.0-36.0); Mean Corpuscular Volume 67.7 fL (80.0-100.0); Mean Platelet Volume 10.3 fL (9.4-12.4); Platelet Count 175 K/uL (130-400); RDW Coefficient of Variation 17.2 % (11.5-14.5); RDW Standard Deviation 39.1 fL (36.4-46.3); Red Blood Count 5.33 M/uL (4.20-5.40); White Blood Count 6.59 K/ul (4.8-10.8)
--- NOTE | 2024-11-13 10:33 | XRay Report ---
XR chest 1V portable CLINICAL HISTORY: Chest pain, nonspecific COMPARISON STUDY: 09/09/2024 FINDINGS: There is stable cardiomegaly with increased pulmonary vascular congestion. There is interva l opacity at the right base with obscuration of the diaphragm. No pneumothorax. IMPRESSION: CHF with small right pleural effusion and associated right lung base consolidation. ACT 112: Negative or not required by law. Electronically signed by: Wai Green M.D. 11/13/2024 10:32 AM
[2024-11-13 10:36] LABS: Basophils # (auto) 0.05 K/uL (0.00-0.20); Basophils % (auto) 0.8 %; Eosinophils # (auto) 0.16 K/uL (0.00-0.50); Eosinophils % (auto) 2.4 %; Immature Granulocytes # (auto) 0.03 K/uL (0.01-0.20); Immature Granulocytes % (auto) 0.5 %; Lymphocytes # (auto) 1.37 K/uL (1.20-3.40); Lymphocytes % (auto) 20.8 %; Microcytosis Present; Monocytes # (auto) 0.56 K/uL (0.11-0.59); Monocytes % (auto) 8.5 %; Neutrophils # (auto) 4.42 K/uL (1.40-6.50); Ovalocytes 2+; Polychromasia 1+; Tear Drop Cells 3+
[2024-11-13 10:41] LABS: Thyroid Stimulating Hormone 0.657 uIu/ml (0.300-4.500)
[2024-11-13 10:48] LABS: INR 1.1 (0.9-1.1); Partial Thromboplastin Ratio 1.1; Partial Thromboplastin Time 29 Seconds (21-31); Prothrombin Time 11.9 Seconds (9.0-12.0)
--- NOTE | 2024-11-13 10:53 | Emergency Department Note ---
Impression & Plan Paroxysmal atrial fibrillation, Hypoxia, Acute exacerbation of CHF (congestive heart failure), Weakness ED Provider Note Provider: Alirio Cherry MD CHIEF COMPLAINT: Chest heaviness, weakness HISTORY OF PRESENT ILLNESS: Patient is a 89-year-old female past medical history of atrial fibrillation on Eliquis, heart failure, GERD presenting here today via ambulance from home. Patient states that she is noticed irregular heartbeat over the last several weeks. Was hospitalized here several months ago for uncontrolled atrial fibrillation. Reports this morning she awoke and experience some chest heaviness and a bit of shortness of breath when getting up and going to the bathroom. No syncope. No falls. States compliance with home medications and did have a bit breakfast and her morning medications this morning. Denies significant GI upset or nausea or vomiting. Patient denies significant recent fever or cough. Maybe a little bit more swelling of the legs reported. States her heart rate seemed like was elevated over 120 beats this morning so she came here for evaluation. PAST MEDICAL HISTORY: As noted above MEDICATIONS: Reviewed home medications SOCIAL HISTORY: Resides at the [place] in apartment PHYSICAL EXAM: GENERAL: alert and oriented in no acute distress on stretcher Head: normocephalic and atraumatic EYES: No injection, discharge or icterus. EOMI. NECK: Trachea midline. ENT: Mucous membranes pink and moist. LUNGS: Airway patent. No retractions. Breath sounds diminished in the bases HEART: Irregular rate and rhythm. No chest wall tenderness ABDOMEN: Soft and non-tender, without guarding or rebound. SKIN: Acyanotic, warm, dry, without rashes EXTREMITIES: Without tenderness with 1+ bilateral lower extremity edema. NEUROLOGICAL: No focal deficits. No aphasia. No facial droop or slurred speech. EK bpm atrial fibrillation with rapid ventricular response. No acute ST segment elevation or depression with nonspecific T wave changes and QTc of 464. CONTINUOUS CARDIAC MONITORING: was ordered and showed a heart rate of 70s to 110s bpm in atrial fibrillation Patient's laboratory studies and imaging reviewed. Differential includes Infection, dehydration, metabolic abnormality, hypo/hyperglycemia, electrolyte disturbance, anemia, hypoxia, cardiac sources, intracerebral event, toxicologic, neurologic, as well as other pathologies. IMPRESSION/MEDICAL DECISION MAKING: Denies any sharp chest pain but a heaviness on the chest. Appears to be in A- fib with variable rates sometimes in the 90s later in the 120s. Oxygen level right around 90%. Anticoagulated lower suspicion for VTE/PE. No significant fever reported. No leukocytosis and minimal anemia on blood work. No severe electrolyte abnormality signs of renal dysfunction. Troponin is normal. No evidence of hepatitis or pancreatitis based on labs and TSH is normal. Chest x- ray shows some fluid overloaded findings with a right pleural effusion. Patient is on Lasix. Oxygen level seated here in bed in the high 80s. Will give extra dose of Lasix and bring in for further monitor diuresis given her hypoxia. Will monitor closely for additional need for rate control. BNP is elevated. Patient agreeable with this plan. Hospitalist team contacted. DIAGNOSIS: CHF, fluid overload, chest heaviness, atrial fibrillation, hypoxia DISPOSITION: Hospitalist will evaluate Patient was agreeable with this plan. 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, recurrent, mild JOSTIN (generalized anxiety disorder) Acute stress disorder Troponin level elevated Rhabdomyolysis Hypoxia Encounter for pre-operative examination Pneumonia Leukocytosis (Acute) Closed right hip fracture (Acute) Fall (HFpEF) heart failure with preserved ejection fraction GERD (gastroesophageal reflux disease) Anxiety Arthritis First degree atrioventricular block by electrocardiogram HBP (high blood pressure) (Acute) Paroxysmal atrial fibrillation (Acute) Chest pain (Acute) Medical History Hypertension Anticoagulant long-term use Chest pain CHF (congestive heart failure) Surgical History History of 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 History of dilatation and curettage x 2 History of hysterectomy with BSO Family History Father , age 60 Colorectal cancer Mother , age 98 Dementia Hypertension Stroke Sister , age 60s Mesothelioma Denies family history of Coronary heart disease AAA (abdominal aortic aneurysm) Social History Smoking Status: Never smoker Second Hand Exposure: No; Do You Dip or Chew Tobacco: No; Hx Alcohol Use: No Hx Substance Use: No Preferred Language: Uzbek Communication Ability: Effective Pig Farmer Required: No Beliefs That Will Affect Care: None marital status: Unknown Current Living Situation: Personal Care Facility Current Living Situation Comment: independent living at 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 Feels Safe at Home: Yes Assistive Devices: Walker Allergies Allergies Allergy/AdvReac Type Severity Reaction Status Date / Time metronidazole Allergy Intermediate HIVES Verified 09/09/24 10:39 naproxen Allergy Intermediate HIVES Verified 09/09/24 10:39 perflutren [From Definity] AdvReac Back Pain Verified 09/09/24 10:39 Home Meds Home Medications Medication Instructions Recorded Confirmed multivitamin 1 tab PO UD 08/27/19 11/13/24 metoprolol succinate 100 mg 100 mg PO DAILY 06/16/21 11/13/24 tablet,extended release 24 hr (Toprol XL) pantoprazole 20 mg tablet,delayed 20 mg PO BID 04/23/23 11/13/24 release acetaminophen 500 mg tablet 500 mg PO QID ARTHRITIS PAIN 10/09/23 11/13/24 (Tylenol Extra Strength) carboxymethylcellulose 0.5 1 drp ophthalmic (eye) UD PRN Dry 10/09/23 11/13/24 %-glycerin 0.9 % eye drops Eyes (Refresh Optive) simethicone 125 mg chewable tablet 125 mg PO UD PRN GAS RELIEF 10/09/23 11/13/24 (Gas-X Extra Strength) denosumab 60 mg/mL subcutaneous 0 mg subcut Q6MO 06/20/24 11/13/24 syringe (Prolia) furosemide 40 mg tablet 40 mg PO DAILY 06/20/24 11/13/24 Previous Rx's Medication Instructions Recorded amlodipine 5 mg tablet (Norvasc) 5 mg PO BID #60 tabs 08/29/19 clonazepam 0.25 mg disintegrating 0.25 mg PO BID #60 tabs 08/29/19 tablet apixaban 5 mg tablet (Eliquis) 5 mg PO BID #180 tabs 07/21/21 cholecalciferol (vitamin D3) 25 2,000 unit PO QAM #60 caps 10/24/23 mcg (1,000 unit) capsule dronedarone 400 mg tablet (Multaq) 400 mg PO BID #60 tabs 10/24/23 potassium chloride 20 mEq 20 meq PO BID #60 tabs 10/24/23 tablet,extended release sertraline 50 mg tablet 100 mg (2 x 50 mg) PO DAILY #60 10/24/23 tabs Results & Data (ED) Vital Signs Vital Signs - 24 hr 11/13/24 09:49 11/13/24 09:56 11/13/24 09:57 Temperature 36.6 C Temperature Source Oral Pulse Rate 127 H 92 H Pulse Rate [Apical] Pulse Rate from SpO2 Sensor 116 H Pulse Strength [Apical] Respiratory Rate 18 25 H Respiratory Effort / Characteristics Non-Labored Spontaneous Respiratory Depth Normal Respiratory Pattern Blood Pressure 119/65 Blood Pressure [Left Arm] Blood Pressure Mean 83 Blood Pressure Mean [Left Arm] Pulse Oximetry 93 93 94 Oxygen Delivery Method Room Air Room Air Oxygen Flow Rate Sepsis Recent Fever Within 48 Hours No Sepsis New/Unexplained Change in Mental Status No Sepsis Action Taken by Nursing No Action Required Oxygen Flow Rate - Titration Pulse Oximetry Post Tiitration 11/13/24 10:00 11/13/24 10:01 11/13/24 10:18 Temperature Temperature Source Pulse Rate 95 H 102 H Pulse Rate [Apical] Pulse Rate from SpO2 Sensor 98 H Pulse Strength [Apical] Respiratory Rate 23 Respiratory Effort / Characteristics Respiratory Depth Respiratory Pattern Blood Pressure 104/81 Blood Pressure [Left Arm] Blood Pressure Mean 95 Blood Pressure Mean [Left Arm] Pulse Oximetry 91 Oxygen Delivery Method Oxygen Flow Rate Sepsis Recent Fever Within 48 Hours Sepsis New/Unexplained Change in Mental Status Sepsis Action Taken by Nursing Oxygen Flow Rate - Titration Pulse Oximetry Post Tiitration 11/13/24 10:42 11/13/24 11:23 11/13/24 11:24 Temperature Temperature Source Pulse Rate 88 Pulse Rate [Apical] 98 H Pulse Rate from SpO2 Sensor 93 H Pulse Strength [Apical] Normal Respiratory Rate 21 20 Respiratory Effort / Characteristics Non-Labored Spontaneous Respiratory Depth Normal Respiratory Pattern Regular Blood Pressure Blood Pressure [Left Arm] 100/58 L Blood Pressure Mean Blood Pressure Mean [Left Arm] 72 Pulse Oximetry 91 95 88 L Oxygen Delivery Method Nasal Cannula Room Air Oxygen Flow Rate 1 Sepsis Recent Fever Within 48 Hours Sepsis New/Unexplained Change in Mental Status Sepsis Action Taken by Nursing Oxygen Flow Rate - Titration 1 Pulse Oximetry Post Tiitration 95 Laboratory Data 11/13/24 09:40 11/13/24 09:40 Lab Results 11/13/24 11/13/24 Range/Units 09:40 10:13 WBC 6.59 (4.8-10.8) K/ul RBC 5.33 (4.20-5.40) M/uL Hgb 10.9 L (12.0-16.0) g/dl Hct 36.1 L (37.0-47.0) % MCV 67.7 L (80.0-100.0) fL MCH 20.5 L (25.0-34.0) pg MCHC 30.2 L (32.0-36.0) g/dL RDW Std Deviation 39.1 (36.4-46.3) fL RDW Coeff of Mikayla 17.2 H (11.5-14.5) % Plt Count 175 (130-400) K/uL MPV 10.3 (9.4-12.4) fL Immature Gran % (Auto) 0.5 % Neut % (Auto) 67.0 % Lymph % (Auto) 20.8 % [place] % (Auto) 8.5 % Eos % (Auto) 2.4 % Baso % (Auto) 0.8 % Neut # (Auto) 4.42 (1.40-6.50) K/uL Lymph # (Auto) 1.37 (1.20-3.40) K/uL [place] # (Auto) 0.56 (0.11-0.59) K/uL Eos # (Auto) 0.16 (0.00-0.50) K/uL Baso # (Auto) 0.05 (0.00-0.20) K/uL Immature Gran # (Auto) 0.03 (0.01-0.20) K/uL Polychromasia 1+ Microcytosis Present Tear Drop Cells 3+ Ovalocytes 2+ PT 11.9 (9.0-12.0) Seconds INR 1.1 (0.9-1.1) APTT 29 (21-31) Seconds PTT Ratio 1.1 Sodium 140 (136-145) mmol/L Potassium 4.3 (3.5-5.1) mmol/L Chloride 111 H (98-107) mmol/L Carbon Dioxide 23 (21-32) mmol/L Anion Gap 6 (3-11) BUN 21 (6-23) mg/dl Creatinine 0.78 (0.6-1.2) mg/dl Est Cr Clr Drug Dosing 53.2 ml/min eGFR 72.56 BUN/Creatinine Ratio 26.9 H (10-20) Glucose 182 H (70-99(Fasting)) mg/dl Calcium 8.7 (8.6-10.3) mg/dl Magnesium 2.2 (1.7-2.4) mg/dl Total Bilirubin 1.1 H (0.2-1.0) mg/dl AST 42 H (13-39) U/L ALT 46 (7-52) U/L Alkaline Phosphatase 78 (34-104) U/L Troponin I High Sens 3.0 (0-14) pg/ml B-Natriuretic Peptide 402 H (0-100) pg/ml Total Protein 6.7 (6.0-8.3) gm/dl Albumin 4.3 (3.4-5.0) gm/dl Globulin 2.4 L (2.5-4.0) gm/dl Albumin/Globulin Ratio 1.8 (0.9-2) Lipase 9 L (11-82) U/L TSH 0.657 (0.300-4.500) uIu/ml Adenovirus (PCR) Not Detected (NotDetected) B. pertussis DNA (PCR) Not Detected (NotDetected) B.parapertussis DNA PCR Not Detected (NotDetected) C. pneumoniae DNA (PCR) Not Detected (NotDetected) Coronavirus OC43 (PCR) Not Detected (NotDetected) Coronavirus HKU1 (PCR) Not Detected (NotDetected) Coronavirus 229E (PCR) Not Detected (NotDetected) SARS-CoV-2 (PCR) Not Detected (NotDetected) Coronavirus NL63 (PCR) Not Detected (NotDetected) Human Metapneumovir PCR Not Detected (NotDetected) Influenza Type A (PCR) Not Detected (NotDetected) Influenza Type B (PCR) Not Detected (NotDetected) M. pneumoniae (PCR) Not Detected (NotDetected) Parainfluenza 1 (PCR) Not Detected (NotDetected) Parainfluenza 2 (PCR) Not Detected (NotDetected) Parainfluenza 3 (PCR) Not Detected (NotDetected) Parainfluenza 4 (PCR) Not Detected (NotDetected) RSV (PCR) Not Detected (NotDetected) Entero/Rhino (PCR) Not Detected (NotDetected) Administered Medications Discontinued Medications Furosemide (Furosemide 40 Mg/4 Ml Vial) 40 mg IV ONE ONE Stop: 11/13/24 10:52 Last Admin: 11/13/24 11:31 Dose: 40 mg Documented By: HUGO Imaging Data Radiologist's Impression: Chest X-Ray 11/13/24 09:49 XR chest 1V portable CLINICAL HISTORY: Chest pain, nonspecific COMPARISON STUDY: 09/09/2024 FINDINGS: There is stable cardiomegaly with increased pulmonary vascular congestion. There is interval opacity at the right base with obscuration of the diaphragm. No pneumothorax. IMPRESSION: CHF with small right pleural effusion and associated right lung base consolidation. ACT 112: Negative or not required by law. Electronically signed by: Wai Green M.D. 11/13/2024 10:32 AM Discharge Plan Visit Data Chief Complaint: Cardiac Assessment Stated Complaint: CARDIAC ASSESSMENT ED Provider: Alirio Cherry Discharge Problem: Paroxysmal atrial fibrillation, Hypoxia, Acute exacerbation of CHF (congestive heart failure), Weakness Patient Disposition: Being Evaluated by Hospitalist Forms Stand Alone Forms: [facility] Prescriptions Prescriptions: No Action Eliquis 5 mg tablet 5 mg PO BID Qty: 180 3RF furosemide 40 mg tablet 40 mg PO DAILY Prolia 60 mg/mL syringe 0 mg subcut Q6MO Rx Instructions: dose unknown multivitamin Tablet 1 tab PO UD Rx Instructions: 1 tab po qam. Not on faxed medication list unable to verify amlodipine [Norvasc] 5 mg Tablet 5 mg PO BID Qty: 60 2RF Hold Instructions: Resume on 11/04/23. holding while on diuretics to prevent hypotension clonazepam 0.25 mg tablet,disintegrating 0.25 mg PO BID Qty: 60 0RF metoprolol succinate [Toprol XL] 100 mg tablet extended release 24 hr 100 mg PO DAILY pantoprazole 20 mg tablet,delayed release (DR/EC) 20 mg PO BID acetaminophen [Tylenol Extra Strength] 500 mg Tablet 500 mg PO QID simethicone [Gas-X Extra Strength] 125 mg Tablet,Chewable 125 mg PO UD PRN (Reason: GAS RELIEF) Rx Instructions: 125 mg po as directed prn. Not on faxed medication list unable to verify Refresh Optive 0.5-0.9 % Drops 1 drp OPHTHALMIC (EYE) UD PRN (Reason: Dry Eyes) Rx Instructions: 1 dorp eye as directed prn. Not on faxed medication list unable to verify Multaq 400 mg Tablet 400 mg PO BID Qty: 60 0RF cholecalciferol (vitamin D3) 25 mcg (1,000 unit) Capsule 2,000 unit PO QAM Qty: 60 0RF sertraline 50 mg tablet 100 mg PO DAILY Qty: 60 0RF potassium chloride 20 mEq tablet extended release 20 meq PO BID Qty: 60 0RF Referrals Referrals: Olman Vigil MD [Primary Care Provider] - Discharge Problem: Acute exacerbation of CHF (congestive heart failure) Qualifiers: Heart failure type: unspecified Qualified Code(s): I50.9 - Heart failure, unspecified
--- NOTE | 2024-11-13 11:11 | History & Physical Report ---
Date of Service November 13, 2024 Assessment & Plan (1) Hypoxia: (2) Pleural effusion, right: (3) (HFpEF) heart failure with preserved ejection fraction: (4) Paroxysmal atrial fibrillation: Plan Patient is a 89-year-old female with past medical history of A-fib on Eliquis, HFpEF, GERD, hypertension, depression. She presents today due to chest heaviness and dyspnea. In ED x-ray showed small right pleural effusion, associated consolidation. She is being admitted for hypoxia and IV diuresis. #hypoxia/ acute HFpEF Component of medication noncompliance missing approx 2 Lasix/ week x 1 month dry weight ~ 80 kg CXR showing small right pleural effusion and associated consolidation echo 09/09/2024 EF 55 to 60%, mild/mod tricuspid regurg, mild/mild mitral regurg, borderline LVH currently on 2L NC; wean O2 as tolerated IV Lasix 40 mg in ED -> continue with 40 BID IV Lasix continue home K+ supplement 20 MeQ BID strict I&O's incentive spirometry TEDs trend electrolytes with IV diuresis #PNA questionable abx treatment with levaquin x 1; see if improvement to continue tx #Afib continue Eliquis, Multaq, and metoprolol #HTN hold Norvasc with IV diuresis continue metoprolol Chronic stable diagnoses: GERD - continue PPI anxiety/depression - continue clonazepam and sertraline VTE ppx: Eliquis Diet: heart healthy, low NA diet Dispo: Med/tele Admission and Anticipated Discharge Date Admission Date: 11/13/24 History of Present Illness Chief Complaint: cardiac assessment Primary Care Provider: Olman Vigil MD Patient is a 89-year-old female with past medical history of A-fib on Eliquis, HFpEF, GERD, hypertension, depression. She presents today due to chest heaviness and dyspnea. In ED x-ray showed small right pleural effusion, associated consolidation. She is being admitted for hypoxia and IV diuresis. Patient seen at bedside and on 2 L O2 via nasal cannula with O2 sat at 95%; patient does not use oxygen at baseline. She stated that she started with shortness of breath on exertion yesterday that got much worse this morning. She does not have dyspnea at baseline with history of CHF. She also has associated chest heaviness, denies sharp, stabbing chest pain. She stated her lower extremity edema is mildly worse than normal for the past few days. She also endorses 1 episode of diarrhea yesterday. Patient denies fever, chills, headache, dizziness, lightheadedness, rhinorrhea, sore throat, cough, sputum production, dyspnea at rest, abdominal pain, nausea, vomiting. she has not had any sick contacts. Regarding her dietshe eats 1 meal a day provided by the [employer], low-salt. She typically eats cereal and fruit for breakfast. She has an occasional peanut butter and jelly sandwich. She tries to limit her salt intake. She did however state that she sometimes misses her Lasix. She misses it approximately 2 times a week for the past month. She has difficulty deciding what time and did take it depending on what she has going on that day. She did take all of her home medications this morning but did not take her Lasix today. She wishes to be full code at this time. Allergies Allergy/AdvReac Type Severity Reaction Status Date / Time metronidazole Allergy Intermediate HIVES Verified 09/09/24 10:39 naproxen Allergy Intermediate HIVES Verified 09/09/24 10:39 perflutren [From whistleBox] AdvReac Back Pain Verified 09/09/24 10:39 Home Medications Medication Instructions Recorded Confirmed Type multivitamin 1 tab PO UD 08/27/19 11/13/24 History amlodipine 5 mg tablet (Norvasc) 5 mg PO BID #60 tabs 08/29/19 11/13/24 Rx clonazepam 0.25 mg disintegrating 0.25 mg PO BID #60 tabs 08/29/19 11/13/24 Rx tablet metoprolol succinate 100 mg 100 mg PO DAILY 06/16/21 11/13/24 History tablet,extended release 24 hr (Toprol XL) apixaban 5 mg tablet (Eliquis) 5 mg PO BID #180 tabs 07/21/21 11/13/24 Rx pantoprazole 20 mg tablet,delayed 20 mg PO BID 04/23/23 11/13/24 History release acetaminophen 500 mg tablet 500 mg PO QID ARTHRITIS PAIN 10/09/23 11/13/24 History (Tylenol Extra Strength) carboxymethylcellulose 0.5 1 drp ophthalmic (eye) UD PRN Dry 10/09/23 11/13/24 History %-glycerin 0.9 % eye drops Eyes (Refresh Optive) simethicone 125 mg chewable tablet 125 mg PO UD PRN GAS RELIEF 10/09/23 11/13/24 History (Gas-X Extra Strength) cholecalciferol (vitamin D3) 25 2,000 unit PO QAM #60 caps 10/24/23 11/13/24 Rx mcg (1,000 unit) capsule dronedarone 400 mg tablet (Multaq) 400 mg PO BID #60 tabs 10/24/23 11/13/24 Rx potassium chloride 20 mEq 20 meq PO BID #60 tabs 10/24/23 11/13/24 Rx tablet,extended release sertraline 50 mg tablet 100 mg (2 x 50 mg) PO DAILY #60 10/24/23 11/13/24 Rx tabs denosumab 60 mg/mL subcutaneous 0 mg subcut Q6MO 06/20/24 11/13/24 History syringe (Prolia) furosemide 40 mg tablet 40 mg PO DAILY 06/20/24 11/13/24 History Past Med/Surg History Problem List (Updated 11/13/24 @ 11:14 by Julieta Cantu PA-C) Pleural effusion, right Lymphocytosis On apixaban therapy (Acute) UTI (urinary tract infection) Pulmonary edema 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, recurrent, mild JOSTIN (generalized anxiety disorder) Acute stress disorder Troponin level elevated Rhabdomyolysis Hypoxia Encounter for pre-operative examination Pneumonia Leukocytosis (Acute) Closed right hip fracture (Acute) Fall (HFpEF) heart failure with preserved ejection fraction GERD (gastroesophageal reflux disease) Anxiety Arthritis First degree atrioventricular block by electrocardiogram HBP (high blood pressure) (Acute) Paroxysmal atrial fibrillation (Acute) Chest pain (Acute) Medical History Hypertension Anticoagulant long-term use Chest pain CHF (congestive heart failure) Surgical History History of 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 History of dilatation and curettage x 2 History of hysterectomy with BSO Family History Father , age 60 Colorectal cancer Mother , age 98 Dementia Hypertension Stroke Sister , age 60s Mesothelioma Denies family history of Coronary heart disease AAA (abdominal aortic aneurysm) Social History Smoking Status: Never smoker Second Hand Exposure: No; Do You Dip or Chew Tobacco: No; Hx Alcohol Use: No Hx Substance Use: No Preferred Language: Thai Communication Ability: Effective Lab Specialist Required: No Beliefs That Will Affect Care: None marital status: Unknown Current Living Situation: Personal Care Facility Current Living Situation Comment: independent living at [facility] current occupational status: 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 Non-toxic appearing. HEENT- EOMI, mucous membranes moist. Hearing grossly intact. Heart-normal S1 and S2. No murmurs, rubs or gallops. Lungs-diminished RLL, no respiratory distress, no accessory muscle use. Abdomen-normal bowel sounds and soft. No ascites noted. Non-tender. Extremities- no clubbing, cyanosis. +1 pitting edema BL LE. Rheumatologic-normal range of motion. Psychiatric-normal affect. Results & Data Results & Data Vital Signs (Past 12 Hours) Vital Signs Temp Pulse Resp BP Pulse Ox O2 Del Method 11/13/24 10:42 88 21 91 11/13/24 10:18 102 H 23 91 11/13/24 10:01 95 H 11/13/24 10:00 104/81 11/13/24 09:57 92 H 25 H 94 11/13/24 09:56 93 Room Air 11/13/24 09:49 36.6 C 127 H 18 119/65 93 Room Air Laboratory Results Reviewed CBC, CMP, BioFire Diagnostic Findings reviewed CXR Medications Administered Ed: Lasix 40 IV ECG Additional Comments: ordered Code Status & VTE Plan Code Status full VTE Prophylaxis Plan VTE Prophylaxis will be ordered: Yes Supervising Physician Co-Signing Physician Notes Attending addendum: I have physically seen this patient, have supervised the NATANAEL's activities, and agree with the H&P unless as otherwise noted. Assessment and Plan: Acute respiratory failure hypoxia/acute HFpEF- The patient will be admitted to telemetry for serial cardiac enzymes, serial EKG's, cardiac rhythm monitoring and a 2-D echocardiogram with Dopplers. Chest x-ray with right pleural effusion, may be parapneumonic Most recent echocardiogram 09/09/2024 with EF 55-60% Given Lasix 40 mg IV in ED Admit on Lasix 40 mg IV twice daily, and Klor-Con 20 mill equivalents p.o. twice daily Follow serial CBC with differential, renal function panel magnesium levels Parapneumonic effusion right lower lobe Single dose of levofloxacin, follow response, determine if more treatment is needed Atrial fibrillation- Continue Eliquis, Multaq and metoprolol PG Care Time/CCT Total # of Minutes Spent Total Time Spent with Patient: Total time spent is greater than 50% in coordination of care (as documented) at patient's floor/unit and/or counseling patient: Coding Level of Care Code 66135 INT INP/OBS CARE 3/75MIN Diagnoses Hypoxia R09.02 Pleural effusion, right J90 Chronic heart failure with preserved ejection fraction I50.32 Heart failure chronicity: chronic Paroxysmal atrial fibrillation I48.0 (3) (HFpEF) heart failure with preserved ejection fraction Heart failure chronicity: chronic Qualified Code(s): I50.32 - Chronic diastolic (congestive) heart failure
[2024-11-13 11:31] LABS: Adenovirus PCR Not Detected (NotDetected); Bordetella parapertussis PCR Not Detected (NotDetected); Bordetella pertussis PCR Not Detected (NotDetected); Chlamydia pneumoniae PCR Not Detected (NotDetected); Coronavirus 229E PCR Not Detected (NotDetected); Coronavirus CoV-2 (COVID19)PCR Not Detected (NotDetected); Coronavirus HKU1 PCR Not Detected (NotDetected); Coronavirus NL63 PCR Not Detected (NotDetected); Coronavirus OC43PCR Not Detected (NotDetected); Human Metapneumovirus PCR Not Detected (NotDetected); Influenza A PCR Not Detected (NotDetected); Influenza B PCR Not Detected (NotDetected); Mycoplasma pneumoniae PCR Not Detected (NotDetected); Parainfluenza Virus 1 PCR Not Detected (NotDetected); Parainfluenza Virus 2 PCR Not Detected (NotDetected); Parainfluenza Virus 3 PCR Not Detected (NotDetected); Parainfluenza Virus 4 PCR Not Detected (NotDetected); Respiratory Syncytial VirusPCR Not Detected (NotDetected); Rhinovirus/Enterovirus PCR Not Detected (NotDetected)
[2024-11-13] MEDS: FUROSEMIDE 40 MG/4 ML VIAL IV ONE (11:31)
[2024-11-13 13:39] LABS: Appearance Urine Clear (Clear); Bacteria Urine Automated None Seen (None Seen); Bilirubin Urine Negative (Negative); Blood Urine Negative (Negative); Cast Urine Automated 0-2 /lpf (0-2); Color Urine Yellow; Epithelial Cell Urine Auto 0-2 /hpf (0-2); Glucose Urine UA Negative (Negative); Ketones Urine Negative (Negative); Leukocyte Esterase Urine Trace (Negative); Nitrite Urine Negative (Negative); Protein Urine Negative (Negative); RBC Urine Automated 0-2 /hpf (0-2); Urobilinogen Urine Negative (Negative); WBC Urine Automated 0-5 /hpf (0-5); pH Urine 5.5 (4.5-7.5)
--- OUTSIDE RECORDS SUMMARY | 2024-11-13 14:16 | External Medical Summary ---
Author Name Unknown Address Unknown Organization [id number]:[facility] – [place] - [address] [place] [address] Laboratory Report Ordering Provider Test Date Status RENETTA WONG 09/27/2024 07:10:00 Final Observation Date Value Abnormality Reference (Units ) Status WBC, Total 09/27/2024 07:10:00 8.30 4.00-10.80 (K/uL) Final RBC 09/27/2024 07:10:00 5.41 3.85-5.15 (M/uL) Final Hemoglobin 09/27/2024 07:10:00 11.3 Below low normal 12.0-15.3 (g/dL) Final HCT 09/27/2024 07:10:00 37.4 36.0-45.2 (%) Final MCV 09/27/2024 07:10:00 69.1 81.5-97.5 (fL) Final MCH 09/27/2024 07:10:00 20.9 27.0-34.0 (pg) Final MCHC 09/27/2024 07:10:00 30.2 32.0-36.0 (g/dL) Final RDW 09/27/2024 07:10:00 16.5 11.5-15.5 (%) Final Platelets 09/27/2024 07:10:00 218 140-400 (K/uL) Final MPV 09/27/2024 07:10:00 10.1 6.6-11.1 (fL) Final Nucleated erythrocytes/100 leukocytes [Ratio] in Blood by Automated count 09/27/2024 07:10:00 0 <=0 (/100 WBCs) Final Performing Location [facility] - [address] [place] [address]
--- OUTSIDE RECORDS SUMMARY | 2024-11-13 14:16 | External Medical Summary ---
Author Name Unknown Address Unknown Organization [id number][place] [place] [address] [place] [id number] Laboratory Report Ordering Provider Test Date Status RENETTA WONG 09/27/2024 07:10:00 Final Observation Date Value Abnormality Reference (Units ) Status SYNC LEUKOCYTES IN BLOOD BY AUTOMATED COUNT 09/27/2024 07:10:00 8.30 4.00-10.80 (K/uL) Final Segs 09/27/2024 07:10:00 47.8 40.0-75.0 (%) Final Lymphs % 09/27/2024 07:10:00 38.4 18.0-42.0 (%) Final Monos 09/27/2024 07:10:00 9.3 1.0-11.0 (%) Final Eosinophils 09/27/2024 07:10:00 3.6 0.0-6.0 (%) Final Basos 09/27/2024 07:10:00 0.7 0.0-2.0 (%) Final Immature Granulocyte, Percent 09/27/2024 07:10:00 0.2 0.0-2.0 (%) Final Absolute Segs 09/27/2024 07:10:00 3.96 1.80-7.70 (K/uL) Final Lymphs, absolute 09/27/2024 07:10:00 3.19 1.00-4.80 (K/ul) Final Monos, Abs 09/27/2024 07:10:00 0.77 0.00-1.10 (K/uL) Final Eos, Abs 09/27/2024 07:10:00 0.30 0.00-0.70 (K/uL) Final Basos, Abs 09/27/2024 07:10:00 0.06 0.00-0.20 (K/uL) Final Immature Granulocytes, Number 09/27/2024 07:10:00 0.02 0.00-0.20 (K/uL) Final Performing Location [facility] [place] [facility] [address] [facility] [address]
[2024-11-13] MEDS ORDERED: DOCUSATE SODIUM 100 MG CAP PO PRN (15:00)
[2024-11-13] MEDS: levoFLOXacin 750 MG TAB PO ONE (15:37)
[2024-11-13] MEDS: FUROSEMIDE 40 MG/4 ML VIAL IV SCH (17:23)
--- NOTE | 2024-11-13 17:26 | Communication Note ---
Date of Service: November 13, 2024 Spoke with patient's daughter on the phone. She stated that her mother has been complaining of weakness for the past few weeks and difficulty ambulating. She feels as though she may need a higher level of care. Will place PT/OT consults.
[2024-11-13] MEDS: ACETAMINOPHEN 325 MG TAB PO PRN (22:31)
[2024-11-13] MEDS: DRONEDARONE HCL 400 MG TAB PO SCH (22:32)
[2024-11-13] MEDS: clonazePAM 0.25 MG OD TAB PO SCH (22:32)
[2024-11-13] MEDS: PANTOprazole 40 MG TAB PO SCH (22:34)
[2024-11-13] MEDS: POTASSIUM CHLORIDE CRTAB 20 MEQ TABCR PO SCH (22:34)
[2024-11-13] MEDS: APIXABAN 5 MG TABLET PO SCH (22:35)
[2024-11-14 07:20] LABS: Basophils # (auto) 0.04 K/uL (0.00-0.20); Basophils % (auto) 0.5 %; Eosinophils # (auto) 0.22 K/uL (0.00-0.50); Hematocrit (blood only) 33.1 % (37.0-47.0); Hemoglobin 10.4 g/dl (12.0-16.0); Immature Granulocytes # (auto) 0.03 K/uL (0.01-0.20); Immature Granulocytes % (auto) 0.4 %; Lymphocytes # (auto) 2.15 K/uL (1.20-3.40); Lymphocytes % (auto) 29.3 %; Mean Corpuscular Hemoglobin 20.9 pg (25.0-34.0); Mean Corpuscular Hgb Conc 31.4 g/dL (32.0-36.0); Mean Corpuscular Volume 66.6 fL (80.0-100.0); Monocytes # (auto) 0.67 K/uL (0.11-0.59); Monocytes % (auto) 9.1 %; Neutrophils # (auto) 4.23 K/uL (1.40-6.50); Neutrophils % (auto) 57.7 %; Nucleated RBC # (auto) 0.02 K/uL (0.00-0.12); Nucleated RBC % (auto) 0.3 %; RDW Coefficient of Variation 16.9 % (11.5-14.5); RDW Standard Deviation 38.5 fL (36.4-46.3); Red Blood Count 4.97 M/uL (4.20-5.40); White Blood Count 7.34 K/ul (4.8-10.8)
--- NOTE | 2024-11-14 07:39 | Hospitalist Progress Note ---
Date of Service November 14, 2024 Assessment & Plan (1) (HFpEF) heart failure with preserved ejection fraction: (2) Hypoxia: (3) Pleural effusion, right: (4) Paroxysmal atrial fibrillation: Plan Patient is a 89-year-old female with past medical history of A-fib on Eliquis, HFpEF, GERD, hypertension, depression. She presented with symptoms of chest heaviness and dyspnea. CXR showed small right pleural effusion, associated consolidation. Admitted for hypoxia requiring IV diuretics, given 40mg IV x 1 in ER and placed on BID dosing. #Acute on chronic HFpEF/Hypoxia Recent admission in September for afib/RVR and underwent cardioversion. ECHO at that time EF 55-60%, Mild-moderate tricuspid regurgitation, mild-mod MR. RVSP elevated 40-50mmHg. Was to have cardiology f/u but does not appear was arranged. Also ?if underlying EDGAR w/ her afib. Admission suspected combination of medication noncompliance with missing her lasix twice weekly for at least a month with increased LE edema and weight 86.8kg with dry weight ~80kg with O2 requirement to maintain sats with NO O2 use at baseline CXR on admission w/ CHF with small right pleural effusion and associated right lung base consolidation. BNP 402, given Lasix 40mg IV in ER IMPROVING 11/14 Continue Lasix 40mg IV BID Monitor I&O, daily weights -Net negative 2.3L since admission. Weight down from 86.8kg to 84.5kg. Renal function stable with continued diuresis and will continue to get closer to dry weight 80kg EKG w/ afib w/ RVR, rate 107bpm, continues on telemetry. Troponin not elevated at 3.0 on admission but no repeat ordered. Defer given no complaints of chest pain at this time and will monitor. Repeat EKG w/ CP Electrolytes stable but with her afib/borderline HR 100-110s, increased supplemental PO Kcl to 40meq BID with ongoing lasix use and K 3.6 on AM labs and 1gm IV mag for mag 1.9 to keep closer to 2. TSH wnl on check Remains on metoprolol/multaq/eliquis however cardiology consultation placed given last admission to weight in/benefit from increasing her metoprolol vs cardioversion pending response to diuretics? Supplemental O2 to maintain sats, wean w/ diuresis as able PT/OT consults placed, from [place], hopeful to return there in next 24-48 hours pending response to treatment Monitor labs in AM #PNA questionable w/ consolidation, ?parapneumonic effusion Given Levaquin 750mg x 1 on admission, repeat CXR w/ stable consolidation however reports breathing improved but ?2nd to diuresis as above but will continue Levaquin daily for now, sputum cx if able to produce and continue incentive spirometer/monitor response. Will add procal to am labs/if elevated would continue tx but otherwise could consider holding off further (interactions w/ QT/multaq) O2 titration as above, continue pulmonary toilet #Afib Rates appears slightly elevated, did have palpitations prior to coming in, also w/ volume overload as above TSH wnl on check Remains on eliquis, multaq, metoprolol Continued telemetry monitoring/electrolyte replacement as outlined and consult for cardiology Limited echo ordered given supervising provider on admission w/ recs for such. ?if reduced w/ elevated HR contribuing as well Appreciate recs from cards/assistance #HTN Hold Norvasc with IV diuresis , suspect also contributes to LE edema Remains on metoprolol as above, lasix as outlined BP borderline but stable and will monitor off norvasc for now Chronic stable diagnoses: GERD - continue PPI , no issues reported anxiety/depression - continue clonazepam and sertraline Notable MCV<80 but w/ +thalasemia trait. Hgb stable compared to priors/no bleeding reported VTE ppx: Eliquis Dispo: continued inpatient stay for diuresis. continue abx for now/check procal. titrate O2 as able and awaiting PT/OT evals as from [place] and hopeful to return there at discharge w/ therapy as done in the past. Will benefit from close f/u with Cardiology/CHF clininc at discharge. Admission and Anticipated Discharge Date Admission Date: November 13, 2024 Supervising Physician Co-Signing Physician Notes The patient was not seen by me. The chart was reviewed. Case discussed with GIACOMO Hester. Agree with assessment and plan Subjective Eval this morning, resting in bed. Reports feeling better, on 2L. Breathing improved. Leg edema improving. Did report palpitations/feeling heart racing prior to admission, reports improvement since coming in. Did have some noncompliance w/ her lasix which could have exacerbated her afib or afib/RVR causing worsening HF in setting of missed diuretics as well. Did place cards consult to weigh in given prior cardioversion, she does report having permanent afib now. Is on eliquis, metoprolol, multaq at baseline. Good urine output, weights down 4-5lb and renal function stable and diuretics to be continued. She is alert/oriented, good appetite, reports from [facility] but has had therapy there before. She reports Dr Vigil/partner no longer going to be seeing patients there and to be seen by a new calibration engineer but hasn't met him yet. Will ensure records from current hospitalization forwarded for continuity of care. Physical Exam 2 Physical Exam: General: 89 yo female resting in bed, NAD, on 2L NC w/ SpO2 93%, reports breathing improved HEENT: head atraumatic, normocephalic, mmm, trachea midline, +JVD Resp: diminished in the bases R>L, bibasilar rales, no wheezing, on 2L, occassional cough, no tachypnea CV: irregularly irregular, rates 100-110s, +systolic murmur, 1-2+ b/l LE edema, pulses present/calves nontender GI: +BS, soft, slight fullness but NONTENDER : no english, purewick being placed MSK/Neuro: generalized weakness but nonfocal, not confused, answering questions appropriately, following commands Psych: AOx3, cooperative and pleasant with exam Results & Data Results & Data Vital Signs (Past 12 Hours) Vital Signs Temp Pulse Pulse Pulse Resp BP Pulse Ox 11/14/24 02:54 36.4 C L 106 H 18 108/65 93 11/14/24 00:00 110 H 11/13/24 23:04 36.4 C 98 H 18 111/72 93 11/13/24 20:19 114 H 11/13/24 20:08 36.6 C 104 H 16 124/78 91 11/13/24 20:00 O2 Del Method O2 Flow Rate 11/14/24 02:54 Room Air 11/14/24 00:00 11/13/24 23:04 Nasal Cannula 2 11/13/24 20:19 11/13/24 20:08 Room Air 11/13/24 20:00 Nasal Cannula 2 Laboratory Results 11/14/24 07:01 11/14/24 07:01 Mag 1.9 Diagnostic Findings Chest X-Ray 11/13/24 09:49 XR chest 1V portable CLINICAL HISTORY: Chest pain, nonspecific COMPARISON STUDY: 09/09/2024 FINDINGS: There is stable cardiomegaly with increased pulmonary vascular congestion. There is interval opacity at the right base with obscuration of the diaphragm. No pneumothorax. IMPRESSION: CHF with small right pleural effusion and associated right lung base consolidation. ACT 112: Negative or not required by law. Electronically signed by: Wai Green M.D. 11/13/2024 10:32 AM Chest X-Ray 11/14/24 08:25 XR chest 2V PA/lateral CLINICAL HISTORY: f/u chf, consolidation COMPARISON STUDY: 11/13/2024 FINDINGS: Stable cardiomegaly with pulmonary vascular congestion consistent with CHF. Stable small right pleural effusion and consolidation at the right lung base. No pneumothorax. IMPRESSION: Stable exam. ACT 112: Negative or not required by law. Electronically signed by: Wai Green M.D. 11/14/2024 10:00 AM PG Care Time/CCT Total # of Minutes Spent Total Time Spent with Patient: Total time spent is greater than 50% in coordination of care (as documented) at patient's floor/unit and/or counseling patient: Coding Level of Care Code 15707 SUB INP/OBS CARE 3/50MIN Diagnoses Chronic heart failure with preserved ejection fraction I50.32 Heart failure chronicity: chronic Hypoxia R09.02 Pleural effusion, right J90 Paroxysmal atrial fibrillation I48.0 (1) (HFpEF) heart failure with preserved ejection fraction Heart failure chronicity: chronic Qualified Code(s): I50.32 - Chronic diastolic (congestive) heart failure
[2024-11-14 07:44] LABS: BUN Creatinine Ratio 19.5 (10-20); Creatinine Clr Calc Pharmacy 53.2 ml/min; Magnesium 1.9 mg/dl (1.7-2.4); Potassium 3.6 mmol/L (3.5-5.1)
[2024-11-14 07:50] LABS: Mean Platelet Volume 10.6 fL (9.4-12.4); Platelet Count 173 K/uL (130-400)
[2024-11-14 07:56] LABS: Hypochromasia Present; Microcytosis Present; Ovalocytes 1+; Polychromasia 2+; Target Cells 1+; Tear Drop Cells 3+
[2024-11-14] MEDS: METOPROLOL SUCC 50MG EXT REL TAB PO SCH (09:03)
[2024-11-14] MEDS: MAGNESIUM SULFATE / D5W 1 GM/100 ML BAG IV ONE (09:03)
[2024-11-14] MEDS: CHOLECALCIFEROL 25 MCG (1000 UNITS) TAB PO SCH (09:03)
[2024-11-14] MEDS: POTASSIUM CHLORIDE CRTAB 20 MEQ TABCR PO SCH (09:04)
[2024-11-14] MEDS: SERTRALINE HCL 100 MG TABLET PO SCH (09:04)
--- NOTE | 2024-11-14 10:01 | XRay Report ---
XR chest 2V PA/lateral CLINICAL HISTORY: f/u chf, consolidation COMPARISON STUDY: 11/13/2024 FINDINGS: Stable cardiomegaly with pulmonary vascular congestion consistent with CHF. Stable small ri ght pleural effusion and consolidation at the right lung base. No pneumothorax. IMPRESSION: Stable exam. ACT 112: Negative or not required by law. Electronically signed by: Wai Green M.D. 11/14/2024 10:00 AM
--- NOTE | 2024-11-14 10:03 | Cardiology Consultation ---
Date of Consultation November 14, 2024 Assessment & Plan (1) Persistent atrial fibrillation: (2) Acute exacerbation of CHF (congestive heart failure): (3) On apixaban therapy: Plan 1. Persistent atrial fibrillation: At this point she appears to be in persistent atrial fibrillation and her rhythm has not responded well to Multaq. We could consider other medication such as amiodarone, but at this point perhaps we should try rate control rather than rhythm control and see if she tolerates it. I am therefore going to discontinue her Multaq and go up on AV lauryn blocking medications. Her blood pressure is a little bit low at times but she might tolerate higher doses of beta-blockade. Her rate control is not bad under the circumstances (congestive heart failure and admission) therefore slight increase might be sufficient. We may lose some AV lauryn blocking effect when we discontinue Multaq however. 2. CHF: She does have exacerbation of her HFpEF, we will need to try to control fluid intake and diuresis and perhaps staying in atrial fibrillation we will change her requirements. We will know that over time, currently she seems doing well with diuresis. 3. Anticoagulation: She seems to be doing well on Eliquis, even though 5 mg seems like a high dose for an 89-year-old it is correct for her and I would continue it in the absence of bleeding. History of Present Illness Reason for Consultation: Atrial fibrillation, CHF Attending Physician: Tonny Monge MD History of Present Illness This is an 89-year-old woman with a history of hypertension, arthritis and thalassemia trait who moved here from [place]. She presented to the emergency room on September 05, 2013 after she was awakened in the process tank tender hours with palpitations, dizziness and weakness and was identified as having atrial fibrillation. She also reported having a heaviness in her chest. The arrhythmia converted in the emergency room after intravenous Cardizem, the duration based on symptoms was about 4-1/2 hours in total. By symptoms this was her first episode of atrial fibrillation. We therefore treated her conservatively with AV blockers, however she presented to the emergency room several more times with atrial fibrillation and a rapid heart rate, although she was not having hemodynamic symptoms during the arrhythmia. We therefore started her on flecainide in the early part of November 2013, at 50 mg twice a day. She then returned on November 12, 2013 with another episode of atrial fibrillation and her flecainide was increased to 100 mg twice a day. She presented to the emergency room again on June 06, 2015 with progressive weight gain and shortness of breath and was found to be in heart failure. Her echocardiogram was not significantly abnormal, she was diuresed and a pharmacologic stress ECHO was done which showed no ischemia. She described having exertional symptoms of chest heaviness causing her to stop walking (she typically walked up and down the [place] where she lives at the [facility] 4 times, however then with only 2 times she has the chest pressure and had to stop). We therefore performed a treadmill nuclear study on 09/26/2015 which was negative for ischemia. She presented on August 27, 2019 not feeling well and being very hypertensive. She was also having some chest discomfort which she described as a heaviness in her chest. This was present before she came in and while she was in the emergency room, she believes it lasted most of the morning but her enzymes and electrocardiograms were negative for myocardial injury. Her blood pressure medications were adjusted. An echocardiogram done on August 27, 2019 showed normal left ventricular size with mild concentric left ventricular hypertrophy and normal left ventricular function with no regional wall motion abnormalities. No significant valvular abnormalities. I did switch her anticoagulant from Xarelto to Eliquis on June 16, 2021. She remains on this 5 mg twice a day. She was hospitalized in October 2023 after suffering a mechanical fall, she was unable to get up and was brought in. During her hospitalization she reverted to atrial fibrillation and also needed operative repair of her hip which was performed on October 13, 2023. Ultimately she had cardioversion performed following transesophageal echocardiography on October 18, 2023. She was on flecainide 150 mg twice a day with recurrent atrial fibrillation therefore this was discontinued and Multaq 400 mg twice a day was started on October 20, 2023. She was discharged to [facility], then was transitioned to assisted living at the [facility] and now is in an apartment in the [facility]. She had been feeling well and was not specifically aware of episodes of atrial fibrillation in the recent past. She did describe occasionally feel poorly, this can happen for a few minutes, and she may take her blood pressure which apparently is about the same as before but her blood pressure cuff may have indicated an irregular heart rate. She does occasionally have irregular heart rates noted on her blood pressure cuff when she checks her blood pressure, but in the past with identifications of an irregular rhythm the heart rate is unchanged. These could be rate controlled atrial fibrillation or it could be premature beats. She presented to the emergency room on September 09, 2024 with a urinary tract infection and congestive heart failure and she was in atrial fibrillation with a heart rate of 121 bpm. Echocardiography at that time showed normal left ventricular size with concentric left ventricular hypertrophy and ejection fraction of 55 to 60%. She had mild to moderate mitral regurgitation. She had cardioversion performed on September 11, 2024 and was discharged that day. She was on Multaq 400 mg twice a day and has remained on that. She presented to the emergency room on November 13, 2024 with chest heaviness and weakness, she reports noting an irregular heartbeat over the last several weeks and then on the morning of November 13 experienced chest heaviness and shortness of breath when going to the bathroom. On presentation she was observed to be in atrial fibrillation with a rate of 115 bpm. She was also felt to be in congestive heart failure and is being diuresed. High-sensitivity troponin this admission is negative. Rate control medications are only metoprolol succinate 100 mg daily, and she is on Multaq 400 mg twice a day and Eliquis 5 mg twice a day. This dose is correct for her weight and kidney function. At the time of my evaluation she confirms that she has noticed the irregular cardiac rhythm for several weeks but did not feel poorly with her breathing into the last several days and then much worse this morning. She has not changed her medications recently. She has not had lightheadedness or dizziness. Following admission and initial diuresis she is feeling better. She is still somewhat aware of her artifact rate, but it is not very there are some to her. Allergies Allergy/AdvReac Type Severity Reaction Status Date / Time metronidazole Allergy Intermediate HIVES Verified 09/09/24 10:39 naproxen Allergy Intermediate HIVES Verified 09/09/24 10:39 perflutren [From Elixr] AdvReac Back Pain Verified 09/09/24 10:39 Home Medications Medication Instructions Recorded Confirmed Type multivitamin 1 tab PO UD 08/27/19 11/13/24 History amlodipine 5 mg tablet (Norvasc) 5 mg PO BID #60 tabs 08/29/19 11/13/24 Rx clonazepam 0.25 mg disintegrating 0.25 mg PO BID #60 tabs 08/29/19 11/13/24 Rx tablet metoprolol succinate 100 mg 100 mg PO DAILY 06/16/21 11/13/24 History tablet,extended release 24 hr (Toprol XL) apixaban 5 mg tablet (Eliquis) 5 mg PO BID #180 tabs 07/21/21 11/13/24 Rx pantoprazole 20 mg tablet,delayed 20 mg PO BID 04/23/23 11/13/24 History release acetaminophen 500 mg tablet 500 mg PO QID ARTHRITIS PAIN 10/09/23 11/13/24 History (Tylenol Extra Strength) carboxymethylcellulose 0.5 1 drp ophthalmic (eye) UD PRN Dry 10/09/23 11/13/24 History %-glycerin 0.9 % eye drops Eyes (Refresh Optive) simethicone 125 mg chewable tablet 125 mg PO UD PRN GAS RELIEF 10/09/23 11/13/24 History (Gas-X Extra Strength) cholecalciferol (vitamin D3) 25 2,000 unit PO QAM #60 caps 10/24/23 11/13/24 Rx mcg (1,000 unit) capsule dronedarone 400 mg tablet (Multaq) 400 mg PO BID #60 tabs 10/24/23 11/13/24 Rx potassium chloride 20 mEq 20 meq PO BID #60 tabs 10/24/23 11/13/24 Rx tablet,extended release sertraline 50 mg tablet 100 mg (2 x 50 mg) PO DAILY #60 10/24/23 11/13/24 Rx tabs denosumab 60 mg/mL subcutaneous 0 mg subcut Q6MO 06/20/24 11/13/24 History syringe (Prolia) furosemide 40 mg tablet 40 mg PO DAILY 06/20/24 11/13/24 History Patient History Medical History Hypertension Anticoagulant long-term use Chest pain CHF (congestive heart failure) Surgical History History of 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 History of dilatation and curettage x 2 History of hysterectomy with BSO Family History Father , age 60 Colorectal cancer Mother , age 98 Dementia Hypertension Stroke Sister , age 60s Mesothelioma Denies family history of Coronary heart disease AAA (abdominal aortic aneurysm) Social History Smoking Status: Never smoker Second Hand Exposure: No; Do You Dip or Chew Tobacco: No; Hx Alcohol Use: No Hx Substance Use: No Preferred Language: Nigerian Communication Ability: Effective Returned Case Inspector Required: No Beliefs That Will Affect Care: None marital status: Unknown Current Living Situation: Personal Care Facility Current Living Situation Comment: independent living at [facility] current occupational status: 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 HEENT: Unremarkable Neck: No jugular venous distention, carotid pulses are irregular but otherwise normal and equal bilaterally without bruits. Pulmonary: Clear to auscultation bilaterally. Cardiac: Irregular rhythm with no murmur, gallop or rub. Abdomen: Soft, nontender with normal bowel sounds. Extremities: No edema. Neurologic: No focal findings. Skin: No rash, ecchymoses or petechiae. Results & Data Vital Signs (Past 12 Hours) Vital Signs Temp Pulse Pulse Resp BP Pulse Ox O2 Del Method 11/14/24 07:44 36.8 C 102 H 16 108/71 93 Nasal Cannula 11/14/24 07:43 82 11/14/24 02:54 36.4 C L 106 H 18 108/65 93 Room Air 11/14/24 00:00 110 H 11/13/24 23:04 36.4 C 98 H 18 111/72 93 Nasal Cannula O2 Flow Rate 11/14/24 07:44 2 11/14/24 07:43 11/14/24 02:54 11/14/24 00:00 11/13/24 23:04 2 Laboratory Results Cardiac Enzymes 11/13/24 Range/Units 09:40 AST 42 H (13-39) U/L Troponin I High Sens 3.0 (0-14) pg/ml B-Natriuretic Peptide 402 H (0-100) pg/ml Coagulation 11/13/24 Range/Units 09:40 PT 11.9 (9.0-12.0) Seconds APTT 29 (21-31) Seconds B-Natriuretic Peptide 402 H (0-100) pg/ml CBC 11/13/24 11/14/24 Range/Units 09:40 07:01 WBC 6.59 7.34 (4.8-10.8) K/ul RBC 5.33 4.97 (4.20-5.40) M/uL Hgb 10.9 L 10.4 L (12.0-16.0) g/dl Hct 36.1 L 33.1 L (37.0-47.0) % Plt Count 175 173 (130-400) K/uL Neut # (Auto) 4.42 4.23 (1.40-6.50) K/uL Lymph # (Auto) 1.37 2.15 (1.20-3.40) K/uL Evangeline # (Auto) 0.56 0.67 H (0.11-0.59) K/uL Eos # (Auto) 0.16 0.22 (0.00-0.50) K/uL Baso # (Auto) 0.05 0.04 (0.00-0.20) K/uL Comprehensive Metabolic Panel 11/13/24 11/14/24 Range/Units 09:40 07:01 Sodium 140 141 (136-145) mmol/L Potassium 4.3 3.6 (3.5-5.1) mmol/L Chloride 111 H 107 (98-107) mmol/L Carbon Dioxide 23 28 (21-32) mmol/L BUN 21 15 (6-23) mg/dl Creatinine 0.78 0.77 (0.6-1.2) mg/dl Glucose 182 H 98 (70-99(Fasting)) mg/dl Calcium 8.7 8.0 L (8.6-10.3) mg/dl AST 42 H (13-39) U/L ALT 46 (7-52) U/L Alkaline Phosphatase 78 (34-104) U/L Total Protein 6.7 (6.0-8.3) gm/dl Albumin 4.3 (3.4-5.0) gm/dl Intake and Output 11/13/24 11/14/24 11/14/24 22:59 06:59 14:59 Intake Total 250 / 250 Output Total 1000 / 2550 1050 / 2550 Balance -1000 / -2300 -800 / -2300 Intake: Oral 250 / 250 Output: Urine 1000 / 1500 Urine Amount (Catheter) 1050 / 1050 External 1050 / 1050 Other: # Unmeasured Voids 800 Weight 86.8 kg 84.5 kg Weight Measurement Method [facility] Findings Telemetry: Atrial fibrillation, rate averaging around 100 bpm with some fluctuation but not much. PG Care Time/CCT Total # of Minutes Spent Total Time Spent with Patient: Total time spent is greater than 50% in coordination of care (as documented) at patient's floor/unit and/or counseling patient: Coding Level of Care Code 62527 INT INP/OBS CARE 3/75MIN Diagnoses Persistent atrial fibrillation I48.19 Acute exacerbation of CHF (congestive heart failure) I50.9 Heart failure type: unspecified On apixaban therapy Z79.01 (2) Acute exacerbation of CHF (congestive heart failure) Heart failure type: unspecified Qualified Code(s): I50.9 - Heart failure, unspecified
[2024-11-14] MEDS: METOPROLOL SUCC 50MG EXT REL TAB PO STA (12:33)
[2024-11-14] MEDS: levoFLOXacin/D5W 750 MG/150 ML BAG IV SCH (14:09)
--- NOTE | 2024-11-14 21:42 | XCELERA ---
[id number]
--- NOTE | 2024-11-15 06:20 | Electrocardiogram Report ---
Test Reason : Blood Pressure : */* mmHG Vent. Rate : 115 BPM Atrial Rate : * BPM P-R Int : * ms QRS Dur : 88 ms QT Int : 336 ms P-R-T Axes : * -13 9 degrees QTcB Int : 464 ms Atrial fibrillation with rapid ventricular response Low voltage QRS Cannot rule out Anterior infarct (cited on or before 11-Sep-2024) Abnormal ECG When compared with ECG of 11-Sep-2024 13:27, Atrial fibrillation has replaced Sinus rhythm Vent. rate has increased by 51 bpm Confirmed by Candido Holman ([id number]) on 11/15/2024 6:20:07 AM Referred By: REFERRED SELF Confirmed By: Candido Holman
--- NOTE | 2024-11-15 07:18 | Electrocardiogram Report ---
Test Reason : Blood Pressure : */* mmHG Vent. Rate : 107 BPM Atrial Rate : 101 BPM P-R Int : * ms QRS Dur : 80 ms QT Int : 372 ms P-R-T Axes : * 195 133 degrees QTcB Int : 496 ms Poor data quality, interpretation may be adversely affected Atrial fibrillation with rapid ventricular response arm lead reversal Abnormal ECG When compared with ECG of 13-Nov-2024 09:41, (unconfirmed) Minimal criteria for Anterior infarct are no longer Present Confirmed by Candido Holman ([id number]) on 11/15/2024 7:17:42 AM Referred By: REFERRED SELF Confirmed By: Candido Holman
[2024-11-15 07:27] LABS: BUN Creatinine Ratio 14.8 (10-20); Calcium 7.8 mg/dl (8.6-10.3); Creatinine Clr Calc Pharmacy 50.3 ml/min; Magnesium 2.1 mg/dl (1.7-2.4); Potassium 3.9 mmol/L (3.5-5.1)
[2024-11-15 07:31] LABS: Hemoglobin 10.7 g/dl (12.0-16.0); Mean Corpuscular Hgb Conc 31.5 g/dL (32.0-36.0); Mean Corpuscular Volume 66.8 fL (80.0-100.0); Mean Platelet Volume 10.2 fL (9.4-12.4); Platelet Count 208 K/uL (130-400); RDW Coefficient of Variation 17.1 % (11.5-14.5); RDW Standard Deviation 39.1 fL (36.4-46.3); Red Blood Count 5.09 M/uL (4.20-5.40); White Blood Count 8.17 K/ul (4.8-10.8)
--- NOTE | 2024-11-15 07:41 | XRay Report ---
EXAM: XR chest 1V portable CLINICAL HISTORY: F/U CONSOLIDATION. TECHNIQUE: An X-ray of the chest was performed in AP projections. COMPARISON: 09/09/2024. FINDINGS: Right-sided blunted costophrenic angle with rising level suggesting pleural effusion, a new finding. Subtle blunting of the left costophrenic angle suggesting minimal pleural effusion, stable. No gross air-space opacities were noted in both lung olmos. Still noted prominent bilateral perihilar vasculature. Left lower zonal linear opacity ( likely an atelectatic band). Apparently, enlarged cardiac size given an AP projection yet stable when compared with the previous study. No acute osseous abnormality. IMPRESSION: 1. Newly demonstrated right-sided and stable left-sided minimal pleural effusion. 2. Still noted prominent bilateral perihilar vasculature, likely representing congestion. 3. Prominent cardiac shadow (stable from previous study). Electronically signed by Tiffanie Curry 11-15-2024 07:40 AM
--- NOTE | 2024-11-15 08:01 | Hospitalist Progress Note ---
Date of Service November 15, 2024 Assessment & Plan (1) (HFpEF) heart failure with preserved ejection fraction: Plan: Patient is a 89-year-old female with past medical history of A-fib on Eliquis, HFpEF, GERD, hypertension, depression. She presented with symptoms of chest heaviness and dyspnea. Admitted for acute on chronic HFpEF and hypoxia requring supplemental O2 to maintain sats * Recent admission in September for afib/RVR and underwent cardioversion. ECHO at that time EF 55-60%, Mild-moderate tricuspid regurgitation, mild-mod MR. RVSP elevated 40-50mmHg. Was to have cardiology f/u but does not appear was arranged. Also ?if underlying EDGAR w/ her afib. Admission suspected combination of medication noncompliance with missing her lasix twice weekly for at least a month with increased LE edema and weight 86.8kg with dry weight ~80kg with O2 requirement to maintain sats with NO O2 use at baseline CXR noted CHF with small right pleural effusion and associated right lung base consolidation. BNP 402, given Lasix 40mg IV in ER and continued on BID. Troponin NOT elevated IMPROVING Weight 84.5--> 83.6kg Lasix 40mg IV BID continued, stable renal function. K improved to 3.9 with increased PO KCL supplementation to 40BID with ongoing diuretics and will continue same for now but aim to keep K ~4. Mag stable 2.1 Cardiology consulted 11/14, DISCONTINUED MULTAQ * Provided additional metoprolol succinate 50mg PO x 1 NOW last evening and plans for increased metoprolol to 150mg daily from prior 100mg * Further titration as needed but suspect needing more rate control and not maintaining any NSR and likely better for rate control at this time per cardiology -- Dr Holman to review this afternoon to see about possibly increasing if needed pending telemetry but has been 90s to low one teens. Alternatively can consider adding digoxin - defer to cards Limited ECHO w/ normal EF 60-65%, no regional wma. Mild concentric LVH. Continue to monitor weights, I&Os Supplemental O2/titration as able and hopefully off O2 by time of dc PT/OT consults pending, not yet in but was seen this morning. From [facility] to follow. Possible dc next 24-48 hours. Voicemail left for update to daughter Shahnaz regarding plan (2) Hypoxia: Plan: ONGOING suspected 2nd to acute on chronic HF as above with noncompliance of medications as well as elevated HR with her afib, however cannot r/o PNA/parapneumonic effusion and was given Levaquin x1 on admission provided additional dose 11/14 however procal only 0.09 and no wbc elevation/fever on admission and suspect more likely from congestive heart failure/compressive atelectasis. Incentive spirometer added/to be encouraged. Supplemental O2 titration as above with ongoing diuresis and monitor repeat chest exams/for any fever or sputum production/need for abx but will hold off further for now (3) Pleural effusion, right: Plan: noted, R sided on CXR today with still noted prom perihilar vasculatrue, likely representing congestion (4) Paroxysmal atrial fibrillation: Plan: APPEARS IS MORE PERMANENT IN NATURE despite multaq use. Was cardioverted last admission and continued on metoprolol/multaq on admission however see above/cards consult and increased metoprolol 150mg PO daily for today - remains on telemetry, appreciate recs/assistance from cards and considering digoxin vs increase BB pending continued telemetry monitoring. continues on Kcl supplementation BID with ongoing lasix use and mag stable 2.1 remains on eliquis BID Monitor response to ongoing diuresis Plan Chronic medical issues HTN - BP stable/borderline but asymptomatic with ongoing diuresis and amlodipine on HOLD for now. Suspect would worsen her LE edema and pending repeat BPs (once off IV diuretics and back to PO), likely could be stopped unless needed for another reason. Metoprolol has been INCREASED for HR control/afib. Continue to montior GERD - continue PPI , no issues reported anxiety/depression - continue clonazepam and sertraline Chronic anemia -- hgb better than in the past, notable MCV<80 but w/ +thalasemia trait. Hgb stable/no bleeding reported VTE ppx: Eliquis continued, appropriate dose for age given weight/renal function and rec to continue per cards Dispo: continued inpatient stay on IV diuretics, supp O2 as needed and metoprolol increased. Cards following/additional recs for HR control pending continued telemetry but hopeful return to [facility] w/ therapy pending PT/OT evals. Voicemail for daughter Shahnaz this morning and will plan to call again in AM w/ update. Benefit from CHF clinic f/u. Of note, she reports getting new PCP at [facility] and not yet met, will need to ensure records forwarded at [place] to appropriate provider at [facility] as Dr Vigil/partner no longer to be seeing Ms Lynch Admission and Anticipated Discharge Date Admission Date: November 13, 2024 Supervising Physician Co-Signing Physician Notes The patient was not seen by me. The chart was reviewed. Case discussed with GIACOMO Hester. Agree with assessment and plan Subjective Eval this morning, just got done working with therapy. Remains on supplemental O2. No CP. Reports breathing better, small improvements daily. Leg edema much improved, weights improved. Needs purewick back in on lasix. Good appetitie and drinking lots of water (will need to monitor). Discussed/reviewed med changes by Dr Holman w/ jeannette multaq and increasing her metoprolol. Rates stable but still low 100-110s and may need further adjustment. BPs borderline but asymptomatic. Ok to update daughter via phone, hopeful dc in next 24-48 hours. Updated Shahnaz via phone this morning. Questions/concerns addressed at this time. Physical Exam 2 Physical Exam: General: 89 yo female getting back to chair after working with therapy, appears/reporting improved from yesterday, remains on 2L NC for SpO2 sat HEENT: head atraumatic, normocephalic, mmm, trachea midline, +JVD (improved) Resp: diminished in the bases R>L (decreased), bibasilar rales improving, no wheezing, remains on 2L, occ cough but no tachypnea CV: irregularly irregular, rates improved but remaining 90-low one teens, DECREASED LE edema, 1+, pulses present/calves nontender GI: +BS, soft, slight fullness but NONTENDER : no english, using purewick MSK/Neuro: generalized weakness but nonfocal, not confused, answering questions appropriately, following commands Psych: AOx3, cooperative and pleasant with exam Results & Data Results & Data Vital Signs (Past 12 Hours) Vital Signs Temp Pulse Pulse Resp BP Pulse Ox O2 Del Method 11/15/24 07:16 104 H 11/15/24 03:48 36.4 C L 66 16 114/68 95 Nasal Cannula 11/15/24 00:00 125 H 11/14/24 22:59 36.7 C 87 18 104/63 97 Nasal Cannula 11/14/24 20:00 Nasal Cannula O2 Flow Rate 11/15/24 07:16 11/15/24 03:48 2 11/15/24 00:00 11/14/24 22:59 2 11/14/24 20:00 2 Laboratory Results 11/15/24 06:44 11/15/24 06:44 Mag 2.1 Procal 0.09 PG Care Time/CCT Total # of Minutes Spent Total Time Spent with Patient: Total time spent is greater than 50% in coordination of care (as documented) at patient's floor/unit and/or counseling patient: Coding Level of Care Code 38905 SUB INP/OBS CARE 3/50MIN Diagnoses Chronic heart failure with preserved ejection fraction I50.32 Heart failure chronicity: chronic Hypoxia R09.02 Pleural effusion, right J90 Paroxysmal atrial fibrillation I48.0 (1) (HFpEF) heart failure with preserved ejection fraction Heart failure chronicity: chronic Qualified Code(s): I50.32 - Chronic diastolic (congestive) heart failure
[2024-11-15] MEDS: METOPROLOL SUCC 50MG EXT REL TAB PO SCH (08:39)
--- NOTE | 2024-11-15 15:36 | Communication Note ---
Date of Service: November 15, 2024 Discussed w/ cardiology, despite documented HR in system 57 midday, telemetry with consistent rates >100 and never low. Will plan to start digoxin, 0.25mg PO x 1 for today, plan for 0.125mg three times weekly. Dr Holman back in hospital tomorrow and will discuss further management/adjustment to medications as needed.
[2024-11-15] MEDS: DIGOXIN 0.125 MG TAB PO ONE (16:43)
[2024-11-15] MEDS: METOPROLOL SUCC 25MG EXT REL TAB PO STA (18:26)
[2024-11-16 07:19] LABS: BUN Creatinine Ratio 16.5 (10-20); Calcium 7.6 mg/dl (8.6-10.3); Creatinine Clr Calc Pharmacy 47.9 ml/min; Magnesium 2.1 mg/dl (1.7-2.4); Potassium 4.1 mmol/L (3.5-5.1)
--- NOTE | 2024-11-16 07:49 | Hospitalist Progress Note ---
Date of Service November 16, 2024 Assessment & Plan (1) (HFpEF) heart failure with preserved ejection fraction: Plan: Patient is a 89-year-old female with past medical history of A-fib on Eliquis, HFpEF, GERD, hypertension, depression. She presented with symptoms of chest heaviness and dyspnea. Admitted for acute on chronic HFpEF and hypoxia requring supplemental O2 to maintain sats with reports of missing lasix 2x/wk and admitted with afib/RVR. Prior ECHO w/ EF 50-60%. Mild-mod TR, mild-mod MR. Elevated RSVP. (?EDGAR). Given 40mg IV lasix in ER w/ BNP 402. Troponin NOT elevated Suspect acute on chronic HFpEF 2nd to noncompliance w/ medications but also afib w/ uncontrolled weights. Dry weight 80kg and 86.8kg on admission w/ CXR w/ effusion/congestive changes IMPROVING Weight 86.6kg on admission Lasix 40mg IV BID continued and now DOWN TO DRY WEIGHT 80kg standing scale this AM Already got AM IV dose but dc further/resumed 40mg PO daily for AM. Kcl supplementation placed on hold as already got AM 40meq and on 20meq BID baseli ne. Cardiology consulted/following -Multaq stopped, Metoprolol increased from 100mg to 150mg QAM on 11/15 and has been continued Ongoing afib w/ elevated rates PM 11/15 and given extra 25mg PO metoprolol - Discussed w/ cards and given dig 0.25mg PO x 1 Metoprolol 150mg PO + 25mg PO daily for this morning (11/16) for total 175mg dose - Cardiology planning for repeat digoxin 0.25mg PO for this afternoon and dig level in AM - they are ordering. - Possible increase metoprolol in AM to 200mg daily pending ongoing telemetry to ensure no readmission for CHF 2nd to afib/RVR Remains on telemetry, eliquis BID continued O2 as needed--, 96% on ROOM AIR, notable drops O2 when sleeping inpatient prior, also elevated RVSP and ?underlying EDGAR. Overnight pulse ox done overnight w/ notable drops and rx to CM for O2 HS w/ recs for sleep study outpatient. Daughter does report issues w/ Lizette/sleeping. PT/OT recs for ongoing therapy at [facility] and rx to CM to continue at [facility]. Updated daughter Liz this AM and if HR better control plan for dc 11/17. Will f/u CXR in AM, remains OFF abx/no fever/worsened breathing. (2) Hypoxia: Plan: Resolved, 96% on RA Was given levaquin x 2 doses however dc and suspect more compressive atelectasis from CHF above. Management as outlined, O2 HS at dc and sleep study rec at dc. Will f/u CXR in AM but continue IS (3) Pleural effusion, right: Plan: Noted, f/u on CXR in AM following diuresis as now to dry weight. Lungs appear w/ improvement in air entry/no sputum production (4) Paroxysmal atrial fibrillation: Plan: As above, suspect now permanent, could be from untreated EDGAR Appreciate recs/assistance from [facility] dc by cards, focus on rate control w/ increasing metoprolol and addition of dig, eliquis continued electrolyte replacement to keep replete, sleep study outpatient rec'd Plan Chronic medical issues HTN - - fluctuating however plan to DISCONTINUE amlodipine as likely contributes to LE edema and increasing her metoprolol for rate control. Monitor BP w/ rate control/back to home lasix and will see if amlodipine needs resumed but suspect will be dc at discharge. GERD - continue PPI , no issues reported anxiety/depression - continue clonazepam and sertraline , mood stable, pleasant /cooperative Chronic anemia -- hgb better than in the past, improved with diuretics notable MCV<80 but w/ +thalasemia trait. Hgb stable/no bleeding reported DVT proph: eliquis continued Dispo: continued inpatient stay for HR control, metoprolol increased/likely additional dig this afternoon but defer to cardiology. Hopeful dc 11/17 if HR controlled and weights at baseline on home lasix. Updated daughter AM 11/16 Admission and Anticipated Discharge Date Admission Date: November 13, 2024 Supervising Physician Co-Signing Physician Notes The patient was not seen by me. The chart was reviewed. Case discussed with GIACOMO Hester. Agree with assessment and plan Subjective Eval this morning, feeling better. Weights to baseline, on room air Discussed overnight pulse ox, plan for O2 HS and sleep study outpatient recommended given permanent afib. Was given dig last evening, additional metoprolol 25mg this morning for total 175mg. Dr Holman in to see patient, plan to add dig 0.25mg this afternoon/check level in AM noting not loading dose but if needed may consider increasing her metoprolol to 200mg in AM if no issues with hypotension. Questions/concerns addressed. Will call daughter with update regarding plan. Physical Exam Physical Exam: General: 89 yo female sitting up in bed, much improved, NAD HEENT: head atraumatic, normocephalic, mmm, trachea midline, JVD decreased Resp: even, unlabored, improvement in air entry/bibasilar crackles, no wheezing, on ROOM AIR CV: Irregularly irregular, rates upper 90-120s at rest, resolution in 2-3+ pitting edema to legs, trace edema, pulses present/calves nontender GI: +BS, soft/NT ; purewick in place MSK/Neuro: generalized weakness but MUCH improved, nonfocal, not confused, answering questions appropriately, following commands Psych: AOx3, cooperative and pleasant with exam Results & Data Results & Data Vital Signs (Past 12 Hours) Vital Signs Temp Pulse Pulse Pulse Resp BP Pulse Ox 11/16/24 07:28 101 H 11/16/24 05:19 104 H 11/16/24 03:39 109 H 11/16/24 03:30 90 11/16/24 03:18 36.9 C 107 H 18 105/69 85 L 11/16/24 01:27 103 H 11/15/24 23:45 36.4 C L 107 H 18 100/65 86 L 11/15/24 22:48 115 H 11/15/24 22:30 110 H 11/15/24 20:56 36.5 C 107 H 18 104/69 93 11/15/24 19:50 Pulse Ox O2 Del Method O2 Del Method O2 Flow Rate 11/16/24 07:28 11/16/24 05:19 84 L Room Air 11/16/24 03:39 88 L Nasal Cannula 11/16/24 03:30 Room Air 11/16/24 03:18 Room Air 11/16/24 01:27 87 L Room Air 11/15/24 23:45 Room Air 11/15/24 22:48 90 Room Air 11/15/24 22:30 11/15/24 20:56 Nasal Cannula 2 11/15/24 19:50 Room Air Laboratory Results 11/16/24 Range/Units 06:24 Sodium 140 (136-145) mmol/L Potassium 4.1 (3.5-5.1) mmol/L Chloride 107 (98-107) mmol/L Carbon Dioxide 27 (21-32) mmol/L Anion Gap 6 (3-11) BUN 14 (6-23) mg/dl Creatinine 0.85 (0.6-1.2) mg/dl Est Cr Clr Drug Dosing 47.9 ml/min eGFR 65.45 BUN/Creatinine Ratio 16.5 (10-20) Glucose 99 (70-99(Fasting)) mg/dl Calcium 7.6 L (8.6-10.3) mg/dl Magnesium 2.1 (1.7-2.4) mg/dl PG Care Time/CCT Total # of Minutes Spent Total Time Spent with Patient: Total time spent is greater than 50% in coordination of care (as documented) at patient's floor/unit and/or counseling patient: Coding Level of Care Code 26628 SUB INP/OBS CARE 3/50MIN Diagnoses Chronic heart failure with preserved ejection fraction I50.32 Heart failure chronicity: chronic Hypoxia R09.02 Pleural effusion, right J90 Paroxysmal atrial fibrillation I48.0 (1) (HFpEF) heart failure with preserved ejection fraction Heart failure chronicity: chronic Qualified Code(s): I50.32 - Chronic diastolic (congestive) heart failure
[2024-11-16] MEDS ORDERED: POTASSIUM CHLORIDE CRTAB 20 MEQ TABCR PO STA (08:12)
[2024-11-16] MEDS ORDERED: FUROSEMIDE 40 MG TAB PO SCH (09:00)
[2024-11-16] MEDS: METOPROLOL SUCC 25MG EXT REL TAB PO SCH (09:12)
--- NOTE | 2024-11-16 10:27 | Cardiology Progress Note ---
Date of Service November 16, 2024 Assessment & Plan (1) Persistent atrial fibrillation: (2) Acute exacerbation of CHF (congestive heart failure): (3) On apixaban therapy: Plan 1. Persistent atrial fibrillation: At this point she appears to be in persistent atrial fibrillation and her rhythm has not responded well to Multaq. We could consider other medication such as amiodarone, but at this point perhaps we should try rate control rather than rhythm control and see if she tolerates it. I therefore discontinued her Multaq and went up on beta-blockade and added digoxin. Her heart rate remains somewhat elevated, I am going to increase her metoprolol succinate tomorrow morning and give an additional dose of digoxin today. I will order digoxin level for tomorrow morning. I do not have her on a daily dose. Her blood pressure is a little bit low at times but she seems to be tolerating the additional beta-blockade. 2. CHF: She does have exacerbation of her HFpEF, we will need to try to control fluid intake and diuresis and perhaps staying in atrial fibrillation we will change her requirements. We will know that over time, currently she seems doing well with diuresis. 3. Anticoagulation: She seems to be doing well on Eliquis, even though 5 mg seems like a high dose for an 89-year-old it is correct for her and I would continue it in the absence of bleeding. Admission and Anticipated Discharge Date Admission Date: November 13, 2024 Subjective She is feeling better today, she has no specific cardiovascular complaints currently. No specific awareness of her cardiac rhythm. Physical Exam Physical Exam: Constitutional: Alert, cooperative and in no distress. HEENT: Unremarkable Neck: No jugular venous distention, carotid pulses are irregular but otherwise normal and equal bilaterally without bruits. Pulmonary: Clear to auscultation bilaterally. Cardiac: Irregular rhythm with no murmur, gallop or rub. Abdomen: Soft, nontender with normal bowel sounds. Extremities: No edema. Neurologic: No focal findings. Skin: No rash, ecchymoses or petechiae. Results & Data Vital Signs (Past 12 Hours) Vital Signs Temp Pulse Pulse Pulse Resp BP Pulse Ox 11/16/24 08:22 11/16/24 07:47 36.4 C L 110 H 16 124/79 92 11/16/24 07:28 101 H 11/16/24 05:19 104 H 11/16/24 03:39 109 H 11/16/24 03:30 90 11/16/24 03:18 36.9 C 107 H 18 105/69 85 L 11/16/24 01:27 103 H 11/15/24 23:45 36.4 C L 107 H 18 100/65 86 L 11/15/24 22:48 115 H and a prolonge 110 H Pulse Ox O2 Del Method O2 Del Method 11/16/24 08:22 Room Air 11/16/24 07:47 Room Air 11/16/24 07:28 11/16/24 05:19 84 L Room Air 11/16/24 03:39 88 L Nasal Cannula 11/16/24 03:30 Room Air 11/16/24 03:18 Room Air 11/16/24 01:27 87 L Room Air 11/15/24 23:45 Room Air 11/15/24 22:48 90 Room Air 11/15/24 22:30 Laboratory Results Comprehensive Metabolic Panel 11/16/24 Range/Units 06:24 Sodium 140 (136-145) mmol/L Potassium 4.1 (3.5-5.1) mmol/L Chloride 107 (98-107) mmol/L Carbon Dioxide 27 (21-32) mmol/L BUN 14 (6-23) mg/dl Creatinine 0.85 (0.6-1.2) mg/dl Glucose 99 (70-99(Fasting)) mg/dl Calcium 7.6 L (8.6-10.3) mg/dl Intake and Output 11/15/24 11/16/24 11/16/24 22:59 06:59 14:59 Output Total 1100 / 1101 Balance -1100 / -741 Output: Urine Amount (Catheter) 1100 / 1100 External 1100 / 1100 Other: Weight 83.6 kg 80 kg Weight Measurement Method Built in Bedscale Standing Scale Patient Weight 11/17/24 06:59 Weight 80 kg Diagnostic Findings Telemetry: Atrial fibrillation, rate typically 100-110 PG Care Time/CCT Total # of Minutes Spent Total Time Spent with Patient: Total time spent is greater than 50% in coordination of care (as documented) at patient's floor/unit and/or counseling patient: Coding Level of Care Code 42904 SUB INP/OBS CARE 2/35MIN Diagnoses Persistent atrial fibrillation I48.19 Acute exacerbation of CHF (congestive heart failure) I50.9 Heart failure type: unspecified On apixaban therapy Z79.01 (2) Acute exacerbation of CHF (congestive heart failure) Heart failure type: unspecified Qualified Code(s): I50.9 - Heart failure, unspecified
[2024-11-16] MEDS: DIGOXIN 0.25 MG TAB PO ONE (14:13)
[2024-11-17 06:27] LABS: Basophils # (auto) 0.06 K/uL (0.00-0.20); Basophils % (auto) 0.7 %; Eosinophils % (auto) 3.5 %; Hematocrit (blood only) 38.5 % (37.0-47.0); Hemoglobin 11.9 g/dl (12.0-16.0); Immature Granulocytes # (auto) 0.04 K/uL (0.01-0.20); Immature Granulocytes % (auto) 0.5 %; Lymphocytes # (auto) 2.51 K/uL (1.20-3.40); Lymphocytes % (auto) 29.3 %; Mean Corpuscular Hemoglobin 20.8 pg (25.0-34.0); Mean Corpuscular Hgb Conc 30.9 g/dL (32.0-36.0); Mean Corpuscular Volume 67.4 fL (80.0-100.0); Monocytes # (auto) 0.85 K/uL (0.11-0.59); Monocytes % (auto) 9.9 %; Neutrophils # (auto) 4.81 K/uL (1.40-6.50); Neutrophils % (auto) 56.1 %; RDW Standard Deviation 39.4 fL (36.4-46.3); Red Blood Count 5.71 M/uL (4.20-5.40); White Blood Count 8.57 K/ul (4.8-10.8)
[2024-11-17 06:37] LABS: Mean Platelet Volume 10.5 fL (9.4-12.4); Platelet Count 177 K/uL (130-400)
[2024-11-17 06:38] LABS: BUN Creatinine Ratio 20.7 (10-20); Calcium 7.9 mg/dl (8.6-10.3); Creatinine Clr Calc Pharmacy 49.3 ml/min; Magnesium 2.2 mg/dl (1.7-2.4); Potassium 4.1 mmol/L (3.5-5.1)
[2024-11-17 06:51] LABS: Hypochromasia Present; Microcytosis Present; Ovalocytes 1+; Tear Drop Cells 2+
[2024-11-17] MEDS: METOPROLOL SUCC 50MG EXT REL TAB PO SCH (07:22)
[2024-11-17] MEDS: FUROSEMIDE 40 MG TAB PO SCH (07:23)
--- NOTE | 2024-11-17 07:57 | Hospitalist Progress Note ---
Date of Service November 17, 2024 Assessment & Plan (1) (HFpEF) heart failure with preserved ejection fraction: Plan: Patient is a 89-year-old female with past medical history of A-fib on Eliquis, HFpEF, GERD, hypertension, depression. She presented with symptoms of chest heaviness and dyspnea. Admitted for acute on chronic HFpEF and hypoxia requring supplemental O2 to maintain sats with reports of missing lasix 2x/wk and admitted with afib/RVR. Prior ECHO w/ EF 50-60%. Mild-mod TR, mild-mod MR. Elevated RSVP. (?EDGAR). Given 40mg IV lasix in ER w/ BNP 402. Troponin NOT elevated Suspect acute on chronic HFpEF 2nd to noncompliance w/ medications but also afib w/ uncontrolled weights. Dry weight 80kg and 86.8kg on admission w/ CXR w/ effusion/congestive changes Weight 86.6kg on admission, dry weight ~80kg IMPROVING No further on IV lasix BID given weight 80kg on 11/16 and resumed lasix 40mg PO daily --> CXR w/ slight progression, suspect related to rates --> additional 40mg PO daily w/ AM dose for now and will order dose supplemental Kcl with such Metoprolol increased to 200mg for this morning Digoxin provided 0.25mg on 11/15, repeated PM 11/16 and level not surprisingly 0.6 Multaq has been STOPPED. Would also plan to STOP her amlodipine to prevent leg edema as not needing for BP control Cardiology messaged given HR improved and 90-low 100s however is at rest and likely increased with activity and appreciate further recs/assistance if wanting to continue digoxin. Eliquis BID continued for afib, continues on telemetry monitoring O2 HS and sleep study at me given suspect underlying EDGAR/elevated RVSP on ECHO and pulmonary HTN w/ drops when sleeping while inpatient Updated daughter Shahnaz regarding plan PT/OT w/ rx for continued HH therapy at [facility], possible dc later today vs med adjustment and dc in AM (pref AM to ensure adequate BP/no hypotension given fall risk for 89yo female) (2) Hypoxia: Plan: Resolved -- does have drops in O2 w/ sleeping and being arranged at [facility] w/ recs for sleep study outpt On RA at rest currently, do not suspect PNA but was given Levaquin x 2 doses and no leukocytosis/fever/sputum production Supp O2 as needed/incentive spirometer encouraged (3) Pleural effusion, right: Plan: Noted, f/u on CXR in AM following diuresis as now to dry weight. Lungs appear w/ improvement in air entry/no sputum production --> additional one time PO lasix for today as above (4) Paroxysmal atrial fibrillation: Plan: As above, suspect now permanent, could be from untreated EDGAR vs progression eliquis continued, multaq stopped and titrating metoprolol now up to 200mg AM 11/17 and consideration to continue digoxin -- defer to cards 40meq PO kcl for today given additional dose lasix and will monitor on telemetry Mag stable Plan Chronic medical issues HTN - stable/borderline -- have increased metoprolol for HR control above. Plan to dc amlodipine as above. Lasix dosing TBD if needing reduction in future if improvement w/ rate control but will continue for now GERD - continue PPI , no issues reported anxiety/depression - continue clonazepam and sertraline , mood stable, pleasant/cooperative. Chronic anemia -- hgb better than in the past, improved with diuretics/stable notable MCV<80 but w/ +thalasemia trait. Hgb stable/no bleeding reported DVT proph: eliquis continued Dispo: Continued inpatient stay on increased metoprolol and monitoring on telemetry. Additional one time PO lasix for CXR findings and pleural effusions but do not suspect PNA and likely dc in AM but possible this evening pending HR. Plan to dc to [facility] w/ PT/OT in AM 11/17 likely -updated daughter Shahnaz on phone regarding plan Admission and Anticipated Discharge Date Admission Date: November 13, 2024 Supervising Physician Co-Signing Physician Notes The patient was not seen by me. The chart was reviewed. Case discussed with GIACOMO Hester. Agree with assessment and plan Subjective Eval this morning, feeling a little tired today/did not get great sleep last evening. Discussed appears HR improved today compared to last evening. BP borderline and dig 0.6 but notable wasn't given loading dose. Breathing stable on RA at present, planning for O2 HS and sleep study outpatient. Possible dc this afternoon to [facility] but pending serial BP/HR on telemetry and discussion with cardiology regarding plan prior to dc. Updated daughter yesterday morning and can update as needed. No fever/chills, CP/SOB, abdominal pain/nausea at this time. Questions/concerns addressed at this time. Physical Exam 2 Physical Exam: General: 89 yo female sitting up in bed, fatigued and reported didn't get great sleep last night HEENT: head atraumatic, normocephalic, mmm, trachea midline, JVD slightly worse today mildly Resp: even, unlabored, slightly decreased in the bases but no wheezing/rales, 92% on RA, no tachypnea CV: Irregularly irregular, rates [id number] 100s on monitor, trace pedal edema (slight worse today), calves nontender/pulses present GI: +BS, soft, slight distention ; no english, has been using purewick MSK/Neuro: generalized weakness but MUCH improved, nonfocal, not confused, answering questions appropriately, following commands -- is more fatigued today due to lack of sleep Psych: AOx3, cooperative and pleasant with exam Results & Data Results & Data Vital Signs (Past 12 Hours) Vital Signs Temp Pulse Pulse Resp BP BP Pulse Ox 11/17/24 07:35 36.3 C L 113 H 16 106/77 92 11/17/24 03:33 36.3 C L 113 H 16 121/69 95 11/16/24 23:08 36.8 C 114 H 18 115/70 92 11/16/24 21:42 96 H 11/16/24 20:52 117 H 18 120/76 94 11/16/24 20:19 36.6 C 76 18 126/54 L 99 11/16/24 20:17 36.6 C 119 H 16 111/78 92 O2 Del Method O2 Flow Rate 11/17/24 07:35 Room Air 11/17/24 03:33 Room Air 11/16/24 23:08 Nasal Cannula 2 11/16/24 21:42 11/16/24 20:52 Nasal Cannula 2 11/16/24 20:19 Nasal Cannula 3.5 11/16/24 20:17 Nasal Cannula 3 Laboratory Results 11/17/24 05:26 11/17/24 05:26 Mag 2.2 Digoxin 0.6 Diagnostic Findings Chest X-Ray 11/17/24 07:00 EXAM: XR chest 1V portable CLINICAL HISTORY: f/u tgb. TECHNIQUE: An X-ray image of the chest is obtained in AP projection. COMPARISON: Prior study dated 11/15/2024. FINDINGS: Pulmonary Parenchyma: Bilateral prominent broncho vascular markings and hilar vascularity Left lower lung zone thickened parenchymal bands Blunting of both costophrenic angles No evidence of consolidation, collapse, or focal opacities. No pulmonary nodules are identified. Heart and Mediastinum: Cardiomegaly. No mediastinal widening or masses. No hilar or mediastinal lymphadenopathy. Bony Thorax: Bony thorax appears intact without fractures or deformities. Soft Tissues: Soft tissues overlying the chest wall are unremarkable. IMPRESSION: 1. Bilateral prominent broncho vascular markings and hilar vascularity. 2. Left lower lung zone thickened parenchymal bands. 3. Minimal blunting of both costophrenic angles (regression of right-sided blunting). 4. Cardiomegaly. 5. No interval changes. 6. Clinical and lab correlation is advised. Electronically signed by Tiffanie Curry 11-17-2024 07:59 AM PG Care Time/CCT Total # of Minutes Spent Total Time Spent with Patient: Total time spent is greater than 50% in coordination of care (as documented) at patient's floor/unit and/or counseling patient: Coding Level of Care Code 10976 SUB INP/OBS CARE 3/50MIN Diagnoses Chronic heart failure with preserved ejection fraction I50.32 Heart failure chronicity: chronic Hypoxia R09.02 Pleural effusion, right J90 Paroxysmal atrial fibrillation I48.0 (1) (HFpEF) heart failure with preserved ejection fraction Heart failure chronicity: chronic Qualified Code(s): I50.32 - Chronic diastolic (congestive) heart failure
[2024-11-17] MEDS: POTASSIUM CHLORIDE CRTAB 20 MEQ TABCR PO STA (11:30)
[2024-11-17] MEDS: FUROSEMIDE 40 MG TAB PO ONE (11:30)
[2024-11-17] MEDS: DIGOXIN 0.25 MG TAB PO SCH (16:04)
[2024-11-18 06:45] LABS: Hematocrit (blood only) 40.8 % (37.0-47.0); Hemoglobin 12.3 g/dl (12.0-16.0); Mean Corpuscular Hemoglobin 20.4 pg (25.0-34.0); Mean Corpuscular Hgb Conc 30.1 g/dL (32.0-36.0); Mean Corpuscular Volume 67.5 fL (80.0-100.0); Mean Platelet Volume 10.3 fL (9.4-12.4); Platelet Count 213 K/uL (130-400); RDW Coefficient of Variation 18.1 % (11.5-14.5); RDW Standard Deviation 39.8 fL (36.4-46.3); Red Blood Count 6.04 M/uL (4.20-5.40); White Blood Count 8.01 K/ul (4.8-10.8)
[2024-11-18 07:16] LABS: BUN Creatinine Ratio 24.7 (10-20); Calcium 8.1 mg/dl (8.6-10.3); Creatinine Clr Calc Pharmacy 55.1 ml/min; Magnesium 2.2 mg/dl (1.7-2.4); Potassium 4.1 mmol/L (3.5-5.1)
--- NOTE | 2024-11-18 07:49 | Hospitalist Progress Note ---
Date of Service November 18, 2024 Assessment & Plan (1) (HFpEF) heart failure with preserved ejection fraction: Plan: Patient is a 89-year-old female with past medical history of A-fib on Eliquis, HFpEF, GERD, hypertension, depression. She presented with symptoms of chest heaviness and dyspnea. Admitted for acute on chronic HFpEF and hypoxia requring supplemental O2 to maintain sats with reports of missing lasix 2x/wk and admitted with afib/RVR. Prior ECHO w/ EF 50-60%. Mild-mod TR, mild-mod MR. Elevated RSVP. (?EDGAR). Given 40mg IV lasix in ER w/ BNP 402. Troponin NOT elevated Suspect acute on chronic HFpEF 2nd to noncompliance w/ medications but also afib w/ uncontrolled weights. Dry weight 80kg and 86.8kg on admission w/ CXR w/ effusion/congestive changes Weight 86.6kg on admission, dry weight ~80kg IMPROVING No further on IV lasix BID given weight 80kg on 11/16 and resumed lasix 40mg PO daily --> CXR w/ slight progression, suspect related to rates --> additional 40mg PO daily w/ AM dose for now and will order dose supplemental Kcl with such Metoprolol increased to 200mg for this morning Digoxin provided 0.25mg on 11/15, repeated PM 11/16 and level not surprisingly 0.6 Multaq has been STOPPED. Would also plan to STOP her amlodipine to prevent leg edema as not needing for BP control Cardiology messaged given HR improved and 90-low 100s however is at rest and likely increased with activity and appreciate further recs/assistance if wanting to continue digoxin. Eliquis BID continued for afib, continues on telemetry monitoring O2 HS and sleep study at hi given suspect underlying EDGAR/elevated RVSP on ECHO and pulmonary HTN w/ drops when sleeping while inpatient Updated daughter Shahnaz regarding plan PT/OT w/ rx for continued HH therapy at [facility], possible dc later today vs med adjustment and dc in AM (pref AM to ensure adequate BP/no hypotension given fall risk for 89yo female) 11/17 BNP actually slightly worse despite weight 79.2kg. Suspect 2nd to HR however will continue usual lasix 40mg PO for now. Mag/K replete. Monitoring for additional prn dose lasix as needed given CXR appearance w/ congestion, WBC wn l/afebrile and no abx at this time/neg procal at 0.09 prior - Metoprolol 200mg daily, digoxin added 0.25mg daily for now and needing to touch base w/ cardiology prior to dc/monitoring of dig level at dc - Appears HR did improve compare to prior and will continue both (2) Hypoxia: Plan: Resolved -- does have drops in O2 w/ sleeping and being arranged at dc w/ recs for sleep study outpt On RA at rest currently, do not suspect PNA but was given Levaquin x 2 doses and no leukocytosis/fever/sputum production Supp O2 as needed/incentive spirometer encouraged (3) Pleural effusion, right: Plan: Noted, f/u on CXR in AM following diuresis as now to dry weight. Lungs appear w/ improvement in air entry/no sputum production --> additional one time PO lasix for today as above (4) Paroxysmal atrial fibrillation: Plan: As above, suspect now permanent, could be from untreated EDGAR vs progression eliquis continued, multaq stopped and titrating metoprolol now up to 200mg AM 11/17 and consideration to continue digoxin -- defer to cards 40meq PO kcl for today given additional dose lasix and will monitor on telemetry Mag stable Plan Chronic medical issues HTN - stable/borderline -- have increased metoprolol for HR control above. Plan to dc amlodipine as above. Lasix dosing TBD if needing reduction in future if improvement w/ rate control but will continue for now GERD - continue PPI , no issues reported anxiety/depression - continue clonazepam and sertraline , mood stable, pleasant/cooperative. Chronic anemia -- hgb better than in the past, improved with diuretics/stable notable MCV<80 but w/ +thalasemia trait. Hgb stable/no bleeding reported DVT proph: eliquis continued Dispo: Continued inpatient stay on increased metoprolol and monitoring on telemetry. Additional one time PO lasix for CXR findings and pleural effusions but do not suspect PNA and likely dc in AM but possible this evening pending HR. Plan to dc to [facility] w/ PT/OT in AM 11/17 likely -updated daughter Shahnaz on phone regarding plan Admission and Anticipated Discharge Date Admission Date: November 13, 2024 Subjective Eval this morning before lunch, sitting up in bed. DId wear O2 last evening and reports got better sleep but some low back pain from bed this morning. Weights down, leg edema baseline/resolved but does have some diminished bases but doesn't appear significantly volume overloaded and got 40mg PO lasix for this morning. Reports not seen by cardiology yet but discussed HR does appear improved trend but still w/ some elevations and wanting direction on continued digoxin/level check - she reports someone from [facility] comes on Wednesdays to [facility] for labs and can have drawn if needed. No shortness of breath, on room air. Results & Data Results & Data Vital Signs (Past 12 Hours) Vital Signs Temp Pulse Pulse Resp BP BP Pulse Ox 11/18/24 07:20 36.5 C 106 H 16 106/74 93 11/18/24 06:50 105 H 11/18/24 03:41 36.7 C 110 H 16 120/75 92 11/17/24 23:27 97 H 11/17/24 22:07 36.6 C 92 H 18 108/69 90 11/17/24 19:54 36.5 C 97 H 18 111/63 89 L O2 Del Method 11/18/24 07:20 Room Air 11/18/24 06:50 11/18/24 03:41 Room Air 11/17/24 23:27 11/17/24 22:07 Room Air 11/17/24 19:54 Room Air PG Care Time/CCT Total # of Minutes Spent Total Time Spent with Patient: Total time spent is greater than 50% in coordination of care (as documented) at patient's floor/unit and/or counseling patient: Coding Diagnoses Chronic heart failure with preserved ejection fraction I50.32 Heart failure chronicity: chronic Hypoxia R09.02 Pleural effusion, right J90 Paroxysmal atrial fibrillation I48.0 (1) (HFpEF) heart failure with preserved ejection fraction Heart failure chronicity: chronic Qualified Code(s): I50.32 - Chronic diastolic (congestive) heart failure
--- NOTE | 2024-11-18 07:52 | XRay Report ---
EXAM: XR chest 1V portable CLINICAL HISTORY: follow up. TECHNIQUE: An X-ray image of the chest is obtained in AP projection. COMPARISON: 11/17/2024 X-ray. FINDINGS: Pulmonary Parenchyma: Bilateral prominent broncho vascular markings and hilar vessels. Suggesting congestion or inflammatory process Stable blunting of both costophrenic angles, With haziness noted in the right lower lung zone suggesting underlying mild infiltrates Stable left lower lung zone thickened parenchymal bands. Heart and Mediastinum: Cardiomegaly. Bony Thorax: Bony thorax appears intact without fractures or deformities. Soft Tissues: Soft tissues overlying the chest wall are unremarkable. IMPRESSION: 1. Bilateral prominent broncho vascular markings and hilar vessels. Suggesting congestion or inflammatory process. 2. Stable blunting of both costophrenic angles, With haziness noted in the right lower lung zone suggesting underlying mild infiltrates. 3. Cardiomegaly. 4. No interval changes. 5. Clinical correlation is advised. Electronically signed by Tiffanie Curry 11-18-2024 07:52 AM
[2024-11-18] MEDS: POTASSIUM CHLORIDE CRTAB 20 MEQ TABCR PO SCH (08:50)
[2024-11-18 11:25] VITALS: RESP 18; TEMP 98.1; O2SAT 91
--- NOTE | 2024-11-18 11:25 | Cardiology Progress Note ---
Date of Service November 18, 2024 Assessment & Plan (1) Persistent atrial fibrillation: (2) Anticoagulant long-term use: (3) (HFpEF) heart failure with preserved ejection fraction: Plan ASSESSMENT/PLAN: 1. Persistent atrial fibrillation: No significant symptoms. Heart rate i mproved with digoxin and titration of metoprolol succinate. Multaq discontinued on 11/13/[address] Holman. Digoxin level in approximately 5 days. Digoxin level today reasonable. Continue anticoagulation for stroke risk reduction. Monitor renal function, electrolytes, digoxin level, CBC. 2. Chronic heart failure with preserved EF: She appears euvolemic. She can maintain her usual outpatient dose of diuretic. Low-sodium diet. Daily weights. Strict I's and O's while hospitalized. 3. Anticoagulation therapy: Monitor renal function and CBC, and for signs of bleeding. 4. Disposition: Follow-up with her primary enologist, Dr. Holman in 1-2 weeks. Patient care discussed with Lesly Issa PA-C, of the primary hospitalist service. Admission and Anticipated Discharge Date Admission Date: November 13, 2024 Subjective Patient seen earlier today. She denies palpitations. She has chronic orthopnea and is at baseline in that regard. She denies chest pain, syncope, near syncope. She was unaccompanied. Physical Exam Physical Exam: Gen.: No acute distress. Alert. HEENT: Anicteric sclera. Neck: No JVD. Cardiac: Irregularly irregular. Normal S1-S2. No murmurs, rubs, or gallops. Pulmonary: Clear to auscultation bilaterally without wheezes, rales, or rhonchi. Abdomen: Soft, nontender, nondistended, with normoactive bowel sounds. No bruits noted. Extremities: 2+ radial pulses bilaterally. 2+ posterior tibialis pulses bilaterally. No edema or cyanosis. Psychiatric: Affect appears appropriate. Results & Data Vital Signs (Past 12 Hours) Vital Signs Temp Pulse Pulse Resp BP BP Pulse Ox 11/18/24 07:25 11/18/24 07:20 36.5 C 106 H 16 106/74 93 11/18/24 06:50 105 H 11/18/24 03:41 36.7 C 110 H 16 120/75 92 11/17/24 23:27 97 H O2 Del Method 11/18/24 07:25 Room Air 11/18/24 07:20 Room Air 11/18/24 06:50 11/18/24 03:41 Room Air 11/17/24 23:27 Intake & Output 11/16/24 11/17/24 11/18/24 11/19/24 06:59 06:59 06:59 06:59 Intake Total 360 / 360 200 / 200 1400 / 1400 240 / 240 Output Total 1101 / 1101 601 / 601 150 / 150 Balance -741 / -741 -401 / -401 1250 / 1250 239 / 239 Weight 184 lb 4.903 oz 181 lb 14.102 oz 179 lb 14.355 oz 174 lb 9.698 oz Laboratory Results Laboratory Results - last 24 hr 11/18/24 06:12 WBC 8.01 RBC 6.04 H Hgb 12.3 Hct 40.8 MCV 67.5 L MCH 20.4 L MCHC 30.1 L RDW Std Deviation 39.8 RDW Coeff of Mikayla 18.1 H Plt Count 213 MPV 10.3 Sodium 141 Potassium 4.1 Chloride 107 Carbon Dioxide 27 Anion Gap 7 BUN 18 Creatinine 0.73 Est Cr Clr Drug Dosing 55.1 eGFR 78.56 BUN/Creatinine Ratio 24.7 H Glucose 91 Calcium 8.1 L Magnesium 2.2 B-Natriuretic Peptide 518 H Diagnostic Findings Limited echo 11/14/2024: Normal LV size, wall motion, systolic function. EF 60 to 65%. Labs reviewed from 11/18/2024 and notable for normal potassium, normal renal function, normal blood counts. Normal magnesium. Labs from 11/13/2024 demonstrated normal TSH. ECG personally reviewed from 11/14/2024: Atrial fibrillation with RVR 107 bpm. Cardiology consultation report reviewed from 11/14/2024 and progress note from 11/16/2024. Telemetry personally reviewed: Atrial fibrillation 70s to 90s when reviewed late this morning. Heart rate has improved. Medications Administered Current Inpatient Medications Acetaminophen (Acetaminophen 325 Mg Tab) 650 mg PO Q4H PRN PRN Reason: Pain or Fever Stop: 12/13/24 14:59 Last Admin: 11/18/24 07:25 Dose: 650 mg Apixaban (Apixaban 5 Mg Tablet) 5 mg PO BID [facility]IRO Stop: 12/13/24 20:59 Last Admin: 11/18/24 07:25 Dose: 5 mg Clonazepam (Clonazepam 0.25 Mg Od Tab) 0.25 mg PO BID [facility] Stop: 12/13/24 20:59 Last Admin: 11/18/24 07:25 Dose: 0.25 mg Digoxin (Digoxin 0.25 Mg Tab) 0.25 mg PO DAILY@1600 [facility] Stop: 12/17/24 15:59 Last Admin: 11/17/24 16:04 Dose: 0.25 mg Docusate Sodium (Docusate Sodium 100 Mg Cap) 100 mg PO BID PRN PRN Reason: Constipation Stop: 12/13/24 14:59 Furosemide ([facility]semide 40 Mg Tab) [facility] [place] Stop: 12/17/24 08:59 Last Admin: 11/18/24 07:25 Dose: 40 mg Metoprolol Succinate (Metoprolol Succ 50mg Ext Rel Tab) [facility] [place] Stop: 12/17/24 08:59 Last Admin: 11/18/24 07:24 Dose: 200 mg Pantoprazole Sodium (Pantoprazole 40 Mg Tab) 40 mg PO BID [facility] Stop: 12/13/24 20:59 Last Admin: 11/18/24 07:25 Dose: 40 mg Potassium Chloride (Potassium Chloride Crtab 20 Meq Tabcr) [facility] meq [facility] [place] Stop: 12/18/24 08:59 Last Admin: 11/18/24 08:50 Dose: 20 meq Sertraline HCl (Sertraline Hcl 100 Mg Tablet) 100 mg PO DAILY [facility] Stop: 12/14/24 08:59 Last Admin: 11/18/24 07:25 Dose: 100 mg Vitamin D (Cholecalciferol 25 Mcg (1000 Units) Tab) 50 mcg PO QAM [facility] Stop: 12/14/24 08:59 Last Admin: 11/18/24 07:24 Dose: 50 mcg PG Care Time/CCT Total # of Minutes Spent Total Time Spent with Patient: Total time spent is greater than 50% in coordination of care (as documented) at patient's floor/unit and/or counseling patient: Coding Level of Care Code 96440 SUB INP/OBS CARE 3/50MIN Diagnoses Persistent atrial fibrillation I48.19 Anticoagulant long-term use Z79.01 Chronic heart failure with preserved ejection fraction I50.32 Heart failure chronicity: chronic (3) (HFpEF) heart failure with preserved ejection fraction Heart failure chronicity: chronic Qualified Code(s): I50.32 - Chronic diastolic (congestive) heart failure
--- NOTE | 2024-11-18 13:13 | Discharge Summary ---
Discharge Summary Date of Service November 18, 2024 Principal Dx & Hospital Course #1 = Principal Diagnosis (1) (HFpEF) heart failure with preserved ejection fraction: 89yo female with PMHx significant for afib/HFpEF presented with chest heaviness/dyspnea and increased leg edema following missing her lasix 2x/week for the past month with evidence for acute on chronic heart failure with preserved ejection fraction. BNP 402, troponin not elevated however notable CXR with evidence for congestive changes. Weight 86.2kg with dry weight ~80kg reported Placed on lasix 40mg IV BID on admission however noted recent admission for afib requiring cardioversion and on multaq with admission EKG w/ afib/RVR rate 99bpm w/ elevated HR on telemetry in atrial fibrillation and suspect combination of now more permanent/persistent atrial fibrillation in combination with missing diuretics contributing to admission along with suspected underlying EDGAR given elevated RVSP on prior echos with notable drop in O2 saturations while sleeping inpatient previous admissions which could make her afib more persistent/permanent in nature. Cardiology consulted and ECHO essentially unchanged from prior STOPPED Multaq, increased her metoprolol which eventually was increased to 200mg daily on 11/17 however with continued elevated rates was added digoxin 0.25mg on 11/15 and was repeated on 11/16 with dig level 0.6 but was not given loading dose. Continued 0.25mg dose on 11/17 and level 0.8 prior to discharge and discussed with cardiology and plans to continue 0.125mg PO daily at discharge with recs for checking digoxin level in 5 days, rx provided. HRs were 90-low 100s prior to dc and on RA/no leg edema despite CXR findings and was without fever/sputum production to suggest infection and procal was neg at 0.09. Weight down to 80kg on 11/17 and was provided additional 40mg PO lasix as switched back to usual 40mg PO and weight 79.2kg prior to discharge and rec to continue monitoring weights/40mg po daily continued with supplemental Kcl with ongoing therapy. Her amlodipine was discontinued as can contribute to worsening leg edema and not needing for BP control. BP 119/66 prior to discharge and tolerating increased dose of metoprolol/ongoing digoxin well without significant issues. At discharge, was also provided rx for O2 HS given overnight sleep study found to be positive and rec'd to have PCP arrange for formal sleep study as an outpatient. PT/OT cleared for return home to independent living at the [facility] with ongoing PT/OT and rx provided to CM prior to dc to continue therapy as getting from her hip in the past. [facility] and should consider f/u CHF clinic as well - ref sent at dc instructions (2) Hypoxia: As above, treated with rate control/diuresis. PNA entertained but given no leukocytosis/fever/sputum production and negative procal did not continue abx past levaquin x 2 doses provided O2 acceptable prior to dc, O2 HS as above and recs for sleep study RN asked to provide incentive spirometer and encourage continued use at discharge to help w/ atelectasis Monitor for any issues at dc/return if occurs. (3) Pleural effusion, right: As above, improved lung exam w/ diuretics and weights improved. CXR may be lagging behind but was sent on continued lasix w/ increased rate controlling medications for afib/CHF as above and f/u CHF (4) Paroxysmal atrial fibrillation: As above suspect more persistent/permanent in nature, likely worsened with untreated EDGAR which O2 has been arranged HS at dc and multaq stopped given persistent nature and metoprolol increased as above/digoxin added Continued metoprolol 200mg, digoxin 0.125mg PO daily at dc with dig level later this week/cardiology follow up Mag/K replete prior to dc and continues on Kcl w/ ongoing lasix. Plan DVT proph: eliquis continued, appropriate given age/weight and renal function however could consider reduction to 2.5mg BID if weights remain <80kg (noting "dry weight ~80kg and will continue 5mg BID for now, hgb stable/no bleeding reported) Notes For Next Care Provider Follow up digoxin level later this week, ensure outpatient sleep study arranged for suspected EDGAR to help with afib/CHF Monitor CBC, BMP, mag in f/u labs Low salt diet/fluid restriction 2L/daily encouraged Consideration to reduce eliquis dosing to 2.5mg BID in follow up if weights remain <80kg given age >85 but has stable renal function and typically >80kg and continues on 5mg BID for stroke prevention. Hgb improved 12.3/stable with ongoing diuresis back to dry weight Medication Changes From Visit Metoprolol increased to 200mg PO daily Digoxin 0.125mg PO daily Amlodipine DISCONTINUED Multaq DISCONTINUED Admission HPI Per Admitting Provider Patient is a 89-year-old female with past medical history of A-fib on Eliquis, HFpEF, GERD, hypertension, depression. She presents today due to chest heaviness and dyspnea. In ED x-ray showed small right pleural effusion, associated consolidation. She is being admitted for hypoxia and IV diuresis. Patient seen at bedside and on 2 L O2 via nasal cannula with O2 sat at 95%; patient does not use oxygen at baseline. She stated that she started with shortness of breath on exertion yesterday that got much worse this morning. She does not have dyspnea at baseline with history of CHF. She also has associated chest heaviness, denies sharp, stabbing chest pain. She stated her lower extremity edema is mildly worse than normal for the past few days. She also endorses 1 episode of diarrhea yesterday. Patient denies fever, chills, headache, dizziness, lightheadedness, rhinorrhea, sore throat, cough, sputum production, dyspnea at rest, abdominal pain, nausea, vomiting. she has not had any sick contacts. Regarding her dietshe eats 1 meal a day provided by the [employer], low-salt. She typically eats cereal and fruit for breakfast. She has an occasional peanut butter and jelly sandwich. She tries to limit her salt intake. She did however state that she sometimes misses her Lasix. She misses it approximately 2 times a week for the past month. She has difficulty deciding what time and did take it depending on what she has going on that day. She did take all of her home medications this morning but did not take her Lasix today. She wishes to be full code at this time. Admission Exam Per Admitting Provider The patient is awake, alert and oriented 3, well developed and well nourished, normocephalic and atraumatic, in no acute distress. Non-toxic appearing. HEENT- EOMI, mucous membranes moist. Hearing grossly intact. Heart-normal S1 and S2. No murmurs, rubs or gallops. Lungs-diminished RLL, no respiratory distress, no accessory muscle use. Abdomen-normal bowel sounds and soft. No ascites noted. Non-tender. Extremities- no clubbing, cyanosis. +1 pitting edema BL LE. Rheumatologic-normal range of motion. Psychiatric-normal affect. Discharge Exam General: 89 yo female sitting up in bed, appears improved, reports feeling better/got better rest last night HEENT: head atraumatic, normocephalic, mmm, trachea midline, JVD improved/resolved Resp: even, unlabored, slightly decreased in the bases with associated crackles but on room air, no wheezing/cough, no tachypnea (RN to send with incentive spirometer) CV: Irregularly irregular, rates -thr 100s on monitor, trace pedal edema stable, no pitting, improved from yesterday, calves nontender/pulses present GI: +BS, soft, no overt tenderness/guarding/rebound ; no english, has been using purewick MSK/Neuro: generalized weakness but MUCH improved, nonfocal, not confused, answering questions appropriately, following commands Psych: AOx3, cooperative and pleasant with exam Discharge Plan Discharge Items Patient Disposition: Home - Self-Care Reason For Visit: ACUTE CHF, HYPOXIA Discharge Diagnosis: Acute heart failure, afib with rapid rate Goals: You have been hospitalized for an acute medical problem. During your stay at [facility], we have made an effort to correct the problem that brought you to the hospital while keeping you as comfortable as possible. M edications were used to bring your condition under control and your discharge instructions will include directions for any medications you should take after leaving the hospital. Please make sure you see your Primary Care Provider as part of your follow up plan. Activity: Resume your previous activity Non-emergency contact: Primary Care Provider and Roll Icer Call non-emergency contact if: you have any medication questions, your symptoms worsen, your pain is not controlled, your pain is concerning for you and you have a fever Follow-up/Referrals: Candido Holman MD [Physician] - (2-3 weeks) Olman Vigil MD [Primary Care Provider] - Diet: Heart Healthy and Low Sodium (2gm) Fluids: 2000ml (8 cups) Ambulatory Orders: Digoxin (Routine) Timeframe: [id number] Location: Determined by Patient Ordered By: Lesly Issa Addtl Attending Provider Instructions: You have been hospitalized for shortness of breath/heart failure and I suspect it was a combination of missing your diuretics but also your atrial fibrillation with elevated heart rates which seems to be more permanent in nature. I consulted cardiology and we have made multiple medication adjustments while in the hospital to help with rate control which should hopefully help with symptoms as well as prevention of need for readmission as well as diuretics to help pull off extra fluid and get you to your "dry weight". At discharge, you medication changes are as follows: * Metoprolol has been INCREASED to 200mg by mouth once daily in the morning * DISCONTINUE MULTAQ -- not helping to keep you in a normal rhythm and has been stoped * Amlodipine has been STOPPED as this can cause leg swelling and you do not need this for blood pressure control * Digoxin 0.125mg by mouth once daily. You will need repeat digoxin level in 5 days per cardiology Your lasix (furosemide) for water/edema at discharge has been continued at the prior once daily 40mg but this may need reduced/increased pending repeat weights with ongoing control of your heart rate. Please continue a low salt diet and avoid excessive fluid intake over 2L in a 24 hour period of time. You should continue to monitor your weights daily and keep a log and you may require an additional dose as needed for weight gain. You should have follow up with cardiology at discharge for ongoing management/adjustments as needed. We also checked an overnight oxygen test as appears to drop with sleeping and I suspect probably some underlying sleep apnea and this was positive and we are setting you up with the oxygen to wear as wearing in the hospital at night/when sleeping and recommend you have a formal sleep study/CPAP arranged following results of study at discharge with primary care. Please follow up with primary care in the next 7-10 days after discharge to monitor your progress after hospitalization. Please return to the ER with any worsening shortness of breath, chest pain, fever/chills, or for any other symptoms concerning for you. It has been a pleasure being a part of the medical team providing for you while you have been in the hospital. Take care! Pending Studies at Discharge: No Stand-Alone Forms: My [facility] blinkbox music, Smoking Cessation Medications and DC Order Prescriptions: New metoprolol succinate 200 mg tablet extended release 24 hr 200 mg PO DAILY Qty: 30 0RF digoxin 125 mcg (0.125 mg) tablet 125 mcg PO DAILY Qty: 30 0RF Continued Eliquis 5 mg tablet 5 mg PO BID Qty: 180 3RF furosemide 40 mg tablet 40 mg PO DAILY Prolia 60 mg/mL syringe 0 mg subcut Q6MO Rx Instructions: dose unknown multivitamin Tablet 1 tab PO UD Rx Instructions: 1 tab po qam. Not on faxed medication list unable to verify clonazepam 0.25 mg tablet,disintegrating 0.25 mg PO BID Qty: 60 0RF pantoprazole 20 mg tablet,delayed release (DR/EC) 20 mg PO BID acetaminophen [Tylenol Extra Strength] 500 mg Tablet 500 mg PO QID simethicone [Gas-X Extra Strength] 125 mg Tablet,Chewable 125 mg PO UD PRN (Reason: GAS RELIEF) Rx Instructions: 125 mg po as directed prn. Not on faxed medication list unable to verify Refresh Optive 0.5-0.9 % Drops 1 drp OPHTHALMIC (EYE) UD PRN (Reason: Dry Eyes) Rx Instructions: 1 dorp eye as directed prn. Not on faxed medication list unable to verify cholecalciferol (vitamin D3) 25 mcg (1,000 unit) Capsule 2,000 unit PO QAM Qty: 60 0RF sertraline 50 mg tablet 100 mg PO DAILY Qty: 60 0RF potassium chloride 20 mEq tablet extended release 20 meq PO BID Qty: 60 0RF Discontinued amlodipine [Norvasc] 5 mg Tablet 5 mg PO BID Qty: 60 2RF Hold Instructions: Resume on 11/04/23. holding while on diuretics to prevent hypotension metoprolol succinate [Toprol XL] 100 mg tablet extended release 24 hr 100 mg PO DAILY Multaq 400 mg Tablet 400 mg PO BID Qty: 60 0RF Discharge Orders: Discharge Order- CHF (Routine); Ordered 11/18/24 Ordered By: Lesly Issa Admission Data Admit Date/Time: 11/13/24 11:39 Attending Provider: Tonny Monge Admit Provider: Jordon Estrada Primary Care Provider: Olman Vigil Other Providers: Jordon Estrada; Mejia Bland Other Interventions: Discharge Summary Assessment (RN) Last Done: 11/18/24 14:41 Hospital Stay Data Consultations 11/13/24 11:20 ED Decision to Admit Stat 11/14/24 08:25 Consult Cardiology Routine Diagnostic Imagining Performed Chest X-Ray 11/13/24 09:49 XR chest 1V portable CLINICAL HISTORY: Chest pain, nonspecific COMPARISON STUDY: 09/09/2024 FINDINGS: There is stable cardiomegaly with increased pulmonary vascular congestion. There is interval opacity at the right base with obscuration of the diaphragm. No pneumothorax. IMPRESSION: CHF with small right pleural effusion and associated right lung base consolidation. ACT 112: Negative or not required by law. Electronically signed by: Wai Green M.D. 11/13/2024 10:32 AM Chest X-Ray 11/14/24 08:25 XR chest 2V PA/lateral CLINICAL HISTORY: f/u chf, consolidation COMPARISON STUDY: 11/13/2024 FINDINGS: Stable cardiomegaly with pulmonary vascular congestion consistent with CHF. Stable small right pleural effusion and consolidation at the right lung base. No pneumothorax. IMPRESSION: Stable exam. ACT 112: Negative or not required by law. Electronically signed by: Wai Green M.D. 11/14/2024 10:00 AM Chest X-Ray 11/15/24 07:00 EXAM: XR chest 1V portable CLINICAL HISTORY: F/U CONSOLIDATION. TECHNIQUE: An X-ray of the chest was performed in AP projections. COMPARISON: 09/09/2024. FINDINGS: Right-sided blunted costophrenic angle with rising level suggesting pleural effusion, a new finding. Subtle blunting of the left costophrenic angle suggesting minimal pleural effusion, stable. No gross air-space opacities were noted in both lung olmos. Still noted prominent bilateral perihilar vasculature. Left lower zonal linear opacity ( likely an atelectatic band). Apparently, enlarged cardiac size given an AP projection yet stable when compared with the previous study. No acute osseous abnormality. IMPRESSION: 1. Newly demonstrated right-sided and stable left-sided minimal pleural effusion. 2. Still noted prominent bilateral perihilar vasculature, likely representing congestion. 3. Prominent cardiac shadow (stable from previous study). Electronically signed by Tiffanie Curry 11-15-2024 07:40 AM Chest X-Ray 11/17/24 07:00 EXAM: XR chest 1V portable CLINICAL HISTORY: f/u tgb. TECHNIQUE: An X-ray image of the chest is obtained in AP projection. COMPARISON: Prior study dated 11/15/2024. FINDINGS: Pulmonary Parenchyma: Bilateral prominent broncho vascular markings and hilar vascularity Left lower lung zone thickened parenchymal bands Blunting of both costophrenic angles No evidence of consolidation, collapse, or focal opacities. No pulmonary nodules are identified. Heart and Mediastinum: Cardiomegaly. No mediastinal widening or masses. No hilar or mediastinal lymphadenopathy. Bony Thorax: Bony thorax appears intact without fractures or deformities. Soft Tissues: Soft tissues overlying the chest wall are unremarkable. IMPRESSION: 1. Bilateral prominent broncho vascular markings and hilar vascularity. 2. Left lower lung zone thickened parenchymal bands. 3. Minimal blunting of both costophrenic angles (regression of right-sided blunting). 4. Cardiomegaly. 5. No interval changes. 6. Clinical and lab correlation is advised. Electronically signed by Tiffanie Curry 11-17-2024 07:59 AM Chest X-Ray 11/18/24 07:00 EXAM: XR chest 1V portable CLINICAL HISTORY: follow up. TECHNIQUE: An X-ray image of the chest is obtained in AP projection. COMPARISON: 11/17/2024 X-ray. FINDINGS: Pulmonary Parenchyma: Bilateral prominent broncho vascular markings and hilar vessels. Suggesting congestion or inflammatory process Stable blunting of both costophrenic angles, With haziness noted in the right lower lung zone suggesting underlying mild infiltrates Stable left lower lung zone thickened parenchymal bands. Heart and Mediastinum: Cardiomegaly. Bony Thorax: Bony thorax appears intact without fractures or deformities. Soft Tissues: Soft tissues overlying the chest wall are unremarkable. IMPRESSION: 1. Bilateral prominent broncho vascular markings and hilar vessels. Suggesting congestion or inflammatory process. 2. Stable blunting of both costophrenic angles, With haziness noted in the right lower lung zone suggesting underlying mild infiltrates. 3. Cardiomegaly. 4. No interval changes. 5. Clinical correlation is advised. Electronically signed by Tiffanie Curry 11-18-2024 07:52 AM ECHOCARDIOGRAM 11/14/24 Normal LV size and systolic function. EF 60-65%. No regional wma. Mild concentric LVH. Limited 2D ECHO. Compared to prior study, LV systolic funciton remains normal. Discharge Instructions Given to Patient (Per Discharging Provider) You have been hospitalized for shortness of breath/heart failure and I suspect it was a combination of missing your diuretics but also your atrial fibrillation with elevated heart rates which seems to be more permanent in nature. I consulted cardiology and we have made multiple medication adjustments while in the hospital to help with rate control which should hopefully help with symptoms as well as prevention of need for readmission as well as diuretics to help pull off extra fluid and get you to your "dry weight". At discharge, you medication changes are as follows: * Metoprolol has been INCREASED to 200mg by mouth once daily in the morning * DISCONTINUE MULTAQ -- not helping to keep you in a normal rhythm and has been stoped * Amlodipine has been STOPPED as this can cause leg swelling and you do not need this for blood pressure control * Digoxin 0.125mg by mouth once daily. You will need repeat digoxin level in 5 days per cardiology Your lasix (furosemide) for water/edema at discharge has been continued at the prior once daily 40mg but this may need reduced/increased pending repeat weights with ongoing control of your heart rate. Please continue a low salt diet and avoid excessive fluid intake over 2L in a 24 hour period of time. You should continue to monitor your weights daily and keep a log and you may require an additional dose as needed for weight gain. You should have follow up with cardiology at discharge for ongoing management/adjustments as needed. We also checked an overnight oxygen test as appears to drop with sleeping and I suspect probably some underlying sleep apnea and this was positive and we are setting you up with the oxygen to wear as wearing in the hospital at night/when sleeping and recommend you have a formal sleep study/CPAP arranged following results of study at discharge with primary care. Please follow up with primary care in the next 7-10 days after discharge to monitor your progress after hospitalization. Please return to the ER with any worsening shortness of breath, chest pain, fever/chills, or for any other symptoms concerning for you. It has been a pleasure being a part of the medical team providing for you while you have been in the hospital. Take care! Supervising Physician Co-Signing Physician Notes The patient was not seen by me. The chart was reviewed. Case discussed with GIACOMO Hester. Agree with assessment and plan Total Time Total Time Spent Total Time Spent (In Minutes): 60 Coding Level of Care Code 40074 INP/OBS DISCH >30 MIN Diagnoses Chronic heart failure with preserved ejection fraction I50.32 Heart failure chronicity: chronic Hypoxia R09.02 Pleural effusion, right J90 Paroxysmal atrial fibrillation I48.0
[2024-11-18 14:42] VITALS: BP 106/74
[2024-11-18 14:55] VITALS: PULSE 100
[2024-11-18] MEDS: DIGOXIN 0.125 MG TAB PO SCH (14:55)
== END 2024-11-18 16:33 | disposition home or self-care (01) | DRG 291 ==
LOC: ED 09:34 → SUATTDRO 11:39 → EDINP 11:39 → 2N 20:15